=== PATIENT | male | born 1950 | race African-American/Black ===

== ENCOUNTER 2018-06-25 10:21 | Inpatient (IN) | payer OTHER ==
--- NOTE | 2018-06-25 09:27 | PN ---
Progress Note (short form) - Note Progress Note: 67M s/p LEFT total knee replacement POD #0. -Pain control. -DVT PPx: -Chemical: Lovenox, Warfarin: bridge to therapeutic INR (2-3). -Mechanical: BARB's, SCD's. -Incentive spirometry q15 min. -PT/OT/Rehab, OOB. -WBAT RLE. -Post-op Ancef x 3 doses. -f/u post-op TOV: 8 hours max. -f/u AM labs. -f/u drain output. -Diet as tolerated. -Care per medical hospitalist team. -Discharge planning: f/u [facility] [place] [facility] 07/03/2018; call for appointment . -Will follow. Jonathan Langston MD (Orthopaedic Surgery).
[2018-06-25 11:19] LABS: INR 1.18 (0.82-1.09); PROTHROMBIN TIME (PATIENT) 13.2 SEC (10.2-13.0)
[2018-06-25] MEDS ORDERED: TRANEXAMIC ACID 1000 MG/10 ML VIAL IVPUSH ONE (12:00)
[2018-06-25] MEDS ORDERED: CEFAZOLIN 2 GM in DEXTROSE 5%-WATER - 50 ML IVPB ONE (12:00)
[2018-06-25] MEDS ORDERED: VANCOMYCIN 1,750 MG in DEXTROSE 5%-WATER - 500 ML IVPB ONE (12:00)
[2018-06-25] MEDS ORDERED: MIDAZOLAM HCL 2 MG/2 ML SINGLE DOSE VIAL ONE ×2 (12:12→14:49)
[2018-06-25] MEDS ORDERED: BUPIVACAINE LIPOSOME/PF (EXPAREL) 266 MG/20 ML VIAL ONE (12:12)
[2018-06-25] MEDS ORDERED: SODIUM CHLORIDE 0.9% P/F 10 ML VIAL IJ ONE (12:13)
[2018-06-25] MEDS ORDERED: MAGNESIUM HYDROX 2400MG/30ML ORAL SUSPENSION 30 ML CUP PO PRN (14:49)
[2018-06-25] MEDS ORDERED: MAG HYDROX/AL HYDROX/SIMETH 30 ML UNIT-DOSE CUP PO PRN (14:49)
[2018-06-25] MEDS ORDERED: ONDANSETRON 4 MG/2 ML VIAL IVPUSH PRN ×2 (14:49→16:34)
--- NOTE | 2018-06-25 14:55 | OP ---
Operative Note - Note: Operative Date: 06/25/18 Pre-Operative Diagnosis: Tricompartment osteoarthritis left knee Operation: Left total knee replacement Implants: [employer]. Femur - 5. Tibia - 6, [id number] stem. Poly - 16mm , TS. Patella - 27mm, symmetric Surgeon: Jonathan Langston Compensation Adjuster: Hilario Langston Anesthesiologist/COACH OPERATOR: Pato Patrick Anesthesia: Spinal Specimens Removed: Bone, soft tissue Estimated Blood Loss (mls): 0 Drains & Tubes with Location: 1 x deep HemoVac Fluid Volume Replaced (mls): 1,800 (Crystalloid) Operative Report Dictated: Yes
[2018-06-25] MEDS ORDERED: LACTATED RINGERS SOLUTION 1,000 ML IV SCH (15:00)
[2018-06-25] MEDS ORDERED: WARFARIN NA 5 MG TABLET (UD) PO SCH ×2 (15:00→18:00)
[2018-06-25] MEDS ORDERED: PATIENT'S OWN MEDICATION (NON-FORMULARY) (Warfarin Sodium [Coumadin] 4 MG) PO SCH (15:00)
[2018-06-25] MEDS ORDERED: BENZOIN/ALOE VERA/STORAX/TOLU 58 ML BOTTLE ONE (15:19)
[2018-06-25] MEDS ORDERED: oxyCODONE HCL 5 MG TABLET PO PRN (16:34)
[2018-06-25] MEDS ORDERED: PROMETHAZINE HCL 25 MG/1 ML VIAL IVPUSH PRN (16:34)
[2018-06-25] MEDS: ACETAMINOPHEN 325 MG TABLET (FP) PO SCH ×2 (17:00→22:56)
--- NOTE | 2018-06-25 17:41 | CONSULT ---
Consultation: REQUESTING PROVIDER: Dr. Jonathan Langston CONSULT REQUEST: We have been asked to medically evaluate this patient post- operatively. 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 Jonathan Langston. REVIEW OF SYSTEMS: CONSTITUTIONAL: Absent: fever, chills, diaphoresis, generalized weakness, malaise, loss of appetite, weight change HEENT: Absent: rhinorrhea, nasal congestion, throat pain, throat swelling, difficulty swallowing, mouth swelling, ear pain, eye pain, visual changes CARDIOVASCULAR: Absent: chest pain, syncope, palpitations, irregular heart rate, lightheadedness , peripheral edema RESPIRATORY: Absent: cough, shortness of breath, dyspnea with exertion, orthopnea, wheezing, stridor, hemoptysis GASTROINTESTINAL: Absent: abdominal pain, abdominal distension, nausea, vomiting, diarrhea, constipation, melena, hematochezia GENITOURINARY: Absent: dysuria, frequency, urgency, hesitancy, hematuria, flank pain, genital pain MUSCULOSKELETAL: Absent: myalgia, arthralgia, joint swelling, back pain, neck pain SKIN: Absent: rash, itching, pallor HEMATOLOGIC/IMMUNOLOGIC: Absent: easy bleeding, easy bruising, lymphadenopathy, frequent infections ENDOCRINE: Absent: unexplained weight gain, unexplained weight loss, heat intolerance, cold intolerance NEUROLOGIC: Absent: headache, focal weakness or paresthesias, dizziness, unsteady gait, seizure, mental status changes, bladder or bowel incontinence PSYCHIATRIC: Absent: anxiety, depression, suicidal or homicidal ideation, hallucinations. PHYSICAL EXAMINATION Vital Signs - 24 hr 06/25/18 06/25/18 06/25/18 11:07 15:53 15:55 Temperature 98.5 F 97.6 F Pulse Rate 80 77 76 Respiratory 18 22 H 18 Rate Blood Pressure 152/86 152/90 156/90 O2 Sat by Pulse 97 99 Oximetry (%) 06/25/18 17:03 Temperature 97.6 F Pulse Rate 68 Respiratory 14 Rate Blood Pressure 148/82 O2 Sat by Pulse Oximetry (%) GENERAL: Awake, alert, and fully oriented. Anxious. HEAD: Normal with no signs of trauma. EYES: Pupils equal, round and reactive to light, extraocular movements intact, sclera anicteric, conjunctiva clear. No lid lag. EARS, NOSE, THROAT: Ears normal, nares patent, oropharynx clear without exudates. Moist mucous membranes. NECK: Normal range of motion, supple without lymphadenopathy, JVD, or masses. LUNGS: Breath sounds equal, clear to auscultation bilaterally. No wheezes, and no crackles. No accessory muscle use. HEART: Regular rate and rhythm, normal S1 and S2 without murmur, rub or gallop. ABDOMEN: Soft, nontender, not distended, normoactive bowel sounds, no guarding, no rebound, no masses. No hepatomegaly or splenomegaly. MUSCULOSKELETAL: Normal range of motion at all joints. No bony deformities or tenderness. No CVA tenderness. UPPER EXTREMITIES: 2+ pulses, warm, well-perfused. No cyanosis. No clubbing. Cap refill <2 seconds. No peripheral edema. LOWER EXTREMITIES: 2+ pulses, warm, well-perfused. LLE: blood soaked through surgical dressings, unwrapped, taken down to surgicel which had strikethrough; hemovac draining sanguinous fluid NEUROLOGICAL: Cranial nerves II-XII intact. Normal speech. Laboratory Results - last 24 hr 06/25/18 10:54 PT with INR 13.2 H INR 1.18 Active Medications Generic Name Dose Route Start Last Admin Trade Name Freq PRN Reason Stop Dose Admin Acetaminophen 650 mg 06/25/18 17:00 06/25/18 17:00 Tylenol - PO 06/28/18 16:59 650 mg Q6H FERNANDA Administration Al Hydroxide/Mg Hydroxide 30 ml 06/25/18 14:49 Mylanta Oral Suspension - PO Q4H PRN DYSPEPSIA Amlodipine Besylate 10 mg 06/26/18 10:00 Norvasc - PO DAILY FERNANDA Aspirin 81 mg 06/26/18 10:00 Ecotrin - PO BID FERNANDA Enoxaparin Sodium 60 mg 06/26/18 10:00 Lovenox - SQ BID FERNANDA Fentanyl 50 mcg 06/25/18 16:34 Sublimaze Injection - IVPUSH 06/26/18 03:00 Q5M PRN PAIN-PACU ORDER X 4 DOSES ONLY Finasteride 5 mg 06/25/18 22:00 Proscar - PO HS FERNANDA Cefazolin Sodium 1 gm in 50 mls @ 100 mls/hr 06/25/18 21:00 Ancef 1 Gm Premixed Ivpb - IVPB 06/26/18 13:29 Q8H [facility] Lactated Ringer's 1,000 mls @ 125 mls/hr 06/25/18 15:00 Lactated Ringers Solution IV 06/26/18 06:00 ASDIR [facility] Lisinopril 40 mg 06/26/18 10:00 Prinivil PO DAILY [facility] Magnesium Hydroxide 30 ml 06/25/18 14:49 Milk Of Magnesia - PO PRN PRN CONSTIPATION Metoprolol Succinate 50 mg 06/26/18 10:00 Toprol Xl - PO DAILY [facility] Multivitamins/Minerals/Vitamin C 1 tab 06/26/18 10:00 Tab-A-Vit - PO DAILY [facility] Ondansetron HCl 4 mg 06/25/18 16:34 Zofran Injection IVPUSH Q6H PRN NAUSEA AND/OR VOMITING Oxycodone HCl 5 mg 06/25/18 16:34 Roxicodone - PO Q3H PRN PAIN LEVEL 1-5 Oxycodone HCl 10 mg 06/25/18 16:34 Roxicodone - PO Q3H PRN PAIN LEVEL 6-10 Oxycodone HCl 10 mg 06/25/18 22:00 Oxycontin - PO 06/28/18 16:35 BID [facility] Pantoprazole Sodium 40 mg 06/26/18 10:00 Protonix - PO DAILY [facility] Phenytoin Sodium 500 mg 06/25/18 22:00 Dilantin - PO HS [facility] Promethazine HCl 12.5 mg 06/25/18 16:34 Phenergan Injection - IVPUSH Q6H PRN NAUSEA-FOR RESCUE AFTER 15 MIN Senna/Docusate Sodium 1 tablet 06/25/18 22:00 Pericolace - PO BID [facility] Tamsulosin HCl 0.4 mg 06/25/18 22:00 Flomax - PO HS [facility] Warfarin Sodium 5 mg 06/25/18 18:00 Coumadin - PO Q48H [facility] Warfarin Sodium 10 mg 06/26/18 18:00 Coumadin - PO Q48H [facility] ASSESSMENT/PLAN: 67 year-old male with a PMH significant for HTN, HLD, 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 Jonathan Langston. Surgical dressing with significant strikethrough Hemovac drain - need measurement has been getting subtherapeutic lovenox pre-op as ordered by PCP, 60 BID instead of 120BID INR subtherapeutic 1.18 on coumadin Start heparin drip type and screen stat cbc 2 U on standby stop ASA --POD #0 --perioperative antibiotics per surgery --pain management per surgery --ASA 81mg BID --protonix --bowel regimen --incentive spirometry --Hemovac drain, monitor output FEN Fluids: PO intake adequate Electrolytes: replete as indicated Nutrition: regular diet DVT prophylaxis: OOB, ambulation, SCDs, TEDs, heparin drip PTT goal 60-80 Physical therapy Dispo: We will continue to follow the patient. Thank you for this consultative opportunity. Visit type - Emergency Visit Emergency Visit: No - New Patient This patient is new to me today: Yes Date on this admission: 06/26/18 - Critical Care Critical Care patient: No
[2018-06-25] MEDS ORDERED: HEPARIN NA (PORCINE) 5,000 UNITS/ML 1ML VIAL IVPUSH PRN ×2 (20:58)
[2018-06-25] MEDS ORDERED: HEPARIN SOD,PORK IN 0.45% NACL 25,000 UNITS/500 ML INFUS.BAG IVPB SCH ×2 (21:00→21:56)
[2018-06-25] MEDS: CEFAZOLIN 1 GM/D5W 1 GM/50 ML BAG IVPB SCH (21:14)
[2018-06-25] MEDS: TAMSULOSIN HCL 0.4 MG CAP PO SCH (21:14)
[2018-06-25] MEDS: SENNOSIDES/DOCUSATE COMBO (SENNA PLUS) TABLET (UD) PO SCH (21:14)
[2018-06-25] MEDS: FINASTERIDE 5 MG TABLET (FP) PO SCH (21:14)
[2018-06-25] MEDS: PHENYTOIN NA EXTENDED 100 MG CAPSULE (FP) PO SCH (21:15)
[2018-06-25] MEDS: oxyCODONE HCL 10 MG SUSTAINED ACTING TABLET PO SCH (21:15)
[2018-06-25] MEDS ORDERED: HEPARIN NA (PORCINE) 5,000 UNITS/ML 1ML VIAL IVPUSH ONE (21:55)
[2018-06-25] MEDS ORDERED: ENOXAPARIN NA (PORCINE) 60 MG/0.6 ML DISP.SYRIN SQ SCH (22:00)
[2018-06-25 22:17] LABS: EOS % 0.2 % (0-4.5); HEMATOCRIT 39.2 % (35.4-49); MCH 30.3 pg (25.7-33.7); MCHC 33.1 g/dl (32.0-35.9); MEAN CELL VOLUME 91.8 fl (80-96); MEAN PLT VOLUME 8.9 fl (7.5-11.1); MONO % 9.4 % (3.8-10.2); NEUT % 84.4 % (42.8-82.8); PLATELET COUNT 150 K/MM3 (134-434); RBC 4.27 M/mm3 (4.00-5.60); RDW 14.5 % (11.9-15.9); WHITE BLOOD COUNT 9.6 K/mm3 (4.0-10.8)
[2018-06-25 22:24] LABS: ANION GAP 7 MMOL/L (8-16); BLOOD UREA NITROGEN 15 mg/dl (7-18); CALCIUM 8.4 mg/dl (8.5-10); CHLORIDE 104 mmol/L (98-107); CO2 23 mmol/L (21-32); CREATININE 0.9 mg/dl (0.55-1.3); GLUCOSE,RANDOM 198 mg/dl (74-106); MAGNESIUM 1.7 mg/dL (1.8-2.4); POTASSIUM 3.4 mmol/L (3.5-5.1); SODIUM 134 mmol/L (136-145)
[2018-06-25] MEDS ORDERED: MAGNESIUM OXIDE 400 MG TABLET (FP) PO ONE (22:40)
[2018-06-25] MEDS ORDERED: POTASSIUM CHLORIDE TABS 20 MEQ TABLET.ER (FP) PO ONE (22:50)
[2018-06-25] MEDS: HEPARIN INFUSION - 25,000 UNITS/500 ML INFUS.BAG IVPB SCH (22:57)
[2018-06-26] MEDS ORDERED: ENOXAPARIN NA (PORCINE) 60 MG/0.6 ML DISP.SYRIN SQ SCH ×2 (00:30→10:00)
--- NOTE | 2018-06-26 01:37 | OP ---
DATE OF OPERATION: 06/25/2018 SURGEON: Jonathan Langstno MD INSPECTOR OF WEIGHTS AND MEASURES: Hilario Langston MD; JIGNESH Choi PREOPERATIVE DIAGNOSIS: Tricompartment osteoarthritis left knee (fixed varus, fixed flexed). POSTOPERATIVE DIAGNOSIS: Tricompartment osteoarthritis left knee (fixed varus, fixed flexed). OPERATION PERFORMED: Posterior stabilized total knee arthroplasty ([place]). ANESTHESIA: Spinal with conscious sedation and peripheral nerve block. ANTIBIOTICS GIVEN: Kefzol 3 g, 1 g Kefzol given at the end of the procedure at the time of release of the tourniquet. OPERATION DETAILS: Patient was correctly identified and brought to the operating room. The left lower extremity was prepped and draped in the routine manner with betadine scrub solution, wiped off with alcohol, and DuraPrep applied. Midline incision was utilized. Timeout was called. In a bloodless field, the incision was taken through the skin and subcutaneous tissue to the quadriceps tendon. The quadriceps tendon was dissected appropriately. The quadriceps tendon was split longitudinally and curved around the medial aspect of the patella to the medial aspect of the tibial tubercle, thus creating a classic approach for a total knee arthroplasty. The patella, femur, and tibia were evident of severe destructive arthropathy. Massive osteophyte formation and severely diseased synovium was extensively noted. The synovium, to start, required complete synovectomy. This was hemosiderin-stained synovium, diffuse throughout. Dissection was taken right down to the fascial layer and the entire synovium peeled off without any difficulty. Once this had been performed, the patella was capsized laterally. The patellar cut was made from patellar ligament to quadriceps tendon and the lag holes and jig were for a size 27-mm patellar button. The patella was seated proximally and then distally and not directly in the center of the patella. The knee was flexed. The appropriate soft tissues were dissected off of the tibia with sharp dissection. The cruciate ligaments were transected and the blunt Ernst was replaced behind the tibial plateau, leaving the tibia forward and extending rotation of the tibia and brought about easy access to the tibia itself. Once this has been performed, the appropriate extramedullary jig of Malcom was seated and the tibial cut was made to be ended neutral alignment to the actual tibial shaft. The amount of bone resected was extensive because of the severe deformity of the franny on the medial tibial plateau surface. Once this had been performed, the tibia was measured as a size 6. The femur was then prepared in the appropriate manner with the initial starting hole just anterior to the insertion of the posterior cruciate ligament. The appropriate distal jigs were set for a 10 mm resection of the femur and 4 degrees of varus seated. It must be noted that the correction of the extension gap had been achieved already with the release of the soft tissue off of the medial aspect of the tibia. The femoral cuts were then performed using a size 5 jig. A 5 femoral component seated, which seated well. The appropriate box for the peg of the posterior stabilized component was appropriately resected. A cancellous plug was made and plugged the hole of the tibia. Once the trialing of the components, which was a size 5 femur, size 6 tibia, and a size 27-mm patellar button, the best opted size was a size 16-mm polyethylene with an appropriate TS, that is a fixed condylar-type component inserted. The tissues were thoroughly lavaged throughout. The bone bed as thoroughly lavaged with normal saline set at appropriate pulse lavage settings and appropriate drainage. Cementing was in 1 stage; tibia followed by femur followed by patella. All extraneous cement was removed. Cement cured. The size 16 polyethylene liner was inserted with a TS restrained-type post inserted. No complications throughout. What was concerning was the attenuation of the lateral collateral ligament that was because of his chronic varus deformity. Once the TS component was inserted and a 50 mL addendum stem was placed on the actual tibial component, the knee was reduced and range of movement was 0 to 120 degrees. The ligaments were in the correct anatomic site and were completely normal. The wound was thoroughly lavaged. Closure: Quadriceps tendon and fascia with 1 Vicryl, subcutaneous tissue 1 and 2-0 Vicryl, and skin with 2-0 Monocryl with Steri-Strips. Drainage: One-eighth inch Hemovac x1. OVERALL COMMENT: Operation went extremely well with no complications. MD HOLLY Rousseau/[id number]
[2018-06-26] MEDS: ACETAMINOPHEN 325 MG TABLET (FP) PO SCH ×3 (04:21→18:00)
[2018-06-26] MEDS: CEFAZOLIN 1 GM/D5W 1 GM/50 ML BAG IVPB SCH ×2 (04:22→13:40)
[2018-06-26] MEDS: oxyCODONE HCL 5 MG TABLET PO PRN ×2 (06:25→09:59)
[2018-06-26 08:10] LABS: HEMATOCRIT 36.6 % (35.4-49); HEMOGLOBIN 12.1 GM/dl (11.7-16.9); MCH 30.6 pg (25.7-33.7); MCHC 33.2 g/dl (32.0-35.9); MEAN CELL VOLUME 92.3 fl (80-96); MEAN PLT VOLUME 9.1 fl (7.5-11.1); PLATELET COUNT 146 K/MM3 (134-434); RBC 3.96 M/mm3 (4.00-5.60); RDW 13.8 % (11.9-15.9); WHITE BLOOD COUNT 9.6 K/mm3 (4.0-10.8)
[2018-06-26 08:15] LABS: ANION GAP 10 MMOL/L (8-16); BLOOD UREA NITROGEN 12 mg/dl (7-18); CALCIUM 8.1 mg/dl (8.5-10); CHLORIDE 102 mmol/L (98-107); CO2 23 mmol/L (21-32); CREATININE 0.9 mg/dl (0.55-1.3); GLUCOSE,RANDOM 189 mg/dl (74-106); POTASSIUM 3.6 mmol/L (3.5-5.1); SODIUM 135 mmol/L (136-145)
--- NOTE | 2018-06-26 09:10 | PN ---
Progress Note (short form) - Note Progress Note: 67M POD1 s/p left TKR under spinal anesthetic with peripheral nerve blocks doing well. Pt states that pain is well controlled and reports no anesthetic complications. AVSS. Motor and sensory exam intact in bilateral lower extremities.
[2018-06-26] MEDS: MULTIVITAMINS (DAILY MVI) TABLET (FP) PO SCH (10:00)
[2018-06-26] MEDS: oxyCODONE HCL 10 MG SUSTAINED ACTING TABLET PO SCH (10:00)
[2018-06-26] MEDS: LISINOPRIL 20 MG TABLET (FP) PO SCH (10:00)
[2018-06-26] MEDS: PANTOPRAZOLE 40 MG TABLET (FP) PO SCH (10:00)
[2018-06-26] MEDS: amLODIPine BESYLATE 10 MG TABLET (FP) PO SCH (10:00)
[2018-06-26] MEDS ORDERED: ASPIRIN COATED 81 MG TABLET.EC PO SCH (10:00)
[2018-06-26] MEDS: SENNOSIDES/DOCUSATE COMBO (SENNA PLUS) TABLET (UD) PO SCH ×2 (10:00→21:05)
--- NOTE | 2018-06-26 11:23 | PN ---
Physical Exam: SUBJECTIVE: Patient seen and examined in PT room. Pain is improved. OBJECTIVE: Vital Signs Period Temp Pulse Resp BP Sys/Gee Pulse Ox Last 24 Hr 97.6 F-99.0 F 63-120 14-22 140-170/72-101 97-100 GENERAL: The patient is awake, alert, and fully oriented, in no acute distress. LUNGS: CTA; mildly dyspneic with speaking HEART: Rapid, regular rate and rhythm, S1, S2 ABDOMEN: Soft, nontender, nondistended LLE: susrgical dressing c/d/i; hemovac draining sanguinous fluid NEUROLOGICAL: Cranial nerves II through XII grossly intact. Normal speech, gait not observed. Laboratory Results - last 24 hr 06/25/18 06/25/18 06/25/18 10:54 22:00 22:00 WBC RBC Hgb Hct MCV MCH MCHC RDW Plt Count MPV Absolute Neuts (auto) Neutrophils % Lymphocytes % Monocytes % Eosinophils % Basophils % PT with INR 13.2 H INR 1.18 PTT (Actin FS) Sodium 134 L Potassium 3.4 L Chloride 104 Carbon Dioxide 23 Anion Gap 7 L BUN 15 Creatinine 0.9 Creat Clearance w eGFR 83.67 Random Glucose 198 H Calcium 8.4 L Magnesium 1.7 L Blood Type A POSITIVE Antibody Screen Negative Crossmatch See Detail 06/25/18 06/25/18 06/26/18 22:00 22:00 00:00 WBC 9.6 RBC 4.27 Hgb 13.0 Hct 39.2 MCV 91.8 MCH 30.3 MCHC 33.1 RDW 14.5 Plt Count 150 MPV 8.9 Absolute Neuts (auto) 8.1 Neutrophils % 84.4 H Lymphocytes % 6.0 L Monocytes % 9.4 Eosinophils % 0.2 Basophils % 0.0 PT with INR INR PTT (Actin FS) 22.3 L Sodium Potassium Chloride Carbon Dioxide Anion Gap BUN Creatinine Creat Clearance w eGFR Random Glucose Calcium Magnesium Blood Type A POSITIVE Antibody Screen Crossmatch 06/26/18 06/26/18 06/26/18 06:00 06:00 06:30 WBC 9.6 RBC 3.96 L Hgb 12.1 Hct 36.6 MCV 92.3 MCH 30.6 MCHC 33.2 RDW 13.8 Plt Count 146 MPV 9.1 Absolute Neuts (auto) Neutrophils % Lymphocytes % Monocytes % Eosinophils % Basophils % PT with INR INR PTT (Actin FS) 77.1 H D Sodium 135 L Potassium 3.6 Chloride 102 Carbon Dioxide 23 Anion Gap 10 BUN 12 Creatinine 0.9 Creat Clearance w eGFR 83.67 Random Glucose 189 H Calcium 8.1 L Magnesium Blood Type Antibody Screen Crossmatch Active Medications Generic Name Dose Route Start Last Admin Trade Name Freq PRN Reason Stop Dose Admin Acetaminophen 650 mg 06/25/18 17:00 06/26/18 04:21 Tylenol - PO 06/28/18 16:59 650 mg Q6H FERNANDA Administration Al Hydroxide/Mg Hydroxide 30 ml 06/25/18 14:49 Mylanta Oral Suspension - PO Q4H PRN DYSPEPSIA Amlodipine Besylate 10 mg 06/26/18 10:00 06/26/18 10:00 Norvasc - PO 10 mg DAILY FERNANDA Administration Finasteride 5 mg 06/25/18 22:00 06/25/18 21:14 Proscar - PO 5 mg HS FERNANDA Administration Heparin Sodium (Porcine) 1,000 unit 06/25/18 20:58 Heparin - IVPUSH PRN PRN Heparin Heparin Sodium (Porcine) 5,000 unit 06/25/18 20:58 Heparin - IVPUSH PRN PRN Heparin Cefazolin Sodium 1 gm in 50 mls @ 100 mls/hr 06/25/18 21:00 06/26/18 04:22 Ancef 1 Gm Premixed Ivpb - IVPB 06/26/18 13:29 100 mls/hr Q8H FERNNADA Administration Heparin Sodium/Dextrose 25,000 units in 500 mls @ 30 mls/hr 06/25/18 23:00 22:57 Heparin Infusion - IVPB 1,500 units/hr TITR FERNANDA 30 mls/hr Administration Protocol 1,500 UNITS/HR Lisinopril 40 mg 06/26/18 10:00 06/26/18 10:00 Prinivil PO 40 mg DAILY FERNANDA Administration Magnesium Hydroxide 30 ml 06/25/18 14:49 Milk Of Magnesia - PO PRN PRN CONSTIPATION Metoprolol Succinate 50 mg 06/26/18 10:00 06/26/18 10:00 Toprol Xl - PO 50 mg DAILY FERNANDA Administration Multivitamins/Minerals/Vitamin C 1 tab 06/26/18 10:00 06/26/18 10:00 Tab-A-Vit - PO 1 tab DAILY FERNANDA Administration Ondansetron HCl 4 mg 06/25/18 16:34 Zofran Injection IVPUSH Q6H PRN NAUSEA AND/OR VOMITING Oxycodone HCl 5 mg 06/25/18 16:34 06/25/18 18:23 Roxicodone - PO 5 mg Q3H PRN Administration PAIN LEVEL 1-5 Oxycodone HCl 10 mg 06/25/18 16:34 06/26/18 09:59 Roxicodone - PO 10 mg Q3H PRN Administration PAIN LEVEL 6-10 Oxycodone HCl 10 mg 06/25/18 22:00 06/26/18 10:00 Oxycontin - PO 06/28/18 16:35 10 mg BID FERNANDA Administration Pantoprazole Sodium 40 mg 06/26/18 10:00 06/26/18 10:00 Protonix - PO 40 mg DAILY FERNANDA Administration Phenytoin Sodium 500 mg 06/25/18 22:00 06/25/18 21:15 Dilantin - PO 500 mg HS FERNANDA Administration Senna/Docusate Sodium 1 tablet 06/25/18 22:00 06/26/18 10:00 Pericolace - PO 1 tablet BID FERNANDA Administration Tamsulosin HCl 0.4 mg 06/25/18 22:00 06/25/18 21:14 Flomax - PO 0.4 mg HS FERNANDA Administration Warfarin Sodium 7.5 mg 06/26/18 18:00 Coumadin - PO DAILY@1800 [facility] ASSESSMENT/PLAN: 67 year-old male with a PMH significant for HTN, HLD, 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 Jonathan Langston. s/p left total knee relacement --POD #1 --perioperative antibiotics complete --pain management per surgery --on heparin drip; stopped ASA --protonix --bowel regimen --incentive spirometry --Hemovac drain, monitor output Hypertension Tachycardia h/o DVT --prior to surgery patient was taking subtherapeutic dose of lovenox and coumadin was on hold --heparin drip started last night, PTT goal 60-80 --BP elevated overnight, ECG sinus tach @ 124bpm, mildly dyspneic with speaking --concern for DVT, moderate Wells risk; d-dimer stat; CTA --echo --telemetry monitoring --increase Toprol XL to 50mg BID for HTN; continue lisinopril, amlodipine FEN Fluids: PO intake adequate Electrolytes: replete as indicated Nutrition: regular diet DVT prophylaxis: OOB, ambulation, SCDs, TEDs, heparin drip; dose coumadin tonight Physical therapy Dispo: We will continue to follow the patient. Thank you for this consultative opportunity. Visit type - Emergency Visit Emergency Visit: Yes ED Registration Date: 06/25/18 Care time: The patient presented to the Emergency Department on the above date and was hospitalized for further evaluation of their emergent condition. - New Patient This patient is new to me today: No - Critical Care Critical Care patient: No
[2018-06-26] MEDS: HEPARIN INFUSION - 25,000 UNITS/500 ML INFUS.BAG IVPB SCH ×2 (11:38→12:42)
[2018-06-26] MEDS ORDERED: metoPROLOL SUCCINATE 25 MG TAB.SR.24H (FP) PO ONE ×2 (13:15→22:00)
--- NOTE | 2018-06-26 14:42 | CON.CARD ---
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 POD1 from surgery, tachycardia noted. Prior to surgery he stopped warfarin for 5 days and was on lovenox, however dose was 60 mg BID ( weight 120 kg). INR subtherapeutic on coumadin, concern for PE so heparin gtt. No chest pain, dyspnea. has had knee pain, improving. - Alcohol/Substance Use Hx Alcohol Use: No - Smoking History Smoking history: Never smoked Have you smoked in the past 12 months: No Home Medications - Allergies Allergies/Adverse Reactions: Allergies Allergy/AdvReac Type Severity Reaction Status Date / Time No Known Allergies Allergy Verified 06/12/18 10:41 - Home Medications Home Medications: Ambulatory Orders Amlodipine Besylate/Benazepril [Lotrel ] 1 each PO DAILY 06/12/18 Finasteride [Proscar -] 5 mg PO HS 06/12/18 Metoprolol Succinate [Toprol Xl] 50 mg PO DAILY 06/12/18 Phenytoin Sodium Extended 500 mg PO HS 06/12/18 Tamsulosin HCl [Flomax] 0.4 mg PO HS 06/12/18 Warfarin Sodium [Coumadin] 4 mg PO Q48H 06/12/18 Warfarin Sodium [Coumadin] 5 mg PO Q48H 06/12/18 Enoxaparin [Lovenox -] 60 mg SQ BID 06/25/18 Family Disease History - Family Disease History Family History: Unremarkable Review of Systems - Review of Systems Constitutional: reports: No Symptoms Eyes: reports: No Symptoms HENT: reports: No Symptoms Neck: reports: No Symptoms Cardiovascular: reports: No Symptoms Respiratory: reports: No Symptoms Gastrointestinal: reports: No Symptoms Genitourinary: reports: No Symptoms Musculoskeletal: reports: No Symptoms Integumentary: reports: No Symptoms Neurological: reports: No Symptoms Endocrine: reports: No Symptoms Hematology/Lymphatic: reports: No Symptoms Psychiatric: reports: No Symptoms Vital Signs: Vital Signs Temperature 99.4 F 06/26/18 14:15 Pulse Rate 121 H 06/26/18 14:15 Respiratory Rate 06/26/18 14:15 Blood Pressure 136/84 06/26/18 14:15 O2 Sat by Pulse Oximetry (%) 96 06/26/18 14:15 Constitutional: Yes: No Distress, Calm Eyes: Yes: Conjunctiva Clear, EOM Intact HENT: Yes: Atraumatic, Normocephalic Neck: Yes: Supple, Trachea Midline Respiratory: Yes: Regular, CTA Bilaterally Gastrointestinal: Yes: Normal Bowel Sounds, Soft Cardiovascular: Yes: Regular Rate and Rhythm, Tachycardia JVD: No Carotid Bruit: No PMI: Non-Displaced Heart Sounds: Yes: S1, S2 Murmur: No: Systolic Murmur Musculoskeletal: No: Back Pain Extremities: No: Cold Edema: No Peripheral Pulses WNL: Yes Peripheral Pulses: 2+ Left Doralis Pedis, 2+ Right Dorsalis Pedis Integumentary: No: Jaundice Neurological: Yes: Alert, Oriented Psychiatric: No: Agitated - Other Data Labs, Other Data: CBC, BMP 06/26/18 06:00 06/26/18 06:00 INR, PTT INR 1.18 (0.82-1.09) 06/25/18 10:54 Assessment/Plan EKG: sinus tachycardia, delayed R wave progression, no ischemic changes tele: sinus tachycardia 120s-130s 67M h/o HTN, HLD, h/o DVT p/w tachycardia after total knee replacement tachycardia, hx dvt - hx dvt with subtherapeutic lovenox dosing and subtherapeutic INR - concern for PE, CTA chest pending - on heparin gtt, warfarin started - pain control - replete lytes for K>4.0, Mg 2.0 - echo pending HTN - on toprol, lisinopril, amlodipine - BP improving, continue current meds s/p L TKR - manage per ortho
--- NOTE | 2018-06-26 15:41 | PN ---
Progress Note (short form) - Note Progress Note: POD#1 Pt without any CP, SOB. OOB this am to a chair. Tolerating a diet and voiding without difficulty. Vital Signs Period Temp Pulse Resp BP Sys/Gee Pulse Ox Last 24 Hr 97.6 F-99.4 F 63-131 14-22 131-170/72-101 96-100 . ERIN: 260ml since the OR(bloody) GEN: Appears comfortable CV: RR, tachycardic Lungs: CTA b/l anteriorly Left knee: dressing c/d/i(outer dressing changed last pm because it was bloody) . 07/20 dorsi/platnar fleixon b/l with +2 dp b/l. BARB/scds in place no LE edema or swelling noted. CT scan of the chest: limited study, no good opacification of peripheral arteries. NO cettrall PE visualized. CBC, BMP /02/03 06:00 06/26/18 06:00 Laboratory Tests 06/25/18 22:00 WBC 9.6 Hgb 13.0 Hct 39.2 Plt Count 150 Laboratory Tests 06/26/18/02/03 06:30 09:00 PTT (Actin FS) 77.1 H D D-Dimer 00798 H A/P: 67 yo male s/p L TKR, POD#1 with tachycardia and HTN PT seen by cardiology and recommend to continue htn meds, BP improving CT of chest Negative for central/large PE Pt being treated with IV heparin, if H&H stable in the am recommend to transition to lovenox/coumadin(coumadin 7.5 mg to be given tonight) diet as toelrated CBC in the am D/w. Dr. Wang
--- NOTE | 2018-06-26 16:15 | FALL ---
Fall Exam - Event Witnessed fall: No Location of Fall: Patient Room Fall from: Stood up from chair to walk to bathroom - Pre-Fall Mental Status: Alert, Oriented Current Medications: Current Medications Generic Name Dose Route Start Last Admin Trade Name Freq PRN Reason Stop Dose Admin Acetaminophen 650 mg 06/25/18 17:00 06/26/18 11:48 Tylenol - PO 06/28/18 16:59 650 mg Q6H FERNANDA Administration Al Hydroxide/Mg Hydroxide 30 ml 06/25/18 14:49 Mylanta Oral Suspension - PO Q4H PRN DYSPEPSIA Amlodipine Besylate 10 mg 06/26/18 10:00 06/26/18 10:00 Norvasc - PO 10 mg DAILY FERNANDA Administration Finasteride 5 mg 06/25/18 22:00 06/25/18 21:14 Proscar - PO 5 mg HS FERNANDA Administration Heparin Sodium (Porcine) 1,000 unit 06/25/18 20:58 Heparin - IVPUSH PRN PRN Heparin Heparin Sodium (Porcine) 5,000 unit 06/25/18 20:58 Heparin - IVPUSH PRN PRN Heparin Heparin Sodium/Dextrose 25,000 units in 500 mls @ 30 mls/hr 06/25/18 23:00 12:42 Heparin Infusion - IVPB 1,500 units/hr TITR FERNANDA 30 mls/hr Administration Protocol 1,500 UNITS/HR Lisinopril 40 mg 06/26/18 10:00 06/26/18 10:00 Prinivil PO 40 mg DAILY FERNANDA Administration Magnesium Hydroxide 30 ml 06/25/18 14:49 Milk Of Magnesia - PO PRN PRN CONSTIPATION Metoprolol Succinate 50 mg 06/27/18 10:00 Toprol Xl - PO BID FERNANDA Metoprolol Succinate 25 mg 06/26/18 22:00 Toprol Xl - PO 06/26/18 22:01 ONCE ONE Multivitamins/Minerals/Vitamin C 1 tab 06/26/18 10:00 06/26/18 10:00 Tab-A-Vit - PO 1 tab DAILY FERNANDA Administration Ondansetron HCl 4 mg 06/25/18 16:34 Zofran Injection IVPUSH Q6H PRN NAUSEA AND/OR VOMITING Oxycodone HCl 5 mg 06/25/18 16:34 06/25/18 18:23 Roxicodone - PO 5 mg Q3H PRN Administration PAIN LEVEL 1-5 Oxycodone HCl 10 mg 06/25/18 16:34 06/26/18 09:59 Roxicodone - PO 10 mg Q3H PRN Administration PAIN LEVEL 6-10 Oxycodone HCl 10 mg 06/25/18 22:00 06/26/18 10:00 Oxycontin - PO 06/28/18 16:35 10 mg BID FERNANDA Administration Pantoprazole Sodium 40 mg 06/26/18 10:00 06/26/18 10:00 Protonix - PO 40 mg DAILY FERNANDA Administration Phenytoin Sodium 500 mg 06/25/18 22:00 06/25/18 21:15 Dilantin - PO 500 mg HS FERNANDA Administration Senna/Docusate Sodium 1 tablet 06/25/18 22:00 06/26/18 10:00 Pericolace - PO 1 tablet BID FERNANDA Administration Tamsulosin HCl 0.4 mg 06/25/18 22:00 06/25/18 21:14 Flomax - PO 0.4 mg HS FERNADNA Administration Warfarin Sodium 7.5 mg 06/26/18 18:00 Coumadin - PO DAILY@1800 FERNANDA - Post-Fall Patient Outcome: No Injury Exam Findings: Patient was found by physical therapist who was walking past room on the floor, lying on his left hip with the IV pole toppled over. Patient stated he wanted to walk to the bathroom. He denied hitting his head, denied LOC. Physical exam A&Ox3. No focal physical findings. Patient denies pain.Because patient is on heparin drip we will obtain head CT, left hip xray and left knee xray. Vital Signs: Vital Signs Temperature 99.4 F 06/26/18 14:15 Pulse Rate 121 H 06/26/18 14:15 Respiratory Rate 06/26/18 14:15 Blood Pressure 136/84 06/26/18 14:15 O2 Sat by Pulse Oximetry (%) 96 06/26/18 14:15 Identify factors for HIGH RISK for Head Injury: Pt on anticoagulant (Protocol 1 ordered)
--- NOTE | 2018-06-26 16:38 | EKG ---
Test Reason : Blood Pressure : / mmHG Vent. Rate : 124 BPM Atrial Rate : 124 BPM P-R Int : 144 ms QRS Dur : 096 ms QT Int : 360 ms P-R-T Axes : 000 -23 042 degrees QTc Int : 517 ms SINUS TACHYCARDIA ANTERIOR INFARCT , AGE UNDETERMINED ABNORMAL ECG NO PREVIOUS ECGS AVAILABLE Confirmed by JESUSITA GLOVER, MEHDI ([id number]) on 06/26/2018 4:38:20 PM Referred By: Jonathan Langston Confirmed By:MEHDI MC MD
[2018-06-26] MEDS ORDERED: WARFARIN NA 7.5 MG TABLET (FP) PO SCH (18:00)
[2018-06-26] MEDS ORDERED: WARFARIN NA 10 MG TABLET (FP) PO SCH (18:00)
[2018-06-26] MEDS ORDERED: MAGNESIUM SULF 50% (8.12 MEQ/2 ML-1 GM VIAL) IVPB ONE (20:27)
[2018-06-26] MEDS: TAMSULOSIN HCL 0.4 MG CAP PO SCH (21:04)
[2018-06-26] MEDS: PHENYTOIN NA EXTENDED 100 MG CAPSULE (FP) PO SCH (21:05)
[2018-06-26] MEDS: FINASTERIDE 5 MG TABLET (FP) PO SCH (21:05)
[2018-06-27] MEDS: ACETAMINOPHEN 325 MG TABLET (FP) PO SCH ×4 (00:02→18:30)
[2018-06-27] MEDS: HEPARIN INFUSION - 25,000 UNITS/500 ML INFUS.BAG IVPB SCH (00:04)
[2018-06-27 07:27] LABS: BASO % 0.3 % (0-2.0); EOS % 0.2 % (0-4.5); HEMATOCRIT 28.3 % (35.4-49); HEMOGLOBIN 9.5 GM/dl (11.7-16.9); MCHC 33.4 g/dl (32.0-35.9); MEAN CELL VOLUME 92.8 fl (80-96); MEAN PLT VOLUME 8.6 fl (7.5-11.1); MONO % 13.1 % (3.8-10.2); NEUT % 77.4 % (42.8-82.8); PLATELET COUNT 123 K/MM3 (134-434); RBC 3.05 M/mm3 (4.00-5.60); RDW 14.1 % (11.9-15.9); WHITE BLOOD COUNT 10.5 K/mm3 (4.0-10.8)
[2018-06-27 07:36] LABS: INR 1.41 (0.82-1.09); PROTHROMBIN TIME (PATIENT) 15.7 SEC (10.2-13.0)
[2018-06-27 07:39] LABS: ALBUMIN 2.8 g/dl (3.4-5.0); ALK PHOS 74 U/L (45-117); ANION GAP 4 MMOL/L (8-16); BILIRUBIN,TOTAL 0.8 mg/dl (0.2-1); BLOOD UREA NITROGEN 20 mg/dl (7-18); CALCIUM 7.9 mg/dl (8.5-10); CHLORIDE 102 mmol/L (98-107); CO2 26 mmol/L (21-32); CREATININE 1.1 mg/dl (0.55-1.3); GLUCOSE,RANDOM 151 mg/dl (74-106); MAGNESIUM 2.4 mg/dL (1.8-2.4); SGOT/AST 31 U/L (15-37); SGPT/ALT 26 U/L (13-61); SODIUM 132 mmol/L (136-145); TOT PROT 5.6 g/dl (6.4-8.2)
--- NOTE | 2018-06-27 07:45 | PN ---
Progress Note (short form) - Note Progress Note: POD #2 Alert. Sitting in chair at bedside (helped there with assistance as he's a FALL RISK). Apparently, fell yesterday while attempting to ambulate on his own to the bathroom. CT head/neck, Hip and knee xray were done s/p fall --> all results negative. C/o incisional tenderness however pain is controlled well with medications ordered. Denies n/v/f/c, CP, palpitations, SOB or PERKINS. Last Vital Signs Temp Pulse Resp BP Pulse Ox 99.9 F H 105 H 20 128/71 95 06/27/18 06:00 06/27/18 06:00 06/27/18 06:00 06/27/18 06:00 06/27/18 06:00 CBC, BMP 06/27/18 07:10 06/27/18 07:10 DRAIN OUPUT 06/26/18 06/26/18 06/26/18 06/26/18 06/27/18 02:00 06:50 14:00 22:09 06:00 Hemovac 20 80 60 20 5 PE GEN: Appears comfortable CV: RRR Lungs: CTA bilat LLE: dressing c/d/i. 5/5 dorsi/platnar fleixon b/l with +2 dp b/l. BARB/scds in place no LE edema or swelling noted. Problem List - Problems (1) Osteoarthritis of left knee Assessment/Plan: POD #2 S/P L TKA - Pain control. -DVT PPx: -Chemical: ASA 81 mg po BID x 6 weeks -Mechanical: BARB's, SCD's -Incentive Spirometry. -PT/OT/Rehab, OOB. -WBAT LLE -f/u drain output -Care per medical hospitalist team. -Discharge planning: f/u [facility] [place] office contact center team lead for appointment: Above plan discussed with Dr. Hilario Langston and agrees Code(s): M17.12 - UNILATERAL PRIMARY OSTEOARTHRITIS, LEFT KNEE
[2018-06-27] MEDS: MULTIVITAMINS (DAILY MVI) TABLET (FP) PO SCH (10:25)
[2018-06-27] MEDS: amLODIPine BESYLATE 10 MG TABLET (FP) PO SCH (10:25)
[2018-06-27] MEDS: LISINOPRIL 20 MG TABLET (FP) PO SCH (10:25)
[2018-06-27] MEDS: SENNOSIDES/DOCUSATE COMBO (SENNA PLUS) TABLET (UD) PO SCH ×2 (10:25→21:34)
[2018-06-27] MEDS: PANTOPRAZOLE 40 MG TABLET (FP) PO SCH (10:25)
--- NOTE | 2018-06-27 10:46 | ECHO ---
Name: ARIAN OCAMPO Exam:Adult Echocardiogram Study Date: 06/27/2018 09:07 AM Age: 67 yrs Reason For Study: SOB Height: 69 in Weight: 265 lb BSA: 2.3 m2 MMode/2D Measurements & Calculations IVSd: 1.3 cm Ao root diam: 3.4 cm LVIDd: 4.5 cm LA dimension: 3.2 cm LVIDs: 2.7 cm LVPWd: 1.2 cm EDV(Teich): 90.2 ml LVOT diam: 2.2 cm ESV(Teich): 28.0 ml Doppler Measurements & Calculations MV E max andi: 45.6 cm/sec Ao V2 max: 132.0 cm/sec MV A max andi: 72.6 cm/sec Ao max P.0 mmHg MV E/A: 0.63 Ao V2 mean: 109.7 cm/sec Ao mean P.1 mmHg Ao V2 VTI: 23.7 cm ALICIA(I,D): 2.9 cm2 ALICIA(V,D): 2.9 cm2 LV V1 max P.0 mmHg SV(LVOT): 68.3 ml LV V1 mean P.3 mmHg LV V1 max: 100.0 cm/sec LV V1 mean: 69.4 cm/sec LV V1 VTI: 17.8 cm Procedure A two-dimensional transthoracic echocardiogram with color flow and Doppler was performed. The study w as technically difficult with many images being suboptimal in quality. Left Ventricle The left ventricular size, thickness and function are normal. The left ventricular ejection fraction is normal. Regional wall motion abnormalities cannot be excluded due to limited visualization. Right Ventricle The right ventricle is not well visualized. Atria Normal left and right atrial size and function. Mitral Valve There is mild mitral valve thickening. The mitral valve is not well visualized. There is no mitral va lve stenosis. There is mild mitral regurgitation. Tricuspid Valve The tricuspid valve is not well visualized. There is no tricuspid stenosis. There was insufficient TR detected to calculate RV systolic pressure. Aortic Valve The aortic valve is not well visualized. No hemodynamically significant valvular aortic stenosis. No aortic regurgitation is present. Pulmonic Valve The pulmonic valve is not well visualized. Great Vessels The aortic root is normal size. Pericardium/Pleura There is no pericardial effusion. Interpretation Summary The left ventricular size, thickness and function are normal The left ventricular ejection fraction is normal. The study was technically difficult with many images being suboptimal in quality. There is mild mitral regurgitation. The right ventricle is not well visualized. Regional wall motion abnormalities cannot be excluded due to limited visualization. The mitral valve is not well visualized. The tricuspid valve is not well visualized. There was insufficient TR detected to calculate RV systolic pressure. MD Eugenio Jimenez 06/27/2018 10:46 AM
--- NOTE | 2018-06-27 14:11 | PN ---
Physical Exam: SUBJECTIVE: Patient seen and examined. Feels tired, did not sleep well last night. OBJECTIVE: Vital Signs Period Temp Pulse Resp BP Sys/Gee Pulse Ox Last 24 Hr 98.3 F-100.0 F 76-121 14-20 99-147/57-84 95-98 GENERAL: The patient is awake, alert, and fully oriented, in no acute distress. LUNGS: CTA HEART: Rapid, regular rate and rhythm, S1, S2 ABDOMEN: Soft, nontender, nondistended LLE: susrgical dressing c/d/i; hemovac draining sanguinous fluid NEUROLOGICAL: Cranial nerves II through XII grossly intact. Normal speech, gait not observed. Laboratory Results - last 24 hr 06/25/18 06/26/18 06/26/18 22:00 09:00 13:50 WBC RBC Hgb Hct MCV MCH MCHC RDW Plt Count MPV Absolute Neuts (auto) Neutrophils % Lymphocytes % Monocytes % Eosinophils % Basophils % PT with INR INR PTT (Actin FS) D-Dimer 26218 H Sodium Potassium Chloride Carbon Dioxide Anion Gap BUN Creatinine Creat Clearance w eGFR POC Glucometer Random Glucose Calcium Magnesium 1.7 L Total Bilirubin AST ALT Alkaline Phosphatase Total Protein Albumin Blood Type A POSITIVE Antibody Screen Negative Crossmatch See Detail 06/26/18 06/27/18 06/27/18 17:00 07:10 07:10 WBC 10.5 RBC 3.05 L Hgb 9.5 L Hct 28.3 L D MCV 92.8 MCH 31.0 MCHC 33.4 RDW 14.1 Plt Count 123 L MPV 8.6 Absolute Neuts (auto) 8.2 Neutrophils % 77.4 Lymphocytes % 9.0 D Monocytes % 13.1 H Eosinophils % 0.2 Basophils % 0.3 D PT with INR 15.7 H INR 1.41 H PTT (Actin FS) D-Dimer Sodium Potassium Chloride Carbon Dioxide Anion Gap BUN Creatinine Creat Clearance w eGFR POC Glucometer 166 Random Glucose Calcium Magnesium Total Bilirubin AST ALT Alkaline Phosphatase Total Protein Albumin Blood Type Antibody Screen Crossmatch 06/27/18 06/27/18 07:10 07:14 WBC RBC Hgb Hct MCV MCH MCHC RDW Plt Count MPV Absolute Neuts (auto) Neutrophils % Lymphocytes % Monocytes % Eosinophils % Basophils % PT with INR INR PTT (Actin FS) 43.4 H D D-Dimer Sodium 132 L Potassium 4.0 Chloride 102 Carbon Dioxide 26 Anion Gap 4 L BUN 20 H Creatinine 1.1 Creat Clearance w eGFR 66.37 POC Glucometer Random Glucose 151 H Calcium 7.9 L Magnesium 2.4 Total Bilirubin 0.8 AST 31 ALT 26 Alkaline Phosphatase 74 Total Protein 5.6 L Albumin 2.8 L Blood Type Antibody Screen Crossmatch Active Medications Generic Name Dose Route Start Last Admin Trade Name Freq PRN Reason Stop Dose Admin Acetaminophen 650 mg 06/25/18 17:00 06/27/18 10:23 Tylenol - PO 06/28/18 16:59 650 mg Q6H FERNANDA Administration Al Hydroxide/Mg Hydroxide 30 ml 06/25/18 14:49 Mylanta Oral Suspension - PO Q4H PRN DYSPEPSIA Amlodipine Besylate 10 mg 06/26/18 10:00 06/27/18 10:25 Norvasc - PO 10 mg DAILY FERNANDA Administration Finasteride 5 mg 06/25/18 22:00 06/26/18 21:05 Proscar - PO 5 mg HS FERNANDA Administration Heparin Sodium (Porcine) 1,000 unit 06/25/18 20:58 Heparin - IVPUSH PRN PRN Heparin Heparin Sodium (Porcine) 5,000 unit 06/25/18 20:58 Heparin - IVPUSH PRN PRN Heparin Heparin Sodium/Dextrose 25,000 units in 500 mls @ 30 mls/hr 06/25/18 23:00 00:04 Heparin Infusion - IVPB 1,500 units/hr TITR FERNANDA 30 mls/hr Administration Protocol 1,500 UNITS/HR Lisinopril 40 mg 06/26/18 10:00 06/27/18 10:25 Prinivil PO 40 mg DAILY FERNANDA Administration Magnesium Hydroxide 30 ml 06/25/18 14:49 Milk Of Magnesia - PO PRN PRN CONSTIPATION Metoprolol Succinate 50 mg 06/27/18 10:00 06/27/18 10:25 Toprol Xl - PO 50 mg BID FERNANDA Administration Multivitamins/Minerals/Vitamin C 1 tab 06/26/18 10:00 06/27/18 10:25 Tab-A-Vit - PO 1 tab DAILY FERNANDA Administration Ondansetron HCl 4 mg 06/25/18 16:34 Zofran Injection IVPUSH Q6H PRN NAUSEA AND/OR VOMITING Pantoprazole Sodium 40 mg 06/26/18 10:00 06/27/18 10:25 Protonix - PO 40 mg DAILY FERNANDA Administration Phenytoin Sodium 500 mg 06/25/18 22:00 06/26/18 21:05 Dilantin - PO 500 mg HS FERNANDA Administration Senna/Docusate Sodium 1 tablet 06/25/18 22:00 06/27/18 10:25 Pericolace - PO 1 tablet BID FERNANDA Administration Tamsulosin HCl 0.4 mg 06/25/18 22:00 06/26/18 21:04 Flomax - PO 0.4 mg HS FERNANDA Administration Warfarin Sodium 7.5 mg 06/26/18 18:00 06/26/18 20:03 Coumadin - PO 7.5 mg DAILY@1800 FERNANDA Administration ASSESSMENT/PLAN: 67 year-old male with a PMH significant for HTN, HLD, 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 Jonathan Langston. s/p left total knee relacement --POD #1 --perioperative antibiotics per surgery --pain management per surgery --on heparin drip; stopped ASA --protonix --bowel regimen --incentive spirometry --Hemovac drain monitor; yesterday 180cc's out, since midnight 10cc's Hypertension --continue lisinopril, Toprol XL daily, amlodipine Tachycardia Acute blood loss anemia --pre op Hgb 14.4, today 9.5; tachycardia persists; complaining of fatigue --06/26 Echo: LV normal; RV not well seen; mild MR --transfuse 1U PRBC h/o DVT --continue heparin drip until post-op bleeding has resolved --PTT goal 60-80 --transitioning to coumadin INR 1.41 today FEN Fluids: PO intake adequate Electrolytes: replete as indicated Nutrition: regular diet DVT prophylaxis: OOB, ambulation, SCDs, TEDs, heparin drip; dose coumadin tonight Physical therapy Dispo: We will continue to follow the patient. Thank you for this consultative opportunity. Visit type - Emergency Visit Emergency Visit: Yes ED Registration Date: 06/25/18 Care time: The patient presented to the Emergency Department on the above date and was hospitalized for further evaluation of their emergent condition. - New Patient This patient is new to me today: No - Critical Care Critical Care patient: No
--- NOTE | 2018-06-27 16:30 | HOSP ---
Subjective - Review of Symptoms Events since last encounter: Vital Signs Temperature 98.3 F 06/27/18 16:38 Pulse Rate 100 H 06/27/18 16:38 Respiratory Rate 16 06/27/18 16:38 Blood Pressure 114/52 L 06/27/18 16:38 O2 Sat by Pulse Oximetry (%) 95 06/27/18 06:00 Summoned to evaluate patient again by RN. PRBC being transfused. Left knee is tensely swollen and more painful; tenderness over calf Discussed with Dr. Hilario Langston. Ordered US bedside. Advised orally shows DVT. Stat transfer to ICU. Heparin drip was on hold while waiting for results of ultrasound. When it showed DVT, asked staff to restart heparin drip but medication had been removed from room and could no longer be used. EMT was standing by waiting to transport. Patient was given lovenox 120mg subq x 1 dose. Sign out given to Dr. Pringle. Physical Examination Vital Signs: Vital Signs Temperature 98.7 F 06/27/18 13:55 Pulse Rate 97 H 06/27/18 16:04 Respiratory Rate 16 06/27/18 16:04 Blood Pressure 123/57 L 06/27/18 16:04 O2 Sat by Pulse Oximetry (%) 95 06/27/18 06:00 Labs: CBC, BMP 06/27/18 07:10 06/27/18 07:10 Critical Care Total Critical Care Time (in minutes): 40 Critical Care Statement: The care of this patient involved high complexity decision making to prevent further life threatening deterioration of the patient 's condition and/or to evaluate & treat vital organ system(s) failure or risk of failure.
[2018-06-27 16:47] LABS: HEMATOCRIT 29.6 % (35.4-49); MCHC 33.7 g/dl (32.0-35.9); MEAN PLT VOLUME 9.3 fl (7.5-11.1); PLATELET COUNT 111 K/MM3 (134-434); RBC 3.22 M/mm3 (4.00-5.60); RDW 14.1 % (11.9-15.9); WHITE BLOOD COUNT 11.3 K/mm3 (4.0-10.8)
[2018-06-27] MEDS ORDERED: ENOXAPARIN NA (PORCINE) 120 MG/0.8 ML DISP.SYRIN SQ ONE (17:00)
[2018-06-27 17:23] LABS: INR 1.45 (0.82-1.09); PROTHROMBIN TIME (PATIENT) 16.1 SEC (10.2-13.0)
[2018-06-27 17:44] LABS: ALK PHOS 74 U/L (45-117); BILIRUBIN,TOTAL 1.1 mg/dl (0.2-1); CHLORIDE 102 mmol/L (98-107); CO2 22 mmol/L (21-32); POTASSIUM 4.2 mmol/L (3.5-5.1); SGOT/AST 39 U/L (15-37); SGPT/ALT 28 U/L (13-61)
[2018-06-27 17:59] LABS: ALBUMIN 2.9 g/dl (3.4-5.0); ANION GAP 9 MMOL/L (8-16); BLOOD UREA NITROGEN 26 mg/dl (7-18); CREATININE 1.5 mg/dl (0.55-1.3); GLUCOSE,RANDOM 128 mg/dl (74-106); MAGNESIUM 2.6 mg/dL (1.8-2.4); SODIUM 133 mmol/L (136-145)
--- NOTE | 2018-06-27 18:11 | PATH ---
Surgical Pathology Report Patient Name: ARIAN OCAMPO [facility]. Rec. #: [id number] /Age/Gender: 1950 (Age: 67) / M Account: [id number] [facility] Taken: 06/25/2018 Received: 06/25/2018 Reported: 06/27/2018 Physicians: Jonathan Langston M.D. Specimen(s) Received LEFT KNEE BONES Clinical History Osteoarthritis left knee Final Diagnosis LEFT KNEE BONES, RESECTION: DEGENERATIVE JOINT DISEASE, LEFT KNEE. Electronically Signed Gilberto Kelly M.D. Gross Description Received in formalin labeled "left knee bones," is a 17.0 x 11.0 x 2.5 cm aggregate of multiple portions of bone and soft tissue. The tibial plateau measures 9.2 x 7.0 x 2.7 cm. There are multiple areas of eburnation present, measuring up to 4.1 cm in greatest dimension. The remaining articular surfaces are stephens-yellow and diffusely granular. The underlying trabecular bone is yellow and hard. Freight Broker Agent sections are submitted in one cassette, following decalcification. /06/26/2018 [facility]06/26/2018
--- NOTE | 2018-06-27 18:27 | CONSULT ---
Consult Consult Specialty:: Pulm and Critical Care - History of Present Illness History of Present Illness: 67 yo AA M h/o HTN, HLD, LLE DVT on coumadin, seizure disorder, b/l knee replacement (L knee replacement on 06/25) transferred from [facility] for acute intra- articular hemorrhage. Prior to L knee replacement, patient's coumadin was stopped and bridged to lovenox pre-operatively. The lovenox was started on 06/22 and coumadin was stopped at the same time. However, lovenox dose was subtherapeutic at 60mg BID. After the surgery on 06/25, patient sustained a mechanical fall to his L side. He attribute the intra-articular bleeding to the fall. He received a coumadin dose of 7.5mg on 06/26. His HGB dropped from 12.1 on 06/26 to 9.5 on 06/27 and his knee wound vac is draining blood. At [facility] before transferring to [facility] ICU, he was put on heparin drip on morning, received lovenox 120mg BID at 5pm. - History Source History Provided By: Patient, Family Member Limitations to Obtaining History: No Limitations - Alcohol/Substance Use Hx Alcohol Use: No - Smoking History Smoking history: Never smoked Have you smoked in the past 12 months: No Home Medications - Allergies Allergies/Adverse Reactions: Allergies Allergy/AdvReac Type Severity Reaction Status Date / Time No Known Allergies Allergy Verified 06/12/18 10:41 - Home Medications Home Medications: Ambulatory Orders Amlodipine Besylate/Benazepril [Lotrel ] 1 each PO DAILY 06/12/18 Finasteride [Proscar -] 5 mg PO HS 06/12/18 Metoprolol Succinate [Toprol Xl] 50 mg PO DAILY 06/12/18 Phenytoin Sodium Extended 500 mg PO HS 06/12/18 Tamsulosin HCl [Flomax] 0.4 mg PO HS 06/12/18 Warfarin Sodium [Coumadin] 4 mg PO Q48H 06/12/18 Warfarin Sodium [Coumadin] 5 mg PO Q48H 06/12/18 Enoxaparin [Lovenox -] 60 mg SQ BID 06/25/18 Review of Systems - Review of Systems Constitutional: denies: Chills, Fever Cardiovascular: denies: Chest Pain, Palpitations, Shortness of Breath Genitourinary: denies: Burning, Discharge, Dysuria Musculoskeletal: reports: Extremity Pain, Joint Pain, Joint Swelling Integumentary: reports: Wound Neurological: denies: Change in Speech, Confusion Physical Exam Vital Signs: Vital Signs Temperature 98.3 F 06/27/18 16:38 Pulse Rate 100 H 06/27/18 16:38 Respiratory Rate 16 06/27/18 16:38 Blood Pressure 114/52 L 06/27/18 16:38 O2 Sat by Pulse Oximetry (%) 95 06/27/18 06:00 Constitutional: Yes: No Distress, Calm HENT: Yes: Atraumatic, Normocephalic Cardiovascular: Yes: Tachycardia, S1, S2. No: Pulse Irregular Respiratory: Yes: Regular, CTA Bilaterally Gastrointestinal: Yes: Normal Bowel Sounds, Abdomen, Obese. No: Tenderness Extremities: Yes: Calf Tenderness, Other (b/l knee replacement, R knee surgical scar, L knee dressing on, b/l LE swelling) Edema: Yes Edema: LLE: 1+, RLE: 1+ Wound/Incision: Yes: Clean/Dry, Draining (hemovac), Bleeding Neurological: Yes: Alert, Oriented Labs: CBC, BMP 06/27/18 16:30 06/27/18 16:43 Assessment/Plan 67 yo AA M h/o HTN, HLD, LLE DVT on coumadin, seizure disorder, b/l knee replacement (R knee replacement on 06/25) transferred from [facility] for acute intra- articular hemorrhage. Vascular: h/o DVT, intra-articular hemorrhage - Maintain hemovac, monitor output - s/p 1 PRBC Repeat CBC at 9pm tonight - Will restart heparin gtt tomorrow AM at 5am (12 h after last dose of lovenox) - Vascular consult MSK: s/p L knee replacement POD #2 - Pain control - Cont. bowel regimen - Incentive spirometry CV: HTN, HLD - cont. lisinopril, metoprolol and lotrel - Cardiology on broad Neuro: seizure disorder - Cont. dilantin : ?BPH - Cont. finasteride and flomax Dispo: Cont. to monitor the pt in ICU Guzman Trevino PGY3 Visit type - Emergency Visit Emergency Visit: No - New Patient This patient is new to me today: Yes Date on this admission: 06/29/18 - Critical Care Critical Care patient: Yes Total Critical Care Time (in minutes): 35 Critical Care Statement: The care of this patient involved high complexity decision making to prevent further life threatening deterioration of the patient 's condition and/or to evaluate & treat vital organ system(s) failure or risk of failure.
[2018-06-27] MEDS ORDERED: MORPHINE SULFATE 2 MG/ML VIAL IVPUSH PRN (19:07)
[2018-06-27] MEDS ORDERED: HEPARIN NA (PORCINE) 5,000 UNITS/ML 1ML VIAL IVPUSH PRN (19:17)
[2018-06-27] MEDS ORDERED: HEPARIN INFUSION - 25,000 UNITS/500 ML INFUS.BAG IVPB SCH (19:30)
[2018-06-27] MEDS: FINASTERIDE 5 MG TABLET (FP) PO SCH (21:34)
[2018-06-27] MEDS: TAMSULOSIN HCL 0.4 MG CAP PO SCH (21:34)
[2018-06-27] MEDS: PHENYTOIN NA EXTENDED 100 MG CAPSULE (FP) PO SCH (21:34)
[2018-06-27 21:58] LABS: HEMATOCRIT 27.6 % (35.4-49); HEMOGLOBIN 9.1 GM/dL (11.7-16.9); MCH 30.1 pg (25.7-33.7); MCHC 33.1 g/dl (32.0-35.9); MEAN CELL VOLUME 91.1 fl (80-96); MEAN PLT VOLUME 9.1 fl (7.5-11.1); PLATELET COUNT 107 K/MM3 (134-434); RBC 3.03 M/mm3 (4.00-5.60); RDW 15.3 % (11.9-15.9); WHITE BLOOD COUNT 11.3 K/mm3 (4.0-10.0)
--- NOTE | 2018-06-27 21:59 | HOSP ---
Subjective - Review of Symptoms Events since last encounter: Hospitalist Encounter Patient was transferred to ICU from [place] for Acute DVT LLE. s/p L- TKR POD #2 Subjective: Arrived to bedside, patient is awake, alert and oriented. Patient reports pain and increased swelling to left knee and left calf. Patient reports being constipated x3 days. 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 Jonathan Langston. POD #2 LLE Duplex- +DVT left popliteal vein CTA- neg PE Patient received Lovenox 120mg SQ, this evening, was on Heparin Drip earlier today. Plan: 1. DVT Continue ICU LLE Duplex: +DVT left popliteal vein Wells Score 4 Given Lovenox 120mg SQ this evening Resume Heparin Drip 5am tomorrow PTT series CBC series Vascular consulted and aware per ICU resident, possible Thrombectomy Neurovascular checks NPO after midnight 2. s/p L- TKR Continue Ortho regimen Incentive Spirometer Monitor wound vac Monitor CBC, BMP Monitor vitals Continue fall precautions 3. Hypertension stable Monitor BP Continue home meds Monitor renal function 4. Hyperlipidemia stable no current med 5. Seizure Disorder Continue home meds Monitor Dilantin Level Seizure Precautions FEN Replete lytes prn NPO after midnight DVT ppx OOB BARB to RLE Continue Heparin Drip 06/28 Code Status: Full Code Dispo: Requires Inpatient Care Physical Examination Vital Signs: Vital Signs Temperature 99.4 F 06/27/18 17:45 Pulse Rate 105 H 06/27/18 17:45 Respiratory Rate 18 06/27/18 17:45 Blood Pressure 113/65 06/27/18 17:45 O2 Sat by Pulse Oximetry (%) 95 06/27/18 06:00 Constitutional: Yes: Well Nourished, No Distress, Calm Eyes: Yes: WNL, Conjunctiva Clear, EOM Intact, PERRL HENT: Yes: WNL, Atraumatic, Normocephalic Neck: Yes: WNL, Supple, Trachea Midline Cardiovascular: Yes: Tachycardia, S1, S2 Respiratory: Yes: WNL, Regular, CTA Bilaterally, On Nasal O2 Gastrointestinal: Yes: Normal Bowel Sounds, Soft, Abdomen, Obese ...Rectal Exam: Yes: Deferred Breast(s): Yes: WNL Musculoskeletal: Yes: Joint Swelling Extremities: Yes: Calf Tenderness, Erythema, Other (ecchymotic bruising to LLE) Edema: Yes Edema: LLE: 2+, RLE: 1+ Peripheral Pulses WNL: Yes Peripheral Pulses: Left Doralis Pedis: 2+, Right Dorsalis Pedis: 2+ Integumentary: Yes: Bruising (LLE), Erythema (LLE) Wound/Incision: Yes: Dressing Dry and Intact, Draining (Hemovac) Neurological: Yes: WNL, Alert, Oriented Psychiatric: Yes: WNL, Alert, Oriented Labs: CBC, BMP 06/27/18 16:30 06/27/18 16:43 Critical Care Total Critical Care Time (in minutes): 35 Critical Care Statement: The care of this patient involved high complexity decision making to prevent further life threatening deterioration of the patient 's condition and/or to evaluate & treat vital organ system(s) failure or risk of failure.
[2018-06-28] MEDS: ACETAMINOPHEN 325 MG TABLET (FP) PO SCH ×2 (05:36→13:00)
[2018-06-28] MEDS: HEPARIN INFUSION - 25,000 UNITS/500 ML INFUS.BAG IVPB SCH (05:37)
[2018-06-28 06:57] LABS: BASO % 0.3 % (0-2.0); EOS % 0.4 % (0-4.5); HEMATOCRIT 26.5 % (35.4-49); HEMOGLOBIN 9.1 GM/dL (11.7-16.9); MCH 30.7 pg (25.7-33.7); MCHC 34.3 g/dl (32.0-35.9); MEAN CELL VOLUME 89.4 fl (80-96); MEAN PLT VOLUME 8.9 fl (7.5-11.1); NEUT % 78.3 % (42.8-82.8); PLATELET COUNT 107 K/MM3 (134-434); RBC 2.97 M/mm3 (4.00-5.60); RDW 15.2 % (11.9-15.9); WHITE BLOOD COUNT 9.9 K/mm3 (4.0-10.0)
[2018-06-28 08:05] LABS: INR 1.27 (0.83-1.09)
[2018-06-28 08:51] LABS: ALBUMIN 2.4 g/dl (3.4-5.0); ALK PHOS 79 U/L (45-117); ANION GAP 7 MMOL/L (8-16); BILIRUBIN,TOTAL 0.6 mg/dL (0.2-1); BLOOD UREA NITROGEN 30 mg/dL (7-18); CALCIUM 7.6 mg/dL (8.5-10.1); CHLORIDE 102 mmol/L (98-107); CO2 26 mmol/L (21-32); CREATININE 1.2 mg/dL (0.55-1.3); GLUCOSE,RANDOM 123 mg/dL (74-106); MAGNESIUM 2.9 mg/dL (1.8-2.4); POTASSIUM 3.6 mmol/L (3.5-5.1); SGOT/AST 42 U/L (15-37); SGPT/ALT 28 U/L (13-61); SODIUM 135 mmol/L (136-145); TOT PROT 5.6 g/dl (6.4-8.2)
--- NOTE | 2018-06-28 08:56 | PN ---
Physical Exam: SUBJECTIVE: Patient seen this morning an reports he is doing okay. Patient is currently on the heparin drip. OBJECTIVE: Vital Signs Temperature 99.0 F 06/28/18 06:00 Pulse Rate 88 06/28/18 08:00 Respiratory Rate 23 H 06/28/18 08:00 Blood Pressure 112/92 06/28/18 08:00 O2 Sat by Pulse Oximetry (%) 98 06/27/18 21:00 GENERAL: The patient is awake, alert, and fully oriented, in no acute distress. HEAD: Normal with no signs of trauma. EYES: PERRL, extraocular movements intact, LUNGS: Breath sounds equal, clear to auscultation bilaterally, no wheezes, no crackles, no accessory muscle use. HEART: Regular rate and rhythm, S1, S2 without murmur, rub or gallop. ABDOMEN: Soft, nontender, nondistended, normoactive bowel sounds, no guarding EXTREMITIES: 2+ pulses, warm R knee swollen, tender, and warmer then left knee PSYCH: Normal mood, normal affect. SKIN: Warm, dry, normal turgor, no rashes or lesions noted CBCD WBC 9.9 K/mm3 (4.0-10.0) 06/28/18 05:30 RBC 2.97 M/mm3 (4.00-5.60) L 06/28/18 05:30 Hgb 9.1 GM/dL (11.7-16.9) L 06/28/18 05:30 Hct 26.5 % (35.4-49) L 06/28/18 05:30 MCV 89.4 fl (80-96) 06/28/18 05:30 MCHC 34.3 g/dl (32.0-35.9) 06/28/18 05:30 RDW 15.2 % (11.9-15.9) 06/28/18 05:30 Plt Count 107 K/MM3 (134-434) L 06/28/18 05:30 MPV 8.9 fl (7.5-11.1) 06/28/18 05:30 CMP Sodium 133 mmol/L (136-145) L 06/27/18 16:43 Potassium 4.2 mmol/L (3.5-5.1) 06/27/18 16:43 Chloride 102 mmol/L (98-107) 06/27/18 16:43 Carbon Dioxide 22 mmol/L (21-32) 06/27/18 16:43 Anion Gap 9 MMOL/L (8-16) 06/27/18 16:43 BUN 26 mg/dl (7-18) H 06/27/18 16:43 Creatinine 1.5 mg/dl (0.55-1.3) H 06/27/18 16:43 Creat Clearance w eGFR 46.40 (>60) 06/27/18 16:43 Calcium 8.0 mg/dl (8.5-10) L 06/27/18 16:43 Total Bilirubin 1.1 mg/dl (0.2-1) H 06/27/18 16:43 AST 39 U/L (15-37) H 06/27/18 16:43 ALT 28 U/L (13-61) 06/27/18 16:43 Alkaline Phosphatase 74 U/L (45-117) 06/27/18 16:43 Total Protein 6.0 g/dl (6.4-8.2) L 06/27/18 16:43 Albumin 2.9 g/dl (3.4-5.0) L 06/27/18 16:43 Active Medications Acetaminophen (Tylenol -) 650 mg PO Q6H [facility] Stop: 06/28/18 16:59 Last Admin: 06/28/18 05:36 Dose: 650 mg Al Hydroxide/Mg Hydroxide (Mylanta Oral Suspension -) 30 ml PO Q4H PRN PRN Reason: DYSPEPSIA Amlodipine Besylate (Norvasc -) 10 mg PO DAILY [facility] Last Admin: 06/27/18 10:25 Dose: 10 mg Chlorhexidine Gluconate (Hibiclens For Decolonization -) 1 applic TP HS [facility] Finasteride (Proscar -) 5 mg PO HS [facility] Last Admin: 06/27/18 21:34 Dose: 5 mg Heparin Sodium (Porcine) (Heparin -) 1,000 unit IVPUSH PRN PRN PRN Reason: Heparin Heparin Sodium (Porcine) (Heparin -) 5,000 unit IVPUSH PRN PRN PRN Reason: Heparin Heparin Sodium/Dextrose (Heparin Infusion -) 25,000 units in 500 mls @ 20 mls/ hr IVPB TITR [facility]; Protocol Last Admin: 06/28/18 05:37 Dose: 1,000 units/hr, 20 mls/hr Lisinopril (Prinivil) 40 mg PO DAILY [facility] Last Admin: 06/27/18 10:25 Dose: 40 mg Magnesium Hydroxide (Milk Of Magnesia -) 30 ml PO PRN PRN PRN Reason: CONSTIPATION Metoprolol Succinate (Toprol Xl -) 50 mg PO DAILY [facility] Morphine Sulfate (Morphine Sulfate) 2 mg IVPUSH Q4H PRN PRN Reason: PAIN SCALE 7-10 Multivitamins/Minerals/Vitamin C (Tab-A-Vit -) 1 tab PO DAILY [facility] Last Admin: 06/27/18 10:25 Dose: 1 tab Mupirocin (Bactroban Ointment (For Decolonization) -) 1 applic NS BID [facility] Stop: 07/02/18 21:59 Ondansetron HCl (Zofran Injection) 4 mg IVPUSH Q6H PRN PRN Reason: NAUSEA AND/OR VOMITING Pantoprazole Sodium (Protonix -) 40 mg PO DAILY [facility] Last Admin: 06/27/18 10:25 Dose: 40 mg Phenytoin Sodium (Dilantin -) 500 mg PO HS [facility] Last Admin: 06/27/18 21:34 Dose: 500 mg Senna/Docusate Sodium (Pericolace -) 1 tablet PO BID [facility] Last Admin: 06/27/18 21:34 Dose: 1 tablet Tamsulosin HCl (Flomax -) 0.4 mg PO HS [facility] Last Admin: 06/27/18 21:34 Dose: 0.4 mg ASSESSMENT/PLAN: Patient is a 67 y/o male with a history of HTN, HLD, LLE DVT ( on coumadin), seizure disorder, and L knee replacement ( 06/25) who is here for acute intrarticular hemorrhage. Neuro - A& O x3 - continue pheyntoin 500 po hs for seizure hx - head CT: moderate volume loss and ventricular dilatation, b/l supratentorial periventricular calcified densities Cardio - continue metoprolol succinate 50 daily - amlodipine 10 mg - lisinopril 40 daily - Echo: LV normak, RV not well seen, mild MR Pulm - stable - Chest CTA: no PE found GI - pt constipated - continue milk of magnesia, docusate, miralax - Chest CTA: hypodenisities in liver, spleen, and pancreas, suggests US f/u Renal - stable Heme - intrarticular bleed in L knee - 1 unit PRBC given, - hgb 9.1, stable - continue heparin drip - once stable transition to coumadin - home dose coumadin 4mg and 5 mg every other day - morphine 2mg q4 hr prn pain - L knee replacement with Dr. Langston - f/u Dr. Evans for possible thrombectomy - continue finasteride 5 mg po hs - continue tamsulosin 0.4 mg hs FEN - regular diet - f/u with PT Dispo: f /u CBC @ 4, if normal can transfer to tele Visit type - Emergency Visit Emergency Visit: No - New Patient This patient is new to me today: No - Critical Care Critical Care patient: Yes Total Critical Care Time (in minutes): 35 Critical Care Statement: The care of this patient involved high complexity decision making to prevent further life threatening deterioration of the patient 's condition and/or to evaluate & treat vital organ system(s) failure or risk of failure.
[2018-06-28] MEDS ORDERED: PT OWN MED DRAWER 7, Y5N ONE (09:13)
[2018-06-28] MEDS: SENNOSIDES/DOCUSATE COMBO (SENNA PLUS) TABLET (UD) PO SCH (09:15)
[2018-06-28] MEDS: MULTIVITAMINS (DAILY MVI) TABLET (FP) PO SCH (09:16)
[2018-06-28] MEDS: LISINOPRIL 20 MG TABLET (FP) PO SCH (09:16)
[2018-06-28] MEDS: PANTOPRAZOLE 40 MG TABLET (FP) PO SCH (09:16)
[2018-06-28] MEDS: amLODIPine BESYLATE 10 MG TABLET (FP) PO SCH (09:16)
[2018-06-28] MEDS: MUPIROCIN 2% TOPICAL OINTMENT FOR DECOLONIZATION NS SCH (09:17)
[2018-06-28] MEDS: POLYETHYLENE GLYCOL 3350 119 GM BTL PO SCH (09:20)
[2018-06-28] MEDS: HEPARIN NA (PORCINE) 5,000 UNITS/ML 1ML VIAL IVPUSH PRN (10:07)
--- NOTE | 2018-06-28 10:58 | PN ---
Teaching Attending Note Name of Resident: Janet Chance ATTENDING PHYSICIAN STATEMENT I saw and evaluated the patient. I reviewed the resident's note and discussed the case with the resident. I agree with the resident's findings and plan as documented. SUBJECTIVE: Pt seen and examined in the ICU. Remains on heparin gtt, last H/H stable. Denies shortness of breath or chest pain. OBJECTIVE: Vital Signs Period Temp Pulse Resp BP Sys/Gee Pulse Ox Last 24 Hr 98.3 F-99.5 F 76-112 14-23 97-123/46-92 98-98 Intake & Output 06/25/18 06/26/18 06/27/18 06/28/18 23:59 23:59 23:59 23:59 Intake Total 2300 1355 490 Output Total 940 930 210 300 Balance 1360 425 280 -300 Weight 121.835 kg 124.5 kg 124.5 kg Gen: NAD at rest Heart: RRR Lung: decreased breath sounds at the bases Abd: soft, nontender Ext: LLE ecchymoses CBC, BMP 06/28/18 05:30 06/28/18 05:30 Active Medications Acetaminophen (Tylenol -) 650 mg PO Q6H [facility] Stop: 06/28/18 16:59 Last Admin: 06/28/18 05:36 Dose: 650 mg Al Hydroxide/Mg Hydroxide (Mylanta Oral Suspension -) 30 ml PO Q4H PRN PRN Reason: DYSPEPSIA Amlodipine Besylate (Norvasc -) 10 mg PO DAILY [facility] Last Admin: 06/28/18 09:16 Dose: 10 mg Chlorhexidine Gluconate (Hibiclens For Decolonization -) 1 applic TP HS [facility] Finasteride (Proscar -) 5 mg PO HS [facility] Last Admin: 06/27/18 21:34 Dose: 5 mg Heparin Sodium (Porcine) (Heparin -) 1,000 unit IVPUSH PRN PRN PRN Reason: Heparin Heparin Sodium (Porcine) (Heparin -) 5,000 unit IVPUSH PRN PRN PRN Reason: Heparin Last Admin: 06/28/18 10:07 Dose: 5,000 unit Heparin Sodium/Dextrose (Heparin Infusion -) 25,000 units in 500 mls @ 20 mls/ hr IVPB TITR [facility]; Protocol Last Titration: 06/28/18 10:03 Dose: 1,150 units/hr, 23 mls/hr Lisinopril (Prinivil) 40 mg PO DAILY [facility] Last Admin: 06/28/18 09:16 Dose: 40 mg Magnesium Hydroxide (Milk Of Magnesia -) 30 ml PO PRN PRN PRN Reason: CONSTIPATION Metoprolol Succinate (Toprol Xl -) 50 mg PO DAILY [facility] Last Admin: 06/28/18 10:08 Dose: 50 mg Morphine Sulfate (Morphine Sulfate) 2 mg IVPUSH Q4H PRN PRN Reason: PAIN SCALE 7-10 Multivitamins/Minerals/Vitamin C (Tab-A-Vit -) 1 tab PO DAILY [facility] Last Admin: 06/28/18 09:16 Dose: 1 tab Mupirocin (Bactroban Ointment (For Decolonization) -) 1 applic NS BID [facility] Stop: 07/02/18 21:59 Last Admin: 06/28/18 09:17 Dose: 1 applic Ondansetron HCl (Zofran Injection) 4 mg IVPUSH Q6H PRN PRN Reason: NAUSEA AND/OR VOMITING Pantoprazole Sodium (Protonix -) 40 mg PO DAILY [facility] Last Admin: 06/28/18 09:16 Dose: 40 mg Phenytoin Sodium (Dilantin -) 500 mg PO [facility] Last Admin: 06/27/18 21:34 Dose: 500 mg Polyethylene Glycol (Miralax (For Daily Use) -) 17 gm PO DAILY [facility] Last Admin: 06/28/18 09:20 Dose: 17 gm Senna/Docusate Sodium (Pericolace -) 1 tablet PO BID [facility] Last Admin: 06/28/18 09:15 Dose: 1 tablet Tamsulosin HCl (Flomax -) 0.4 mg PO HS [facility] Last Admin: 06/27/18 21:34 Dose: 0.4 mg ASSESSMENT AND PLAN: s/p L TKR Acute Blood Loss Anemia HTN Hyperlipidemia remote h/o R DVT - continue anticoagulation - monitor H/H - pain control - can monitor on telemetry if next H/H stable
[2018-06-28 11:25] LABS: HEMATOCRIT 25.6 % (35.4-49); HEMOGLOBIN 8.7 GM/dL (11.7-16.9); MCH 30.9 pg (25.7-33.7); MCHC 33.8 g/dl (32.0-35.9); MEAN CELL VOLUME 91.3 fl (80-96); MEAN PLT VOLUME 9.3 fl (7.5-11.1); PLATELET COUNT 101 K/MM3 (134-434); WHITE BLOOD COUNT 9.6 K/mm3 (4.0-10.0)
--- NOTE | 2018-06-28 11:28 | PN ---
Progress Note, Physician Chief Complaint: tachycardia History of Present Illness: denies palpit, cp, sob, syncope - Current Medication List Current Medications: Active Medications Acetaminophen (Tylenol -) 650 mg PO Q6H [facility] Stop: 06/28/18 16:59 Last Admin: 06/28/18 05:36 Dose: 650 mg Al Hydroxide/Mg Hydroxide (Mylanta Oral Suspension -) 30 ml PO Q4H PRN PRN Reason: DYSPEPSIA Amlodipine Besylate (Norvasc -) 10 mg PO DAILY [facility] Last Admin: 06/28/18 09:16 Dose: 10 mg Chlorhexidine Gluconate (Hibiclens For Decolonization -) 1 applic TP HS [facility] Finasteride (Proscar -) 5 mg PO HS [facility] Last Admin: 06/27/18 21:34 Dose: 5 mg Heparin Sodium (Porcine) (Heparin -) 1,000 unit IVPUSH PRN PRN PRN Reason: Heparin Heparin Sodium (Porcine) (Heparin -) 5,000 unit IVPUSH PRN PRN PRN Reason: Heparin Last Admin: 06/28/18 10:07 Dose: 5,000 unit Heparin Sodium/Dextrose (Heparin Infusion -) 25,000 units in 500 mls @ 20 mls/ hr IVPB TITR [facility]; Protocol Last Titration: 06/28/18 10:03 Dose: 1,150 units/hr, 23 mls/hr Lisinopril (Prinivil) 40 mg PO DAILY [facility] Last Admin: 06/28/18 09:16 Dose: 40 mg Magnesium Hydroxide (Milk Of Magnesia -) 30 ml PO PRN PRN PRN Reason: CONSTIPATION Metoprolol Succinate (Toprol Xl -) 50 mg PO DAILY [facility] Last Admin: 06/28/18 10:08 Dose: 50 mg Morphine Sulfate (Morphine Sulfate) 2 mg IVPUSH Q4H PRN PRN Reason: PAIN SCALE 7-10 Multivitamins/Minerals/Vitamin C (Tab-A-Vit -) 1 tab PO DAILY [facility] Last Admin: 06/28/18 09:16 Dose: 1 tab Mupirocin (Bactroban Ointment (For Decolonization) -) 1 applic NS BID [facility] Stop: 07/02/18 21:59 Last Admin: 06/28/18 09:17 Dose: 1 applic Ondansetron HCl (Zofran Injection) 4 mg IVPUSH Q6H PRN PRN Reason: NAUSEA AND/OR VOMITING Pantoprazole Sodium (Protonix -) 40 mg PO DAILY [facility] Last Admin: 06/28/18 09:16 Dose: 40 mg Phenytoin Sodium (Dilantin -) 500 mg PO [facility] Last Admin: 06/27/18 21:34 Dose: 500 mg Polyethylene Glycol (Miralax (For Daily Use) -) 17 gm PO DAILY [facility] Last Admin: 06/28/18 09:20 Dose: 17 gm Senna/Docusate Sodium (Pericolace -) 1 tablet PO BID [facility] Last Admin: 06/28/18 09:15 Dose: 1 tablet Tamsulosin HCl (Flomax -) 0.4 mg PO [facility] Last Admin: 06/27/18 21:34 Dose: 0.4 mg - Objective Vital Signs: Vital Signs Temperature 99.0 F 06/28/18 06:00 Pulse Rate 112 H 06/28/18 10:00 Respiratory Rate 22 H 06/28/18 10:00 Blood Pressure 97/58 L 06/28/18 10:00 O2 Sat by Pulse Oximetry (%) 98 06/28/18 08:41 Constitutional: Yes: Well Nourished, No Distress, Calm Cardiovascular: Yes: Regular Rate and Rhythm, S1, S2. No: Gallop, Murmur Respiratory: Yes: Regular, CTA Bilaterally. No: Accessory Muscle Use, Rales Extremities: No: Cold Edema: No Neurological: Yes: Alert, Oriented Psychiatric: No: Agitated Labs: CBC, BMP 06/28/18 05:30 INR, PTT INR 1.27 (0.83-1.09) H 06/28/18 05:30 Assessment/Plan Echo 07/04: nl LV/EF. RV tds. valves not well visualized, no signif pathology seen EKG: sinus tachycardia, delayed R wave progression, no ischemic changes tele: sinus tach 110s, NSVT x6b 67M h/o HTN, HLD, h/o DVT p/w tachycardia after total knee replacement tachycardia - no central PE on CTA - HRs likely sec to anemia--improved s/p PRBCs h/o VTEs, on group home warfarin: - subtherapeutic lovenox dose given preop as bridging - L pop vein DVT here on sonogram--per d/w [employer] [facility], she d/w'd ortho yest who rec 'd resume AC ([facility] ggt)--d/w'd ICU resident - H/H stable--cont monitoring VTach: - NSVT on tele - K ok--replete. Mag fine - EF normal. - cont tele HTN - on toprol, lisinopril, amlodipine - BPs soft--decr amlodipine to 5 s/p L TKR - manage per ortho
[2018-06-28] MEDS ORDERED: POTASSIUM CHLORIDE ORAL LIQUID 20 MEQ/15 ML PO ONE (12:00)
[2018-06-28 17:24] LABS: HEMATOCRIT 25.7 % (35.4-49); HEMOGLOBIN 8.7 GM/dL (11.7-16.9); MCH 30.6 pg (25.7-33.7); MCHC 33.8 g/dl (32.0-35.9); MEAN CELL VOLUME 90.5 fl (80-96); MEAN PLT VOLUME 9.2 fl (7.5-11.1); PLATELET COUNT 119 K/MM3 (134-434); RBC 2.84 M/mm3 (4.00-5.60); RDW 14.9 % (11.9-15.9); WHITE BLOOD COUNT 9.3 K/mm3 (4.0-10.0)
--- NOTE | 2018-06-28 21:43 | PN ---
Progress Note (short form) - Note Progress Note: POD#3 At [facility] for management of L LE DVT No respiratory abnormalities No hemoptysis HT and rest of vitals as per chart. LE C/O mild incisional pain Moderate swelling Not tense Pulse strongly palpable No signs of compartment syndrome Mild calf tenderness No subsartorian tenderness. Neuro Fully intact motor and sensory. PLAN Continue full anticoagulation PT to start Saturday once fully anticoagulated
[2018-06-29] MEDS: TAMSULOSIN HCL 0.4 MG CAP PO SCH ×2 (00:20→21:58)
[2018-06-29] MEDS: FINASTERIDE 5 MG TABLET (FP) PO SCH ×2 (00:20→21:59)
[2018-06-29] MEDS: SENNOSIDES/DOCUSATE COMBO (SENNA PLUS) TABLET (UD) PO SCH ×3 (00:21→21:59)
[2018-06-29] MEDS: PHENYTOIN NA EXTENDED 100 MG CAPSULE (FP) PO SCH (00:21)
[2018-06-29] MEDS: CHLORHEXIDINE GLUCONATE 4% CLEANSER FOR DECOLONIZATION TP SCH ×3 (00:22→21:58)
[2018-06-29] MEDS: MUPIROCIN 2% TOPICAL OINTMENT FOR DECOLONIZATION NS SCH ×4 (00:22→21:58)
[2018-06-29 05:39] LABS: HEMATOCRIT 23.1 % (35.4-49); MCH 31.1 pg (25.7-33.7); MCHC 34.6 g/dl (32.0-35.9); MEAN CELL VOLUME 89.7 fl (80-96); MEAN PLT VOLUME 9.1 fl (7.5-11.1); PLATELET COUNT 137 K/MM3 (134-434); RBC 2.58 M/mm3 (4.00-5.60); RDW 14.9 % (11.9-15.9); WHITE BLOOD COUNT 8.6 K/mm3 (4.0-10.0)
[2018-06-29] MEDS: HEPARIN INFUSION - 25,000 UNITS/500 ML INFUS.BAG IVPB SCH (05:56)
[2018-06-29 06:12] LABS: ALBUMIN 2.3 g/dl (3.4-5.0); ALK PHOS 87 U/L (45-117); ANION GAP 7 MMOL/L (8-16); BILIRUBIN,TOTAL 0.7 mg/dL (0.2-1); BLOOD UREA NITROGEN 37 mg/dL (7-18); CALCIUM 7.5 mg/dL (8.5-10.1); CHLORIDE 104 mmol/L (98-107); CO2 25 mmol/L (21-32); CREATININE 1.3 mg/dL (0.55-1.3); GLUCOSE,RANDOM 133 mg/dL (74-106); MAGNESIUM 2.9 mg/dL (1.8-2.4); PHOSPHOROUS 2.9 mg/dL (2.5-4.9); POTASSIUM 3.6 mmol/L (3.5-5.1); SGOT/AST 52 U/L (15-37); SGPT/ALT 29 U/L (13-61); SODIUM 136 mmol/L (136-145); TOT PROT 5.6 g/dl (6.4-8.2)
[2018-06-29] MEDS ORDERED: PT OWN MED DRAWER 7, Y5N ONE (09:17)
[2018-06-29] MEDS: HEPARIN NA (PORCINE) 5,000 UNITS/ML 1ML VIAL IVPUSH PRN (09:24)
[2018-06-29] MEDS: POLYETHYLENE GLYCOL 3350 119 GM BTL PO SCH (09:25)
[2018-06-29] MEDS: amLODIPine BESYLATE 5 MG TABLET (FP) PO SCH (09:26)
[2018-06-29] MEDS: MULTIVITAMINS (DAILY MVI) TABLET (FP) PO SCH (09:26)
[2018-06-29] MEDS: LISINOPRIL 20 MG TABLET (FP) PO SCH (09:26)
[2018-06-29] MEDS: PANTOPRAZOLE 40 MG TABLET (FP) PO SCH (09:26)
--- NOTE | 2018-06-29 09:36 | PN ---
Teaching Attending Note Name of Resident: Guzman Trevino ATTENDING PHYSICIAN STATEMENT I saw and evaluated the patient. I reviewed the resident's note and discussed the case with the resident. I agree with the resident's findings and plan as documented. SUBJECTIVE: Pt seen and examined in the ICU. Intermittently confused overnight. Denies shortness of breath or chest pain. Low grade fever this AM. OBJECTIVE: Vital Signs Period Temp Pulse Resp BP Sys/Gee Pulse Ox Last 24 Hr 99.2 F-100.6 F 62-114 16-26 97-144/52-78 97-98 Intake & Output 06/26/18 06/27/18 06/28/18 06/29/18 23:59 23:59 23:59 23:59 Intake Total 1355 490 242 Output Total 930 210 300 Balance 425 280 -300 242 Weight 124.5 kg 124.284 kg 125.5 kg Gen: NAD at rest Heart: tachycardic, regular Lung: decreased breath sounds at the bases Abd: soft, nontender Ext: LLE edema, dependent ecchymoses CBC, BMP 06/29/18 05:30 06/29/18 05:30 Active Medications Al Hydroxide/Mg Hydroxide (Mylanta Oral Suspension -) 30 ml PO Q4H PRN PRN Reason: DYSPEPSIA Amlodipine Besylate (Norvasc -) 5 mg PO DAILY [facility] Last Admin: 06/29/18 09:26 Dose: 5 mg Chlorhexidine Gluconate (Hibiclens For Decolonization -) 1 applic TP HS [facility] Last Admin: 06/29/18 00:23 Dose: 1 applic Finasteride (Proscar -) 5 mg PO HS [facility] Last Admin: 06/29/18 00:20 Dose: 5 mg Heparin Sodium (Porcine) (Heparin -) 1,000 unit IVPUSH PRN PRN PRN Reason: Heparin Last Admin: 06/28/18 18:05 Dose: 1,000 unit Heparin Sodium (Porcine) (Heparin -) 5,000 unit IVPUSH PRN PRN PRN Reason: Heparin Last Admin: 06/29/18 09:24 Dose: 5,000 unit Heparin Sodium/Dextrose (Heparin Infusion -) 25,000 units in 500 mls @ 20 mls/ hr IVPB TITR [facility]; Protocol Last Titration: 06/29/18 09:02 Dose: 1,550 units/hr, 31 mls/hr Lisinopril (Prinivil) 40 mg PO DAILY [facility] Last Admin: 06/29/18 09:26 Dose: 40 mg Magnesium Hydroxide (Milk Of Magnesia -) 30 ml PO PRN PRN PRN Reason: CONSTIPATION Metoprolol Succinate (Toprol Xl -) 50 mg PO DAILY [facility] Last Admin: 06/29/18 09:27 Dose: 50 mg Morphine Sulfate (Morphine Sulfate) 2 mg IVPUSH Q4H PRN PRN Reason: PAIN SCALE 7-10 Multivitamins/Minerals/Vitamin C (Tab-A-Vit -) 1 tab PO DAILY [facility] Last Admin: 06/29/18 09:26 Dose: 1 tab Mupirocin (Bactroban Ointment (For Decolonization) -) 1 applic NS BID [facility] Stop: 07/02/18 21:59 Last Admin: 06/29/18 09:28 Dose: 1 applic Ondansetron HCl (Zofran Injection) 4 mg IVPUSH Q6H PRN PRN Reason: NAUSEA AND/OR VOMITING Pantoprazole Sodium (Protonix -) 40 mg PO DAILY [facility] Last Admin: 06/29/18 09:26 Dose: 40 mg Phenytoin Sodium (Dilantin -) 500 mg PO [facility] Last Admin: 06/29/18 00:21 Dose: 500 mg Polyethylene Glycol (Miralax (For Daily Use) -) 17 gm PO DAILY [facility] Last Admin: 06/29/18 09:25 Dose: 17 gm Senna/Docusate Sodium (Pericolace -) 1 tablet PO BID [facility] Last Admin: 06/29/18 09:26 Dose: 1 tablet Tamsulosin HCl (Flomax -) 0.4 mg PO [facility] Last Admin: 06/29/18 00:20 Dose: 0.4 mg ASSESSMENT AND PLAN: s/p L TKR Acute LLE DVT Acute Blood Loss Anemia HTN Hyperlipidemia remote h/o R DVT - continue anticoagulation - monitor H/H - transfuse as needed - pain control - can monitor on telemetry
--- NOTE | 2018-06-29 11:10 | PN ---
Progress Note, Physician History of Present Illness: Seen and examined at bedside. No acute event overnight. Looks somewhat tired and lethargic. - Current Medication List Current Medications: Active Medications Al Hydroxide/Mg Hydroxide (Mylanta Oral Suspension -) 30 ml PO Q4H PRN PRN Reason: DYSPEPSIA Amlodipine Besylate (Norvasc -) 5 mg PO DAILY [facility] Last Admin: 06/29/18 09:26 Dose: 5 mg Chlorhexidine Gluconate (Hibiclens For Decolonization -) 1 applic TP HS [facility] Last Admin: 06/29/18 00:23 Dose: 1 applic Finasteride (Proscar -) 5 mg PO HS [facility] Last Admin: 06/29/18 00:20 Dose: 5 mg Heparin Sodium (Porcine) (Heparin -) 1,000 unit IVPUSH PRN PRN PRN Reason: Heparin Last Admin: 06/28/18 18:05 Dose: 1,000 unit Heparin Sodium (Porcine) (Heparin -) 5,000 unit IVPUSH PRN PRN PRN Reason: Heparin Last Admin: 06/29/18 09:24 Dose: 5,000 unit Heparin Sodium/Dextrose (Heparin Infusion -) 25,000 units in 500 mls @ 20 mls/ hr IVPB TITR [facility]; Protocol Last Titration: 06/29/18 09:02 Dose: 1,550 units/hr, 31 mls/hr Lisinopril (Prinivil) 40 mg PO DAILY [facility] Last Admin: 06/29/18 09:26 Dose: 40 mg Magnesium Hydroxide (Milk Of Magnesia -) 30 ml PO PRN PRN PRN Reason: CONSTIPATION Metoprolol Succinate (Toprol Xl -) 50 mg PO DAILY [facility] Last Admin: 06/29/18 09:27 Dose: 50 mg Morphine Sulfate (Morphine Sulfate) 2 mg IVPUSH Q4H PRN PRN Reason: PAIN SCALE 7-10 Multivitamins/Minerals/Vitamin C (Tab-A-Vit -) 1 tab PO DAILY [facility] Last Admin: 06/29/18 09:26 Dose: 1 tab Mupirocin (Bactroban Ointment (For Decolonization) -) 1 applic NS BID [facility] Stop: 07/02/18 21:59 Last Admin: 06/29/18 09:28 Dose: 1 applic Ondansetron HCl (Zofran Injection) 4 mg IVPUSH Q6H PRN PRN Reason: NAUSEA AND/OR VOMITING Pantoprazole Sodium (Protonix -) 40 mg PO DAILY [facility] Last Admin: 06/29/18 09:26 Dose: 40 mg Phenytoin Sodium (Dilantin -) 500 mg PO [facility] Last Admin: 06/29/18 00:21 Dose: 500 mg Polyethylene Glycol (Miralax (For Daily Use) -) 17 gm PO DAILY [facility] Last Admin: 06/29/18 09:25 Dose: 17 gm Senna/Docusate Sodium (Pericolace -) 1 tablet PO BID [facility] Last Admin: 06/29/18 09:26 Dose: 1 tablet Tamsulosin HCl (Flomax -) 0.4 mg PO [facility] Last Admin: 06/29/18 00:20 Dose: 0.4 mg - Objective Vital Signs: Vital Signs Temperature 100.6 F H 06/29/18 08:00 Pulse Rate 118 H 06/29/18 09:40 Respiratory Rate 27 H 06/29/18 09:40 Blood Pressure 113/64 06/29/18 09:40 O2 Sat by Pulse Oximetry (%) 98 06/29/18 08:00 Constitutional: Yes: No Distress, Obese Cardiovascular: Yes: Tachycardia, S1, S2. No: Murmur Respiratory: Yes: Other (decreased breath sounds b/l) Gastrointestinal: Yes: Normal Bowel Sounds, Soft, Abdomen, Obese Extremities: Yes: Deformity Edema: Yes Wound/Incision: Yes: Dressing Dry and Intact Neurological: Yes: Alert, Oriented Labs: CBC, BMP 06/29/18 05:30 06/29/18 05:30 INR, PTT INR 1.27 (0.83-1.09) H 06/28/18 05:30 Impression/Plan Impression/Plan: 67 yo AA M h/o HTN, HLD, LLE DVT on coumadin, seizure disorder, b/l knee replacement (R knee replacement on 06/25) transferred from [facility] for acute intra- articular hemorrhage. Vascular: h/o DVT, intra-articular hemorrhage - c/w heparin gtt to achieve therapeutic PTT - s/p 1 PRBC - cont. to monitor CBC MSK: s/p L knee replacement POD #4 - Pain control - Cont. bowel regimen - Incentive spirometry CV: HTN, HLD - cont. lisinopril, metoprolol and lotrel - Cardiology on broad Neuro: seizure disorder - Cont. dilantin : ?BPH - Cont. finasteride and flomax Dispo: tele transfer Guzman Trevino [id number] Visit type - Emergency Visit Emergency Visit: No - New Patient This patient is new to me today: No - Critical Care Critical Care patient: Yes Total Critical Care Time (in minutes): 35 Critical Care Statement: The care of this patient involved high complexity decision making to prevent further life threatening deterioration of the patient 's condition and/or to evaluate & treat vital organ system(s) failure or risk of failure.
--- NOTE | 2018-06-29 14:12 | PN ---
Progress Note, Physician History of Present Illness: No CV issues Tele: no NSVT - Current Medication List Current Medications: Active Medications Al Hydroxide/Mg Hydroxide (Mylanta Oral Suspension -) 30 ml PO Q4H PRN PRN Reason: DYSPEPSIA Amlodipine Besylate (Norvasc -) 5 mg PO DAILY [facility] Last Admin: 06/29/18 09:26 Dose: 5 mg Chlorhexidine Gluconate (Hibiclens For Decolonization -) 1 applic TP HS [facility] Last Admin: 06/29/18 00:23 Dose: 1 applic Enoxaparin Sodium (Lovenox -) 120 mg SQ BID [facility] Finasteride (Proscar -) 5 mg PO HS [facility] Last Admin: 06/29/18 00:20 Dose: 5 mg Lisinopril (Prinivil) 40 mg PO DAILY [facility] Last Admin: 06/29/18 09:26 Dose: 40 mg Magnesium Hydroxide (Milk Of Magnesia -) 30 ml PO PRN PRN PRN Reason: CONSTIPATION Metoprolol Succinate (Toprol Xl -) 50 mg PO DAILY [facility] Last Admin: 06/29/18 09:27 Dose: 50 mg Morphine Sulfate (Morphine Sulfate) 2 mg IVPUSH Q4H PRN PRN Reason: PAIN SCALE 7-10 Multivitamins/Minerals/Vitamin C (Tab-A-Vit -) 1 tab PO DAILY [facility] Last Admin: 06/29/18 09:26 Dose: 1 tab Mupirocin (Bactroban Ointment (For Decolonization) -) 1 applic NS BID [facility] Stop: 07/02/18 21:59 Last Admin: 06/29/18 09:28 Dose: 1 applic Ondansetron HCl (Zofran Injection) 4 mg IVPUSH Q6H PRN PRN Reason: NAUSEA AND/OR VOMITING Pantoprazole Sodium (Protonix -) 40 mg PO DAILY [facility] Last Admin: 06/29/18 09:26 Dose: 40 mg Phenytoin Sodium (Dilantin -) 500 mg PO HS [facility] Last Admin: 06/29/18 00:21 Dose: 500 mg Polyethylene Glycol (Miralax (For Daily Use) -) 17 gm PO DAILY [facility] Last Admin: 06/29/18 09:25 Dose: 17 gm Senna/Docusate Sodium (Pericolace -) 1 tablet PO BID [facility] Last Admin: 06/29/18 09:26 Dose: 1 tablet Tamsulosin HCl (Flomax -) 0.4 mg PO HS [facility] Last Admin: 06/29/18 00:20 Dose: 0.4 mg - Objective Vital Signs: Vital Signs Temperature 100.6 F H 06/29/18 08:00 Pulse Rate 110 H 06/29/18 12:00 Respiratory Rate 21 H 06/29/18 12:00 Blood Pressure 111/66 06/29/18 12:00 O2 Sat by Pulse Oximetry (%) 98 06/29/18 08:00 Constitutional: Yes: No Distress Eyes: Yes: WNL HENT: Yes: WNL Neck: Yes: WNL Cardiovascular: Yes: Regular Rate and Rhythm, Tachycardia Respiratory: Yes: CTA Bilaterally Gastrointestinal: Yes: Normal Bowel Sounds Musculoskeletal: Yes: Other (Left leg dressing intact) Edema: No Labs: CBC, BMP 06/29/18 05:30 06/29/18 05:30 INR, PTT INR 1.27 (0.83-1.09) H 06/28/18 05:30 Assessment/Plan 67M h/o HTN, HLD, h/o DVT p/w tachycardia after total knee replacement tachycardia - no central PE on CTA - HRs likely sec to anemia--improved s/p PRBCs h/o VTEs, on intermediate warfarin: - subtherapeutic lovenox dose given preop as bridging - L pop vein DVT here on sonogram- prior note by Dr. Avendano suggested UFH gtt, but this was d/cd and now on Enoxaparin 120mg Q12h. - H/H stable--cont monitoring VTach: - stable overnight - Keep K>4 and Mg >2 - EF normal. - cont tele HTN - on toprol, lisinopril, amlodipine - BPs soft--decr amlodipine to 5 s/p L TKR - manage per ortho
--- NOTE | 2018-06-29 14:43 | PN ---
Physical Exam: SUBJECTIVE: Patient seen and examined. He has no distress at this time. Per ICU team family has reported that he is a bit more lethargic OBJECTIVE: Vital Signs Period Temp Pulse Resp BP Sys/Gee Pulse Ox Last 24 Hr 99.2 F-100.6 F 62-118 16-27 107-144/57-78 97-98 he is awake , A&OX3, In no distress CVS:S1S2 CTAB L knee has dressing with the wound vac there. Laboratory Results - last 24 hr 06/25/18 06/28/18 06/28/18 22:00 16:55 16:55 WBC 9.3 RBC 2.84 L Hgb 8.7 L Hct 25.7 L MCV 90.5 MCH 30.6 MCHC 33.8 RDW 14.9 Plt Count 119 L MPV 9.2 PTT (Actin FS) 47.5 H Sodium Potassium Chloride Carbon Dioxide Anion Gap BUN Creatinine Creat Clearance w eGFR Random Glucose Calcium Phosphorus Magnesium Total Bilirubin AST ALT Alkaline Phosphatase Total Protein Albumin Crossmatch See Detail 06/29/18 06/29/18 06/29/18 00:45 05:30 05:30 WBC 8.6 RBC 2.58 L Hgb 8.0 L Hct 23.1 L MCV 89.7 MCH 31.1 MCHC 34.6 RDW 14.9 Plt Count 137 MPV 9.1 PTT (Actin FS) 35.5 25.6 Sodium Potassium Chloride Carbon Dioxide Anion Gap BUN Creatinine Creat Clearance w eGFR Random Glucose Calcium Phosphorus Magnesium Total Bilirubin AST ALT Alkaline Phosphatase Total Protein Albumin Crossmatch 06/29/18 05:30 WBC RBC Hgb Hct MCV MCH MCHC RDW Plt Count MPV PTT (Actin FS) Sodium 136 Potassium 3.6 Chloride 104 Carbon Dioxide 25 Anion Gap 7 L BUN 37 H Creatinine 1.3 Creat Clearance w eGFR 54.73 Random Glucose 133 H Calcium 7.5 L Phosphorus 2.9 Magnesium 2.9 H Total Bilirubin 0.7 AST 52 H ALT 29 Alkaline Phosphatase 87 Total Protein 5.6 L Albumin 2.3 L Crossmatch Active Medications Generic Name Dose Route Start Last Admin Trade Name Freq PRN Reason Stop Dose Admin Al Hydroxide/Mg Hydroxide 30 ml 06/25/18 14:49 Mylanta Oral Suspension - PO Q4H PRN DYSPEPSIA Amlodipine Besylate 5 mg 06/28/18 11:30 06/29/18 09:26 Norvasc - PO 5 mg DAILY [facility] Administration Chlorhexidine Gluconate 1 applic 06/27/18 22:00 06/29/18 00:23 Hibiclens For Decolonization - TP 1 applic HS [facility] Administration Enoxaparin Sodium 120 mg 06/29/18 13:00 Lovenox - SQ BID [facility] Finasteride 5 mg 06/25/18 22:00 06/29/18 00:20 Proscar - PO 5 mg HS [facility] Administration Lisinopril 40 mg 06/26/18 10:00 06/29/18 09:26 Prinivil PO 40 mg DAILY [facility] Administration Magnesium Hydroxide 30 ml 06/25/18 14:49 Milk Of Magnesia - PO PRN PRN CONSTIPATION Metoprolol Succinate 50 mg 06/28/18 10:00 06/29/18 09:27 Toprol Xl - PO 50 mg DAILY [facility] Administration Morphine Sulfate 2 mg 06/27/18 19:07 Morphine Sulfate IVPUSH Q4H PRN PAIN SCALE 7-10 Multivitamins/Minerals/Vitamin C 1 tab 06/26/18 10:00 06/29/18 09:26 Tab-A-Vit - PO 1 tab DAILY [facility] Administration Mupirocin 1 applic 06/27/18 22:00 06/29/18 09:28 Bactroban Ointment (For Decolonization) - NS 07/02/18 21:59 1 applic BID [facility] Administration Ondansetron HCl 4 mg 06/25/18 16:34 Zofran Injection IVPUSH Q6H PRN NAUSEA AND/OR VOMITING Pantoprazole Sodium 40 mg 06/26/18 10:00 06/29/18 09:26 Protonix - PO 40 mg DAILY [facility] Administration Phenytoin Sodium 500 mg 06/25/18 22:00 06/29/18 00:21 Dilantin - PO 500 mg HS [facility] Administration Polyethylene Glycol 17 gm 06/28/18 10:00 06/29/18 09:25 Miralax (For Daily Use) - PO 17 gm DAILY [facility] Administration Senna/Docusate Sodium 1 tablet 06/25/18 22:00 06/29/18 09:26 Pericolace - PO 1 tablet BID [facility] Administration Tamsulosin HCl 0.4 mg 06/25/18 22:00 06/29/18 00:20 Flomax - PO 0.4 mg HS [facility] Administration ASSESSMENT/PLAN: 67 yo AA M W HTN, HLD, LLE DVT on coumadin, seizure disorder, b/l knee replacement (R knee replacement on 06/25) transferred from [facility] for acute intra- articular hemorrhage after a mechanical fall. being more lethargic: he has not received any opioids, has fever with no leukocytosis which makes new infection less likely but still will huerta culture him the joint dose not look infected at this time. ABG was sent by the ICU team, pending results. Fevere: will panculture the patient. no need for initiation of antibiotics at this time. MSK: s/p L knee replacement - Pain control - Cont. bowel regimen - Incentive spirometry Vascular: h/o DVT, intra-articular hemorrhage - c/w heparin gtt to achieve therapeutic PTT - s/p 1 PRBC, cbc is stable at this time HTN, HLD:C/W lisinopril, metoprolol and lotrel, Cardiology on broad seizure disorder : CW/dilantin : ?BPH - Cont. finasteride and flomax Dispo: most likely can be transferred to regular medicine floor Visit type - Emergency Visit Emergency Visit: Yes ED Registration Date: 06/25/18 Care time: The patient presented to the Emergency Department on the above date and was hospitalized for further evaluation of their emergent condition. - New Patient This patient is new to me today: No - Critical Care Critical Care patient: No - Discharge Referral Referred to [facility] Med P.C.: No
[2018-06-29] MEDS: ENOXAPARIN NA (PORCINE) 120 MG/0.8 ML DISP.SYRIN SQ SCH ×2 (14:54→21:58)
--- NOTE | 2018-06-29 15:01 | PN ---
Physical Exam: SUBJECTIVE: Patient seen and examined OBJECTIVE: Vital Signs Period Temp Pulse Resp BP Sys/Gee Pulse Ox Last 24 Hr 99.2 F-100.6 F 62-118 16-27 107-144/57-78 97-98 She is in no distress at this time. CVS:S1S2 CTAB Abd:bs+ ntnd EXT: has dressing and wound vac on the R knee Labs: reviewed Active Medications Generic Name Dose Route Start Last Admin Trade Name Freq PRN Reason Stop Dose Admin Al Hydroxide/Mg Hydroxide 30 ml 06/25/18 14:49 Mylanta Oral Suspension - PO Q4H PRN DYSPEPSIA Amlodipine Besylate 5 mg 06/28/18 11:30 06/29/18 09:26 Norvasc - PO 5 mg DAILY [facility] Administration Chlorhexidine Gluconate 1 applic 06/27/18 22:00 06/29/18 00:23 Hibiclens For Decolonization - TP 1 applic HS [facility] Administration Enoxaparin Sodium 120 mg 06/29/18 13:00 06/29/18 14:54 Lovenox - SQ 120 mg BID [facility] Administration Finasteride 5 mg 06/25/18 22:00 06/29/18 00:20 Proscar - PO 5 mg HS [facility] Administration Lisinopril 40 mg 06/26/18 10:00 06/29/18 09:26 Prinivil PO 40 mg DAILY [facility] Administration Magnesium Hydroxide 30 ml 06/25/18 14:49 Milk Of Magnesia - PO PRN PRN CONSTIPATION Metoprolol Succinate 50 mg 06/28/18 10:00 06/29/18 09:27 Toprol Xl - PO 50 mg DAILY [facility] Administration Morphine Sulfate 2 mg 06/27/18 19:07 Morphine Sulfate IVPUSH Q4H PRN PAIN SCALE 7-10 Multivitamins/Minerals/Vitamin C 1 tab 06/26/18 10:00 06/29/18 09:26 Tab-A-Vit - PO 1 tab DAILY [facility] Administration Mupirocin 1 applic 06/27/18 22:00 06/29/18 09:28 Bactroban Ointment (For Decolonization) - NS 07/02/18 21:59 1 applic BID [facility] Administration Ondansetron HCl 4 mg 06/25/18 16:34 Zofran Injection IVPUSH Q6H PRN NAUSEA AND/OR VOMITING Pantoprazole Sodium 40 mg 06/26/18 10:00 06/29/18 09:26 Protonix - PO 40 mg DAILY [facility] Administration Phenytoin Sodium 500 mg 06/25/18 22:00 06/29/18 00:21 Dilantin - PO 500 mg HS [facility] Administration Polyethylene Glycol 17 gm 06/28/18 10:00 06/29/18 09:25 Miralax (For Daily Use) - PO 17 gm DAILY [facility] Administration Senna/Docusate Sodium 1 tablet 06/25/18 22:00 06/29/18 09:26 Pericolace - PO 1 tablet BID [facility] Administration Tamsulosin HCl 0.4 mg 06/25/18 22:00 06/29/18 00:20 Flomax - PO 0.4 mg HS [facility] Administration ASSESSMENT/PLAN: 67 yo AA M W HTN, HLD, LLE DVT on coumadin, seizure disorder, b/l knee replacement (R knee replacement on 06/25) transferred from [facility] for acute intra- articular hemorrhage after a mechanical fall. L knee replacement, complicated with bleeding, not stopped - Pain control - Cont. bowel regimen - Incentive spirometry Vascular: h/o DVT, intra-articular hemorrhage - c/w heparin gtt to achieve therapeutic PTT - s/p 1 PRBC, cbc is stable at this time HTN, HLD:C/W lisinopril, metoprolol and lotrel, Cardiology on broad seizure disorder : CW/dilantin : ?BPH - Cont. finasteride and flomax Dispo: most likely can be transferred to regular medicine floor Visit type - Emergency Visit Emergency Visit: Yes ED Registration Date: 06/25/18 Care time: The patient presented to the Emergency Department on the above date and was hospitalized for further evaluation of their emergent condition. - New Patient This patient is new to me today: Yes Date on this admission: 06/29/18 - Critical Care Critical Care patient: No - Discharge Referral Referred to [facility] Med P.C.: No
[2018-06-29 15:21] LABS: ARTERIAL BLD GAS O2 SATURATION 96.1 % (95-98); ARTERIAL BLOOD GAS BASE EXCESS 0.5 meq/l (-2-2); ARTERIAL BLOOD GAS PCO2 35.2 mmHg (35-45); ARTERIAL BLOOD GAS PO2 75.8 mmHg (80-105); ARTERIAL BLOOD GAS pH 7.45 (7.35-7.45)
[2018-06-29 15:23] LABS: ALLENS TEST POSITIVE
[2018-06-29] MEDS ORDERED: VANCOMYCIN HCL 1,500 MG in DEXTROSE 5%-WATER - 500 ML IVPB ONE (17:32)
[2018-06-29] MEDS ORDERED: SODIUM CHLORIDE 1,000 ML IV STA (17:32)
[2018-06-29] MEDS ORDERED: PIPERACILLIN/TAZOB 3.375 GM 3.375 GM in DEXTROSE 5%-WATER - 50 ML IVPB ONE (17:33)
[2018-06-29 17:37] LABS: BASO % 0.8 % (0-2.0); EOS % 0.9 % (0-4.5); HEMATOCRIT 25.2 % (35.4-49); HEMOGLOBIN 8.5 GM/dL (11.7-16.9); LYMPH % 12.1 % (8-40); MCH 30.8 pg (25.7-33.7); MCHC 33.6 g/dl (32.0-35.9); MEAN CELL VOLUME 91.8 fl (80-96); MEAN PLT VOLUME 9.5 fl (7.5-11.1); NEUT % 71.2 % (42.8-82.8); PLATELET COUNT 200 K/MM3 (134-434); RBC 2.75 M/mm3 (4.00-5.60); WHITE BLOOD COUNT 9.1 K/mm3 (4.0-10.0)
--- NOTE | 2018-06-29 17:38 | HOSP ---
Subjective - Review of Symptoms Events since last encounter: Noted by nurse practitioner physicians assistant resident and RNs that patient is becoming increasingly lethargic and sleepy. Patient also had fevers. Will send blood cultures, UC/UX, CBC, BMP, Mg. stat CT head Blood gas shows hypoxemia, will put patient on NC 2L Stat dose of vanco + zosyn and ID consult Physical Examination Vital Signs: Vital Signs Temperature 100.9 F H 06/29/18 16:00 Pulse Rate 104 H 06/29/18 16:00 Respiratory Rate 24 H 06/29/18 16:00 Blood Pressure 98/61 06/29/18 16:00 O2 Sat by Pulse Oximetry (%) 98 06/29/18 08:00 Visit type - Emergency Visit Emergency Visit: No - New Patient This patient is new to me today: No - Critical Care Critical Care patient: Yes Total Critical Care Time (in minutes): 35 Critical Care Statement: The care of this patient involved high complexity decision making to prevent further life threatening deterioration of the patient 's condition and/or to evaluate & treat vital organ system(s) failure or risk of failure.
[2018-06-29 17:49] LABS: INR 1.08 (0.83-1.09); PROTHROMBIN TIME (PATIENT) 12.7 SEC (9.7-13.0)
[2018-06-29 17:51] LABS: ACTIVATED PTT 19.8 SECONDS (25.2-36.5)
[2018-06-29 18:01] LABS: ANION GAP 8 MMOL/L (8-16); BLOOD UREA NITROGEN 46 mg/dL (7-18); CALCIUM 8.1 mg/dL (8.5-10.1); CHLORIDE 101 mmol/L (98-107); CO2 26 mmol/L (21-32); CREATININE 1.8 mg/dL (0.55-1.3); GLUCOSE,RANDOM 116 mg/dL (74-106); MAGNESIUM 3.2 mg/dL (1.8-2.4); POTASSIUM 4.3 mmol/L (3.5-5.1); SODIUM 136 mmol/L (136-145)
[2018-06-29] MEDS ORDERED: DEXTROSE 5%-WATER - 50 ML IVPB ONE (18:35)
[2018-06-29] MEDS ORDERED: PIPERACILLIN/TAZOBACTAM 3.375 GM VIAL IVPB ONE (18:35)
[2018-06-29] MEDS ORDERED: ACETAMINOPHEN 1000 MG/100 ML VIAL (NON FORMULARY) IVPB ONE (21:04)
[2018-06-29] MEDS: PHENYTOIN SODIUM 100 MG/2 ML VIAL IVPB SCH (23:00)
[2018-06-30] MEDS ORDERED: PIPERACILLIN/TAZOBACTAM 3.375 GM VIAL IVPB ONE (03:36)
[2018-06-30] MEDS ORDERED: DEXTROSE 5%-WATER - 50 ML IVPB ONE ×2 (03:37→15:26)
[2018-06-30] MEDS ORDERED: PIPERACILLIN/TAZOB 3.375 GM 3.375 GM in DEXTROSE 5%-WATER - 50 ML IVPB ONE (04:00)
[2018-06-30 05:52] LABS: BASO % 0.5 % (0-2.0); EOS % 2.6 % (0-4.5); HEMATOCRIT 21.9 % (35.4-49); HEMOGLOBIN 7.5 GM/dL (11.7-16.9); LYMPH % 17.3 % (8-40); MCH 30.8 pg (25.7-33.7); MCHC 34.1 g/dl (32.0-35.9); MEAN CELL VOLUME 90.4 fl (80-96); MEAN PLT VOLUME 8.3 fl (7.5-11.1); NEUT % 65.6 % (42.8-82.8); PLATELET COUNT 175 K/MM3 (134-434); RBC 2.42 M/mm3 (4.00-5.60); RDW 14.7 % (11.9-15.9); WHITE BLOOD COUNT 8.1 K/mm3 (4.0-10.0)
[2018-06-30 05:58] LABS: INR 1.15 (0.83-1.09); PROTHROMBIN TIME (PATIENT) 13.6 SEC (9.7-13.0)
[2018-06-30 06:29] LABS: ALBUMIN 2.2 g/dl (3.4-5.0); ALK PHOS 94 U/L (45-117); ANION GAP 7 MMOL/L (8-16); BILIRUBIN,TOTAL 0.7 mg/dL (0.2-1); BLOOD UREA NITROGEN 46 mg/dL (7-18); CHLORIDE 105 mmol/L (98-107); CO2 27 mmol/L (21-32); CREATININE 1.6 mg/dL (0.55-1.3); GLUCOSE,RANDOM 118 mg/dL (74-106); POTASSIUM 3.3 mmol/L (3.5-5.1); SGOT/AST 60 U/L (15-37); SGPT/ALT 35 U/L (13-61); SODIUM 139 mmol/L (136-145); TOT PROT 5.4 g/dl (6.4-8.2)
[2018-06-30 06:31] LABS: CALCIUM 6.8 mg/dL (8.5-10.1)
[2018-06-30] MEDS ORDERED: VANCOMYCIN HCL 1,500 MG in DEXTROSE 5%-WATER - 500 ML IVPB ONE ×2 (07:00→10:00)
[2018-06-30] MEDS ORDERED: CALCIUM (OYSTER SHELL) 500 MG TABLET (FP) PO ONE ×2 (07:36→08:45)
[2018-06-30 07:57] LABS: MAGNESIUM 3.1 mg/dL (1.8-2.4); PHOSPHOROUS 3.8 mg/dL (2.5-4.9)
--- NOTE | 2018-06-30 08:03 | CONSULT ---
- Consultation REQUESTING PROVIDER: Jonathan Langston CONSULT REQUEST: We have been asked to surgically evaluate this patient for Acute DVT of Left LE. PCP:Jonathan Langston HISTORY OF PRESENT ILLNESS: POD #2 Left TKA, after fall and subsequent large hemarthrosis in left knee patient found to have DVT in Left LE and was transferred to ICU from [place] for Acute DVT LLE. 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 Jonathan Langston. POD #2. Patient seen and examined at bedside resting comfortably but rousable. Patient denies any CO, SOB, N/V, fever or chills. PMHx: HTN HLD DVT on coumadin x 15 yrs seizure disorder PSHx: s/p L TKA right TKA Home Medications Medication Instructions Recorded Amlodipine Besylate/Benazepril 1 each PO DAILY 06/12/18 [Lotrel ] Finasteride [Proscar -] 5 mg PO HS 06/12/18 Metoprolol Succinate [Toprol Xl] 50 mg PO DAILY 06/12/18 Phenytoin Sodium Extended 500 mg PO HS 06/12/18 Tamsulosin HCl [Flomax] 0.4 mg PO HS 06/12/18 Warfarin Sodium [Coumadin] 4 mg PO Q48H 06/12/18 Warfarin Sodium [Coumadin] 5 mg PO Q48H 06/12/18 Enoxaparin [Lovenox -] 60 mg SQ BID 06/25/18 Allergies Allergy/AdvReac Type Severity Reaction Status Date / Time No Known Allergies Allergy Verified 06/12/18 10:41 REVIEW OF SYSTEMS: Unable to obtain as patient sleepy and mildly confused. PHYSICAL EXAM: GENERAL: sleeping but rousable, A&Ox2, NAD HEAD: Normal with no signs of trauma. LUNGS: No auditory wheezes, No accessory muscle use on 2L NC UPPER EXTREMITIES: warm, well-perfused. No cyanosis. LOWER EXTREMITIES: Left LE. Diffuse edema throughout the entire LE. compartments soft, and diffusely tender to palpation. dressing dry and intact with some dry blood but no evidence of active bleeding. Patient can move toes on command and lightly dorsi/plantar flex limited 2/2 pain. No evidence of compartment syndrome, no lesion or rashes seen throughout. ROM not tested. Foot and Leg +1 pulses, warm, well-perfused. Right LE with no significant edema or erythema, no lesions or rashes, well healed scar noted over knee. compartments soft, supple and non-tender with +2 DP pulses. NEUROLOGICAL: gait not observed. PSYCH: Cooperative. flat affect, patient appeared somnolent. SKIN: Warm, dry, normal turgor, no rashes or lesions noted. Vital Signs Temperature 99.8 F H 06/30/18 06:00 Pulse Rate 96 H 06/30/18 06:00 Respiratory Rate 23 H 06/30/18 06:00 Blood Pressure 121/71 06/30/18 06:00 O2 Sat by Pulse Oximetry (%) 99 06/29/18 21:00 Lab Results WBC 8.1 K/mm3 (4.0-10.0) 06/30/18 05:30 RBC 2.42 M/mm3 (4.00-5.60) L 06/30/18 05:30 Hgb 7.5 GM/dL (11.7-16.9) L 06/30/18 05:30 Hct 21.9 % (35.4-49) L 06/30/18 05:30 MCV 90.4 fl (80-96) 06/30/18 05:30 MCHC 34.1 g/dl (32.0-35.9) 06/30/18 05:30 RDW 14.7 % (11.9-15.9) 06/30/18 05:30 Plt Count 175 K/MM3 (134-434) 06/30/18 05:30 Sodium 139 mmol/L (136-145) 06/30/18 05:30 Potassium 3.3 mmol/L (3.5-5.1) L 06/30/18 05:30 Chloride 105 mmol/L (98-107) 06/30/18 05:30 Carbon Dioxide 27 mmol/L (21-32) 06/30/18 05:30 Anion Gap 7 MMOL/L (8-16) L 06/30/18 05:30 BUN 46 mg/dL (7-18) H 06/30/18 05:30 Creatinine 1.6 mg/dL (0.55-1.3) H 06/30/18 05:30 Random Glucose 118 mg/dL (74-106) H 06/30/18 05:30 Calcium 6.8 mg/dL (8.5-10.1) L* 06/30/18 05:30 Blood Type A POSITIVE 06/26/18 00:00 Antibody Screen Negative 06/25/18 22:00 INR 1.15 (0.83-1.09) H 06/30/18 05:30 soft tissue ultrasound 06/27: non-compression of Left popliteal vein consistent with DVT CTA 06/26- neg PE Problem List - Problems (1) DVT (deep venous thrombosis) Assessment/Plan: POD # 5 Left TKA with acute DVT of the left popliteal vein and no indication for surgical intervention. 1) continue AC per medicine/cardiology 2) Elevate left LE above level of heart 3) transfuse PRN 4) trend H&H 5) OOB with PT as tolerated when stable 6) Re-consult vascular PRN evaluation and plan discussed with Dr Evans. Code(s): I82.409 - ACUTE EMBOLISM AND THOMBOS UNSP DEEP VN UNSP LOWER EXTREMITY
[2018-06-30] MEDS ORDERED: PT OWN MED DRAWER 7, Y5N ONE ×2 (08:41→08:56)
[2018-06-30] MEDS: SODIUM CHLORIDE 1,000 ML IV SCH (08:58)
[2018-06-30] MEDS: KCL 10 MEQ IVPB 10 MEQ/100 ML INFUS.BAG IVPB SCH ×3 (08:59→15:53)
--- NOTE | 2018-06-30 09:08 | PN ---
Physical Exam: SUBJECTIVE: Patient seen this morning and confused. Spoke with Evans and he will go for IVC filter today. To receive one unit today. Patient does not sleep overnight. OBJECTIVE: Vital Signs Temperature 99.4 F 06/30/18 08:00 Pulse Rate 96 H 06/30/18 08:00 Respiratory Rate 22 H 06/30/18 08:00 Blood Pressure 109/69 06/30/18 08:00 O2 Sat by Pulse Oximetry (%) 99 06/29/18 21:00 GENERAL: The patient is awake, alert, and fully oriented, in no acute distress. HEAD: Normal with no signs of trauma. EYES: PERRL, extraocular movements intact, LUNGS: Breath sounds equal, clear to auscultation bilaterally, no wheezes, no crackles, no accessory muscle use. HEART: Regular rate and rhythm, S1, S2 without murmur, rub or gallop. ABDOMEN: Soft, nontender, nondistended, normoactive bowel sounds, no guarding EXTREMITIES: 2+ pulses, warm R knee swollen, tender, and warmer then left knee PSYCH: Normal mood, normal affect. SKIN: Warm, dry, normal turgor, no rashes or lesions noted CBCD WBC 8.1 K/mm3 (4.0-10.0) 06/30/18 05:30 RBC 2.42 M/mm3 (4.00-5.60) L 06/30/18 05:30 Hgb 7.5 GM/dL (11.7-16.9) L 06/30/18 05:30 Hct 21.9 % (35.4-49) L 06/30/18 05:30 MCV 90.4 fl (80-96) 06/30/18 05:30 MCHC 34.1 g/dl (32.0-35.9) 06/30/18 05:30 RDW 14.7 % (11.9-15.9) 06/30/18 05:30 Plt Count 175 K/MM3 (134-434) 06/30/18 05:30 MPV 8.3 fl (7.5-11.1) D 06/30/18 05:30 CMP Sodium 139 mmol/L (136-145) 06/30/18 05:30 Potassium 3.3 mmol/L (3.5-5.1) L 06/30/18 05:30 Chloride 105 mmol/L (98-107) 06/30/18 05:30 Carbon Dioxide 27 mmol/L (21-32) 06/30/18 05:30 Anion Gap 7 MMOL/L (8-16) L 06/30/18 05:30 BUN 46 mg/dL (7-18) H 06/30/18 05:30 Creatinine 1.6 mg/dL (0.55-1.3) H 06/30/18 05:30 Creat Clearance w eGFR 43.07 (>60) 06/30/18 05:30 Calcium 6.8 mg/dL (8.5-10.1) L* 06/30/18 05:30 Total Bilirubin 0.7 mg/dL (0.2-1) 06/30/18 05:30 AST 60 U/L (15-37) H 06/30/18 05:30 ALT 35 U/L (13-61) 06/30/18 05:30 Alkaline Phosphatase 94 U/L (45-117) 06/30/18 05:30 Total Protein 5.4 g/dl (6.4-8.2) L 06/30/18 05:30 Albumin 2.2 g/dl (3.4-5.0) L 06/30/18 05:30 Active Medications Al Hydroxide/Mg Hydroxide (Mylanta Oral Suspension -) 30 ml PO Q4H PRN PRN Reason: DYSPEPSIA Amlodipine Besylate (Norvasc -) 5 mg PO DAILY [facility] Last Admin: 06/29/18 09:26 Dose: 5 mg Chlorhexidine Gluconate (Hibiclens For Decolonization -) 1 applic TP HS [facility] Last Admin: 06/29/18 21:58 Dose: 1 applic Enoxaparin Sodium (Lovenox -) 120 mg SQ BID [facility] Last Admin: 06/29/18 21:58 Dose: 120 mg Finasteride (Proscar -) 5 mg PO HS [facility] Last Admin: 06/29/18 21:59 Dose: Not Given Potassium Chloride (Potassium Chloride 10 Meq Premix Ivpb -) 10 meq in 100 mls @ 100 mls/hr IVPB Q60M [facility] Stop: 06/30/18 10:44 Last Admin: 06/30/18 08:59 Dose: 100 mls/hr Sodium Chloride (Normal Saline -) 1,000 mls @ 75 mls/hr IV ASDIR [facility] Last Admin: 06/30/18 08:58 Dose: 75 mls/hr Lisinopril (Prinivil) 40 mg PO DAILY [facility] Last Admin: 06/29/18 09:26 Dose: 40 mg Magnesium Hydroxide (Milk Of Magnesia -) 30 ml PO PRN PRN PRN Reason: CONSTIPATION Metoprolol Succinate (Toprol Xl -) 50 mg PO DAILY [facility] Last Admin: 06/29/18 09:27 Dose: 50 mg Multivitamins/Minerals/Vitamin C (Tab-A-Vit -) 1 tab PO DAILY [facility] Last Admin: 06/29/18 09:26 Dose: 1 tab Mupirocin (Bactroban Ointment (For Decolonization) -) 1 applic NS BID [facility] Stop: 07/02/18 21:59 Last Admin: 06/29/18 21:58 Dose: 1 applic Ondansetron HCl (Zofran Injection) 4 mg IVPUSH Q6H PRN PRN Reason: NAUSEA AND/OR VOMITING Pantoprazole Sodium (Protonix -) 40 mg PO DAILY [facility] Last Admin: 06/29/18 09:26 Dose: 40 mg Phenytoin Sodium (Dilantin Injection -) 500 mg IVPB ONCE [facility] Last Admin: 06/29/18 23:00 Dose: 500 mg Polyethylene Glycol (Miralax (For Daily Use) -) 17 gm PO DAILY [facility] Last Admin: 06/29/18 09:25 Dose: 17 gm Senna/Docusate Sodium (Pericolace -) 1 tablet PO BID [facility] Last Admin: 06/29/18 21:59 Dose: Not Given Tamsulosin HCl (Flomax -) 0.4 mg PO HS [facility] Last Admin: 06/29/18 21:58 Dose: Not Given ASSESSMENT/PLAN: Patient is a 67 y/o male with a history of HTN, HLD, LLE DVT ( on coumadin), seizure disorder, and L knee replacement ( 06/25) who is here for acute intrarticular hemorrhage. Neuro - confused, lethargic - continue pheyntoin 500 po hs for seizure hx - head CT: moderate volume loss and ventricular dilatation, b/l supratentorial periventricular calcified densities Cardio - continue metoprolol succinate 50 daily - amlodipine 10 mg - lisinopril 40 daily ( hold for CHAD) - Echo: LV normal, RV not well seen, mild MR Pulm - stable - Chest CTA: no PE found GI - pt constipated - continue docusate and miralax - Chest CTA: hypodenisities in liver, spleen, and pancreas, suggests US f/u Renal - Cr down to 1.6 - hold nephro toxic agents - continue fluids for management ID - fevers over the weekend - blood cx and urine cx sent - Vanc, Ceftriaxone day 1 Heme - intrarticular bleed in L knee, knee replacement with Dr. Langston - 1 unit PRBC given, 2nd unit ordered, f/u CBC @ 330 - hgb 7.5, decreased from yesterday, also received a bolus - hold lovenox for preop, 120 sq BID - home dose coumadin 4mg and 5 mg every other day - IVC filter insertion today - continue finasteride 5 mg po hs - continue tamsulosin 0.4 mg hs - [place] for incontinence FEN - NPO Dispo: IVC filter to be placed today Visit type - Emergency Visit Emergency Visit: No - New Patient This patient is new to me today: No - Critical Care Critical Care patient: Yes Total Critical Care Time (in minutes): 40 Critical Care Statement: The care of this patient involved high complexity decision making to prevent further life threatening deterioration of the patient 's condition and/or to evaluate & treat vital organ system(s) failure or risk of failure.
[2018-06-30] MEDS: amLODIPine BESYLATE 5 MG TABLET (FP) PO SCH (09:40)
[2018-06-30] MEDS: MULTIVITAMINS (DAILY MVI) TABLET (FP) PO SCH (09:41)
[2018-06-30] MEDS: MUPIROCIN 2% TOPICAL OINTMENT FOR DECOLONIZATION NS SCH ×2 (09:43→23:35)
[2018-06-30] MEDS: ENOXAPARIN NA (PORCINE) 120 MG/0.8 ML DISP.SYRIN SQ SCH (09:43)
[2018-06-30] MEDS: PANTOPRAZOLE 40 MG TABLET (FP) PO SCH (09:43)
[2018-06-30] MEDS: POLYETHYLENE GLYCOL 3350 119 GM BTL PO SCH (09:45)
[2018-06-30] MEDS: SENNOSIDES/DOCUSATE COMBO (SENNA PLUS) TABLET (UD) PO SCH ×2 (09:46→21:18)
--- NOTE | 2018-06-30 10:00 | PN ---
Progress Note, Physician Chief Complaint: knee pain History of Present Illness: denies cp, sob, palpit, presyncope - Current Medication List Current Medications: Active Medications Al Hydroxide/Mg Hydroxide (Mylanta Oral Suspension -) 30 ml PO Q4H PRN PRN Reason: DYSPEPSIA Amlodipine Besylate (Norvasc -) 5 mg PO DAILY [facility] Last Admin: 06/30/18 09:40 Dose: 5 mg Chlorhexidine Gluconate (Hibiclens For Decolonization -) 1 applic TP [facility] Last Admin: 06/29/18 21:58 Dose: 1 applic Enoxaparin Sodium (Lovenox -) 120 mg SQ BID [facility] Last Admin: 06/30/18 09:43 Dose: 120 mg Finasteride (Proscar -) 5 mg PO [facility] Last Admin: 06/29/18 21:59 Dose: Not Given Potassium Chloride (Potassium Chloride 10 Meq Premix Ivpb -) 10 meq in 100 mls @ 100 mls/hr IVPB Q60M [facility] Stop: 06/30/18 10:44 Last Admin: 06/30/18 08:59 Dose: 100 mls/hr Sodium Chloride (Normal Saline -) 1,000 mls @ 75 mls/hr IV ASDIR [facility] Last Admin: 06/30/18 08:58 Dose: 75 mls/hr Vancomycin HCl 1,500 mg/ (Dextrose) 500 mls @ 250 mls/hr IVPB ONCE ONE; Protocol Stop: 06/30/18 11:59 Lisinopril (Prinivil) 40 mg PO DAILY [facility] Last Admin: 06/29/18 09:26 Dose: 40 mg Magnesium Hydroxide (Milk Of Magnesia -) 30 ml PO PRN PRN PRN Reason: CONSTIPATION Metoprolol Succinate (Toprol Xl -) 50 mg PO DAILY [facility] Last Admin: 06/30/18 09:42 Dose: 50 mg Multivitamins/Minerals/Vitamin C (Tab-A-Vit -) 1 tab PO DAILY [facility] Last Admin: 06/30/18 09:41 Dose: 1 tab Mupirocin (Bactroban Ointment (For Decolonization) -) 1 applic NS BID [facility] Stop: 07/02/18 21:59 Last Admin: 06/30/18 09:43 Dose: 1 applic Ondansetron HCl (Zofran Injection) 4 mg IVPUSH Q6H PRN PRN Reason: NAUSEA AND/OR VOMITING Pantoprazole Sodium (Protonix -) 40 mg PO DAILY [facility] Last Admin: 06/30/18 09:43 Dose: 40 mg Phenytoin Sodium (Dilantin Injection -) 500 mg IVPB ONCE [facility] Last Admin: 06/29/18 23:00 Dose: 500 mg Polyethylene Glycol (Miralax (For Daily Use) -) 17 gm PO DAILY [facility] Last Admin: 06/30/18 09:45 Dose: Not Given Senna/Docusate Sodium (Pericolace -) 1 tablet PO BID [facility] Last Admin: 06/30/18 09:46 Dose: Not Given Tamsulosin HCl (Flomax -) 0.4 mg PO HS [facility] Last Admin: 06/29/18 21:58 Dose: Not Given - Objective Vital Signs: Vital Signs Temperature 99.4 F 06/30/18 08:00 Pulse Rate 102 H 06/30/18 09:35 Respiratory Rate 26 H 06/30/18 09:35 Blood Pressure 126/64 06/30/18 09:35 O2 Sat by Pulse Oximetry (%) 99 06/29/18 21:00 Constitutional: Yes: Well Nourished, No Distress, Calm Cardiovascular: Yes: Regular Rate and Rhythm, S1, S2. No: Gallop, Murmur Respiratory: Yes: Regular, CTA Bilaterally. No: Accessory Muscle Use, Rales Extremities: No: Cold Edema: No Neurological: Yes: Alert, Oriented Psychiatric: No: Agitated Labs: CBC, BMP 06/30/18 05:30 06/30/18 05:30 INR, PTT INR 1.15 (0.83-1.09) H 06/30/18 05:30 Assessment/Plan 67M h/o HTN, HLD, h/o DVT p/w tachycardia after total knee replacement tachycardia - no central PE on CTA - HRs likely sec to anemia--improved s/p PRBCs hypotension, CHAD: -06/30: hypotensive early this morning, hgb down 1g today to 7.5--improved with IVF -cont fluids -blood transfusion support -bleeding w/u per ortho -BP support (expect he will stabilize with fluids and cessation of amlodipine/ KELSEA--defer pressors for now) -renal fxn w/u per crit care -cont metoprolol as bp allows h/o VTEs, on half-way warfarin: - subtherapeutic lovenox dose given preop as bridging - L pop vein DVT here on sonogram-AC per crit care in d/w orthopedic surgery - H/H stable--cont monitoring - w/u for bleeding per ortho/critical care if needed (as above) VTach: - stable overnight - Keep K>4 and Mg >2 - EF normal. - cont tele HTN - on toprol, lisinopril, amlodipine - holding home meds due to hypotension at times s/p L TKR - manage per ortho
[2018-06-30] MEDS ORDERED: ACETAMINOPHEN 325 MG TABLET (FP) PO ONE (10:32)
--- NOTE | 2018-06-30 10:33 | EKG ---
Test Reason : Blood Pressure : / mmHG Vent. Rate : 105 BPM Atrial Rate : 105 BPM P-R Int : 208 ms QRS Dur : 100 ms QT Int : 338 ms P-R-T Axes : 030 -25 055 degrees QTc Int : 446 ms SINUS TACHYCARDIA MINIMAL VOLTAGE CRITERIA FOR LVH, MAY BE NORMAL VARIANT NONSPECIFIC ST AND T WAVE ABNORMALITY ABNORMAL ECG WHEN COMPARED WITH ECG OF 26-JUN-2018 12:32, CRITERIA FOR ANTERIOR INFARCT ARE NO LONGER PRESENT Confirmed by JESUSITA GLOVER, MEHDI ([id number]) on 06/30/2018 10:33:38 AM Referred By: Jonathan Langston Confirmed By:MEHDI MC MD
--- NOTE | 2018-06-30 11:40 | PN ---
Teaching Attending Note Name of Resident: Janet Chance ATTENDING PHYSICIAN STATEMENT I saw and evaluated the patient. I reviewed the resident's note and discussed the case with the resident. I agree with the resident's findings and plan as documented. SUBJECTIVE: Pt seen and examined in the ICU. Waxing/waning mental status. Low grade fevers. H/H lower on full dose anticoagulation. OBJECTIVE: Vital Signs Period Temp Pulse Resp BP Sys/Gee Pulse Ox Last 24 Hr 99.4 F-100.9 F 95-110 19-26 82-140/41-75 99 Intake & Output 06/27/18 06/28/18 06/29/18 06/30/18 23:59 23:59 23:59 23:59 Intake Total 490 1742 800 Output Total 210 300 Balance 280 -300 1742 800 Weight 124.5 kg 124.284 kg 125.5 kg 126.008 kg Gen: arousable Heart: RRR Lung: scattered basilar rales Abd: soft, nontender Ext: LLE edema, ecchymoses CBC, BMP 06/30/18 05:30 06/30/18 05:30 Active Medications Al Hydroxide/Mg Hydroxide (Mylanta Oral Suspension -) 30 ml PO Q4H PRN PRN Reason: DYSPEPSIA Chlorhexidine Gluconate (Hibiclens For Decolonization -) 1 applic TP HS [facility] Last Admin: 06/29/18 21:58 Dose: 1 applic Finasteride (Proscar -) 5 mg PO HS [facility] Last Admin: 06/29/18 21:59 Dose: Not Given Sodium Chloride (Normal Saline -) 1,000 mls @ 75 mls/hr IV ASDIR [facility] Last Admin: 06/30/18 08:58 Dose: 75 mls/hr Vancomycin HCl 1,500 mg/ (Dextrose) 500 mls @ 250 mls/hr IVPB ONCE ONE; Protocol Stop: 06/30/18 11:59 Ceftriaxone Sodium 1 gm/ (Dextrose) 50 mls @ 100 mls/hr IVPB DAILY [facility] Magnesium Hydroxide (Milk Of Magnesia -) 30 ml PO PRN PRN PRN Reason: CONSTIPATION Metoprolol Succinate (Toprol Xl -) 50 mg PO DAILY [facility] Last Admin: 06/30/18 09:42 Dose: 50 mg Multivitamins/Minerals/Vitamin C (Tab-A-Vit -) 1 tab PO DAILY [facility] Last Admin: 06/30/18 09:41 Dose: 1 tab Mupirocin (Bactroban Ointment (For Decolonization) -) 1 applic NS BID [facility] Stop: 07/02/18 21:59 Last Admin: 06/30/18 09:43 Dose: 1 applic Ondansetron HCl (Zofran Injection) 4 mg IVPUSH Q6H PRN PRN Reason: NAUSEA AND/OR VOMITING Pantoprazole Sodium (Protonix -) 40 mg PO DAILY [facility] Last Admin: 06/30/18 09:43 Dose: 40 mg Phenytoin Sodium (Dilantin Injection -) 500 mg IVPB ONCE [facility] Last Admin: 06/29/18 23:00 Dose: 500 mg Polyethylene Glycol (Miralax (For Daily Use) -) 17 gm PO DAILY [facility] Last Admin: 06/30/18 09:45 Dose: Not Given Senna/Docusate Sodium (Pericolace -) 1 tablet PO BID [facility] Last Admin: 06/30/18 09:46 Dose: Not Given Tamsulosin HCl (Flomax -) 0.4 mg PO HS [facility] Last Admin: 06/29/18 21:58 Dose: Not Given ASSESSMENT AND PLAN: s/p L TKR Acute LLE DVT Acute Blood Loss Anemia r/o Pneumonia Sepsis Acute Kidney Injury HTN Hyperlipidemia remote h/o R DVT - started on antibiotics - f/u cultures - hold anticoagulation - monitor H/H - transfuse as needed - vascular consult for IVC filter - pain control - aspiration precautions - continue ICU monitoring
[2018-06-30 12:03] LABS: EPI CELLS 2.4 /HPF (0-5/HPF); URINE APPEARANCE CLOUDY; URINE BILIRUBIN NEGATIVE (NEGATIVE); URINE CASTS 17 /lpf (0-8); URINE COLOR YELLOW; URINE GLUCOSE (UA) NEGATIVE (NEGATIVE); URINE KETONE NEGATIVE (NEGATIVE); URINE LEUK ESTERASE NEGATIVE (NEGATIVE); URINE NITRITE NEGATIVE (NEGATIVE); URINE PROTEIN 1+ (NEGATIVE); URINE UROBILINOGEN 0.2 mg/dL (0.2-1.0); URINE WBC 7 /hpf (0-5)
[2018-06-30 12:26] LABS: URINE BACTERIA 0.5 /hpf (NEGATIVE); URINE RBC 7.7 /hpf (0-4)
--- NOTE | 2018-06-30 12:26 | PN ---
Progress Note, Physician Chief Complaint: Not in acute distress History of Present Illness: 67 yo AA M W HTN, HLD, LLE DVT on coumadin, seizure disorder, b/l knee replacement (R knee replacement on 06/25) transferred from [facility] for acute intra- articular hemorrhage after a mechanical fall. - Current Medication List Current Medications: Active Medications Al Hydroxide/Mg Hydroxide (Mylanta Oral Suspension -) 30 ml PO Q4H PRN PRN Reason: DYSPEPSIA Chlorhexidine Gluconate (Hibiclens For Decolonization -) 1 applic TP HS [facility] Last Admin: 06/29/18 21:58 Dose: 1 applic Finasteride (Proscar -) 5 mg PO HS [facility] Last Admin: 06/29/18 21:59 Dose: Not Given Sodium Chloride (Normal Saline -) 1,000 mls @ 75 mls/hr IV ASDIR [facility] Last Admin: 06/30/18 08:58 Dose: 75 mls/hr Ceftriaxone Sodium 1 gm/ (Dextrose) 50 mls @ 100 mls/hr IVPB DAILY [facility] Magnesium Hydroxide (Milk Of Magnesia -) 30 ml PO PRN PRN PRN Reason: CONSTIPATION Metoprolol Succinate (Toprol Xl -) 50 mg PO DAILY [facility] Last Admin: 06/30/18 09:42 Dose: 50 mg Multivitamins/Minerals/Vitamin C (Tab-A-Vit -) 1 tab PO DAILY [facility] Last Admin: 06/30/18 09:41 Dose: 1 tab Mupirocin (Bactroban Ointment (For Decolonization) -) 1 applic NS BID [facility] Stop: 07/02/18 21:59 Last Admin: 06/30/18 09:43 Dose: 1 applic Ondansetron HCl (Zofran Injection) 4 mg IVPUSH Q6H PRN PRN Reason: NAUSEA AND/OR VOMITING Pantoprazole Sodium (Protonix -) 40 mg PO DAILY [facility] Last Admin: 06/30/18 09:43 Dose: 40 mg Phenytoin Sodium (Dilantin Injection -) 500 mg IVPB ONCE [facility] Last Admin: 06/29/18 23:00 Dose: 500 mg Polyethylene Glycol (Miralax (For Daily Use) -) 17 gm PO DAILY [facility] Last Admin: 06/30/18 09:45 Dose: Not Given Senna/Docusate Sodium (Pericolace -) 1 tablet PO BID [facility] Last Admin: 06/30/18 09:46 Dose: Not Given Tamsulosin HCl (Flomax -) 0.4 mg PO HS [facility] Last Admin: 06/29/18 21:58 Dose: Not Given - Objective Vital Signs: Vital Signs Temperature 100.4 F H 06/30/18 10:30 Pulse Rate 101 H 06/30/18 10:30 Respiratory Rate 23 H 06/30/18 10:30 Blood Pressure 119/58 L 06/30/18 10:30 O2 Sat by Pulse Oximetry (%) 100 06/30/18 09:00 Elderly man looks confused HEENT: Mm moist anemia NECK: No JVd No Bruit CHEST: Basal creots CVS: S1S2 r ABD: Obese, non tender EXT: B/L extensive swelling Left > RT MINING CAPTAIN: AOX# non focal Labs: CBC, BMP 06/30/18 05:30 06/30/18 05:30 INR, PTT INR 1.15 (0.83-1.09) H 06/30/18 05:30 Problem List - Problems (1) DVT (deep venous thrombosis) Assessment/Plan: on Heparin GTT worsening anemia, Evaluted by Vascular plan IVC filter will F/U vascular recommendations. Code(s): I82.409 - ACUTE EMBOLISM AND THOMBOS UNSP DEEP VN UNSP LOWER EXTREMITY (2) Osteoarthritis of left knee Assessment/Plan: S/p TKR cont pain meds Code(s): M17.12 - UNILATERAL PRIMARY OSTEOARTHRITIS, LEFT KNEE (3) Seizures Assessment/Plan: Cont Keepra Code(s): R56.9 - UNSPECIFIED CONVULSIONS (4) HTN (hypertension) Assessment/Plan: Well controlled cont all home meds. Code(s): I10 - ESSENTIAL (PRIMARY) HYPERTENSION (5) Hypercholesteremia Assessment/Plan: Cont Statin Code(s): E78.00 - PURE HYPERCHOLESTEROLEMIA, UNSPECIFIED (6) Morbid obesity with BMI of 40.0-44.9, adult Assessment/Plan: Nutrional consult as out patient Code(s): E66.01 - MORBID (SEVERE) OBESITY DUE TO EXCESS CALORIES; Z68.41 - BODY MASS INDEX (BMI) 40.0-44.9, ADULT (7) Anemia Assessment/Plan: Patient has anemia on AC H/h stable now no other sourse Code(s): D64.9 - ANEMIA, UNSPECIFIED
--- NOTE | 2018-06-30 15:11 | SPA.PREOP ---
- PRE-OP NOTE Dx: Left LE popliteal vein DVT in patient with H&H trending down on Heparin Planned Procedure: IVC filter placement Surgeon: Nathan Last Vital Signs Temp Pulse Resp BP Pulse Ox 98.9 F 91 H 17 137/73 100 06/30/18 14:50 06/30/18 14:50 06/30/18 14:50 06/30/18 14:50 06/30/18 09:00 Lab Results WBC 8.1 K/mm3 (4.0-10.0) 06/30/18 05:30 RBC 2.42 M/mm3 (4.00-5.60) L 06/30/18 05:30 Hgb 7.5 GM/dL (11.7-16.9) L 06/30/18 05:30 Hct 21.9 % (35.4-49) L 06/30/18 05:30 MCV 90.4 fl (80-96) 06/30/18 05:30 MCHC 34.1 g/dl (32.0-35.9) 06/30/18 05:30 RDW 14.7 % (11.9-15.9) 06/30/18 05:30 Plt Count 175 K/MM3 (134-434) 06/30/18 05:30 Sodium 139 mmol/L (136-145) 06/30/18 05:30 Potassium 3.3 mmol/L (3.5-5.1) L 06/30/18 05:30 Chloride 105 mmol/L (98-107) 06/30/18 05:30 Carbon Dioxide 27 mmol/L (21-32) 06/30/18 05:30 Anion Gap 7 MMOL/L (8-16) L 06/30/18 05:30 BUN 46 mg/dL (7-18) H 06/30/18 05:30 Creatinine 1.6 mg/dL (0.55-1.3) H 06/30/18 05:30 Random Glucose 118 mg/dL (74-106) H 06/30/18 05:30 Calcium 6.8 mg/dL (8.5-10.1) L* 06/30/18 05:30 Blood Type A POSITIVE 06/30/18 08:57 Antibody Screen Negative 06/30/18 08:57 INR 1.15 (0.83-1.09) H 06/30/18 05:30 - IMAGING Other: Report Reviewed Problem List - Problems (1) DVT (deep venous thrombosis) Assessment/Plan: 1. Make NPO except po meds 2. GI/DVT PPX 3. Medical optimization / clearance 4. Consent to be obtained by surgeon after risks, benefits and alternatives discussed with patient and or Health Care Proxy. Code(s): I82.409 - ACUTE EMBOLISM AND THOMBOS UNSP DEEP VN UNSP LOWER EXTREMITY
[2018-06-30] MEDS ORDERED: cefTRIAXone SODIUM 1 GM VIAL ONE (15:25)
[2018-06-30] MEDS: CEFTRIAXONE 1 GM in DEXTROSE 5%-WATER - 50 ML IVPB SCH (15:28)
[2018-06-30] MEDS ORDERED: KCL 10 MEQ IVPB 10 MEQ/100 ML INFUS.BAG IVPB SCH (15:30)
[2018-06-30] MEDS ORDERED: LIDOCAINE HCL 1%, 10 MG/ML (20ML VIAL) ONE (16:15)
[2018-06-30] MEDS ORDERED: HEPARIN NA (PORCINE) 5,000 UNITS/ML 1ML VIAL ONE (16:15)
[2018-06-30 16:40] LABS: HEMATOCRIT 24.8 % (35.4-49); HEMOGLOBIN 8.4 GM/dL (11.7-16.9); MCH 30.8 pg (25.7-33.7); MCHC 33.9 g/dl (32.0-35.9); MEAN CELL VOLUME 91.1 fl (80-96); MEAN PLT VOLUME 8.4 fl (7.5-11.1); PLATELET COUNT 195 K/MM3 (134-434); RBC 2.73 M/mm3 (4.00-5.60); RDW 14.4 % (11.9-15.9); WHITE BLOOD COUNT 7.5 K/mm3 (4.0-10.0)
[2018-06-30] MEDS ORDERED: ONDANSETRON 4 MG/2 ML VIAL IVPUSH PRN (17:51)
[2018-06-30] MEDS ORDERED: PROMETHAZINE HCL 25 MG/1 ML VIAL IVPUSH PRN (17:51)
[2018-06-30] MEDS ORDERED: LACTATED RINGERS SOLUTION 1,000 ML IV SCH (18:00)
[2018-06-30 18:32] LABS: PLATELET ESTIMATE ADEQUATE
[2018-06-30] MEDS ORDERED: MIDAZOLAM HCL 2 MG/2 ML SINGLE DOSE VIAL ONE (19:22)
[2018-06-30] MEDS ORDERED: LIDOCAINE HCL 1%, 10 MG/ML (20ML VIAL) ID ONE (19:29)
[2018-06-30] MEDS ORDERED: PROPOFOL 20 ML ONE (19:29)
--- NOTE | 2018-06-30 20:04 | OP ---
Operative Note - Note: Operative Date: 06/30/18 Pre-Operative Diagnosis: DVT left leg Operation: Insertion of IVC filter with venogram Post-Operative Diagnosis: Same as Pre-op Surgeon: Segundo Evans Anesthesia: Fractional Estimated Blood Loss (mls): 10 Operative Report Dictated: Yes
[2018-06-30] MEDS ORDERED: ACETAMINOPHEN 1000 MG/100 ML VIAL (NON FORMULARY) IVPB PRN (21:24)
[2018-06-30] MEDS ORDERED: PHENYTOIN SODIUM 100 MG/2 ML VIAL IVPB SCH (23:30)
[2018-06-30] MEDS: FINASTERIDE 5 MG TABLET (FP) PO SCH (23:34)
[2018-06-30] MEDS: TAMSULOSIN HCL 0.4 MG CAP PO SCH (23:35)
[2018-06-30] MEDS: CHLORHEXIDINE GLUCONATE 4% CLEANSER FOR DECOLONIZATION TP SCH (23:35)
[2018-07-01 06:42] LABS: HEMATOCRIT 24.6 % (35.4-49); HEMOGLOBIN 8.7 GM/dL (11.7-16.9); MCH 31.4 pg (25.7-33.7); MCHC 35.2 g/dl (32.0-35.9); MEAN CELL VOLUME 89.2 fl (80-96); PLATELET COUNT 214 K/MM3 (134-434); RBC 2.75 M/mm3 (4.00-5.60); RDW 14.4 % (11.9-15.9); WHITE BLOOD COUNT 7.8 K/mm3 (4.0-10.0)
[2018-07-01 07:14] LABS: ALBUMIN 2.3 g/dl (3.4-5.0); ALK PHOS 117 U/L (45-117); ANION GAP 6 MMOL/L (8-16); BILIRUBIN,TOTAL 1.1 mg/dL (0.2-1); BLOOD UREA NITROGEN 27 mg/dL (7-18); CHLORIDE 106 mmol/L (98-107); CO2 28 mmol/L (21-32); CREATININE 1.1 mg/dL (0.55-1.3); GLUCOSE,RANDOM 114 mg/dL (74-106); MAGNESIUM 2.9 mg/dL (1.8-2.4); POTASSIUM 3.6 mmol/L (3.5-5.1); SGOT/AST 59 U/L (15-37); SGPT/ALT 43 U/L (13-61); SODIUM 140 mmol/L (136-145); TOT PROT 5.9 g/dl (6.4-8.2)
--- NOTE | 2018-07-01 07:27 | OP ---
DATE OF OPERATION: 06/30/2018 PREOPERATIVE DIAGNOSIS: Left lower extremity deep venous thrombosis. POSTOPERATIVE DIAGNOSIS: Left lower extremity deep venous thrombosis. PROCEDURE: Insertion of inferior vena cava filter with venogram. SURGEON: Segundo Cerrato MD ANESTHESIA: Fractional. BLOOD LOSS: 5 mL. INDICATIONS: The patient is a 67-year-old male who has a left lower extremity DVT. He was being anticoagulated, but now, his hematocrits have been trending down and falling, and the patient can no longer be anticoagulated. It was decided that he would need an IVC filter. Patient was consented for the procedure understanding all risks, benefits, and alternatives, and his signed the consent form understanding all alternatives. PROCEDURE IN DETAIL: Patient was then taken to the operating room, laid on the operating table in the supine manner. The area of the right and left groins was prepped and draped in the sterile surgical manner. We then injected 10 mL of lidocaine 1% over the right common femoral vein. We then used our micropuncture needle and punctured the right common femoral vein. A micropuncture wire was inserted. Micropuncture sheath was inserted. We then placed a 0.035 floppy guidewire up into the inferior vena cava under fluoroscopy. We then placed our IVC filter sheath up to L3. We then shot our Vena Cavagram showing that the IVC was patent and bilateral renal veins come off at L1. At this point, we went ahead and loaded the filter with the sheath, and the filter was deployed between L2 and L3. Completion Vena Cavagram by hand injection showed that the filter was in place, there was no migration of filter, there was no extravasation of contrast, and bilateral renal veins were patent. At this point, we took out our sheath. Pressure was held in the right groin for 5 minutes. After there was no bleeding, the area was wet and dried, and Dermabond was placed. The patient tolerated the procedure with no complications. Patient transferred to PACU in stable condition. Total blood loss 5 mL. SEGUNDO CERRATO DO [id number]
--- NOTE | 2018-07-01 08:40 | PN ---
Physical Exam: SUBJECTIVE: Patient seen this morning and more alert. He had an IVC filter placed yesterday. Spoke with surgery PA who would like his leg to remain elevated. OBJECTIVE: Vital Signs Temperature 99.4 F 07/01/18 08:00 Pulse Rate 92 H 07/01/18 08:00 Respiratory Rate 21 H 07/01/18 08:00 Blood Pressure 128/78 07/01/18 08:00 O2 Sat by Pulse Oximetry (%) 100 06/30/18 22:45 GENERAL: The patient is awake, alert, and fully oriented, in no acute distress. HEAD: Normal with no signs of trauma. EYES: PERRL, extraocular movements intact, LUNGS: Breath sounds equal, clear to auscultation bilaterally, no wheezes, no crackles, no accessory muscle use. HEART: Regular rate and rhythm, S1, S2 without murmur, rub or gallop. ABDOMEN: Soft, nontender, nondistended, normoactive bowel sounds, no guarding EXTREMITIES: 2+ pulses, warm R knee swollen, tender, and warmer then left knee PSYCH: Normal mood, normal affect. SKIN: Warm, dry, normal turgor, no rashes or lesions noted CBCD WBC 7.8 K/mm3 (4.0-10.0) 07/01/18 05:30 RBC 2.75 M/mm3 (4.00-5.60) L 07/01/18 05:30 Hgb 8.7 GM/dL (11.7-16.9) L 07/01/18 05:30 Hct 24.6 % (35.4-49) L 07/01/18 05:30 MCV 89.2 fl (80-96) 07/01/18 05:30 MCHC 35.2 g/dl (32.0-35.9) 07/01/18 05:30 RDW 14.4 % (11.9-15.9) 07/01/18 05:30 Plt Count 214 K/MM3 (134-434) 07/01/18 05:30 MPV 8.0 fl (7.5-11.1) 07/01/18 05:30 CMP Sodium 140 mmol/L (136-145) 07/01/18 05:30 Potassium 3.6 mmol/L (3.5-5.1) 07/01/18 05:30 Chloride 106 mmol/L (98-107) 07/01/18 05:30 Carbon Dioxide 28 mmol/L (21-32) 07/01/18 05:30 Anion Gap 6 MMOL/L (8-16) L 07/01/18 05:30 BUN 27 mg/dL (7-18) H 07/01/18 05:30 Creatinine 1.1 mg/dL (0.55-1.3) 07/01/18 05:30 Creat Clearance w eGFR 66.37 (>60) 07/01/18 05:30 Calcium 8.0 mg/dL (8.5-10.1) L 07/01/18 05:30 Total Bilirubin 1.1 mg/dL (0.2-1) H 07/01/18 05:30 AST 59 U/L (15-37) H 07/01/18 05:30 ALT 43 U/L (13-61) 07/01/18 05:30 Alkaline Phosphatase 117 U/L (45-117) 07/01/18 05:30 Total Protein 5.9 g/dl (6.4-8.2) L 07/01/18 05:30 Albumin 2.3 g/dl (3.4-5.0) L 07/01/18 05:30 Active Medications Acetaminophen (Ofirmev Injection -) 1,000 mg IVPB Q6H PRN PRN Reason: FEVER Last Admin: 06/30/18 23:34 Dose: 1,000 mg Al Hydroxide/Mg Hydroxide (Mylanta Oral Suspension -) 30 ml PO Q4H PRN PRN Reason: DYSPEPSIA Chlorhexidine Gluconate (Hibiclens For Decolonization -) 1 applic TP HS [facility] Last Admin: 06/30/18 23:35 Dose: 1 applic Finasteride (Proscar -) 5 mg PO HS [facility] Last Admin: 06/30/18 23:34 Dose: Not Given Sodium Chloride (Normal Saline -) 1,000 mls @ 75 mls/hr IV ASDIR [facility] Last Admin: 06/30/18 08:58 Dose: 75 mls/hr Ceftriaxone Sodium 1 gm/ (Dextrose) 50 mls @ 100 mls/hr IVPB DAILY [facility] Last Admin: 06/30/18 15:28 Dose: 100 mls/hr Magnesium Hydroxide (Milk Of Magnesia -) 30 ml PO PRN PRN PRN Reason: CONSTIPATION Metoprolol Succinate (Toprol Xl -) 50 mg PO DAILY [facility] Last Admin: 06/30/18 09:42 Dose: 50 mg Multivitamins/Minerals/Vitamin C (Tab-A-Vit -) 1 tab PO DAILY [facility] Last Admin: 06/30/18 09:41 Dose: 1 tab Mupirocin (Bactroban Ointment (For Decolonization) -) 1 applic NS BID [facility] Stop: 07/02/18 21:59 Last Admin: 06/30/18 23:35 Dose: 1 applic Ondansetron HCl (Zofran Injection) 4 mg IVPUSH Q6H PRN PRN Reason: NAUSEA AND/OR VOMITING Pantoprazole Sodium (Protonix -) 40 mg PO DAILY [facility] Last Admin: 06/30/18 09:43 Dose: 40 mg Phenytoin Sodium (Dilantin Injection -) 500 mg IVPB HS [facility] Last Admin: 07/01/18 00:00 Dose: 500 mg Polyethylene Glycol (Miralax (For Daily Use) -) 17 gm PO DAILY [facility] Last Admin: 06/30/18 09:45 Dose: Not Given Promethazine HCl (Phenergan Injection -) 12.5 mg IVPUSH Q6H PRN PRN Reason: NAUSEA-FOR RESCUE AFTER 15 MIN Senna/Docusate Sodium (Pericolace -) 1 tablet PO BID [facility] Last Admin: 06/30/18 21:18 Dose: Not Given Tamsulosin HCl (Flomax -) 0.4 mg PO HS [facility] Last Admin: 06/30/18 23:35 Dose: Not Given ASSESSMENT/PLAN: Patient is a 67 y/o male with a history of HTN, HLD, LLE DVT ( on coumadin), seizure disorder, and L knee replacement ( 06/25) who is here for acute intrarticular hemorrhage. Neuro - confused, lethargic - continue pheyntoin 500 po hs for seizure hx - head CT: moderate volume loss and ventricular dilatation, b/l supratentorial periventricular calcified densities Cardio - continue metoprolol succinate 50 daily ( hold if HR < 60) - amlodipine 10 mg - lisinopril 40 daily - Echo: LV normal, RV not well seen, mild MR Pulm - stable - Chest CTA: no PE found GI - continue docusate and miralax - Chest CTA: hypodenisities in liver, spleen, and pancreas, suggests US f/u as an outpatient Renal - Cr down to 1.0 - continue lasix, can hold if cr bumps up - continue fluids for management ID - fevers over the weekend, tylenol as needed - blood cx and urine cx no growth thus far - Ceftriaxone day 2 - CXR: large pleural effusion, no pneumothorax Heme - intrarticular bleed in L knee, knee replacement with Dr. Langston - received 2 units PRBC - hgb 8.7, stable - IVC filter insertion 06/30 - continue finasteride 5 mg po hs - continue tamsulosin 0.4 mg hs - dunham for incontinence FEN - regular diet - f/u PT, dunham can be DC if patient can walk with PT Dispo: patient safe to be monitored on med surg Visit type - Emergency Visit Emergency Visit: No - New Patient This patient is new to me today: No - Critical Care Critical Care patient: Yes Total Critical Care Time (in minutes): 35 Critical Care Statement: The care of this patient involved high complexity decision making to prevent further life threatening deterioration of the patient 's condition and/or to evaluate & treat vital organ system(s) failure or risk of failure.
--- NOTE | 2018-07-01 09:11 | PN ---
Physical Exam: SUBJECTIVE: Patient seen and examined at the bedside. denies pain or discomfort. OBJECTIVE: Vital Signs Period Temp Pulse Resp BP Sys/Gee Pulse Ox Last 24 Hr 98.9 F-100.4 F 91-105 17-96 119-178/58-111 96-100 GENERAL: The patient is awake, alert, and fully oriented, in no acute distress. HEAD: Normal with no signs of trauma. EYES: PERRL, extraocular movements intact, LUNGS: Breath sounds equal, clear to auscultation bilaterally, no wheezes, no crackles, no accessory muscle use. HEART: Regular rate and rhythm, S1, S2 without murmur, rub or gallop. ABDOMEN: Soft, nontender, nondistended, normoactive bowel sounds, no guarding EXTREMITIES: 2+ pulses, warm R knee swollen and tender PSYCH: Normal mood, normal affect. SKIN: Warm, dry, normal turgor, no rashes or lesions noted Laboratory Results - last 24 hr 06/25/18 06/27/18 06/30/18 22:00 16:30 08:57 WBC RBC Hgb Hct MCV MCH MCHC RDW Plt Count MPV Neutrophils % (Manual) 79.0 Lymphocytes % (Manual) 7.0 L Monocytes % (Manual) 11 H Myelocytes % (Man) 1 Platelet Estimate Adequate Sodium Potassium Chloride Carbon Dioxide Anion Gap BUN Creatinine Creat Clearance w eGFR Random Glucose Calcium Phosphorus Magnesium Total Bilirubin AST ALT Alkaline Phosphatase Total Protein Albumin Urine Color Urine Appearance Urine pH Ur Specific [place] Urine Protein Urine Glucose (UA) Urine Ketones Urine Blood Urine Nitrite Urine Bilirubin Urine Urobilinogen Ur Leukocyte Esterase Urine WBC (Auto) Urine RBC (Auto) Urine Casts (Auto) U Pathogenic Cast Auto U Epithel Cells (Auto) Urine Bacteria (Auto) Blood Type A POSITIVE A POSITIVE Antibody Screen Negative Negative Crossmatch See Detail See Detail 06/30/18 06/30/18 07/01/18 11:10 15:45 05:30 WBC 7.5 7.8 RBC 2.73 L 2.75 L Hgb 8.4 L 8.7 L Hct 24.8 L 24.6 L MCV 91.1 89.2 MCH 30.8 31.4 MCHC 33.9 35.2 RDW 14.4 14.4 Plt Count 195 214 MPV 8.4 8.0 Neutrophils % (Manual) Lymphocytes % (Manual) Monocytes % (Manual) Myelocytes % (Man) Platelet Estimate Sodium Potassium Chloride Carbon Dioxide Anion Gap BUN Creatinine Creat Clearance w eGFR Random Glucose Calcium Phosphorus Magnesium Total Bilirubin AST ALT Alkaline Phosphatase Total Protein Albumin Urine Color Yellow Urine Appearance Cloudy Urine pH 5.0 Ur Specific [place] 1.021 Urine Protein 1+ H Urine Glucose (UA) Negative Urine Ketones Negative Urine Blood Negative Urine Nitrite Negative Urine Bilirubin Negative Urine Urobilinogen 0.2 Ur Leukocyte Esterase Negative Urine WBC (Auto) 7 Urine RBC (Auto) 7.7 Urine Casts (Auto) 17 U Pathogenic Cast Auto None seen U Epithel Cells (Auto) 2.4 Urine Bacteria (Auto) 0.5 Blood Type Antibody Screen Crossmatch 07/01/18 05:30 WBC RBC Hgb Hct MCV MCH MCHC RDW Plt Count MPV Neutrophils % (Manual) Lymphocytes % (Manual) Monocytes % (Manual) Myelocytes % (Man) Platelet Estimate Sodium 140 Potassium 3.6 Chloride 106 Carbon Dioxide 28 Anion Gap 6 L BUN 27 H Creatinine 1.1 Creat Clearance w eGFR 66.37 Random Glucose 114 H Calcium 8.0 L Phosphorus 3.0 Magnesium 2.9 H Total Bilirubin 1.1 H AST 59 H ALT 43 Alkaline Phosphatase 117 Total Protein 5.9 L Albumin 2.3 L Urine Color Urine Appearance Urine pH Ur Specific [place] Urine Protein Urine Glucose (UA) Urine Ketones Urine Blood Urine Nitrite Urine Bilirubin Urine Urobilinogen Ur Leukocyte Esterase Urine WBC (Auto) Urine RBC (Auto) Urine Casts (Auto) U Pathogenic Cast Auto U Epithel Cells (Auto) Urine Bacteria (Auto) Blood Type Antibody Screen Crossmatch Active Medications Generic Name Dose Route Start Last Admin Trade Name Latrellq PRN Reason Stop Dose Admin Acetaminophen 1,000 mg 06/30/18 21:24 06/30/18 23:34 Ofirmev Injection - IVPB 1,000 mg Q6H PRN Administration FEVER Al Hydroxide/Mg Hydroxide 30 ml 06/25/18 14:49 Mylanta Oral Suspension - PO Q4H PRN DYSPEPSIA Chlorhexidine Gluconate 1 applic 06/27/18 22:00 06/30/18 23:35 Hibiclens For Decolonization - TP 1 applic HS [facility] Administration Finasteride 5 mg 06/25/18 22:00 06/30/18 23:34 Proscar - PO Not Given HS [facility] Sodium Chloride 1,000 mls @ 75 mls/hr 06/30/18 07:45 06/30/18 08:58 Normal Saline - IV 75 mls/hr ASDIR [facility] Administration Ceftriaxone Sodium 1 gm/ 50 mls @ 100 mls/hr 06/30/18 11:15 06/30/18 15:28 Dextrose IVPB 100 mls/hr DAILY [facility] Administration Magnesium Hydroxide 30 ml 06/25/18 14:49 Milk Of Magnesia - PO PRN PRN CONSTIPATION Metoprolol Succinate 50 mg 06/28/18 10:00 06/30/18 09:42 Toprol Xl - PO 50 mg DAILY [facility] Administration Multivitamins/Minerals/Vitamin C 1 tab 06/26/18 10:00 06/30/18 09:41 Tab-A-Vit - PO 1 tab DAILY [facility] Administration Mupirocin 1 applic 06/27/18 22:00 06/30/18 23:35 Bactroban Ointment (For Decolonization) - NS 07/02/18 21:59 1 applic BID [facility] Administration Ondansetron HCl 4 mg 06/30/18 17:51 Zofran Injection IVPUSH Q6H PRN NAUSEA AND/OR VOMITING Pantoprazole Sodium 40 mg 06/26/18 10:00 06/30/18 09:43 Protonix - PO 40 mg DAILY [facility] Administration Phenytoin Sodium 500 mg 06/30/18 23:45 07/01/18 00:00 Dilantin Injection - IVPB 500 mg HS [facility] Administration Polyethylene Glycol 17 gm 06/28/18 10:00 06/30/18 09:45 Miralax (For Daily Use) - PO Not Given DAILY [facility] Promethazine HCl 12.5 mg 06/30/18 17:51 Phenergan Injection - IVPUSH Q6H PRN NAUSEA-FOR RESCUE AFTER 15 MIN Senna/Docusate Sodium 1 tablet 06/25/18 22:00 06/30/18 21:18 Pericolace - PO Not Given BID [facility] Tamsulosin HCl 0.4 mg 06/25/18 22:00 06/30/18 23:35 Flomax - PO Not Given HS [facility] ASSESSMENT/PLAN: Patient is a 67 year-old male with a past medical history of hypertension, HLD, history of lower extremity on warfarin, seizure disorder, and osteoarthritis of the left knee. s/p b/l knee replacement (L knee replacement on 06/25) transferred from [facility] for acute intra-articular hemorrhage after a mechanical fall. Surgery s/p left total knee replacement. -continue pain medication -bowel regimen -PT when cleared by surgery -bowel regimen -surgery following Hematology Intra-articular hemorrhage of left knee s/p knee replacement with Dr. Langston s/p 2 units of prbc hmg/hct low stable ivc filter placed 06/30/18. on heparn tid for prophylaxis left pop vein DVT on sonogram, anticoagulation per orthopedic surgery hmg/hct stable. Neuro: Seizure history On Dilantin for history of seizures Card: Hypertension. controlled continue metoprolol 50mg daily, amlodopine 10mg daily, lisinopril 40mg daily, Echo LV normal, mild MR HLD. on statin Pulm Large left pleural effusion R/o Pneumonia on ceftriaxone pulmonary following General Morbid obesity Nutritional consult as an outpatient ID intermittent fevers, negative blood culture on emperic ceftriaxone chest xray shows large pleural effusion fen tolerating po monitor electrolytes prophy heparin tid Visit type - Emergency Visit Emergency Visit: Yes ED Registration Date: 06/25/18 Care time: The patient presented to the Emergency Department on the above date and was hospitalized for further evaluation of their emergent condition. - New Patient This patient is new to me today: Yes Date on this admission: 07/01/18 - Critical Care Critical Care patient: No - Discharge Referral Referred to [facility] Med P.C.: No
--- NOTE | 2018-07-01 09:26 | PN ---
Progress Note (short form) - Note Progress Note: POD#6 s/p IVC filter yesterday. 1 unit PRBCs given yesterday. Vital Signs Period Temp Pulse Resp BP Sys/Gee Pulse Ox Last 24 Hr 98.9 F-100.4 F 91-105 17-96 119-178/58-111 96-100 GEN: A&O x2 ABD: soft, non-distended LLE: foot warm, active ROM limited on the left. Ecchymosis to the posterior knee extending to the thigh. Dressing intact. Leg swollen. RLE: foot warm, right groin dry, no ecchymosis CBC, BMP /16/ 05:30 04/16/19 05:30 A/p: 67 yo male s/p Left knee TRK, POD# and POD#1 from IVC filter Pt was transfused 1 units of PRBC and H&H stable, continue to trend H&H daily Diet as tolerated, resumed regular diet Elevated LLE on pillow at all times D/w Dr. Evans
--- NOTE | 2018-07-01 09:40 | PN ---
Progress Note (short form) - Note Progress Note: s: confused. falling asleep during history. Current Medications Acetaminophen (Ofirmev Injection -) 1,000 mg IVPB Q6H PRN PRN Reason: FEVER Last Admin: 06/30/18 23:34 Dose: 1,000 mg Al Hydroxide/Mg Hydroxide (Mylanta Oral Suspension -) 30 ml PO Q4H PRN PRN Reason: DYSPEPSIA Chlorhexidine Gluconate (Hibiclens For Decolonization -) 1 applic TP HS [facility] Last Admin: 06/30/18 23:35 Dose: 1 applic Finasteride (Proscar -) 5 mg PO HS [facility] Last Admin: 06/30/18 23:34 Dose: Not Given Sodium Chloride (Normal Saline -) 1,000 mls @ 75 mls/hr IV ASDIR [facility] Last Admin: 06/30/18 08:58 Dose: 75 mls/hr Ceftriaxone Sodium 1 gm/ (Dextrose) 50 mls @ 100 mls/hr IVPB DAILY [facility] Last Admin: 06/30/18 15:28 Dose: 100 mls/hr Magnesium Hydroxide (Milk Of Magnesia -) 30 ml PO PRN PRN PRN Reason: CONSTIPATION Metoprolol Succinate (Toprol Xl -) 50 mg PO DAILY [facility] Last Admin: 06/30/18 09:42 Dose: 50 mg Multivitamins/Minerals/Vitamin C (Tab-A-Vit -) 1 tab PO DAILY [facility] Last Admin: 06/30/18 09:41 Dose: 1 tab Mupirocin (Bactroban Ointment (For Decolonization) -) 1 applic NS BID [facility] Stop: 07/02/18 21:59 Last Admin: 06/30/18 23:35 Dose: 1 applic Ondansetron HCl (Zofran Injection) 4 mg IVPUSH Q6H PRN PRN Reason: NAUSEA AND/OR VOMITING Pantoprazole Sodium (Protonix -) 40 mg PO DAILY [facility] Last Admin: 06/30/18 09:43 Dose: 40 mg Phenytoin Sodium (Dilantin Injection -) 500 mg IVPB HS [facility] Last Admin: 07/01/18 00:00 Dose: 500 mg Polyethylene Glycol (Miralax (For Daily Use) -) 17 gm PO DAILY [facility] Last Admin: 06/30/18 09:45 Dose: Not Given Promethazine HCl (Phenergan Injection -) 12.5 mg IVPUSH Q6H PRN PRN Reason: NAUSEA-FOR RESCUE AFTER 15 MIN Senna/Docusate Sodium (Pericolace -) 1 tablet PO BID [facility] Last Admin: 06/30/18 21:18 Dose: Not Given Tamsulosin HCl (Flomax -) 0.4 mg PO HS [facility] Last Admin: 06/30/18 23:35 Dose: Not Given Vital Signs Period Temp Pulse Resp BP Sys/Gee Pulse Ox Last 24 Hr 98.9 F-100.4 F 91-105 17-96 119-178/58-111 96-100 Constitutional: Yes: Well Nourished, No Distress, Calm Cardiovascular: Yes: Regular Rate and Rhythm, S1, S2. No: Gallop, Murmur Respiratory: Yes: Regular, CTA Bilaterally. No: Accessory Muscle Use, Rales Extremities: No: Cold Edema: No Neurological: Yes: Alert Psychiatric: No: Agitated tele: sinus tachycardia Assessment/Plan 67M h/o HTN, HLD, h/o DVT p/w tachycardia after total knee replacement tachycardia - no central PE on CTA - HRs likely sec to anemia--improved s/p PRBCs hypotension, CHAD: -cont fluids -blood transfusion support -bleeding w/u per ortho -BP improved s/p transfusion PRBC and holding amlodipine/KELSEA -renal fxn w/u per crit care -cont metoprolol as bp allows h/o VTEs, on residential warfarin: - subtherapeutic lovenox dose given preop as bridging - L pop vein DVT here on sonogram-AC per crit care in d/w orthopedic surgery - H/H stable--cont monitoring - w/u for bleeding per ortho/critical care if needed (as above) - s/p IVC filter 06/30 VTach: - stable overnight - Keep K>4 and Mg >2 - EF normal. - cont tele HTN - on toprol, lisinopril, amlodipine - holding home meds due to hypotension at times s/p L TKR - manage per ortho
[2018-07-01] MEDS: CEFTRIAXONE 1 GM in DEXTROSE 5%-WATER - 50 ML IVPB SCH (10:00)
[2018-07-01] MEDS ORDERED: PT OWN MED DRAWER 7, Y5N ONE (10:32)
[2018-07-01] MEDS: PANTOPRAZOLE 40 MG TABLET (FP) PO SCH (10:34)
[2018-07-01] MEDS: MULTIVITAMINS (DAILY MVI) TABLET (FP) PO SCH (10:34)
[2018-07-01] MEDS: SENNOSIDES/DOCUSATE COMBO (SENNA PLUS) TABLET (UD) PO SCH ×2 (10:35→21:44)
[2018-07-01] MEDS: POLYETHYLENE GLYCOL 3350 119 GM BTL PO SCH (10:35)
[2018-07-01] MEDS: MUPIROCIN 2% TOPICAL OINTMENT FOR DECOLONIZATION NS SCH ×2 (10:35→21:36)
[2018-07-01] MEDS ORDERED: DEXTROSE 5%-WATER - 50 ML IVPB ONE (10:45)
[2018-07-01] MEDS ORDERED: cefTRIAXone SODIUM 1 GM VIAL ONE (10:45)
--- NOTE | 2018-07-01 12:13 | PN ---
Teaching Attending Note Name of Resident: Janet Chance ATTENDING PHYSICIAN STATEMENT I saw and evaluated the patient. I reviewed the resident's note and discussed the case with the resident. I agree with the resident's findings and plan as documented. SUBJECTIVE: Pt seen and examined in the ICU. More alert, awake today. s/p IVC filter placement. Denies shortness of breath or chest pain. OBJECTIVE: Vital Signs Period Temp Pulse Resp BP Sys/Gee Pulse Ox Last 24 Hr 98.9 F-100.2 F 91-105 17-96 121-178/73-111 96-100 Intake & Output 06/28/18 06/29/18 06/30/18 07/01/18 23:59 23:59 23:59 23:59 Intake Total 1742 2620 Output Total 300 210 Balance -300 1742 2410 Weight 124.284 kg 125.5 kg 126.008 kg 123.559 kg Gen: more alert, awake Heart: RRR Lung: decreased breath sounds at the bases Abd: soft, nontender Ext: LLE edema, ecchymoses CBC, BMP 07/01/18 05:30 07/01/18 05:30 Active Medications Acetaminophen (Ofirmev Injection -) 1,000 mg IVPB Q6H PRN PRN Reason: FEVER Last Admin: 06/30/18 23:34 Dose: 1,000 mg Al Hydroxide/Mg Hydroxide (Mylanta Oral Suspension -) 30 ml PO Q4H PRN PRN Reason: DYSPEPSIA Chlorhexidine Gluconate (Hibiclens For Decolonization -) 1 applic TP HS [facility] Last Admin: 06/30/18 23:35 Dose: 1 applic Finasteride (Proscar -) 5 mg PO HS [facility] Last Admin: 06/30/18 23:34 Dose: Not Given Heparin Sodium (Porcine) (Heparin -) 5,000 unit SQ TID [facility] Sodium Chloride (Normal Saline -) 1,000 mls @ 75 mls/hr IV ASDIR [facility] Last Admin: 06/30/18 08:58 Dose: 75 mls/hr Ceftriaxone Sodium 1 gm/ (Dextrose) 50 mls @ 100 mls/hr IVPB DAILY [facility] Last Admin: 06/30/18 15:28 Dose: 100 mls/hr Magnesium Hydroxide (Milk Of Magnesia -) 30 ml PO PRN PRN PRN Reason: CONSTIPATION Metoprolol Succinate (Toprol Xl -) 50 mg PO DAILY [facility] Last Admin: 07/01/18 10:35 Dose: 50 mg Multivitamins/Minerals/Vitamin C (Tab-A-Vit -) 1 tab PO DAILY [facility] Last Admin: 07/01/18 10:34 Dose: 1 tab Mupirocin (Bactroban Ointment (For Decolonization) -) 1 applic NS BID [facility] Stop: 07/02/18 21:59 Last Admin: 07/01/18 10:35 Dose: 1 applic Ondansetron HCl (Zofran Injection) 4 mg IVPUSH Q6H PRN PRN Reason: NAUSEA AND/OR VOMITING Pantoprazole Sodium (Protonix -) 40 mg PO DAILY [facility] Last Admin: 07/01/18 10:34 Dose: 40 mg Phenytoin Sodium (Dilantin Injection -) 500 mg IVPB HS [facility] Last Admin: 07/01/18 00:00 Dose: 500 mg Polyethylene Glycol (Miralax (For Daily Use) -) 17 gm PO DAILY [facility] Last Admin: 07/01/18 10:35 Dose: Not Given Promethazine HCl (Phenergan Injection -) 12.5 mg IVPUSH Q6H PRN PRN Reason: NAUSEA-FOR RESCUE AFTER 15 MIN Senna/Docusate Sodium (Pericolace -) 1 tablet PO BID [facility] Last Admin: 07/01/18 10:35 Dose: 1 tablet Tamsulosin HCl (Flomax -) 0.4 mg PO HS [facility] Last Admin: 06/30/18 23:35 Dose: Not Given ASSESSMENT AND PLAN: s/p L TKR Acute LLE DVT s/p IVC filter Acute Blood Loss Anemia r/o Pneumonia Sepsis Acute Kidney Injury HTN Hyperlipidemia remote h/o R DVT - continue empiric antibiotics - f/u cultures - repeat CXR - hold anticoagulation - monitor H/H - transfuse as needed - pain control - aspiration precautions - can monitor on floor
[2018-07-01] MEDS: FUROSEMIDE 40 MG/4 ML INJECTABLE VIAL IVPUSH SCH (13:00)
[2018-07-01] MEDS: PHENYTOIN SODIUM 100 MG/2 ML VIAL IVPB SCH ×2 (13:29)
[2018-07-01] MEDS ORDERED: MAGNESIUM HYDROX 2400MG/30ML ORAL SUSPENSION 30 ML CUP PO PRN ×2 (13:58→14:08)
[2018-07-01] MEDS: HEPARIN NA (PORCINE) 5,000 UNITS/ML 1ML VIAL SQ SCH ×2 (14:00→21:42)
--- NOTE | 2018-07-01 15:05 | PN ---
Progress Note (short form) - Note Progress Note: Anesthesia POD#1 S/P IVC Filter Placement under MAC Still in the ICU,tachycardic,stable otherwise No complication to anesthesia seen Mandi Hayes MD.
--- NOTE | 2018-07-01 17:00 | PN ---
Progress Note (short form) - Note Progress Note: 67M s/p LEFT total knee replacement POD #6. Pt. s/p placement IVC filter last night d/t occlusive left femoral vein DVT. Pain well controlled. No acute events overnight. Pt. denies overnight history of headaches, chest pain, shortness of breath, nausea, vomiting, chills, & sweats. (+) [place]; (+) Flatus; (-) BM. In ICU bed. All labs and vitals reviewed. PE: AAO x 3, NAD. L-Knee: Dressing C/D/I. Leg diffusely swollen, but improving. Unable to bend knee due to left knee pain. NVI distally. A/P: 66F s/p LEFT total knee replacement POD #6. -Pain control. -DVT PPx: -Chemical: per ICU & medical hospitalist teams. -Mechanical: BARB's. -Incentive spirometry q15 min. -PT/OT/Rehab, OOB. -WBAT LLE. -Diet as tolerated. -Care per medical hospitalist team. -f/u [facility] [place] office within 7-10 days of hospital discharge; call for appointment; . -Discharge planning. -Will follow. Hilario Langston MD (Orthopaedic Surgery).
[2018-07-01] MEDS: SODIUM CHLORIDE 1,000 ML IV SCH (18:16)
[2018-07-01] MEDS: CHLORHEXIDINE GLUCONATE 4% CLEANSER FOR DECOLONIZATION TP SCH (21:36)
[2018-07-01] MEDS: FINASTERIDE 5 MG TABLET (FP) PO SCH (21:43)
[2018-07-01] MEDS: TAMSULOSIN HCL 0.4 MG CAP PO SCH (21:44)
[2018-07-01] MEDS ORDERED: MAG HYDROX/AL HYDROX/SIMETH 30 ML UNIT-DOSE CUP PO PRN (22:25)
[2018-07-01] MEDS ORDERED: TRANEXAMIC ACID 1000 MG/10 ML VIAL IVPUSH ONE (22:25)
[2018-07-01] MEDS ORDERED: ACETAMINOPHEN 1000 MG/100 ML VIAL (NON FORMULARY) IVPB PRN (22:25)
[2018-07-01] MEDS ORDERED: PROMETHAZINE HCL 25 MG/1 ML VIAL IVPUSH PRN (22:25)
[2018-07-01] MEDS ORDERED: CEFAZOLIN 2 GM in DEXTROSE 5%-WATER - 50 ML IVPB ONE (22:25)
[2018-07-01] MEDS ORDERED: ONDANSETRON 4 MG/2 ML VIAL IVPUSH PRN (22:25)
[2018-07-01] MEDS ORDERED: VANCOMYCIN 1,750 MG in DEXTROSE 5%-WATER - 500 ML IVPB ONE (22:25)
[2018-07-01] MEDS: PHENYTOIN SODIUM 250 MG/5 ML VIAL IVPB SCH (22:34)
[2018-07-02] MEDS: PHENYTOIN SODIUM 100 MG/2 ML VIAL IVPB SCH (01:43)
[2018-07-02] MEDS: HEPARIN NA (PORCINE) 5,000 UNITS/ML 1ML VIAL SQ SCH ×3 (05:35→22:30)
[2018-07-02 06:38] LABS: HEMATOCRIT 24.4 % (35.4-49); HEMOGLOBIN 8.3 GM/dL (11.7-16.9); MCH 30.8 pg (25.7-33.7); MEAN CELL VOLUME 90.6 fl (80-96); MEAN PLT VOLUME 8.1 fl (7.5-11.1); PLATELET COUNT 266 K/MM3 (134-434); RDW 14.6 % (11.9-15.9); WHITE BLOOD COUNT 8.7 K/mm3 (4.0-10.0)
[2018-07-02 06:45] LABS: INR 1.16 (0.83-1.09); PROTHROMBIN TIME (PATIENT) 13.7 SEC (9.7-13.0)
[2018-07-02 07:05] LABS: ALBUMIN 2.2 g/dl (3.4-5.0); ALK PHOS 136 U/L (45-117); ANION GAP 7 MMOL/L (8-16); BILIRUBIN,TOTAL 0.8 mg/dL (0.2-1); BLOOD UREA NITROGEN 23 mg/dL (7-18); CALCIUM 7.9 mg/dL (8.5-10.1); CHLORIDE 107 mmol/L (98-107); CO2 29 mmol/L (21-32); GLUCOSE,RANDOM 118 mg/dL (74-106); MAGNESIUM 2.5 mg/dL (1.8-2.4); PHOSPHOROUS 2.6 mg/dL (2.5-4.9); POTASSIUM 3.7 mmol/L (3.5-5.1); SGOT/AST 72 U/L (15-37); SGPT/ALT 63 U/L (13-61); SODIUM 142 mmol/L (136-145); TOT PROT 5.8 g/dl (6.4-8.2)
[2018-07-02] MEDS ORDERED: cefTRIAXone SODIUM 1 GM VIAL ONE (09:59)
[2018-07-02] MEDS ORDERED: DEXTROSE 5%-WATER - 50 ML IVPB ONE (09:59)
[2018-07-02] MEDS ORDERED: MUPIROCIN 2% TOPICAL OINTMENT FOR DECOLONIZATION NS SCH (10:00)
[2018-07-02] MEDS: CEFTRIAXONE 1 GM in DEXTROSE 5%-WATER - 50 ML IVPB SCH (10:03)
--- NOTE | 2018-07-02 12:06 | PN ---
Progress Note (short form) - Note Progress Note: PULMONARY Denies shortness of breath or chest pain. States LLE swelling slightly improved. Vital Signs Period Temp Pulse Resp BP Sys/Gee Pulse Ox Last 24 Hr 99 F-100.9 F 105-113 20-22 106-141/74-85 100 Gen: NAD at rest Heart: RRR Lung: decreased breath sounds at the bases Abd: soft, nontender Ext: LLE edema, ecchymoses CBC, BMP 07/02/18 05:30 07/02/18 05:30 Active Medications Acetaminophen (Ofirmev Injection -) 1,000 mg IVPB Q6H PRN PRN Reason: FEVER Al Hydroxide/Mg Hydroxide (Mylanta Oral Suspension -) 30 ml PO Q4H PRN PRN Reason: DYSPEPSIA Finasteride (Proscar -) 5 mg PO HS [facility] Furosemide (Lasix Injection -) 40 mg IVPUSH DAILY [facility] Last Admin: 07/01/18 13:00 Dose: 40 mg Heparin Sodium (Porcine) (Heparin -) 5,000 unit SQ TID [facility] Last Admin: 07/02/18 05:35 Dose: 5,000 unit Ceftriaxone Sodium 1 gm/ (Dextrose) 50 mls @ 100 mls/hr IVPB DAILY [facility] Last Admin: 07/02/18 10:03 Dose: 100 mls/hr Magnesium Hydroxide (Milk Of Magnesia -) 30 ml PO Q8H PRN PRN Reason: CONSTIPATION Metoprolol Succinate (Toprol Xl -) 50 mg PO DAILY [facility] Multivitamins/Minerals/Vitamin C (Tab-A-Vit -) 1 tab PO DAILY [facility] Ondansetron HCl (Zofran Injection) 4 mg IVPUSH Q6H PRN PRN Reason: NAUSEA AND/OR VOMITING Pantoprazole Sodium (Protonix -) 40 mg PO DAILY [facility] Phenytoin Sodium (Phenytoin Sodium) 500 mg IVPB HS [facility] Last Admin: 07/01/18 22:34 Dose: 500 mg Senna/Docusate Sodium (Pericolace -) 1 tablet PO BID [facility] Tamsulosin HCl (Flomax -) 0.4 mg PO HS [facility] A/P s/p L TKR Acute LLE DVT s/p IVC filter Acute Blood Loss Anemia r/o Pneumonia Sepsis Acute Kidney Injury HTN Hyperlipidemia remote h/o R DVT - complete empiric antibiotics - d/c anticoagulation - monitor H/H - transfuse as needed - pain control - aspiration precautions
[2018-07-02] MEDS: SENNOSIDES/DOCUSATE COMBO (SENNA PLUS) TABLET (UD) PO SCH ×2 (12:53→21:28)
[2018-07-02] MEDS: PANTOPRAZOLE 40 MG TABLET (FP) PO SCH (12:54)
[2018-07-02] MEDS: MULTIVITAMINS (DAILY MVI) TABLET (FP) PO SCH (12:54)
[2018-07-02] MEDS: FUROSEMIDE 40 MG/4 ML INJECTABLE VIAL IVPUSH SCH (12:54)
--- NOTE | 2018-07-02 15:20 | PN ---
Physical Exam: SUBJECTIVE: Patient seen and examined at the bedside. OBJECTIVE: Vital Signs Period Temp Pulse Resp BP Sys/Gee Pulse Ox Last 24 Hr 99.3 F-100.9 F 105-112 20-21 106-161/74-97 100 GENERAL: The patient is awake, alert, and fully oriented, in no acute distress. HEAD: Normal with no signs of trauma. EYES: PERRL, extraocular movements intact, LUNGS: Breath sounds equal, clear to auscultation bilaterally, no wheezes, no crackles, no accessory muscle use. HEART: Regular rate and rhythm, S1, S2 without murmur, rub or gallop. ABDOMEN: Soft, nontender, nondistended, normoactive bowel sounds, no guarding EXTREMITIES: 2+ pulses, warm R knee swollen and tender PSYCH: Normal mood, normal affect. SKIN: Warm, dry, normal turgor, no rashes or lesions noted Laboratory Results - last 24 hr 07/02/18 07/02/18 07/02/18 05:30 05:30 05:30 WBC 8.7 RBC 2.70 L Hgb 8.3 L Hct 24.4 L MCV 90.6 MCH 30.8 MCHC 34.0 RDW 14.6 Plt Count 266 D MPV 8.1 PT with INR 13.70 H INR 1.16 H Sodium 142 Potassium 3.7 Chloride 107 Carbon Dioxide 29 Anion Gap 7 L BUN 23 H Creatinine 1.0 Creat Clearance w eGFR 74.09 Random Glucose 118 H Calcium 7.9 L Phosphorus 2.6 Magnesium 2.5 H Total Bilirubin 0.8 AST 72 H ALT 63 H Alkaline Phosphatase 136 H Total Protein 5.8 L Albumin 2.2 L Active Medications Generic Name Dose Route Start Last Admin Trade Name Freq PRN Reason Stop Dose Admin Acetaminophen 1,000 mg 07/01/18 22:25 Ofirmev Injection - IVPB Q6H PRN FEVER Al Hydroxide/Mg Hydroxide 30 ml 07/01/18 22:25 Mylanta Oral Suspension - PO Q4H PRN DYSPEPSIA Finasteride 5 mg 07/02/18 22:00 Proscar - PO HS [facility] Furosemide 40 mg 07/01/18 12:45 07/02/18 12:54 Lasix Injection - IVPUSH 40 mg DAILY [facility] Administration Heparin Sodium (Porcine) 5,000 unit 07/01/18 14:00 07/02/18 13:36 Heparin - SQ 5,000 unit TID [facility] Administration Ceftriaxone Sodium 1 gm/ 50 mls @ 100 mls/hr 07/02/18 10:00 07/02/18 10:03 Dextrose IVPB 100 mls/hr DAILY [facility] Administration Magnesium Hydroxide 30 ml 07/01/18 14:08 Milk Of Magnesia - PO Q8H PRN CONSTIPATION Metoprolol Succinate 50 mg 07/02/18 10:00 07/02/18 12:54 Toprol Xl - PO 50 mg DAILY [facility] Administration Multivitamins/Minerals/Vitamin C 1 tab 07/02/18 10:00 07/02/18 12:54 Tab-A-Vit - PO 1 tab DAILY [facility] Administration Ondansetron HCl 4 mg 07/01/18 22:25 Zofran Injection IVPUSH Q6H PRN NAUSEA AND/OR VOMITING Pantoprazole Sodium 40 mg 07/02/18 10:00 07/02/18 12:54 Protonix - PO 40 mg DAILY [facility] Administration Phenytoin Sodium 500 mg 07/01/18 22:15 07/01/18 22:34 Phenytoin Sodium IVPB 500 mg HS [facility] Administration Senna/Docusate Sodium 1 tablet 07/02/18 10:00 07/02/18 12:53 Pericolace - PO 1 tablet BID [facility] Administration Tamsulosin HCl 0.4 mg 07/02/18 22:00 Flomax - PO HS [facility] ASSESSMENT/PLAN: Patient is a 67 year-old male with a past medical history of hypertension, HLD, 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 s/p b/l knee replacement (L knee replacement on 06/25) transferred from [facility] for acute intra-articular hemorrhage after a mechanical fall one day after surgery. Surgery s/p left total knee replacement. -continue pain medication -bowel regimen -PT as tolerated -bowel regimen Hematology Intra-articular hemorrhage of left knee s/p mechanical fall 1 day post op s/p knee replacement with Dr. Langston left pop vein DVT on sonogram s/p 2 units of prbc hmg/hct low stable ivc filter placed 06/30/18. on heparn tid for prophylaxis. hmg/hct stable. hematology consulted Neuro: Seizure history On Dilantin for history of seizures Card: Hypertension. controlled continue metoprolol 50mg daily, amlodopine 10mg daily, lisinopril 40mg daily, Echo LV normal, mild MR HLD. on statin Pulm Large left pleural effusion R/o Pneumonia on ceftriaxone pulmonary following General Morbid obesity Nutritional consult as an outpatient ID intermittent fevers, negative blood culture on emperic ceftriaxone chest xray shows large pleural effusion fen tolerating po monitor electrolytes prophy heparin tid Visit type - Emergency Visit Emergency Visit: Yes ED Registration Date: 06/25/18 Care time: The patient presented to the Emergency Department on the above date and was hospitalized for further evaluation of their emergent condition. - New Patient This patient is new to me today: No - Critical Care Critical Care patient: No - Discharge Referral Referred to [facility] Med P.C.: No
[2018-07-02] MEDS ORDERED: oxyCODONE HCL 5 MG TABLET PO PRN (16:30)
--- NOTE | 2018-07-02 17:03 | CONSULT ---
Consultation: REQUESTING PROVIDER: CONSULT REQUEST: We have been asked to medically evaluate this patient for ( specify). HISTORY OF PRESENT ILLNESS: 67 y/o M with PMH of HTN, HLD, RLE DVT (on coumadin), seizure d/o, OA of L knee (s/p knee replacement on 06/25/18), BPH currently hospitalized after his L knee replacement due to bleeding into his knee s/p fall and acute LLE DVT. Pt was on [facility] coumadin (10+ years) for RLE DVT but is unsure why he is on [facility] AC. He had L knee replacement 06/25/18 and was changed from his coumadin to lovenox 60mg BID (subtherapeutic dose) before surgery as per previous notes by his PCP Dr. Montgomery. He fell 06/26/18 and developed bleed into L knee. He was placed back on AC and had a drop in his Hgb and eventually IVC filter was placed on 06/30. He was found to have a LLE popliteal DVT on 06/27 by ultrasound. He currently is on heparin 5000 units sq tid and he states he feels fine currently. Denies any CP, SOB, LUU, LE pain, n/v/f/c. He does report constipation x2 days. Last colonoscopy was 3 years ago and was negative. Required 2 PRBCs during this admission so far. PMH: HTN, HLD, RLE DVT (on coumadin), seizure d/o, OA of L knee (s/p knee replacement on 06/25/18), BPH PSHx: R knee replacement 3 years ago. L knee replacement 06/25/18 SH: Denies smoking, drinking, drug use. 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 FH: Denies any cancer or bleeding/clotting disorders in his family. Allergies: NKDA REVIEW OF SYSTEMS: CONSTITUTIONAL: Absent: fever, chills HEENT: Absent: visual changes CARDIOVASCULAR: Absent: chest pain RESPIRATORY: Absent: cough, shortness of breath GASTROINTESTINAL: +constipation Absent: abdominal pain, nausea, vomiting GENITOURINARY: Absent: dysuria ENDOCRINE: Absent: unexplained weight loss NEUROLOGIC: Absent: headache PHYSICAL EXAMINATION Vital Signs - 24 hr 07/01/18 07/01/18 07/01/18 18:00 21:51 21:53 Temperature 100.9 F H Pulse Rate 111 H Respiratory 20 Rate Blood Pressure 130/84 130/75 O2 Sat by Pulse 100 Oximetry (%) 07/02/18 07/02/18 07/02/18 01:49 05:00 08:10 Temperature 99.4 F 99.9 F H 99.9 F H Pulse Rate 109 H 107 H 105 H Respiratory 20 20 20 Rate Blood Pressure 141/74 106/84 134/85 O2 Sat by Pulse Oximetry (%) 07/02/18 07/02/18 12:45 14:50 Temperature 99.3 F Pulse Rate 110 H 112 H Respiratory 20 Rate Blood Pressure 144/97 161/88 O2 Sat by Pulse Oximetry (%) GENERAL: Awake, alert, and fully oriented, in no acute distress. Slow to speak. EYES: Pupils equal, round and reactive to light,sclera anicteric, conjunctiva clear. EARS, NOSE, THROAT: Ears normal, nares patent NECK: Normal range of motion LUNGS: Breath sounds equal, clear to auscultation bilaterally. HEART: Tachycardic, normal S1 and S2 ABDOMEN: Soft, nontender, normoactive bowel sounds. LOWER EXTREMITIESwarm, well-perfused. No calf tenderness. L leg over knee and thigh with more fluid causing skin tightening compared to R. NEUROLOGICAL: Slow to speak. PSYCHIATRIC: Cooperative. Good eye contact. Appropriate mood and affect. SKIN: Warm, dry Laboratory Results - last 24 hr 07/02/18 07/02/18 07/02/18 05:30 05:30 05:30 WBC 8.7 RBC 2.70 L Hgb 8.3 L Hct 24.4 L MCV 90.6 MCH 30.8 MCHC 34.0 RDW 14.6 Plt Count 266 D MPV 8.1 PT with INR 13.70 H INR 1.16 H Sodium 142 Potassium 3.7 Chloride 107 Carbon Dioxide 29 Anion Gap 7 L BUN 23 H Creatinine 1.0 Creat Clearance w eGFR 74.09 Random Glucose 118 H Calcium 7.9 L Phosphorus 2.6 Magnesium 2.5 H Total Bilirubin 0.8 AST 72 H ALT 63 H Alkaline Phosphatase 136 H Total Protein 5.8 L Albumin 2.2 L Active Medications Generic Name Dose Route Start Last Admin Trade Name Freq PRN Reason Stop Dose Admin Acetaminophen 1,000 mg 07/01/18 22:25 Ofirmev Injection - IVPB Q6H PRN FEVER Al Hydroxide/Mg Hydroxide 30 ml 07/01/18 22:25 Mylanta Oral Suspension - PO Q4H PRN DYSPEPSIA Finasteride 5 mg 07/02/18 22:00 Proscar - PO HS [facility] Furosemide 40 mg 07/01/18 12:45 07/02/18 12:54 Lasix Injection - IVPUSH 40 mg DAILY [facility] Administration Heparin Sodium (Porcine) 5,000 unit 07/01/18 14:00 07/02/18 13:36 Heparin - SQ 5,000 unit TID [facility] Administration Ceftriaxone Sodium 1 gm/ 50 mls @ 100 mls/hr 07/02/18 10:00 07/02/18 10:03 Dextrose IVPB 100 mls/hr DAILY [facility] Administration Magnesium Hydroxide 30 ml 07/01/18 14:08 Milk Of Magnesia - PO Q8H PRN CONSTIPATION Metoprolol Succinate 50 mg 07/02/18 10:00 07/02/18 12:54 Toprol Xl - PO 50 mg DAILY [facility] Administration Multivitamins/Minerals/Vitamin C 1 tab 07/02/18 10:00 07/02/18 12:54 Tab-A-Vit - PO 1 tab DAILY [facility] Administration Ondansetron HCl 4 mg 07/01/18 22:25 Zofran Injection IVPUSH Q6H PRN NAUSEA AND/OR VOMITING Oxycodone HCl 5 mg 07/02/18 16:30 Roxicodone - PO Q6H PRN PAIN LEVEL 7 - 10 Pantoprazole Sodium 40 mg 07/02/18 10:00 07/02/18 12:54 Protonix - PO 40 mg DAILY [facility] Administration Phenytoin Sodium 500 mg 07/01/18 22:15 07/01/18 22:34 Phenytoin Sodium IVPB 500 mg HS [facility] Administration Senna/Docusate Sodium 1 tablet 07/02/18 10:00 07/02/18 12:53 Pericolace - PO 1 tablet BID [facility] Administration Tamsulosin HCl 0.4 mg 07/02/18 22:00 Flomax - PO HS [facility] ASSESSMENT/PLAN: 67 y/o M with PMH of HTN, HLD, RLE DVT (on coumadin), seizure d/o, OA of L knee (s/p knee replacement on 06/25/18), BPH currently hospitalized after his L knee replacement due to bleeding into his knee s/p fall and acute LLE DVT. -LLE Acute DVT -Hx of RLE DVT -s/p L knee replacement -s/p fall -Anemia -Will check Factor 5 leiden, prothrombin gene, lupus anticoag, beta2 glycoprotein, anticardiolipin, homocystine, MTHFR for thrombophilia work up. -Will need to contact Dr. James Montgomery for further information on why he is on [facility] AC and for further assessment on requiring AC for 3-[address] Montgomery: [phone] -If no contraindications from ortho perspective would recommend starting patient on full dose anticoagulation for acute LLE DVT. NoAC not recommended due to weight. -Monitor CBC/ H/H Dispo: We will continue to follow the patient. Thank you for this consultative opportunity. Visit type - Emergency Visit Emergency Visit: Yes ED Registration Date: 06/25/18 Care time: The patient presented to the Emergency Department on the above date and was hospitalized for further evaluation of their emergent condition. - New Patient This patient is new to me today: Yes Date on this admission: 07/02/18 - Critical Care Critical Care patient: No
--- NOTE | 2018-07-02 17:06 | PN ---
Teaching Attending Note Name of Resident: Bert Evans ATTENDING PHYSICIAN STATEMENT I saw and evaluated the patient. I reviewed the resident's note and discussed the case with the resident. I agree with the resident's findings and plan as documented. SUBJECTIVE: Patient seen and examined Patient with history of a/c with coumadin dating back years. Patient states he had a DVT at that time. He does not recall the details . Patient was taken off coumadin and placed on lovenox at a dose of 60 mg BID( subtherapeutic for patients weight) Surgery -06/25 , Popliteal DVT on 06/27. on 06/30 IVC filter. In interim had fallen on 06/26 with trauma to left knee with hemarthrosis. Has received 2 units of packed cells to date ( 06/27 and 06/30) Last Vital Signs Temp Pulse Resp BP Pulse Ox 99.3 F 112 H 20 161/88 100 07/02/18 14:50 07/02/18 14:50 07/02/18 14:50 07/02/18 14:50 07/01/18 21:53 HEENT: MASSIEL, EOM Intact Oropharynx: No thrush, No mucositis Neck: Supple Nodes: Without adenopathy Cor: RSR, No murmurs, No gallops Lungs: diminished breath sounds Abd: Soft, Normal bowel sounds, No organomegaly Ext:swelling and tense medial left proximal thigh Skin: No rashes, Integument intact Hammond catheter CBC, BMP 07/02/18 05:30 07/02/18 05:30 Current Medications Generic Name Dose Route Start Last Admin Trade Name Freq PRN Reason Stop Dose Admin Acetaminophen 1,000 mg 07/01/18 22:25 Ofirmev Injection - IVPB Q6H PRN FEVER Al Hydroxide/Mg Hydroxide 30 ml 07/01/18 22:25 Mylanta Oral Suspension - PO Q4H PRN DYSPEPSIA Finasteride 5 mg 07/02/18 22:00 Proscar - PO HS [facility] Furosemide 40 mg 07/01/18 12:45 07/02/18 12:54 Lasix Injection - IVPUSH 40 mg DAILY [facility] Administration Heparin Sodium (Porcine) 5,000 unit 07/01/18 14:00 07/02/18 13:36 Heparin - SQ 5,000 unit TID [facility] Administration Ceftriaxone Sodium 1 gm/ 50 mls @ 100 mls/hr 07/02/18 10:00 07/02/18 10:03 Dextrose IVPB 100 mls/hr DAILY [facility] Administration Magnesium Hydroxide 30 ml 07/01/18 14:08 Milk Of Magnesia - PO Q8H PRN CONSTIPATION Metoprolol Succinate 50 mg 07/02/18 10:00 07/02/18 12:54 Toprol Xl - PO 50 mg DAILY [facility] Administration Multivitamins/Minerals/Vitamin C 1 tab 07/02/18 10:00 07/02/18 12:54 Tab-A-Vit - PO 1 tab DAILY [facility] Administration Ondansetron HCl 4 mg 07/01/18 22:25 Zofran Injection IVPUSH Q6H PRN NAUSEA AND/OR VOMITING Oxycodone HCl 5 mg 07/02/18 16:30 Roxicodone - PO Q6H PRN PAIN LEVEL 7 - 10 Pantoprazole Sodium 40 mg 07/02/18 10:00 07/02/18 12:54 Protonix - PO 40 mg DAILY [facility] Administration Phenytoin Sodium 500 mg 07/01/18 22:15 07/01/18 22:34 Phenytoin Sodium IVPB 500 mg HS [facility] Administration Senna/Docusate Sodium 1 tablet 07/02/18 10:00 07/02/18 12:53 Pericolace - PO 1 tablet BID [facility] Administration Tamsulosin HCl 0.4 mg 07/02/18 22:00 Flomax - PO HS [facility] Impression: DVT post op while previously on subtherapeutic lovenox therapy. Prior history of custodial a/c on coumadin. s/p IVC filter patient will require minimum of 3-6 months of full dose a/c . In view of weight , DOAC would not be recommended. Duration of therapy will depend upon details of prior necessity for coumadin..May in fact need indefinite a/c. Will need to get clearance from ortho when to institute full dose a/c. Will need to get details from PCP of prior DVT and necessity of oysterman a/c. Will do screening thrombophilia work up , although Protein C,S, and ATIII levels will be deferred as they can be affected by current anticoagulation. OBJECTIVE: ASSESSMENT AND PLAN:
[2018-07-02] MEDS ORDERED: PT OWN MED DRAWER 7, Y5N ONE (21:12)
[2018-07-02] MEDS: TAMSULOSIN HCL 0.4 MG CAP PO SCH (21:27)
[2018-07-02] MEDS: FINASTERIDE 5 MG TABLET (FP) PO SCH (21:27)
[2018-07-02] MEDS: PHENYTOIN SODIUM 250 MG/5 ML VIAL IVPB SCH (21:28)
[2018-07-02] MEDS ORDERED: CHLORHEXIDINE GLUCONATE 4% CLEANSER FOR DECOLONIZATION TP SCH (22:00)
[2018-07-03] MEDS: HEPARIN NA (PORCINE) 5,000 UNITS/ML 1ML VIAL SQ SCH ×3 (05:46→22:07)
[2018-07-03 06:55] LABS: BASO % 0.9 % (0-2.0); EOS % 2.2 % (0-4.5); HEMATOCRIT 22.2 % (35.4-49); HEMOGLOBIN 7.7 GM/dL (11.7-16.9); LYMPH % 17.3 % (8-40); MCHC 34.7 g/dl (32.0-35.9); MEAN CELL VOLUME 89.4 fl (80-96); MEAN PLT VOLUME 7.6 fl (7.5-11.1); MONO % 13.4 % (3.8-10.2); NEUT % 66.2 % (42.8-82.8); PLATELET COUNT 284 K/MM3 (134-434); RBC 2.48 M/mm3 (4.00-5.60); RDW 14.4 % (11.9-15.9); WHITE BLOOD COUNT 8.9 K/mm3 (4.0-10.0)
[2018-07-03 07:19] LABS: ALBUMIN 2.1 g/dl (3.4-5.0); ALK PHOS 130 U/L (45-117); ANION GAP 6 MMOL/L (8-16); BILIRUBIN,TOTAL 0.7 mg/dL (0.2-1); BLOOD UREA NITROGEN 22 mg/dL (7-18); CALCIUM 7.5 mg/dL (8.5-10.1); CHLORIDE 106 mmol/L (98-107); CO2 29 mmol/L (21-32); GLUCOSE,RANDOM 117 mg/dL (74-106); POTASSIUM 3.5 mmol/L (3.5-5.1); SGOT/AST 96 U/L (15-37); SGPT/ALT 90 U/L (13-61); SODIUM 141 mmol/L (136-145); TOT PROT 5.5 g/dl (6.4-8.2)
[2018-07-03] MEDS: LISINOPRIL 20 MG TABLET (FP) PO SCH (07:20)
[2018-07-03] MEDS ORDERED: cefTRIAXone SODIUM 1 GM VIAL ONE (09:15)
[2018-07-03] MEDS ORDERED: DEXTROSE 5%-WATER - 50 ML IVPB ONE (09:15)
[2018-07-03] MEDS: MULTIVITAMINS (DAILY MVI) TABLET (FP) PO SCH (09:18)
[2018-07-03] MEDS: SENNOSIDES/DOCUSATE COMBO (SENNA PLUS) TABLET (UD) PO SCH ×2 (09:18→22:07)
[2018-07-03] MEDS: PANTOPRAZOLE 40 MG TABLET (FP) PO SCH (09:18)
[2018-07-03] MEDS: FUROSEMIDE 40 MG/4 ML INJECTABLE VIAL IVPUSH SCH (09:18)
[2018-07-03] MEDS: CEFTRIAXONE 1 GM in DEXTROSE 5%-WATER - 50 ML IVPB SCH (09:19)
--- NOTE | 2018-07-03 09:55 | PN ---
Progress Note (short form) - Note Progress Note: Denies shortness of breath or chest pain. Improving LLE swelling. Intake & Output 06/30/18 07/01/18 07/02/18 07/03/18 23:59 23:59 23:59 23:59 Intake Total 2620 350 Output Total 210 2200 300 Balance 2410 -1850 -300 Weight 277 lb 12.8 oz 272 lb 6.4 oz 272 lb 1 oz 267 lb 6.4 oz Last Vital Signs Temp Pulse Resp BP Pulse Ox 99.0 F 109 H 20 143/83 100 07/03/18 06:00 07/03/18 06:00 07/03/18 06:00 07/03/18 06:00 07/02/18 21:00 Active Medications Acetaminophen (Ofirmev Injection -) 1,000 mg IVPB Q6H PRN PRN Reason: FEVER Al Hydroxide/Mg Hydroxide (Mylanta Oral Suspension -) 30 ml PO Q4H PRN PRN Reason: DYSPEPSIA Finasteride (Proscar -) [address] [facility] Last Admin: 07/02/18 21:27 Dose: 5 mg Furosemide (Lasix Injection -) 40 mg IVPUSH DAILY [facility] Last Admin: 07/03/18 09:18 Dose: 40 mg Heparin Sodium (Porcine) (Heparin -) 5,000 unit SQ TID [facility] Last Admin: 07/03/18 05:46 Dose: 5,000 unit Ceftriaxone Sodium 1 gm/ (Dextrose) 50 mls @ 100 mls/hr IVPB DAILY [facility] Last Admin: 07/03/18 09:19 Dose: 100 mls/hr Magnesium Hydroxide (Milk Of Magnesia -) 30 ml PO Q8H PRN PRN Reason: CONSTIPATION Metoprolol Succinate (Toprol Xl -) 50 mg PO DAILY [facility] Last Admin: 07/03/18 09:18 Dose: 50 mg Multivitamins/Minerals/Vitamin C (Tab-A-Vit -) 1 tab PO DAILY [facility] Last Admin: 07/03/18 09:18 Dose: 1 tab Ondansetron HCl (Zofran Injection) 4 mg IVPUSH Q6H PRN PRN Reason: NAUSEA AND/OR VOMITING Oxycodone HCl (Roxicodone -) 5 mg PO Q6H PRN PRN Reason: PAIN LEVEL 7 - 10 Pantoprazole Sodium (Protonix -) 40 mg PO DAILY [facility] Last Admin: 07/03/18 09:18 Dose: 40 mg Phenytoin Sodium (Phenytoin Sodium) [address] [facility] Last Admin: 07/02/18 21:28 Dose: 500 mg Senna/Docusate Sodium (Pericolace -) 1 tablet PO BID [facility] Last Admin: 07/03/18 09:18 Dose: 1 tablet Tamsulosin HCl (Flomax -) 0.[address] [facility] Last Admin: 07/02/18 21:27 Dose: 0.4 mg Gen: NAD at rest Heart: RRR Lung: decreased breath sounds at the bases Abd: soft, nontender Ext: LLE edema, ecchymoses Laboratory Results - last 24 hr 07/03/18 07/03/18 05:30 05:30 WBC 8.9 RBC 2.48 L Hgb 7.7 L Hct 22.2 L MCV 89.4 MCH 31.0 MCHC 34.7 RDW 14.4 Plt Count 284 MPV 7.6 Absolute Neuts (auto) 5.9 Neutrophils % 66.2 Lymphocytes % 17.3 Monocytes % 13.4 H Eosinophils % 2.2 Basophils % 0.9 Nucleated RBC % 1 H Sodium 141 Potassium 3.5 Chloride 106 Carbon Dioxide 29 Anion Gap 6 L BUN 22 H Creatinine 1.0 Creat Clearance w eGFR 74.09 Random Glucose 117 H Calcium 7.5 L Total Bilirubin 0.7 AST 96 H ALT 90 H Alkaline Phosphatase 130 H Total Protein 5.5 L Albumin 2.1 L IMP: s/p L TKR Acute LLE DVT s/p IVC filter Acute Blood Loss Anemia r/o Pneumonia Sepsis Acute Kidney Injury HTN Hyperlipidemia remote h/o R DVT - complete empiric antibiotics - AC per Heme/Onc - Normal transfusion thresholds - pain control - aspiration precautions Dr Bergman
--- NOTE | 2018-07-03 10:47 | PN ---
Progress Note (short form) - Note Progress Note: POD 8, s/p L TKR, POD 3, s/p IVC filter placement Pt seen and examined. States he is doing "okay". Pain is controlled with current regimen. Was oob with PT yesterday, ambulated 6 feet. Tolerating PO, voidign without issue. Denies cp/sob, n/v/d. Vital Signs Temp 98.5 F 07/03/18 09:00 Pulse 109 H 07/03/18 10:42 Resp 18 07/03/18 09:00 BP 126/79 07/03/18 10:42 Pulse Ox 100 07/02/18 21:00 Intake & Output 07/02/18 07/02/18 07/03/18 11:59 23:59 11:59 Intake Total 350 Output Total 300 1900 300 Balance -300 -1550 -300 Weight 272 lb 1 oz 267 lb 6.4 oz Intake: IVPB 50 Oral 300 Output: Urine 300 1900 300 Hammond 300 1900 300 Other: Voiding Method Indwelling Catheter Bowel Movement Yes No Yes: loose # Bowel Movements 1 2 Weight Measurement Method [facility], BMP 07/03/18 05:30 07/03/18 05:30 GEN: A&O x2 ABD: soft, non-distended LLE: LLE with dressing intact, minimal dried bleeding noted. Calf and thigh full but soft and compressible. +TTP at areas of ecchymosis (L inner distal thigh). 4+/5 dorsi/plantar flexion b/l les. SILT b/l. RLE: foot warm, no ecchymosis Vasc: Palpable dp b/l A/p: 67 yo male w/ PMHx HTN, HLD, h/o DVT lower extremity on warfarin x 15 years , seizure disorder, and osteoarthritis, now POD 8, s/p L TKR, c/b intra- articular bleed/L pop DVT now POD 3, s/p IVC filter placement Last transfusion 06/30 (1 unit pRBCs), h/h drifting down, 7.7/22.2 today from 8.3 /24.4 prior Hematology on board -Trend h/h, transfuse prn -OOb with PT -Elevate lle on pillow at all times while pt in bed (at the level of the heart) d/w attending Dr Langston
--- NOTE | 2018-07-03 11:07 | PN ---
Physical Exam: SUBJECTIVE: Patient seen and examined at bedside. No new complaints. OBJECTIVE: Vital Signs Period Temp Pulse Resp BP Sys/Gee Pulse Ox Last 24 Hr 98.1 F-99.3 F 109-112 18-20 114-161/74-97 100 GENERAL: Awake, alert, and fully oriented, in no acute distress. Slow to speak. EYES: Pupils equal, round and reactive to light,sclera anicteric, conjunctiva clear. EARS, NOSE, THROAT: Ears normal, nares patent NECK: Normal range of motion LUNGS: Breath sounds equal, clear to auscultation bilaterally. HEART: Tachycardic, normal S1 and S2 ABDOMEN: Soft, nontender, normoactive bowel sounds. LOWER EXTREMITIES: L tibial region with redness and warmth. Nontender. NEUROLOGICAL: Slow to speak. PSYCHIATRIC: Cooperative. Good eye contact. Appropriate mood and affect. SKIN: Warm, dry Laboratory Results - last 24 hr 07/03/18 07/03/18 05:30 05:30 WBC 8.9 RBC 2.48 L Hgb 7.7 L Hct 22.2 L MCV 89.4 MCH 31.0 MCHC 34.7 RDW 14.4 Plt Count 284 MPV 7.6 Absolute Neuts (auto) 5.9 Neutrophils % 66.2 Lymphocytes % 17.3 Monocytes % 13.4 H Eosinophils % 2.2 Basophils % 0.9 Nucleated RBC % 1 H Sodium 141 Potassium 3.5 Chloride 106 Carbon Dioxide 29 Anion Gap 6 L BUN 22 H Creatinine 1.0 Creat Clearance w eGFR 74.09 Random Glucose 117 H Calcium 7.5 L Total Bilirubin 0.7 AST 96 H ALT 90 H Alkaline Phosphatase 130 H Total Protein 5.5 L Albumin 2.1 L Active Medications Generic Name Dose Route Start Last Admin Trade Name Freq PRN Reason Stop Dose Admin Acetaminophen 1,000 mg 07/01/18 22:25 Ofirmev Injection - IVPB Q6H PRN FEVER Al Hydroxide/Mg Hydroxide 30 ml 07/01/18 22:25 Mylanta Oral Suspension - PO Q4H PRN DYSPEPSIA Finasteride 5 mg 07/02/18 22:00 07/02/18 21:27 Proscar - PO 5 mg HS [facility] Administration Furosemide 40 mg 07/01/18 12:45 07/03/18 09:18 Lasix Injection - IVPUSH 40 mg DAILY [facility] Administration Heparin Sodium (Porcine) 5,000 unit 07/01/18 14:00 07/03/18 05:46 Heparin - SQ 5,000 unit TID [facility] Administration Ceftriaxone Sodium 1 gm/ 50 mls @ 100 mls/hr 07/02/18 10:00 07/03/18 09:19 Dextrose IVPB 100 mls/hr DAILY [facility] Administration Magnesium Hydroxide 30 ml 07/01/18 14:08 Milk Of Magnesia - PO Q8H PRN CONSTIPATION Metoprolol Succinate 50 mg 07/02/18 10:00 07/03/18 09:18 Toprol Xl - PO 50 mg DAILY [facility] Administration Multivitamins/Minerals/Vitamin C 1 tab 07/02/18 10:00 07/03/18 09:18 Tab-A-Vit - PO 1 tab DAILY [facility] Administration Ondansetron HCl 4 mg 07/01/18 22:25 Zofran Injection IVPUSH Q6H PRN NAUSEA AND/OR VOMITING Oxycodone HCl 5 mg 07/02/18 16:30 Roxicodone - PO Q6H PRN PAIN LEVEL 7 - 10 Pantoprazole Sodium 40 mg 07/02/18 10:00 07/03/18 09:18 Protonix - PO 40 mg DAILY [facility] Administration Phenytoin Sodium 500 mg 07/01/18 22:15 07/02/18 21:28 Phenytoin Sodium IVPB 500 mg HS [facility] Administration Senna/Docusate Sodium 1 tablet 07/02/18 10:00 07/03/18 09:18 Pericolace - PO 1 tablet BID [facility] Administration Tamsulosin HCl 0.4 mg 07/02/18 22:00 07/02/18 21:27 Flomax - PO 0.4 mg HS [facility] Administration ASSESSMENT/PLAN: 67 y/o M with PMH of HTN, HLD, RLE DVT (on coumadin), seizure d/o, OA of L knee (s/p knee replacement on 06/25/18), BPH currently hospitalized after his L knee replacement due to bleeding into his knee s/p fall and acute LLE DVT. -LLE Acute DVT -Hx of RLE DVT -s/p L knee replacement -s/p fall -Anemia Plan -Will check Factor 5 leiden, prothrombin gene, lupus anticoag, beta2 glycoprotein, anticardiolipin, homocystine, MTHFR for thrombophilia work up. -Lab work still pending -Repeat U/S of LE with warmth and erythema of LLE -Will need to contact Dr. James Montgomery for further information on why he is on long-term AC and for further assessment on requiring AC for 3-[address] months [address] Montgomery: [phone] -Called Dr. Montgomery's office today but no answer on line. -If no contraindications from ortho perspective would recommend starting patient on full dose anticoagulation for acute LLE DVT. NoAC not recommended due to weight. -Hgb downtrending (7.7 today), continue to follow. No obvious signs of bleed currently. Transfuse if Hgb <7. -Repeat CBC in afternoon Visit type - Emergency Visit Emergency Visit: Yes ED Registration Date: 06/25/18 Care time: The patient presented to the Emergency Department on the above date and was hospitalized for further evaluation of their emergent condition. - New Patient This patient is new to me today: No - Critical Care Critical Care patient: No
--- NOTE | 2018-07-03 15:47 | PN ---
Progress Note (short form) - Note Progress Note: s: no chest pain, palps, dizziness, lightheadedness Current Medications Acetaminophen (Ofirmev Injection -) 1,000 mg IVPB Q6H PRN PRN Reason: FEVER Al Hydroxide/Mg Hydroxide (Mylanta Oral Suspension -) 30 ml PO Q4H PRN PRN Reason: DYSPEPSIA Finasteride (Proscar -) 5 mg PO HS [facility] Last Admin: 07/02/18 21:27 Dose: 5 mg Furosemide (Lasix Injection -) 40 mg IVPUSH DAILY [facility] Last Admin: 07/03/18 09:18 Dose: 40 mg Heparin Sodium (Porcine) (Heparin -) 5,000 unit SQ TID [facility] Last Admin: 07/03/18 15:08 Dose: 5,000 unit Ceftriaxone Sodium 1 gm/ (Dextrose) 50 mls @ 100 mls/hr IVPB DAILY [facility] Last Admin: 07/03/18 09:19 Dose: 100 mls/hr Magnesium Hydroxide (Milk Of Magnesia -) 30 ml PO Q8H PRN PRN Reason: CONSTIPATION Metoprolol Succinate (Toprol Xl -) 50 mg PO DAILY [facility] Last Admin: 07/03/18 09:18 Dose: 50 mg Multivitamins/Minerals/Vitamin C (Tab-A-Vit -) 1 tab PO DAILY [facility] Last Admin: 07/03/18 09:18 Dose: 1 tab Ondansetron HCl (Zofran Injection) 4 mg IVPUSH Q6H PRN PRN Reason: NAUSEA AND/OR VOMITING Oxycodone HCl (Roxicodone -) 5 mg PO Q6H PRN PRN Reason: PAIN LEVEL 7 - 10 Pantoprazole Sodium (Protonix -) 40 mg PO DAILY [facility] Last Admin: 07/03/18 09:18 Dose: 40 mg Phenytoin Sodium (Phenytoin Sodium) 500 mg IVPB HS [facility] Last Admin: 07/02/18 21:28 Dose: 500 mg Senna/Docusate Sodium (Pericolace -) 1 tablet PO BID [facility] Last Admin: 07/03/18 09:18 Dose: 1 tablet Tamsulosin HCl (Flomax -) 0.4 mg PO HS [facility] Last Admin: 07/02/18 21:27 Dose: 0.4 mg Vital Signs Period Temp Pulse Resp BP Sys/Gee Pulse Ox Last 24 Hr 98.1 F-99.0 F 109-111 18-20 110-145/58-91 100-100 Constitutional: Yes: Well Nourished, No Distress, Calm Cardiovascular: Yes: Regular Rate and Rhythm, S1, S2. No: Gallop, Murmur Respiratory: Yes: Regular, CTA Bilaterally. No: Accessory Muscle Use, Rales Extremities: No: Cold Edema: No Neurological: Yes: Alert Psychiatric: No: Agitated tele: sinus tachycardia Assessment/Plan 67M h/o HTN, HLD, h/o DVT p/w tachycardia after total knee replacement tachycardia - no central PE on CTA - HRs likely sec to anemia- stable now after PRBC hypotension, CHAD: -improved after IVF, PRBC -holding amlodipine/KELSEA -cont metoprolol as bp allows h/o VTEs, on nursing home warfarin: - subtherapeutic lovenox dose given preop as bridging - L pop vein DVT here on sonogram - H/H stable--cont monitoring - s/p IVC filter 06/30 - AC management per heme pleural effusion - on IV lasix, continue - Cr stable, weight down, resp status stable on room air VTach: - Keep K>4 and Mg >2 - EF normal HTN - on toprol, lisinopril, amlodipine - holding home lisinopril and amlodipine due to hypotension at times, stable with metoprolol s/p L TKR - manage per ortho
--- NOTE | 2018-07-03 16:30 | PN ---
Physical Exam: SUBJECTIVE: Patient seen and examined at the bedside. OBJECTIVE: noted to have some erythema on left leg below the surgical site, warm to touch no fevers, no wbc. vascular doppler shows left popliteal dvt heme consulted for possible restart a/c, Lovenox bridge to coumadin ivc filter on 06/30/18 placed Vital Signs Period Temp Pulse Resp BP Sys/Gee Pulse Ox Last 24 Hr 98.1 F-99.0 F 109-111 18-20 110-145/58-91 100-100 GENERAL: The patient is awake, alert, and fully oriented, in no acute distress. HEAD: Normal with no signs of trauma. EYES: PERRL, extraocular movements intact, LUNGS: Breath sounds equal, clear to auscultation bilaterally, no wheezes, no crackles, no accessory muscle use. HEART: Regular rate and rhythm, S1, S2 without murmur, rub or gallop. ABDOMEN: Soft, nontender, nondistended, normoactive bowel sounds, no guarding EXTREMITIES: 2+ pulses, warm left knee swollen and tender, mild erythema below left knee below surgical site. warm to touch. PSYCH: Normal mood, normal affect. SKIN: mild erythema below left knee below surgical site. warm to touch. Laboratory Results - last 24 hr 06/30/18 07/03/18 07/03/18 08:57 05:30 05:30 WBC 8.9 RBC 2.48 L Hgb 7.7 L Hct 22.2 L MCV 89.4 MCH 31.0 MCHC 34.7 RDW 14.4 Plt Count 284 MPV 7.6 Absolute Neuts (auto) 5.9 Neutrophils % 66.2 Lymphocytes % 17.3 Monocytes % 13.4 H Eosinophils % 2.2 Basophils % 0.9 Nucleated RBC % 1 H Sodium 141 Potassium 3.5 Chloride 106 Carbon Dioxide 29 Anion Gap 6 L BUN 22 H Creatinine 1.0 Creat Clearance w eGFR 74.09 Random Glucose 117 H Calcium 7.5 L Total Bilirubin 0.7 AST 96 H ALT 90 H Alkaline Phosphatase 130 H Total Protein 5.5 L Albumin 2.1 L Blood Type A POSITIVE Antibody Screen Negative Crossmatch See Detail Active Medications Generic Name Dose Route Start Last Admin Trade Name Freq PRN Reason Stop Dose Admin Acetaminophen 1,000 mg 07/01/18 22:25 Ofirmev Injection - IVPB Q6H PRN FEVER Al Hydroxide/Mg Hydroxide 30 ml 07/01/18 22:25 Mylanta Oral Suspension - PO Q4H PRN DYSPEPSIA Finasteride 5 mg 07/02/18 22:00 07/02/18 21:27 Proscar - PO 5 mg HS FERNANDA Administration Furosemide 40 mg 07/01/18 12:45 07/03/18 09:18 Lasix Injection - IVPUSH 40 mg DAILY FERNANDA Administration Heparin Sodium (Porcine) 5,000 unit 07/01/18 14:00 07/03/18 15:08 Heparin - SQ 5,000 unit TID FERNANDA Administration Ceftriaxone Sodium 1 gm/ 50 mls @ 100 mls/hr 07/02/18 10:00 07/03/18 09:19 Dextrose IVPB 100 mls/hr DAILY FERNANDA Administration Magnesium Hydroxide 30 ml 07/01/18 14:08 Milk Of Magnesia - PO Q8H PRN CONSTIPATION Metoprolol Succinate 50 mg 07/02/18 10:00 07/03/18 09:18 Toprol Xl - PO 50 mg DAILY FERNANDA Administration Multivitamins/Minerals/Vitamin C 1 tab 07/02/18 10:00 07/03/18 09:18 Tab-A-Vit - PO 1 tab DAILY FERNANDA Administration Ondansetron HCl 4 mg 07/01/18 22:25 Zofran Injection IVPUSH Q6H PRN NAUSEA AND/OR VOMITING Oxycodone HCl 5 mg 07/02/18 16:30 Roxicodone - PO Q6H PRN PAIN LEVEL 7 - 10 Pantoprazole Sodium 40 mg 07/02/18 10:00 07/03/18 09:18 Protonix - PO 40 mg DAILY FERNANDA Administration Phenytoin Sodium 500 mg 07/01/18 22:15 07/02/18 21:28 Phenytoin Sodium IVPB 500 mg HS FERNANDA Administration Senna/Docusate Sodium 1 tablet 07/02/18 10:00 07/03/18 09:18 Pericolace - PO 1 tablet BID FERNANDA Administration Tamsulosin HCl 0.4 mg 07/02/18 22:00 07/02/18 21:27 Flomax - PO 0.4 mg HS FERNANDA Administration ASSESSMENT/PLAN: Patient is a 67 year-old male with a past medical history of hypertension, HLD, 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 s/p b/l knee replacement (L knee replacement on 06/25) transferred from [facility] for acute intra-articular hemorrhage after a mechanical fall one day after surgery. Surgery s/p left total knee replacement. continue pain medications (on oxycodone). continue bowel regimen. Participating in PT but limited d/t pain. surgery follow up. Hematology Intra-articular hemorrhage of left knee s/p mechanical fall 1 day post op s/p knee replacement with Dr. Langston. Left popliteal vein confirmed with vascular doppler today. s/p 2 units of prbc. hmg/hct low stable. repeating today. if hmg falls below 7, will transfuse 1 unit of prbc. IVF filter placed on 06/30. On heparin tid for prophylaxis. Hematology consulted for restart of a/c. Neuro: Seizure history. On Dilantin for history of seizures Card: Hypertension. controlled. continue metoprolol 50mg daily, amlodopine 10mg daily, lisinopril 40mg daily, Echo LV normal, mild MR HLD. on statin Pulm Large left pleural effusion seen on imaging. On ceftriaxone prophylaxis. Pulmonary following. notes reviewed. General Morbid obesity Nutritional consult as an outpatient ID intermittent fevers, negative blood culture on emperic ceftriaxone chest xray shows large pleural effusion fen tolerating po monitor electrolytes prophy heparin tid Visit type - Emergency Visit Emergency Visit: Yes ED Registration Date: 06/25/18 Care time: The patient presented to the Emergency Department on the above date and was hospitalized for further evaluation of their emergent condition. - New Patient This patient is new to me today: No - Critical Care Critical Care patient: No - Discharge Referral Referred to [facility] Med P.C.: No
[2018-07-03 17:58] LABS: BASO % 0.5 % (0-2.0); EOS % 2.4 % (0-4.5); HEMATOCRIT 24.7 % (35.4-49); HEMOGLOBIN 8.3 GM/dL (11.7-16.9); LYMPH % 15.2 % (8-40); MCH 30.8 pg (25.7-33.7); MCHC 33.6 g/dl (32.0-35.9); MEAN CELL VOLUME 91.6 fl (80-96); MEAN PLT VOLUME 7.6 fl (7.5-11.1); MONO % 14.1 % (3.8-10.2); NEUT % 67.8 % (42.8-82.8); PLATELET COUNT 313 K/MM3 (134-434); RBC 2.69 M/mm3 (4.00-5.60); RDW 14.6 % (11.9-15.9); WHITE BLOOD COUNT 8.7 K/mm3 (4.0-10.0)
[2018-07-03] MEDS ORDERED: PT OWN MED DRAWER 7, Y5N ONE (20:30)
--- NOTE | 2018-07-03 21:26 | PN ---
Progress Note (short form) - Note Progress Note: 67M s/p LEFT total knee replacement POD #8. Pain well controlled. No acute events overnight. Pt. denies overnight history of headaches, chest pain, shortness of breath, nausea, vomiting, chills, & sweats. (+) [place]; (+) Flatus; (+) BM. (+) Walked in room today. Tolerating diet. All labs and vitals reviewed. PE: AAO x 3, NAD. L-Knee: Dressing C/D/I. Leg diffusely swollen, but continues to improve. Pt. reluctant to actively flex knee. NVI distally. A/P: 66F s/p LEFT total knee replacement POD #8. -Pain control. -DVT PPx: -Chemical: therapeutic anticoagulation per ICU & medical hospitalist teams. -Mechanical: BARB's. -Incentive spirometry q15 min. -PT/OT/Rehab, OOB. -WBAT LLE. -Diet as tolerated. -Care per medical hospitalist team. -f/u [facility] [place] office within 7-10 days of hospital discharge; call for appointment; . -Discharge planning. -Will follow. Hilario Langston MD (Orthopaedic Surgery).
[2018-07-03] MEDS: FINASTERIDE 5 MG TABLET (FP) PO SCH (22:06)
[2018-07-03] MEDS: TAMSULOSIN HCL 0.4 MG CAP PO SCH (22:07)
[2018-07-03] MEDS: PHENYTOIN SODIUM 250 MG/5 ML VIAL IVPB SCH (22:07)
--- NOTE | 2018-07-03 22:16 | PN ---
Progress Note (short form) - Note Progress Note: Patient seen and examined c/o LLE pain AFVSS Cor: RSR, No murmurs, No gallops Lungs: Clear to P&A Abd: Soft, Normal bowel sounds, No organomegaly Ext:LLE swelling Labs/Meds reviewed A/P Left popliteal DVT post op while on subtherapeutic lovenox therapy. Prior history of prison a/c on coumadin. s/p IVC filter Left knee hemarthrosis Currently on heparin 5000 u sc bid Awaiting orthopaedic clearence prior to full dose a/c thrombophilia w/u pending Hypodensities in pancreas with dilated ducts---needs f/u and further w/u /gi consult once stabilized
[2018-07-04] MEDS: HEPARIN NA (PORCINE) 5,000 UNITS/ML 1ML VIAL SQ SCH (05:33)
[2018-07-04 08:24] LABS: ALBUMIN 2.2 g/dl (3.4-5.0); ALK PHOS 127 U/L (45-117); ANION GAP 7 MMOL/L (8-16); BILIRUBIN,TOTAL 0.7 mg/dL (0.2-1); BLOOD UREA NITROGEN 22 mg/dL (7-18); CALCIUM 7.8 mg/dL (8.5-10.1); CHLORIDE 103 mmol/L (98-107); CO2 30 mmol/L (21-32); CREATININE 0.9 mg/dL (0.55-1.3); GLUCOSE,RANDOM 107 mg/dL (74-106); POTASSIUM 3.5 mmol/L (3.5-5.1); SGOT/AST 87 U/L (15-37); SGPT/ALT 106 U/L (13-61); SODIUM 140 mmol/L (136-145); TOT PROT 5.6 g/dl (6.4-8.2)
[2018-07-04 08:25] LABS: BASO % 1.1 % (0-2.0); EOS % 2.6 % (0-4.5); HEMOGLOBIN 8.2 GM/dL (11.7-16.9); LYMPH % 16.8 % (8-40); MCH 30.7 pg (25.7-33.7); MCHC 34.1 g/dl (32.0-35.9); MEAN CELL VOLUME 90.2 fl (80-96); MEAN PLT VOLUME 7.9 fl (7.5-11.1); MONO % 11.8 % (3.8-10.2); NEUT % 67.7 % (42.8-82.8); PLATELET COUNT 308 K/MM3 (134-434); RBC 2.66 M/mm3 (4.00-5.60); RDW 14.5 % (11.9-15.9); WHITE BLOOD COUNT 8.4 K/mm3 (4.0-10.0)
--- NOTE | 2018-07-04 08:42 | PN ---
Physical Exam: SUBJECTIVE: Patient seen and examined at the bedside. denies any pain or malaise. OBJECTIVE: 67 year old male with a past medical history of dvt on coumadin x 10 years, developed DVT post op s/p left knee repair while previously on subtherpeutic lovenox dosing. He is s/p fall 1 day after surgery. He had an IVC filter placed on 06/30/18. Will start on Lovenox 120mg BID (weight dose) with a bridge to Coumadin 5mg. heme following and length of anticoagulation to be determined. Vital Signs Period Temp Pulse Resp BP Sys/Gee Pulse Ox Last 24 Hr 98.5 F-99.1 F 104-111 18-20 110-145/58-91 100 GENERAL: The patient is awake, alert, and fully oriented, in no acute distress. HEAD: Normal with no signs of trauma. EYES: PERRL, extraocular movements intact, LUNGS: Breath sounds equal, clear to auscultation bilaterally, no wheezes, no crackles, no accessory muscle use. HEART: Regular rate and rhythm, S1, S2 without murmur, rub or gallop. ABDOMEN: Soft, nontender, nondistended, normoactive bowel sounds, no guarding EXTREMITIES: 2+ pulses, warm left knee swollen and tender, mild erythema below left knee below surgical site. warm to touch. PSYCH: Normal mood, normal affect. SKIN: mild erythema below left knee below surgical site. warm to touch, improving. Laboratory Results - last 24 hr 06/30/18 07/03/18 07/04/18 08:57 17:35 07:00 WBC 8.7 8.4 RBC 2.69 L 2.66 L Hgb 8.3 L 8.2 L Hct 24.7 L 24.0 L MCV 91.6 90.2 MCH 30.8 30.7 MCHC 33.6 34.1 RDW 14.6 14.5 Plt Count 313 308 MPV 7.6 7.9 Absolute Neuts (auto) 5.9 5.7 Neutrophils % 67.8 67.7 Lymphocytes % 15.2 16.8 Monocytes % 14.1 H 11.8 H Eosinophils % 2.4 2.6 Basophils % 0.5 1.1 Nucleated RBC % 1 H 2 H Sodium Potassium Chloride Carbon Dioxide Anion Gap BUN Creatinine Creat Clearance w eGFR Random Glucose Calcium Total Bilirubin AST ALT Alkaline Phosphatase Total Protein Albumin Blood Type A POSITIVE Antibody Screen Negative Crossmatch See Detail 07/04/18 07:00 WBC RBC Hgb Hct MCV MCH MCHC RDW Plt Count MPV Absolute Neuts (auto) Neutrophils % Lymphocytes % Monocytes % Eosinophils % Basophils % Nucleated RBC % Sodium 140 Potassium 3.5 Chloride 103 Carbon Dioxide 30 Anion Gap 7 L BUN 22 H Creatinine 0.9 Creat Clearance w eGFR 83.67 Random Glucose 107 H Calcium 7.8 L Total Bilirubin 0.7 AST 87 H ALT 106 H Alkaline Phosphatase 127 H Total Protein 5.6 L Albumin 2.2 L Blood Type Antibody Screen Crossmatch Active Medications Generic Name Dose Route Start Last Admin Trade Name Freq PRN Reason Stop Dose Admin Acetaminophen 1,000 mg 07/01/18 22:25 Ofirmev Injection - IVPB Q6H PRN FEVER Al Hydroxide/Mg Hydroxide 30 ml 07/01/18 22:25 Mylanta Oral Suspension - PO Q4H PRN DYSPEPSIA Finasteride 5 mg 07/02/18 22:00 07/03/18 22:06 Proscar - PO 5 mg HS FERNANDA Administration Furosemide 40 mg 07/01/18 12:45 07/03/18 09:18 Lasix Injection - IVPUSH 40 mg DAILY FERNANDA Administration Heparin Sodium (Porcine) 5,000 unit 07/01/18 14:00 07/04/18 05:33 Heparin - SQ 5,000 unit TID FERNANDA Administration Ceftriaxone Sodium 1 gm/ 50 mls @ 100 mls/hr 07/02/18 10:00 07/03/18 09:19 Dextrose IVPB 100 mls/hr DAILY FERNANDA Administration Magnesium Hydroxide 30 ml 07/01/18 14:08 Milk Of Magnesia - PO Q8H PRN CONSTIPATION Metoprolol Succinate 50 mg 07/02/18 10:00 07/03/18 09:18 Toprol Xl - PO 50 mg DAILY FERNANDA Administration Multivitamins/Minerals/Vitamin C 1 tab 07/02/18 10:00 07/03/18 09:18 Tab-A-Vit - PO 1 tab DAILY FERNANDA Administration Ondansetron HCl 4 mg 07/01/18 22:25 Zofran Injection IVPUSH Q6H PRN NAUSEA AND/OR VOMITING Oxycodone HCl 5 mg 07/02/18 16:30 Roxicodone - PO Q6H PRN PAIN LEVEL 7 - 10 Pantoprazole Sodium 40 mg 07/02/18 10:00 07/03/18 09:18 Protonix - PO 40 mg DAILY FERNANDA Administration Phenytoin Sodium 500 mg 07/01/18 22:15 07/03/18 22:07 Phenytoin Sodium IVPB 500 mg HS FERNANDA Administration Senna/Docusate Sodium 1 tablet 07/02/18 10:00 07/03/18 22:07 Pericolace - PO 1 tablet BID FERNANDA Administration Tamsulosin HCl 0.4 mg 07/02/18 22:00 07/03/18 22:07 Flomax - PO 0.4 mg HS FERNANDA Administration ASSESSMENT/PLAN: Patient is a 67 year-old male with a past medical history of hypertension, HLD, 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 s/p b/l knee replacement (L knee replacement on 06/25) transferred from [facility] for acute intra-articular hemorrhage after a mechanical fall one day after surgery. Surgery s/p left total knee replacement. continue pain medications (on oxycodone). continue bowel regimen. Participating in PT but limited d/t pain. surgery follow up. Hematology Intra-articular hemorrhage of left knee s/p mechanical fall 1 day post op s/p knee replacement with Dr. Langston. Left popliteal vein confirmed with vascular doppler. s/p 2 units of prbc. hmg/hct low but stable. if hmg falls below 7, will transfuse 1 unit of prbc. IVF filter placed on 06/30. discussed with hematology, will start on lovenox 120mg bid dosing with a bridge to coumadin with close monitoring of hmg/hct. will get coumadin 5mg tonight. repeat inr in a.m. with goal inr between 2-3. Neuro: Seizure history. On Dilantin for history of seizures Card: Hypertension. controlled. continue metoprolol 50mg daily, amlodopine 10mg daily, lisinopril 40mg daily, HLD. on statin Pulm Large left pleural effusion seen on imaging. On ceftriaxone prophylaxis. Pulmonary following. notes reviewed. General Morbid obesity Nutritional consult as an outpatient ID intermittent fevers, negative blood culture on emperic ceftriaxone chest xray shows large pleural effusion fen tolerating po monitor electrolytes prophy Lovenox bid to coumadin bridge. Visit type - Emergency Visit Emergency Visit: Yes ED Registration Date: 06/25/18 Care time: The patient presented to the Emergency Department on the above date and was hospitalized for further evaluation of their emergent condition. - New Patient This patient is new to me today: No - Critical Care Critical Care patient: No - Discharge Referral Referred to [facility] Med P.C.: No
--- NOTE | 2018-07-04 10:17 | PN ---
Progress Note (short form) - Note Progress Note: Patient seen and examined Patient continues to be unable to provide adequate history on prior DVT and assisted anticoagulation Last Vital Signs Temp Pulse Resp BP Pulse Ox 98.7 F 105 H 20 140/72 100 07/04/18 06:00 07/04/18 06:00 07/04/18 06:00 07/04/18 06:00 07/03/18 09:00 HEENT: MASSIEL, EOM Intact Oropharynx: No thrush, No mucositis Cor: RSR, No murmurs, No gallops Lungs: Clear to P&A Abd: Soft, Normal bowel sounds, No organomegaly Ext:-LLE -swollen , somewhat tense medially; Knee swollen with dressing Skin: No rashes, Integument intact CBC, BMP 07/04/18 07:00 07/04/18 07:00 Current Medications Generic Name Dose Route Start Last Admin Trade Name Freq PRN Reason Stop Dose Admin Acetaminophen 1,000 mg 07/01/18 22:25 Ofirmev Injection - IVPB Q6H PRN FEVER Al Hydroxide/Mg Hydroxide 30 ml 07/01/18 22:25 Mylanta Oral Suspension - PO Q4H PRN DYSPEPSIA Finasteride 5 mg 07/02/18 22:00 07/03/18 22:06 Proscar - PO 5 mg HS FERNANDA Administration Furosemide 40 mg 07/01/18 12:45 07/03/18 09:18 Lasix Injection - IVPUSH 40 mg DAILY FERNANDA Administration Heparin Sodium (Porcine) 5,000 unit 07/01/18 14:00 07/04/18 05:33 Heparin - SQ 5,000 unit TID FERNANDA Administration Ceftriaxone Sodium 1 gm/ 50 mls @ 100 mls/hr 07/02/18 10:00 07/03/18 09:19 Dextrose IVPB 100 mls/hr DAILY FERNANDA Administration Magnesium Hydroxide 30 ml 07/01/18 14:08 Milk Of Magnesia - PO Q8H PRN CONSTIPATION Metoprolol Succinate 50 mg 07/02/18 10:00 07/03/18 09:18 Toprol Xl - PO 50 mg DAILY FERNANDA Administration Multivitamins/Minerals/Vitamin C 1 tab 07/02/18 10:00 07/03/18 09:18 Tab-A-Vit - PO 1 tab DAILY FERNANDA Administration Ondansetron HCl 4 mg 07/01/18 22:25 Zofran Injection IVPUSH Q6H PRN NAUSEA AND/OR VOMITING Oxycodone HCl 5 mg 07/02/18 16:30 Roxicodone - PO Q6H PRN PAIN LEVEL 7 - 10 Pantoprazole Sodium 40 mg 07/02/18 10:00 07/03/18 09:18 Protonix - PO 40 mg DAILY FERNANDA Administration Phenytoin Sodium 500 mg 07/01/18 22:15 07/03/18 22:07 Phenytoin Sodium IVPB 500 mg HS FERNANDA Administration Senna/Docusate Sodium 1 tablet 07/02/18 10:00 07/03/18 22:07 Pericolace - PO 1 tablet BID FERNANDA Administration Tamsulosin HCl 0.4 mg 07/02/18 22:00 07/03/18 22:07 Flomax - PO 0.4 mg HS FERNANDA Administration Impression: DVT post op while previously on subtherapeutic lovenox therapy. Prior history of assisted a/c on coumadin. s/p IVC filter patient will require minimum of 3-6 months of full dose a/c . In view of weight , DOAC would not be recommended. Can bridge full dose lovenox to coumadin Duration of therapy post 3 months for current DVT will depend upon details of prior necessity for coumadin..May in fact need indefinite a/c. Will need to get clearance from ortho when to institute full dose a/c. Will need to get details from PCP of prior DVT and necessity of medical terminologist a/c. Initial screening thrombophilia work up pending
[2018-07-04 11:54] LABS: INR 1.16 (0.83-1.09); PROTHROMBIN TIME (PATIENT) 13.7 SEC (9.7-13.0)
[2018-07-04] MEDS ORDERED: cefTRIAXone SODIUM 1 GM VIAL ONE (12:05)
[2018-07-04] MEDS ORDERED: DEXTROSE 5%-WATER - 50 ML IVPB ONE (12:06)
[2018-07-04] MEDS: MULTIVITAMINS (DAILY MVI) TABLET (FP) PO SCH (12:18)
[2018-07-04] MEDS: SENNOSIDES/DOCUSATE COMBO (SENNA PLUS) TABLET (UD) PO SCH ×2 (12:18→22:30)
[2018-07-04] MEDS: PANTOPRAZOLE 40 MG TABLET (FP) PO SCH (12:18)
[2018-07-04] MEDS: ENOXAPARIN NA (PORCINE) 120 MG/0.8 ML DISP.SYRIN SQ SCH ×2 (12:19→23:49)
[2018-07-04] MEDS: CEFTRIAXONE 1 GM in DEXTROSE 5%-WATER - 50 ML IVPB SCH (12:20)
[2018-07-04] MEDS: FUROSEMIDE 40 MG/4 ML INJECTABLE VIAL IVPUSH SCH (12:21)
--- NOTE | 2018-07-04 14:12 | PN ---
Progress Note (short form) - Note Progress Note: s: no chest pain, palps, dizziness, lightheadedness sob Current Medications Generic Name Dose Route Start Last Admin Trade Name Freq PRN Reason Stop Dose Admin Acetaminophen 1,000 mg 07/01/18 22:25 Ofirmev Injection - IVPB Q6H PRN FEVER Al Hydroxide/Mg Hydroxide 30 ml 07/01/18 22:25 Mylanta Oral Suspension - PO Q4H PRN DYSPEPSIA Enoxaparin Sodium 120 mg 07/04/18 10:45 07/04/18 12:19 Lovenox - SQ 120 mg Q12H FERNANDA Administration Finasteride 5 mg 07/02/18 22:00 07/03/18 22:06 Proscar - PO 5 mg HS FERNANDA Administration Furosemide 40 mg 07/01/18 12:45 07/04/18 12:21 Lasix Injection - IVPUSH 40 mg DAILY FERNANDA Administration Ceftriaxone Sodium 1 gm/ 50 mls @ 100 mls/hr 07/02/18 10:00 07/04/18 12:20 Dextrose IVPB 100 mls/hr DAILY FERNANDA Administration Magnesium Hydroxide 30 ml 07/01/18 14:08 Milk Of Magnesia - PO Q8H PRN CONSTIPATION Metoprolol Succinate 50 mg 07/02/18 10:00 07/04/18 12:19 Toprol Xl - PO 50 mg DAILY FERNANDA Administration Multivitamins/Minerals/Vitamin C 1 tab 07/02/18 10:00 07/04/18 12:18 Tab-A-Vit - PO 1 tab DAILY FERNANDA Administration Ondansetron HCl 4 mg 07/01/18 22:25 Zofran Injection IVPUSH Q6H PRN NAUSEA AND/OR VOMITING Oxycodone HCl 5 mg 07/02/18 16:30 Roxicodone - PO Q6H PRN PAIN LEVEL 7 - 10 Pantoprazole Sodium 40 mg 07/02/18 10:00 07/04/18 12:18 Protonix - PO 40 mg DAILY FERNANDA Administration Phenytoin Sodium 500 mg 07/01/18 22:15 07/03/18 22:07 Phenytoin Sodium IVPB 500 mg HS FERNANDA Administration Senna/Docusate Sodium 1 tablet 07/02/18 10:00 07/04/18 12:18 Pericolace - PO 1 tablet BID FERNANDA Administration Tamsulosin HCl 0.4 mg 07/02/18 22:00 04/18/19 22:07 Flomax - PO 0.4 mg HS FERNANDA Administration Warfarin Sodium 5 mg 07/04/18 18:00 Coumadin - PO DAILY@1800 [facility] Vital Signs Period Temp Pulse Resp BP Sys/Gee Pulse Ox Last 24 Hr 98.6 F-99.1 F 104-113 18-20 110-145/58-84 Constitutional: Yes: Well Nourished, No Distress, Calm Cardiovascular: Yes: Regular Rate and Rhythm, S1, S2. No: Gallop, Murmur Respiratory: Yes: Regular, CTA Bilaterally. No: Accessory Muscle Use, Rales Extremities: No: Cold Edema: No Neurological: Yes: Alert Psychiatric: No: Agitated no jaundice diaphoresis CBC, BMP 07/04/18 07:00 07/04/18 07:00 tele: sinus tachycardia Assessment/Plan 67M h/o HTN, HLD, h/o DVT p/w tachycardia after total knee replacement tachycardia - no central PE on CTA - HRs likely sec to anemia- stable now after PRBC hypotension, CHAD: -improved after IVF, PRBC -holding amlodipine/KELSEA -cont metoprolol as bp allows h/o VTEs, on correction warfarin: - subtherapeutic lovenox dose given preop as bridging - L pop vein DVT here on sonogram - H/H stable--cont monitoring - s/p IVC filter 06/30 - AC management per heme pleural effusion - on IV lasix, continue - Cr stable, weight down, resp status stable on room air VTach: - Keep K>4 and Mg >2 - EF normal HTN - on toprol, lisinopril, amlodipine - holding home lisinopril and amlodipine due to hypotension at times, stable with metoprolol s/p L TKR - manage per ortho
[2018-07-04 18:13] LABS: HOMOCYSTINE-PLASMA OR SERUM 11.8 umol/L (0.0-15.0)
[2018-07-04] MEDS: WARFARIN NA 5 MG TABLET (UD) PO SCH (18:25)
[2018-07-04] MEDS ORDERED: PT OWN MED DRAWER 7, Y5N ONE (22:08)
[2018-07-04] MEDS: PHENYTOIN SODIUM 250 MG/5 ML VIAL IVPB SCH (22:30)
[2018-07-04] MEDS: TAMSULOSIN HCL 0.4 MG CAP PO SCH (22:30)
[2018-07-04] MEDS: FINASTERIDE 5 MG TABLET (FP) PO SCH (22:30)
[2018-07-05] MEDS ORDERED: cefTRIAXone SODIUM 1 GM VIAL ONE (09:42)
[2018-07-05] MEDS ORDERED: DEXTROSE 5%-WATER - 50 ML IVPB ONE (09:42)
[2018-07-05] MEDS: CEFTRIAXONE 1 GM in DEXTROSE 5%-WATER - 50 ML IVPB SCH (10:03)
[2018-07-05] MEDS: FUROSEMIDE 40 MG/4 ML INJECTABLE VIAL IVPUSH SCH (10:04)
[2018-07-05] MEDS: SENNOSIDES/DOCUSATE COMBO (SENNA PLUS) TABLET (UD) PO SCH ×2 (10:15→22:39)
[2018-07-05] MEDS: MULTIVITAMINS (DAILY MVI) TABLET (FP) PO SCH (10:15)
[2018-07-05] MEDS: PANTOPRAZOLE 40 MG TABLET (FP) PO SCH (10:15)
[2018-07-05] MEDS: ENOXAPARIN NA (PORCINE) 120 MG/0.8 ML DISP.SYRIN SQ SCH ×2 (10:19→22:58)
[2018-07-05 10:43] LABS: BASO % 0.8 % (0-2.0); HEMATOCRIT 25.9 % (35.4-49); HEMOGLOBIN 8.7 GM/dL (11.7-16.9); LYMPH % 12.6 % (8-40); MCH 30.7 pg (25.7-33.7); MCHC 33.7 g/dl (32.0-35.9); MEAN CELL VOLUME 91.1 fl (80-96); MEAN PLT VOLUME 7.8 fl (7.5-11.1); NEUT % 75.6 % (42.8-82.8); PLATELET COUNT 352 K/MM3 (134-434); RBC 2.84 M/mm3 (4.00-5.60); RDW 14.6 % (11.9-15.9); WHITE BLOOD COUNT 8.2 K/mm3 (4.0-10.0)
[2018-07-05 10:58] LABS: INR 1.15 (0.83-1.09); PROTHROMBIN TIME (PATIENT) 13.6 SEC (9.7-13.0)
[2018-07-05 11:40] LABS: ALBUMIN 2.3 g/dl (3.4-5.0); ALK PHOS 129 U/L (45-117); ANION GAP 7 MMOL/L (8-16); BILIRUBIN,TOTAL 0.8 mg/dL (0.2-1); BLOOD UREA NITROGEN 20 mg/dL (7-18); CALCIUM 8.2 mg/dL (8.5-10.1); CHLORIDE 100 mmol/L (98-107); CO2 30 mmol/L (21-32); GLUCOSE,RANDOM 145 mg/dL (74-106); MAGNESIUM 2.2 mg/dL (1.8-2.4); POTASSIUM 3.5 mmol/L (3.5-5.1); SGOT/AST 92 U/L (15-37); SGPT/ALT 124 U/L (13-61); SODIUM 137 mmol/L (136-145)
[2018-07-05 12:11] LABS: DRVVT - 25.2 sec (0.0-47.0)
[2018-07-05] MEDS: WARFARIN NA 5 MG TABLET (UD) PO SCH (17:43)
--- NOTE | 2018-07-05 20:41 | PN ---
Progress Note, Physician History of Present Illness: Pt seen & examined this morning appears well with reported tmax yest of 100.7F though pt denies any symptoms Input: 450cc's/ Output: 900cc's, net neg 450cc's on 07/04/18. REports eating well no N/V/D - Current Medication List Current Medications: Active Medications Acetaminophen (Ofirmev Injection -) 1,000 mg IVPB Q6H PRN PRN Reason: FEVER Al Hydroxide/Mg Hydroxide (Mylanta Oral Suspension -) 30 ml PO Q4H PRN PRN Reason: DYSPEPSIA Enoxaparin Sodium (Lovenox -) 120 mg SQ Q12H [facility] Last Admin: 07/05/18 10:19 Dose: 120 mg Finasteride (Proscar -) 5 mg PO HS [facility] Last Admin: 07/04/18 22:30 Dose: 5 mg Furosemide (Lasix Injection -) 40 mg IVPUSH DAILY [facility] Last Admin: 07/05/18 10:04 Dose: 40 mg Ceftriaxone Sodium 1 gm/ (Dextrose) 50 mls @ 100 mls/hr IVPB DAILY [facility] Last Admin: 07/05/18 10:03 Dose: 100 mls/hr Magnesium Hydroxide (Milk Of Magnesia -) 30 ml PO Q8H PRN PRN Reason: CONSTIPATION Metoprolol Succinate (Toprol Xl -) 50 mg PO DAILY [facility] Last Admin: 07/05/18 10:16 Dose: 50 mg Multivitamins/Minerals/Vitamin C (Tab-A-Vit -) 1 tab PO DAILY [facility] Last Admin: 07/05/18 10:15 Dose: 1 tab Ondansetron HCl (Zofran Injection) 4 mg IVPUSH Q6H PRN PRN Reason: NAUSEA AND/OR VOMITING Oxycodone HCl (Roxicodone -) 5 mg PO Q6H PRN PRN Reason: PAIN LEVEL 7 - 10 Pantoprazole Sodium (Protonix -) 40 mg PO DAILY [facility] Last Admin: 07/05/18 10:15 Dose: 40 mg Phenytoin Sodium (Phenytoin Sodium) 500 mg IVPB HS [facility] Last Admin: 07/04/18 22:30 Dose: 500 mg Senna/Docusate Sodium (Pericolace -) 1 tablet PO BID [facility] Last Admin: 07/05/18 10:15 Dose: 1 tablet Tamsulosin HCl (Flomax -) 0.4 mg PO HS [facility] Last Admin: 07/04/18 22:30 Dose: 0.4 mg Warfarin Sodium (Coumadin -) 5 mg PO DAILY@1800 [facility] Last Admin: 07/05/18 17:43 Dose: 5 mg - Objective Vital Signs: Vital Signs Temperature 98.4 F 07/05/18 20:21 Pulse Rate 104 H 07/05/18 20:21 Respiratory Rate 20 07/05/18 20:21 Blood Pressure 125/80 07/05/18 20:21 O2 Sat by Pulse Oximetry (%) 100 07/05/18 09:00 Constitutional: Yes: Well Nourished, No Distress, Calm Eyes: Yes: Conjunctiva Clear, EOM Intact HENT: Yes: Atraumatic, Normocephalic Neck: Yes: Supple, Trachea Midline Cardiovascular: Yes: Regular Rate and Rhythm (nrml s1 & s2) Respiratory: Yes: Regular, CTA Bilaterally Gastrointestinal: Yes: Normal Bowel Sounds, Soft Extremities: Yes: Other (trace LE edema, warm well perfused b/l) Labs: CBC, BMP 07/05/18 10:00 07/05/18 10:00 INR, PTT INR 1.15 (0.83-1.09) H 07/05/18 10:00 Problem List - Problems (1) Anemia Assessment/Plan: Hgb stable at 8.7, no indication for transfusion continue to monitor Code(s): D64.9 - ANEMIA, UNSPECIFIED (2) DVT (deep venous thrombosis) Assessment/Plan: Pt on therapeutic lovenox while being bridged to coumadin, goal INR 2-3, remains subtherapuetic at 1.15 Code(s): I82.409 - ACUTE EMBOLISM AND THOMBOS UNSP DEEP VN UNSP LOWER EXTREMITY (3) HTN (hypertension) Assessment/Plan: c/w anti HTN for BP control, above ideal target c/w metprolol for now Code(s): I10 - ESSENTIAL (PRIMARY) HYPERTENSION (4) Morbid obesity with BMI of 40.0-44.9, adult Assessment/Plan: will benefit from outpt e learning developer referral upon discharge. Code(s): E66.01 - MORBID (SEVERE) OBESITY DUE TO EXCESS CALORIES; Z68.41 - BODY MASS INDEX (BMI) 40.0-44.9, ADULT (5) Osteoarthritis of left knee Assessment/Plan: prn oxycodone, ambulation as tolerated recommended Code(s): M17.12 - UNILATERAL PRIMARY OSTEOARTHRITIS, LEFT KNEE
[2018-07-05] MEDS: PHENYTOIN SODIUM 250 MG/5 ML VIAL IVPB SCH (22:37)
[2018-07-05] MEDS: FINASTERIDE 5 MG TABLET (FP) PO SCH ×2 (22:39→22:51)
[2018-07-05] MEDS: TAMSULOSIN HCL 0.4 MG CAP PO SCH ×2 (22:39→22:51)
--- NOTE | 2018-07-05 23:22 | PN ---
Progress Note (short form) - Note Progress Note: Patient seen and examined LLE pain improved Last Vital Signs Temp Pulse Resp BP Pulse Ox 98.4 F 104 H 20 125/80 100 07/05/18 20:21 07/05/18 20:21 07/05/18 20:21 07/05/18 20:21 07/05/18 09:00 Cor: RSR, No murmurs, No gallops Lungs: Clear to P&A Abd: Soft, Normal bowel sounds, No organomegaly Ext:LLE swelling Labs/Meds reviewed A/P Left popliteal DVT post op while on subtherapeutic lovenox therapy. 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 s/p IVC filter Left knee hemarthrosis thrombophilia w/u pending on lovenox bridging to coumadin will need 3months of a/c and reevaluation based on thrombophilia w/u , prior history etc. Hypodensities in pancreas with dilated ducts---needs f/u and further w/u /gi consult once stabilized
[2018-07-06 09:50] LABS: BASO % 0.7 % (0-2.0); EOS % 3.4 % (0-4.5); HEMATOCRIT 26.7 % (35.4-49); LYMPH % 12.6 % (8-40); MCHC 33.7 g/dl (32.0-35.9); MEAN CELL VOLUME 91.9 fl (80-96); MEAN PLT VOLUME 7.7 fl (7.5-11.1); MONO % 7.6 % (3.8-10.2); NEUT % 75.7 % (42.8-82.8); PLATELET COUNT 329 K/MM3 (134-434); RBC 2.91 M/mm3 (4.00-5.60); RDW 14.7 % (11.9-15.9); WHITE BLOOD COUNT 9.3 K/mm3 (4.0-10.0)
[2018-07-06 10:00] LABS: INR 1.18 (0.83-1.09)
[2018-07-06 10:12] LABS: ALBUMIN 2.3 g/dl (3.4-5.0); ALK PHOS 128 U/L (45-117); ANION GAP 6 MMOL/L (8-16); BILIRUBIN,TOTAL 0.8 mg/dL (0.2-1); BLOOD UREA NITROGEN 18 mg/dL (7-18); CALCIUM 8.2 mg/dL (8.5-10.1); CHLORIDE 101 mmol/L (98-107); CO2 30 mmol/L (21-32); CREATININE 0.9 mg/dL (0.55-1.3); GLUCOSE,RANDOM 134 mg/dL (74-106); MAGNESIUM 2.3 mg/dL (1.8-2.4); POTASSIUM 3.6 mmol/L (3.5-5.1); SGOT/AST 79 U/L (15-37); SGPT/ALT 124 U/L (13-61); SODIUM 137 mmol/L (136-145); TOT PROT 6.3 g/dl (6.4-8.2)
[2018-07-06] MEDS ORDERED: cefTRIAXone SODIUM 1 GM VIAL ONE (10:14)
[2018-07-06] MEDS ORDERED: DEXTROSE 5%-WATER - 50 ML IVPB ONE (10:14)
[2018-07-06] MEDS: CEFTRIAXONE 1 GM in DEXTROSE 5%-WATER - 50 ML IVPB SCH (10:24)
[2018-07-06] MEDS: PANTOPRAZOLE 40 MG TABLET (FP) PO SCH (10:24)
[2018-07-06] MEDS: FUROSEMIDE 40 MG/4 ML INJECTABLE VIAL IVPUSH SCH (10:24)
[2018-07-06] MEDS: MULTIVITAMINS (DAILY MVI) TABLET (FP) PO SCH (10:24)
[2018-07-06] MEDS: ENOXAPARIN NA (PORCINE) 120 MG/0.8 ML DISP.SYRIN SQ SCH ×2 (10:24→22:20)
--- NOTE | 2018-07-06 11:05 | PN ---
Progress Note, Physician History of Present Illness: Pt seen & examined this morning has been reporting several loose stools in past 24hrs but no abd pain, foul odor, fevers, chills, tolerating PO intake with no nausea, vomiting, breathing comfortably. Knee pain relatively well controlled. INR remains low at 1.18 this AM 24hr inputs: 800ml/ output: 1.2L, net neg 320ml/ today net + 50ml balance - Current Medication List Current Medications: Active Medications Acetaminophen (Ofirmev Injection -) 1,000 mg IVPB Q6H PRN PRN Reason: FEVER Enoxaparin Sodium (Lovenox -) 120 mg SQ Q12H [facility] Last Admin: 07/06/18 10:24 Dose: 120 mg Finasteride (Proscar -) 5 mg PO HS [facility] Last Admin: 07/05/18 22:51 Dose: 5 mg Furosemide (Lasix Injection -) 40 mg IVPUSH DAILY [facility] Last Admin: 07/06/18 10:24 Dose: 40 mg Ceftriaxone Sodium 1 gm/ (Dextrose) 50 mls @ 100 mls/hr IVPB DAILY [facility] Last Admin: 07/06/18 10:24 Dose: 100 mls/hr Metoprolol Succinate (Toprol Xl -) 50 mg PO DAILY [facility] Last Admin: 07/06/18 10:24 Dose: 50 mg Multivitamins/Minerals/Vitamin C (Tab-A-Vit -) 1 tab PO DAILY [facility] Last Admin: 07/06/18 10:24 Dose: 1 tab Ondansetron HCl (Zofran Injection) 4 mg IVPUSH Q6H PRN PRN Reason: NAUSEA AND/OR VOMITING Oxycodone HCl (Roxicodone -) 5 mg PO Q6H PRN PRN Reason: PAIN LEVEL 7 - 10 Pantoprazole Sodium (Protonix -) 40 mg PO DAILY [facility] Last Admin: 07/06/18 10:24 Dose: 40 mg Phenytoin Sodium (Phenytoin Sodium) 500 mg IVPB HS [facility] Last Admin: 07/05/18 22:37 Dose: 500 mg Tamsulosin HCl (Flomax -) 0.4 mg PO HS [facility] Last Admin: 07/05/18 22:51 Dose: 0.4 mg Warfarin Sodium 5 mg/ Warfarin (Sodium 2.5 mg) 7.5 mg PO DAILY@1800 [facility] - Objective Vital Signs: Vital Signs Temperature 98.9 F 07/06/18 05:59 Pulse Rate 100 H 07/06/18 05:59 Respiratory Rate 20 07/06/18 05:59 Blood Pressure 137/73 07/06/18 05:59 O2 Sat by Pulse Oximetry (%) 100 07/05/18 21:00 Constitutional: Yes: Well Nourished, No Distress (afebrile), Obese Eyes: Yes: Conjunctiva Clear, EOM Intact HENT: Yes: Atraumatic (moist mucous membranes), Normocephalic Neck: Yes: Supple, Trachea Midline Cardiovascular: Yes: Regular Rate and Rhythm (s1 &s2 nrml no rubs, gallops, murmurs) Respiratory: Yes: Regular, CTA Bilaterally Gastrointestinal: Yes: Normal Bowel Sounds, Soft, Abdomen, Obese (non tender, nondistended) Extremities: Yes: Other (L leg s/p surgery w/ wound dressing in place, edematous throughout, + posterior ertyhema, no warmth or visible discharge, 2+ radial & DP pulses b/l) Labs: CBC, BMP 07/06/18 08:50 07/06/18 08:50 INR, PTT INR 1.18 (0.83-1.09) H 07/06/18 08:50 Problem List - Problems (1) Anemia Assessment/Plan: Hgb stable now > 9, no indication for transfusion & continue to monitor Code(s): D64.9 - ANEMIA, UNSPECIFIED (2) DVT (deep venous thrombosis) Assessment/Plan: - heme evaluation ongoing pending results of studies & heme following - Pt remains on therapeutic lovenox while briding to Coumadin, increased dose yesterday to 7.5mg as INR remains below goal 2-3 continue to trend daily INR Code(s): I82.409 - ACUTE EMBOLISM AND THOMBOS UNSP DEEP VN UNSP LOWER EXTREMITY (3) HTN (hypertension) Assessment/Plan: - BP at goal presently - c/w metoprolol daily Code(s): I10 - ESSENTIAL (PRIMARY) HYPERTENSION (4) Morbid obesity with BMI of 40.0-44.9, adult Assessment/Plan: pt would benefit from outpt multi craft maintenance technician referral upon D/c + participation with PT to help gait stability & promote exercise activity Code(s): E66.01 - MORBID (SEVERE) OBESITY DUE TO EXCESS CALORIES; Z68.41 - BODY MASS INDEX (BMI) 40.0-44.9, ADULT (5) Osteoarthritis of left knee Assessment/Plan: Ambulation as tolerated w/ PRN oxycodone, Tylenol & topical ice PRN for pain relief Code(s): M17.12 - UNILATERAL PRIMARY OSTEOARTHRITIS, LEFT KNEE (6) Loose bowel movement Assessment/Plan: - hold all stool softeners & collect stool to check for C.diff, Stool wbc & Stool Cx, given extended hospital stay though has no systemic signs/symptoms to suggest clinical C.diff Code(s): R19.5 - OTHER FECAL ABNORMALITIES
[2018-07-06] MEDS ORDERED: PT OWN MED DRAWER 7, Y5N ONE ×2 (15:13→21:01)
[2018-07-06] MEDS ORDERED: WARFARIN NA 5 MG TABLET (UD) ONE (16:41)
[2018-07-06] MEDS ORDERED: WARFARIN NA 2.5 MG TABLET (FP) ONE (16:41)
[2018-07-06] MEDS ORDERED: WARFARIN NA 5 MG, WARFARIN NA 2.5 MG PO SCH (18:00)
[2018-07-06] MEDS ORDERED: WARFARIN NA 5 MG TABLET (UD) PO SCH (18:00)
[2018-07-06] MEDS: FINASTERIDE 5 MG TABLET (FP) PO SCH (21:16)
[2018-07-06] MEDS: TAMSULOSIN HCL 0.4 MG CAP PO SCH (21:16)
[2018-07-06] MEDS: PHENYTOIN SODIUM 250 MG/5 ML VIAL IVPB SCH (21:19)
[2018-07-07 10:01] LABS: BASO % 0.5 % (0-2.0); EOS % 2.9 % (0-4.5); HEMATOCRIT 26.2 % (35.4-49); HEMOGLOBIN 8.9 GM/dL (11.7-16.9); LYMPH % 12.5 % (8-40); MCH 31.1 pg (25.7-33.7); MCHC 33.9 g/dl (32.0-35.9); MEAN CELL VOLUME 91.7 fl (80-96); MEAN PLT VOLUME 7.8 fl (7.5-11.1); MONO % 6.7 % (3.8-10.2); NEUT % 77.4 % (42.8-82.8); PLATELET COUNT 325 K/MM3 (134-434); RBC 2.86 M/mm3 (4.00-5.60); RDW 14.6 % (11.9-15.9); WHITE BLOOD COUNT 10.2 K/mm3 (4.0-10.0)
[2018-07-07] MEDS ORDERED: cefTRIAXone SODIUM 1 GM VIAL ONE (10:16)
[2018-07-07] MEDS ORDERED: DEXTROSE 5%-WATER - 50 ML IVPB ONE (10:16)
[2018-07-07] MEDS: ENOXAPARIN NA (PORCINE) 120 MG/0.8 ML DISP.SYRIN SQ SCH ×2 (10:20→22:26)
[2018-07-07] MEDS: PANTOPRAZOLE 40 MG TABLET (FP) PO SCH (10:20)
[2018-07-07] MEDS: MULTIVITAMINS (DAILY MVI) TABLET (FP) PO SCH (10:20)
[2018-07-07] MEDS: FUROSEMIDE 40 MG/4 ML INJECTABLE VIAL IVPUSH SCH (10:20)
[2018-07-07 10:21] LABS: INR 1.17 (0.83-1.09); PROTHROMBIN TIME (PATIENT) 13.8 SEC (9.7-13.0)
[2018-07-07] MEDS: CEFTRIAXONE 1 GM in DEXTROSE 5%-WATER - 50 ML IVPB SCH (10:21)
[2018-07-07 10:27] LABS: ALBUMIN 2.3 g/dl (3.4-5.0); ALK PHOS 128 U/L (45-117); ANION GAP 7 MMOL/L (8-16); BILIRUBIN,TOTAL 0.7 mg/dL (0.2-1); BLOOD UREA NITROGEN 20 mg/dL (7-18); CALCIUM 8.1 mg/dL (8.5-10.1); CHLORIDE 101 mmol/L (98-107); CO2 28 mmol/L (21-32); CREATININE 0.8 mg/dL (0.55-1.3); GLUCOSE,RANDOM 129 mg/dL (74-106); POTASSIUM 3.6 mmol/L (3.5-5.1); SGOT/AST 74 U/L (15-37); SGPT/ALT 122 U/L (13-61); SODIUM 136 mmol/L (136-145); TOT PROT 6.4 g/dl (6.4-8.2)
[2018-07-07 11:39] LABS: MAGNESIUM 2.5 mg/dL (1.8-2.4)
--- NOTE | 2018-07-07 14:05 | PN ---
Progress Note (short form) - Note Progress Note: 67M s/p LEFT total knee replacement POD #12. Pain well controlled. No acute events overnight. Pt. denies overnight history of headaches, chest pain, shortness of breath, nausea, vomiting, chills, & sweats. (+) [place]; (+) [place]; (+) BM. (+) Walked with PT. Tolerating diet. All labs and vitals reviewed. PE: AAO x 3, NAD. L-Knee: Dressing C/D/I. No sub-sartorial tenderness to palpation. Leg swelling markedly improved. NVI distally. A/P: 66F s/p LEFT total knee replacement POD #12. -Pain control. -DVT PPx: -Chemical: therapeutic Lovenox while bridging to therapeutic INR (coumadin). -Mechanical: BARB's. -Incentive spirometry q15 min. -PT/OT/Rehab, OOB. -WBAT LLE. -Diet as tolerated. -Care per medical hospitalist team. -f/u [facility] [place] office within 7-10 days of hospital discharge; call for appointment; . -Discharge planning. -Will follow. Jonathan Langston MD (Orthopaedic Surgery).
--- NOTE | 2018-07-07 14:51 | PN ---
Physical Exam: SUBJECTIVE: Patient seen and examined at the bedside. in no acute distress. OBJECTIVE: 67 year old male with a past medical history of dvt on coumadin x 10 years, developed DVT post op s/p left knee repair while previously on subtherpeutic lovenox dosing. He is s/p fall 1 day after surgery. He had an IVC filter placed on 06/30/18. started on Lovenox 120mg BID (weight dose) with a bridge to Coumadin. heme following. awaiting authorization to rehab facility. Vital Signs Period Temp Pulse Resp BP Sys/Gee Pulse Ox Last 24 Hr 98 F-98.7 F 99-103 20-20 143-150/75-82 100 GENERAL: The patient is awake, alert, and fully oriented, in no acute distress. HEAD: Normal with no signs of trauma. EYES: PERRL, extraocular movements intact, LUNGS: Breath sounds equal, clear to auscultation bilaterally, no wheezes, no crackles, no accessory muscle use. HEART: Regular rate and rhythm, S1, S2 without murmur, rub or gallop. ABDOMEN: Soft, nontender, nondistended, normoactive bowel sounds, no guarding EXTREMITIES: 2+ pulses, warm left knee swollen and tender, previous seen mild erythema below left knee site has resolved. PSYCH: Normal mood, normal affect. Laboratory Results - last 24 hr 07/07/18 07/07/18 07/07/18 09:15 09:15 09:15 WBC 10.2 H RBC 2.86 L Hgb 8.9 L Hct 26.2 L MCV 91.7 MCH 31.1 MCHC 33.9 RDW 14.6 Plt Count 325 MPV 7.8 Absolute Neuts (auto) 7.9 Neutrophils % 77.4 Lymphocytes % 12.5 Monocytes % 6.7 Eosinophils % 2.9 Basophils % 0.5 Nucleated RBC % 1 H PT with INR 13.80 H INR 1.17 H Sodium 136 Potassium 3.6 Chloride 101 Carbon Dioxide 28 Anion Gap 7 L BUN 20 H Creatinine 0.8 Creat Clearance w eGFR 95.85 Random Glucose 129 H Calcium 8.1 L Magnesium 2.5 H Total Bilirubin 0.7 AST 74 H ALT 122 H Alkaline Phosphatase 128 H Total Protein 6.4 Albumin 2.3 L Active Medications Generic Name Dose Route Start Last Admin Trade Name Freq PRN Reason Stop Dose Admin Acetaminophen 1,000 mg 07/01/18 22:25 Ofirmev Injection - IVPB Q6H PRN FEVER Enoxaparin Sodium 120 mg 07/04/18 10:45 07/07/18 10:20 Lovenox - SQ 120 mg Q12H [facility] Administration Finasteride 5 mg 07/02/18 22:00 07/06/18 21:16 Proscar - PO 5 mg HS [facility] Administration Furosemide 40 mg 07/01/18 12:45 07/07/18 10:20 Lasix Injection - IVPUSH 40 mg DAILY [facility] Administration Ceftriaxone Sodium 1 gm/ 50 mls @ 100 mls/hr 07/02/18 10:00 07/07/18 10:21 Dextrose IVPB 100 mls/hr DAILY [facility] Administration Metoprolol Succinate 50 mg 07/02/18 10:00 07/07/18 10:20 Toprol Xl - PO 50 mg DAILY [facility] Administration Multivitamins/Minerals/Vitamin C 1 tab 07/02/18 10:00 07/07/18 10:20 Tab-A-Vit - PO 1 tab DAILY [facility] Administration Ondansetron HCl 4 mg 07/01/18 22:25 Zofran Injection IVPUSH Q6H PRN NAUSEA AND/OR VOMITING Pantoprazole Sodium 40 mg 07/02/18 10:00 07/07/18 10:20 Protonix - PO 40 mg DAILY [facility] Administration Phenytoin Sodium 500 mg 07/01/18 22:15 07/06/18 21:19 Phenytoin Sodium IVPB 500 mg HS [facility] Administration Tamsulosin HCl 0.4 mg 07/02/18 22:00 07/06/18 21:16 Flomax - PO 0.4 mg HS [facility] Administration Warfarin Sodium 10 mg 07/07/18 18:00 Coumadin - PO DAILY@1800 [facility] ASSESSMENT/PLAN: Patient is a 67 year-old male with a past medical history of hypertension, HLD, 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 s/p b/l knee replacement (L knee replacement on 06/25) transferred from [facility] for acute intra-articular hemorrhage after a mechanical fall one day after surgery. Surgery s/p left total knee replacement. continue pain medications (on oxycodone). continue bowel regimen. Participating in PT but limited d/t pain. surgery following.. Hematology Intra-articular hemorrhage of left knee s/p mechanical fall 1 day post op s/p knee replacement with Dr. Langston. Left popliteal vein confirmed with vascular doppler. s/p 2 units of prbc. hmg/hct low but stable. if hmg falls below 7, will transfuse 1 unit of prbc. IVF filter placed on 06/30. discussed with hematology, will start on lovenox 120mg bid dosing with a bridge to coumadin with close monitoring of hmg/hct. will get coumadin 10mg tonight as inr remains subtherapeutic. repeat inr in a.m. with goal inr between 2-3. Neuro: Seizure history. On Dilantin for history of seizures Card: Hypertension. controlled. continue metoprolol 50mg daily, amlodopine 10mg daily, lisinopril 40mg daily, HLD. on statin Pulm Large left pleural effusion seen on imaging. On ceftriaxone. Pulmonary following. notes reviewed. General Morbid obesity Nutritional consult as an outpatient ID intermittent fevers, negative blood culture on emperic ceftriaxone Diarrhea. negative for c diff. fen tolerating po monitor electrolytes prophy Lovenox bid to coumadin bridge. Visit type - Emergency Visit Emergency Visit: Yes ED Registration Date: 06/25/18 Care time: The patient presented to the Emergency Department on the above date and was hospitalized for further evaluation of their emergent condition. - New Patient This patient is new to me today: No - Critical Care Critical Care patient: No - Discharge Referral Referred to [facility] Med P.C.: No
--- NOTE | 2018-07-07 15:24 | PN ---
Progress Note (short form) - Note Progress Note: s: no chest pain, palps, dizziness, lightheadedness sob Current Medications Acetaminophen (Ofirmev Injection -) 1,000 mg IVPB Q6H PRN PRN Reason: FEVER Enoxaparin Sodium (Lovenox -) 120 mg SQ Q12H [facility] Last Admin: 07/07/18 10:20 Dose: 120 mg Finasteride (Proscar -) 5 mg PO HS [facility] Last Admin: 07/06/18 21:16 Dose: 5 mg Furosemide (Lasix Injection -) 40 mg IVPUSH DAILY [facility] Last Admin: 07/07/18 10:20 Dose: 40 mg Ceftriaxone Sodium 1 gm/ (Dextrose) 50 mls @ 100 mls/hr IVPB DAILY [facility] Last Admin: 07/07/18 10:21 Dose: 100 mls/hr Metoprolol Succinate (Toprol Xl -) 50 mg PO DAILY [facility] Last Admin: 07/07/18 10:20 Dose: 50 mg Multivitamins/Minerals/Vitamin C (Tab-A-Vit -) 1 tab PO DAILY [facility] Last Admin: 07/07/18 10:20 Dose: 1 tab Ondansetron HCl (Zofran Injection) 4 mg IVPUSH Q6H PRN PRN Reason: NAUSEA AND/OR VOMITING Pantoprazole Sodium (Protonix -) 40 mg PO DAILY [facility] Last Admin: 07/07/18 10:20 Dose: 40 mg Phenytoin Sodium (Phenytoin Sodium) 500 mg IVPB HS [facility] Last Admin: 07/06/18 21:19 Dose: 500 mg Tamsulosin HCl (Flomax -) 0.4 mg PO HS [facility] Last Admin: 07/06/18 21:16 Dose: 0.4 mg Warfarin Sodium (Coumadin -) 10 mg PO DAILY@1800 [facility] Vital Signs Period Temp Pulse Resp BP Sys/Gee Pulse Ox Last 24 Hr 98 F-98.7 F 99-103 20-20 143-150/75-82 100 Constitutional: Yes: Well Nourished, No Distress, Calm Cardiovascular: Yes: Regular Rate and Rhythm, S1, S2. No: Gallop, Murmur Respiratory: Yes: Regular, CTA Bilaterally. No: Accessory Muscle Use, Rales Extremities: No: Cold Edema: No Neurological: Yes: Alert Psychiatric: No: Agitated no jaundice diaphoresis CBC, BMP 07/04/18 07:00 04/19/19 07:00 tele: sinus tachycardia Assessment/Plan 67M h/o HTN, HLD, h/o DVT p/w tachycardia after total knee replacement tachycardia - no central PE on CTA - HRs likely sec to anemia- stable now after PRBC hypotension, CHAD: -improved after IVF, PRBC -holding amlodipine/KELSEA -cont metoprolol as bp allows h/o VTEs, on correction warfarin: - subtherapeutic lovenox dose given preop as bridging - L pop vein DVT here on sonogram - H/H stable--cont monitoring - s/p IVC filter 06/30 - AC management per heme pleural effusion - on IV lasix, continue - Cr stable, weight down, resp status stable on room air - repeat CXR ordered VTach: - Keep K>4 and Mg >2 - EF normal HTN - on toprol, lisinopril, amlodipine - holding home lisinopril and amlodipine due to hypotension at times, stable with metoprolol s/p L TKR - manage per ortho
[2018-07-07] MEDS: WARFARIN NA 5 MG TABLET (UD) PO SCH (19:00)
[2018-07-07] MEDS ORDERED: PT OWN MED DRAWER 7, Y5N ONE (20:59)
[2018-07-07] MEDS: PHENYTOIN SODIUM 250 MG/5 ML VIAL IVPB SCH (21:11)
[2018-07-07] MEDS: FINASTERIDE 5 MG TABLET (FP) PO SCH (21:12)
[2018-07-07] MEDS: TAMSULOSIN HCL 0.4 MG CAP PO SCH (21:12)
[2018-07-08] MEDS ORDERED: POTASSIUM CHLORIDE TABS 20 MEQ TABLET.ER (FP) PO ONE (07:57)
[2018-07-08 07:58] LABS: INR 1.29 (0.83-1.09); PROTHROMBIN TIME (PATIENT) 15.3 SEC (9.7-13.0)
[2018-07-08] MEDS ORDERED: DEXTROSE 5%-WATER - 50 ML IVPB ONE (09:20)
[2018-07-08] MEDS ORDERED: cefTRIAXone SODIUM 1 GM VIAL ONE (09:20)
[2018-07-08] MEDS: CEFTRIAXONE 1 GM in DEXTROSE 5%-WATER - 50 ML IVPB SCH (09:22)
[2018-07-08] MEDS: MULTIVITAMINS (DAILY MVI) TABLET (FP) PO SCH (09:22)
[2018-07-08] MEDS: FUROSEMIDE 40 MG/4 ML INJECTABLE VIAL IVPUSH SCH (09:22)
[2018-07-08] MEDS: PANTOPRAZOLE 40 MG TABLET (FP) PO SCH (09:22)
[2018-07-08 09:26] LABS: BASO % 0.5 % (0-2.0); EOS % 2.7 % (0-4.5); HEMATOCRIT 26.9 % (35.4-49); HEMOGLOBIN 9.1 GM/dL (11.7-16.9); LYMPH % 15.2 % (8-40); MCH 31.1 pg (25.7-33.7); MCHC 33.8 g/dl (32.0-35.9); MEAN CELL VOLUME 91.9 fl (80-96); MEAN PLT VOLUME 7.2 fl (7.5-11.1); MONO % 6.5 % (3.8-10.2); NEUT % 75.1 % (42.8-82.8); PLATELET COUNT 348 K/MM3 (134-434); RBC 2.92 M/mm3 (4.00-5.60); RDW 15.3 % (11.9-15.9); WHITE BLOOD COUNT 9.8 K/mm3 (4.0-10.0)
[2018-07-08] MEDS: ENOXAPARIN NA (PORCINE) 120 MG/0.8 ML DISP.SYRIN SQ SCH ×2 (09:49→21:57)
[2018-07-08 09:55] LABS: INR 1.27 (0.83-1.09)
[2018-07-08 09:57] LABS: ALBUMIN 2.3 g/dl (3.4-5.0); ALK PHOS 126 U/L (45-117); ANION GAP 6 MMOL/L (8-16); BILIRUBIN,TOTAL 0.6 mg/dL (0.2-1); BLOOD UREA NITROGEN 18 mg/dL (7-18); CALCIUM 8.3 mg/dL (8.5-10.1); CHLORIDE 102 mmol/L (98-107); CO2 29 mmol/L (21-32); CREATININE 0.9 mg/dL (0.55-1.3); GLUCOSE,RANDOM 129 mg/dL (74-106); POTASSIUM 3.6 mmol/L (3.5-5.1); SGOT/AST 63 U/L (15-37); SGPT/ALT 110 U/L (13-61); SODIUM 136 mmol/L (136-145); TOT PROT 6.4 g/dl (6.4-8.2)
--- NOTE | 2018-07-08 15:00 | PN ---
Progress Note (short form) - Note Progress Note: s: no chest pain, palps, dizziness, lightheadedness sob Current Medications Generic Name Dose Route Start Last Admin Trade Name Freq PRN Reason Stop Dose Admin Acetaminophen 1,000 mg 07/01/18 22:25 Ofirmev Injection - IVPB Q6H PRN FEVER Enoxaparin Sodium 120 mg 07/04/18 10:45 07/08/18 09:49 Lovenox - SQ 120 mg Q12H [facility] Administration Finasteride 5 mg 07/02/18 22:00 07/07/18 21:12 Proscar - PO 5 mg HS [facility] Administration Furosemide 40 mg 07/09/18 10:00 Lasix - PO DAILY [facility] Ceftriaxone Sodium 1 gm/ 50 mls @ 100 mls/hr 07/02/18 10:00 07/08/18 09:22 Dextrose IVPB 100 mls/hr DAILY [facility] Administration Metoprolol Succinate 50 mg 07/02/18 10:00 07/08/18 09:22 Toprol Xl - PO 50 mg DAILY [facility] Administration Multivitamins/Minerals/Vitamin C 1 tab 07/02/18 10:00 07/08/18 09:22 Tab-A-Vit - PO 1 tab DAILY [facility] Administration Ondansetron HCl 4 mg 07/01/18 22:25 Zofran Injection IVPUSH Q6H PRN NAUSEA AND/OR VOMITING Pantoprazole Sodium 40 mg 07/02/18 10:00 07/08/18 09:22 Protonix - PO 40 mg DAILY [facility] Administration Phenytoin Sodium 500 mg 07/01/18 22:15 07/07/18 21:11 Phenytoin Sodium IVPB 500 mg HS [facility] Administration Tamsulosin HCl 0.4 mg 07/02/18 22:00 07/07/18 21:12 Flomax - PO 0.4 mg HS [facility] Administration Warfarin Sodium 10 mg 07/07/18 18:00 07/07/18 19:00 Coumadin - PO 10 mg DAILY@1800 [facility] Administration Vital Signs Period Temp Pulse Resp BP Sys/Gee Pulse Ox Last 24 Hr 99 F-99.4 F 99-103 20-20 140-151/77-94 98-98 Constitutional: Yes: Well Nourished, No Distress, Calm Cardiovascular: Yes: Regular Rate and Rhythm, S1, S2. No: Gallop, Murmur Respiratory: Yes: Regular, CTA Bilaterally. No: Accessory Muscle Use, Rales Extremities: No: Cold Edema: No Neurological: Yes: Alert Psychiatric: No: Agitated no jaundice diaphoresis Laboratory Last Values WBC 9.8 K/mm3 (4.0-10.0) 07/08/18 09:23 Corrected WBC (auto) Cancelled 07/08/18 09:14 RBC 2.92 M/mm3 (4.00-5.60) L 07/08/18 09:23 Hgb 9.1 GM/dL (11.7-16.9) L 07/08/18 09:23 Hct 26.9 % (35.4-49) L 07/08/18 09:23 MCV 91.9 fl (80-96) 07/08/18 09:23 MCH 31.1 pg (25.7-33.7) 07/08/18 09:23 MCHC 33.8 g/dl (32.0-35.9) 07/08/18 09:23 RDW 15.3 % (11.9-15.9) 07/08/18 09:23 Plt Count 348 K/MM3 (134-434) 07/08/18 09:23 MPV 7.2 fl (7.5-11.1) L 07/08/18 09:23 Absolute Neuts (auto) 7.4 K/mm3 (1.5-8.0) 07/08/18 09:23 Neutrophils % 75.1 % (42.8-82.8) 07/08/18 09:23 Neutrophils % (Manual) 79.0 % (42.8-82.8) 06/27/18 16:30 Lymphocytes % 15.2 % (8-40) D 07/08/18 09:23 Lymphocytes % (Manual) 7.0 % (8-40) L 06/27/18 16:30 Monocytes % 6.5 % (3.8-10.2) 07/08/18 09:23 Monocytes % (Manual) 11 % (3.8-10.2) H 06/27/18 16:30 Eosinophils % 2.7 % (0-4.5) 07/08/18 09:23 Basophils % 0.5 % (0-2.0) 07/08/18 09:23 Myelocytes % (Man) 1 % (0-2) 06/27/18 16:30 Nucleated RBC % 0 % (0-0) 07/08/18 09:23 Manual Slide Review Cancelled 07/08/18 09:14 Platelet Estimate Adequate 06/27/18 16:30 Platelet Comment Cancelled 07/08/18 09:14 PT with INR 15.00 SEC (9.7-13.0) H 07/08/18 09:14 INR 1.27 (0.83-1.09) H 07/08/18 09:14 PTT (Actin FS) 32.0 SECONDS (25.2-36.5) 06/30/18 05:30 D-Dimer 04225 ng/ml (0-500) H 06/26/18 09:00 LA PTT Baseline 28.6 sec (0.0-51.9) 07/03/18 05:30 dRVVT Confirm Interp 25.2 sec (0.0-47.0) 07/03/18 05:30 Lupus Anticoag Comment Comment: (.) 07/03/18 05:30 Factor V Leiden (.) 07/03/18 05:30 Puncture Site Right radial 06/29/18 15:20 ABG pH 7.45 (7.35-7.45) 06/29/18 15:20 ABG pCO2 at Pt Temp 35.2 mmHg (35-45) 06/29/18 15:20 ABG pO2 at Pt Temp 75.8 mmHg (80-105) L 06/29/18 15:20 ABG HCO3 23.9 mmol/L (22-27) 06/29/18 15:20 ABG O2 Sat (Measured) 96.1 % (95-98) 06/29/18 15:20 ABG O2 Content 10.3 % vol (15-22) L 06/29/18 15:20 ABG Base Excess 0.5 meq/l (-2-2) 06/29/18 15:20 Rafael Test Positive 06/29/18 15:20 Oxygen Flow Rate No 06/29/18 15:20 Sodium 136 mmol/L (136-145) 07/08/18 09:00 Potassium 3.6 mmol/L (3.5-5.1) 07/08/18 09:00 Chloride 102 mmol/L (98-107) 07/08/18 09:00 Carbon Dioxide 29 mmol/L (21-32) 07/08/18 09:00 Anion Gap 6 MMOL/L (8-16) L 07/08/18 09:00 BUN 18 mg/dL (7-18) 07/08/18 09:00 Creatinine 0.9 mg/dL (0.55-1.3) 07/08/18 09:00 Creat Clearance w eGFR 83.67 (>60) 07/08/18 09:00 POC Glucometer 166 UNITS (80-120) 06/26/18 17:00 Random Glucose 129 mg/dL (74-106) H 07/08/18 09:00 Calcium 8.3 mg/dL (8.5-10.1) L 07/08/18 09:00 Phosphorus 2.6 mg/dL (2.5-4.9) 07/02/18 05:30 Magnesium 2.5 mg/dL (1.8-2.4) H 07/07/18 09:15 Total Bilirubin 0.6 mg/dL (0.2-1) 07/08/18 09:00 AST 63 U/L (15-37) H 07/08/18 09:00 ALT 110 U/L (13-61) H 07/08/18 09:00 Alkaline Phosphatase 126 U/L (45-117) H 07/08/18 09:00 Total Protein 6.4 g/dl (6.4-8.2) 07/08/18 09:00 Albumin 2.3 g/dl (3.4-5.0) L 07/08/18 09:00 Dvxb-9-[id number] <9 (0-20) 07/03/18 05:30 Homocysteine 11.8 umol/L (0.0-15.0) 07/03/18 05:30 Urine Color Yellow 06/30/18 11:10 Urine Appearance Cloudy 06/30/18 11:10 Urine pH 5.0 (5.0-8.0) 06/30/18 11:10 Ur Specific [place] 1.021 (1.010-1.035) 06/30/18 11:10 Urine Protein 1+ (NEGATIVE) H 06/30/18 11:10 Urine Glucose (UA) Negative (NEGATIVE) 06/30/18 11:10 Urine Ketones Negative (NEGATIVE) 06/30/18 11:10 Urine Blood Negative (NEGATIVE) 06/30/18 11:10 Urine Nitrite Negative (NEGATIVE) 06/30/18 11:10 Urine Bilirubin Negative (NEGATIVE) 06/30/18 11:10 Urine Urobilinogen 0.2 mg/dL (0.2-1.0) 06/30/18 11:10 Ur Leukocyte Esterase Negative (NEGATIVE) 06/30/18 11:10 Urine WBC (Auto) 7 /hpf (0-5) 06/30/18 11:10 Urine RBC (Auto) 7.7 /hpf (0-4) 06/30/18 11:10 Urine Casts (Auto) 17 /lpf (0-8) 06/30/18 11:10 U Pathogenic Cast Auto None seen /lpf (NEGATIVE) 06/30/18 11:10 U Epithel Cells (Auto) 2.4 /HPF (0-5/HPF) 06/30/18 11:10 Urine Bacteria (Auto) 0.5 /hpf (NEGATIVE) 06/30/18 11:10 Wmax-9-[id number] Ab <9 (0-25) 07/03/18 05:30 Beta-2-GPI IgM Ab <9 (0-32) 07/03/18 05:30 Anti-Cardiolipin IgG Ab <9 GPL U/mL (0-14) 07/03/18 05:30 Anti-Cardiolipin IgA Ab <9 APL U/mL (0-11) 07/03/18 05:30 Anti-Cardiolipin IgM Ab <9 MPL U/mL (0-12) 07/03/18 05:30 Blood Type A POSITIVE 06/30/18 08:57 Antibody Screen Negative 06/30/18 08:57 Crossmatch See Detail 06/30/18 08:57 Assessment/Plan 67M h/o HTN, HLD, h/o DVT p/w tachycardia after total knee replacement tachycardia - no central PE on CTA - HRs likely sec to anemia- stable now after PRBC hypotension, CHAD: -improved after IVF, PRBC -cont metoprolol, bp somewhat elevated so will add back home norvasc h/o VTEs, on nursing home warfarin: - subtherapeutic lovenox dose given preop as bridging - L pop vein DVT here on sonogram - H/H stable--cont monitoring - s/p IVC filter 06/30 - AC management per heme pleural effusion - has been on IV lasix. cxr improved, pt has no sob. will change to po lasix 40 qd. VTach: - Keep K>4 and Mg >2 - EF normal HTN - on toprol, lisinopril, amlodipine at home - holding home lisinopril and amlodipine due to hypotension at times but now bp elevated, will cont bb and add norvasc. s/p L TKR - manage per ortho
--- NOTE | 2018-07-08 15:57 | PN ---
Physical Exam: SUBJECTIVE: Patient seen and examined at bedside. Offers no new complaints. OBJECTIVE: Vital Signs Period Temp Pulse Resp BP Sys/Gee Pulse Ox Last 24 Hr 99 F-99.4 F 99-103 20-20 140-151/77-94 98-98 GENERAL: Awake, alert, and fully oriented, in no acute distress. EYES: sclera anicteric, conjunctiva clear. EARS, NOSE, THROAT: Ears normal, nares patent NECK: Normal range of motion LUNGS: Breath sounds equal, clear to auscultation bilaterally. HEART: RRR, normal S1 and S2 ABDOMEN: Soft, nontender, normoactive bowel sounds. LOWER EXTREMITIES: warm, well-perfused. No calf tenderness. Erythema on L knee improving. NEUROLOGICAL: Gait not observed. PSYCHIATRIC: Cooperative. Good eye contact. Appropriate mood and affect. SKIN: Warm, dry Laboratory Results - last 24 hr 07/03/18 07/08/18 07/08/18 05:30 06:40 09:00 WBC Corrected WBC (auto) RBC Hgb Hct MCV MCH MCHC RDW Plt Count MPV Absolute Neuts (auto) Neutrophils % Lymphocytes % Monocytes % Eosinophils % Basophils % Nucleated RBC % Manual Slide Review Platelet Comment PT with INR 15.30 H INR 1.29 H Factor V Leiden Sodium 136 Potassium 3.6 Chloride 102 Carbon Dioxide 29 Anion Gap 6 L BUN 18 Creatinine 0.9 Creat Clearance w eGFR 83.67 Random Glucose 129 H Calcium 8.3 L Total Bilirubin 0.6 AST 63 H ALT 110 H Alkaline Phosphatase 126 H Total Protein 6.4 Albumin 2.3 L Zbdu-8-Ugvkkwnbgpig <9 Hefu-6-Fvyqktihpjbt Ab <9 Beta-2-GPI IgM Ab <9 07/08/18 07/08/18 07/08/18 09:14 09:14 09:14 WBC Cancelled Corrected WBC (auto) Cancelled RBC Cancelled Hgb Cancelled Hct Cancelled MCV Cancelled MCH Cancelled MCHC Cancelled RDW Cancelled Plt Count Cancelled MPV Cancelled Absolute Neuts (auto) Neutrophils % Lymphocytes % Monocytes % Eosinophils % Basophils % Nucleated RBC % Manual Slide Review Cancelled Platelet Comment Cancelled PT with INR 15.00 H INR 1.27 H Factor V Leiden Sodium Cancelled Potassium Cancelled Chloride Cancelled Carbon Dioxide Cancelled Anion Gap Cancelled BUN Cancelled Creatinine Cancelled Creat Clearance w eGFR Cancelled Random Glucose Cancelled Calcium Cancelled Total Bilirubin AST ALT Alkaline Phosphatase Total Protein Albumin Gfnq-0-Pncodjcrjplr Stik-9-Jvoedgaunebv Ab Beta-2-GPI IgM Ab 07/08/18 09:23 WBC 9.8 Corrected WBC (auto) RBC 2.92 L Hgb 9.1 L Hct 26.9 L MCV 91.9 MCH 31.1 MCHC 33.8 RDW 15.3 Plt Count 348 MPV 7.2 L Absolute Neuts (auto) 7.4 Neutrophils % 75.1 Lymphocytes % 15.2 D Monocytes % 6.5 Eosinophils % 2.7 Basophils % 0.5 Nucleated RBC % 0 Manual Slide Review Platelet Comment PT with INR INR Factor V Leiden Sodium Potassium Chloride Carbon Dioxide Anion Gap BUN Creatinine Creat Clearance w eGFR Random Glucose Calcium Total Bilirubin AST ALT Alkaline Phosphatase Total Protein Albumin Hkol-8-Icjzrmydtvpo Gsjd-3-Ktjuehlwbskh Ab Beta-2-GPI IgM Ab Active Medications Generic Name Dose Route Start Last Admin Trade Name Freq PRN Reason Stop Dose Admin Acetaminophen 1,000 mg 07/01/18 22:25 Ofirmev Injection - IVPB Q6H PRN FEVER Amlodipine Besylate 5 mg 07/09/18 10:00 Norvasc - PO DAILY [facility]ERNA[facility]DA Enoxaparin Sodium 120 mg 07/04/18 10:45 07/08/18 09:49 Lovenox - SQ 120 mg Q12H [facility]ERNANDA Administration Finasteride 5 mg 07/02/18 22:00 07/07/18 21:12 Proscar - PO 5 mg HS [facility]ERNANDA Administration Furosemide 40 mg 07/09/18 10:00 Lasix - PO DAILY [facility]ERNANDA Ceftriaxone Sodium 1 gm/ 50 mls @ 100 mls/hr 07/02/18 10:00 07/08/18 09:22 Dextrose IVPB 100 mls/hr DAILY [facility]NDA Administration Metoprolol Succinate 50 mg 07/02/18 10:00 07/08/18 09:22 Toprol Xl - PO 50 mg DAILY [facility]ERNANDA Administration Multivitamins/Minerals/Vitamin C 1 tab 07/02/18 10:00 07/08/18 09:22 Tab-A-Vit - PO 1 tab DAILY [facility]DA Administration Ondansetron HCl 4 mg 07/01/18 22:25 Zofran Injection IVPUSH Q6H PRN NAUSEA AND/OR VOMITING Pantoprazole Sodium 40 mg 07/02/18 10:00 04/23/19 09:22 Protonix - PO 40 mg DAILY [facility] Administration Phenytoin Sodium 500 mg 07/01/18 22:15 07/07/18 21:11 Phenytoin Sodium IVPB 500 mg HS [facility]ERNANDA Administration Tamsulosin HCl 0.4 mg 07/02/18 22:00 07/07/18 21:12 Flomax - PO 0.4 mg HS [facility]DA Administration Warfarin Sodium 10 mg 07/07/18 18:00 07/07/18 19:00 Coumadin - PO 10 mg DAILY@1800 [facility] Administration ASSESSMENT/PLAN: 67 y/o M with PMH of HTN, HLD, RLE DVT (on coumadin), seizure d/o, OA of L knee (s/p knee replacement on 06/25/18), BPH currently hospitalized after his L knee replacement due to bleeding into his knee s/p fall and acute LLE DVT. LLE Acute DVT Hx of RLE DVT s/p L knee replacement s/p fall s/p IVC filter Anemia -Bridge from lovenox to coumadin. INR subtherapeutic. Monitor INR. -Prothrombin still pending. F/u. -Hgb stable, continue to monitor -c/w coumadin for 3months and will need furter re-evaluation for thrombophilia. -Dr. Ulises Irene [phone] is PCP who prescribed him his coumadin before ( dosed at 5mg and 4mg alternating). Unable to get a hold of him but may be helpful to find out why pt was on group home AC. Visit type - Emergency Visit Emergency Visit: Yes ED Registration Date: 06/25/18 Care time: The patient presented to the Emergency Department on the above date and was hospitalized for further evaluation of their emergent condition. - New Patient This patient is new to me today: No - Critical Care Critical Care patient: No
[2018-07-08] MEDS: WARFARIN NA 5 MG TABLET (UD) PO SCH (17:29)
--- NOTE | 2018-07-08 17:45 | PN ---
Physical Exam: SUBJECTIVE: Patient seen and examined 24HR events: -awaiting insurance authorization for rehab placement OBJECTIVE: Vital Signs Period Temp Pulse Resp BP Sys/Gee Pulse Ox Last 24 Hr 98.6 F-99.4 F 99-103 18-20 131-151/74-89 98-98 GENERAL: The patient is awake, alert, and fully oriented, in no acute distress.HEAD: Normal with no signs of trauma. EYES: PERRL, extraocular movements intact, sclera anicteric, conjunctiva clear. . ENT: nares patent, oropharynx clear without exudates, poor dentition, moist mucous membranes. NECK: Trachea midline, full range of motion, supple. LUNGS: Breath sounds equal, clear to auscultation bilaterally, no wheezes, no crackles, no accessory muscle use. HEART: Regular rate and rhythm, S1, S2 without murmur, rub or gallop. ABDOMEN: Soft, nontender, nondistended, normoactive bowel sounds, no guarding, no rebound EXTREMITIES: 2+ pulses, warm, well-perfused, no edema. Left knee with clean dry dressing NEUROLOGICAL: Normal speech, gait not observed. PSYCH: Normal mood, normal affect. SKIN: Warm, dry, normal turgor, no rashes or lesions noted Laboratory Results - last 24 hr 07/03/18 07/08/18 07/08/18 05:30 06:40 09:00 WBC Corrected WBC (auto) RBC Hgb Hct MCV MCH MCHC RDW Plt Count MPV Absolute Neuts (auto) Neutrophils % Lymphocytes % Monocytes % Eosinophils % Basophils % Nucleated RBC % Manual Slide Review Platelet Comment PT with INR 15.30 H INR 1.29 H Factor V Leiden Sodium 136 Potassium 3.6 Chloride 102 Carbon Dioxide 29 Anion Gap 6 L BUN 18 Creatinine 0.9 Creat Clearance w eGFR 83.67 Random Glucose 129 H Calcium 8.3 L Total Bilirubin 0.6 AST 63 H ALT 110 H Alkaline Phosphatase 126 H Total Protein 6.4 Albumin 2.3 L 07/08/18 07/08/18 07/08/18 09:14 09:14 09:14 WBC Cancelled Corrected WBC (auto) Cancelled RBC Cancelled Hgb Cancelled Hct Cancelled MCV Cancelled MCH Cancelled MCHC Cancelled RDW Cancelled Plt Count Cancelled MPV Cancelled Absolute Neuts (auto) Neutrophils % Lymphocytes % Monocytes % Eosinophils % Basophils % Nucleated RBC % Manual Slide Review Cancelled Platelet Comment Cancelled PT with INR 15.00 H INR 1.27 H Factor V Leiden Sodium Cancelled Potassium Cancelled Chloride Cancelled Carbon Dioxide Cancelled Anion Gap Cancelled BUN Cancelled Creatinine Cancelled Creat Clearance w eGFR Cancelled Random Glucose Cancelled Calcium Cancelled Total Bilirubin AST ALT Alkaline Phosphatase Total Protein Albumin 07/08/18 09:23 WBC 9.8 Corrected WBC (auto) RBC 2.92 L Hgb 9.1 L Hct 26.9 L MCV 91.9 MCH 31.1 MCHC 33.8 RDW 15.3 Plt Count 348 MPV 7.2 L Absolute Neuts (auto) 7.4 Neutrophils % 75.1 Lymphocytes % 15.2 D Monocytes % 6.5 Eosinophils % 2.7 Basophils % 0.5 Nucleated RBC % 0 Manual Slide Review Platelet Comment PT with INR INR Factor V Leiden Sodium Potassium Chloride Carbon Dioxide Anion Gap BUN Creatinine Creat Clearance w eGFR Random Glucose Calcium Total Bilirubin AST ALT Alkaline Phosphatase Total Protein Albumin Active Medications Generic Name Dose Route Start Last Admin Trade Name Freq PRN Reason Stop Dose Admin Acetaminophen 1,000 mg 07/01/18 22:25 Ofirmev Injection - IVPB Q6H PRN FEVER Amlodipine Besylate 5 mg 07/09/18 10:00 Norvasc - PO DAILY COUNTS INCLUDE 234 BEDS AT THE [facility] Enoxaparin Sodium 120 mg 07/04/18 10:45 07/08/18 09:49 Lovenox - SQ 120 mg Q12H [facility]ERNANDA Administration Finasteride 5 mg 07/02/18 22:00 07/07/18 21:12 Proscar - PO 5 mg HS FERNANDA Administration Furosemide 40 mg 07/09/18 10:00 Lasix - PO DAILY FERNANDA Ceftriaxone Sodium 1 gm/ 50 mls @ 100 mls/hr 07/02/18 10:00 07/08/18 09:22 Dextrose IVPB 100 mls/hr DAILY [facility]ERNANDA Administration Metoprolol Succinate 50 mg 07/02/18 10:00 07/08/18 09:22 Toprol Xl - PO 50 mg DAILY FERNANDA Administration Multivitamins/Minerals/Vitamin C 1 tab 07/02/18 10:00 07/08/18 09:22 Tab-A-Vit - PO 1 tab DAILY [facility]ERNANDA Administration Ondansetron HCl 4 mg 07/01/18 22:25 Zofran Injection IVPUSH Q6H PRN NAUSEA AND/OR VOMITING Pantoprazole Sodium 40 mg 07/02/18 10:00 07/08/18 09:22 Protonix - PO 40 mg DAILY [facility]NDA Administration Phenytoin Sodium 500 mg 07/01/18 22:15 07/07/18 21:11 Phenytoin Sodium IVPB 500 mg HS FERNANDA Administration Tamsulosin HCl 0.4 mg 07/02/18 22:00 07/07/18 21:12 Flomax - PO 0.4 mg HS [facility]ERNANDA Administration Warfarin Sodium 10 mg 07/07/18 18:00 07/08/18 17:29 Coumadin - PO 10 mg DAILY@1800 [facility]DA Administration ASSESSMENT/PLAN: 67 year-old male with a past medical history of hypertension, HLD, 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 s/p b/l knee replacement (L knee replacement on 06/25) transferred from [facility] for acute intra-articular hemorrhage after a mechanical fall post-op dy # 1. He is now s/p 2 units of prbc with stable H/H. Hospital course also c/b left popliteal DVT, he is s/p IVF filter on 06/30 and is now being transitioned from Lovenox to coumadin. MSK: s/p left total knee replacement. continue pain medications (on oxycodone). continue bowel regimen. PT daily. surgery following. Hematology: DVT recurrent coumadin 10mg daily. Daily CBC and INR (goal 2-3), will d/c lovenox once pt has therapeutic INR. bleeding precautions Neuro: Seizure disorder Continue Dilantin Card: Hypertension, HTN continue metoprolol 50mg daily, amlodopine 10mg daily, lisinopril 40mg daily, HLD: pt not taking statin - send AM fasting lipids Pulm: Large left pleural effusion. Cont ceftriaxone. Pulmonary following. recs appreciated. ID: [id number] with negative blood culture Empiric ceftriaxone 1gm daily : BPH -continue flomax adn proscar FEB tolerating po monitor electrolytes prophylaxis Lovenox bid to coumadin bridge. PPI daily MVI Code status: Full Dispo: d/c to rehab Problem List - Problems (1) BPH (benign prostatic hyperplasia) Code(s): N40.0 - BENIGN PROSTATIC HYPERPLASIA WITHOUT LOWER URINRY TRACT SYMP (2) Anemia Code(s): D64.9 - ANEMIA, UNSPECIFIED (3) DVT (deep venous thrombosis) Code(s): I82.409 - ACUTE EMBOLISM AND THOMBOS UNSP DEEP VN UNSP LOWER EXTREMITY (4) HTN (hypertension) Code(s): I10 - ESSENTIAL (PRIMARY) HYPERTENSION (5) Hypercholesteremia Code(s): E78.00 - PURE HYPERCHOLESTEROLEMIA, UNSPECIFIED (6) Morbid obesity with BMI of 40.0-44.9, adult Code(s): E66.01 - MORBID (SEVERE) OBESITY DUE TO EXCESS CALORIES; Z68.41 - BODY MASS INDEX (BMI) 40.0-44.9, ADULT (7) Osteoarthritis of left knee Code(s): M17.12 - UNILATERAL PRIMARY OSTEOARTHRITIS, LEFT KNEE (8) Seizures Code(s): R56.9 - UNSPECIFIED CONVULSIONS Visit type - Emergency Visit Emergency Visit: No - New Patient This patient is new to me today: Yes Date on this admission: 07/08/18 - Critical Care Critical Care patient: No - Discharge Referral Referred to [facility] Med P.C.: No
[2018-07-08] MEDS ORDERED: PT OWN MED DRAWER 7, Y5N ONE (20:41)
[2018-07-08] MEDS: FINASTERIDE 5 MG TABLET (FP) PO SCH (21:31)
[2018-07-08] MEDS: TAMSULOSIN HCL 0.4 MG CAP PO SCH (21:31)
[2018-07-08] MEDS: PHENYTOIN SODIUM 250 MG/5 ML VIAL IVPB SCH (21:31)
[2018-07-09 07:21] LABS: HEMATOCRIT 26.5 % (35.4-49); HEMOGLOBIN 8.9 GM/dL (11.7-16.9); MCH 31.2 pg (25.7-33.7); MCHC 33.7 g/dl (32.0-35.9); MEAN CELL VOLUME 92.6 fl (80-96); MEAN PLT VOLUME 7.6 fl (7.5-11.1); PLATELET COUNT 331 K/MM3 (134-434); RBC 2.87 M/mm3 (4.00-5.60); RDW 15.1 % (11.9-15.9); WHITE BLOOD COUNT 8.5 K/mm3 (4.0-10.0)
[2018-07-09 07:22] LABS: INR 1.38 (0.83-1.09); PROTHROMBIN TIME (PATIENT) 16.3 SEC (9.7-13.0)
[2018-07-09 07:25] LABS: ACTIVATED PTT 34.2 SECONDS (25.2-36.5)
[2018-07-09 07:42] LABS: ANION GAP 7 MMOL/L (8-16); BLOOD UREA NITROGEN 20 mg/dL (7-18); CALCIUM 8.1 mg/dL (8.5-10.1); CHLORIDE 103 mmol/L (98-107); CO2 29 mmol/L (21-32); CREATININE 0.9 mg/dL (0.55-1.3); GLUCOSE,RANDOM 92 mg/dL (74-106); MAGNESIUM 2.2 mg/dL (1.8-2.4); SODIUM 139 mmol/L (136-145)
[2018-07-09] MEDS ORDERED: DEXTROSE 5%-WATER - 50 ML IVPB ONE (09:27)
[2018-07-09] MEDS ORDERED: cefTRIAXone SODIUM 1 GM VIAL ONE (09:27)
[2018-07-09] MEDS: FUROSEMIDE 40 MG TABLET (FP) PO SCH (09:43)
[2018-07-09] MEDS: CEFTRIAXONE 1 GM in DEXTROSE 5%-WATER - 50 ML IVPB SCH (09:43)
[2018-07-09] MEDS: amLODIPine BESYLATE 5 MG TABLET (FP) PO SCH (09:43)
[2018-07-09] MEDS: MULTIVITAMINS (DAILY MVI) TABLET (FP) PO SCH (09:43)
[2018-07-09] MEDS: PANTOPRAZOLE 40 MG TABLET (FP) PO SCH (09:43)
[2018-07-09] MEDS: ENOXAPARIN NA (PORCINE) 120 MG/0.8 ML DISP.SYRIN SQ SCH ×2 (13:53→22:26)
--- NOTE | 2018-07-09 15:56 | PN ---
Progress Note, Physician Chief Complaint: seen and examined. Denies CP, SOB, palpitations. History of Present Illness: BP trend stable. - Current Medication List Current Medications: Active Medications Acetaminophen (Ofirmev Injection -) 1,000 mg IVPB Q6H PRN PRN Reason: FEVER Amlodipine Besylate (Norvasc -) 5 mg PO DAILY [facility] Last Admin: 07/09/18 09:43 Dose: 5 mg Enoxaparin Sodium (Lovenox -) 120 mg SQ Q12H [facility] Last Admin: 07/09/18 13:53 Dose: 120 mg Finasteride (Proscar -) 5 mg PO HS [facility] Last Admin: 07/08/18 21:31 Dose: 5 mg Furosemide (Lasix -) 40 mg PO DAILY [facility] Last Admin: 07/09/18 09:43 Dose: 40 mg Ceftriaxone Sodium 1 gm/ (Dextrose) 50 mls @ 100 mls/hr IVPB DAILY [facility] Last Admin: 07/09/18 09:43 Dose: 100 mls/hr Metoprolol Succinate (Toprol Xl -) 50 mg PO DAILY [facility] Last Admin: 07/09/18 09:43 Dose: 50 mg Multivitamins/Minerals/Vitamin C (Tab-A-Vit -) 1 tab PO DAILY [facility] Last Admin: 07/09/18 09:43 Dose: 1 tab Ondansetron HCl (Zofran Injection) 4 mg IVPUSH Q6H PRN PRN Reason: NAUSEA AND/OR VOMITING Pantoprazole Sodium (Protonix -) 40 mg PO DAILY [facility] Last Admin: 07/09/18 09:43 Dose: 40 mg Phenytoin Sodium (Phenytoin Sodium) 500 mg IVPB HS [facility] Last Admin: 07/08/18 21:31 Dose: 500 mg Tamsulosin HCl (Flomax -) 0.4 mg PO HS [facility] Last Admin: 07/08/18 21:31 Dose: 0.4 mg Warfarin Sodium (Coumadin -) 10 mg PO DAILY@1800 [facility] Last Admin: 07/08/18 17:29 Dose: 10 mg - Objective Vital Signs: Vital Signs Temperature 98.5 F 07/09/18 15:03 Pulse Rate 92 H 07/09/18 15:03 Respiratory Rate 20 07/09/18 15:03 Blood Pressure 129/81 07/09/18 15:03 O2 Sat by Pulse Oximetry (%) 98 07/09/18 09:00 Constitutional: Yes: No Distress, Calm Cardiovascular: Yes: Regular Rate and Rhythm Respiratory: Yes: CTA Bilaterally (no wheezing or rales.) Gastrointestinal: Yes: Soft (NT, no rebound.), Abdomen, Obese Edema: Yes Edema: LLE: 1+, RLE: Trace Peripheral Pulses WNL: Yes Neurological: Yes: Alert, Oriented ...Motor Strength: WNL Labs: CBC, BMP 07/09/18 06:20 07/09/18 06:20 INR, PTT INR 1.38 (0.83-1.09) H 07/09/18 06:20 Laboratory Tests 07/09/18 07/09/18 07/09/18 06:20 06:20 06:20 WBC 8.5 Hgb 8.9 L Hct 26.5 L Plt Count 331 INR 1.38 H Sodium 139 Potassium 4.0 BUN 20 H Creatinine 0.9 Magnesium 2.2 Assessment/Plan Assessment/Plan 67M h/o HTN, HLD, h/o DVT p/w tachycardia after total knee replacement 1. Tachycardia: - no central PE on CTA - HRs likely sec to anemia- stable now after PRBC 2. Hypotension, CHAD: resolved. -improved after IVF, PRBC 3. H/o VTEs, on chcf warfarin: - subtherapeutic lovenox dose given preop as bridging - L pop vein DVT here on sonogram - H/H stable--cont monitoring - s/p IVC filter 06/30 - AC management per heme: Lovenox to coumadin, check daily INR 4. Pleural effusion: - had been on IV lasix. CXR improved, asymptomatic. Continue PO Lasix 5. VTach: - Keep K>4 and Mg >2 - EF normal 6. HTN: -Stable on Amlodipine and Toprol. 7. S/p L TKR: - manage per ortho; on full AC as above.
--- NOTE | 2018-07-09 17:34 | PN ---
Physical Exam: SUBJECTIVE: Patient seen and examined at bedside. Offers no new complaints. Is ambulating. OBJECTIVE: Vital Signs Temperature 98.5 F 07/09/18 16:30 Pulse Rate 95 H 07/09/18 16:30 Respiratory Rate 18 07/09/18 16:30 Blood Pressure 141/77 07/09/18 16:30 O2 Sat by Pulse Oximetry (%) 98 07/09/18 09:00 GENERAL: Awake, alert, and fully oriented, in no acute distress. EYES: sclera anicteric, conjunctiva clear. EARS, NOSE, THROAT: Ears normal, nares patent NECK: Normal range of motion LUNGS: Breath sounds equal, clear to auscultation bilaterally. HEART: RRR, normal S1 and S2 ABDOMEN: Soft, nontender, normoactive bowel sounds. LOWER EXTREMITIES: warm, well-perfused. No calf tenderness. L leg over knee and thigh with more fluid causing skin tightening compared to R but improved since initial assessment. NEUROLOGICAL: Gait not observed. PSYCHIATRIC: Cooperative. Good eye contact. Appropriate mood and affect. SKIN: Warm, dry Laboratory Results - last 24 hr 07/03/18 07/09/18 07/09/18 05:30 06:20 06:20 WBC 8.5 RBC 2.87 L Hgb 8.9 L Hct 26.5 L MCV 92.6 MCH 31.2 MCHC 33.7 RDW 15.1 Plt Count 331 MPV 7.6 PT with INR 16.30 H INR 1.38 H PTT (Actin FS) 34.2 Sodium Potassium Chloride Carbon Dioxide Anion Gap BUN Creatinine Creat Clearance w eGFR Random Glucose Calcium Magnesium Prothrombin [id number] Mut 07/09/18 06:20 WBC RBC Hgb Hct MCV MCH MCHC RDW Plt Count MPV PT with INR INR PTT (Actin FS) Sodium 139 Potassium 4.0 Chloride 103 Carbon Dioxide 29 Anion Gap 7 L BUN 20 H Creatinine 0.9 Creat Clearance w eGFR 83.67 Random Glucose 92 Calcium 8.1 L Magnesium 2.2 Prothrombin [id number] Mut Active Medications Generic Name Dose Route Start Last Admin Trade Name Freq PRN Reason Stop Dose Admin Acetaminophen 1,000 mg 07/01/18 22:25 Ofirmev Injection - IVPB Q6H PRN FEVER Amlodipine Besylate 5 mg 07/09/18 10:00 07/09/18 09:43 Norvasc - PO 5 mg DAILY [facility] Administration Enoxaparin Sodium 120 mg 07/04/18 10:45 07/09/18 13:53 Lovenox - SQ 120 mg Q12H [facility]ERNANDA Administration Finasteride 5 mg 07/02/18 22:00 07/08/18 21:31 Proscar - PO 5 mg HS [facility]ERNANDA Administration Furosemide 40 mg 07/09/18 10:00 07/09/18 09:43 Lasix - PO 40 mg DAILY [facility]NANDA Administration Ceftriaxone Sodium 1 gm/ 50 mls @ 100 mls/hr 07/02/18 10:00 07/09/18 09:43 Dextrose IVPB 100 mls/hr DAILY [facility]ERNANDA Administration Metoprolol Succinate 50 mg 07/02/18 10:00 07/09/18 09:43 Toprol Xl - PO 50 mg DAILY [facility]ERNANDA Administration Multivitamins/Minerals/Vitamin C 1 tab 07/02/18 10:00 07/09/18 09:43 Tab-A-Vit - PO 1 tab DAILY [facility]ERNANDA Administration Ondansetron HCl 4 mg 07/01/18 22:25 Zofran Injection IVPUSH Q6H PRN NAUSEA AND/OR VOMITING Pantoprazole Sodium 40 mg 07/02/18 10:00 07/09/18 09:43 Protonix - PO 40 mg DAILY [facility]ERNANDA Administration Phenytoin Sodium 500 mg 07/01/18 22:15 07/08/18 21:31 Phenytoin Sodium IVPB 500 mg HS [facility]ERNANDA Administration Tamsulosin HCl 0.4 mg 07/02/18 22:00 07/08/18 21:31 Flomax - PO 0.4 mg HS FERNANDA Administration Warfarin Sodium 10 mg 07/07/18 18:00 07/08/18 17:29 Coumadin - PO 10 mg DAILY@1800 [facility]NANDA Administration ASSESSMENT/PLAN: 67 y/o M with PMH of HTN, HLD, RLE DVT (on coumadin), seizure d/o, OA of L knee (s/p knee replacement on 06/25/18), BPH currently hospitalized after his L knee replacement due to bleeding into his knee s/p fall and acute LLE DVT. LLE Acute DVT Hx of RLE DVT s/p L knee replacement s/p fall s/p IVC filter Anemia -Bridge from lovenox to coumadin. INR subtherapeutic. Monitor INR. c/w coumadin. Thrombophilia w/u done her so far negative. -Hgb stable, continue to monitor -c/w coumadin for 3 months and will need furter re-evaluation for thrombophilia. -Dr. Ulises Irene [phone] is PCP who prescribed him his coumadin before ( dosed at 5mg and 4mg alternating). Unable to get a hold of him but may be helpful to find out why pt was on senior living AC. Visit type - Emergency Visit Emergency Visit: Yes ED Registration Date: 06/25/18 Care time: The patient presented to the Emergency Department on the above date and was hospitalized for further evaluation of their emergent condition. - New Patient This patient is new to me today: No - Critical Care Critical Care patient: No
[2018-07-09] MEDS: WARFARIN NA 5 MG TABLET (UD) PO SCH (17:51)
--- NOTE | 2018-07-09 17:58 | PN ---
Teaching Attending Note Name of Resident: Bert Evans ATTENDING PHYSICIAN STATEMENT I saw and evaluated the patient. I reviewed the resident's note and discussed the case with the resident. I agree with the resident's findings and plan as documented. SUBJECTIVE: Patient seen and examined Clinically improved but still with some tenseness of medial aspect of left thigh Last Vital Signs Temp Pulse Resp BP Pulse Ox 98.5 F 95 H 18 141/77 98 07/09/18 16:30 07/09/18 16:30 07/09/18 16:30 07/09/18 16:30 07/09/18 09:00 Lungs - clear [id number] Abd- soft Ext- knee (left) dressing some swelling and tautness to medial aspect of left inner thigh CBC, BMP 07/09/18 06:20 07/09/18 06:20 Current Medications Generic Name Dose Route Start Last Admin Trade Name Freq PRN Reason Stop Dose Admin Acetaminophen 1,000 mg 07/01/18 22:25 Ofirmev Injection - IVPB Q6H PRN FEVER Amlodipine Besylate 5 mg 07/09/18 10:00 07/09/18 09:43 Norvasc - PO 5 mg DAILY [facility] Administration Enoxaparin Sodium 120 mg 07/04/18 10:45 07/09/18 13:53 Lovenox - SQ 120 mg Q12H [facility]ERNANDA Administration Finasteride 5 mg 07/02/18 22:00 07/08/18 21:31 Proscar - PO 5 mg HS [facility]ERNANDA Administration Furosemide 40 mg 07/09/18 10:00 07/09/18 09:43 Lasix - PO 40 mg DAILY [facility]NDA Administration Ceftriaxone Sodium 1 gm/ 50 mls @ 100 mls/hr 07/02/18 10:00 07/09/18 09:43 Dextrose IVPB 100 mls/hr DAILY [facility]NDA Administration Metoprolol Succinate 50 mg 07/02/18 10:00 07/09/18 09:43 Toprol Xl - PO 50 mg DAILY [facility]NDA Administration Multivitamins/Minerals/Vitamin C 1 tab 07/02/18 10:00 07/09/18 09:43 Tab-A-Vit - PO 1 tab DAILY [facility] Administration Ondansetron HCl 4 mg 07/01/18 22:25 Zofran Injection IVPUSH Q6H PRN NAUSEA AND/OR VOMITING Pantoprazole Sodium 40 mg 07/02/18 10:00 07/09/18 09:43 Protonix - PO 40 mg DAILY [facility] Administration Phenytoin Sodium 500 mg 07/01/18 22:15 07/08/18 21:31 Phenytoin Sodium IVPB 500 mg HS [facility]ERNANDA Administration Tamsulosin HCl 0.4 mg 07/02/18 22:00 07/08/18 21:31 Flomax - PO 0.4 mg HS [facility]ERNANDA Administration Warfarin Sodium 10 mg 07/07/18 18:00 07/09/18 17:51 Coumadin - PO 10 mg DAILY@1800 [facility] Administration OBJECTIVE: Impression: Left knee replacemnt DVT popliteal area Plan :bridging lovenox - coumadin. Thrombophilia- FVL, prothrombin gene2, ARMANDO, beta 2- glycoprotein. LAC- all negative. ASSESSMENT AND PLAN:
--- NOTE | 2018-07-09 18:49 | PN ---
Physical Exam: SUBJECTIVE: Patient seen and examined -pt steadily making progress with PT -awaiting [employer] auth for rehab OBJECTIVE: Vital Signs Period Temp Pulse Resp BP Sys/Gee Pulse Ox Last 24 Hr 98.5 F-99.8 F 92-99 18-20 129-149/72-90 98 GENERAL: The patient is awake, alert, and fully oriented, in no acute distress. HEAD: Normal with no signs of trauma. EYES: PERRL, sclera anicteric, conjunctiva clear. ENT: nares patent, oropharynx clear without exudates, poor dentition, moist mucous membranes. NECK: Trachea midline, full range of motion, supple. LUNGS: Breath sounds equal, clear to auscultation bilaterally, no wheezes, no crackles, no accessory muscle use. HEART: Regular rate and rhythm, S1, S2 without murmur, rub or gallop. ABDOMEN: obese abdomen, Soft, nontender,normoactive bowel sounds, no guarding, no rebound EXTREMITIES: 2+ pulses, warm, well-perfused, +2 edema RLE, +3 edema LLE. Left knee with clean dry dressing NEUROLOGICAL: Normal speech, slow steady gait with rollator PSYCH: Normal mood, normal affect. SKIN: Warm, dry, normal turgor Laboratory Results - last 24 hr 07/03/18 07/09/18 07/09/18 05:30 06:20 06:20 WBC 8.5 RBC 2.87 L Hgb 8.9 L Hct 26.5 L MCV 92.6 MCH 31.2 MCHC 33.7 RDW 15.1 Plt Count 331 MPV 7.6 PT with INR 16.30 H INR 1.38 H PTT (Actin FS) 34.2 Sodium Potassium Chloride Carbon Dioxide Anion Gap BUN Creatinine Creat Clearance w eGFR Random Glucose Calcium Magnesium Prothrombin [id number] Mut 07/09/18 06:20 WBC RBC Hgb Hct MCV MCH MCHC RDW Plt Count MPV PT with INR INR PTT (Actin FS) Sodium 139 Potassium 4.0 Chloride 103 Carbon Dioxide 29 Anion Gap 7 L BUN 20 H Creatinine 0.9 Creat Clearance w eGFR 83.67 Random Glucose 92 Calcium 8.1 L Magnesium 2.2 Prothrombin [id number] Mut Active Medications Generic Name Dose Route Start Last Admin Trade Name Freq PRN Reason Stop Dose Admin Acetaminophen 1,000 mg 07/01/18 22:25 Ofirmev Injection - IVPB Q6H PRN FEVER Amlodipine Besylate 5 mg 07/09/18 10:00 07/09/18 09:43 Norvasc - PO 5 mg DAILY FERNANDA Administration Enoxaparin Sodium 120 mg 07/04/18 10:45 07/09/18 13:53 Lovenox - SQ 120 mg Q12H FERNANDA Administration Finasteride 5 mg 07/02/18 22:00 07/08/18 21:31 Proscar - PO 5 mg HS FERNANDA Administration Furosemide 40 mg 07/09/18 10:00 07/09/18 09:43 Lasix - PO 40 mg DAILY FERNANDA Administration Ceftriaxone Sodium 1 gm/ 50 mls @ 100 mls/hr 07/02/18 10:00 07/09/18 09:43 Dextrose IVPB 100 mls/hr DAILY FERNANDA Administration Metoprolol Succinate 50 mg 07/02/18 10:00 07/09/18 09:43 Toprol Xl - PO 50 mg DAILY FERNANDA Administration Multivitamins/Minerals/Vitamin C 1 tab 07/02/18 10:00 07/09/18 09:43 Tab-A-Vit - PO 1 tab DAILY FERNANDA Administration Ondansetron HCl 4 mg 07/01/18 22:25 Zofran Injection IVPUSH Q6H PRN NAUSEA AND/OR VOMITING Pantoprazole Sodium 40 mg 07/02/18 10:00 07/09/18 09:43 Protonix - PO 40 mg DAILY [facility]ERNANDA Administration Phenytoin Sodium 500 mg 07/01/18 22:15 07/08/18 21:31 Phenytoin Sodium IVPB 500 mg HS FERNANDA Administration Tamsulosin HCl 0.4 mg 07/02/18 22:00 07/08/18 21:31 Flomax - PO 0.4 mg HS FERNANDA Administration Warfarin Sodium 10 mg 07/07/18 18:00 07/09/18 17:51 Coumadin - PO 10 mg DAILY@1800 FERNANDA Administration ASSESSMENT/PLAN:67 year-old male with a past medical history of hypertension, HLD, 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 s/p b/l knee replacement (L knee replacement on 06/25) transferred from [facility] for acute intra-articular hemorrhage after a mechanical fall post-op dy # 1. He is now s/p 2 units of prbc with stable H/H. Hospital course also c/b left popliteal DVT, he is s/p IVF filter on 06/30 and is now being transitioned from Lovenox to coumadin. MSK: s/p left total knee replacement. continue pain medications (on oxycodone). continue bowel regimen. PT daily. surgery following. Hematology: Left popliteal DVT, h/o prior DVT coumadin 10mg daily. Daily CBC and INR (goal 2-3), will d/c lovenox once pt has therapeutic INR. bleeding precautions Thrombophilia labs were negative: FVL, prothrombin gene2, ARMANDO, beta 2- glycoprotein. Neuro: Seizure disorder Continue Dilantin Card: Hypertension, HTN continue metoprolol 50mg daily, amlodopine 10mg daily, lisinopril 40mg daily, HLD: pt not taking statin - send AM fasting lipids Pulm: Large left pleural effusion. Cont ceftriaxone. Pulmonary following. recs appreciated. ID: [id number] with negative blood culture Empiric ceftriaxone 1gm daily x 9 days, will d/c today and observe off abx : BPH -continue flomax and proscar FEB tolerating po monitor electrolytes prophylaxis Lovenox bid to coumadin bridge. PPI daily MVI Code status: Full Dispo: d/c to rehab once insurance auth obtained Problem List - Problems (1) BPH (benign prostatic hyperplasia) Code(s): N40.0 - BENIGN PROSTATIC HYPERPLASIA WITHOUT LOWER URINRY TRACT SYMP (2) Anemia Code(s): D64.9 - ANEMIA, UNSPECIFIED (3) DVT (deep venous thrombosis) Code(s): I82.409 - ACUTE EMBOLISM AND THOMBOS UNSP DEEP VN UNSP LOWER EXTREMITY (4) HTN (hypertension) Code(s): I10 - ESSENTIAL (PRIMARY) HYPERTENSION (5) Hypercholesteremia Code(s): E78.00 - PURE HYPERCHOLESTEROLEMIA, UNSPECIFIED (6) Morbid obesity with BMI of 40.0-44.9, adult Code(s): E66.01 - MORBID (SEVERE) OBESITY DUE TO EXCESS CALORIES; Z68.41 - BODY MASS INDEX (BMI) 40.0-44.9, ADULT (7) Osteoarthritis of left knee Code(s): M17.12 - UNILATERAL PRIMARY OSTEOARTHRITIS, LEFT KNEE (8) Seizures Code(s): R56.9 - UNSPECIFIED CONVULSIONS Visit type - Emergency Visit Emergency Visit: No - New Patient This patient is new to me today: No - Critical Care Critical Care patient: No - Discharge Referral Referred to [facility] Med P.C.: No
[2018-07-09] MEDS: TAMSULOSIN HCL 0.4 MG CAP PO SCH (22:38)
[2018-07-09] MEDS: FINASTERIDE 5 MG TABLET (FP) PO SCH (22:38)
[2018-07-09] MEDS: PHENYTOIN SODIUM 250 MG/5 ML VIAL IVPB SCH (22:39)
[2018-07-10 06:06] LABS: HEMOGLOBIN 8.6 GM/dL (11.7-16.9); MCH 31.6 pg (25.7-33.7); MCHC 34.5 g/dl (32.0-35.9); MEAN CELL VOLUME 91.6 fl (80-96); MEAN PLT VOLUME 7.1 fl (7.5-11.1); PLATELET COUNT 315 K/MM3 (134-434); RBC 2.73 M/mm3 (4.00-5.60); RDW 15.6 % (11.9-15.9); WHITE BLOOD COUNT 6.9 K/mm3 (4.0-10.0)
[2018-07-10 06:19] LABS: INR 1.59 (0.83-1.09); PROTHROMBIN TIME (PATIENT) 18.9 SEC (9.7-13.0)
[2018-07-10 06:35] LABS: ALBUMIN 2.2 g/dl (3.4-5.0); ALK PHOS 122 U/L (45-117); ANION GAP 4 MMOL/L (8-16); BILIRUBIN,TOTAL 0.7 mg/dL (0.2-1); BLOOD UREA NITROGEN 20 mg/dL (7-18); CALCIUM 7.9 mg/dL (8.5-10.1); CHLORIDE 103 mmol/L (98-107); CO2 28 mmol/L (21-32); CREATININE 0.9 mg/dL (0.55-1.3); GLUCOSE,RANDOM 91 mg/dL (74-106); POTASSIUM 3.9 mmol/L (3.5-5.1); SGOT/AST 63 U/L (15-37); SGPT/ALT 101 U/L (13-61); SODIUM 135 mmol/L (136-145); TOT PROT 6.2 g/dl (6.4-8.2)
[2018-07-10] MEDS: ENOXAPARIN NA (PORCINE) 120 MG/0.8 ML DISP.SYRIN SQ SCH ×2 (10:56→22:28)
[2018-07-10] MEDS: PANTOPRAZOLE 40 MG TABLET (FP) PO SCH (10:57)
[2018-07-10] MEDS: amLODIPine BESYLATE 5 MG TABLET (FP) PO SCH (10:57)
[2018-07-10] MEDS: FUROSEMIDE 40 MG TABLET (FP) PO SCH (10:57)
[2018-07-10] MEDS: MULTIVITAMINS (DAILY MVI) TABLET (FP) PO SCH (10:57)
--- NOTE | 2018-07-10 16:10 | PN ---
Progress Note (short form) - Note Progress Note: s: no chest pain, palps, dizziness Current Medications Amlodipine Besylate (Norvasc -) 5 mg PO DAILY [facility] Last Admin: 07/10/18 10:57 Dose: 5 mg Enoxaparin Sodium (Lovenox -) 120 mg SQ Q12H [facility] Last Admin: 07/10/18 10:56 Dose: 120 mg Finasteride (Proscar -) 5 mg PO [facility] Last Admin: 07/09/18 22:38 Dose: 5 mg Furosemide (Lasix -) 40 mg PO DAILY [facility] Last Admin: 07/10/18 10:57 Dose: 40 mg Metoprolol Succinate (Toprol Xl -) 50 mg PO DAILY [facility] Last Admin: 07/10/18 10:57 Dose: 50 mg Multivitamins/Minerals/Vitamin C (Tab-A-Vit -) 1 tab PO DAILY [facility] Last Admin: 07/10/18 10:57 Dose: 1 tab Ondansetron HCl (Zofran Injection) 4 mg IVPUSH Q6H PRN PRN Reason: NAUSEA AND/OR VOMITING Pantoprazole Sodium (Protonix -) 40 mg PO DAILY [facility] Last Admin: 07/10/18 10:57 Dose: 40 mg Phenytoin Sodium (Phenytoin Sodium) 500 mg IVPB [facility] Last Admin: 07/09/18 22:39 Dose: 500 mg Tamsulosin HCl (Flomax -) 0.4 mg PO HS [facility] Last Admin: 07/09/18 22:38 Dose: 0.4 mg Warfarin Sodium (Coumadin -) 10 mg PO DAILY@1800 [facility] Last Admin: 07/09/18 17:51 Dose: 10 mg Vital Signs Period Temp Pulse Resp BP Sys/Gee Pulse Ox Last 24 Hr 98.5 F-99.5 F 90-97 18-18 119-142/69-87 Constitutional: Yes: No Distress, Calm Cardiovascular: Yes: Regular Rate and Rhythm Respiratory: Yes: CTA Bilaterally (no wheezing or rales.) Gastrointestinal: Yes: Soft (NT, no rebound.), Abdomen, Obese Edema: Yes Edema: LLE: 1+, RLE: Trace Peripheral Pulses WNL: Yes Neurological: Yes: Alert, Oriented ...Motor Strength: WNL Assessment/Plan 67M h/o HTN, HLD, h/o DVT p/w tachycardia after total knee replacement 1. Tachycardia: - no central PE on CTA - HRs likely sec to anemia- stable now after PRBC 2. Hypotension, CHAD: resolved. -improved after IVF, PRBC 3. H/o VTEs, on retirement warfarin: - subtherapeutic lovenox dose given preop as bridging - L pop vein DVT here on sonogram - H/H stable--cont monitoring - s/p IVC filter 06/30 - AC management per heme: Lovenox to coumadin, check daily INR 4. Pleural effusion: - had been on IV lasix. CXR improved, asymptomatic. Continue PO Lasix 5. VTach: - Keep K>4 and Mg >2 - EF normal 6. HTN: -Stable on Amlodipine and Toprol. 7. S/p L TKR: - manage per ortho; on full AC as above.
[2018-07-10] MEDS ORDERED: WARFARIN NA 5 MG TABLET (UD) PO SCH (17:05)
--- NOTE | 2018-07-10 17:09 | PN ---
Progress Note (short form) - Note Progress Note: asymptomatic. denies CP, SOB, fever, chills, N/V/C/D Current Medications Generic Name Dose Route Start Last Admin Trade Name Latrellq PRN Reason Stop Dose Admin Amlodipine Besylate 5 mg 07/09/18 10:00 07/10/18 10:57 Norvasc - PO 5 mg DAILY [facility]ER[facility]NDA Administration Enoxaparin Sodium 120 mg 07/04/18 10:45 07/10/18 10:56 Lovenox - SQ 120 mg Q12H [facility]ERNANDA Administration Finasteride 5 mg 07/02/18 22:00 07/09/18 22:38 Proscar - PO 5 mg HS [facility]ERNANDA Administration Furosemide 40 mg 07/09/18 10:00 07/10/18 10:57 Lasix - PO 40 mg DAILY [facility]ERNANDA Administration Metoprolol Succinate 50 mg 07/02/18 10:00 07/10/18 10:57 Toprol Xl - PO 50 mg DAILY FERNANDA Administration Multivitamins/Minerals/Vitamin C 1 tab 07/02/18 10:00 07/10/18 10:57 Tab-A-Vit - PO 1 tab DAILY [facility]ERNANDA Administration Ondansetron HCl 4 mg 07/01/18 22:25 Zofran Injection IVPUSH Q6H PRN NAUSEA AND/OR VOMITING Pantoprazole Sodium 40 mg 07/02/18 10:00 07/10/18 10:57 Protonix - PO 40 mg DAILY [facility]ERNANDA Administration Phenytoin Sodium 500 mg 07/01/18 22:15 07/09/18 22:39 Phenytoin Sodium IVPB 500 mg HS FERNANDA Administration Tamsulosin HCl 0.4 mg 07/02/18 22:00 07/09/18 22:38 Flomax - PO 0.4 mg HS [facility]ERNANDA Administration Warfarin Sodium 10 mg 07/07/18 18:00 07/09/18 17:51 Coumadin - PO 10 mg DAILY@1800 FERNANDA Administration Last Vital Signs Temp Pulse Resp BP Pulse Ox 98.5 F 90 18 131/76 98 07/10/18 14:32 07/10/18 14:32 07/10/18 14:32 07/10/18 14:32 07/09/18 09:00 General NAD CV S1 S2 RRR no murmur/rub/gallop Lungs CTA B/L no wheezing/rales/rhonchi Abdomen soft NT/ND Extremities trace pitting edema. no tenderness at the knee CBCD WBC 6.9 K/mm3 (4.0-10.0) 07/10/18 05:55 RBC 2.73 M/mm3 (4.00-5.60) L 07/10/18 05:55 Hgb 8.6 GM/dL (11.7-16.9) L 07/10/18 05:55 Hct 25.0 % (35.4-49) L 07/10/18 05:55 MCV 91.6 fl (80-96) 07/10/18 05:55 MCHC 34.5 g/dl (32.0-35.9) 07/10/18 05:55 RDW 15.6 % (11.9-15.9) 07/10/18 05:55 Plt Count 315 K/MM3 (134-434) 07/10/18 05:55 MPV 7.1 fl (7.5-11.1) L 07/10/18 05:55 CMP Sodium 135 mmol/L (136-145) L 07/10/18 05:55 Potassium 3.9 mmol/L (3.5-5.1) 07/10/18 05:55 Chloride 103 mmol/L (98-107) 07/10/18 05:55 Carbon Dioxide 28 mmol/L (21-32) 07/10/18 05:55 Anion Gap 4 MMOL/L (8-16) L 07/10/18 05:55 BUN 20 mg/dL (7-18) H 07/10/18 05:55 Creatinine 0.9 mg/dL (0.55-1.3) 07/10/18 05:55 Creat Clearance w eGFR 83.67 (>60) 07/10/18 05:55 Calcium 7.9 mg/dL (8.5-10.1) L 07/10/18 05:55 Total Bilirubin 0.7 mg/dL (0.2-1) 07/10/18 05:55 AST 63 U/L (15-37) H 07/10/18 05:55 ALT 101 U/L (13-61) H 07/10/18 05:55 Alkaline Phosphatase 122 U/L (45-117) H 07/10/18 05:55 Total Protein 6.2 g/dl (6.4-8.2) L 07/10/18 05:55 Albumin 2.2 g/dl (3.4-5.0) L 07/10/18 05:55 Assessment and PLan 67yo M wtih PMH DVT on coumadin s/p IVC filter, seiuzre and HTN came for TKR which was completed on 1. S/p TKR- will need ROBLES. pain control. ortho follow up as outpatient 2. Subtherapeutic INR- on lovenox bridge. states INR has been labile since IVC filter placed. INR remains low. will increase coumadin to 12mg. monitor INR daily 3. anemia- s/p 2units PRBC this hospital stay. no indication for transfusion at this time 4. FUO- was on ceftriaxone empirically. now off abx. afebrile and normal leukocytosios 5. HTN- controlled. cont home medications 6. diarrhea- resolved. neg for cdiff 7. seizure- cont home medicaitons 8. DVT ppx- coumadin-lovenox bridge 9. medically optimized for discharge, awaiting insurance auth for ROBLES Visit type - Emergency Visit Emergency Visit: Yes ED Registration Date: 06/25/18 Care time: The patient presented to the Emergency Department on the above date and was hospitalized for further evaluation of their emergent condition. - New Patient This patient is new to me today: Yes Date on this admission: 07/10/18 - Critical Care Critical Care patient: No - Discharge Referral Referred to [facility] Med P.C.: No
[2018-07-10] MEDS ORDERED: WARFARIN NA 2 MG TABLET (UD) ONE (17:20)
[2018-07-10] MEDS ORDERED: WARFARIN NA 10 MG TABLET (FP) ONE (17:20)
[2018-07-10] MEDS: WARFARIN NA 10 MG, WARFARIN NA 2 MG PO SCH (17:21)
[2018-07-10] MEDS ORDERED: PT OWN MED DRAWER 7, Y5N ONE ×2 (21:19→22:16)
[2018-07-10] MEDS: FINASTERIDE 5 MG TABLET (FP) PO SCH (21:34)
[2018-07-10] MEDS: TAMSULOSIN HCL 0.4 MG CAP PO SCH (21:34)
[2018-07-10] MEDS: PHENYTOIN SODIUM 250 MG/5 ML VIAL IVPB SCH (22:29)
[2018-07-11 08:21] LABS: HEMATOCRIT 27.1 % (35.4-49); MCH 31.1 pg (25.7-33.7); MCHC 33.3 g/dl (32.0-35.9); MEAN CELL VOLUME 93.2 fl (80-96); MEAN PLT VOLUME 7.6 fl (7.5-11.1); PLATELET COUNT 317 K/MM3 (134-434); RBC 2.91 M/mm3 (4.00-5.60); WHITE BLOOD COUNT 5.6 K/mm3 (4.0-10.0)
[2018-07-11 08:39] LABS: ALBUMIN 2.4 g/dl (3.4-5.0); ALK PHOS 126 U/L (45-117); ANION GAP 5 MMOL/L (8-16); BILIRUBIN,TOTAL 0.6 mg/dL (0.2-1); BLOOD UREA NITROGEN 18 mg/dL (7-18); CALCIUM 8.5 mg/dL (8.5-10.1); CHLORIDE 104 mmol/L (98-107); CO2 29 mmol/L (21-32); CREATININE 0.8 mg/dL (0.55-1.3); GLUCOSE,RANDOM 88 mg/dL (74-106); POTASSIUM 4.2 mmol/L (3.5-5.1); SGOT/AST 54 U/L (15-37); SGPT/ALT 92 U/L (13-61); SODIUM 138 mmol/L (136-145); TOT PROT 6.3 g/dl (6.4-8.2)
[2018-07-11 09:35] LABS: INR 1.79 (0.83-1.09); PROTHROMBIN TIME (PATIENT) 21.3 SEC (9.7-13.0)
[2018-07-11] MEDS: amLODIPine BESYLATE 5 MG TABLET (FP) PO SCH (10:51)
[2018-07-11] MEDS: PANTOPRAZOLE 40 MG TABLET (FP) PO SCH (10:51)
[2018-07-11] MEDS: MULTIVITAMINS (DAILY MVI) TABLET (FP) PO SCH (10:51)
[2018-07-11] MEDS: FUROSEMIDE 40 MG TABLET (FP) PO SCH (10:51)
[2018-07-11] MEDS: ENOXAPARIN NA (PORCINE) 120 MG/0.8 ML DISP.SYRIN SQ SCH ×2 (10:52→21:49)
--- NOTE | 2018-07-11 11:45 | PN ---
Progress Note (short form) - Note Progress Note: Patient seen and examined Improving with rehab LLE less discomfort Last Vital Signs Temp Pulse Resp BP Pulse Ox 99.2 F 92 H 20 147/86 99 07/11/18 06:00 07/11/18 06:00 07/11/18 06:00 07/11/18 06:00 07/10/18 21:00 HEENT: MASSIEL, EOM Intact Cor: RSR, No murmurs, No gallops Lungs: Clear to P&A Abd: Soft, Normal bowel sounds, No organomegaly Ext LLE edema Skin: No rashes, Integument intact CBC, BMP 07/11/18 07:25 07/11/18 07:25 Current Medications Generic Name Dose Route Start Last Admin Trade Name Freq PRN Reason Stop Dose Admin Amlodipine Besylate 5 mg 07/09/18 10:00 07/11/18 10:51 Norvasc - PO 5 mg DAILY [facility]ERNANDA Administration Enoxaparin Sodium 120 mg 07/04/18 10:45 07/11/18 10:52 Lovenox - SQ 120 mg Q12H FERNANDA Administration Finasteride 5 mg 07/02/18 22:00 07/10/18 21:34 Proscar - PO 5 mg HS FERNANDA Administration Furosemide 40 mg 07/09/18 10:00 07/11/18 10:51 Lasix - PO 40 mg DAILY FERNANDA Administration Metoprolol Succinate 50 mg 07/02/18 10:00 07/11/18 10:51 Toprol Xl - PO 50 mg DAILY FERNANDA Administration Multivitamins/Minerals/Vitamin C 1 tab 07/02/18 10:00 07/11/18 10:51 Tab-A-Vit - PO 1 tab DAILY [facility]ERNANDA Administration Ondansetron HCl 4 mg 07/01/18 22:25 Zofran Injection IVPUSH Q6H PRN NAUSEA AND/OR VOMITING Pantoprazole Sodium 40 mg 07/02/18 10:00 07/11/18 10:51 Protonix - PO 40 mg DAILY [facility]ERNANDA Administration Phenytoin Sodium 500 mg 07/01/18 22:15 07/10/18 22:29 Phenytoin Sodium IVPB 500 mg HS FERNANDA Administration Tamsulosin HCl 0.4 mg 07/02/18 22:00 07/10/18 21:34 Flomax - PO 0.4 mg HS FERNANDA Administration Warfarin Sodium 10 mg/ 12 mg 07/10/18 18:00 07/10/18 17:21 Warfarin Sodium 2 mg PO 12 mg DAILY@1800 FERNANDA Administration Impression TKR DVT IVC filter Bridge lovenox --coumadin -still subtherapeutic - with INR@ 1.79 Thrombophilia work up to date- normal Factor V leyden- negative Prothrombin Gene [id number] Homocysteine- normal Lupus anticoagulant - negative Anticardiolipin - negative MTHFR -pending Protein S,C, ATIII not done as they can artifactually be low on heparin or coumadin
[2018-07-11 13:29] VITALS: BMI 41.5
--- NOTE | 2018-07-11 16:21 | PN ---
Progress Note (short form) - Note Progress Note: s: no chest pain, palps, dizziness, lightheadedness sob Current Medications Generic Name Dose Route Start Last Admin Trade Name Freq PRN Reason Stop Dose Admin Amlodipine Besylate 5 mg 07/09/18 10:00 07/11/18 10:51 Norvasc - PO 5 mg DAILY FERNANDA Administration Enoxaparin Sodium 120 mg 07/04/18 10:45 07/11/18 10:52 Lovenox - SQ 120 mg Q12H FERNANDA Administration Finasteride 5 mg 07/02/18 22:00 07/10/18 21:34 Proscar - PO 5 mg HS FERNANDA Administration Furosemide 40 mg 07/09/18 10:00 07/11/18 10:51 Lasix - PO 40 mg DAILY FERNANDA Administration Metoprolol Succinate 50 mg 07/02/18 10:00 07/11/18 10:51 Toprol Xl - PO 50 mg DAILY FERNANDA Administration Multivitamins/Minerals/Vitamin C 1 tab 07/02/18 10:00 07/11/18 10:51 Tab-A-Vit - PO 1 tab DAILY [facility] Administration Ondansetron HCl 4 mg 07/01/18 22:25 Zofran Injection IVPUSH Q6H PRN NAUSEA AND/OR VOMITING Pantoprazole Sodium 40 mg 07/02/18 10:00 07/11/18 10:51 Protonix - PO 40 mg DAILY FERNANDA Administration Phenytoin Sodium 500 mg 07/01/18 22:15 07/10/18 22:29 Phenytoin Sodium IVPB 500 mg HS FERNANDA Administration Tamsulosin HCl 0.4 mg 07/02/18 22:00 07/10/18 21:34 Flomax - PO 0.4 mg HS FERNANDA Administration Warfarin Sodium 10 mg/ 12 mg 07/10/18 18:00 07/10/18 17:21 Warfarin Sodium 2 mg PO 12 mg DAILY@1800 FERNANDA Administration Vital Signs Period Temp Pulse Resp BP Sys/Gee Pulse Ox Last 24 Hr 98.0 F-99.2 F 92-102 18-20 129-147/72-86 99-100 Constitutional: Yes: Well Nourished, No Distress, Calm Cardiovascular: Yes: Regular Rate and Rhythm, S1, S2. No: Gallop, Murmur Respiratory: Yes: Regular, CTA Bilaterally. No: Accessory Muscle Use, Rales Extremities: No: Cold Edema: No Neurological: Yes: Alert Psychiatric: No: Agitated no jaundice diaphoresis CBC, BMP 07/11/18 07:25 07/11/18 07:25 Assessment/Plan 67M h/o HTN, HLD, h/o DVT p/w tachycardia after total knee replacement 1. Tachycardia: - no central PE on CTA - HRs likely sec to anemia- stable now after PRBC 2. Hypotension, CHAD: resolved. -improved after IVF, PRBC 3. H/o VTEs, on halfway warfarin: - subtherapeutic lovenox dose given preop as bridging - L pop vein DVT here on sonogram - H/H stable--cont monitoring - s/p IVC filter 06/30 - AC management per heme: Lovenox to coumadin, check daily INR 4. Pleural effusion: - had been on IV lasix. CXR improved, asymptomatic. Continue PO Lasix 5. VTach: - Keep K>4 and Mg >2 - EF normal 6. HTN: -Stable on Amlodipine and Toprol. 7. S/p L TKR: - manage per ortho; on full AC as above.
--- NOTE | 2018-07-11 17:25 | PN ---
Progress Note (short form) - Note Progress Note: asymptomatic. denies CP, SOB, fever, chills, N/V/C/D Current Medications Generic Name Dose Route Start Last Admin Trade Name Latrellq PRN Reason Stop Dose Admin Amlodipine Besylate 5 mg 07/09/18 10:00 07/11/18 10:51 Norvasc - PO 5 mg DAILY [facility] Administration Enoxaparin Sodium 120 mg 07/04/18 10:45 07/11/18 10:52 Lovenox - SQ 120 mg Q12H [facility]ERNANDA Administration Finasteride 5 mg 07/02/18 22:00 07/10/18 21:34 Proscar - PO 5 mg HS [facility]ERNANDA Administration Furosemide 40 mg 07/09/18 10:00 07/11/18 10:51 Lasix - PO 40 mg DAILY [facility]ERNANDA Administration Metoprolol Succinate 50 mg 07/02/18 10:00 07/11/18 10:51 Toprol Xl - PO 50 mg DAILY [facility]ERNANDA Administration Multivitamins/Minerals/Vitamin C 1 tab 07/02/18 10:00 07/11/18 10:51 Tab-A-Vit - PO 1 tab DAILY [facility] Administration Ondansetron HCl 4 mg 07/01/18 22:25 Zofran Injection IVPUSH Q6H PRN NAUSEA AND/OR VOMITING Pantoprazole Sodium 40 mg 07/02/18 10:00 07/11/18 10:51 Protonix - PO 40 mg DAILY [facility]ERNANDA Administration Phenytoin Sodium 500 mg 07/01/18 22:15 07/10/18 22:29 Phenytoin Sodium IVPB 500 mg HS [facility]ERNANDA Administration Tamsulosin HCl 0.4 mg 07/02/18 22:00 07/10/18 21:34 Flomax - PO 0.4 mg HS [facility]ERNANDA Administration Warfarin Sodium 10 mg/ 12 mg 07/10/18 18:00 07/10/18 17:21 Warfarin Sodium 2 mg PO 12 mg DAILY@1800 FERNANDA Administration Last Vital Signs Temp Pulse Resp BP Pulse Ox 98.4 F 102 H 20 130/82 100 07/11/18 14:39 07/11/18 14:39 07/11/18 14:39 07/11/18 14:39 07/11/18 09:00 General NAD CV S1 S2 RRR no murmur/rub/gallop Lungs CTA B/L no wheezing/rales/rhonchi Abdomen soft NT/ND Extremities trace pitting edema. no tenderness at the knee Abnormal Lab Results 07/11/18 07/11/18 07/11/18 07:25 07:25 07:25 RBC 2.91 L Hgb 9.0 L Hct 27.1 L RDW 16.0 H PT with INR 21.30 H INR 1.79 H Anion Gap 5 L AST 54 H ALT 92 H Alkaline Phosphatase 126 H Total Protein 6.3 L Albumin 2.4 L Assessment and PLan 67yo M wtih PMH DVT on coumadin s/p IVC filter, seiuzre and HTN came for TKR which was completed on 1. S/p TKR- will need ROBLES. pain control. ortho follow up as outpatient 2. Subtherapeutic INR- on lovenox bridge. states INR has been labile since IVC filter placed. INR remains low. coumadin increased to 12mg on 07/10. monitor INR daily 3. anemia- s/p 2units PRBC this hospital stay. no indication for transfusion at this time 4. FUO- was on ceftriaxone empirically. now off abx. afebrile and normal leukocytosios 5. HTN- controlled. cont home medications 6. diarrhea- resolved. neg for cdiff 7. seizure- cont home medicaitons 8. DVT ppx- coumadin-lovenox bridge 9. medically optimized for discharge, awaiting insurance auth for ROBLES Visit type - Emergency Visit Emergency Visit: Yes ED Registration Date: 06/25/18 Care time: The patient presented to the Emergency Department on the above date and was hospitalized for further evaluation of their emergent condition. - New Patient This patient is new to me today: No - Critical Care Critical Care patient: No - Discharge Referral Referred to [facility] Med P.C.: No
[2018-07-11] MEDS ORDERED: WARFARIN NA 10 MG TABLET (FP) ONE (18:19)
[2018-07-11] MEDS ORDERED: WARFARIN NA 2 MG TABLET (UD) ONE (18:19)
[2018-07-11] MEDS: WARFARIN NA 10 MG, WARFARIN NA 2 MG PO SCH (18:21)
[2018-07-11] MEDS: TAMSULOSIN HCL 0.4 MG CAP PO SCH (21:37)
[2018-07-11] MEDS: PHENYTOIN SODIUM 250 MG/5 ML VIAL IVPB SCH (21:38)
[2018-07-11] MEDS: FINASTERIDE 5 MG TABLET (FP) PO SCH (21:38)
[2018-07-12 08:31] LABS: INR 2.18 (0.83-1.09); PROTHROMBIN TIME (PATIENT) 25.9 SEC (9.7-13.0)
[2018-07-12] MEDS: FUROSEMIDE 40 MG TABLET (FP) PO SCH (10:14)
[2018-07-12] MEDS: amLODIPine BESYLATE 5 MG TABLET (FP) PO SCH (10:14)
[2018-07-12] MEDS: PANTOPRAZOLE 40 MG TABLET (FP) PO SCH (10:14)
[2018-07-12] MEDS: MULTIVITAMINS (DAILY MVI) TABLET (FP) PO SCH (10:14)
--- NOTE | 2018-07-12 10:41 | PN ---
Progress Note (short form) - Note Progress Note: OOB to chair. Comfortable on RA. Denies shortness of breath or chest pain. Intake & Output 07/09/18 07/10/18 07/11/18 07/12/18 23:59 23:59 23:59 23:59 Intake Total 400 400 700 Output Total 500 1200 Balance -100 400 -500 Weight 268 lb 12.8 oz 267 lb 8 oz 265 lb 264 lb 4 oz Last Vital Signs Temp Pulse Resp BP Pulse Ox 98.5 F 89 18 133/72 98 07/11/18 22:00 07/11/18 22:00 07/11/18 22:00 07/11/18 22:00 07/11/18 21:00 Active Medications Amlodipine Besylate (Norvasc -) 5 mg PO DAILY [facility] Last Admin: 07/12/18 10:14 Dose: 5 mg Finasteride (Proscar -) 5 mg PO [facility] Last Admin: 07/11/18 21:38 Dose: 5 mg Furosemide (Lasix -) 40 mg PO DAILY [facility] Last Admin: 07/12/18 10:14 Dose: 40 mg Metoprolol Succinate (Toprol Xl -) 50 mg PO DAILY [facility] Last Admin: 07/12/18 10:14 Dose: 50 mg Multivitamins/Minerals/Vitamin C (Tab-A-Vit -) 1 tab PO DAILY [facility] Last Admin: 07/12/18 10:14 Dose: 1 tab Pantoprazole Sodium (Protonix -) 40 mg PO DAILY [facility] Last Admin: 07/12/18 10:14 Dose: 40 mg Phenytoin Sodium (Phenytoin Sodium) 500 mg IVPB [facility] Last Admin: 07/11/18 21:38 Dose: 500 mg Tamsulosin HCl (Flomax -) 0.4 mg PO [facility] Last Admin: 07/11/18 21:37 Dose: 0.4 mg Warfarin Sodium 10 mg/ (Warfarin Sodium 2 mg) 12 mg PO DAILY@1800 [facility] Last Admin: 07/11/18 18:21 Dose: 12 mg Gen: NAD at rest Heart: RRR Lung: decreased breath sounds at the bases Abd: soft, nontender Ext: LLE edema, ecchymoses Laboratory Results - last 24 hr 07/03/18 07/12/18 05:30 07:00 PT with INR 25.90 H INR 2.18 H MTH Folate Reductase IMP: s/p L TKR Acute LLE DVT s/p IVC filter Acute Blood Loss Anemia Sepsis Acute Kidney Injury HTN Hyperlipidemia remote h/o R DVT - AC with coumadin with INR checks - Normal transfusion thresholds - pain control - PT - D/C planning in progress Dr Bergman
[2018-07-12] MEDS ORDERED: PHENYTOIN NA EXTENDED 100 MG CAPSULE (FP) PO ONE (10:50)
--- NOTE | 2018-07-12 10:50 | PN ---
Physical Exam: SUBJECTIVE: Patient seen and examined he is comfortable and has no symptoms ate well and has bm OBJECTIVE: Vital Signs Period Temp Pulse Resp BP Sys/Gee Pulse Ox Last 24 Hr 98.2 F-98.5 F 89-102 18-20 130-143/72-92 98 General NAD CV S1 S2 RRR no murmur/rub/gallop Lungs CTA B/L no wheezing/rales/rhonchi Abdomen soft NT/ND Extremities trace pitting edema on left leg . no tenderness at the knee Laboratory Results - last 24 hr 07/03/18 07/12/18 05:30 07:00 PT with INR 25.90 H INR 2.18 H MTH Folate Reductase Active Medications Generic Name Dose Route Start Last Admin Trade Name Freq PRN Reason Stop Dose Admin Amlodipine Besylate 5 mg 07/09/18 10:00 07/12/18 10:14 Norvasc - PO 5 mg DAILY FERNANDA Administration Finasteride 5 mg 07/02/18 22:00 07/11/18 21:38 Proscar - PO 5 mg HS FERANNDA Administration Furosemide 40 mg 07/09/18 10:00 07/12/18 10:14 Lasix - PO 40 mg DAILY FERNANDA Administration Metoprolol Succinate 50 mg 07/02/18 10:00 07/12/18 10:14 Toprol Xl - PO 50 mg DAILY FERNANDA Administration Multivitamins/Minerals/Vitamin C 1 tab 07/02/18 10:00 07/12/18 10:14 Tab-A-Vit - PO 1 tab DAILY FERNANDA Administration Pantoprazole Sodium 40 mg 07/02/18 10:00 07/12/18 10:14 Protonix - PO 40 mg DAILY FERNANDA Administration Phenytoin Sodium 500 mg 07/01/18 22:15 07/11/18 21:38 Phenytoin Sodium IVPB 500 mg HS FERNANDA Administration Tamsulosin HCl 0.4 mg 07/02/18 22:00 07/11/18 21:37 Flomax - PO 0.4 mg HS FERNANDA Administration Warfarin Sodium 10 mg/ 12 mg 07/10/18 18:00 07/11/18 18:21 Warfarin Sodium 2 mg PO 12 mg DAILY@1800 FERNANDA Administration ASSESSMENT/PLAN: 67yo M wtih PMH DVT on coumadin s/p IVC filter, seiuzre and HTN came for TKR which was completed on 4/10/9 1. S/p TKR- will need ROBLES. pain control. ortho follow up as outpatient 2.therapeutic INR today and will stop lovenox 3. anemia- s/p 2units PRBC this hospital stay. no indication for transfusion at this time 4. HTN- controlled. cont home medications 4. seizure- change dilantin to po 6. DVT ppx- coumadin-lovenox bridge 7. medically optimized for discharge, awaiting insurance auth for ROBLES Visit type - Emergency Visit Emergency Visit: Yes ED Registration Date: 06/25/18 Care time: The patient presented to the Emergency Department on the above date and was hospitalized for further evaluation of their emergent condition. - New Patient This patient is new to me today: Yes Date on this admission: 07/13/18 - Critical Care Critical Care patient: No - Discharge Referral Referred to [facility] Med P.C.: No
[2018-07-12] MEDS ORDERED: WARFARIN NA 10 MG TABLET (FP) ONE (18:27)
[2018-07-12] MEDS ORDERED: WARFARIN NA 2 MG TABLET (UD) ONE (18:27)
[2018-07-12] MEDS: WARFARIN NA 10 MG, WARFARIN NA 2 MG PO SCH (18:30)
[2018-07-12] MEDS: TAMSULOSIN HCL 0.4 MG CAP PO SCH (21:14)
[2018-07-12] MEDS: PHENYTOIN NA EXTENDED 100 MG CAPSULE (FP) PO SCH (21:15)
[2018-07-12] MEDS: FINASTERIDE 5 MG TABLET (FP) PO SCH (21:15)
--- NOTE | 2018-07-12 22:58 | PN ---
Progress Note (short form) - Note Progress Note: 67M s/p LEFT total knee replacement POD #17. Pain well controlled. No acute events overnight. Pt. denies overnight history of headaches, chest pain, shortness of breath, nausea, vomiting, chills, & sweats. (+) [place]; (+) Flatus; (+) BM. (+) Walked with physical therapy team. Tolerating diet. All labs and vitals reviewed. PE: AAO x 3, NAD. L-Knee: Dressing C/D/I. No sub-sartorial tenderness to palpation. NVI distally. A/P: 66F s/p LEFT total knee replacement POD #17. -Pain control. -DVT PPx: -Chemical: Coumadin w/goal INR 2-3. -Mechanical: BARB's. -Incentive spirometry q15 min. -PT/OT/Rehab, OOB. -WBAT LLE. -Diet as tolerated. -Care per medical hospitalist team. -f/u [facility] [place] office within 7-10 days of hospital discharge; call for appointment; . -Discharge planning. -Will follow. Jonathan Langston MD (Orthopaedic Surgery).
[2018-07-13] MEDS: FUROSEMIDE 40 MG TABLET (FP) PO SCH (10:28)
[2018-07-13] MEDS: PANTOPRAZOLE 40 MG TABLET (FP) PO SCH (10:28)
[2018-07-13] MEDS: MULTIVITAMINS (DAILY MVI) TABLET (FP) PO SCH (10:28)
[2018-07-13] MEDS: amLODIPine BESYLATE 5 MG TABLET (FP) PO SCH (10:28)
--- NOTE | 2018-07-13 10:37 | PN ---
Physical Exam: SUBJECTIVE: Patient seen and examined OBJECTIVE: Vital Signs Period Temp Pulse Resp BP Sys/Gee Pulse Ox Last 24 Hr 98.1 F-99.3 F 89-94 16-18 142-150/72-84 98 General NAD CV S1 S2 RRR no murmur/rub/gallop Lungs CTA B/L no wheezing/rales/rhonchi Abdomen soft NT/ND Extremities trace pitting edema on left leg . no tenderness at the knee Laboratory Results - last 24 hr CBC, BMP 07/11/18 07:25 07/11/18 07:25 Laboratory Results - last 24 hr 07/13/18 08:20 Phenytoin 7.4 L Active Medications Current Medications Amlodipine Besylate (Norvasc -) 5 mg PO DAILY [facility] Last Admin: 07/13/18 10:28 Dose: 5 mg Finasteride (Proscar -) 5 mg PO [facility] Last Admin: 07/12/18 21:15 Dose: 5 mg Furosemide (Lasix -) 40 mg PO DAILY [facility] Last Admin: 07/13/18 10:28 Dose: 40 mg Metoprolol Succinate (Toprol Xl -) 50 mg PO DAILY [facility] Last Admin: 07/13/18 10:29 Dose: 50 mg Multivitamins/Minerals/Vitamin C (Tab-A-Vit -) 1 tab PO DAILY [facility] Last Admin: 07/13/18 10:28 Dose: 1 tab Pantoprazole Sodium (Protonix -) 40 mg PO DAILY [facility] Last Admin: 07/13/18 10:28 Dose: 40 mg Phenytoin Sodium (Dilantin -) 500 mg PO [facility] Last Admin: 07/12/18 21:15 Dose: 500 mg Tamsulosin HCl (Flomax -) 0.4 mg PO [facility] Last Admin: 07/12/18 21:14 Dose: 0.4 mg Warfarin Sodium 10 mg/ (Warfarin Sodium 2 mg) 12 mg PO DAILY@1800 [facility] Last Admin: 07/12/18 18:30 Dose: 12 mg ASSESSMENT/PLAN: 67yo M wtih PMH DVT on coumadin s/p IVC filter, seiuzre and HTN came for TKR which was completed on 1. S/p TKR- will need ROBLES. pain control. ortho follow up as outpatient 2.therapeutic INR 3. anemia- s/p 2units PRBC this hospital stay. no indication for transfusion at this time 4. HTN- controlled. cont home medications 4. seizure- change dilantin to po , dilantin level is low but he is symptom free 6. DVT ppx- coumadin-lovenox bridge 7. medically optimized for discharge, awaiting insurance auth for ROBLES Active Medications ASSESSMENT/PLAN: Visit type - Emergency Visit Emergency Visit: Yes ED Registration Date: 06/25/18 Care time: The patient presented to the Emergency Department on the above date and was hospitalized for further evaluation of their emergent condition. - New Patient This patient is new to me today: No - Critical Care Critical Care patient: No - Discharge Referral Referred to [facility] Med P.C.: No
--- NOTE | 2018-07-13 10:48 | PN ---
Progress Note (short form) - Note Progress Note: OOB to chair. Comfortable on RA. Denies shortness of breath or chest pain. Intake & Output 07/10/18 07/11/18 07/12/18 07/13/18 23:59 23:59 23:59 23:59 Intake Total 470 536 3444 Output Total 1200 950 800 Balance 400 -500 190 -800 Weight 267 lb 8 oz 265 lb 264 lb 4 oz 268 lb 7 oz Last Vital Signs Temp Pulse Resp BP Pulse Ox 99.3 F 89 18 150/84 98 07/13/18 06:00 07/13/18 06:00 07/13/18 06:00 07/13/18 06:00 07/12/18 21:00 Active Medications Amlodipine Besylate (Norvasc -) 5 mg PO DAILY [facility] Last Admin: 07/13/18 10:28 Dose: 5 mg Finasteride (Proscar -) 5 mg PO [facility] Last Admin: 07/12/18 21:15 Dose: 5 mg Furosemide (Lasix -) 40 mg PO DAILY [facility] Last Admin: 07/13/18 10:28 Dose: 40 mg Metoprolol Succinate (Toprol Xl -) 50 mg PO DAILY [facility] Last Admin: 07/13/18 10:29 Dose: 50 mg Multivitamins/Minerals/Vitamin C (Tab-A-Vit -) 1 tab PO DAILY [facility] Last Admin: 07/13/18 10:28 Dose: 1 tab Pantoprazole Sodium (Protonix -) 40 mg PO DAILY [facility] Last Admin: 07/13/18 10:28 Dose: 40 mg Phenytoin Sodium (Dilantin -) 500 mg PO [facility] Last Admin: 07/12/18 21:15 Dose: 500 mg Tamsulosin HCl (Flomax -) 0.4 mg PO [facility] Last Admin: 07/12/18 21:14 Dose: 0.4 mg Warfarin Sodium 10 mg/ (Warfarin Sodium 2 mg) 12 mg PO DAILY@1800 [facility] Last Admin: 07/12/18 18:30 Dose: 12 mg Gen: NAD at rest Heart: RRR Lung: decreased breath sounds at the bases Abd: soft, nontender Ext: LLE edema, ecchymoses Laboratory Results - last 24 hr 07/13/18 08:20 Phenytoin 7.4 L IMP: s/p L TKR Acute LLE DVT s/p IVC filter Acute Blood Loss Anemia Sepsis Acute Kidney Injury HTN Hyperlipidemia remote h/o R DVT - AC with coumadin with INR checks - Normal transfusion thresholds - pain control - PT - D/C planning in progress Dr Bergman
[2018-07-13 11:57] LABS: INR 2.38 (0.83-1.09); PROTHROMBIN TIME (PATIENT) 28.3 SEC (9.7-13.0)
[2018-07-13] MEDS ORDERED: WARFARIN NA 10 MG TABLET (FP) ONE (17:20)
[2018-07-13] MEDS ORDERED: WARFARIN NA 2 MG TABLET (UD) ONE (17:20)
[2018-07-13] MEDS: WARFARIN NA 10 MG, WARFARIN NA 2 MG PO SCH (17:22)
[2018-07-13] MEDS: FINASTERIDE 5 MG TABLET (FP) PO SCH (21:43)
[2018-07-13] MEDS: TAMSULOSIN HCL 0.4 MG CAP PO SCH (21:43)
[2018-07-13] MEDS: PHENYTOIN NA EXTENDED 100 MG CAPSULE (FP) PO SCH (21:43)
[2018-07-14 07:38] LABS: INR 2.88 (0.83-1.09); PROTHROMBIN TIME (PATIENT) 34.3 SEC (9.7-13.0)
[2018-07-14] MEDS ORDERED: PT OWN MED DRAWER 7, Y5N ONE (09:46)
[2018-07-14] MEDS: MULTIVITAMINS (DAILY MVI) TABLET (FP) PO SCH (09:57)
[2018-07-14] MEDS: FUROSEMIDE 40 MG TABLET (FP) PO SCH (09:57)
[2018-07-14] MEDS: amLODIPine BESYLATE 5 MG TABLET (FP) PO SCH (09:58)
--- NOTE | 2018-07-14 10:02 | PN ---
Physical Exam: SUBJECTIVE: Patient seen and examined. He has no complaints. He says left knee pain is controlled. OBJECTIVE: Vital Signs Period Temp Pulse Resp BP Sys/Gee Pulse Ox Last 24 Hr 98 F-99.8 F 90-96 20-20 134-147/71-79 98 GENERAL: The patient is awake, alert, and fully oriented, in no acute distress. LUNGS: Breath sounds equal, clear to auscultation bilaterally, no wheezes, no crackles, no accessory muscle use. HEART: Regular rate and rhythm, S1, S2 without murmur, rub or gallop. ABDOMEN: Obese, soft, nontender, nondistended, normoactive bowel sounds, no guarding, no rebound, no hepatosplenomegaly, no masses. EXTREMITIES: 2+ pulses, warm, well-perfused, trace edema of left leg. Laboratory Results - last 24 hr 07/13/18 07/14/18 11:15 06:10 PT with INR 28.30 H 34.30 H INR 2.38 H 2.88 H Active Medications Generic Name Dose Route Start Last Admin Trade Name Latrellq PRN Reason Stop Dose Admin Amlodipine Besylate 5 mg 07/09/18 10:00 07/14/18 09:58 Norvasc - PO 5 mg DAILY FERNANDA Administration Finasteride 5 mg 07/02/18 22:00 07/13/18 21:43 Proscar - PO 5 mg HS FERNANDA Administration Furosemide 40 mg 07/09/18 10:00 07/14/18 09:57 Lasix - PO 40 mg DAILY FERNANDA Administration Metoprolol Succinate 50 mg 07/02/18 10:00 07/13/18 10:29 Toprol Xl - PO 50 mg DAILY FERNANDA Administration Multivitamins/Minerals/Vitamin C 1 tab 07/02/18 10:00 07/14/18 09:57 Tab-A-Vit - PO 1 tab DAILY FERNANDA Administration Pantoprazole Sodium 40 mg 07/02/18 10:00 07/13/18 10:28 Protonix - PO 40 mg DAILY FERNANDA Administration Phenytoin Sodium 500 mg 07/12/18 22:00 07/13/18 21:43 Dilantin - PO 500 mg HS FERNANDA Administration Tamsulosin HCl 0.4 mg 07/02/18 22:00 07/13/18 21:43 Flomax - PO 0.4 mg HS FERNANDA Administration Warfarin Sodium 10 mg/ 12 mg 07/10/18 18:00 07/13/18 17:22 Warfarin Sodium 2 mg PO 12 mg DAILY@1800 [facility] Administration ASSESSMENT/PLAN: This is a 67 year old man with a history of HTN, hyperlipidemia, DVT, seizure disorder, left knee OA who was admitted for left TKR. 1. Osteoarthritis of left knee - s/p left TKR - Continue PT - Awaiting authorization for short-term rehab 2. DVT of left popliteal vein - s/p IVC filter 06/30 - Continue Coumadin 3. Anemia secondary to post-operative blood loss - Transfused 2 units PRBCs this admission 4. Fever - Resolved 5. HTN - Continue Norvasc, Toprol XL, Lasix 6. Hyperlipidemia 7. Diarrhea - Resolved 8. Seizure disorder - Continue Dilantin Visit type - Emergency Visit Emergency Visit: No - New Patient This patient is new to me today: Yes Date on this admission: 07/14/18 - Critical Care Critical Care patient: No - Discharge Referral Referred to [facility] Med P.C.: No
[2018-07-14] MEDS: PANTOPRAZOLE 40 MG TABLET (FP) PO SCH (11:02)
--- NOTE | 2018-07-14 16:36 | PN ---
Progress Note (short form) - Note Progress Note: Progress Note: s: no chest pain, palps, dizziness, lightheadedness sob Current Medications Amlodipine Besylate (Norvasc -) 5 mg PO DAILY [facility] Last Admin: 07/14/18 09:58 Dose: 5 mg Finasteride (Proscar -) 5 mg PO [facility] Last Admin: 07/13/18 21:43 Dose: 5 mg Furosemide (Lasix -) 40 mg PO DAILY [facility] Last Admin: 07/14/18 09:57 Dose: 40 mg Metoprolol Succinate (Toprol Xl -) 50 mg PO DAILY [facility] Last Admin: 07/14/18 11:02 Dose: 50 mg Multivitamins/Minerals/Vitamin C (Tab-A-Vit -) 1 tab PO DAILY [facility] Last Admin: 07/14/18 09:57 Dose: 1 tab Pantoprazole Sodium (Protonix -) 40 mg PO DAILY [facility] Last Admin: 07/14/18 11:02 Dose: 40 mg Phenytoin Sodium (Dilantin -) 500 mg PO [facility] Last Admin: 07/13/18 21:43 Dose: 500 mg Tamsulosin HCl (Flomax -) 0.4 mg PO [facility] Last Admin: 07/13/18 21:43 Dose: 0.4 mg Warfarin Sodium (Coumadin -) 10 mg PO DAILY@1800 [facility] Vital Signs Period Temp Pulse Resp BP Sys/Gee Pulse Ox Last 24 Hr 97.5 F-99.8 F 90-97 18-20 114-147/68-82 97-98 Constitutional: Yes: Well Nourished, No Distress, Calm Cardiovascular: Yes: Regular Rate and Rhythm, S1, S2. No: Gallop, Murmur Respiratory: Yes: Regular, CTA Bilaterally. No: Accessory Muscle Use, Rales Extremities: No: Cold Edema: No Neurological: Yes: Alert Psychiatric: No: Agitated no jaundice diaphoresis Assessment/Plan 67M h/o HTN, HLD, h/o DVT p/w tachycardia after total knee replacement 1. Tachycardia: - no central PE on CTA - HRs likely sec to anemia, received PRBC - now resolved 2. Hypotension, CHAD: resolved. -improved after IVF, PRBC 3. H/o VTEs, on usp warfarin: - subtherapeutic lovenox dose given preop as bridging - L pop vein DVT here on sonogram - H/H stable--cont monitoring - s/p IVC filter 06/30 - AC management per heme: on coumadin, dosed per INR 4. Pleural effusion: - had been on IV lasix. CXR improved, asymptomatic - Continue PO Lasix 5. VTach: - Keep K>4 and Mg >2 - EF normal 6. HTN: -Stable on Amlodipine and Toprol. 7. S/p L TKR: - manage per ortho; on full AC as above.
[2018-07-14] MEDS ORDERED: WARFARIN NA 10 MG TABLET (FP) PO SCH (18:00)
[2018-07-14] MEDS: FINASTERIDE 5 MG TABLET (FP) PO SCH (21:56)
[2018-07-14] MEDS: TAMSULOSIN HCL 0.4 MG CAP PO SCH (22:00)
[2018-07-14] MEDS: PHENYTOIN NA EXTENDED 100 MG CAPSULE (FP) PO SCH (22:36)
[2018-07-15 08:16] LABS: HEMOGLOBIN 9.6 GM/dL (11.7-16.9); MCH 31.1 pg (25.7-33.7); MCHC 33.2 g/dl (32.0-35.9); MEAN CELL VOLUME 93.7 fl (80-96); MEAN PLT VOLUME 7.5 fl (7.5-11.1); PLATELET COUNT 353 K/MM3 (134-434); RBC 3.09 M/mm3 (4.00-5.60); RDW 17.5 % (11.9-15.9); WHITE BLOOD COUNT 5.3 K/mm3 (4.0-10.0)
[2018-07-15 08:22] LABS: INR 3.64 (0.83-1.09); PROTHROMBIN TIME (PATIENT) 43.5 SEC (9.7-13.0)
[2018-07-15 08:23] LABS: ANION GAP 5 MMOL/L (8-16); BLOOD UREA NITROGEN 18 mg/dL (7-18); CALCIUM 8.2 mg/dL (8.5-10.1); CHLORIDE 106 mmol/L (98-107); CO2 29 mmol/L (21-32); CREATININE 0.9 mg/dL (0.55-1.3); GLUCOSE,RANDOM 84 mg/dL (74-106); POTASSIUM 4.4 mmol/L (3.5-5.1); SODIUM 140 mmol/L (136-145)
[2018-07-15] MEDS: PANTOPRAZOLE 40 MG TABLET (FP) PO SCH (09:43)
[2018-07-15] MEDS: MULTIVITAMINS (DAILY MVI) TABLET (FP) PO SCH (09:43)
[2018-07-15] MEDS: FUROSEMIDE 40 MG TABLET (FP) PO SCH (09:43)
[2018-07-15] MEDS: amLODIPine BESYLATE 5 MG TABLET (FP) PO SCH (09:43)
--- NOTE | 2018-07-15 10:24 | PN ---
Physical Exam: SUBJECTIVE: Patient seen and examined at the bed side. sitting in chair, in no acute distress. waiting for rehab placement. OBJECTIVE: hold coumadin tonight for inr 3.6. ambulating with PT today and ambulated 110 feet. Vital Signs Period Temp Pulse Resp BP Sys/Gee Pulse Ox Last 24 Hr 97.5 F-98.9 F 85-97 19-20 114-140/68-80 97 GENERAL: The patient is awake, alert, and fully oriented, in no acute distress. HEAD: Normal with no signs of trauma. EYES: PERRL, extraocular movements intact, LUNGS: Breath sounds equal, clear to auscultation bilaterally, no wheezes, no crackles, no accessory muscle use. HEART: Regular rate and rhythm, S1, S2 without murmur, rub or gallop. ABDOMEN: Soft, nontender, nondistended, normoactive bowel sounds, no guarding EXTREMITIES: 2+ pulses, warm left knee swollen and tender, previous seen mild erythema below left knee site has resolved. PSYCH: Normal mood, normal affect. Laboratory Results - last 24 hr 07/15/18 07/15/18 07/15/18 06:30 06:30 06:30 WBC 5.3 RBC 3.09 L Hgb 9.6 L Hct 29.0 L MCV 93.7 MCH 31.1 MCHC 33.2 RDW 17.5 H Plt Count 353 MPV 7.5 PT with INR 43.50 H INR 3.64 H Sodium 140 Potassium 4.4 Chloride 106 Carbon Dioxide 29 Anion Gap 5 L BUN 18 Creatinine 0.9 Creat Clearance w eGFR 83.67 Random Glucose 84 Calcium 8.2 L Active Medications Generic Name Dose Route Start Last Admin Trade Name Freq PRN Reason Stop Dose Admin Amlodipine Besylate 5 mg 07/09/18 10:00 07/15/18 09:43 Norvasc - PO 5 mg DAILY FERNANDA Administration Finasteride 5 mg 07/02/18 22:00 07/14/18 21:56 Proscar - PO 5 mg HS FERNANDA Administration Furosemide 40 mg 07/09/18 10:00 07/15/18 09:43 Lasix - PO 40 mg DAILY FERNANDA Administration Metoprolol Succinate 50 mg 07/02/18 10:00 07/15/18 09:43 Toprol Xl - PO 50 mg DAILY FERNANDA Administration Multivitamins/Minerals/Vitamin C 1 tab 07/02/18 10:00 07/15/18 09:43 Tab-A-Vit - PO 1 tab DAILY FERNANDA Administration Pantoprazole Sodium 40 mg 07/02/18 10:00 07/15/18 09:43 Protonix - PO 40 mg DAILY FERNANDA Administration Phenytoin Sodium 500 mg 07/12/18 22:00 07/14/18 22:36 Dilantin - PO 500 mg HS FERNANDA Administration Tamsulosin HCl 0.4 mg 07/02/18 22:00 07/14/18 22:00 Flomax - PO 0.4 mg HS FERNANDA Administration Warfarin Sodium 10 mg 07/14/18 18:00 07/14/18 17:51 Coumadin - PO 10 mg DAILY@1800 FERNANDA Administration ASSESSMENT/PLAN: Patient is a 67 year-old male with a past medical history of hypertension, HLD, 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 s/p b/l knee replacement (L knee replacement on 06/25) transferred from [facility] for acute intra-articular hemorrhage after a mechanical fall one day after surgery. Surgery s/p left total knee replacement. continue pain medications (on oxycodone). continue bowel regimen. Participating in PT and ambulated 110 feet today. surgery following. Hematology Intra-articular hemorrhage of left knee s/p mechanical fall 1 day post op s/p knee replacement with Dr. Langston. Left popliteal vein confirmed with vascular doppler. s/p 2 units of prbc. hmg/hct low but stable. IVF filter placed on . s/p lovenox bridge to coumadin. now back on coumadin 10mg daily, hold today's dose of coumadin for inr 3.6. restart coumadin tomorrow. repeat inr in a.m. with goal inr between 2-3. Neuro: Seizure history. On Dilantin for history of seizures Card: Hypertension. controlled. continue metoprolol 50mg daily, amlodopine 10mg daily, lisinopril 40mg daily, HLD. on statin General Morbid obesity Nutritional consult as an outpatient ID intermittent fevers, resolved. completed antibiotics. Diarrhea. resolved. negative for c diff. fen tolerating po monitor electrolytes prophy coumadin 10mg daily. Visit type - Emergency Visit Emergency Visit: Yes ED Registration Date: 06/25/18 Care time: The patient presented to the Emergency Department on the above date and was hospitalized for further evaluation of their emergent condition. - New Patient This patient is new to me today: No - Critical Care Critical Care patient: No - Discharge Referral Referred to [facility] Med P.C.: No
--- NOTE | 2018-07-15 14:11 | PN ---
Progress Note (short form) - Note Progress Note: s: no chest pain, palps, dizziness, lightheadedness sob Current Medications Generic Name Dose Route Start Last Admin Trade Name Sabine PRN Reason Stop Dose Admin Amlodipine Besylate 5 mg 07/09/18 10:00 07/15/18 09:43 Norvasc - PO 5 mg DAILY FERNANDA Administration Finasteride 5 mg 07/02/18 22:00 07/14/18 21:56 Proscar - PO 5 mg HS FERNANDA Administration Furosemide 40 mg 07/09/18 10:00 07/15/18 09:43 Lasix - PO 40 mg DAILY FERNANDA Administration Metoprolol Succinate 50 mg 07/02/18 10:00 07/15/18 09:43 Toprol Xl - PO 50 mg DAILY FERNANDA Administration Multivitamins/Minerals/Vitamin C 1 tab 07/02/18 10:00 07/15/18 09:43 Tab-A-Vit - PO 1 tab DAILY FERNANDA Administration Pantoprazole Sodium 40 mg 07/02/18 10:00 07/15/18 09:43 Protonix - PO 40 mg DAILY FERNANDA Administration Phenytoin Sodium 500 mg 07/12/18 22:00 07/14/18 22:36 Dilantin - PO 500 mg HS FERNANDA Administration Tamsulosin HCl 0.4 mg 07/02/18 22:00 07/14/18 22:00 Flomax - PO 0.4 mg HS FERNANDA Administration Warfarin Sodium 10 mg 07/14/18 18:00 07/14/18 17:51 Coumadin - PO 10 mg DAILY@1800 FERNANDA Administration Vital Signs Period Temp Pulse Resp BP Sys/Gee Pulse Ox Last 24 Hr 97.5 F-98.9 F 85-97 19-20 114-140/68-80 97 Constitutional: Yes: Well Nourished, No Distress, Calm Cardiovascular: Yes: Regular Rate and Rhythm, S1, S2. No: Gallop, Murmur Respiratory: Yes: Regular, CTA Bilaterally. No: Accessory Muscle Use, Rales Extremities: No: Cold Edema: No Neurological: Yes: Alert Psychiatric: No: Agitated no jaundice diaphoresis CBC, BMP 07/15/18 06:30 07/15/18 06:30 Assessment/Plan 67M h/o HTN, HLD, h/o DVT p/w tachycardia after total knee replacement 1. Tachycardia: - no central PE on CTA - HRs likely sec to anemia- stable now after PRBC 2. Hypotension, CHAD: resolved. -improved after IVF, PRBC 3. H/o VTEs, on intermediate warfarin: - subtherapeutic lovenox dose given preop as bridging - L pop vein DVT here on sonogram - H/H stable--cont monitoring - s/p IVC filter 06/30 - on coumadin per inr 4. Pleural effusion: - had been on IV lasix. CXR improved, asymptomatic. Continue PO Lasix 5. VTach: - Keep K>4 and Mg >2 - EF normal 6. HTN: -Stable on Amlodipine and Toprol. 7. S/p L TKR: - manage per ortho; on full AC as above.
[2018-07-15] MEDS: FINASTERIDE 5 MG TABLET (FP) PO SCH (21:20)
[2018-07-15] MEDS: TAMSULOSIN HCL 0.4 MG CAP PO SCH (21:20)
[2018-07-15] MEDS: PHENYTOIN NA EXTENDED 100 MG CAPSULE (FP) PO SCH (21:20)
--- NOTE | 2018-07-15 22:29 | DS ---
Physical Exam: SUBJECTIVE: Patient seen and examined OBJECTIVE: DISCHARGE HOME ON 07/16/18, INR CHECK PRIOR TO D/C hold coumadin tonight for inr 3.6. ambulating with PT today and ambulated 110 feet. Vital Signs Period Temp Pulse Resp BP Sys/Gee Pulse Ox Last 24 Hr 98.3 F-98.9 F 85-91 20-20 139-140/80-80 97 PHYSICAL EXAM GENERAL: The patient is awake, alert, and fully oriented, in no acute distress. HEAD: Normal with no signs of trauma. EYES: PERRL, extraocular movements intact, LUNGS: Breath sounds equal, clear to auscultation bilaterally, no wheezes, no crackles, no accessory muscle use. HEART: Regular rate and rhythm, S1, S2 without murmur, rub or gallop. ABDOMEN: Soft, nontender, nondistended, normoactive bowel sounds, no guarding EXTREMITIES: 2+ pulses, warm left knee swollen and tender, previous seen mild erythema below left knee site has resolved. PSYCH: Normal mood, normal affect. LABS Laboratory Results - last 24 hr 07/15/18 07/15/18 07/15/18 06:30 06:30 06:30 WBC 5.3 RBC 3.09 L Hgb 9.6 L Hct 29.0 L MCV 93.7 MCH 31.1 MCHC 33.2 RDW 17.5 H Plt Count 353 MPV 7.5 PT with INR 43.50 H INR 3.64 H Sodium 140 Potassium 4.4 Chloride 106 Carbon Dioxide 29 Anion Gap 5 L BUN 18 Creatinine 0.9 Creat Clearance w eGFR 83.67 Random Glucose 84 Calcium 8.2 L HOSPITAL COURSE: Date of Admission:06/25/18 Date of Discharge: 07/16/18 ASSESSMENT/PLAN: Patient is a 67 year-old male with a past medical history of hypertension, HLD, 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 s/p b/l knee replacement (L knee replacement on 06/25) transferred from [facility] for acute intra-articular hemorrhage after a mechanical fall one day after surgery. HOSPITAL COURSE BY PROBLEM LIST Surgery s/p left total knee replacement. continue pain medications (on oxycodone). continue bowel regimen. Participating in PT and ambulated 110 feet today. surgery following. Hematology Intra-articular hemorrhage of left knee s/p mechanical fall 1 day post op s/p knee replacement with Dr. Langston. Left popliteal vein confirmed with vascular doppler. s/p 2 units of prbc. hmg/hct low but stable. IVF filter placed on . s/p lovenox bridge to coumadin. now back on coumadin 10mg daily, hold today's dose of coumadin for inr 3.6. restart coumadin tomorrow. repeat inr in a.m. with goal inr between 2-3. Neuro: Seizure history. On Dilantin for history of seizures Card: Hypertension. controlled. continue metoprolol 50mg daily, amlodopine 10mg daily, lisinopril 40mg daily, HLD. on statin General Morbid obesity Nutritional consult as an outpatient ID intermittent fevers, resolved. completed antibiotics. Diarrhea. resolved. negative for c diff. DISCHARGE HOME 07/16/18 Minutes to complete discharge: 60 Discharge Summary Reason For Visit: POST TRAUMATIC OSTEOARTHRITIS LEFT KNEE Current Active Problems Anemia (Acute) BPH (benign prostatic hyperplasia) (Acute) DVT (deep venous thrombosis) (Acute) HTN (hypertension) (Acute) Hypercholesteremia (Acute) Loose bowel movement (Acute) Morbid obesity with BMI of 40.0-44.9, adult (Acute) Osteoarthritis of left knee (Acute) Seizures (Acute) Condition: Improved - Instructions Diet, Activity, Other Instructions: Dr. Langston Discharge Instructions for Knee Replacement Post Operative Instructions Physical activity Physical Therapist will come to your home for the first 5 days. You will be set up with outpatient PT at your first post-operative visit. Use assistive devices for ambulation at all times. Weight bearing as tolerated on your surgical side. Do not put pillow under knee. May put pillow under heel. Wound care Leave your surgical dressing in place. Do not change the dressing until seen by your surgeon in the office. No baths or showers. Do not submerge your incision. Do not apply any ointments or lotions to your incision. Please call the office if your dressing is soiled/dirty or is falling off. Apply Graduated Compression Stockings (TEDS) to both lower extremities - remove daily for hygiene ONLY. Diet There are no dietary restrictions. Eat healthy, high-fiber foods. Drink 6 to 8 glasses of liquid each day. This will assist in keeping your bowels are regular. Pain management Any pain prescription medication ordered should be taken as prescribed for moderate to severe pain. Do not take additional Tylenol while taking Percocet. DVT PPX: lovenox with coumadin bridge ISTOP: Reference #: [id number] Call Dr. Langston for any of the following: Severe pain not relieved by medication Fever of 101 or higher Excessive bleeding or drainage on dressing Inability to urinate If you experience chest pain or shortness of breath, please seek emergency care immediately. Please call the office at to confirm your post-op appointment for the week following surgery. Disposition: HOME - Home Medications Comprehensive Discharge Medication List: Ambulatory Orders Finasteride [Proscar -] 5 mg PO HS 06/12/18 Metoprolol Succinate [Toprol Xl] 50 mg PO DAILY 06/12/18 Tamsulosin HCl [Flomax -] 0.4 mg PO HS 06/12/18 Amlodipine Besylate [Norvasc -] 5 mg PO DAILY #60 tablet 07/15/18 Furosemide [Lasix -] 40 mg PO DAILY #60 tablet 07/15/18 Multivitamins [Multivit ([facility] Formulary)] 1 tab PO DAILY tab 07/15/18 Phenytoin Na Extended [Dilantin -] 500 mg PO HS #0 capsule 07/15/18 Phenytoin Sodium Extended 500 mg PO HS #90 capsule 07/15/18 Warfarin Na [Coumadin -] 10 mg PO DAILY@1800 #30 tablet 07/15/18 This patient is new to me today: No Emergency Visit: Yes ED Registration Date: 06/25/18 Care time: The patient presented to the Emergency Department on the above date and was hospitalized for further evaluation of their emergent condition. Critical Care patient: No - Discharge Referral Referred to [facility] No
[2018-07-16 08:11] LABS: INR 3.63 (0.83-1.09); PROTHROMBIN TIME (PATIENT) 43.4 SEC (9.7-13.0)
[2018-07-16] MEDS: amLODIPine BESYLATE 5 MG TABLET (FP) PO SCH (10:32)
[2018-07-16] MEDS: FUROSEMIDE 40 MG TABLET (FP) PO SCH (10:32)
[2018-07-16] MEDS: MULTIVITAMINS (DAILY MVI) TABLET (FP) PO SCH (10:32)
[2018-07-16] MEDS: PANTOPRAZOLE 40 MG TABLET (FP) PO SCH (10:32)
[2018-07-16 11:26] VITALS: BP 141/87; PULSE 107; TEMP 98.6
== END 2018-07-16 11:28 | DRG 302 ==
LOC: FM/S 10:21 → EDSTATUS 12:00 → FM/S 17:14 → JICU 06-27 17:43 → J8W 07-01 21:22
PROVIDERS: ADMIT Orthopaedic Surgery Orthopaedic Surgery of the Spine; ATTEND Nurse Practitioner Family
PROC: 0SRD0J9 Replacement of Left Knee Joint with Synthetic Substitute, Cemented, Open Approach (ICD-10-PCS; principal; 2018-06-25 12:00)
PROC: 30233N1 Transfusion of Nonautologous Red Blood Cells into Peripheral Vein, Percutaneous Approach (ICD-10-PCS; 2018-06-27)
PROC: 06H033Z Insertion of Infusion Device into Inferior Vena Cava, Percutaneous Approach (ICD-10-PCS; 2018-06-30)
PROC: B519ZZA Fluoroscopy of Inferior Vena Cava, Guidance (ICD-10-PCS; 2018-06-30)
DX: M17.12 Unilateral primary osteoarthritis, left knee (principal); I47.2 Ventricular tachycardia; N17.9 Acute kidney failure, unspecified; J90 Pleural effusion, not elsewhere classified; I82.432 Acute embolism and thrombosis of left popliteal vein; I95.9 Hypotension, unspecified; D68.8 Other specified coagulation defects; E66.01 Morbid (severe) obesity due to excess calories; D62 Acute posthemorrhagic anemia; Z68.41 Body mass index [BMI] 40.0-44.9, adult; M96.830 Postprocedural hemorrhage of a musculoskeletal structure following a musculoskeletal system procedure; M25.061 Hemarthrosis, right knee; Y83.8 Other surgical procedures as the cause of abnormal reaction of the patient, or of later complication, without mention of misadventure at the time of the procedure; Y79.8 Miscellaneous orthopedic devices associated with adverse incidents, not elsewhere classified; I10 Essential (primary) hypertension; E78.5 Hyperlipidemia, unspecified; Z86.718 Personal history of other venous thrombosis and embolism; G40.909 Epilepsy, unspecified, not intractable, without status epilepticus; N40.0 Benign prostatic hyperplasia without lower urinary tract symptoms; K59.00 Constipation, unspecified; S70.12XA Contusion of left thigh, initial encounter; W01.0XXA Fall on same level from slipping, tripping and stumbling without subsequent striking against object, initial encounter; Y93.01 Activity, walking, marching and hiking; Y92.231 Patient bathroom in hospital as the place of occurrence of the external cause; Y99.8 Other external cause status; R19.5 Other fecal abnormalities
CPT/HCPCS: 36415; 36430; 36511; 36600; 70450-TC; 71045-TC-FY; 71275-TC; 73502-TC-LT-FY; 73560-TC-LT-FY; 73562-TC-LT-FY; 76000-TC-FY; 76700-TC; 76882-TC-RT-FY; 80048; 80053; 80185; 81003; 81240; 81241; 81291; 82803; 82962; 83090; 83735; 84100; 85025; 85027; 85379; 85610; 85613; 85730; 85732; 86146; 86850; 86900; 86901; 86922; 87040; 87045; 87046; 87086; 87205; 87324; 87449; 88304-TC; 88311-TC; 93005; 93010; 93306-TC; 93971-TC; 94760; 97116-GP; 97163-GP; J0131; J1644; J7030; P9038; P9058

== ENCOUNTER 2019-11-17 21:13 | Inpatient (IN) | payer OTHER ==
--- NOTE | 2019-11-17 21:22 | PDOC ---
Rapid Medical Evaluation Time Seen by Provider: 11/17/19 21:18 Medical Evaluation: Allergies Allergy/AdvReac Type Severity Reaction Status Date / Time No Known Allergies Allergy Verified 11/11/19 16:05 11/17/19 21:20 CC: worsening pain and swelling with drainage x weeks, pending revision of TKR tomorrow but may be cancelled due to insurance reasons, no fever, Exam: noted brown discharge from rt knee incision, extremity swollen Plan: xray, labs, u/s, iv Discharge Disposition - Diagnosis Post-operative complication - Referrals - Patient Instructions - Post Discharge Activity
[2019-11-17 22:04] LABS: BASO % 1.3 % (0-2.0); EOS % 2.7 % (0-4.5); HEMATOCRIT 33.6 % (35.4-49); HEMOGLOBIN 11.1 GM/dL (11.7-16.9); LYMPH % 39.9 % (8-40); MCH 29.9 pg (25.7-33.7); MEAN CELL VOLUME 90.6 fl (80-96); MEAN PLT VOLUME 7.6 fl (7.5-11.1); NEUT % 42.1 % (42.8-82.8); PLATELET COUNT 204 K/MM3 (134-434); RBC 3.71 M/mm3 (4.00-5.60); RDW 15.2 % (11.9-15.9); WHITE BLOOD COUNT 3.6 K/mm3 (4.0-10.0)
[2019-11-17 22:43] LABS: ALBUMIN 2.6 g/dl (3.4-5.0); BILIRUBIN,TOTAL 0.3 mg/dL (0.2-1); BLOOD UREA NITROGEN 19.2 mg/dL (7-18); CALCIUM 7.9 mg/dL (8.5-10.1); CREATININE 0.9 mg/dL (0.55-1.3); POTASSIUM 4.3 mmol/L (3.5-5.1); TOT PROT 7.4 g/dl (6.4-8.2)
--- NOTE | 2019-11-17 23:06 | PDOC ---
History of Present Illness - General Chief Complaint: Pain Stated Complaint: KNEE PAIN Time Seen by Provider: 11/17/19 21:18 History Source: Patient, Spouse ( at bedside) Exam Limitations: No Limitations - History of Present Illness Initial Comments: 68 y/o male presenting for worsening pain and drainage from left knee for the past several days. Pt is one year s/p TKR by Dr. Langston with chronic drainage from the area. Previously taking Coumadin but transitioned to Lovenox three or four days ago. Denies fevers, chills, chest pain, or SOB. Pt was previously scheduled for a revision of his TKR tomorrow. Past History - Medical History Allergies/Adverse Reactions: Allergies Allergy/AdvReac Type Severity Reaction Status Date / Time No Known Allergies Allergy Verified 11/11/19 16:05 Home Medications: Ambulatory Orders Multivitamins [Multivit ([facility] Formulary)] 1 tab PO DAILY tab 07/15/18 Phenytoin Sodium Extended 500 mg PO HS #90 capsule 07/15/18 Warfarin Na [Coumadin -] 3 mg PO HS 07/24/18 Pantoprazole Sodium [Protonix -] 40 mg PO DAILY tablet.ec 08/11/18 Amlodipine-Olmesartan 10-40 mg 1 tab PO DAILY 11/11/19 Enoxaparin [Lovenox -] 60 mg SQ Q12H 11/11/19 Finasteride [Proscar] 5 mg PO DAILY 11/11/19 Fluticasone/Vilanterol [Breo Ellipta 100-25 Mcg INH] 1 each IH DAILY 11/11/19 Hydrochlorothiazide [Hctz -] 12.5 mg PO DAILY 11/11/19 Metoprolol Succinate 50 mg PO DAILY 11/11/19 Tamsulosin HCl [Flomax] 0.4 mg PO DAILY 11/11/19 Anemia: No Asthma: No Cancer: No Cardiac Disorders: No CVA: No COPD: No CHF: No DVT: Yes Dementia: No Diabetes: No GI Disorders: Yes (GERD) Disorders: Yes (BPH) HTN: Yes Hypercholesterolemia: No Liver Disease: No Seizures: Yes (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 TENDON REPAIR RIGHT HAND MANY YEARS AGO) - Psycho-Social/Smoking History Smoking History: Never smoked Have you smoked in the past 12 months: No - Substance Abuse Hx (Audit-C & DAST Scrn) How often the patient has a drink containing alcohol: Never Score: In Men: 4 or > Positive; In Women: 3 or > Positive: 0 Screen Result (Pos requires Nsg. Audit-10AR): Negative Review of Systems - Review of Systems Able to Perform ROS?: Yes Comments:: 10 point review of systems completed. All systems negative except as noted above. *Physical Exam - Vital Signs Last Vital Signs Temp Pulse Resp BP Pulse Ox 97.9 F 91 H 20 141/76 96 11/17/19 21:18 11/17/19 21:18 11/17/19 21:18 11/17/19 21:18 11/17/19 21:18 - Physical Exam General Appearance: Yes: Appropriately Dressed. No: Apparent Distress HEENT: positive: Normal Voice Neck: positive: Trachea midline, Supple Respiratory/Chest: positive: Other (Speaking in multiword responses without pausing.). negative: Respiratory Distress Cardiovascular: positive: Regular Rate Extremity: positive: Erythema (Erythema, warmth, two areas of skin breakdown to anterior portion of knee with trace purulent drainage.) Integumentary: positive: Dry, Warm Neurologic: positive: Fully Oriented, Alert, Normal Mood/Affect ED Treatment Course - LABORATORY CBC & Chemistry Diagram: 11/17/19 21:50 11/17/19 21:50 - ADDITIONAL ORDERS Additional order review: Laboratory Results 11/17/19 11/17/19 21:50 21:50 Sodium 139 Potassium 4.3 Chloride 106 Carbon Dioxide 29 Anion Gap 4 L BUN 19.2 H Creatinine 0.9 Est GFR (CKD-EPI)AfAm 99.94 Est GFR (CKD-EPI)NonAf 86.23 Random Glucose 83 Lactic Acid 0.9 Calcium 7.9 L Total Bilirubin 0.3 AST 28 ALT 24 Alkaline Phosphatase 178 H Total Protein 7.4 Albumin 2.6 L 11/17/19 21:50 RBC 3.71 L MCV 90.6 MCHC 33.0 RDW 15.2 MPV 7.6 Neutrophils % 42.1 L D Lymphocytes % 39.9 D Monocytes % 14.0 H Eosinophils % 2.7 Basophils % 1.3 Medical Decision Making - Medical Decision Making 68 y/o male presenting with suspected intra-articular infection and overlying of R knee s/p TKR. Duplex U/S concerning for new DVT. ED Attending discussed the case with Dr. Langston. Requested pt be admitted to [facility]. Will perform operative management tomorrow. Requested no AC. 18 Nov 2019 00:18 AM Telephone discussion with SAMANTHA Orellana. Verbally appraised of the pts HPI, ED course, and current plan of management. Will admit pt to med/surg for attending Dr. Wills. Case discussed with ED Attending Dr. Reid. Naga Reilly M.D., PGY3 Emergency Medicine Residency Discharge - Discharge Information Problems reviewed: Yes Clinical Impression/Diagnosis: Post-operative complication, Left leg DVT Condition: Stable - Admission Yes - Follow up/Referral - Patient Discharge Instructions - Post Discharge Activity
--- NOTE | 2019-11-17 23:07 | PDOC ---
Documentation entered by Lili Barajas SCRIBE, acting as scribe for Julia Reid MD. Julia Reid MD: This documentation has been prepared by the Sugar roach Sydney, SCRIBE, under my direction and personally reviewed by me in its entirety. I confirm that the documentation accurately reflects all work, treatment, procedures, and medical decision making performed by me. Attending Attestation - Resident Resident Name: Naga Reilly - ED Attending Attestation I have performed the following: I have examined & evaluated the patient, The case was reviewed & discussed with the resident, I agree w/resident's findings & plan, Exceptions are as noted - HPI HPI: \11/17/19 22:59 Patient is a 68 year old male with a significant past medical history of L TKR (last year), IVC filter, BPH, DVT (on Coumadin), hypercholesterolemia, HTN, OA who presents to the ED with several weeks of progressively worsening left knee pain and swelling with drainage. As per patient, he is scheduled for total knee replacement revision by Dr. Langston tomorrow, but was advised by Dr. Langston to present to the ED secondary to his present symptoms. Denies fever, shills, chest pain, nausea, vomiting or diarrhea. Allergies: NKDA PCP: Dr. Quarles - Physicial Exam PE: 11/17/19 23:09 68 yo male presents for revision of left total knee replacement head ncat neck supple lungs no rales cvs [id number] abdomen nontender skin warm and dry extremities edematous left knee w purulence,warm to touch neuro axox3 - Medical Decision Making 11/17/19 23:03 I spoke with the pt's orthopedist, Dr Langston and informed him that the pt has a left popliteal DVT However this pt will be going to surgery in the morning and Dr Langston requested the hospitalist admit this pt and he will be the creative consultant 1) stop anticoagulation 2) NPO after midnight with IVF D5 1/2 NS @ 125 cc/hr 11/17/19 23:13 plan IV antibiotics,NPO,start IVF and med/surg admission Discharge - Discharge Information Problems reviewed: Yes Clinical Impression/Diagnosis: Post-operative complication, Left leg DVT Condition: Stable - Admission Yes - Follow up/Referral Referrals: Jonathan Langston MD [Primary Care Provider] - - Patient Discharge Instructions - Post Discharge Activity
[2019-11-17] MEDS ORDERED: VANCOMYCIN HCL 2,000 MG in DEXTROSE 5%-WATER - 500 ML IVPB ONE (23:12)
[2019-11-17] MEDS ORDERED: RIFAMPIN 300 MG CAPSULE PO ONE (23:14)
[2019-11-17] MEDS ORDERED: KETOROLAC TROMETHAMINE 15 MG/ML VIAL IVPUSH ONE (23:30)
[2019-11-17] MEDS: DEXTROSE 5%-0.45% SALINE 1,000 ML IV SCH (23:44)
[2019-11-18 00:25] LABS: INR 1.19 (0.83-1.09); PROTHROMBIN TIME (PATIENT) 14.1 SEC (9.7-13.0)
[2019-11-18 00:28] LABS: ACTIVATED PTT 29.5 SECONDS (25.2-36.5)
[2019-11-18] MEDS ORDERED: KETOROLAC TROMETHAMINE 15 MG/ML VIAL ONE (00:34)
--- NOTE | 2019-11-18 00:47 | HP ---
CHIEF COMPLAINT: Left Knee Infection, Left Knee Pain and Swelling PCP: Willam HISTORY OF PRESENT ILLNESS: This is a 68 y/o male with a significant past medical history of L -TKR (last year), DVT (on Coumadin), IVC Filter, HTN, Hypercholesterolemia, GERD, Seizure Disorder, BPH, OA. Who presents to the ED with several weeks of progressively worsening left knee pain and swelling with drainage. The patient reports that his left leg is now twice the size of his right leg. He reports that his Coumadin was stopped 5 days ago and his last injection of Lovenox was 11/16, for the scheduled surgery. Per the patient, he is scheduled for total knee replacement revision by Dr. Langston today, but was advised by Dr. Langston to present to the ED secondary to his present symptoms. Patient denies numbness, parasthesias. Patient denies fever, chills, cough, SOB, dizziness, LUU, CP, palpitations, AP, N/V/D, constipation, melena, hematochezia, hematuria, dysuria. Patient deniesn sick contacts or recent travel ER course was notable for: (1) Duplex of LE- Left popliteal vein thrombosis is noted, several nonspecific mildly enlarged left inguinal lymph nodes are seen (2) Left Knee Wound Culture sent to lab (3) Recent Travel: None PAST MEDICAL HISTORY: see HPI PAST SURGICAL HISTORY: L Knee Replacement (2019) R Knee Replacement R Tendon Repair IVC Filter Social History: Smoking: Denies Alcohol: Denies Drugs: Denies Lives with , retired- [employer] Allergies No Known Allergies Allergy (Verified 11/11/19 16:05) HOME MEDICATIONS: Home Medications Medication Instructions Recorded Multivitamins [Multivit ([facility] 1 tab PO DAILY tab 07/15/18 Formulary)] Phenytoin Sodium Extended 500 mg PO HS #90 capsule 07/15/18 Warfarin Na [Coumadin -] 3 mg PO HS 07/24/18 Pantoprazole Sodium [Protonix -] 40 mg PO DAILY tablet.ec 08/11/18 Amlodipine-Olmesartan 10-40 mg 1 tab PO DAILY 11/11/19 Enoxaparin [Lovenox -] 60 mg SQ Q12H 11/11/19 Finasteride [Proscar] 5 mg PO DAILY 11/11/19 Fluticasone/Vilanterol [Breo 1 each IH DAILY 11/11/19 Ellipta 100-25 Mcg INH] Hydrochlorothiazide [Hctz -] 12.5 mg PO DAILY 11/11/19 Metoprolol Succinate 50 mg PO DAILY 11/11/19 Tamsulosin HCl [Flomax] 0.4 mg PO DAILY 11/11/19 REVIEW OF SYSTEMS CONSTITUTIONAL: Absent: fever, chills, diaphoresis, generalized weakness, malaise, loss of appetite, weight change HEENT: Absent: rhinorrhea, nasal congestion, throat pain, throat swelling, difficulty swallowing, mouth swelling, ear pain, eye pain, visual changes CARDIOVASCULAR: peripheral edema Absent: chest pain, syncope, palpitations, irregular heart rate, lightheadedness RESPIRATORY: Absent: cough, shortness of breath, dyspnea with exertion, orthopnea, wheezing, stridor, hemoptysis GASTROINTESTINAL: Absent: abdominal pain, abdominal distension, nausea, vomiting, diarrhea, constipation, melena, hematochezia GENITOURINARY: Absent: dysuria, frequency, urgency, hesitancy, hematuria, flank pain, genital pain MUSCULOSKELETAL: arthralgia, joint swelling Absent: myalgia, back pain, neck pain SKIN: left knee wound with pus Absent: rash, itching, pallor HEMATOLOGIC/IMMUNOLOGIC: Absent: easy bleeding, easy bruising, lymphadenopathy, frequent infections ENDOCRINE: Absent: unexplained weight gain, unexplained weight loss, heat intolerance, cold intolerance NEUROLOGIC: Absent: headache, focal weakness or paresthesias, dizziness, unsteady gait, seizure, mental status changes, bladder or bowel incontinence PSYCHIATRIC: Absent: anxiety, depression, suicidal or homicidal ideation, hallucinations. PHYSICAL EXAMINATION Vital Signs - 24 hr 11/17/19 21:18 Temperature 97.9 F Pulse Rate 91 H Respiratory 20 Rate Blood Pressure 141/76 O2 Sat by Pulse 96 Oximetry (%) GENERAL: Awake, alert, and fully oriented, in mild distress. HEAD: Normal with no signs of trauma. EYES: Pupils equal, round and reactive to light, extraocular movements intact, sclera anicteric, conjunctiva clear. No lid lag. EARS, NOSE, THROAT: Ears normal, nares patent, oropharynx clear without exudates. Moist mucous membranes. NECK: Normal range of motion, supple without lymphadenopathy, JVD, or masses. LUNGS: Breath sounds equal, clear to auscultation bilaterally. No wheezes, and no crackles. No accessory muscle use. HEART: Regular rate and rhythm, normal S1 and S2 without murmur, rub or gallop. ABDOMEN: Obese, soft, nontender, not distended, normoactive bowel sounds, no guarding, no rebound, no masses. No hepatomegaly or splenomegaly. MUSCULOSKELETAL: LROM of LLE. Tenderness to left knee. Normal range of motion at RUE, RLE, LUE joints. No bony deformities. No CVA tenderness. UPPER EXTREMITIES: 2+ pulses, warm, well-perfused. No cyanosis. No clubbing. No peripheral edema. LOWER EXTREMITIES: +3 pitting to LLE, +1 to RLE peripheral edema. 2+ pulses, warm, well-perfused. No calf tenderness. NEUROLOGICAL: Cranial nerves II-XII intact. Normal speech. Gait not observed. PSYCHIATRIC: Cooperative. Good eye contact. Appropriate mood and affect. SKIN: +erythema, warm to left posterior/anteriolateral knee, +purulent drainage left knee. dry, normal turgor, no rashes noted, normal capillary refill. Laboratory Results - last 24 hr 11/17/19 11/17/19 11/17/19 21:50 21:50 21:50 WBC 3.6 L RBC 3.71 L Hgb 11.1 L Hct 33.6 L MCV 90.6 MCH 29.9 MCHC 33.0 RDW 15.2 Plt Count 204 D MPV 7.6 Absolute Neuts (auto) 1.5 Neutrophils % 42.1 L D Lymphocytes % 39.9 D Monocytes % 14.0 H Eosinophils % 2.7 Basophils % 1.3 Nucleated RBC % 0 PT with INR INR PTT (Actin FS) Sodium 139 Potassium 4.3 Chloride 106 Carbon Dioxide 29 Anion Gap 4 L BUN 19.2 H Creatinine 0.9 Est GFR (CKD-EPI)AfAm 99.94 Est GFR (CKD-EPI)NonAf 86.23 Random Glucose 83 Lactic Acid 0.9 Calcium 7.9 L Total Bilirubin 0.3 AST 28 ALT 24 Alkaline Phosphatase 178 H Total Protein 7.4 Albumin 2.6 L 11/17/19 23:20 WBC RBC Hgb Hct MCV MCH MCHC RDW Plt Count MPV Absolute Neuts (auto) Neutrophils % Lymphocytes % Monocytes % Eosinophils % Basophils % Nucleated RBC % PT with INR 14.10 H INR 1.19 H PTT (Actin FS) 29.5 Sodium Potassium Chloride Carbon Dioxide Anion Gap BUN Creatinine Est GFR (CKD-EPI)AfAm Est GFR (CKD-EPI)NonAf Random Glucose Lactic Acid Calcium Total Bilirubin AST ALT Alkaline Phosphatase Total Protein Albumin ASSESSMENT/PLAN: This is a 68 y/o male with significant PMHx of L- TKR (2019), DVT (on Coumadin), s/p IVC Filter, HTN, HLD, Seizure Disorder, GERD, BPH, OA. Admitted to M/S for Left Knee Post-Op Infection, Left Popliteal DVT for further evaluation of their emergent condition. Plan: See Problem List FEN D51/2NS@125ml/hr Replete lytes prn NPO DVT ppx OOB BARB- R- Leg Hold AC per Dr. Langston- OR today (per ED Resident- Dr vinh Reilly) Dispo: Requires Inpatient Care Family Medical History Family History: As Documented Family Hx Cancer: Mother (Unknown Type- age 60's) Other Family History: Father- MVA. Sister's- alive and healthy. Sons x3- alive and healthy Problem List - Problem (1) Left leg DVT Assessment/Plan: Wells Score 3 Hx DVT, stopped Coumadin 5 days ago for elective surgery bridged with Lovenox Duplex LE report- Left popliteal vein thrombosis is noted, several nonspecific mildly enlarged left inguinal lymph nodes are seen AC not restarted per Dr Langston- OR today Neurovascular checks Elevate Extremity Resume AC, per Ortho Monitor CBC Monitor vitals Pain Management- Ofirmev, Morphine Sulfate Code(s): I82.402 - ACUTE EMBOLISM AND THOMBOS UNSP DEEP VEINS OF L LOW EXTREM (2) Post-operative complication Assessment/Plan: Will treat for Prosthetic Joint Infection Left Knee Wound culture-pending Blood Cultures-pending No Leukocytosis, no neutrophilia Vancomycin, Rifampin given in ED Continue Vancomycin with Ceftriaxone for Staphylococcus coverage Monitor Vancomycin Trough Appreciate ID Consult Monitor CBC, CMP Monitor vitals Elevate extremity Wound Care Code(s): T81.9XXA - UNSPECIFIED COMPLICATION OF PROCEDURE, INITIAL ENCOUNTER (3) Anemia Assessment/Plan: stable Hgb 11.1, at baseline Will transfuse if Hgb < 7.0 Monitor CBC Code(s): D64.9 - ANEMIA, UNSPECIFIED (4) BPH (benign prostatic hyperplasia) Assessment/Plan: stable Will hold current med for now secondary to surgery tomorrow Resume Flomax post surgery Monitor renal function Code(s): N40.0 - BENIGN PROSTATIC HYPERPLASIA WITHOUT LOWER URINRY TRACT SYMP (5) HTN (hypertension) Assessment/Plan: stable Hold current meds secondary to OR today Resume current meds post surgery with parameters Monitor BP Monitor renal function Code(s): I10 - ESSENTIAL (PRIMARY) HYPERTENSION (6) Hypercholesteremia Assessment/Plan: stable Resume current med post surgery Monitor LFTs Code(s): E78.00 - PURE HYPERCHOLESTEROLEMIA, UNSPECIFIED (7) Obesity (BMI 30-39.9) Assessment/Plan: Counseled on weight reduction, lifestyle modifications Code(s): E66.9 - OBESITY, UNSPECIFIED (8) Osteoarthritis of left knee Assessment/Plan: s/p L- TKR Ambulates with walker Ofirmev prn Code(s): M17.12 - UNILATERAL PRIMARY OSTEOARTHRITIS, LEFT KNEE (9) Seizures Assessment/Plan: stable Continue Dilantin IV until PO resumed Dilantin level in am Seizure Precautions Monitor vitals Code(s): R56.9 - UNSPECIFIED CONVULSIONS (10) Encounter for screening laboratory testing for COVID-19 virus Assessment/Plan: Low Risk COVID PCR-pending Isolation Precautions Code(s): Z11.59 - ENCOUNTER FOR SCREENING FOR OTHER VIRAL DISEASES Visit type - Medication Review Med list reviewed for High Risk Meds patients 65 and older: No (patient unable to verify home meds- spouse will bring list today) - Emergency Visit Emergency Visit: Yes ED Registration Date: 11/17/19 Care time: The patient presented to the Emergency Department on the above date and was hospitalized for further evaluation of their emergent condition. - New Patient This patient is new to me today: Yes Date on this admission: 11/18/19 - Critical Care Critical Care patient: No
[2019-11-18] MEDS: DEXTROSE 5%-0.45% SALINE 1,000 ML IV SCH (02:46)
--- NOTE | 2019-11-18 06:28 | PN ---
Progress Note (short form) - Note Progress Note: 68M admitted with worsening pain and inability to ambulate due to periprosthetic left total knee replacement. -NPO, IVF. -Will put on add-on OR schedule at [facility] today. -Hold all antibiotics - specimens will be taken in the OR. -Care per medical team. Jonathan Langston MD (Orthopaedic Surgery).
[2019-11-18 08:54] LABS: BASO % 0.7 % (0-2.0); EOS % 2.3 % (0-4.5); HEMATOCRIT 31.6 % (35.4-49); HEMOGLOBIN 10.4 GM/dL (11.7-16.9); LYMPH % 19.3 % (8-40); MCH 29.6 pg (25.7-33.7); MCHC 32.8 g/dl (32.0-35.9); MEAN CELL VOLUME 90.1 fl (80-96); MEAN PLT VOLUME 7.9 fl (7.5-11.1); MONO % 14.7 % (3.8-10.2); PLATELET COUNT 186 K/MM3 (134-434); RDW 15.4 % (11.9-15.9); WHITE BLOOD COUNT 3.1 K/mm3 (4.0-10.0)
--- NOTE | 2019-11-18 09:13 | EKG ---
Test Reason : Blood Pressure : / mmHG Vent. Rate : 073 BPM Atrial Rate : 073 BPM P-R Int : 254 ms QRS Dur : 110 ms QT Int : 410 ms P-R-T Axes : 067 -37 019 degrees QTc Int : 451 ms SINUS RHYTHM WITH 1ST DEGREE A-V BLOCK LEFT AXIS DEVIATION LEFT VENTRICULAR HYPERTROPHY SEPTAL INFARCT (CITED ON OR BEFORE 26-JUN-2018) ABNORMAL ECG Confirmed by MD OTONIEL, MOSES ([id number]) on 11/18/2019 9:12:59 AM Referred By: Confirmed By:MOSES FREDERICK MD
[2019-11-18 09:20] LABS: ALBUMIN 2.4 g/dl (3.4-5.0); BILIRUBIN,TOTAL 0.6 mg/dL (0.2-1); BLOOD UREA NITROGEN 13.3 mg/dL (7-18); CALCIUM 7.8 mg/dL (8.5-10.1); CREATININE 0.8 mg/dL (0.55-1.3); POTASSIUM 4.1 mmol/L (3.5-5.1); TOT PROT 6.8 g/dl (6.4-8.2)
[2019-11-18] MEDS ORDERED: PHENYTOIN SODIUM 100 MG/2 ML VIAL IVPB SCH ×2 (10:00→22:00)
[2019-11-18] MEDS ORDERED: CEFTRIAXONE 2 GM in DEXTROSE 5%-WATER 100 ML IVPB SCH (10:00)
[2019-11-18] MEDS ORDERED: PT OWN MED DRAWER 7, Y5N ONE (11:05)
[2019-11-18] MEDS ORDERED: VANCOMYCIN HCL 1,500 MG/500 ML BAG IVPB ONE (12:00)
[2019-11-18] MEDS ORDERED: VANCOMYCIN HCL 1,500 MG in DEXTROSE 5%-WATER - 250 ML IVPB SCH (12:00)
--- NOTE | 2019-11-18 12:52 | CON.ID ---
Consult Consult Specialty:: infectious diseases Referred by:: swelling and redness of the left knee joint Reason for Consultation:: infected left knee joint - History of Present Illness Chief Complaint: pain and non healing and open wound of left knee infected History of Present Illness: 68 y/o male with a significant past medical history of L -TKR (last year), DVT (on Coumadin), IVC Filter, HTN, Hypercholesterolemia, GERD, Seizure Disorder, BPH, OA. Who presents to the ED with several weeks of progressively worsening left knee pain and swelling with drainage. The patient reports that his left leg is now twice the size of his right leg. He reports that his Coumadin was stopped 5 days ago and his last injection of Lovenox was 11/16, for the scheduled surgery. Per the patient, he is scheduled for total knee replacement revision by Dr. Langston today, but was advised by Dr. Langston to present to the ED secondary to his present symptoms. Patient denies numbness, parasthesias. Patient denies fever, chills, cough, SOB, dizziness, LUU, CP, palpitations, AP, N/V/D, constipation, melena, hematochezia, hematuria, dysuria. Patient denies sick contacts or recent travel plan for the patient is to take the patient to or and have knee replacement - History Source History Provided By: Patient Limitations to Obtaining History: No Limitations - Alcohol/Substance Use Hx Alcohol Use: No - Smoking History Smoking history: Never smoked Have you smoked in the past 12 months: No Home Medications - Allergies Allergies/Adverse Reactions: Allergies Allergy/AdvReac Type Severity Reaction Status Date / Time No Known Allergies Allergy Verified 11/11/19 16:05 - Home Medications Home Medications: Ambulatory Orders RX: Phenytoin Sodium Extended 500 mg PO HS #90 capsule 07/15/18 RX: Warfarin Na [Coumadin -] 3 mg PO HS 07/24/18 Amlodipine-Olmesartan 10-40 mg 1 tab PO DAILY 11/11/19 Finasteride [Proscar] 5 mg PO DAILY 11/11/19 Fluticasone/Vilanterol [Breo Ellipta 100-25 Mcg INH] 1 each IH HS 11/11/19 Hydrochlorothiazide [Hctz -] 12.5 mg PO DAILY 11/11/19 RX: Enoxaparin [Lovenox -] 60 mg SQ Q12H 11/11/19 RX: Metoprolol Succinate 50 mg PO DAILY 11/11/19 Tamsulosin HCl [Flomax] 0.4 mg PO DAILY 11/11/19 RX: Tramadol HCl 50 mg PO TID 11/18/19 Family Medical History Family Hx Cancer: Mother (Unknown Type- age 60's) Other Family History: Father- MVA. Sister's- alive and healthy. Sons x3- alive and healthy Review of Systems - Review of Systems Constitutional: reports: No Symptoms Eyes: reports: No Symptoms HENT: reports: No Symptoms Neck: reports: No Symptoms Cardiovascular: reports: No Symptoms Respiratory: reports: No Symptoms Gastrointestinal: reports: No Symptoms Genitourinary: reports: No Symptoms Musculoskeletal: reports: Joint Pain, Other Integumentary: reports: Wound (open on the knee joint) Neurological: reports: No Symptoms Endocrine: reports: No Symptoms Hematology/Lymphatic: reports: No Symptoms Psychiatric: reports: No Symptoms Physical Exam Vital Signs: Vital Signs Temperature 99.1 F 11/18/19 10:00 Pulse Rate 73 11/18/19 10:00 Respiratory Rate 18 11/18/19 10:00 Blood Pressure 126/69 11/18/19 10:00 O2 Sat by Pulse Oximetry (%) 98 11/18/19 10:00 Constitutional: Yes: Well Nourished, No Distress, Calm Eyes: Yes: Conjunctiva Clear HENT: Yes: Atraumatic, Normocephalic Neck: Yes: Supple, Trachea Midline Cardiovascular: Yes: Regular Rate and Rhythm Respiratory: Yes: Regular, CTA Bilaterally Gastrointestinal: Yes: Normal Bowel Sounds, Soft Musculoskeletal: Yes: Other (open wound going to the bone on left knee joint) Extremities: Yes: Other Wound/Incision: Yes: Dressing Removed, Draining, Other (infected open wound on the bone joint) Neurological: Yes: Alert, Oriented Psychiatric: Yes: Alert, Oriented Labs: CBC, BMP 11/18/19 07:48 11/18/19 07:48 Imaging - Results Chest X-ray: Report Reviewed, Image Reviewed X-ray: Report Reviewed, Image Reviewed Assessment/Plan Problem List - Problems (1) Infection of prosthetic left knee joint Code(s): T84.54XA - INFECT/INFLM REACTION DUE TO INTERNAL LEFT KNEE PROSTH, INIT (2) Left leg DVT Code(s): I82.402 - ACUTE EMBOLISM AND THOMBOS UNSP DEEP VEINS OF L LOW EXTREM (3) Post-operative complication Code(s): T81.9XXA - UNSPECIFIED COMPLICATION OF PROCEDURE, INITIAL ENCOUNTER (4) Anemia Code(s): D64.9 - ANEMIA, UNSPECIFIED (5) BPH (benign prostatic hyperplasia) Code(s): N40.0 - BENIGN PROSTATIC HYPERPLASIA WITHOUT LOWER URINRY TRACT SYMP (6) DVT (deep venous thrombosis) Code(s): I82.409 - ACUTE EMBOLISM AND THOMBOS UNSP DEEP VN UNSP LOWER EXTREMITY wound infection plan will start patient on abx will need surgery wound care 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
[2019-11-18] MEDS ORDERED: METHYLENE BLUE 50 MG/10 ML AMPUL ONE (14:40)
[2019-11-18] MEDS ORDERED: VANCOMYCIN 1,000 MG VIAL (RESTRICTED TO ID ONLY) ONE (14:40)
[2019-11-18] MEDS ORDERED: MIDAZOLAM HCL 2 MG/2 ML SINGLE DOSE VIAL ONE ×3 (14:44→19:40)
[2019-11-18] MEDS ORDERED: PROPOFOL 20 ML ONE ×7 (14:44→18:16)
--- NOTE | 2019-11-18 16:29 | PN ---
Physical Exam: SUBJECTIVE: Patient seen and examined. Upon my evaluation, pt continue to have pain and swelling of L leg. Pt stated he is unsure of when his L leg swelling began, but knew it was very gradual since his procedure of his L knee. Denied fevers, chills, shortness of breath, chest pain, nausea, vomiting, diarrhea, numbness or tingling. OBJECTIVE: Vital Signs Period Temp Pulse Resp BP Sys/Gee Pulse Ox Last 24 Hr 97.9 F-99.1 F 69-91 18-20 126-154/69-87 96-100 GENERAL: AAOx3, not in acute distress. HEENT: NCAT, EOMI, moist mucus membranes. RESPIRATORY: CTA b/l, no wheezes CARDIAC: Regular rate and rhythm, s1 and s2 present, no murmurs. ABDOMEN: Obese, soft, not tender to palpation, bowel sounds present. EXTREMITIES: L knee tender to palpation, 2 open lesions visualized. Expressed yellow purulent fluid with red streaks. 2+ pitting edema LLE. 1+ pitting edema RLE. SKIN: LLE warm to the touch. Laboratory Last Values WBC 3.1 K/mm3 (4.0-10.0) L 11/18/19 07:48 RBC 3.50 M/mm3 (4.00-5.60) L 11/18/19 07:48 Hgb 10.4 GM/dL (11.7-16.9) L 11/18/19 07:48 Hct 31.6 % (35.4-49) L 11/18/19 07:48 MCV 90.1 fl (80-96) 11/18/19 07:48 MCH 29.6 pg (25.7-33.7) 11/18/19 07:48 MCHC 32.8 g/dl (32.0-35.9) 11/18/19 07:48 RDW 15.4 % (11.9-15.9) 11/18/19 07:48 Plt Count 186 K/MM3 (134-434) 11/18/19 07:48 MPV 7.9 fl (7.5-11.1) 11/18/19 07:48 Absolute Neuts (auto) 1.9 K/mm3 (1.5-8.0) 11/18/19 07:48 Neutrophils % 63.0 % (42.8-82.8) D 11/18/19 07:48 Lymphocytes % 19.3 % (8-40) D 11/18/19 07:48 Monocytes % 14.7 % (3.8-10.2) H 11/18/19 07:48 Eosinophils % 2.3 % (0-4.5) 11/18/19 07:48 Basophils % 0.7 % (0-2.0) 11/18/19 07:48 Nucleated RBC % 0 % (0-0) 11/18/19 07:48 PT with INR 14.10 SEC (9.7-13.0) H 11/17/19 23:20 INR 1.19 (0.83-1.09) H 11/17/19 23:20 PTT (Actin FS) 29.5 SECONDS (25.2-36.5) 11/17/19 23:20 Sodium 140 mmol/L (136-145) 11/18/19 07:48 Potassium 4.1 mmol/L (3.5-5.1) 11/18/19 07:48 Chloride 106 mmol/L (98-107) 11/18/19 07:48 Carbon Dioxide 29 mmol/L (21-32) 11/18/19 07:48 Anion Gap 5 MMOL/L (8-16) L 11/18/19 07:48 BUN 13.3 mg/dL (7-18) 11/18/19 07:48 Creatinine 0.8 mg/dL (0.55-1.3) 11/18/19 07:48 Est GFR (CKD-EPI)AfAm 104.90 11/18/19 07:48 Est GFR (CKD-EPI)NonAf 90.51 11/18/19 07:48 Random Glucose 170 mg/dL (74-106) H 11/18/19 07:48 Lactic Acid 0.9 mmol/L (0.4-2.0) 11/17/19 21:50 Calcium 7.8 mg/dL (8.5-10.1) L 11/18/19 07:48 Total Bilirubin 0.6 mg/dL (0.2-1) 11/18/19 07:48 AST 25 U/L (15-37) 11/18/19 07:48 ALT 22 U/L (13-61) 11/18/19 07:48 Alkaline Phosphatase 160 U/L (45-117) H 11/18/19 07:48 Total Protein 6.8 g/dl (6.4-8.2) 11/18/19 07:48 Albumin 2.4 g/dl (3.4-5.0) L 11/18/19 07:48 Vancomycin Pre-Dose 11.5 ug/ml (5-10) H 11/18/19 12:30 Phenytoin 14.9 11/18/19 12:30 Blood Type A POSITIVE 11/17/19 23:20 Antibody Screen Negative 11/17/19 23:20 Crossmatch See Detail 11/17/19 23:20 Active Medications Dextrose/Sodium Chloride (D5-1/2ns -) 1,000 mls @ 100 mls/hr IV ASDIR [facility] Last Admin: 11/18/19 02:46 Dose: 100 mls/hr Documented by: Phenytoin Sodium (Dilantin Injection -) 250 mg IVPB BID [facility] Last Admin: 11/18/19 12:13 Dose: 250 mg Documented by: ASSESSMENT/PLAN: 68 year old M PMH L TKR 2018, DVT 2017 (on coumadin s/p IVC filter), HTN, hypercholesterolemia, GERD, seizure disorder, BPH, OA who presented with worsening L knee pain and swelling with drainage for several weeks. Pt admitted for infected L knee. L infected periprosthetic knee - Pt is for OR with Dr. Langston for I&D left knee, removal L TKA hardware, placement left knee antibiotic spacer, tibial tubercle osteotomy - Monitor drain output, I/O's - Pending blood culture and wound culture - Encourage incentive spirometry q15 min. -PT/OT/Rehab, OOB. Strict non-weight bearing - Ancef 2g IV intraoperatively - Pain control w/ CLOTH BIN PACKER - c/w bowel regimen Seizure disorder -c/w dilantin 250 BID H/o DVT - Duplex lower extremity shows L popliteal vein DVT that is old, but persistent - Consider heme/onc consult. HTN, Hypercholesterolemia - c/w home amlodipine-olmesartan 10-40mg qD, ASA 81, HCTZ 12.5 qD, metoprolol 50mg qD BPH -c/w home tamsulosin, finasteride FEN - D5- 1/2ns @ 100 -Monitor and replete electrolytes -Diet as tolerated Ppx - DVT: Lovenox - GI: PPI Dispo: monitor on med-surg Visit type - Emergency Visit Emergency Visit: Yes ED Registration Date: 11/17/19 Care time: The patient presented to the Emergency Department on the above date and was hospitalized for further evaluation of their emergent condition. - New Patient This patient is new to me today: No - Critical Care Critical Care patient: No - Medication Review Med list reviewed for High Risk Meds patients 65 and older: Yes ATTENDING PHYSICIAN STATEMENT I saw and evaluated the patient. I reviewed the resident's note and discussed the case with the resident. I agree with the resident's findings and plan as documented. SUBJECTIVE: OBJECTIVE: ASSESSMENT AND PLAN:
[2019-11-18] MEDS ORDERED: VANCOMYCIN 1,000 MG VIAL (RESTRICTED TO ID ONLY) IVPB ONE (18:39)
[2019-11-18] MEDS ORDERED: ceFAZolin SODIUM 1 GM VIAL ONE (18:58)
[2019-11-18] MEDS ORDERED: MAG HYDROX/AL HYDROX/SIMETH 30 ML UNIT-DOSE CUP PO PRN ×2 (19:44→21:46)
[2019-11-18] MEDS ORDERED: MAGNESIUM HYDROX 2400MG/30ML ORAL SUSPENSION 30 ML CUP PO PRN ×2 (19:44→21:46)
[2019-11-18] MEDS ORDERED: ONDANSETRON 4 MG/2 ML VIAL IVPUSH PRN ×2 (19:44→21:46)
[2019-11-18] MEDS ORDERED: LACTATED RINGERS SOLUTION 1,000 ML IV SCH ×4 (19:45→21:46)
[2019-11-18] MEDS ORDERED: HYDROmorphone *PCA* 10MG/50ML DISP.SYRIN PCA SCH ×2 (20:00→21:46)
--- NOTE | 2019-11-18 20:03 | PN ---
Progress Note (short form) - Note Progress Note: 68M s/p I&D left knee, removal of infected left knee hardware, and placement of antibiotic spacer POD #0. -Pain control: as per anesthesia team; recommend DIRECTOR SEARCH. -DVT PPx: -Please obtain hematology consultation d/t L popliteal vein DVT (old, but persistent). -Chemical: Lovenox, Warfarin: bridge to therapeutic INR (2-3). -Mechanical: BARB's, SCD's. -Incentive spirometry q15 min. -PT/OT/Rehab, OOB. -Strict NWB RLE. -Post-op antibiotics: Ancef 2g IV until intra-op specimen speciation is completed and antibiotic sensitivities have resulted. -Maintain dunham catheter 24-48 hours post-op to ensure I's & O's are balanced. -f/u AM labs. -f/u drain output. -Diet as tolerated. -Care per medical hospitalist, hematology, & ICU teams. -Will follow. Jonathan Langston MD (Orthopaedic Surgery).
--- NOTE | 2019-11-18 20:08 | OP ---
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 I&D left knee. 2. Removal L TKA hardware. 3. Placement left knee antibiotic spacer. 4. Tibial tubercle osteotomy Findings: See dictation Tourniquet Pressure: 400mmHg Tourniquet Time: 175 minutes Post-Operative Diagnosis: Same as Pre-op Surgeon: Jonathan Langston Sample Color Maker: Hilario Langston Anesthesiologist/ATTORNEY AT [employer]: Christine Melissa Anesthesia: Spinal Specimens Removed: Left knee hardware. Left knee deep tissue, phlegmon Estimated Blood Loss (mls): 50 Drains & Tubes with Location: 1 x deep HemoVac Fluid Volume Replaced (mls): 1,900 (Crystalloid) Operative Report Dictated: Yes
[2019-11-18] MEDS ORDERED: DEXTROSE 5%-0.45% SALINE 1,000 ML IV SCH (21:46)
[2019-11-18] MEDS ORDERED: WARFARIN NA 10 MG TABLET PO SCH (22:00)
[2019-11-18] MEDS ORDERED: CHLORHEXIDINE GLUCONATE 4% CLEANSER FOR DECOLONIZATION TP SCH (22:00)
[2019-11-18] MEDS ORDERED: ASPIRIN 81 MG CHEWABLE TABLETS PO SCH (22:00)
[2019-11-18] MEDS ORDERED: SENNOSIDES/DOCUSATE COMBO (SENNA PLUS) TABLET (UD) PO SCH (22:00)
[2019-11-18] MEDS ORDERED: PHENYTOIN NA EXTENDED 100 MG CAPSULE (FP) PO SCH ×2 (22:00)
[2019-11-18] MEDS: MUPIROCIN 2% TOPICAL OINTMENT FOR DECOLONIZATION NS SCH (23:19)
[2019-11-18] MEDS: ASPIRIN COATED 81 MG TABLET.EC PO SCH (23:20)
[2019-11-18] MEDS: SENNOSIDES/DOCUSATE COMBO (SENNA PLUS) TABLET (UD) PO SCH (23:20)
--- NOTE | 2019-11-18 23:55 | CONSULT ---
Consultation: REQUESTING PROVIDER: Dr. Langston CONSULT REQUEST: We have been asked to medically evaluate this patient for ICU admission HISTORY OF PRESENT ILLNESS: This is a 68 year old male with PMH of L TKR (2019), DVT (on Warfarin, IVC filter), HTN, Seizures, and BPH. Pt was initially scheduled for L total knee replacement on 11/16, but was referred to the ER by Dr. Langston after he was foudn to have worsening L knee pain and discharge for the past few days. In anticipation for surgery, Warfarin was stopped 5 days ago, last injection of Lovenox was 11/16. He underwent I&D L knee, removal of infected left knee hardware, and placement of antibiotic spacer today and is being transferred to the ICU for monitoring. Pt's LLE dressing was soaked in blood. Dressing was removed and pt was found to be actively bleeding. Dr. Langston was contacted, who took him in to the OR overnight. ER course was notable for: (1) LLE Duplex: L popliteal vein thrombosis, several nonspecific mildly enlarged left inguinal lymph nodes are seen REVIEW OF SYSTEMS: CONSTITUTIONAL: Absent: fever, chills, diaphoresis, generalized weakness, malaise, loss of appetite, weight change HEENT: Absent: rhinorrhea, nasal congestion, throat pain, throat swelling, difficulty swallowing, mouth swelling, ear pain, eye pain, visual changes CARDIOVASCULAR: Absent: chest pain, syncope, palpitations, irregular heart rate, lightheadedness, peripheral edema RESPIRATORY: Absent: cough, shortness of breath, dyspnea with exertion, orthopnea, wheezing, stridor, hemoptysis GASTROINTESTINAL: Absent: abdominal pain, abdominal distension, nausea, vomiting, diarrhea, constipation, melena, hematochezia GENITOURINARY: Absent: dysuria, frequency, urgency, hesitancy, hematuria, flank pain, genital pain MUSCULOSKELETAL: Absent: myalgia, arthralgia, joint swelling, back pain, neck pain SKIN: Absent: rash, itching, pallor HEMATOLOGIC/IMMUNOLOGIC: Absent: easy bleeding, easy bruising, lymphadenopathy, frequent infections ENDOCRINE: Absent: unexplained weight gain, unexplained weight loss, heat intolerance, cold intolerance NEUROLOGIC: Absent: headache, focal weakness or paresthesias, dizziness, unsteady gait, seizure, mental status changes, bladder or bowel incontinence PSYCHIATRIC: Absent: anxiety, depression, suicidal or homicidal ideation, hallucinations. PHYSICAL EXAMINATION Vital Signs - 24 hr 11/18/19 11/18/19 11/18/19 01:30 03:07 03:23 Temperature 98.7 F Pulse Rate 70 Pulse Rate [ 69 Apical] Respiratory 20 20 20 Rate Blood Pressure 143/73 Blood Pressure 146/87 [Right Arm] O2 Sat by Pulse 100 98 98 Oximetry (%) 11/18/19 11/18/19 11/18/19 06:00 10:00 19:50 Temperature 98.7 F 99.1 F 97.5 F L Pulse Rate 72 73 57 L Pulse Rate [ Apical] Respiratory 20 18 13 Rate Blood Pressure 154/78 126/69 139/96 Blood Pressure [Right Arm] O2 Sat by Pulse 97 98 99 Oximetry (%) 11/18/19 11/18/19 11/18/19 20:00 21:45 22:16 Temperature 98.3 F Pulse Rate 55 L 33 L Pulse Rate [ Apical] Respiratory 15 13 Rate Blood Pressure 142/97 141/88 Blood Pressure [Right Arm] O2 Sat by Pulse 100 100 100 Oximetry (%) 11/18/19 23:00 Temperature 98.0 F Pulse Rate 89 Pulse Rate [ Apical] Respiratory 17 Rate Blood Pressure 153/86 Blood Pressure [Right Arm] O2 Sat by Pulse 94 L Oximetry (%) GENERAL: Awake, alert, complaining of pain in L leg LUNGS: Breath sounds equal, clear to auscultation bilaterally. No wheezes, and no crackles. No accessory muscle use. HEART: Regular rate and rhythm, normal S1 and S2 without murmur, rub or gallop. ABDOMEN: Soft, nontender, not distended, normoactive bowel sounds, no guarding, no rebound, no masses. No hepatomegaly or splenomegaly. LOWER EXTREMITIES: L leg bandaged, dressing soaked in blood, on removal pt actively bleeding from surgical incision site, drain empty NEUROLOGICAL: Cranial nerves II-XII intact. Normal speech. Normal gait. Laboratory Results - last 24 hr 11/17/19 11/17/19 11/18/19 23:20 23:20 07:48 WBC 3.1 L RBC 3.50 L Hgb 10.4 L Hct 31.6 L MCV 90.1 MCH 29.6 MCHC 32.8 RDW 15.4 Plt Count 186 MPV 7.9 Absolute Neuts (auto) 1.9 Neutrophils % 63.0 D Lymphocytes % 19.3 D Monocytes % 14.7 H Eosinophils % 2.3 Basophils % 0.7 Nucleated RBC % 0 PT with INR 14.10 H INR 1.19 H PTT (Actin FS) 29.5 Sodium Potassium Chloride Carbon Dioxide Anion Gap BUN Creatinine Est GFR (CKD-EPI)AfAm Est GFR (CKD-EPI)NonAf Random Glucose Calcium Total Bilirubin AST ALT Alkaline Phosphatase Total Protein Albumin Vancomycin Pre-Dose Phenytoin Blood Type A POSITIVE Antibody Screen Negative Crossmatch See Detail 11/18/19 11/18/19 11/18/19 07:48 12:30 12:30 WBC RBC Hgb Hct MCV MCH MCHC RDW Plt Count MPV Absolute Neuts (auto) Neutrophils % Lymphocytes % Monocytes % Eosinophils % Basophils % Nucleated RBC % PT with INR INR PTT (Actin FS) Sodium 140 Potassium 4.1 Chloride 106 Carbon Dioxide 29 Anion Gap 5 L BUN 13.3 Creatinine 0.8 Est GFR (CKD-EPI)AfAm 104.90 Est GFR (CKD-EPI)NonAf 90.51 Random Glucose 170 H Calcium 7.8 L Total Bilirubin 0.6 AST 25 ALT 22 Alkaline Phosphatase 160 H Total Protein 6.8 Albumin 2.4 L Vancomycin Pre-Dose 11.5 H Phenytoin 14.9 Blood Type Antibody Screen Crossmatch Active Medications Generic Name Dose Route Start Last Admin Trade Name Freq PRN Reason Stop Dose Admin Al Hydroxide/Mg Hydroxide 30 ml 11/18/19 21:46 Mylanta Oral Suspension - PO Q4H PRN DYSPEPSIA Amlodipine Besylate 10 mg 11/19/19 10:00 Norvasc - PO DAILY [facility] Aspirin 81 mg 11/18/19 22:00 11/18/19 23:20 Ecotrin - PO 81 mg BID [facility] Administration Budesonide/Formoterol Fumarate 2 puff 11/19/19 10:00 Symbicort 80/4.5mcg - IH BID [facility] Chlorhexidine Gluconate 1 applic 11/18/19 22:00 11/18/19 23:20 Hibiclens For Decolonization - TP 1 applic HS [facility] Administration Enoxaparin Sodium 60 mg 11/19/19 10:00 Lovenox - SQ Q12H FERNANDA Finasteride 5 mg 11/19/19 10:00 Proscar - PO DAILY [facility] Hydrochlorothiazide 12.5 mg 11/19/19 10:00 Hctz - PO DAILY [facility] Hydromorphone HCl 10 mg 11/18/19 21:46 11/18/19 20:40 Hydromorphone 10 Mg/50 Ml-Ns COAT MAKER 11/25/19 19:54 10 mg COAT MAKER FERNANDA Administration Protocol Cefazolin Sodium/Dextrose 2 gm in 50 mls @ 100 mls/hr 11/19/19 01:00 Ancef 2 Gm Premixed Ivpb - IVPB 11/20/19 00:59 Q6H [facility] Lactated Ringer's 1,000 mls @ 125 mls/hr 11/18/19 21:46 11/18/19 23:24 Lactated Ringers Solution IV 11/19/19 06:00 125 mls/hr ASDIR FER[facility]DA Administration Losartan Potassium 100 mg 11/19/19 10:00 Losartan Potassium PO DAILY [facility] Magnesium Hydroxide 30 ml 11/18/19 21:46 Milk Of Magnesia - PO PRN PRN CONSTIPATION Metoprolol Succinate 50 mg 11/19/19 10:00 Toprol Xl - PO DAILY [facility] Mupirocin 1 applic 11/18/19 22:00 11/18/19 23:19 Bactroban Ointment (For Decolonization) - NS 11/23/19 21:59 1 applic BID [facility] Administration Ondansetron HCl 4 mg 11/18/19 21:46 Zofran Injection IVPUSH Q6H PRN NAUSEA Pantoprazole Sodium 40 mg 11/19/19 10:00 Protonix - PO DAILY [facility] Phenytoin Sodium 500 mg 11/18/19 22:00 Dilantin - PO HS [facility] Senna/Docusate Sodium 2 tablet 11/18/19 22:00 11/18/19 23:20 Pericolace - PO 2 tablet BID [facility] Administration Tamsulosin HCl 0.4 mg 11/19/19 08:30 Flomax - PO DAILY@0830 [facility] ASSESSMENT/PLAN: 68M with PMH of L TKR (2018), DVT (on Warfarin, IVC filter), HTN, Seizures, and BPH. Pt was initially scheduled for L total knee replacement on 11/16, but was referred to the ER by Dr. Langston after he was found to have worsening L knee pain and discharge for the past few days. In anticipation for surgery, Warfarin was stopped 5 days ago, last injection of Lovenox was 11/16. He underwent I&D L knee, removal of infected left knee hardware, and placement of antibiotic spacer today and is being transferred to the ICU for monitoring. #STAFF EDUCATOR - Phenytoin 500mg HS PO for seizures resumed - COAT MAKER for pain #CVS - Resume home BP meds: HCTZ, Losartan, Norvasc, Metoprolol Succinate #Respiratory -Incentive spirometry q15 min. -PT/OT/Rehab, OOB. #GI - Protonix 40mg PO daily - On Miralax, Colace, Mylanta #Renal - Maintain dunham catheter 24-48 hours post-op to ensure I's & O's are balanced. - Resume home Flomax, Proscar for BPH #Heme - On Lovenox 60mg Q12H - Heme consult for old but persistent DVT - Pt actively bleeding from surgical site, CBC ordered Hg was 11.6 #ID - Ancef 2g IV until intra-op specimen speciation is completed and antibiotic sensitivities have resulted. - Blood, urine, wound cx ordered - ID on board #FEN - LR@125 #Prophylaxis - Holding Lovenox 60mg Q12, Warfarin: bridge to therapeutic INR (2-3) #Dispo - Will continue to monitor in ICU ATTENDING PHYSICIAN STATEMENT I saw and evaluated the patient. I reviewed the resident's note and discussed the case with the resident. I agree with the resident's findings and plan as documented. SUBJECTIVE: OBJECTIVE: ASSESSMENT AND PLAN:
[2019-11-19] MEDS ORDERED: CEFAZOLIN 2 GM/D5W 2 GM/50 ML ML IVPB SCH ×3 (01:00→12:00)
[2019-11-19 01:56] LABS: BASO % 0.6 % (0-2.0); EOS % 0.9 % (0-4.5); HEMATOCRIT 36.2 % (35.4-49); HEMOGLOBIN 11.6 GM/dL (11.7-16.9); LYMPH % 5.4 % (8-40); MCH 29.4 pg (25.7-33.7); MEAN CELL VOLUME 91.9 fl (80-96); MEAN PLT VOLUME 7.8 fl (7.5-11.1); MONO % 9.2 % (3.8-10.2); NEUT % 83.9 % (42.8-82.8); PLATELET COUNT 189 K/MM3 (134-434); RBC 3.94 M/mm3 (4.00-5.60); RDW 15.7 % (11.9-15.9); WHITE BLOOD COUNT 8.3 K/mm3 (4.0-10.0)
[2019-11-19] MEDS ORDERED: RAPID SEQUENCE INTUBATION KIT NR ONE (02:14)
[2019-11-19] MEDS ORDERED: PROPOFOL 20 ML ONE (03:23)
[2019-11-19] MEDS ORDERED: SUCCINYLCHOLINE CHLORIDE 200 MG/10 ML SYRINGE ONE (03:23)
[2019-11-19] MEDS ORDERED: ETOMIDATE 20 MG/10 ML AMPUL IVPUSH ONE (03:36)
[2019-11-19] MEDS ORDERED: ROCURONIUM BROMIDE 100 MG/10 ML VIAL ONE (03:41)
[2019-11-19] MEDS ORDERED: THROMBIN (BOVINE) 5,000 UNIT VIAL TP ONE ×2 (04:08→04:49)
[2019-11-19] MEDS ORDERED: ceFAZolin SODIUM 1 GM VIAL ONE (05:05)
[2019-11-19] MEDS ORDERED: ceFAZolin SODIUM 1 GM VIAL IVPB ONE (05:05)
[2019-11-19] MEDS ORDERED: NEOSTIGMINE METHYLSULFATE 0.5 MG/ML - 10 ML MDV ONE (05:11)
[2019-11-19] MEDS ORDERED: GLYCOPYRROLATE 0.2 MG/1 ML VIAL ONE (05:12)
[2019-11-19] MEDS ORDERED: MIDAZOLAM HCL 2 MG/2 ML SINGLE DOSE VIAL ONE (05:35)
[2019-11-19] MEDS ORDERED: ONDANSETRON 4 MG/2 ML VIAL IVPUSH PRN ×2 (06:05→13:49)
[2019-11-19] MEDS ORDERED: LACTATED RINGERS SOLUTION 1,000 ML IV SCH (06:15)
--- NOTE | 2019-11-19 07:03 | OP ---
DATE OF OPERATION: DATE OF DICTATION: 11/18/2019 SURGEON: Jonathan Langston MD CUSTOMER ACCOUNT ADMINISTRATOR: Hilario Langston MD PREOPERATIVE DIAGNOSIS: Septic left total knee arthroplasty in a morbidly obese man with previous anticoagulation history. POSTOPERATIVE DIAGNOSIS: Septic left total knee arthroplasty in a morbidly obese man with previous anticoagulation history. OPERATION PERFORMED: 1. Explant of the entire left knee, that is femur, tibia, and patella. (86170) 2. Debridement, reaming, irrigation, femur, tibia. 3. Extensive debridement of soft tissue in the knee and proximal tibia and femoral region. 4. Tibial tubercle osteotomy. (57328) 5. Insertion of polymethylmethacrylate spacers including polymethylmethacrylate tubes proximal and distal in the femur. 6. Complex wound closure, 40 cm. ANESTHESIA: General anesthesia with spinal. ANTIBIOTIC GIVEN: Ancef 2 g given at the time of release of the tourniquet. PREOPERATIVE INDICATIONS: Patient was subjected to bilateral knee replacement surgery almost 18 months ago. The left lower extremity developed a deep vein thrombosis which was confined to the popliteal vein. Full anticoagulation performed at that time resulted in a hemarthrosis in the left knee. Due to the inability to attend to the hemarthrosis in terms of incision and drainage due to excessively elevated INR readings, the surgery was delayed for up to 14 days. Unfortunately, the hematoma converted to a purulent mass. This was dealt with initially with an incision and drainage, polyethylene exchange. A full debridement performed at that time. The wound was washed out thoroughly, placed in a knee immobilizer, but unfortunately, with the progression of time, this infection persisted, and due to his morbid obesity and secondary to the COVID infection and delay of being able to attend to this problem, the surgery was delayed until now. Patient was on anticoagulation. This was stopped 10 days ago. Bridging heparin was given, that in the form of Lovenox. OPERATION DETAILS: In the supine position, a tourniquet was applied. The left lower extremity was prepped and draped in the routine manner with Betadine scrub solution, wiped off with alcohol, and DuraPrep applied. It must be noted this was an extremely heavy limb with 1 large draining sinus in the mid-anterior section of the knee encountered. This also was an unusual sinus in that alongside this appeared to be a classical pyogenic granuloma which caused significant concern in terms of incision. The old wound was opened. Purulence was encountered once the knee joint was exposed. Hypertrophic soft tissue, fibrotic tissue formation had occurred in the interim, from the time of the last surgery until now. This included heterotopic ossification within the confines of the bone, both medially and laterally in the area of the distal femur. A tibial tubercle osteotomy was performed in order to gain exposure. At this point, I highlighted the fact that the entire dissection was extraordinarily difficult because of the thickness of the tissues, the difficulty of exposure, and the heterotopic ossification in the bone, bringing about difficulty for excising this material. An extensive amount of tissue was excised and sent to the lab for culture, sensitivity, as well as histopathology. In order to gain access to the knee, a tibial tubercle osteotomy was necessary. This measured approximately 11 cm from the top of the tibial tubercle to the shaft of the tibia. This was a coronal-based tibial tubercle osteotomy transection anteriorly of the distal end of the osteotomy, facilitated the osteotomy to be broken open, keeping the muscle attached laterally, and even with this, exposure of the knee was difficult. The femoral component was solidly seated. We utilized a Gigli saw to cut the bone between cement and metal, and then, osteotomes were utilized, that combined with small oscillating saws enabled us to eventually extricate the femoral component with minimal bone loss. Whatever osteolysis occurred was as a result of infection as a thick layer of membrane and fibrous material was in the interspace between the implant and the bone bed. This clearly appeared to be infected. It had that appearance of infected granulation tissue. The tibial component also was seated solidly and not loose. A microsagittal saw was utilized to break the tam between the undersurface of the tibial plateau circumferentially right around. The value of the tibial tubercle osteotomy facilitated breaking the bonds between the cement mantle and the stem of the implant, and the implant was removed and all cement removed as well. Reaming of the tibia was to size 13, and reaming of the femoral component was to size 14. Using reverse hooks, both bony canals were freed of all soft tissue. Purulent material was noted in both the tibia and the femoral intramedullary canals. The reaming was to remove the endosteal surface which clearly was infected. Thorough lavage and sealing of the canals were performed intraoperatively, sealing with sponges to disallow any material from the knee component of the debridement to fall into the already-cleaned tubes of bone as outlined above. Extensive debridement of the distal femur. There was significant bone loss in the distal femur, but enough at this present stage to warehouse receiver that I would be able to re-implant a revision knee arthroplasty with a stem prosthesis and appropriate distal femoral buildups. The tibial component: A minimal bone loss was encountered. The bone beds were thoroughly cleansed with the use of curets, osteotomes, and even feathering the bone with an oscillating saw to remove all superficial and surface layer of bone which presumably is infected. All of this was removed appropriately and lavaged appropriately. A complete synovectomy of the entire knee was then performed, excising all the infected tissue. At that point, 2 tubes of cement were manufactured in the operating room. We used tobramycin instilled polymethylmethacrylate and added 1 g of vancomycin into each one. The cement was then pumped into a 32-Hebrew chest tube. The tubes became solid and the plastic around the tube resected. The appropriate stems of cement also encased a FiberWire for extrication of the cement at a later date. A separately mixed cement with tobramycin and vancomycin was made into a biscuit and packed into the space between the bone ends as well as the remaining medullary component of the proximal tibia to fill the space, thus obliterating space and also providing an antibiotic elution into the tissues. The patella interestingly had migrated itself through osteolysis through the actual anterior cortex as once we had removed the patella, there was a hole in the anterior aspect of the patella. The wounds were thoroughly lavaged. Prior to the insertion of the cement, a 3-minute Betadine 50% soak, that is the entire wound was filled with Betadine solution and left for 3 minutes. This was then sucked out and the entire bone and soft tissues thoroughly lavaged with at least another 7-10 L of saline. CLOSURE: The tibial tubercle was repositioned with finger/digital pressure. Lautenbach sutures were utilized to hold the tibial tubercle back in position. The Lautenbach sutures continued proximally right up to the quadriceps, closing the skin, subcutaneous tissue, and muscle and bone all with 1 suture which will all ultimately be removed in 3 weeks, thus removing all foreign material. The only foreign material that will be left behind will be the cement which has been inserted. Between the Lautenbach sutures, danny were utilized to close the skin. A large Hemovac drain was inserted, brought out laterally. The wounds were dressed with routine dressings including a thick, bulky Sandoval-Arizmendi type dressing, and this was then overlaid with a knee immobilizer. At the end of release of the tourniquet, 1 minute prior to the release of the tourniquet, 2 g of Ancef were given. The toes appeared pink postoperatively. Extensive bleeding was noted postoperatively. After manual pressure by myself and my colleague/educational/development assistant, this eventually stopped. This appeared to be superficial skin bleeders which were not surprising as in opening the skin initially the entire subcutaneous tissue was hyperemic due to abnormal vascular supply. Postoperative x-rays revealed excellent seating of the rods going up and down the femur. OVERALL COMMENT: Patient did well and will be nursed in the ICU, and the plan is to go ahead with the original arthroplasty in anything from 8-12 weeks once the epithelium is completely sealed and clean. MD HOLLY Rousseau/[id number] MTDD
--- NOTE | 2019-11-19 08:22 | OP ---
DATE OF OPERATION: DATE OF DICTATION: 11/19/2019 SURGEON: Jonathan Langston MD PREOPERATIVE DIAGNOSIS: Postoperative hematoma and hemorrhage, left knee. POSTOPERATIVE DIAGNOSIS: Postoperative hematoma and hemorrhage, left knee. OPERATION PERFORMED: Arthrotomy left knee with incision, drainage, washout. ( [id number]) HEMOSTASIS: Achieved at primary closure (complex wound closure). ANESTHESIA: General. ANTIBIOTICS GIVEN: Two g Ancef given at the end of the procedure. At time of the operation approximately 3 a.m. last antibiotics were given at 1 a.m. We gave this next dose of antibiotics at 5 a.m. OPERATION DETAILS: Patient was correctly identified, brought to operating room. Left lower extremity the entire bandaging was taken down. Hemorrhage was copious through the wound. No suction in the drain noted. Extensive bleeding through the actual suture line. The sutures and danny were removed. The entire wound was opened up completely. Large hematoma which was coagulated well was washed out. Multiple arterial bleeders were noted, diffuse bleeding throughout all the soft tissues. Tourniquet was applied, but not inflated. After thorough lavage and just simply taking time to diathermize as many of the bleeders as possible without causing any significant necrosis of soft tissue, this is what was performed. The tissues were bathed in thrombin as well and control of the hemorrhage was gratifyingly achieved approximately after spending about an hour and a half of doing this. The wounds were thoroughly lavaged again. The wounds were virtually dry, bone dry by the time we started closing the tissues. Closure was as follows: This was a complex wound closure with the tibial tubercle incorporated in the suture line of Lautenbach sutures with No. 1 PDS, fascia approximated with No. 1 Vicryl. The remaining deep and superficial tissues were closed with Lautenbach No. 1 PDS sutures throughout. Danny were utilized to close the tissues between. This closed the wound completely. Two large Hemovac spaces where 19-Frisian drains were inserted, one medial, one lateral, brought out distally. The dressing applied was a bulky dressing with a knee immobilizer. Patient tolerated the procedure well. One pint of blood was started in the operating room. His starting hemoglobin by the time we entered the room was approximately 10. However, we lost about 1 L of blood and elected to go ahead and provide him with appropriate transfusion. Patient will be nursed in the ICU. No other complications. MD HOLLY Rousseau/[id number] MTDD
[2019-11-19] MEDS ORDERED: TAMSULOSIN HCL 0.4 MG CAP PO SCH ×2 (08:30)
[2019-11-19 08:39] LABS: HEMATOCRIT 31.5 % (35.4-49); HEMOGLOBIN 10.2 GM/dL (11.7-16.9); MCH 29.2 pg (25.7-33.7); MCHC 32.4 g/dl (32.0-35.9); MEAN CELL VOLUME 90.1 fl (80-96); MEAN PLT VOLUME 7.8 fl (7.5-11.1); PLATELET COUNT 155 K/MM3 (134-434); RDW 15.5 % (11.9-15.9); WHITE BLOOD COUNT 8.8 K/mm3 (4.0-10.0)
[2019-11-19 09:10] LABS: BLOOD UREA NITROGEN 9.6 mg/dL (7-18); CALCIUM 7.9 mg/dL (8.5-10.1); CREATININE 0.8 mg/dL (0.55-1.3); POTASSIUM 4.2 mmol/L (3.5-5.1)
[2019-11-19] MEDS ORDERED: FINASTERIDE 5 MG TABLET (FP) PO SCH ×2 (10:00)
[2019-11-19] MEDS ORDERED: LOSARTAN POTASSIUM 100 MG TABLET PO SCH (10:00)
[2019-11-19] MEDS ORDERED: AMLODIPINE OLMESARTAN PO SCH (10:00)
[2019-11-19] MEDS ORDERED: PANTOPRAZOLE 40 MG TABLET PO SCH ×2 (10:00)
[2019-11-19] MEDS ORDERED: LOSARTAN POTASSIUM 50 MG TABLET PO SCH (10:00)
[2019-11-19] MEDS ORDERED: HYDROCHLOROTHIAZIDE 12.5 MG CAPSULE (FP) PO SCH ×2 (10:00)
[2019-11-19] MEDS ORDERED: ENOXAPARIN NA (PORCINE) 60 MG/0.6 ML DISP.SYRIN SQ SCH ×2 (10:00)
[2019-11-19] MEDS ORDERED: amLODIPine BESYLATE 10 MG TABLET (FP) PO SCH (10:00)
[2019-11-19] MEDS ORDERED: BUDESONIDE/FORMETEROL FUMARATE 80/4.5 mcg INHALER IH SCH (10:00)
--- NOTE | 2019-11-19 10:55 | PN ---
Progress Note (short form) - Note Progress Note: ORTHOPAEDIC SURGERY POD #1 Doing well. C/o incisional tenderness. Pain controlled well with medications ordered. Denies n/v/f/c, CP, palpitations, SOB or PERKINS. Last Vital Signs Temp Pulse Resp BP Pulse Ox 99.3 F 107 H 11 131/73 100 11/19/19 09:15 11/19/19 10:30 11/19/19 10:30 11/19/19 10:30 11/19/19 10:30 CBC, BMP 11/19/19 08:05 11/19/19 08:25 Serology Test 11/17/19 23:50 COVID-19 (CRYSTAL) Not detected Drain Output since surgery 11/18/19 11/18/19 11/19/19 11/19/19 11/19/19 20:00 21:35 08:10 09:23 09:23 Hemovac 120 100 25 40 25 Microbiology 11/17/19 23:20 Knee - Left Wound Culture - Final Non Lactose Fermenting Gnb Group D Strep Or Entero Coccus Proteus Species 11/18/19 16:37 Knee - Left LIDIA Preparation - Preliminary 11/18/19 16:37 Knee - Left Fungal Culture - Preliminary 11/18/19 16:37 Knee - Left AFB Smear Concentration - Preliminary 11/18/19 16:37 Knee - Left Mycobacterial Culture - Preliminary A/P: 68 yo male POD #1 s/p I&D left knee. Removal L TKA hardware. Placement left knee antibiotic spacer. Tibial tubercle osteotomy. Prosthetic joint infection. Admitted to ICU for continued monitoring. -Pain control -DVT PPx: -ASA 81 mg PO BID x6 weeks -TEDs & SCDs -Incentive spiromter -Monitor/record drain ouput q shift -f/u CBC, BMP in AM -Cont care per ICU -ID following -Cont IV ABX -Weight bearing RLE. Non-weight bearing on LLE. Above plan discussed with Drs. Langston and kevyn. Problem List - Problems (1) Infection of prosthetic left knee joint Code(s): T84.54XA - INFECT/INFLM REACTION DUE TO INTERNAL LEFT KNEE PROSTH, INIT (2) HTN (hypertension) Code(s): I10 - ESSENTIAL (PRIMARY) HYPERTENSION (3) Obesity (BMI 30-39.9) Code(s): E66.9 - OBESITY, UNSPECIFIED (4) Left leg DVT Code(s): I82.402 - ACUTE EMBOLISM AND THOMBOS UNSP DEEP VEINS OF L LOW EXTREM (5) DVT (deep venous thrombosis) Code(s): I82.409 - ACUTE EMBOLISM AND THOMBOS UNSP DEEP VN UNSP LOWER EXTREMITY
[2019-11-19] MEDS: MUPIROCIN 2% TOPICAL OINTMENT FOR DECOLONIZATION NS SCH (11:31)
[2019-11-19] MEDS: ASPIRIN COATED 81 MG TABLET.EC PO SCH ×2 (12:09→21:51)
--- NOTE | 2019-11-19 13:04 | CON.HO ---
Consult Consult Specialty:: Hematology Reason for Consultation:: Chronic DVT - History of Present Illness Chief Complaint: Left Knee Pain and Edema History of Present Illness: 68M with L TKR 2019, L LE DVT on comadin(sine 2016), IVC filter, HTN, HLD, seizure dz who presented with worsening L knee pain. Patient was planned for total knee revision and had coumadin stopped 5 days prior to surgery with lovenox bridge but presented to ER for persistent pain and drainage. In ER he was found to have a L popliteal vein DVT and non specific mildy enlarged L inguinal LNs. Started on vanc/ceftriaxone and admitted for further management of prosthetic joint infection with removal on 11/18. Heme consulted for persistent L popliteal DVT. As per patient he was dx with a LE DVT in 2016 and has been on coumadin since. US from 2019 confirming Left popliteal DVT. He's never seen a vascular surgeon but denies any calf pain or tenderness, redness or swelling. 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 Cardio/Vascular: Yes: HTN, Hyperlipdemia - Alcohol/Substance Use Hx Alcohol Use: No - Smoking History Smoking history: Never smoked Have you smoked in the past 12 months: No - Social History Usual Living Arrangement: With Spouse Occupation: [employer] Home Medications - Allergies Allergies/Adverse Reactions: Allergies Allergy/AdvReac Type Severity Reaction Status Date / Time No Known Allergies Allergy Verified 11/11/19 16:05 - Home Medications Home Medications: Ambulatory Orders Phenytoin Sodium Extended 500 mg PO HS #90 capsule 07/15/18 Warfarin Na [Coumadin -] 3 mg PO HS 07/24/18 Amlodipine-Olmesartan 10-40 mg 1 tab PO DAILY 11/11/19 Enoxaparin [Lovenox -] 60 mg SQ Q12H 11/11/19 Finasteride [Proscar] 5 mg PO DAILY 11/11/19 Fluticasone/Vilanterol [Breo Ellipta 100-25 Mcg INH] 1 each IH HS 11/11/19 Hydrochlorothiazide [Hctz -] 12.5 mg PO DAILY 11/11/19 Metoprolol Succinate 50 mg PO DAILY 11/11/19 Tamsulosin HCl [Flomax] 0.4 mg PO DAILY 11/11/19 Tramadol HCl 50 mg PO TID 11/18/19 Family Medical History Family Hx Cancer: Mother (Unknown Type- age 60's) Other Family History: Father- MVA. Sister's- alive and healthy. Sons x3- alive and healthy Physical Exam Vital Signs: Vital Signs Temperature 97.8 F 11/19/19 11:18 Pulse Rate 116 H 11/19/19 11:18 Respiratory Rate 20 11/19/19 11:18 Blood Pressure 116/76 11/19/19 11:18 O2 Sat by Pulse Oximetry (%) 96 11/19/19 11:18 Constitutional: Yes: Well Nourished, Calm Eyes: Yes: Conjunctiva Clear, EOM Intact HENT: Yes: Atraumatic, Normocephalic Neck: Yes: Supple Cardiovascular: Yes: Regular Rate and Rhythm Respiratory: Yes: CTA Bilaterally Gastrointestinal: Yes: Normal Bowel Sounds Musculoskeletal: Yes: Joint Swelling, Other (left knee with brace in place, drains in place with serosanguinous drainage) Psychiatric: Yes: WNL, Alert Labs: CBC, BMP 11/19/19 08:05 11/19/19 08:25 Assessment/Plan 68y M with HTN, HLD, seizure disorder, LLE DVT since 2016 on coumadin presents for infected hardware in Left knee, found to have persistent LLE DVT (dx in 2016, last US 2018) Chronic DVT: no acute intervention needed at this time -would continue with anticoagulation and eventual bridge to warfarin as per Or tho surg -patient would benefit from outpatient vascular surgery for possible re- canalization of clot once infection has subsided
--- NOTE | 2019-11-19 13:14 | PN ---
Progress Note (short form) - Note Progress Note: This is a 68 year old male with PMH of L TKR (2019), DVT (on Warfarin, IVC filter), HTN, Seizures, and BPH. Pt was initially scheduled for L total knee replacement on 11/16, but was referred to the ER by Dr. Langston after he was foudn to have worsening L knee pain and discharge for the past few days. In anticipation for surgery, Warfarin was stopped 5 days ago, last injection of Lovenox was 11/16. He underwent I&D L knee, removal of infected left knee hardware, and placement of antibiotic spacer today and is being transferred to the ICU for monitoring. Pt's LLE dressing was soaked in blood. Dressing was removed and pt was found to be actively bleeding. Dr. Langston was contacted, who took him in to the OR overnight. Pt overnight hemoglobin stable, dec output from drain, and hemodynamically stable. Pt able to be transferred to [facility] [place]. PE: - General: AAOx3. No acute distress - Cardiac: No m/r/g Resp: CTA bilaterally Ext: Pt has left knee immobilizer and right leg has 2+ pulses. NO blood coming from drain Abd: nontender to palpation
[2019-11-19] MEDS: SENNOSIDES/DOCUSATE COMBO (SENNA PLUS) TABLET (UD) PO SCH ×2 (13:18→21:52)
[2019-11-19] MEDS ORDERED: MAG HYDROX/AL HYDROX/SIMETH 30 ML UNIT-DOSE CUP PO PRN (13:49)
[2019-11-19] MEDS ORDERED: MAGNESIUM HYDROX 2400MG/30ML ORAL SUSPENSION 30 ML CUP PO PRN (13:49)
--- NOTE | 2019-11-19 14:28 | PN ---
Progress Note (short form) - Note Progress Note: This is a 68 year old male with PMH of L TKR (2019), DVT (on Warfarin, IVC filter), HTN, Seizures, and BPH. Pt was initially scheduled for L total knee replacement on 11/16, but was referred to the ER by Dr. Langston after he was foudn to have worsening L knee pain and discharge for the past few days patient was also foud to have L popliteal vein DVT on US (chronic) Patient is now POD #1s/p I&D left knee, removal of infected left knee hardware, and placement of antibiotic spacer; no complaints as per patient he states his pain is well controlled with dilaudid SPINE SPECIALIST pump; he has not passed gas or had a BM yet; he denies any CP/SOB/N/V vitals:patient mildly tachycardic; normotensive gen: NAD; Aox3 CV: RRR s1 s2 no mrg Lungs: CTA B.l no rales, rhonchi or wheezing abd; soft; nt nd +BS extremities; L knee immobilizer in place; RLE warm; well-perfused no clubbing/cyaosis or edema patients Hgb was 10.5 this AM (dropped from 11.2 yesterday) will repeat CBC later this afternoon as patients dressing had been bleeding a lot overnight otherwise patient is stable for transfer to telemetry HTN c/w metoprolol/ HCTZ Seziures c/w dilantin Chronic DVT currently on ASA 81 BID; will get surg input as to when to resume couamdin heme-onc on board ID patient is on ancef f/u OR cultures ID on board BPH c/w flomax/finasteride Problem List - Problems (1) Infection of prosthetic left knee joint Code(s): T84.54XA - INFECT/INFLM REACTION DUE TO INTERNAL LEFT KNEE PROSTH, INIT (2) Left leg DVT Code(s): I82.402 - ACUTE EMBOLISM AND THOMBOS UNSP DEEP VEINS OF L LOW EXTREM (3) Post-operative complication Code(s): T81.9XXA - UNSPECIFIED COMPLICATION OF PROCEDURE, INITIAL ENCOUNTER (4) Anemia Code(s): D64.9 - ANEMIA, UNSPECIFIED (5) BPH (benign prostatic hyperplasia) Code(s): N40.0 - BENIGN PROSTATIC HYPERPLASIA WITHOUT LOWER URINRY TRACT SYMP (6) DVT (deep venous thrombosis) Code(s): I82.409 - ACUTE EMBOLISM AND THOMBOS UNSP DEEP VN UNSP LOWER EXTREMITY
--- NOTE | 2019-11-19 15:49 | PN ---
Progress Note (short form) - Note Progress Note: 68M POD1 s/p exploration L TKR under spinal and dilaudid IV DIETETIC INTERN. Pt states that pain is moderately well controlled at this time and is requesting to continue the DIETETIC INTERN. Will follow.
--- NOTE | 2019-11-19 15:57 | PN ---
Teaching Attending Note Name of Resident: Manny Mcgraw ATTENDING PHYSICIAN STATEMENT I saw and evaluated the patient. I reviewed the resident's note and discussed the case with the resident. I agree with the resident's findings and plan as documented. SUBJECTIVE: Pt seen and examined in the PACU. Drain output decreasing. H/H has been stable. Denies shortness of breath or chest pain. OBJECTIVE: Vital Signs Period Temp Pulse Resp BP Sys/Gee Pulse Ox Last 24 Hr 97.4 F-99.6 F 33-121 10-26 98-165/53-99 94-100 Intake & Output 11/16/19 11/17/19 11/18/19 11/19/19 23:59 23:59 23:59 23:59 Intake Total 3520 850 Output Total 3470 340 Balance 50 510 Weight 106.594 kg 107.139 kg Gen: NAD at rest Heart: RRR Lung: decreased breath sounds at the bases Abd: soft, nontender Ext: no edema CBC, BMP 11/19/19 08:05 11/19/19 08:25 Active Medications Al Hydroxide/Mg Hydroxide (Mylanta Oral Suspension -) 30 ml PO Q4H PRN PRN Reason: DYSPEPSIA Aspirin (Ecotrin -) 81 mg PO BID FERNANDA Budesonide/Formoterol Fumarate (Symbicort 80/4.5mcg -) 2 puff IH BID FERNANDA Finasteride (Proscar -) 5 mg PO DAILY FERNANDA Hydrochlorothiazide (Hctz -) 12.5 mg PO DAILY FERNANDA Hydromorphone HCl (Hydromorphone 10 Mg/50 Ml-Ns) 10 mg DISPLAY DIRECTOR DISPLAY DIRECTOR FERNANDA; Protocol Stop: 11/25/19 19:54 Cefazolin Sodium/Dextrose (Ancef 2 Gm Premixed Ivpb -) 2 gm in 50 mls @ 100 mls/hr IVPB Q6H FERNANDA Magnesium Hydroxide (Milk Of Magnesia -) 30 ml PO PRN PRN PRN Reason: CONSTIPATION Ondansetron HCl (Zofran Injection) 4 mg IVPUSH Q6H PRN PRN Reason: NAUSEA Pantoprazole Sodium (Protonix -) 40 mg PO DAILY FERNANDA Phenytoin Sodium (Dilantin -) 500 mg PO HS FERNANDA Senna/Docusate Sodium (Pericolace -) 2 tablet PO BID FERNANDA Tamsulosin HCl (Flomax -) 0.4 mg PO DAILY@0830 FERNANDA ASSESSMENT AND PLAN: Infected L Periprosthetic Knee Replacement s/p I&D Left Knee/Removal of Hardware/Placement of Antibiotic Spacer/Tibial Tubercle Osteotomy Acute Blood Loss Anemia h/o DVT Seizure Disorder HTN BPH - monitor H/H - transfuse as needed - monitor drain output - continue antibiotics - pain control - incentive spirometry - DVT prophylaxis - H/H stable, drain output decreased, pt hemodynamically stable, can monitor on floor
[2019-11-19] MEDS: HYDROmorphone *PCA* 10MG/50ML DISP.SYRIN PCA SCH ×2 (16:11→16:49)
[2019-11-19] MEDS: CEFAZOLIN 2 GM/D5W 2 GM/50 ML ML IVPB SCH (18:35)
[2019-11-19] MEDS: PHENYTOIN NA EXTENDED 100 MG CAPSULE (FP) PO SCH (21:51)
[2019-11-19] MEDS ORDERED: PHENYTOIN NA EXTENDED 100 MG CAPSULE (FP) PO SCH (22:00)
[2019-11-19] MEDS: BUDESONIDE/FORMETEROL FUMARATE 80/4.5 mcg INHALER IH SCH (23:12)
[2019-11-20] MEDS: CEFAZOLIN 2 GM/D5W 2 GM/50 ML ML IVPB SCH ×3 (01:00→11:18)
[2019-11-20 07:37] LABS: BASO % 0.3 % (0-2.0); EOS % 2.9 % (0-4.5); HEMATOCRIT 25.7 % (35.4-49); HEMOGLOBIN 8.5 GM/dL (11.7-16.9); LYMPH % 16.6 % (8-40); MCH 29.5 pg (25.7-33.7); MEAN CELL VOLUME 89.3 fl (80-96); MONO % 13.8 % (3.8-10.2); NEUT % 66.4 % (42.8-82.8); PLATELET COUNT 137 K/MM3 (134-434); RBC 2.88 M/mm3 (4.00-5.60); WHITE BLOOD COUNT 7.7 K/mm3 (4.0-10.0)
[2019-11-20 07:53] LABS: ALBUMIN 1.8 g/dl (3.4-5.0); BILIRUBIN,TOTAL 0.7 mg/dL (0.2-1); CALCIUM 7.4 mg/dL (8.5-10.1); CREATININE 1.1 mg/dL (0.55-1.3); MAGNESIUM 2.1 mg/dL (1.8-2.4); PHOSPHOROUS 2.6 mg/dL (2.5-4.9); POTASSIUM 3.9 mmol/L (3.5-5.1); TOT PROT 5.2 g/dl (6.4-8.2)
--- NOTE | 2019-11-20 08:18 | PN ---
Progress Note (short form) - Note Progress Note: Patient is a 68 y.o. M PMH of L TKR (2019), DVT (on Warfarin, IVC filter), HTN, Seizures, chronic left popliteal vein DVT and BPH. Prior to admission pt was scheduled for L TKR on 11/16 but was sent in earlier due to increasing L knee pain and drainage from L knee. Today patient is POD #2 s/p I&D left knee, removal L TKA hardware, placement left knee antibiotic spacer & tibial tubercle osteotomy by Dr. Jonathan Langston. Surgery was uncomplicated, EBL 50cc, ~2L crystalloids replaced. Patient's pain is well controlled with Dilaudid STOCK DRIER TENDER pump. L knee immobilizer is in place. Last Vital Signs Temp Pulse Resp BP Pulse Ox 98.6 F 113 H 20 143/78 96 11/20/19 10:00 11/20/19 14:53 11/20/19 14:53 11/20/19 14:53 11/20/19 14:53 Phys exam: Gen: AAOx3 in NAD Pulm: CTABL no w/r/r CV: S1S2 WNL, no m/r/g Abd: Soft NTND. +BS. Extr: L knee immoblizer in place, 2x drains draining serosanguinous fluid Neuro: Full sensation throughout. L knee immobilized but able to wiggle toes b/l LE. Motor strength 5/5 RLE, RUE & LUE. Plan: #L TKR -Cont ortho recs -pain control prn -Monitor drains x 2 outputs Pt has not had BM, not passing flatus. Denies abd pain/ nausea/ vomiting; will incr bowel regimen This patient is accepted for downgrade from ICU to med surg. He is hemodynamically stable.
[2019-11-20] MEDS: HYDROCHLOROTHIAZIDE 12.5 MG CAPSULE (FP) PO SCH (09:49)
[2019-11-20] MEDS: ASPIRIN COATED 81 MG TABLET.EC PO SCH ×2 (09:49→22:07)
[2019-11-20] MEDS: FINASTERIDE 5 MG TABLET (FP) PO SCH (09:49)
[2019-11-20] MEDS: BUDESONIDE/FORMETEROL FUMARATE 80/4.5 mcg INHALER IH SCH ×2 (09:50→22:09)
[2019-11-20] MEDS: SENNOSIDES/DOCUSATE COMBO (SENNA PLUS) TABLET (UD) PO SCH ×2 (09:50→22:08)
[2019-11-20] MEDS: PANTOPRAZOLE 40 MG TABLET PO SCH (09:50)
[2019-11-20] MEDS: TAMSULOSIN HCL 0.4 MG CAP PO SCH (09:50)
--- NOTE | 2019-11-20 11:10 | PN ---
Progress Note (short form) - Note Progress Note: Post op day#2.Patient stable and c/o pain score of 6-7/10 on movement.So will continue EP SPECIALIST today and will f/u tomorrow.
--- NOTE | 2019-11-20 12:30 | PN ---
Teaching Attending Note Name of Resident: Scarlett Burnette ATTENDING PHYSICIAN STATEMENT I saw and evaluated the patient. I reviewed the resident's note and discussed the case with the resident. I agree with the resident's findings and plan as documented. SUBJECTIVE: patient states he feels well, would like to keep dunham in place one more day OBJECTIVE: Vital Signs Period Temp Pulse Resp BP Sys/Gee Pulse Ox Last 24 Hr 97.4 F-99.7 F 98-121 20-20 111-126/61-71 93-98 GENERAL: Awake, alert, in no acute distress. HEAD: Normal with no signs of trauma. EYES: Pupils equal, round and reactive to light, extraocular movements intact, sclera anicteric, conjunctiva clear. EARS, NOSE, THROAT: Ears normal, nares patent, Moist mucous membranes. NECK: Normal range of motion, No JVD, LUNGS: Breath sounds equal, clear to auscultation bilaterally. No wheezes, and no crackles. No accessory muscle use. HEART: Regular rate and rhythm, normal S1 and S2 without murmur, rub or gallop. ABDOMEN: Soft, nontender, not distended, normoactive bowel sounds, no guarding, no rebound, +dunham MUSCULOSKELETAL: LLE Compression dressing noted with 2 drains EXTREMITIES: 2+ pulses, warm, well-perfused. No calf tenderness. No peripheral edema. NEUROLOGICAL: Cranial nerves II-XII intact. Normal speech. PSYCHIATRIC: Cooperative. Good eye contact. Appropriate mood and affect. SKIN: Warm, dry, normal turgor, no rashes or lesions noted. ASSESSMENT AND PLAN: 68 y/o male with a significant past medical history of L -TKR (last year), DVT (on Coumadin), IVC Filter, HTN, Hypercholesterolemia, GERD, Seizure Disorder, BPH, OA who presents with L Knee abscess with drainage. L Knee Abscess in setting of TKR s/p Explant of previous prosthetic, Abx spacer placed Appreciate Ortho Recs Ortho ordered 2 units PRBC for anemia given drainage wound drains noted Continue IV Abx at this time, Blood Cx did not show any growth at this time, can consider deescalating at this time Hx of DVT on Coumadin US with DVT noted on this admission Unclear if patient has IVC filter as patient states he does not ever recall having an IVC filter Check Abd XR at this time Would prefer to restart AC when patient is cleared by Ortho to restart AC Concern for SBO: _patient reports not passing stool or gas sicne the procedure Able to tolerate PO intake Patient also noted to be on opiate pain medication will initiate bowel regimen, continue to monitor for signs of SBO Hx of Seizure disroder Continue Dilantin
--- NOTE | 2019-11-20 13:25 | PN ---
Progress Note, Physician History of Present Illness: stable post op no new issues - Current Medication List Current Medications: Active Medications Al Hydroxide/Mg Hydroxide (Mylanta Oral Suspension -) 30 ml PO Q4H PRN PRN Reason: DYSPEPSIA Aspirin (Ecotrin -) 81 mg PO BID [facility] Last Admin: 11/20/19 09:49 Dose: 81 mg Documented by: Budesonide/Formoterol Fumarate (Symbicort 80/4.5mcg -) 2 puff IH BID [facility] Last Admin: 11/20/19 09:50 Dose: 2 puff Documented by: Finasteride (Proscar -) 5 mg PO DAILY [facility] Last Admin: 11/20/19 09:49 Dose: 5 mg Documented by: Hydrochlorothiazide (Hctz -) 12.5 mg PO DAILY [facility] Last Admin: 11/20/19 09:49 Dose: 12.5 mg Documented by: Hydromorphone HCl (Hydromorphone 10 Mg/50 Ml-Ns) 10 mg SERVICE GREETER SERVICE GREETER [facility]; Protocol Stop: 11/25/19 19:54 Last Admin: 11/19/19 16:49 Dose: 10 mg Documented by: Cefazolin Sodium/Dextrose (Ancef 2 Gm Premixed Ivpb -) 2 gm in 50 mls @ 100 mls/hr IVPB Q6H [facility] Last Admin: 11/20/19 11:18 Dose: 100 mls/hr Documented by: Magnesium Hydroxide (Milk Of Magnesia -) 30 ml PO PRN PRN PRN Reason: CONSTIPATION Ondansetron HCl (Zofran Injection) 4 mg IVPUSH Q6H PRN PRN Reason: NAUSEA Pantoprazole Sodium (Protonix -) 40 mg PO DAILY [facility] Last Admin: 11/20/19 09:50 Dose: 40 mg Documented by: Phenytoin Sodium (Dilantin -) 500 mg PO HS [facility] Last Admin: 11/19/19 21:51 Dose: 500 mg Documented by: Senna/Docusate Sodium (Pericolace -) 2 tablet PO BID [facility] Last Admin: 11/20/19 09:50 Dose: 2 tablet Documented by: Tamsulosin HCl (Flomax -) 0.4 mg PO DAILY@0830 [facility] Last Admin: 11/20/19 09:50 Dose: 0.4 mg Documented by: - Objective Vital Signs: Vital Signs Temperature 98.6 F 11/20/19 10:00 Pulse Rate 98 H 11/20/19 12:49 Respiratory Rate 20 11/20/19 12:49 Blood Pressure 113/64 11/20/19 12:49 O2 Sat by Pulse Oximetry (%) 94 L 11/20/19 12:49 Constitutional: Yes: Calm, Mild Distress, Obese Cardiovascular: Yes: S1, S2 Respiratory: Yes: Regular, CTA Bilaterally Gastrointestinal: Yes: Normal Bowel Sounds, Soft Musculoskeletal: Yes: WNL Extremities: Yes: Other Wound/Incision: Yes: Dressing Dry and Intact, Other (nhi drains i place) Neurological: Yes: Alert, Oriented Labs: CBC, BMP 11/20/19 07:01 11/20/19 07:01 INR, PTT INR 1.19 (0.83-1.09) H 11/17/19 23:20 Assessment/Plan Problem List - Problems (1) Infection of prosthetic left knee joint Code(s): T84.54XA - INFECT/INFLM REACTION DUE TO INTERNAL LEFT KNEE PROSTH, INIT (2) Left leg DVT Code(s): I82.402 - ACUTE EMBOLISM AND THOMBOS UNSP DEEP VEINS OF L LOW EXTREM (3) Post-operative complication Code(s): T81.9XXA - UNSPECIFIED COMPLICATION OF PROCEDURE, INITIAL ENCOUNTER (4) Anemia Code(s): D64.9 - ANEMIA, UNSPECIFIED (5) BPH (benign prostatic hyperplasia) Code(s): N40.0 - BENIGN PROSTATIC HYPERPLASIA WITHOUT LOWER URINRY TRACT SYMP (6) DVT (deep venous thrombosis) Code(s): I82.409 - ACUTE EMBOLISM AND THOMBOS UNSP DEEP VN UNSP LOWER EXTREMITY wound infection plan continue abx stable monitor drainage rest as per surgery
--- NOTE | 2019-11-20 13:28 | PN ---
Progress Note, Physician History of Present Illness: stable no new issues - Current Medication List Current Medications: Active Medications Al Hydroxide/Mg Hydroxide (Mylanta Oral Suspension -) 30 ml PO Q4H PRN PRN Reason: DYSPEPSIA Aspirin (Ecotrin -) 81 mg PO BID [facility] Last Admin: 11/20/19 09:49 Dose: 81 mg Documented by: Budesonide/Formoterol Fumarate (Symbicort 80/4.5mcg -) 2 puff IH BID [facility] Last Admin: 11/20/19 09:50 Dose: 2 puff Documented by: Finasteride (Proscar -) 5 mg PO DAILY [facility] Last Admin: 11/20/19 09:49 Dose: 5 mg Documented by: Hydrochlorothiazide (Hctz -) 12.5 mg PO DAILY [facility] Last Admin: 11/20/19 09:49 Dose: 12.5 mg Documented by: Hydromorphone HCl (Hydromorphone 10 Mg/50 Ml-Ns) 10 mg [facility]; Protocol Stop: 11/25/19 19:54 Last Admin: 11/19/19 16:49 Dose: 10 mg Documented by: Cefazolin Sodium/Dextrose (Ancef 2 Gm Premixed Ivpb -) 2 gm in 50 mls @ 100 mls/hr IVPB Q6H [facility] Last Admin: 11/20/19 11:18 Dose: 100 mls/hr Documented by: Magnesium Hydroxide (Milk Of Magnesia -) 30 ml PO PRN PRN PRN Reason: CONSTIPATION Ondansetron HCl (Zofran Injection) 4 mg IVPUSH Q6H PRN PRN Reason: NAUSEA Pantoprazole Sodium (Protonix -) 40 mg PO DAILY [facility] Last Admin: 11/20/19 09:50 Dose: 40 mg Documented by: Phenytoin Sodium (Dilantin -) 500 mg PO HS [facility] Last Admin: 11/19/19 21:51 Dose: 500 mg Documented by: Senna/Docusate Sodium (Pericolace -) 2 tablet PO BID [facility] Last Admin: 11/20/19 09:50 Dose: 2 tablet Documented by: Tamsulosin HCl (Flomax -) 0.4 mg PO DAILY@0830 [facility] Last Admin: 11/20/19 09:50 Dose: 0.4 mg Documented by: - Objective Vital Signs: Vital Signs Temperature 98.6 F 11/20/19 10:00 Pulse Rate 98 H 11/20/19 12:49 Respiratory Rate 20 11/20/19 12:49 Blood Pressure 113/64 11/20/19 12:49 O2 Sat by Pulse Oximetry (%) 94 L 11/20/19 12:49 Constitutional: Yes: Calm, Mild Distress Cardiovascular: Yes: S1, S2 Respiratory: Yes: Regular, CTA Bilaterally Gastrointestinal: Yes: Normal Bowel Sounds, Soft Musculoskeletal: Yes: WNL Extremities: Yes: Other Wound/Incision: Yes: Dressing Dry and Intact Neurological: Yes: Alert, Oriented Psychiatric: Yes: Alert, Oriented Labs: CBC, BMP 11/20/19 07:01 11/20/19 07:01 INR, PTT INR 1.19 (0.83-1.09) H 11/17/19 23:20 Assessment/Plan Problem List - Problems (1) Infection of prosthetic left knee joint Code(s): T84.54XA - INFECT/INFLM REACTION DUE TO INTERNAL LEFT KNEE PROSTH, INIT (2) Left leg DVT Code(s): I82.402 - ACUTE EMBOLISM AND THOMBOS UNSP DEEP VEINS OF L LOW EXTREM (3) Post-operative complication Code(s): T81.9XXA - UNSPECIFIED COMPLICATION OF PROCEDURE, INITIAL ENCOUNTER (4) Anemia Code(s): D64.9 - ANEMIA, UNSPECIFIED (5) BPH (benign prostatic hyperplasia) Code(s): N40.0 - BENIGN PROSTATIC HYPERPLASIA WITHOUT LOWER URINRY TRACT SYMP (6) DVT (deep venous thrombosis) Code(s): I82.409 - ACUTE EMBOLISM AND THOMBOS UNSP DEEP VN UNSP LOWER EXTREMITY wound infection plan continue abx will change abx to zosyn
--- NOTE | 2019-11-20 13:39 | PATH ---
Surgical Pathology Report Patient Name: ARIAN OCAMPO Med. Rec. #: [id number] /Age/Gender: 1950 (Age: 68) / M Account: [id number] Location: 4 W TELEMETRY U Taken: 11/18/2019 Received: 11/19/2019 Reported: 11/20/2019 Physicians: Hilario Langston M.D. Specimen(s) Received A: EXPLANTS HARDWARE LEFT KNEE B: DEBRIDED TISSUE LEFT KNEE ABSCESS MARGIN Clinical History Infected left knee Final Diagnosis A. EXPLANTS HARDWARE, KNEE, LEFT, REMOVAL: SURGICAL HARDWARE. MACROSCOPIC DIAGNOSIS. B. KNEE ABSCESS, MARGIN, LEFT, DEBRIDEMENT: FIBROSYNOVIAL TISSUE AND BONE WITH MARKED ACUTE AND CHRONIC INFLAMMATION, INCLUDING RARE GIANT CELL REACTION, HEMOSIDERIN DEPOSITION, OLD AND NEW HEMORRHAGE, AND REACTIVE CHANGES. Electronically Signed Janet Gross M.D. Gross Description A. Received fresh labeled "explant left knee," are 6 [place] metallic and white plastic foreign bodies ranging from 1.5-8.0 cm in greatest dimension, consistent with knee explants. No soft tissue is present. No sections are submitted, gross only. B. Received in formalin labeled "left knee abscess," is a 9.5 x 9.0 x 2.5 cm aggregate of step[place]cor[place] soft tissue fragments. [place] Operator sections are submitted in 2 cassettes. DL/11/19/2019 saudi/11/19/2019
[2019-11-20] MEDS ORDERED: DEXTROSE 5%-WATER - 50 ML IVPB ONE ×2 (14:38→17:16)
[2019-11-20] MEDS ORDERED: PIPERACILLIN/TAZOBACTAM 3.375 GM VIAL IVPB ONE ×2 (14:38→17:16)
[2019-11-20] MEDS: PIPERACILLIN/TAZOB 3.375 GM 3.375 GM in DEXTROSE 5%-WATER - 50 ML IVPB SCH ×2 (14:49→17:40)
[2019-11-20] MEDS: HYDROmorphone *PCA* 10MG/50ML DISP.SYRIN PCA SCH (14:53)
--- NOTE | 2019-11-20 14:54 | PN ---
Progress Note (short form) - Note Progress Note: Surgery POD #2 1. I&D left knee. 2. Removal L TKA hardware. 3. Placement left knee antibiotic spacer. 4. Tibial tubercle osteotomy Patient seen and examined on AM rounds c/o pain controlled by TURNING SANDER TENDER. His dunham is still in place, and he is tolerating his diet. He denies any CP, SOB, N/V, fever or chills. Vital Signs Temp 98.6 F 11/20/19 10:00 Pulse 113 H 11/20/19 14:53 Resp 20 11/20/19 14:53 BP 143/78 11/20/19 14:53 Pulse Ox 96 11/20/19 14:53 Intake & Output 11/19/19 11/20/19 11/20/19 23:59 11:59 23:59 Intake Total 100 Output Total 670 310 Balance -670 -210 Intake: IVPB 100 Output: Drainage 170 60 Left Knee 150 60 lt #2 20 Urine 500 250 Void 500 250 Other: Voiding Method Indwelling Catheter Indwelling Catheter Bowel Movement No No CBC, BMP 11/20/19 07:01 Abnormal Lab Results 11/17/19 11/20/19 11/20/19 23:20 07:01 07:01 RBC 2.88 L Hgb 8.5 L Hct 25.7 L D Monocytes % 13.8 H Anion Gap 5 L BUN 21.0 H Random Glucose 111 H Calcium 7.4 L AST 58 H Alkaline Phosphatase 127 H Total Protein 5.2 L Albumin 1.8 L Crossmatch See Detail Microbiology 11/17/19 23:20 Knee - Left Gram Stain - Final 11/17/19 23:20 Knee - Left Wound Culture - Final Serratia Marcescens Enterococcus Faecalis Proteus Mirabilis 11/18/19 18:31 Tissue-Other AFB Smear Concentration - Preliminary 11/18/19 18:31 Tissue-Other Mycobacterial Culture - Preliminary 11/18/19 16:37 Knee - Left Gram Stain - Final 11/18/19 16:37 Knee - Left Wound Culture - Preliminary Proteus Species Non Lactose Fermenting Gnb 11/18/19 18:31 Tissue-Other Gram Stain - Final 11/18/19 18:31 Tissue-Other Tissue Culture - Preliminary Non Lactose Fermenting Gnb 11/18/19 19:51 Urine - Urine - Catheterized Urine Culture - Final NO GROWTH OBTAINED 11/17/19 23:20 Blood - Peripheral Venous Blood Culture - Preliminary NO GROWTH OBTAINED AFTER 48 HOURS, INCUBATION TO CONTINUE FOR 3 DAYS. 11/17/19 23:20 Blood - Peripheral Venous Blood Culture - Preliminary NO GROWTH OBTAINED AFTER 48 HOURS, INCUBATION TO CONTINUE FOR 3 DAYS. 11/18/19 18:31 Tissue-Other LIDIA Preparation - Preliminary 11/18/19 18:31 Tissue-Other Fungal Culture - Preliminary 11/18/19 16:37 Knee - Left LIDIA Preparation - Preliminary 11/18/19 16:37 Knee - Left Fungal Culture - Preliminary 11/18/19 16:37 Knee - Left AFB Smear Concentration - Preliminary 11/18/19 16:37 Knee - Left Mycobacterial Culture - Preliminary PE: A&Ox3, NAD Unlabored resp on RA Left LE immobilizer opened-compressive wrap in place with clean dry dressing, no evidence of active bleeding or d/c. Diffuse edema throughout with soft thigh and tender calf as expected. Foot and toes warm and well perfused with +2 dp pulse. + dorsi/plantar flexion. Drains x2 secure and draining well. Problem List - Problems (1) Infection of prosthetic left knee joint Assessment/Plan: A/P: 68 yo male POD #2 s/p I&D left knee. Removal L TKA hardware. Placement left knee antibiotic spacer. Tibial tubercle osteotomy. Prosthetic joint infection with acute blood loss anemia, asymptomatic. -Transfuse PRBC 2 units ordered. - Trend daily labs -Elevate Left LE while in bed - Maintain compression dressing -Pain control: as per anesthesia team still on TURNING SANDER TENDER. -DVT PPx: -hematology reviewed and appreciated- chronic L popliteal vein DVT with no acute intervention-follow up with vascular as outpatient. -Chemical: Lovenox, Warfarin: bridge to therapeutic INR (2-3)-discussed with Medicine -Mechanical: BARB's, SCD's. -Incentive spirometry q15 min. -PT/OT/Rehab, OOB. -Strict NWB RLE. -Post-op antibiotics: Ancef 2g IV until intra-op specimen speciation is completed and antibiotic sensitivities have resulted. -Maintain dunham catheter 24-48 hours post-op to ensure I's & O's are balance (transfusion) -f/u drains output. -Diet as tolerated. -Care per medical hospitalist, hematology Evaluation and plan discussed with Dr Hilario Langston Code(s): T84.54XA - INFECT/INFLM REACTION DUE TO INTERNAL LEFT KNEE PROSTH, INIT (2) Left leg DVT Code(s): I82.402 - ACUTE EMBOLISM AND THOMBOS UNSP DEEP VEINS OF L LOW EXTREM (3) Wound dehiscence Code(s): T81.30XA - DISRUPTION OF WOUND, UNSPECIFIED, INITIAL ENCOUNTER
[2019-11-20 15:16] LABS: ALBUMIN 1.8 g/dl (3.4-5.0); BILIRUBIN,TOTAL 0.8 mg/dL (0.2-1); BLOOD UREA NITROGEN 19.4 mg/dL (7-18); CALCIUM 7.4 mg/dL (8.5-10.1); POTASSIUM 3.9 mmol/L (3.5-5.1); TOT PROT 5.5 g/dl (6.4-8.2)
--- NOTE | 2019-11-20 15:26 | PN ---
Physical Exam: SUBJECTIVE: Patient seen and examined. Pt is POD #2 of I&D left knee, removal L TKA hardware, placement left knee antibiotic spacer, tibial tubercle osteotomy. Upon my evaluation, pt stated pain was 6/10, improved from previously. Pt denied fevers, chills ,shortness of breath, abdominal pain, numbness or tingling. Pt denied having passed flatus or having bowel movement since the procedure, however, endorsed to good appetite. OBJECTIVE: Vital Signs Period Temp Pulse Resp BP Sys/Gee Pulse Ox Last 24 Hr 97.8 F-99.7 F 98-121 20-20 111-143/61-78 93-98 GENERAL: AAOx3, not in acute distress HEENT: NCAT, EOMI, moist mucus membranes. CARDIAC: regular rate and rhythm. S1, S2 present. No murmurs. RESPIRATORY: CTA b/l, no wheezes. ABDOMEN: Obese, non-distended, non-tender to palpation. EXTREMITIES: LLE bandaged and immobilized. 2 drains visible next to leg. Draining serosanguinous fluid. SKIN: Warm, dry. NEUROLOGICAL: Sensation and movement intact. Moves toes spontaneously. Laboratory Last Values WBC 7.7 K/mm3 (4.0-10.0) 11/20/19 07:01 RBC 2.88 M/mm3 (4.00-5.60) L 11/20/19 07:01 Hgb 8.5 GM/dL (11.7-16.9) L 11/20/19 07:01 Hct 25.7 % (35.4-49) L D 11/20/19 07:01 MCV 89.3 fl (80-96) 11/20/19 07:01 MCH 29.5 pg (25.7-33.7) 11/20/19 07:01 MCHC 33.0 g/dl (32.0-35.9) 11/20/19 07:01 RDW 15.0 % (11.9-15.9) 11/20/19 07:01 Plt Count 137 K/MM3 (134-434) 11/20/19 07:01 MPV 8.0 fl (7.5-11.1) 11/20/19 07:01 Absolute Neuts (auto) 5.1 K/mm3 (1.5-8.0) 11/20/19 07:01 Neutrophils % 66.4 % (42.8-82.8) D 11/20/19 07:01 Lymphocytes % 16.6 % (8-40) D 11/20/19 07:01 Monocytes % 13.8 % (3.8-10.2) H 11/20/19 07:01 Eosinophils % 2.9 % (0-4.5) D 11/20/19 07:01 Basophils % 0.3 % (0-2.0) 11/20/19 07:01 Nucleated RBC % 0 % (0-0) 11/20/19 07:01 PT with INR 14.10 SEC (9.7-13.0) H 11/17/19 23:20 INR 1.19 (0.83-1.09) H 11/17/19 23:20 PTT (Actin FS) 27.0 SECONDS (25.2-36.5) 11/19/19 05:30 Sodium 139 mmol/L (136-145) 11/20/19 13:50 Potassium 3.9 mmol/L (3.5-5.1) 11/20/19 13:50 Chloride 103 mmol/L (98-107) 11/20/19 13:50 Carbon Dioxide 31 mmol/L (21-32) 11/20/19 13:50 Anion Gap 5 MMOL/L (8-16) L 11/20/19 13:50 BUN 19.4 mg/dL (7-18) H 11/20/19 13:50 Creatinine 1.0 mg/dL (0.55-1.3) 11/20/19 13:50 Est GFR (CKD-EPI)AfAm 87.99 11/20/19 13:50 Est GFR (CKD-EPI)NonAf 75.92 11/20/19 13:50 POC Glucometer 212 UNITS (80-120) 11/19/19 17:17 Random Glucose 150 mg/dL (74-106) H 11/20/19 13:50 Lactic Acid 0.9 mmol/L (0.4-2.0) 11/17/19 21:50 Calcium 7.4 mg/dL (8.5-10.1) L 11/20/19 13:50 Phosphorus 2.6 mg/dL (2.5-4.9) 11/20/19 07:01 Magnesium 2.1 mg/dL (1.8-2.4) 11/20/19 07:01 Total Bilirubin 0.8 mg/dL (0.2-1) 11/20/19 13:50 AST 64 U/L (15-37) H 11/20/19 13:50 ALT 25 U/L (13-61) 11/20/19 13:50 Alkaline Phosphatase 132 U/L (45-117) H 11/20/19 13:50 Total Protein 5.5 g/dl (6.4-8.2) L 11/20/19 13:50 Albumin 1.8 g/dl (3.4-5.0) L 11/20/19 13:50 Vancomycin Pre-Dose 11.5 ug/ml (5-10) H 11/18/19 12:30 Phenytoin 14.9 11/18/19 12:30 COVID-19 ([facility]YSTAL) Not detected (Not Detected) 11/17/19 23:50 Blood Type A POSITIVE 11/17/19 23:20 Antibody Screen Negative 11/17/19 23:20 Crossmatch See Detail 11/17/19 23:20 Active Medications Acetaminophen (Tylenol -) 650 mg PO Q6H PRN PRN Reason: Fever Or Pain Last Admin: 11/20/19 20:16 Dose: 650 mg Documented by: Al Hydroxide/Mg Hydroxide (Mylanta Oral Suspension -) 30 ml PO Q4H PRN PRN Reason: DYSPEPSIA Aspirin (Ecotrin -) 81 mg PO BID [facility] Last Admin: 11/20/19 09:49 Dose: 81 mg Documented by: Budesonide/Formoterol Fumarate (Symbicort 80/4.5mcg -) 2 puff IH BID [facility] Last Admin: 11/20/19 09:50 Dose: 2 puff Documented by: Enoxaparin Sodium (Lovenox -) 100 mg SQ BID [facility] Finasteride (Proscar -) 5 mg PO DAILY [facility] Last Admin: 11/20/19 09:49 Dose: 5 mg Documented by: Hydrochlorothiazide (Hctz -) 12.5 mg PO DAILY [facility] Last Admin: 11/20/19 09:49 Dose: 12.5 mg Documented by: Hydromorphone HCl (Hydromorphone 10 Mg/50 Ml-Ns) 10 mg CYLINDER CHECKER CYLINDER CHECKER [facility]; Protocol Stop: 11/25/19 19:54 Last Admin: 11/20/19 14:53 Dose: 10 mg Documented by: Piperacillin Sod/Tazobactam (Sod 3.375 gm/ Dextrose) 50 mls @ 100 mls/hr IVPB Q8H-IV [facility]; Protocol Last Admin: 11/20/19 17:40 Dose: 100 mls/hr Documented by: Magnesium Hydroxide (Milk Of Magnesia -) 30 ml PO PRN PRN PRN Reason: CONSTIPATION Ondansetron HCl (Zofran Injection) 4 mg IVPUSH Q6H PRN PRN Reason: NAUSEA Pantoprazole Sodium (Protonix -) 40 mg PO DAILY [facility] Last Admin: 11/20/19 09:50 Dose: 40 mg Documented by: Phenytoin Sodium (Dilantin -) 500 mg PO HS [facility] Last Admin: 11/19/19 21:51 Dose: 500 mg Documented by: Senna/Docusate Sodium (Pericolace -) 2 tablet PO BID [facility] Last Admin: 11/20/19 09:50 Dose: 2 tablet Documented by: Tamsulosin HCl (Flomax -) 0.4 mg PO DAILY@0830 [facility] Last Admin: 11/20/19 09:50 Dose: 0.4 mg Documented by: Warfarin Sodium (Coumadin -) 5 mg PO DAILY@1800 [facility] Stop: 11/22/19 23:59 Last Admin: 11/20/19 17:39 Dose: 5 mg Documented by: Warfarin Sodium (Coumadin -) 2.5 mg PO DAILY@1800 [facility] ASSESSMENT/PLAN: 68 year old M PMH L TKR 2019, DVT 2017 (on coumadin s/p IVC filter), HTN, hypercholesterolemia, GERD, seizure disorder, BPH, OA who presented with worsening L knee pain and swelling with drainage for several weeks. Pt admitted for infected L knee. L infected periprosthetic knee - Pt is for OR with Dr. Langston for I&D left knee, removal L TKA hardware, placement left knee antibiotic spacer, tibial tubercle osteotomy - Monitor drain output, I/O's - Pending blood culture and wound culture - Encourage incentive spirometry q15 min. -PT/OT/Rehab, OOB. Strict non-weight bearing - Ancef 2g IV intraoperatively - Pain control w/ CYLINDER CHECKER - c/w bowel regimen Seizure disorder -c/w dilantin 250 BID H/o DVT - Duplex lower extremity shows L popliteal vein DVT that is old, but persistent - Consider heme/onc consult. HTN, Hypercholesterolemia - c/w home amlodipine-olmesartan 10-40mg qD, ASA 81, HCTZ 12.5 qD, metoprolol 50mg qD BPH -c/w home tamsulosin, finasteride FEN - D5- 1/2ns @ 100 -Monitor and replete electrolytes -Diet as tolerated Ppx - DVT: Lovenox - GI: PPI Dispo: monitor on med-surg Visit type - Emergency Visit Emergency Visit: Yes ED Registration Date: 11/17/19 Care time: The patient presented to the Emergency Department on the above date and was hospitalized for further evaluation of their emergent condition. - New Patient This patient is new to me today: No - Critical Care Critical Care patient: No - Medication Review Med list reviewed for High Risk Meds patients 65 and older: Yes ATTENDING PHYSICIAN STATEMENT I saw and evaluated the patient. I reviewed the resident's note and discussed the case with the resident. I agree with the resident's findings and plan as documented. SUBJECTIVE: OBJECTIVE: ASSESSMENT AND PLAN:
[2019-11-20] MEDS: WARFARIN NA 5 MG TABLET PO SCH (17:39)
--- NOTE | 2019-11-20 19:06 | PN ---
Progress Note (short form) - Note Progress Note: POD#2 Explant TKR Debridement PMMA antibiotic impregnated cement in between the bony ends Rods of cement in femur and tibia. General medical status as per chart. Looks well. Feels better. Apyrexial Minimal discomfor Splint in situ No NVD Drains in situ PLAN for pic line next week Continue current antibiotic Pain MX Consult Dr Bangura ID
[2019-11-20] MEDS: ACETAMINOPHEN 325 MG TABLET (FP) PO PRN (20:16)
[2019-11-20] MEDS: ENOXAPARIN NA (PORCINE) 100 MG/1 ML DISP.SYRIN SQ SCH (22:08)
[2019-11-20] MEDS: PHENYTOIN NA EXTENDED 100 MG CAPSULE (FP) PO SCH (22:08)
[2019-11-21] MEDS ORDERED: PIPERACILLIN/TAZOBACTAM 3.375 GM VIAL IVPB ONE ×3 (01:12→16:39)
[2019-11-21] MEDS ORDERED: DEXTROSE 5%-WATER - 50 ML IVPB ONE ×3 (01:13→16:39)
[2019-11-21] MEDS: PIPERACILLIN/TAZOB 3.375 GM 3.375 GM in DEXTROSE 5%-WATER - 50 ML IVPB SCH ×3 (02:11→17:10)
--- NOTE | 2019-11-21 06:10 | PN.HO ---
Progress Note (short form) - Note Progress Note: PAtient seen and examined Feels OK Last Vital Signs Temp Pulse Resp BP Pulse Ox 98 F 96 H 20 132/73 98 11/21/19 14:00 11/21/19 14:00 11/21/19 14:00 11/21/19 14:00 11/21/19 12:14 Cor: RSR, No murmurs, No gallops Lungs: Clear to P&A Abd: Soft, Normal bowel sounds, No organomegaly Musculoskeletal: Yes: Joint Swelling, Other (left knee with brace in place, drains in place with serosanguinous drainage) Labs/Meds reviewed A/P 68y M with HTN, HLD, seizure disorder, LLE DVT since 2016 on coumadin presents for infected hardware in Left knee, found to have persistent LLE DVT (dx in 2016, last US 2019) Chronic DVT: -would continue with anticoagulation and eventual bridge to warfarin as per Ortho surg
[2019-11-21 07:57] LABS: BASO % 0.4 % (0-2.0); EOS % 1.9 % (0-4.5); HEMATOCRIT 22.5 % (35.4-49); HEMOGLOBIN 7.6 GM/dL (11.7-16.9); LYMPH % 11.8 % (8-40); MCH 30.5 pg (25.7-33.7); MCHC 33.7 g/dl (32.0-35.9); MEAN CELL VOLUME 90.5 fl (80-96); MEAN PLT VOLUME 8.6 fl (7.5-11.1); MONO % 10.1 % (3.8-10.2); NEUT % 75.8 % (42.8-82.8); PLATELET COUNT 114 K/MM3 (134-434); RBC 2.49 M/mm3 (4.00-5.60); RDW 14.6 % (11.9-15.9); WHITE BLOOD COUNT 7.6 K/mm3 (4.0-10.0)
[2019-11-21 08:00] LABS: BLOOD UREA NITROGEN 15.5 mg/dL (7-18); CALCIUM 7.5 mg/dL (8.5-10.1); CREATININE 0.8 mg/dL (0.55-1.3); POTASSIUM 3.8 mmol/L (3.5-5.1)
[2019-11-21 08:18] LABS: PH,URINE 5.5 (5.0-8.0); URINE APPEARANCE CLEAR; URINE BILIRUBIN NEGATIVE (NEGATIVE); URINE COLOR YELLOW; URINE GLUCOSE (UA) NEGATIVE (NEGATIVE); URINE KETONE NEGATIVE (NEGATIVE); URINE LEUK ESTERASE NEGATIVE (NEGATIVE); URINE NITRITE NEGATIVE (NEGATIVE); URINE PROTEIN NEGATIVE (NEGATIVE)
[2019-11-21] MEDS: TAMSULOSIN HCL 0.4 MG CAP PO SCH (09:15)
[2019-11-21] MEDS: HYDROCHLOROTHIAZIDE 12.5 MG CAPSULE (FP) PO SCH (09:15)
[2019-11-21] MEDS: PANTOPRAZOLE 40 MG TABLET PO SCH (09:15)
[2019-11-21] MEDS: FINASTERIDE 5 MG TABLET (FP) PO SCH (09:15)
[2019-11-21] MEDS: SENNOSIDES/DOCUSATE COMBO (SENNA PLUS) TABLET (UD) PO SCH (09:15)
[2019-11-21] MEDS: BUDESONIDE/FORMETEROL FUMARATE 80/4.5 mcg INHALER IH SCH ×2 (09:16→22:00)
[2019-11-21] MEDS ORDERED: PT OWN MED DRAWER 7, Y5N ONE (11:03)
[2019-11-21] MEDS: ASPIRIN COATED 81 MG TABLET.EC PO SCH ×2 (11:08→21:47)
[2019-11-21] MEDS: ENOXAPARIN NA (PORCINE) 100 MG/1 ML DISP.SYRIN SQ SCH ×2 (11:09→21:46)
--- NOTE | 2019-11-21 12:19 | PN ---
Progress Note, Physician History of Present Illness: stable no new issues drop in h and h receiving 2 units of blood - Current Medication List Current Medications: Active Medications Acetaminophen (Tylenol -) 650 mg PO Q6H PRN PRN Reason: Fever Or Pain Last Admin: 11/20/19 20:16 Dose: 650 mg Documented by: Al Hydroxide/Mg Hydroxide (Mylanta Oral Suspension -) 30 ml PO Q4H PRN PRN Reason: DYSPEPSIA Aspirin (Ecotrin -) 81 mg PO BID [facility] Last Admin: 11/21/19 11:08 Dose: Not Given Documented by: Budesonide/Formoterol Fumarate (Symbicort 80/4.5mcg -) 2 puff IH BID [facility] Last Admin: 11/21/19 09:16 Dose: 2 puff Documented by: Enoxaparin Sodium (Lovenox -) 100 mg SQ BID [facility] Last Admin: 11/21/19 11:09 Dose: 100 mg Documented by: Finasteride (Proscar -) 5 mg PO DAILY [facility] Last Admin: 11/21/19 09:15 Dose: 5 mg Documented by: Hydrochlorothiazide (Hctz -) 12.5 mg PO DAILY [facility] Last Admin: 11/21/19 09:15 Dose: 12.5 mg Documented by: Hydromorphone HCl (Hydromorphone 10 Mg/50 Ml-Ns) 10 mg IT INFRASTRUCTURE SPECIALIST IT INFRASTRUCTURE SPECIALIST [facility]; Protocol Stop: 11/25/19 19:54 Last Admin: 11/20/19 14:53 Dose: 10 mg Documented by: Piperacillin Sod/Tazobactam (Sod 3.375 gm/ Dextrose) 50 mls @ 100 mls/hr IVPB Q8H-IV [facility]; Protocol Last Admin: 11/21/19 09:16 Dose: 100 mls/hr Documented by: Magnesium Hydroxide (Milk Of Magnesia -) 30 ml PO PRN PRN PRN Reason: CONSTIPATION Ondansetron HCl (Zofran Injection) 4 mg IVPUSH Q6H PRN PRN Reason: NAUSEA Pantoprazole Sodium (Protonix -) 40 mg PO DAILY [facility] Last Admin: 11/21/19 09:15 Dose: 40 mg Documented by: Phenytoin Sodium (Dilantin -) 500 mg PO HS [facility] Last Admin: 11/20/19 22:08 Dose: 500 mg Documented by: Senna/Docusate Sodium (Pericolace -) 2 tablet PO BID [facility] Last Admin: 11/21/19 09:15 Dose: Not Given Documented by: Tamsulosin HCl (Flomax -) 0.4 mg PO DAILY@0830 [facility] Last Admin: 11/21/19 09:15 Dose: 0.4 mg Documented by: Warfarin Sodium (Coumadin -) 5 mg PO DAILY@1800 [facility] Stop: 11/22/19 23:59 Last Admin: 11/20/19 17:39 Dose: 5 mg Documented by: Warfarin Sodium (Coumadin -) 2.5 mg PO DAILY@1800 [facility] - Objective Vital Signs: Vital Signs Temperature 98.7 F 11/21/19 12:14 Pulse Rate 98 H 11/21/19 12:14 Respiratory Rate 20 11/21/19 12:14 Blood Pressure 135/74 11/21/19 12:14 O2 Sat by Pulse Oximetry (%) 98 11/21/19 12:14 Constitutional: Yes: No Distress, Calm Cardiovascular: Yes: S1, S2 Respiratory: Yes: Regular, CTA Bilaterally Gastrointestinal: Yes: Normal Bowel Sounds, Soft Musculoskeletal: Yes: WNL Extremities: Yes: Other (drains in place) Neurological: Yes: Alert, Oriented Psychiatric: Yes: Alert, Oriented Labs: CBC, BMP 11/21/19 06:45 11/21/19 06:45 INR, PTT INR 1.19 (0.83-1.09) H 11/17/19 23:20 Assessment/Plan Problem List - Problems (1) Infection of prosthetic left knee joint Code(s): T84.54XA - INFECT/INFLM REACTION DUE TO INTERNAL LEFT KNEE PROSTH, INIT (2) Left leg DVT Code(s): I82.402 - ACUTE EMBOLISM AND THOMBOS UNSP DEEP VEINS OF L LOW EXTREM (3) Post-operative complication Code(s): T81.9XXA - UNSPECIFIED COMPLICATION OF PROCEDURE, INITIAL ENCOUNTER (4) Anemia Code(s): D64.9 - ANEMIA, UNSPECIFIED (5) BPH (benign prostatic hyperplasia) Code(s): N40.0 - BENIGN PROSTATIC HYPERPLASIA WITHOUT LOWER URINRY TRACT SYMP (6) DVT (deep venous thrombosis) Code(s): I82.409 - ACUTE EMBOLISM AND THOMBOS UNSP DEEP VN UNSP LOWER EXTREMITY wound infection plan continue abx wound care monitor h and h 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
--- NOTE | 2019-11-21 15:04 | PN ---
Teaching Attending Note Name of Resident: Scarlett Burnette ATTENDING PHYSICIAN STATEMENT I saw and evaluated the patient. I reviewed the resident's note and discussed the case with the resident. I agree with the resident's findings and plan as documented. SUBJECTIVE: Still have pain in his left knee and swelling OBJECTIVE: Vital Signs Period Temp Pulse Resp BP Sys/Gee Pulse Ox Last 24 Hr 98 F-101.7 F 96-122 20-20 101-150/47-78 93-98 GENERAL: Awake, alert, in no acute distress. HEAD: Normal with no signs of trauma. EYES: Pupils equal, round and reactive to light, extraocular movements intact, sclera anicteric, conjunctiva clear. EARS, NOSE, THROAT: Ears normal, nares patent, Moist mucous membranes. NECK: Normal range of motion, No JVD, LUNGS: Breath sounds equal, clear to auscultation bilaterally. No wheezes, and no crackles. No accessory muscle use. HEART: Regular rate and rhythm, normal S1 and S2 without murmur, rub or gallop. ABDOMEN: Soft, nontender, not distended, normoactive bowel sounds, no guarding, no rebound, +dunham MUSCULOSKELETAL: LLE Compression dressing noted with 2 drains EXTREMITIES: 2+ pulses, warm, well-perfused. No calf tenderness. No peripheral edema. NEUROLOGICAL: Cranial nerves II-XII intact. Normal speech. PSYCHIATRIC: Cooperative. Good eye contact. Appropriate mood and affect. SKIN: Warm, dry, normal turgor, no rashes or lesions noted. CBC, BMP 11/21/19 06:45 11/21/19 06:45 ASSESSMENT AND PLAN: 68 y/o male with a significant past medical history of L -TKR (last year), DVT (on Coumadin), IVC Filter, HTN, Hypercholesterolemia, GERD, Seizure Disorder, BPH, OA who presents with L Knee abscess with drainage. L Knee Abscess in setting of TKR s/p Explant of previous prosthetic, Abx spacer placed Appreciate Ortho Recs 2 units PRBC for anemia given drainage wound drains noted Continue IV Abx at this time, Blood Cx did not show any growth at this time, can consider deescalating at this time Hx of DVT on Coumadin US with DVT noted on this admission Unclear if patient has IVC filter as patient states he does not ever recall having an IVC filter Check Abd XR at this time Would prefer to restart AC when patient is cleared by Ortho to restart AC Concern for SBO: _patient reports not passing stool or gas sicne the procedure Able to tolerate PO intake Patient also noted to be on opiate pain medication will initiate bowel regimen, continue to monitor for signs of SBO Hx of Seizure disroder Continue Dilantin
[2019-11-21] MEDS: WARFARIN NA 5 MG TABLET PO SCH (17:37)
--- NOTE | 2019-11-21 18:48 | PN ---
Physical Exam: SUBJECTIVE: Patient seen and examined. NO acute overnight events. Passed 1 regular BM. Passing flatus. OBJECTIVE: Vital Signs Period Temp Pulse Resp BP Sys/Gee Pulse Ox Last 24 Hr 98 F-101.4 F 90-122 20-20 101-150/47-76 93-98 GENERAL: AAOx3, in NAD CV: regular rate and rhythm. S1, S2 present. No murmurs. RESPIRATORY: CTABL, no wrr ABDOMEN: Obese, NTND. +BS EXTREMITIES: LLE in immobilizer. [address] draining serosanguinous fluid. SKIN: Warm, dry. NEUROLOGICAL: Sensation intact throughout. LLE immobilized but able to move toes LLE. Laboratory Results - last 24 hr 11/17/19 11/20/19 11/21/19 23:20 19:50 06:00 WBC RBC Hgb Hct MCV MCH MCHC RDW Plt Count MPV Absolute Neuts (auto) Neutrophils % Lymphocytes % Monocytes % Eosinophils % Basophils % Nucleated RBC % Sodium Potassium Chloride Carbon Dioxide Anion Gap BUN Creatinine Est GFR (CKD-EPI)AfAm Est GFR (CKD-EPI)NonAf Random Glucose Lactic Acid 1.2 Calcium Urine Color Yellow Urine Appearance Clear Urine pH 5.5 Ur Specific [place] 1.015 Urine Protein Negative Urine Glucose (UA) Negative Urine Ketones Negative Urine Blood Negative Urine Nitrite Negative Urine Bilirubin Negative Urine Urobilinogen 1.0 Ur Leukocyte Esterase Negative Blood Type A POSITIVE Antibody Screen Negative Crossmatch See Detail 11/21/19 11/21/19 06:45 06:45 WBC 7.6 RBC 2.49 L Hgb 7.6 L Hct 22.5 L MCV 90.5 MCH 30.5 MCHC 33.7 RDW 14.6 Plt Count 114 L MPV 8.6 Absolute Neuts (auto) 5.8 Neutrophils % 75.8 Lymphocytes % 11.8 D Monocytes % 10.1 Eosinophils % 1.9 Basophils % 0.4 Nucleated RBC % 0 Sodium 137 Potassium 3.8 Chloride 104 Carbon Dioxide 28 Anion Gap 6 L BUN 15.5 Creatinine 0.8 Est GFR (CKD-EPI)AfAm 104.90 Est GFR (CKD-EPI)NonAf 90.51 Random Glucose 111 H Lactic Acid Calcium 7.5 L Urine Color Urine Appearance Urine pH Ur Specific [place] Urine Protein Urine Glucose (UA) Urine Ketones Urine Blood Urine Nitrite Urine Bilirubin Urine Urobilinogen Ur Leukocyte Esterase Blood Type Antibody Screen Crossmatch Active Medications Generic Name Dose Route Start Last Admin Trade Name Freq PRN Reason Stop Dose Admin Acetaminophen 650 mg 11/20/19 17:24 11/20/19 20:16 Tylenol - PO 650 mg Q6H PRN Administration Fever Or Pain Al Hydroxide/Mg Hydroxide 30 ml 11/19/19 13:49 Mylanta Oral Suspension - PO Q4H PRN DYSPEPSIA Aspirin 81 mg 11/19/19 22:00 11/21/19 11:08 Ecotrin - PO Not Given BID [facility] Budesonide/Formoterol Fumarate 2 puff 11/19/19 22:00 11/21/19 09:16 Symbicort 80/4.5mcg - IH 2 puff BID [facility] Administration Enoxaparin Sodium 100 mg 11/20/19 22:00 11/21/19 11:09 Lovenox - SQ 100 mg BID [facility] Administration Finasteride 5 mg 11/20/19 10:00 11/21/19 09:15 Proscar - PO 5 mg DAILY [facility] Administration Hydrochlorothiazide 12.5 mg 11/20/19 10:00 11/21/19 09:15 Hctz - PO 12.5 mg DAILY [facility] Administration Hydromorphone HCl 10 mg 11/19/19 13:49 11/20/19 14:53 Hydromorphone 10 Mg/50 Ml-Ns PACKAGING MATERIALS INSPECTOR 11/25/19 19:54 10 mg PACKAGING MATERIALS INSPECTOR [facility] Administration Protocol Piperacillin Sod/Tazobactam 50 mls @ 100 mls/hr 11/20/19 13:30 11/21/19 17:10 Sod 3.375 gm/ Dextrose IVPB 100 mls/hr Q8H-IV [facility] Administration Protocol Magnesium Hydroxide 30 ml 11/19/19 13:49 Milk Of Magnesia - PO PRN PRN CONSTIPATION Ondansetron HCl 4 mg 11/19/19 13:49 Zofran Injection IVPUSH Q6H PRN NAUSEA Pantoprazole Sodium 40 mg 11/20/19 10:00 11/21/19 09:15 Protonix - PO 40 mg DAILY [facility] Administration Phenytoin Sodium 500 mg 11/19/19 22:00 11/20/19 22:08 Dilantin - PO 500 mg HS [facility] Administration Senna/Docusate Sodium 2 tablet 11/19/19 22:00 11/21/19 09:15 Pericolace - PO Not Given BID [facility] Tamsulosin HCl 0.4 mg 11/20/19 08:30 11/21/19 09:15 Flomax - PO 0.4 mg DAILY@0830 [facility] Administration Warfarin Sodium 5 mg 11/20/19 18:00 11/21/19 17:37 Coumadin - PO 11/22/19 23:59 5 mg DAILY@1800 [facility] Administration Warfarin Sodium 2.5 mg 11/23/19 18:00 Coumadin - PO DAILY@1800 [facility] ASSESSMENT/PLAN: 68 year old M PMH L TKR 2019, DVT 2017 (on coumadin s/p IVC filter), HTN, hypercholesterolemia, GERD, seizure disorder, BPH, OA who presented with worsening L knee pain and swelling with drainage for several weeks. Pt admitted for infected L knee. #L knee abscess, s/p left TKR on 11/18 -S/p I&D left knee, removal L TKA hardware, placement left knee antibiotic spacer, tibial tubercle osteotomy -Dr. Langston following -c.w abx: Zosyn day #2 -Monitor drain output, I/O's -cx reports appreciated; proteus spp. , serratia, e. faecalis -PT/OT/Rehab, OOB. Strict non-weight bearing -Pain control prn w/ PACKAGING MATERIALS INSPECTOR c/w bowel regimen #Seizure disorder -c/w dilantin 250 BID #H/o DVT -Duplex lower extremity shows L popliteal vein DVT that is old, but persistent -IVC filter not seen on abd XR however cannot detect all ivc filters -coumadin has been resumed -heme consulted, recs appreciated #HTN, HLD - c/w home amlodipine-olmesartan 10-40mg qD, ASA 81, HCTZ 12.5 qD, metoprolol 50mg qD #BPH -c/w home tamsulosin, finasteride #FEN -no standing fluids -Monitor and replete electrolytes -Diet as tolerated #PPX -DVT: coumadin -GI: PPI Dispo: monitor on tele Visit type - Emergency Visit Emergency Visit: No - New Patient This patient is new to me today: No - Critical Care Critical Care patient: No - Medication Review Med list reviewed for High Risk Meds patients 65 and older: Yes ATTENDING PHYSICIAN STATEMENT I saw and evaluated the patient. I reviewed the resident's note and discussed the case with the resident. I agree with the resident's findings and plan as documented. SUBJECTIVE: OBJECTIVE: ASSESSMENT AND PLAN:
--- NOTE | 2019-11-21 19:06 | PN ---
Progress Note (short form) - Note Progress Note: 68M PMH L TKR (last year), DVT (on Coumadin), IVC Filter, HTN, Hyperch olesterolemia, GERD, Seizure Disorder, BPH, OA s/p Explant of previous prosthetic, Abx spacer POD#3. Received 2U PRBC. On PO diet, NRS pain 6/10 on ROLLER CHECKER. Vital Signs Temp 99.0 F 11/21/19 18:00 Pulse 90 11/21/19 18:00 Resp 20 11/21/19 18:00 BP 120/64 11/21/19 18:00 Pulse Ox 98 11/21/19 12:14 Intake & Output 11/20/19 11/21/19 11/21/19 23:59 11:59 23:59 Intake Total 1300 300 750 Output Total 410 1140 560 Balance 890 -840 190 Intake: IVPB 150 50 Oral 1100 150 Oral Supplement 200 Packed Cells 700 Output: Drainage 110 140 60 Left Knee 110 70 20 lt #2 70 40 Urine 300 1000 500 Void 300 1000 500 Other: Voiding Method Urinal Urinal Urinal # Unmeasured Voids [place] 800 Bowel Movement No Yes # Bowel Movements 1 CBC, BMP 11/21/19 06:45 11/21/19 06:45 - Continue ROLLER CHECKER. - Will evaluate in AM for transition to PO analgesic regimen
[2019-11-21] MEDS: ACETAMINOPHEN 325 MG TABLET (FP) PO PRN (21:46)
[2019-11-21 21:52] LABS: HEMATOCRIT 26.6 % (35.4-49); MCH 30.5 pg (25.7-33.7); MCHC 33.8 g/dl (32.0-35.9); MEAN CELL VOLUME 90.4 fl (80-96); MEAN PLT VOLUME 8.4 fl (7.5-11.1); PLATELET COUNT 127 K/MM3 (134-434); RBC 2.94 M/mm3 (4.00-5.60); RDW 15.3 % (11.9-15.9); WHITE BLOOD COUNT 6.4 K/mm3 (4.0-10.0)
[2019-11-21] MEDS: PHENYTOIN NA EXTENDED 100 MG CAPSULE (FP) PO SCH (22:59)
[2019-11-22] MEDS: SENNOSIDES/DOCUSATE COMBO (SENNA PLUS) TABLET (UD) PO SCH ×3 (00:08→22:13)
[2019-11-22] MEDS ORDERED: DEXTROSE 5%-WATER - 50 ML IVPB ONE ×3 (03:53→16:20)
[2019-11-22] MEDS ORDERED: PIPERACILLIN/TAZOBACTAM 3.375 GM VIAL IVPB ONE ×3 (03:53→16:20)
[2019-11-22] MEDS: PIPERACILLIN/TAZOB 3.375 GM 3.375 GM in DEXTROSE 5%-WATER - 50 ML IVPB SCH ×3 (04:01→17:13)
[2019-11-22 06:48] LABS: BASO % 0.5 % (0-2.0); EOS % 2.6 % (0-4.5); HEMATOCRIT 25.5 % (35.4-49); HEMOGLOBIN 8.7 GM/dL (11.7-16.9); LYMPH % 16.2 % (8-40); MCH 30.4 pg (25.7-33.7); MCHC 33.9 g/dl (32.0-35.9); MEAN CELL VOLUME 89.8 fl (80-96); MONO % 10.7 % (3.8-10.2); PLATELET COUNT 142 K/MM3 (134-434); RBC 2.84 M/mm3 (4.00-5.60); RDW 14.7 % (11.9-15.9); WHITE BLOOD COUNT 6.7 K/mm3 (4.0-10.0)
[2019-11-22 06:52] LABS: INR 1.24 (0.83-1.09); PROTHROMBIN TIME (PATIENT) 14.7 SEC (9.7-13.0)
[2019-11-22 07:19] LABS: ALBUMIN 1.7 g/dl (3.4-5.0); BLOOD UREA NITROGEN 11.5 mg/dL (7-18); CALCIUM 7.5 mg/dL (8.5-10.1); CREATININE 0.8 mg/dL (0.55-1.3); POTASSIUM 3.8 mmol/L (3.5-5.1)
[2019-11-22 07:21] LABS: BILIRUBIN,TOTAL 0.7 mg/dL (0.2-1); TOT PROT 5.6 g/dl (6.4-8.2)
--- NOTE | 2019-11-22 09:06 | PN ---
Progress Note (short form) - Note Progress Note: Anesthesia Post op/Pain Pt seen and examined by Juma Gloria CRNA S:Alert and awake. break through pain controlled by FRYER LINE HELPER O: Vital Signs Temperature 98.8 F 11/22/19 02:00 Pulse Rate 100 H 11/22/19 06:00 Respiratory Rate 18 11/22/19 06:00 Blood Pressure 139/82 11/22/19 06:00 O2 Sat by Pulse Oximetry (%) 98 11/21/19 12:14 CBC, BMP 11/22/19 06:11 11/22/19 06:11 A/P; Current Active Problems Encounter for screening laboratory testing for COVID-19 virus (Acute) Infection of prosthetic left knee joint (Acute) Left leg DVT (Acute) Post-operative complication (Acute) s/p total knee replacement left Doing well post op Continue FRYER LINE HELPER current care Chris Mitchell MD with [facility]
[2019-11-22] MEDS: TAMSULOSIN HCL 0.4 MG CAP PO SCH (09:26)
[2019-11-22] MEDS: FINASTERIDE 5 MG TABLET (FP) PO SCH (09:26)
[2019-11-22] MEDS: PANTOPRAZOLE 40 MG TABLET PO SCH (09:26)
[2019-11-22] MEDS: ASPIRIN COATED 81 MG TABLET.EC PO SCH ×2 (09:26→22:13)
[2019-11-22] MEDS: HYDROCHLOROTHIAZIDE 12.5 MG CAPSULE (FP) PO SCH (09:26)
[2019-11-22] MEDS: ENOXAPARIN NA (PORCINE) 100 MG/1 ML DISP.SYRIN SQ SCH ×2 (09:26→22:13)
[2019-11-22] MEDS: BUDESONIDE/FORMETEROL FUMARATE 80/4.5 mcg INHALER IH SCH ×2 (09:27→22:13)
--- NOTE | 2019-11-22 13:14 | PN ---
Physical Exam: SUBJECTIVE: Patient seen and examined No new change still having knee pain 5 x 10 on pain medication. Seen by orthopedics today. OBJECTIVE: Vital Signs Period Temp Pulse Resp BP Sys/Gee Pulse Ox Last 24 Hr 98 F-99.0 F 90-101 18-20 120-153/64-88 98-98 GENERAL: Awake, alert, in no acute distress. HEAD: Normal with no signs of trauma. EYES: Pupils equal, round and reactive to light, extraocular movements intact, sclera anicteric, conjunctiva clear. EARS, NOSE, THROAT: Ears normal, nares patent, Moist mucous membranes. NECK: Normal range of motion, No JVD, LUNGS: Breath sounds equal, clear to auscultation bilaterally. No wheezes, and no crackles. No accessory muscle use. HEART: Regular rate and rhythm, normal S1 and S2 without murmur, rub or gallop. ABDOMEN: Soft, nontender, not distended, normoactive bowel sounds, no guarding, no rebound, +dunham MUSCULOSKELETAL: LLE Compression dressing noted with 2 drains EXTREMITIES: 2+ pulses, warm, well-perfused. No calf tenderness. No peripheral edema. Laboratory Results - last 24 hr 11/17/19 11/21/19 11/22/19 23:20 21:25 06:11 WBC 6.4 6.7 RBC 2.94 L 2.84 L Hgb 9.0 L 8.7 L Hct 26.6 L D 25.5 L MCV 90.4 89.8 MCH 30.5 30.4 MCHC 33.8 33.9 RDW 15.3 14.7 Plt Count 127 L 142 MPV 8.4 8.0 Absolute Neuts (auto) 4.7 Neutrophils % 70.0 Lymphocytes % 16.2 D Monocytes % 10.7 H Eosinophils % 2.6 Basophils % 0.5 Nucleated RBC % 0 PT with INR INR Sodium Potassium Chloride Carbon Dioxide Anion Gap BUN Creatinine Est GFR (CKD-EPI)AfAm Est GFR (CKD-EPI)NonAf Random Glucose Calcium Phosphorus Magnesium Total Bilirubin AST ALT Alkaline Phosphatase Total Protein Albumin Blood Type A POSITIVE Antibody Screen Negative Crossmatch See Detail 11/22/19 11/22/19 06:11 06:11 WBC RBC Hgb Hct MCV MCH MCHC RDW Plt Count MPV Absolute Neuts (auto) Neutrophils % Lymphocytes % Monocytes % Eosinophils % Basophils % Nucleated RBC % PT with INR 14.70 H INR 1.24 H Sodium 136 Potassium 3.8 Chloride 101 Carbon Dioxide 29 Anion Gap 6 L BUN 11.5 Creatinine 0.8 Est GFR (CKD-EPI)AfAm 104.90 Est GFR (CKD-EPI)NonAf 90.51 Random Glucose 113 H Calcium 7.5 L Phosphorus 2.0 L Magnesium 2.0 Total Bilirubin 0.7 AST 53 H ALT 24 Alkaline Phosphatase 158 H Total Protein 5.6 L Albumin 1.7 L Blood Type Antibody Screen Crossmatch Active Medications Generic Name Dose Route Start Last Admin Trade Name Freq PRN Reason Stop Dose Admin Acetaminophen 650 mg 11/20/19 17:24 11/21/19 21:46 Tylenol - PO 650 mg Q6H PRN Administration Fever Or Pain Al Hydroxide/Mg Hydroxide 30 ml 11/19/19 13:49 Mylanta Oral Suspension - PO Q4H PRN DYSPEPSIA Aspirin 81 mg 11/19/19 22:00 11/22/19 09:26 Ecotrin - PO 81 mg BID [facility] Administration Budesonide/Formoterol Fumarate 2 puff 11/19/19 22:00 11/22/19 09:27 Symbicort 80/4.5mcg - IH 2 puff BID [facility] Administration Enoxaparin Sodium 100 mg 11/20/19 22:00 11/22/19 09:26 Lovenox - SQ 100 mg BID [facility] Administration Finasteride 5 mg 11/20/19 10:00 11/22/19 09:26 Proscar - PO 5 mg DAILY [facility] Administration Hydrochlorothiazide 12.5 mg 11/20/19 10:00 11/22/19 09:26 Hctz - PO 12.5 mg DAILY [facility] Administration Hydromorphone HCl 10 mg 11/19/19 13:49 11/20/19 14:53 Hydromorphone 10 Mg/50 Ml-Ns TITLE CLOSER 11/25/19 19:54 10 mg TITLE CLOSER [facility] Administration Protocol Piperacillin Sod/Tazobactam 50 mls @ 100 mls/hr 11/20/19 13:30 11/22/19 09:27 Sod 3.375 gm/ Dextrose IVPB 100 mls/hr Q8H-IV [facility] Administration Protocol Magnesium Hydroxide 30 ml 11/19/19 13:49 Milk Of Magnesia - PO PRN PRN CONSTIPATION Ondansetron HCl 4 mg 11/19/19 13:49 Zofran Injection IVPUSH Q6H PRN NAUSEA Pantoprazole Sodium 40 mg 11/20/19 10:00 11/22/19 09:26 Protonix - PO 40 mg DAILY [facility] Administration Phenytoin Sodium 500 mg 11/19/19 22:00 11/21/19 22:59 Dilantin - PO 500 mg HS [facility] Administration Senna/Docusate Sodium 2 tablet 11/19/19 22:00 11/22/19 09:26 Pericolace - PO Not Given BID [facility] Tamsulosin HCl 0.4 mg 11/20/19 08:30 11/22/19 09:26 Flomax - PO 0.4 mg DAILY@0830 [facility] Administration Warfarin Sodium 5 mg 11/20/19 18:00 11/21/19 17:37 Coumadin - PO 11/22/19 23:59 5 mg DAILY@1800 [facility] Administration Warfarin Sodium 2.5 mg 11/23/19 18:00 Coumadin - PO DAILY@1800 [facility] ASSESSMENT/PLAN: 68 y/o male with a significant past medical history of L -TKR (last year), DVT (on Coumadin), IVC Filter, HTN, Hypercholesterolemia, GERD, Seizure Disorder, BPH, OA who presents with L Knee abscess with drainage. L Knee Abscess in setting of TKR s/p Explant of previous prosthetic, Abx spacer placed Appreciate Ortho Recs 2 units PRBC for anemia given drainage wound drains noted Continue IV Abx at this time, Blood Cx did not show any growth at this time, Hx of DVT on Coumadin US with DVT noted on this admission Unclear if patient has IVC filter as patient states he does not ever recall having an IVC filter Check Abd XR at this time On warfarin waiting for INR to become therapeutic before stopping heparin Concern for SBO: _patient reports not passing stool or gas sicne the procedure Able to tolerate PO intake Patient also noted to be on opiate pain medication will initiate bowel regimen, continue to monitor for signs of SBO Hx of Seizure disroder Continue Dilantin Visit type - Emergency Visit Emergency Visit: Yes ED Registration Date: 11/17/19 Care time: The patient presented to the Emergency Department on the above date and was hospitalized for further evaluation of their emergent condition. - New Patient This patient is new to me today: No - Critical Care Critical Care patient: No - Discharge Referral Referred to [facility] Med P.C.: No - Medication Review Med list reviewed for High Risk Meds patients 65 and older: Yes
[2019-11-22] MEDS: HYDROmorphone *PCA* 10MG/50ML DISP.SYRIN PCA SCH (17:13)
[2019-11-22] MEDS: WARFARIN NA 5 MG TABLET PO SCH (17:14)
[2019-11-22] MEDS: ACETAMINOPHEN 325 MG TABLET (FP) PO PRN (22:13)
[2019-11-22] MEDS: PHENYTOIN NA EXTENDED 100 MG CAPSULE (FP) PO SCH (22:13)
[2019-11-23] MEDS ORDERED: PIPERACILLIN/TAZOBACTAM 3.375 GM VIAL IVPB ONE ×3 (02:57→17:08)
[2019-11-23] MEDS ORDERED: DEXTROSE 5%-WATER - 50 ML IVPB ONE ×3 (02:58→17:08)
[2019-11-23] MEDS: PIPERACILLIN/TAZOB 3.375 GM 3.375 GM in DEXTROSE 5%-WATER - 50 ML IVPB SCH ×3 (03:06→17:11)
[2019-11-23] MEDS: HYDROmorphone *PCA* 10MG/50ML DISP.SYRIN PCA SCH ×2 (06:27→14:36)
[2019-11-23] MEDS: ENOXAPARIN NA (PORCINE) 100 MG/1 ML DISP.SYRIN SQ SCH ×2 (10:14→21:34)
[2019-11-23] MEDS: ASPIRIN COATED 81 MG TABLET.EC PO SCH ×2 (10:14→21:34)
[2019-11-23] MEDS: TAMSULOSIN HCL 0.4 MG CAP PO SCH (10:14)
[2019-11-23] MEDS: SENNOSIDES/DOCUSATE COMBO (SENNA PLUS) TABLET (UD) PO SCH ×4 (10:14→21:43)
[2019-11-23] MEDS: BUDESONIDE/FORMETEROL FUMARATE 80/4.5 mcg INHALER IH SCH ×2 (10:15→21:35)
[2019-11-23] MEDS: HYDROCHLOROTHIAZIDE 12.5 MG CAPSULE (FP) PO SCH (10:15)
[2019-11-23] MEDS: PANTOPRAZOLE 40 MG TABLET PO SCH (10:15)
[2019-11-23] MEDS: FINASTERIDE 5 MG TABLET (FP) PO SCH (10:15)
--- NOTE | 2019-11-23 10:24 | PN ---
Physical Exam: SUBJECTIVE: Patient seen and examined. No acute events overnight. No concerning events noted in telemetry. Upon my evaluation, pt stated pain is 6/10 with use of CARPENTER SUPERVISOR. Denies fevers, chills, shortness of breath, chest pain, nausea, vomiting diarrhea. Endorses to passing gas and having BM. OBJECTIVE: Vital Signs Period Temp Pulse Resp BP Sys/Gee Pulse Ox Last 24 Hr 98.1 F-99.8 F 78-111 18-18 132-145/52-84 98-99 GENERAL: AAOx3, not in acute distress HEENT: NCAT, EOMI, moist mucus membranes. CARDIAC: regular rate and rhythm. S1, S2 present. No murmurs. RESPIRATORY: CTA b/l, no wheezes. ABDOMEN: Obese, non-distended, non-tender to palpation. Normoactive bowel sounds. EXTREMITIES: LLE bandaged and immobilized. 2 drains visible next to leg. Draining serosanguinous fluid. SKIN: Warm, dry. NEUROLOGICAL: Sensation and movement intact. Moves toes spontaneously. CBC, BMP 11/22/19 06:11 11/22/19 06:11 Active Medications Acetaminophen (Tylenol -) 650 mg PO Q6H PRN PRN Reason: Fever Or Pain Last Admin: 11/22/19 22:13 Dose: 650 mg Documented by: Al Hydroxide/Mg Hydroxide (Mylanta Oral Suspension -) 30 ml PO Q4H PRN PRN Reason: DYSPEPSIA Aspirin (Ecotrin -) 81 mg PO BID [facility] Last Admin: 11/23/19 10:14 Dose: 81 mg Documented by: Budesonide/Formoterol Fumarate (Symbicort 80/4.5mcg -) 2 puff IH BID [facility] Last Admin: 11/23/19 10:15 Dose: 2 puff Documented by: Enoxaparin Sodium (Lovenox -) 100 mg SQ BID [facility] Last Admin: 11/23/19 10:14 Dose: 100 mg Documented by: Finasteride (Proscar -) 5 mg PO DAILY [facility] Last Admin: 11/23/19 10:15 Dose: 5 mg Documented by: Guaifenesin (Robitussin -) 10 ml PO Q4H PRN PRN Reason: COUGH Last Admin: 11/23/19 15:00 Dose: 10 ml Documented by: Hydrochlorothiazide (Hctz -) 12.5 mg PO DAILY [facility] Last Admin: 11/23/19 10:15 Dose: 12.5 mg Documented by: Hydromorphone HCl (Hydromorphone 10 Mg/50 Ml-Ns) 10 mg CARPENTER SUPERVISOR CARPENTER SUPERVISOR [facility]; Protocol Stop: 11/25/19 19:54 Last Admin: 11/23/19 14:36 Dose: Not Given Documented by: Piperacillin Sod/Tazobactam (Sod 3.375 gm/ Dextrose) 50 mls @ 100 mls/hr IVPB Q8H-IV [facility]; Protocol Last Admin: 11/23/19 10:15 Dose: 100 mls/hr Documented by: Magnesium Hydroxide (Milk Of Magnesia -) 30 ml PO PRN PRN PRN Reason: CONSTIPATION Ondansetron HCl (Zofran Injection) 4 mg IVPUSH Q6H PRN PRN Reason: NAUSEA Pantoprazole Sodium (Protonix -) 40 mg PO DAILY [facility] Last Admin: 11/23/19 10:15 Dose: 40 mg Documented by: Phenytoin Sodium (Dilantin -) 500 mg PO HS [facility] Last Admin: 11/22/19 22:13 Dose: 500 mg Documented by: Senna/Docusate Sodium (Pericolace -) 2 tablet PO BID [facility] Last Admin: 11/23/19 10:28 Dose: Not Given Documented by: Tamsulosin HCl (Flomax -) 0.4 mg PO DAILY@0830 [facility] Last Admin: 11/23/19 10:14 Dose: 0.4 mg Documented by: Warfarin Sodium (Coumadin -) 2.5 mg PO DAILY@1800 [facility] ASSESSMENT/PLAN: 68 year old M PMH L TKR 2019, DVT 2017 (on coumadin s/p IVC filter), HTN, hypercholesterolemia, GERD, seizure disorder, BPH, OA who presented with worsening L knee pain and swelling with drainage for several weeks. Pt admitted for infected L knee. He is s/p I&D of L knee, L TKA hardware removal, tibial tubercle osteotomy, and placement of L knee abx spacer on 11/19/2019. L infected periprosthetic knee - Pt POD #4 for I&D left knee, removal L TKA hardware, placement left knee antibiotic spacer, tibial tubercle osteotomy - Monitor drain output, I/O's - Tissue cx growing proteus, prevotella disiens, serratia, enterococcus faecalis. Ucx negative. Bcx negative thus far. - c/w Zosyn, started 11/20/2019. Today is day 4. - Ortho following. Recommended OOBTC, evaluation for drain removal, and PICC line tomorrow. - ID consulted. Recommended c/w abx and wound care. - Anesthesia following. Pain control w/ CARPENTER SUPERVISOR. Evaluation tomorrow to switch to PO. - c/w bowel regimen - bridging lovenox to warfarin, INR 1.24. 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 f/u INR. C/w ASA 81mg - abdominal Xray did not detect IVC filter, however, not all can be detected wit h Xray - Heme/onc consulted. Pending recommendations. HTN, Hypercholesterolemia - c/w ASA 81, HCTZ 12.5 qD - resume home dose antihypertensives when possible BPH -c/w home tamsulosin, finasteride FEN - No standing fluids -Monitor and replete electrolytes -Regular diet Ppx - DVT: Lovenox - GI: PPI Dispo: monitor in telemetry. Visit type - Emergency Visit Emergency Visit: Yes ED Registration Date: 11/17/19 Care time: The patient presented to the Emergency Department on the above date and was hospitalized for further evaluation of their emergent condition. - New Patient This patient is new to me today: No - Critical Care Critical Care patient: No - Medication Review Med list reviewed for High Risk Meds patients 65 and older: Yes ATTENDING PHYSICIAN STATEMENT I saw and evaluated the patient. I reviewed the resident's note and discussed the case with the resident. I agree with the resident's findings and plan as documented. SUBJECTIVE: OBJECTIVE: ASSESSMENT AND PLAN:
--- NOTE | 2019-11-23 10:55 | PN ---
Progress Note, Physician History of Present Illness: stable no new issues - Current Medication List Current Medications: Active Medications Acetaminophen (Tylenol -) 650 mg PO Q6H PRN PRN Reason: Fever Or Pain Last Admin: 11/22/19 22:13 Dose: 650 mg Documented by: Al Hydroxide/Mg Hydroxide (Mylanta Oral Suspension -) 30 ml PO Q4H PRN PRN Reason: DYSPEPSIA Aspirin (Ecotrin -) 81 mg PO BID [facility] Last Admin: 11/23/19 10:14 Dose: 81 mg Documented by: Budesonide/Formoterol Fumarate (Symbicort 80/4.5mcg -) 2 puff IH BID [facility] Last Admin: 11/23/19 10:15 Dose: 2 puff Documented by: Enoxaparin Sodium (Lovenox -) 100 mg SQ BID [facility] Last Admin: 11/23/19 10:14 Dose: 100 mg Documented by: Finasteride (Proscar -) 5 mg PO DAILY [facility] Last Admin: 11/23/19 10:15 Dose: 5 mg Documented by: Hydrochlorothiazide (Hctz -) 12.5 mg PO DAILY [facility] Last Admin: 11/23/19 10:15 Dose: 12.5 mg Documented by: Hydromorphone HCl (Hydromorphone 10 Mg/50 Ml-Ns) 10 mg FARMWORKER GRAIN FARMWORKER GRAIN [facility]; Protocol Stop: 11/25/19 19:54 Last Admin: 11/23/19 06:27 Dose: 10 mg Documented by: Piperacillin Sod/Tazobactam (Sod 3.375 gm/ Dextrose) 50 mls @ 100 mls/hr IVPB Q8H-IV [facility]; Protocol Last Admin: 11/23/19 10:15 Dose: 100 mls/hr Documented by: Magnesium Hydroxide (Milk Of Magnesia -) 30 ml PO PRN PRN PRN Reason: CONSTIPATION Ondansetron HCl (Zofran Injection) 4 mg IVPUSH Q6H PRN PRN Reason: NAUSEA Pantoprazole Sodium (Protonix -) 40 mg PO DAILY [facility] Last Admin: 11/23/19 10:15 Dose: 40 mg Documented by: Phenytoin Sodium (Dilantin -) 500 mg PO HS [facility] Last Admin: 11/22/19 22:13 Dose: 500 mg Documented by: Senna/Docusate Sodium (Pericolace -) 2 tablet PO BID [facility] Last Admin: 11/23/19 10:28 Dose: Not Given Documented by: Tamsulosin HCl (Flomax -) 0.4 mg PO DAILY@0830 [facility] Last Admin: 11/23/19 10:14 Dose: 0.4 mg Documented by: Warfarin Sodium (Coumadin -) 2.5 mg PO DAILY@1800 [facility] - Objective Vital Signs: Vital Signs Temperature 98.9 F 11/23/19 10:00 Pulse Rate 110 H 11/23/19 10:00 Respiratory Rate 20 11/23/19 10:00 Blood Pressure 147/83 11/23/19 10:00 O2 Sat by Pulse Oximetry (%) 99 11/23/19 08:43 Constitutional: Yes: No Distress, Calm Cardiovascular: Yes: S1, S2 Respiratory: Yes: Regular, CTA Bilaterally Gastrointestinal: Yes: Normal Bowel Sounds, Soft Musculoskeletal: Yes: WNL Extremities: Yes: Other Wound/Incision: Yes: Dressing Dry and Intact Neurological: Yes: Alert, Oriented Psychiatric: Yes: Alert, Oriented Labs: CBC, BMP 11/22/19 06:11 11/22/19 06:11 INR, PTT INR 1.24 (0.83-1.09) H 11/22/19 06:11 Assessment/Plan Problem List - Problems (1) Infection of prosthetic left knee joint Code(s): T84.54XA - INFECT/INFLM REACTION DUE TO INTERNAL LEFT KNEE PROSTH, INIT (2) Left leg DVT Code(s): I82.402 - ACUTE EMBOLISM AND THOMBOS UNSP DEEP VEINS OF L LOW EXTREM (3) Post-operative complication Code(s): T81.9XXA - UNSPECIFIED COMPLICATION OF PROCEDURE, INITIAL ENCOUNTER (4) Anemia Code(s): D64.9 - ANEMIA, UNSPECIFIED (5) BPH (benign prostatic hyperplasia) Code(s): N40.0 - BENIGN PROSTATIC HYPERPLASIA WITHOUT LOWER URINRY TRACT SYMP (6) DVT (deep venous thrombosis) Code(s): I82.409 - ACUTE EMBOLISM AND THOMBOS UNSP DEEP VN UNSP LOWER EXTREMITY wound infection plan continue abx wound care monitor h and h 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
--- NOTE | 2019-11-23 11:59 | PN ---
Teaching Attending Note Name of Resident: Barbie Rocha ATTENDING PHYSICIAN STATEMENT I saw and evaluated the patient. I reviewed the resident's note and discussed the case with the resident. I agree with the resident's findings and plan as documented. SUBJECTIVE: OBJECTIVE: ASSESSMENT AND PLAN: 68 y/o male with a significant past medical history of Left -TKR (last year), DVT (on Coumadin), IVC Filter, HTN, Hypercholesterolemia, GERD, Seizure Disorder, BPH, OA who presents with Left Knee abscess with drainage. 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
--- NOTE | 2019-11-23 12:20 | PN ---
Progress Note (short form) - Note Progress Note: POD #5 Apyrexial Orientated TPP L LE in splint and dry bandaging noted Drains in situ Not thus still draining see chart. PLAN PT OOBTC tomorrow Review for drain removal tomorrow PICC line tomorrow to discuss with ID
--- NOTE | 2019-11-23 14:11 | PN ---
Progress Note (short form) - Note Progress Note: 68M PMH L TKR (last year), DVT (on Coumadin), IVC Filter, HTN, Hyperch olesterolemia, GERD, Seizure Disorder, BPH, OA s/p Explant of previous prosthetic, Abx spacer POD#5. Pain managed with EMPLOYMENT INTERVIEWER. Vital Signs Temp 98.9 F 11/23/19 10:00 Pulse 110 H 11/23/19 10:00 Resp 20 11/23/19 10:00 BP 147/83 11/23/19 10:00 Pulse Ox 99 11/23/19 08:43 Intake & Output 11/22/19 11/23/19 11/23/19 23:59 11:59 23:59 Intake Total 100 100 Output Total 300 930 Balance -200 -830 Intake: IVPB 100 Oral 100 Output: Drainage 30 left knee #1 30 Urine 300 900 Void 300 900 Other: Voiding Method Urinal Urinal CBC, BMP 11/22/19 06:11 11/22/19 06:11 - Continue EMPLOYMENT INTERVIEWER - Reevaluate in AM for transition to PO analgesic regimen
[2019-11-23] MEDS: guaiFENesin 200 MG/10 ML 10 ML UNIT-DOSE CUPS PO PRN (15:00)
[2019-11-23] MEDS: WARFARIN NA 2.5 MG TABLET PO SCH (17:11)
[2019-11-23] MEDS: PHENYTOIN NA EXTENDED 100 MG CAPSULE (FP) PO SCH (21:34)
[2019-11-24] MEDS ORDERED: PIPERACILLIN/TAZOBACTAM 3.375 GM VIAL IVPB ONE ×3 (00:56→17:33)
[2019-11-24] MEDS ORDERED: DEXTROSE 5%-WATER - 50 ML IVPB ONE ×3 (00:57→17:34)
[2019-11-24] MEDS: PIPERACILLIN/TAZOB 3.375 GM 3.375 GM in DEXTROSE 5%-WATER - 50 ML IVPB SCH ×3 (02:00→17:36)
[2019-11-24 08:20] LABS: HEMATOCRIT 22.3 % (35.4-49); HEMOGLOBIN 7.5 GM/dL (11.7-16.9); MCH 30.9 pg (25.7-33.7); MCHC 33.5 g/dl (32.0-35.9); MEAN CELL VOLUME 92.4 fl (80-96); MEAN PLT VOLUME 7.7 fl (7.5-11.1); PLATELET COUNT 210 K/MM3 (134-434); RBC 2.41 M/mm3 (4.00-5.60); RDW 14.9 % (11.9-15.9); WHITE BLOOD COUNT 8.4 K/mm3 (4.0-10.0)
[2019-11-24] MEDS: TAMSULOSIN HCL 0.4 MG CAP PO SCH (08:28)
[2019-11-24 08:40] LABS: INR 1.34 (0.83-1.09); PROTHROMBIN TIME (PATIENT) 15.9 SEC (9.7-13.0)
[2019-11-24 09:10] LABS: ALBUMIN 1.7 g/dl (3.4-5.0); BILIRUBIN,TOTAL 0.6 mg/dL (0.2-1); BLOOD UREA NITROGEN 17.2 mg/dL (7-18); CALCIUM 7.8 mg/dL (8.5-10.1); CREATININE 0.8 mg/dL (0.55-1.3); POTASSIUM 4.1 mmol/L (3.5-5.1); TOT PROT 5.8 g/dl (6.4-8.2)
[2019-11-24] MEDS: HYDROCHLOROTHIAZIDE 12.5 MG CAPSULE (FP) PO SCH (10:06)
[2019-11-24] MEDS: PANTOPRAZOLE 40 MG TABLET PO SCH (10:06)
[2019-11-24] MEDS: ENOXAPARIN NA (PORCINE) 100 MG/1 ML DISP.SYRIN SQ SCH ×2 (10:06→22:52)
[2019-11-24] MEDS: FINASTERIDE 5 MG TABLET (FP) PO SCH (10:06)
[2019-11-24] MEDS: BUDESONIDE/FORMETEROL FUMARATE 80/4.5 mcg INHALER IH SCH ×2 (10:07→22:53)
[2019-11-24] MEDS: ASPIRIN COATED 81 MG TABLET.EC PO SCH ×2 (10:07→22:51)
[2019-11-24] MEDS: SENNOSIDES/DOCUSATE COMBO (SENNA PLUS) TABLET (UD) PO SCH ×2 (10:07→22:52)
[2019-11-24] MEDS: HYDROmorphone *PCA* 10MG/50ML DISP.SYRIN PCA SCH ×2 (10:36→13:00)
--- NOTE | 2019-11-24 11:08 | PN ---
Progress Note (short form) - Note Progress Note: POD #6, s/p I&D left knee, Removal L TKA hardware, Placement left knee antibiotic spacer, Tibial tubercle osteotomy Patient seen and examined on AM rounds. Reports pain has been controlled by CHURCH HISTORY TEACHER. No issues over the weekend. Has not been oob, tolerating po, voiding and having bms without an issue. Denies any CP, SOB, N/V, fever or chills. Vital Signs Temp 99.7 F H 11/24/19 06:00 Pulse 102 H 11/24/19 06:00 Resp 18 11/24/19 06:00 BP 118/58 L 11/24/19 06:00 Pulse Ox 96 11/24/19 06:00 Intake & Output 11/23/19 11/23/19 11/24/19 11:59 23:59 11:59 Intake Total 795 305 5146 Output Total 930 700 955 Balance -830 -250 195 Intake: IV 1000 saline lock 1000 IVPB 100 100 50 Oral 350 100 Output: Drainage 30 55 left knee #1 30 30 left knee #2 25 Urine 900 700 900 Void 900 700 900 Other: Voiding Method Urinal Urinal Urinal Bowel Movement Yes No CBC, BMP 11/24/19 07:15 11/24/19 07:15 Microbiology 11/17/19 23:20 Knee - Left Gram Stain - Final 11/17/19 23:20 Knee - Left Wound Culture - Final Serratia Marcescens Enterococcus Faecalis Proteus Mirabilis 11/18/19 18:31 Tissue-Other AFB Smear Concentration - Preliminary 11/18/19 18:31 Tissue-Other Mycobacterial Culture - Preliminary 11/18/19 16:37 Knee - Left Gram Stain - Final 11/18/19 16:37 Knee - Left Wound Culture - Preliminary Proteus Species Non Lactose Fermenting Gnb 11/18/19 18:31 Tissue-Other Gram Stain - Final 11/18/19 18:31 Tissue-Other Tissue Culture - Preliminary Non Lactose Fermenting Gnb 11/18/19 19:51 Urine - Urine - Catheterized Urine Culture - Final NO GROWTH OBTAINED 11/17/19 23:20 Blood - Peripheral Venous Blood Culture - Preliminary NO GROWTH OBTAINED AFTER 48 HOURS, INCUBATION TO CONTINUE FOR 3 DAYS. 11/17/19 23:20 Blood - Peripheral Venous Blood Culture - Preliminary NO GROWTH OBTAINED AFTER 48 HOURS, INCUBATION TO CONTINUE FOR 3 DAYS. 11/18/19 18:31 Tissue-Other LIDIA Preparation - Preliminary 11/18/19 18:31 Tissue-Other Fungal Culture - Preliminary 11/18/19 16:37 Knee - Left LIDIA Preparation - Preliminary 11/18/19 16:37 Knee - Left Fungal Culture - Preliminary 11/18/19 16:37 Knee - Left AFB Smear Concentration - Preliminary 11/18/19 16:37 Knee - Left Mycobacterial Culture - Preliminary PE: A&Ox3, NAD Unlabored resp on RA Left LE immobilizer opened-compressive wrap in place with moderated drainage on posterior aspect. Diffuse edema throughout with soft thig/calf, +ttp in thigh/calf as expected. Foot and toes warm and well perfused with +2 dp pulse. + dorsi/plantar flexion. Drains x2 secure and draining well. A/P: 68 y/o M w/ PMHx L TKR (last year), DVT (on Coumadin), IVC Filter, HTN, Hypercholesterolemia, GERD, Seizure Disorder, BPH, OA now a/w joint infection, n ow POD #6, s/p I&D left knee, Removal L TKA hardware, Placement left knee antibiotic spacer, Tibial tubercle osteotomy -Plan for dressing change later today -Elevate Left LE while in bed -Maintain compression dressing -Pain control: as per anesthesia team still on CHURCH HISTORY TEACHER. -DVT PPx: -hematology reviewed and appreciated- chronic L popliteal vein DVT with no acute intervention-follow up with vascular as outpatient. -Chemical: Lovenox, Warfarin: bridge to therapeutic INR (2-3) -Mechanical: BARB's, SCD's. -Incentive spirometry q15 min. -PT/OT/Rehab, OOB. -Strict NWB RLE. -Post-op antibiotics: per ID -keep drains in place and record output. -Diet as tolerated. -Care per medical hospitalist, hematology Evaluation and plan discussed with Dr Hilario Langston
--- NOTE | 2019-11-24 12:53 | PN ---
Progress Note, Physician History of Present Illness: stable no new issues - Current Medication List Current Medications: Active Medications Acetaminophen (Tylenol -) 650 mg PO Q6H PRN PRN Reason: Fever Or Pain Last Admin: 11/22/19 22:13 Dose: 650 mg Documented by: Al Hydroxide/Mg Hydroxide (Mylanta Oral Suspension -) 30 ml PO Q4H PRN PRN Reason: DYSPEPSIA Aspirin (Ecotrin -) 81 mg PO BID [facility] Last Admin: 11/24/19 10:07 Dose: 81 mg Documented by: Budesonide/Formoterol Fumarate (Symbicort 80/4.5mcg -) 2 puff IH BID [facility] Last Admin: 11/24/19 10:07 Dose: 2 puff Documented by: Enoxaparin Sodium (Lovenox -) 100 mg SQ BID [facility] Last Admin: 11/24/19 10:06 Dose: 100 mg Documented by: Finasteride (Proscar -) 5 mg PO DAILY [facility] Last Admin: 11/24/19 10:06 Dose: 5 mg Documented by: Guaifenesin (Robitussin -) 10 ml PO Q4H PRN PRN Reason: COUGH Last Admin: 11/23/19 15:00 Dose: 10 ml Documented by: Hydrochlorothiazide (Hctz -) 12.5 mg PO DAILY [facility] Last Admin: 11/24/19 10:06 Dose: 12.5 mg Documented by: Hydromorphone HCl (Hydromorphone 10 Mg/50 Ml-Ns) 10 mg RIVET SORTER RIVET SORTER [facility]; Protocol Stop: 11/25/19 19:54 Last Admin: 11/24/19 10:36 Dose: 10 mg Documented by: Piperacillin Sod/Tazobactam (Sod 3.375 gm/ Dextrose) 50 mls @ 100 mls/hr IVPB Q8H-IV [facility]; Protocol Last Admin: 11/24/19 10:06 Dose: 100 mls/hr Documented by: Magnesium Hydroxide (Milk Of Magnesia -) 30 ml PO PRN PRN PRN Reason: CONSTIPATION Ondansetron HCl (Zofran Injection) 4 mg IVPUSH Q6H PRN PRN Reason: NAUSEA Pantoprazole Sodium (Protonix -) 40 mg PO DAILY [facility] Last Admin: 11/24/19 10:06 Dose: 40 mg Documented by: Phenytoin Sodium (Dilantin -) 500 mg PO [facility] Last Admin: 11/23/19 21:34 Dose: 500 mg Documented by: Senna/Docusate Sodium (Pericolace -) 2 tablet PO BID [facility] Last Admin: 11/24/19 10:07 Dose: Not Given Documented by: Tamsulosin HCl (Flomax -) 0.4 mg PO DAILY@0830 [facility] Last Admin: 11/24/19 08:28 Dose: 0.4 mg Documented by: Warfarin Sodium (Coumadin -) 2.5 mg PO DAILY@1800 [facility] Last Admin: 11/23/19 17:11 Dose: 2.5 mg Documented by: - Objective Vital Signs: Vital Signs Temperature 98.0 F 11/24/19 10:00 Pulse Rate 105 H 11/24/19 10:00 Respiratory Rate 20 11/24/19 10:00 Blood Pressure 116/70 11/24/19 10:00 O2 Sat by Pulse Oximetry (%) 97 11/24/19 10:00 Constitutional: Yes: No Distress, Calm Cardiovascular: Yes: S1, S2 Respiratory: Yes: Regular, CTA Bilaterally Gastrointestinal: Yes: Normal Bowel Sounds, Soft Musculoskeletal: Yes: WNL Extremities: Yes: Other Wound/Incision: Yes: Dressing Dry and Intact, Other (hemovac in place) Neurological: Yes: Alert, Oriented Labs: CBC, BMP 11/24/19 07:15 11/24/19 07:15 INR, PTT INR 1.34 (0.83-1.09) H 11/24/19 07:15 Assessment/Plan Problem List - Problems (1) Infection of prosthetic left knee joint Code(s): T84.54XA - INFECT/INFLM REACTION DUE TO INTERNAL LEFT KNEE PROSTH, INIT (2) Left leg DVT Code(s): I82.402 - ACUTE EMBOLISM AND THOMBOS UNSP DEEP VEINS OF L LOW EXTREM (3) Post-operative complication Code(s): T81.9XXA - UNSPECIFIED COMPLICATION OF PROCEDURE, INITIAL ENCOUNTER (4) Anemia Code(s): D64.9 - ANEMIA, UNSPECIFIED (5) BPH (benign prostatic hyperplasia) Code(s): N40.0 - BENIGN PROSTATIC HYPERPLASIA WITHOUT LOWER URINRY TRACT SYMP (6) DVT (deep venous thrombosis) Code(s): I82.409 - ACUTE EMBOLISM AND THOMBOS UNSP DEEP VN UNSP LOWER EXTREMITY wound infection plan continue abx 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
--- NOTE | 2019-11-24 15:05 | PN ---
Physical Exam: SUBJECTIVE: Patient seen and examined. No acute events overnight. Pt stated that his leg pain is 0/10 without movement. Leg pain is induced with movement and can go to 6/10. Pt denied fevers, chills, SOB, c/p, n/v/d. OBJECTIVE: Vital Signs Period Temp Pulse Resp BP Sys/Gee Pulse Ox Last 24 Hr 98.0 F-99.7 F 102-117 18-20 116-129/58-84 95-97 GENERAL: AAOx3, not in acute distress HEENT: NCAT, EOMI, moist mucus membranes. CARDIAC: regular rate and rhythm. S1, S2 present. No murmurs. RESPIRATORY: CTA b/l, no wheezes. ABDOMEN: Obese, non-distended, non-tender to palpation. Normoactive bowel sounds. EXTREMITIES: LLE bandaged and immobilized. 2 drains visible next to leg. Draining sanguineous fluid. SKIN: Warm, dry. NEUROLOGICAL: Sensation and movement intact. Moves toes spontaneously. Laboratory Last Values WBC 8.4 K/mm3 (4.0-10.0) 11/24/19 07:15 RBC 2.41 M/mm3 (4.00-5.60) L 11/24/19 07:15 Hgb 7.5 GM/dL (11.7-16.9) L 11/24/19 07:15 Hct 22.3 % (35.4-49) L 11/24/19 07:15 MCV 92.4 fl (80-96) 11/24/19 07:15 MCH 30.9 pg (25.7-33.7) 11/24/19 07:15 MCHC 33.5 g/dl (32.0-35.9) 11/24/19 07:15 RDW 14.9 % (11.9-15.9) 11/24/19 07:15 Plt Count 210 K/MM3 (134-434) D 11/24/19 07:15 MPV 7.7 fl (7.5-11.1) 11/24/19 07:15 Absolute Neuts (auto) 4.7 K/mm3 (1.5-8.0) 11/22/19 06:11 Neutrophils % 70.0 % (42.8-82.8) 11/22/19 06:11 Lymphocytes % 16.2 % (8-40) D 11/22/19 06:11 Monocytes % 10.7 % (3.8-10.2) H 11/22/19 06:11 Eosinophils % 2.6 % (0-4.5) 11/22/19 06:11 Basophils % 0.5 % (0-2.0) 11/22/19 06:11 Nucleated RBC % 0 % (0-0) 11/22/19 06:11 PT with INR 15.90 SEC (9.7-13.0) H 11/24/19 07:15 INR 1.34 (0.83-1.09) H 11/24/19 07:15 PTT (Actin FS) 27.0 SECONDS (25.2-36.5) 11/19/19 05:30 Sodium 136 mmol/L (136-145) 11/24/19 07:15 Potassium 4.1 mmol/L (3.5-5.1) 11/24/19 07:15 Chloride 100 mmol/L (98-107) 11/24/19 07:15 Carbon Dioxide 30 mmol/L (21-32) 11/24/19 07:15 Anion Gap 6 MMOL/L (8-16) L 11/24/19 07:15 BUN 17.2 mg/dL (7-18) 11/24/19 07:15 Creatinine 0.8 mg/dL (0.55-1.3) 11/24/19 07:15 Est GFR (CKD-EPI)AfAm 104.90 11/24/19 07:15 Est GFR (CKD-EPI)NonAf 90.51 11/24/19 07:15 POC Glucometer 142 UNITS (80-120) 11/22/19 18:29 Random Glucose 111 mg/dL (74-106) H 11/24/19 07:15 Lactic Acid 1.2 mmol/L (0.4-2.0) 11/20/19 19:50 Calcium 7.8 mg/dL (8.5-10.1) L 11/24/19 07:15 Phosphorus 2.0 mg/dL (2.5-4.9) L 11/22/19 06:11 Magnesium 2.0 mg/dL (1.8-2.4) 11/22/19 06:11 Total Bilirubin 0.6 mg/dL (0.2-1) 11/24/19 07:15 AST 52 U/L (15-37) H 11/24/19 07:15 ALT 39 U/L (13-61) 11/24/19 07:15 Alkaline Phosphatase 194 U/L (45-117) H 11/24/19 07:15 Total Protein 5.8 g/dl (6.4-8.2) L 11/24/19 07:15 Albumin 1.7 g/dl (3.4-5.0) L 11/24/19 07:15 Urine Color Yellow 11/21/19 06:00 Urine Appearance Clear 11/21/19 06:00 Urine pH 5.5 (5.0-8.0) 11/21/19 06:00 Ur Specific [place] 1.015 (1.010-1.035) 11/21/19 06:00 Urine Protein Negative (NEGATIVE) 11/21/19 06:00 Urine Glucose (UA) Negative (NEGATIVE) 11/21/19 06:00 Urine Ketones Negative (NEGATIVE) 11/21/19 06:00 Urine Blood Negative (NEGATIVE) 11/21/19 06:00 Urine Nitrite Negative (NEGATIVE) 11/21/19 06:00 Urine Bilirubin Negative (NEGATIVE) 11/21/19 06:00 Urine Urobilinogen 1.0 mg/dL (0.2-1.0) 11/21/19 06:00 Ur Leukocyte Esterase Negative (NEGATIVE) 11/21/19 06:00 Vancomycin Pre-Dose 11.5 ug/ml (5-10) H 11/18/19 12:30 Phenytoin 14.9 11/18/19 12:30 COVID-19 (CRYSTAL) Not detected (Not Detected) 11/17/19 23:50 Blood Type A POSITIVE 11/24/19 12:00 Antibody Screen Negative 11/24/19 12:00 Crossmatch See Detail 11/24/19 12:00 Active Medications Acetaminophen (Tylenol -) 650 mg PO Q6H PRN PRN Reason: Fever Or Pain Last Admin: 11/22/19 22:13 Dose: 650 mg Documented by: Al Hydroxide/Mg Hydroxide (Mylanta Oral Suspension -) 30 ml PO Q4H PRN PRN Reason: DYSPEPSIA Aspirin (Ecotrin -) 81 mg PO BID [facility] Last Admin: 11/24/19 10:07 Dose: 81 mg Documented by: Budesonide/Formoterol Fumarate (Symbicort 80/4.5mcg -) 2 puff IH BID [facility] Last Admin: 11/24/19 10:07 Dose: 2 puff Documented by: Enoxaparin Sodium (Lovenox -) 100 mg SQ BID [facility] Last Admin: 11/24/19 10:06 Dose: 100 mg Documented by: Finasteride (Proscar -) 5 mg PO DAILY [facility] Last Admin: 11/24/19 10:06 Dose: 5 mg Documented by: Guaifenesin (Robitussin -) 10 ml PO Q4H PRN PRN Reason: COUGH Last Admin: 11/23/19 15:00 Dose: 10 ml Documented by: Hydrochlorothiazide (Hctz -) 12.5 mg PO DAILY [facility] Last Admin: 11/24/19 10:06 Dose: 12.5 mg Documented by: Hydromorphone HCl (Hydromorphone 10 Mg/50 Ml-Ns) 10 mg PRODUCTION SUPPORT DEVELOPER PRODUCTION SUPPORT DEVELOPER [facility]; Protocol Stop: 11/25/19 19:54 Last Admin: 11/24/19 13:00 Dose: Not Given Documented by: Piperacillin Sod/Tazobactam (Sod 3.375 gm/ Dextrose) 50 mls @ 100 mls/hr IVPB Q8H-IV [facility]; Protocol Last Admin: 11/24/19 10:06 Dose: 100 mls/hr Documented by: Magnesium Hydroxide (Milk Of Magnesia -) 30 ml PO PRN PRN PRN Reason: CONSTIPATION Ondansetron HCl (Zofran Injection) 4 mg IVPUSH Q6H PRN PRN Reason: NAUSEA Pantoprazole Sodium (Protonix -) 40 mg PO DAILY [facility] Last Admin: 11/24/19 10:06 Dose: 40 mg Documented by: Phenytoin Sodium (Dilantin -) 500 mg PO HS [facility] Last Admin: 11/23/19 21:34 Dose: 500 mg Documented by: Senna/Docusate Sodium (Pericolace -) 2 tablet PO BID [facility] Last Admin: 11/24/19 10:07 Dose: Not Given Documented by: Tamsulosin HCl (Flomax -) 0.4 mg PO DAILY@0830 [facility] Last Admin: 11/24/19 08:28 Dose: 0.4 mg Documented by: Warfarin Sodium (Coumadin -) 2.5 mg PO DAILY@1800 [facility] Last Admin: 11/23/19 17:11 Dose: 2.5 mg Documented by: ASSESSMENT/PLAN: 68 year old M PMH L TKR 2019, DVT 2017 (on coumadin s/p IVC filter), HTN, hypercholesterolemia, GERD, seizure disorder, BPH, OA who presented with worsening L knee pain and swelling with drainage for several weeks. Pt admitted for infected L knee. He is s/p I&D of L knee, L TKA hardware removal, tibial tubercle osteotomy, and placement of L knee abx spacer on 11/19/2019. L infected periprosthetic knee - Pt POD #5 for I&D left knee, removal L TKA hardware, placement left knee antibiotic spacer, tibial tubercle osteotomy - Monitor drain output, I/O's - Tissue cx growing proteus, prevotella disiens, serratia, enterococcus faecalis. Ucx negative. Bcx negative thus far. - c/w Zosyn, started 11/20/2019. Today is day 4. - Ortho following. Recommended OOBTC, evaluation for drain removal, and PICC line at some point. Strict NWB RLE. Plans for dressing change. C/w incentive spirometry. - ID consulted. Recommended c/w abx and wound care. - Anesthesia following. Pain control w/ PRODUCTION SUPPORT DEVELOPER. Evaluation to switch to PO. - c/w bowel regimen - bridging lovenox to warfarin, INR 1.34. 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 f/u INR. C/w ASA 81mg - abdominal Xray did not detect IVC filter, however, not all can be detected with Xray - Heme/onc consulted. Recommended c/w AC and eventual bridge to warfarin. - F/u vascular as outpatient HTN, Hypercholesterolemia - c/w ASA 81, HCTZ 12.5 qD - resume home dose antihypertensives when possible BPH -c/w home tamsulosin, finasteride FEN - No standing fluids -Monitor and replete electrolytes -Regular diet Ppx - DVT: Lovenox - GI: PPI Dispo: monitor in telemetry. Visit type - Emergency Visit Emergency Visit: Yes ED Registration Date: 11/17/19 Care time: The patient presented to the Emergency Department on the above date and was hospitalized for further evaluation of their emergent condition. - New Patient This patient is new to me today: No - Critical Care Critical Care patient: No - Medication Review Med list reviewed for High Risk Meds patients 65 and older: Yes ATTENDING PHYSICIAN STATEMENT I saw and evaluated the patient. I reviewed the resident's note and discussed the case with the resident. I agree with the resident's findings and plan as documented. SUBJECTIVE: OBJECTIVE: ASSESSMENT AND PLAN:
[2019-11-24] MEDS ORDERED: PCA PUMP NR ONE (16:09)
--- NOTE | 2019-11-24 17:21 | PN ---
Teaching Attending Note Name of Resident: Dilcia Gonzalez ATTENDING PHYSICIAN STATEMENT I saw and evaluated the patient. I reviewed the resident's note and discussed the case with the resident. I agree with the resident's findings and plan as documented. This patient is new to me on 11/24/2019, surgeon who operated on his left knee Dr Langston SUBJECTIVE: Patient is lying in bed with NAD OBJECTIVE: Vital Signs Temperature 98.6 F 11/24/19 14:00 Pulse Rate 110 H 11/24/19 14:00 Respiratory Rate 20 11/24/19 14:00 Blood Pressure 133/63 11/24/19 14:00 O2 Sat by Pulse Oximetry (%) 97 11/24/19 10:00 PE: PER resident's note CBCD WBC 8.4 K/mm3 (4.0-10.0) 11/24/19 07:15 RBC 2.41 M/mm3 (4.00-5.60) L 11/24/19 07:15 Hgb 7.5 GM/dL (11.7-16.9) L 11/24/19 07:15 Hct 22.3 % (35.4-49) L 11/24/19 07:15 MCV 92.4 fl (80-96) 11/24/19 07:15 MCHC 33.5 g/dl (32.0-35.9) 11/24/19 07:15 RDW 14.9 % (11.9-15.9) 11/24/19 07:15 Plt Count 210 K/MM3 (134-434) D 11/24/19 07:15 MPV 7.7 fl (7.5-11.1) 11/24/19 07:15 CMP Sodium 136 mmol/L (136-145) 11/24/19 07:15 Potassium 4.1 mmol/L (3.5-5.1) 11/24/19 07:15 Chloride 100 mmol/L (98-107) 11/24/19 07:15 Carbon Dioxide 30 mmol/L (21-32) 11/24/19 07:15 Anion Gap 6 MMOL/L (8-16) L 11/24/19 07:15 BUN 17.2 mg/dL (7-18) 11/24/19 07:15 Creatinine 0.8 mg/dL (0.55-1.3) 11/24/19 07:15 Random Glucose 111 mg/dL (74-106) H 11/24/19 07:15 Calcium 7.8 mg/dL (8.5-10.1) L 11/24/19 07:15 Total Bilirubin 0.6 mg/dL (0.2-1) 11/24/19 07:15 AST 52 U/L (15-37) H 11/24/19 07:15 ALT 39 U/L (13-61) 11/24/19 07:15 Alkaline Phosphatase 194 U/L (45-117) H 11/24/19 07:15 Total Protein 5.8 g/dl (6.4-8.2) L 11/24/19 07:15 Albumin 1.7 g/dl (3.4-5.0) L 11/24/19 07:15 Current Medications Generic Name Dose Route Start Last Admin Trade Name Freq PRN Reason Stop Dose Admin Acetaminophen 650 mg 11/20/19 17:24 11/22/19 22:13 Tylenol - PO 650 mg Q6H PRN Administration Fever Or Pain Al Hydroxide/Mg Hydroxide 30 ml 11/19/19 13:49 Mylanta Oral Suspension - PO Q4H PRN DYSPEPSIA Aspirin 81 mg 11/19/19 22:00 11/24/19 10:07 Ecotrin - PO 81 mg BID [facility]NA[facility] Administration Budesonide/Formoterol Fumarate 2 puff 11/19/19 22:00 11/24/19 10:07 Symbicort 80/4.5mcg - IH 2 puff BID [facility]ERNAN[facility] Administration Enoxaparin Sodium 100 mg 11/20/19 22:00 11/24/19 10:06 Lovenox - SQ 100 mg BID [facility] Administration Finasteride 5 mg 11/20/19 10:00 11/24/19 10:06 Proscar - PO 5 mg DAILY [facility] Administration Guaifenesin 10 ml 11/23/19 14:38 11/23/19 15:00 Robitussin - PO 10 ml Q4H PRN Administration COUGH Hydrochlorothiazide 12.5 mg 11/20/19 10:00 11/24/19 10:06 Hctz - PO 12.5 mg DAILY [facility] Administration Piperacillin Sod/Tazobactam 50 mls @ 100 mls/hr 11/20/19 13:30 11/24/19 10:06 Sod 3.375 gm/ Dextrose IVPB 100 mls/hr Q8H-IV [facility] Administration Protocol Magnesium Hydroxide 30 ml 11/19/19 13:49 Milk Of Magnesia - PO PRN PRN CONSTIPATION Ondansetron HCl 4 mg 11/19/19 13:49 Zofran Injection IVPUSH Q6H PRN NAUSEA Oxycodone HCl 5 mg 11/24/19 15:48 Roxicodone - PO Q4H PRN PAIN LEVEL 6-10 Pantoprazole Sodium 40 mg 11/20/19 10:00 11/24/19 10:06 Protonix - PO 40 mg DAILY [facility] Administration Phenytoin Sodium 500 mg 11/19/19 22:00 11/23/19 21:34 Dilantin - PO 500 mg HS [facility] Administration Senna/Docusate Sodium 2 tablet 11/19/19 22:00 11/24/19 10:07 Pericolace - PO Not Given BID [facility] Tamsulosin HCl 0.4 mg 11/20/19 08:30 11/24/19 08:28 Flomax - PO 0.4 mg DAILY@0830 [facility] Administration Warfarin Sodium 2.5 mg 11/23/19 18:00 11/23/19 17:11 Coumadin - PO 2.5 mg DAILY@1800 [facility] Administration Home Medications Medication Instructions Recorded Phenytoin Sodium Extended 500 mg PO HS #90 capsule 07/15/18 Warfarin Na [Coumadin -] 3 mg PO HS 07/24/18 Amlodipine-Olmesartan 10-40 mg 1 tab PO DAILY 11/11/19 Enoxaparin [Lovenox -] 60 mg SQ Q12H 11/11/19 Finasteride [Proscar] 5 mg PO DAILY 11/11/19 Fluticasone/Vilanterol [Breo 1 each IH HS 11/11/19 Ellipta 100-25 Mcg INH] Hydrochlorothiazide [Hctz -] 12.5 mg PO DAILY 11/11/19 Metoprolol Succinate 50 mg PO DAILY 11/11/19 Tamsulosin HCl [Flomax] 0.4 mg PO DAILY 11/11/19 Tramadol HCl 50 mg PO TID 11/18/19 Microbiology 11/18/19 18:31 Tissue-Other Gram Stain - Final 11/18/19 18:31 Tissue-Other Tissue Culture - Final Proteus Mirabilis 11/18/19 18:31 Tissue-Other Anaerobic Culture - Final Prevotella Disiens 11/20/19 19:35 Blood - Peripheral Venous Blood Culture - Preliminary NO GROWTH OBTAINED AFTER 72 HOURS, INCUBATION TO CONTINUE FOR 2 DAYS. 11/20/19 19:50 Blood - Peripheral Venous Blood Culture - Preliminary NO GROWTH OBTAINED AFTER 72 HOURS, INCUBATION TO CONTINUE FOR 2 DAYS. 11/18/19 18:31 Tissue-Other LIDIA Preparation - Preliminary 11/18/19 18:31 Tissue-Other Fungal Culture - Preliminary 11/18/19 18:31 Tissue-Other AFB Smear Concentration - Preliminary 11/18/19 18:31 Tissue-Other Mycobacterial Culture - Preliminary 11/17/19 23:20 Blood - Peripheral Venous Blood Culture - Final NO GROWTH AFTER 5 DAYS INCUBATION 11/17/19 23:20 Blood - Peripheral Venous Blood Culture - Final NO GROWTH AFTER 5 DAYS INCUBATION 11/18/19 16:37 Knee - Left AFB Smear Concentration - Final 11/18/19 16:37 Knee - Left Mycobacterial Culture - Preliminary 11/21/19 06:00 Urine - Urine Clean Catch Urine Culture - Final NO GROWTH OBTAINED 11/18/19 16:37 Knee - Left Gram Stain - Final 11/18/19 16:37 Knee - Left Wound Culture - Final Proteus Mirabilis 11/17/19 23:20 Knee - Left Gram Stain - Final 11/17/19 23:20 Knee - Left Wound Culture - Final Serratia Marcescens Enterococcus Faecalis Proteus Mirabilis 11/18/19 19:51 Urine - Urine - Catheterized Urine Culture - Final NO GROWTH OBTAINED 11/18/19 16:37 Knee - Left LIDIA Preparation - Preliminary 11/18/19 16:37 Knee - Left Fungal Culture - Preliminary ASSESSMENT AND PLAN: This patient is a 68yom with PMHx of Left TKR 2019, DVT 2017 (on coumadin s/p IVC filter), HTN, HLD, GERD, seizure disorder, BPH, OA who presented with worsening L knee pain and swelling with drainage for several weeks. Pt is admitted for infected L knee. He is s/p I&D of L knee, L TKA hardware removal, tibial tubercle osteotomy, and placement of L knee abx spacer on 11/19/2019. # POD#5 s/p I&D with removal of hardware of left knee due to having L infected periprosthetic knee s/p placement left knee antibiotic spacer on IV zosyn , ID on the case # Seizure disorder continue dilantin # H/o DVT ; Duplex lower extremity shows L popliteal vein DVT that is old, but persistent, c/w bridging lovenox to warfarin until therapeutic. f/u INR. C/w ASA 81mg #Hx of HTN, HLD, continue home meds # Hx of BPH continue home tamsulosin, finasteride DVT Px: Lovenox GI Px: PPI
[2019-11-24] MEDS: WARFARIN NA 2.5 MG TABLET PO SCH (17:31)
[2019-11-24] MEDS: oxyCODONE HCL 5 MG TABLET PO PRN (20:55)
[2019-11-24] MEDS: ACETAMINOPHEN 325 MG TABLET (FP) PO PRN (20:55)
[2019-11-24] MEDS: PHENYTOIN NA EXTENDED 100 MG CAPSULE (FP) PO SCH (22:52)
[2019-11-25] MEDS ORDERED: DEXTROSE 5%-WATER - 50 ML IVPB ONE ×3 (02:17→18:20)
[2019-11-25] MEDS ORDERED: PIPERACILLIN/TAZOBACTAM 3.375 GM VIAL IVPB ONE ×3 (02:17→18:20)
[2019-11-25] MEDS: PIPERACILLIN/TAZOB 3.375 GM 3.375 GM in DEXTROSE 5%-WATER - 50 ML IVPB SCH ×3 (02:29→18:22)
[2019-11-25] MEDS: oxyCODONE HCL 5 MG TABLET PO PRN ×3 (06:19→21:50)
[2019-11-25] MEDS: ACETAMINOPHEN 325 MG TABLET (FP) PO PRN ×2 (06:22→21:50)
[2019-11-25 07:31] LABS: HEMATOCRIT 23.4 % (35.4-49); HEMOGLOBIN 7.8 GM/dL (11.7-16.9); MCH 30.3 pg (25.7-33.7); MCHC 33.3 g/dl (32.0-35.9); MEAN CELL VOLUME 90.8 fl (80-96); MEAN PLT VOLUME 7.8 fl (7.5-11.1); PLATELET COUNT 233 K/MM3 (134-434); RBC 2.58 M/mm3 (4.00-5.60); RDW 14.9 % (11.9-15.9); WHITE BLOOD COUNT 9.5 K/mm3 (4.0-10.0)
[2019-11-25 07:37] LABS: ALBUMIN 1.6 g/dl (3.4-5.0); BILIRUBIN,TOTAL 0.6 mg/dL (0.2-1); BLOOD UREA NITROGEN 15.2 mg/dL (7-18); CALCIUM 7.9 mg/dL (8.5-10.1); CREATININE 0.8 mg/dL (0.55-1.3); POTASSIUM 3.7 mmol/L (3.5-5.1); TOT PROT 5.8 g/dl (6.4-8.2)
[2019-11-25] MEDS ORDERED: oxyCODONE HCL 5 MG TABLET PO PRN (08:01)
[2019-11-25] MEDS: HYDROCHLOROTHIAZIDE 12.5 MG CAPSULE (FP) PO SCH (09:32)
[2019-11-25] MEDS: ENOXAPARIN NA (PORCINE) 100 MG/1 ML DISP.SYRIN SQ SCH ×2 (09:32→21:51)
[2019-11-25] MEDS: TAMSULOSIN HCL 0.4 MG CAP PO SCH (09:32)
[2019-11-25] MEDS: ASPIRIN COATED 81 MG TABLET.EC PO SCH ×2 (09:32→21:50)
[2019-11-25] MEDS: SENNOSIDES/DOCUSATE COMBO (SENNA PLUS) TABLET (UD) PO SCH ×3 (09:33→21:51)
[2019-11-25] MEDS: FINASTERIDE 5 MG TABLET (FP) PO SCH (09:35)
[2019-11-25] MEDS: PANTOPRAZOLE 40 MG TABLET PO SCH (09:35)
[2019-11-25] MEDS: BUDESONIDE/FORMETEROL FUMARATE 80/4.5 mcg INHALER IH SCH ×2 (09:44→21:51)
--- NOTE | 2019-11-25 10:58 | PN ---
Progress Note (short form) - Note Progress Note: Surgery POD #7 1. I&D left knee. 2. Removal L TKA hardware. 3. Placement left knee antibiotic spacer. 4. Tibial tubercle osteotomy Patient seen and examined on AM rounds. He received 1 unit PRBC yesterday. His DISASTER OR DAMAGE CONTROL SPECIALIST has been stopped and his pain is now being managed with PO medication. He is tolerating his diet and voiding without limitation. He has only been OOB once. He denies any dizziness, blurred vision, CP, SOB, N/V, fever or chills. Vital Signs Temp 98.5 F 11/25/19 10:00 Pulse 102 H 11/25/19 10:00 Resp 20 11/25/19 10:00 BP 144/84 11/25/19 10:00 Pulse Ox 98 11/25/19 10:00 Intake & Output 11/24/19 11/24/19 11/25/19 11:59 23:59 11:59 Intake Total 1150 450 350 Output Total 955 415 7 Balance 195 35 343 Intake: IV 1000 saline lock #2 1000 IVPB 50 100 Oral 100 350 Packed Cells 350 Output: Drainage 55 15 7 left knee #1 30 10 5 left knee #2 25 5 2 Urine 900 400 Void 900 400 Other: Voiding Method Urinal Urinal Urinal # Unmeasured Voids Void 2 Bowel Movement No No CBC, BMP 11/25/19 06:33 11/25/19 06:33 Microbiology 11/20/19 19:35 Blood - Peripheral Venous Blood Culture - Preliminary NO GROWTH OBTAINED AFTER 96 HOURS, INCUBATION TO CONTINUE FOR 1 DAYS. 11/20/19 19:50 Blood - Peripheral Venous Blood Culture - Preliminary NO GROWTH OBTAINED AFTER 96 HOURS, INCUBATION TO CONTINUE FOR 1 DAYS. 11/18/19 18:31 Tissue-Other Gram Stain - Final 11/18/19 18:31 Tissue-Other Tissue Culture - Final Proteus Mirabilis 11/18/19 18:31 Tissue-Other Anaerobic Culture - Final Prevotella Disiens 11/18/19 18:31 Tissue-Other LIDIA Preparation - Preliminary 11/18/19 18:31 Tissue-Other Fungal Culture - Preliminary 11/18/19 18:31 Tissue-Other AFB Smear Concentration - Preliminary 11/18/19 18:31 Tissue-Other Mycobacterial Culture - Preliminary 11/17/19 23:20 Blood - Peripheral Venous Blood Culture - Final NO GROWTH AFTER 5 DAYS INCUBATION 11/17/19 23:20 Blood - Peripheral Venous Blood Culture - Final NO GROWTH AFTER 5 DAYS INCUBATION 11/18/19 16:37 Knee - Left AFB Smear Concentration - Final 11/18/19 16:37 Knee - Left Mycobacterial Culture - Preliminary 11/21/19 06:00 Urine - Urine Clean Catch Urine Culture - Final NO GROWTH OBTAINED 11/18/19 16:37 Knee - Left Gram Stain - Final 11/18/19 16:37 Knee - Left Wound Culture - Final Proteus Mirabilis 11/17/19 23:20 Knee - Left Gram Stain - Final 11/17/19 23:20 Knee - Left Wound Culture - Final Serratia Marcescens Enterococcus Faecalis Proteus Mirabilis 11/18/19 19:51 Urine - Urine - Catheterized Urine Culture - Final NO GROWTH OBTAINED 11/18/19 16:37 Knee - Left LIDIA Preparation - Preliminary 11/18/19 16:37 Knee - Left Fungal Culture - Preliminary PE: A&Ox3, NAD Unlabored resp on RA Left LE: incision c/d/i with danny and suture in situ, Diffuse edema with +joint effusion, surrounding tissue intact with no tracking erythema, no obvious collection or active d/c. Drains x2 in good position with minimal output each <15cc in 24hrs. Soft thigh, LE compartments soft, supple with minimal tenderness to palpation. Foot and toes warm and well perfused with +2 dp pulse. + dorsi/plantar flexion. Right LE compartments soft, supple and non-tender with +2 DP pulses Problem List - Problems (1) Infection of prosthetic left knee joint Assessment/Plan: A/P: 68 yo male POD #7 s/p I&D left knee. Removal L TKA hardware. Placement left knee antibiotic spacer. Tibial tubercle osteotomy. Prosthetic joint infection with acute blood loss anemia, asymptomatic. -s/p trasfusion with H&H stable - Trend daily labs -Elevate Left LE while in bed -Pain control PO meds adjusted this morning -DVT PPx: -hematology reviewed and appreciated- chronic L popliteal vein DVT with no acute intervention-follow up with vascular as outpatient. -Chemical: Lovenox, Warfarin: bridge to therapeutic INR (2-3) -Mechanical: BARB's, SCD's. -Incentive spirometry q15 min. -Pack knee with Ice- keep dressings dry -PT/OT/Rehab, OOB. and OOB to chair for meals -Strict NWB RLE. -IV Abx per ID -Tissue cx growing proteus, prevotella disiens, serratia, enterococcus faecalis. Ucx negative. Bcx negative - Patient will need PICC line upon d/c -f/u drains output. -Diet as tolerated. -Care per medical hospitalist Evaluation and plan discussed with Dr Hilario Langston Code(s): T84.54XA - INFECT/INFLM REACTION DUE TO INTERNAL LEFT KNEE PROSTH, INIT (2) Left leg DVT Code(s): I82.402 - ACUTE EMBOLISM AND THOMBOS UNSP DEEP VEINS OF L LOW EXTREM (3) Wound dehiscence Code(s): T81.30XA - DISRUPTION OF WOUND, UNSPECIFIED, INITIAL ENCOUNTER
--- NOTE | 2019-11-25 13:10 | PN ---
Progress Note, Physician History of Present Illness: stable no new issues drain still draining - Current Medication List Current Medications: Active Medications Acetaminophen (Tylenol -) 650 mg PO Q6H PRN PRN Reason: Fever Or Pain Last Admin: 11/25/19 06:22 Dose: 650 mg Documented by: Al Hydroxide/Mg Hydroxide (Mylanta Oral Suspension -) 30 ml PO Q4H PRN PRN Reason: DYSPEPSIA Aspirin (Ecotrin -) 81 mg PO BID [facility] Last Admin: 11/25/19 09:32 Dose: 81 mg Documented by: Budesonide/Formoterol Fumarate (Symbicort 80/4.5mcg -) 2 puff IH BID [facility] Last Admin: 11/25/19 09:44 Dose: 2 puff Documented by: Enoxaparin Sodium (Lovenox -) 100 mg SQ BID [facility] Last Admin: 11/25/19 09:32 Dose: 100 mg Documented by: Finasteride (Proscar -) 5 mg PO DAILY [facility] Last Admin: 11/25/19 09:35 Dose: 5 mg Documented by: Guaifenesin (Robitussin -) 10 ml PO Q4H PRN PRN Reason: COUGH Last Admin: 11/23/19 15:00 Dose: 10 ml Documented by: Hydrochlorothiazide (Hctz -) 12.5 mg PO DAILY [facility] Last Admin: 11/25/19 09:32 Dose: 12.5 mg Documented by: Hydromorphone HCl (Dilaudid Vial -) 2 mg IVPUSH Q6H PRN PRN Reason: PAIN LEVEL 7 - 10 Piperacillin Sod/Tazobactam (Sod 3.375 gm/ Dextrose) 50 mls @ 100 mls/hr IVPB Q8H-IV [facility]; Protocol Last Admin: 11/25/19 09:30 Dose: 100 mls/hr Documented by: Magnesium Hydroxide (Milk Of Magnesia -) 30 ml PO PRN PRN PRN Reason: CONSTIPATION Metoprolol Succinate (Toprol Xl -) 50 mg PO DAILY [facility] Last Admin: 11/25/19 09:33 Dose: 50 mg Documented by: Ondansetron HCl (Zofran Injection) 4 mg IVPUSH Q6H PRN PRN Reason: NAUSEA Oxycodone HCl (Roxicodone -) 10 mg PO Q4H PRN PRN Reason: PAIN LEVEL 6-10 Last Admin: 11/25/19 11:06 Dose: 10 mg Documented by: Oxycodone HCl (Roxicodone -) 5 mg PO Q4H PRN PRN Reason: PAIN LEVEL 1-5 Pantoprazole Sodium (Protonix -) 40 mg PO DAILY [facility] Last Admin: 11/25/19 09:35 Dose: 40 mg Documented by: Phenytoin Sodium (Dilantin -) 500 mg PO HS [facility] Last Admin: 11/24/19 22:52 Dose: 500 mg Documented by: Senna/Docusate Sodium (Pericolace -) 2 tablet PO BID [facility] Last Admin: 11/25/19 09:33 Dose: 2 tablet Documented by: Tamsulosin HCl (Flomax -) 0.4 mg PO DAILY@0830 [facility] Last Admin: 11/25/19 09:32 Dose: 0.4 mg Documented by: Warfarin Sodium (Coumadin -) 2.5 mg PO DAILY@1800 [facility] Last Admin: 11/24/19 17:31 Dose: 2.5 mg Documented by: - Objective Vital Signs: Vital Signs Temperature 98.5 F 11/25/19 10:00 Pulse Rate 102 H 11/25/19 10:00 Respiratory Rate 20 11/25/19 10:00 Blood Pressure 144/84 11/25/19 10:00 O2 Sat by Pulse Oximetry (%) 98 11/25/19 10:00 Constitutional: Yes: No Distress, Calm Cardiovascular: Yes: S1, S2 Respiratory: Yes: Regular, CTA Bilaterally Gastrointestinal: Yes: Normal Bowel Sounds, Soft Musculoskeletal: Yes: WNL Extremities: Yes: Other Wound/Incision: Yes: Dressing Dry and Intact, Other (hemovac in place) Neurological: Yes: Alert, Oriented Psychiatric: Yes: Alert, Oriented Labs: CBC, BMP 11/25/19 06:33 11/25/19 06:33 INR, PTT INR 1.34 (0.83-1.09) H 11/24/19 07:15 Assessment/Plan Problem List - Problems (1) Infection of prosthetic left knee joint Code(s): T84.54XA - INFECT/INFLM REACTION DUE TO INTERNAL LEFT KNEE PROSTH, INIT (2) Left leg DVT Code(s): I82.402 - ACUTE EMBOLISM AND THOMBOS UNSP DEEP VEINS OF L LOW EXTREM (3) Post-operative complication Code(s): T81.9XXA - UNSPECIFIED COMPLICATION OF PROCEDURE, INITIAL ENCOUNTER (4) Anemia Code(s): D64.9 - ANEMIA, UNSPECIFIED (5) BPH (benign prostatic hyperplasia) Code(s): N40.0 - BENIGN PROSTATIC HYPERPLASIA WITHOUT LOWER URINRY TRACT SYMP (6) DVT (deep venous thrombosis) Code(s): I82.409 - ACUTE EMBOLISM AND THOMBOS UNSP DEEP VN UNSP LOWER EXTREMITY wound infection plan continue abx plan is for 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
--- NOTE | 2019-11-25 16:53 | PN ---
Teaching Attending Note Name of Resident: Dilcia Gonzalez ATTENDING PHYSICIAN STATEMENT I saw and evaluated the patient. I reviewed the resident's note and discussed the case with the resident. I agree with the resident's findings and plan as documented. SUBJECTIVE: Patient is comfortable with NAd , no fever or chill, no shortness of breath OBJECTIVE: Vital Signs Temperature 98.8 F 11/25/19 14:05 Pulse Rate 99 H 11/25/19 14:05 Respiratory Rate 18 11/25/19 14:05 Blood Pressure 130/65 11/25/19 14:05 O2 Sat by Pulse Oximetry (%) 98 11/25/19 10:00 PE; per resident's note CBCD WBC 9.5 K/mm3 (4.0-10.0) 11/25/19 06:33 RBC 2.58 M/mm3 (4.00-5.60) L 11/25/19 06:33 Hgb 7.8 GM/dL (11.7-16.9) L 11/25/19 06:33 Hct 23.4 % (35.4-49) L 11/25/19 06:33 MCV 90.8 fl (80-96) 11/25/19 06:33 MCHC 33.3 g/dl (32.0-35.9) 11/25/19 06:33 RDW 14.9 % (11.9-15.9) 11/25/19 06:33 Plt Count 233 K/MM3 (134-434) 11/25/19 06:33 MPV 7.8 fl (7.5-11.1) 11/25/19 06:33 CMP Sodium 137 mmol/L (136-145) 11/25/19 06:33 Potassium 3.7 mmol/L (3.5-5.1) 11/25/19 06:33 Chloride 102 mmol/L (98-107) 11/25/19 06:33 Carbon Dioxide 30 mmol/L (21-32) 11/25/19 06:33 Anion Gap 4 MMOL/L (8-16) L 11/25/19 06:33 BUN 15.2 mg/dL (7-18) 11/25/19 06:33 Creatinine 0.8 mg/dL (0.55-1.3) 11/25/19 06:33 Random Glucose 127 mg/dL (74-106) H 11/25/19 06:33 Calcium 7.9 mg/dL (8.5-10.1) L 11/25/19 06:33 Total Bilirubin 0.6 mg/dL (0.2-1) 11/25/19 06:33 AST 49 U/L (15-37) H 11/25/19 06:33 ALT 41 U/L (13-61) 11/25/19 06:33 Alkaline Phosphatase 196 U/L (45-117) H 11/25/19 06:33 Total Protein 5.8 g/dl (6.4-8.2) L 11/25/19 06:33 Albumin 1.6 g/dl (3.4-5.0) L 11/25/19 06:33 Current Medications Generic Name Dose Route Start Last Admin Trade Name Freq PRN Reason Stop Dose Admin Acetaminophen 650 mg 11/20/19 17:24 11/25/19 06:22 Tylenol - PO 650 mg Q6H PRN Administration Fever Or Pain Al Hydroxide/Mg Hydroxide 30 ml 11/19/19 13:49 Mylanta Oral Suspension - PO Q4H PRN DYSPEPSIA Aspirin 81 mg 11/19/19 22:00 11/25/19 09:32 Ecotrin - PO 81 mg BID [facility]ERNA[facility]DA Administration Budesonide/Formoterol Fumarate 2 puff 11/19/19 22:00 11/25/19 09:44 Symbicort 80/4.5mcg - IH 2 puff BID [facility]ERNA[facility] Administration Enoxaparin Sodium 100 mg 11/20/19 22:00 11/25/19 09:32 Lovenox - SQ 100 mg BID [facility] Administration Finasteride 5 mg 11/20/19 10:00 11/25/19 09:35 Proscar - PO 5 mg DAILY [facility] Administration Guaifenesin 10 ml 11/23/19 14:38 11/23/19 15:00 Robitussin - PO 10 ml Q4H PRN Administration COUGH Hydrochlorothiazide 12.5 mg 11/20/19 10:00 11/25/19 09:32 Hctz - PO 12.5 mg DAILY FERNA[facility]DA Administration Hydromorphone HCl 2 mg 11/25/19 08:00 Dilaudid Vial - IVPUSH Q6H PRN PAIN LEVEL 7 - 10 Piperacillin Sod/Tazobactam 50 mls @ 100 mls/hr 11/20/19 13:30 11/25/19 09:30 Sod 3.375 gm/ Dextrose IVPB 100 mls/hr Q8H-IV [facility]ERNAN[facility] Administration Protocol Magnesium Hydroxide 30 ml 11/19/19 13:49 Milk Of Magnesia - PO PRN PRN CONSTIPATION Metoprolol Succinate 50 mg 11/25/19 10:00 11/25/19 09:33 Toprol Xl - PO 50 mg DAILY [facility]NA[facility] Administration Ondansetron HCl 4 mg 11/19/19 13:49 Zofran Injection IVPUSH Q6H PRN NAUSEA Oxycodone HCl 10 mg 11/25/19 08:01 11/25/19 11:06 Roxicodone - PO 10 mg Q4H PRN Administration PAIN LEVEL 6-10 Oxycodone HCl 5 mg 11/25/19 08:01 Roxicodone - PO Q4H PRN PAIN LEVEL 1-5 Pantoprazole Sodium 40 mg 11/20/19 10:00 11/25/19 09:35 Protonix - PO 40 mg DAILY [facility] Administration Phenytoin Sodium 500 mg 11/19/19 22:00 11/24/19 22:52 Dilantin - PO 500 mg HS [facility] Administration Senna/Docusate Sodium 2 tablet 11/19/19 22:00 11/25/19 09:33 Pericolace - PO 2 tablet BID [facility] Administration Tamsulosin HCl 0.4 mg 11/20/19 08:30 11/25/19 09:32 Flomax - PO 0.4 mg DAILY@0830 [facility] Administration Warfarin Sodium 2.5 mg 11/23/19 18:00 11/24/19 17:31 Coumadin - PO 2.5 mg DAILY@1800 [facility] Administration Home Medications Medication Instructions Recorded Phenytoin Sodium Extended 500 mg PO HS #90 capsule 07/15/18 Warfarin Na [Coumadin -] 3 mg PO HS 07/24/18 Amlodipine-Olmesartan 10-40 mg 1 tab PO DAILY 11/11/19 Enoxaparin [Lovenox -] 60 mg SQ Q12H 11/11/19 Finasteride [Proscar] 5 mg PO DAILY 11/11/19 Fluticasone/Vilanterol [Breo 1 each IH HS 11/11/19 Ellipta 100-25 Mcg INH] Hydrochlorothiazide [Hctz -] 12.5 mg PO DAILY 11/11/19 Metoprolol Succinate 50 mg PO DAILY 11/11/19 Tamsulosin HCl [Flomax] 0.4 mg PO DAILY 11/11/19 Tramadol HCl 50 mg PO TID 11/18/19 Microbiology 11/20/19 19:35 Blood - Peripheral Venous Blood Culture - Preliminary NO GROWTH OBTAINED AFTER 96 HOURS, INCUBATION TO CONTINUE FOR 1 DAYS. 11/20/19 19:50 Blood - Peripheral Venous Blood Culture - Preliminary NO GROWTH OBTAINED AFTER 96 HOURS, INCUBATION TO CONTINUE FOR 1 DAYS. 11/18/19 18:31 Tissue-Other Gram Stain - Final 11/18/19 18:31 Tissue-Other Tissue Culture - Final Proteus Mirabilis 11/18/19 18:31 Tissue-Other Anaerobic Culture - Final Prevotella Disiens 11/18/19 18:31 Tissue-Other LIDIA Preparation - Preliminary 11/18/19 18:31 Tissue-Other Fungal Culture - Preliminary 11/18/19 18:31 Tissue-Other AFB Smear Concentration - Preliminary 11/18/19 18:31 Tissue-Other Mycobacterial Culture - Preliminary 11/17/19 23:20 Blood - Peripheral Venous Blood Culture - Final NO GROWTH AFTER 5 DAYS INCUBATION 11/17/19 23:20 Blood - Peripheral Venous Blood Culture - Final NO GROWTH AFTER 5 DAYS INCUBATION 11/18/19 16:37 Knee - Left AFB Smear Concentration - Final 11/18/19 16:37 Knee - Left Mycobacterial Culture - Preliminary 11/21/19 06:00 Urine - Urine Clean Catch Urine Culture - Final NO GROWTH OBTAINED 11/18/19 16:37 Knee - Left Gram Stain - Final 11/18/19 16:37 Knee - Left Wound Culture - Final Proteus Mirabilis 11/17/19 23:20 Knee - Left Gram Stain - Final 11/17/19 23:20 Knee - Left Wound Culture - Final Serratia Marcescens Enterococcus Faecalis Proteus Mirabilis 11/18/19 19:51 Urine - Urine - Catheterized Urine Culture - Final NO GROWTH OBTAINED 11/18/19 16:37 Knee - Left LIDIA Preparation - Preliminary 11/18/19 16:37 Knee - Left Fungal Culture - Preliminary ASSESSMENT AND PLAN: This patient is a 68yom with PMHx of Left TKR 2019, DVT 2017 (on coumadin s/p IVC filter), HTN, HLD, GERD, seizure disorder, BPH, OA who presented with worsening L knee pain and swelling with drainage for several weeks. Pt is admitted for infected L knee. He is s/p I&D of L knee, L TKA hardware removal, tibial tubercle osteotomy, and placement of L knee abx spacer on 11/19/2019. 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 INR is 1.34, will give coumadin 5mg tonight , continue ASA 81mg #Hx of HTN, HLD, continue home meds # Hx of BPH continue home tamsulosin, finasteride DVT Px: Lovenox 100mg bid bridgeing with warfarin GI Px: PPI
--- NOTE | 2019-11-25 17:09 | PN ---
Physical Exam: SUBJECTIVE: Patient seen and examined. No acute events overnight. Pt reports pain being controlled with medications. Denies fevers, chills, SOB, C/P, nausea, vomiting, diarrhea, numbness or tingling. OBJECTIVE: Vital Signs Period Temp Pulse Resp BP Sys/Gee Pulse Ox Last 24 Hr 98.2 F-99.9 F 99-120 18-20 130-169/33-100 96-98 GENERAL: AAOx3, not in acute distress HEENT: NCAT, EOMI, moist mucus membranes. CARDIAC: regular rate and rhythm. S1, S2 present. No murmurs. RESPIRATORY: CTA b/l, no wheezes. ABDOMEN: Obese, non-distended, non-tender to palpation. Normoactive bowel sounds. EXTREMITIES: LLE bandaged and immobilized. 2 drains visible next to leg. Draining sanguineous fluid. SKIN: Warm, dry. NEUROLOGICAL: Sensation and movement intact. Moves toes spontaneously. CBC, BMP 11/25/19 06:33 11/25/19 06:33 Active Medications Acetaminophen (Tylenol -) 650 mg PO Q6H PRN PRN Reason: Fever Or Pain Last Admin: 11/25/19 06:22 Dose: 650 mg Documented by: Al Hydroxide/Mg Hydroxide (Mylanta Oral Suspension -) 30 ml PO Q4H PRN PRN Reason: DYSPEPSIA Aspirin (Ecotrin -) 81 mg PO BID [facility] Last Admin: 11/25/19 09:32 Dose: 81 mg Documented by: Budesonide/Formoterol Fumarate (Symbicort 80/4.5mcg -) 2 puff IH BID [facility] Last Admin: 11/25/19 09:44 Dose: 2 puff Documented by: Enoxaparin Sodium (Lovenox -) 100 mg SQ BID [facility] Last Admin: 11/25/19 09:32 Dose: 100 mg Documented by: Finasteride (Proscar -) 5 mg PO DAILY [facility] Last Admin: 11/25/19 09:35 Dose: 5 mg Documented by: Guaifenesin (Robitussin -) 10 ml PO Q4H PRN PRN Reason: COUGH Last Admin: 11/23/19 15:00 Dose: 10 ml Documented by: Hydrochlorothiazide (Hctz -) 12.5 mg PO DAILY [facility] Last Admin: 09/09/20 09:32 Dose: 12.5 mg Documented by: Hydromorphone HCl (Dilaudid Vial -) 2 mg IVPUSH Q6H PRN PRN Reason: PAIN LEVEL 7 - 10 Piperacillin Sod/Tazobactam (Sod 3.375 gm/ Dextrose) 50 mls @ 100 mls/hr IVPB Q8H-IV [facility]; Protocol Last Admin: 11/25/19 09:30 Dose: 100 mls/hr Documented by: Magnesium Hydroxide (Milk Of Magnesia -) 30 ml PO PRN PRN PRN Reason: CONSTIPATION Metoprolol Succinate (Toprol Xl -) 50 mg PO DAILY [facility] Last Admin: 11/25/19 09:33 Dose: 50 mg Documented by: Ondansetron HCl (Zofran Injection) 4 mg IVPUSH Q6H PRN PRN Reason: NAUSEA Oxycodone HCl (Roxicodone -) 10 mg PO Q4H PRN PRN Reason: PAIN LEVEL 6-10 Last Admin: 11/25/19 11:06 Dose: 10 mg Documented by: Oxycodone HCl (Roxicodone -) 5 mg PO Q4H PRN PRN Reason: PAIN LEVEL 1-5 Pantoprazole Sodium (Protonix -) 40 mg PO DAILY [facility] Last Admin: 11/25/19 09:35 Dose: 40 mg Documented by: Phenytoin Sodium (Dilantin -) 500 mg PO HS [facility] Last Admin: 11/24/19 22:52 Dose: 500 mg Documented by: Senna/Docusate Sodium (Pericolace -) 2 tablet PO BID [facility] Last Admin: 11/25/19 09:33 Dose: 2 tablet Documented by: Tamsulosin HCl (Flomax -) 0.4 mg PO DAILY@0830 [facility] Last Admin: 11/25/19 09:32 Dose: 0.4 mg Documented by: Warfarin Sodium (Coumadin -) 2.5 mg PO DAILY@1800 [facility] Last Admin: 11/24/19 17:31 Dose: 2.5 mg Documented by: ASSESSMENT/PLAN: 68 year old M PMH L TKR 2019, DVT 2017 (on coumadin s/p IVC filter), HTN, hypercholesterolemia, GERD, seizure disorder, BPH, OA who presented with worsening L knee pain and swelling with drainage for several weeks. Pt admitted for infected L knee. He is s/p I&D of L knee, L TKA hardware removal, tibial tubercle osteotomy, and placement of L knee abx spacer on 11/19/2019. L infected periprosthetic knee - Pt POD #6 for I&D left knee, removal L TKA hardware, placement left knee antibiotic spacer, tibial tubercle osteotomy - Monitor drain output, I/O's - Tissue cx growing proteus, prevotella disiens, serratia, enterococcus faecalis. Ucx negative. Bcx negative thus far. - c/w Zosyn, started 11/20/2019. Today is day 6. - Ortho following. Recommended OOBTC, evaluation for drain removal, and PICC li ne at some point. Strict NWB RLE. Plans for dressing change. C/w incentive spirometry. - ID consulted. Recommended c/w abx and wound care. - c/w oxycodone PRN, hydromorphone PRN - c/w bowel regimen - bridging lovenox to warfarin, INR 1.34. - c/w zofran - c/w symbicort, guaifenesin Anemia -Transfused 1 U pRBC yesterday. Hb 7.5-->7.8. Due to inappropriate response, transfuse 1 U pRBC today. 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 f/u INR. C/w ASA 81mg - abdominal Xray did not detect IVC filter, however, not all can be detected with Xray - Heme/onc consulted. Recommended c/w AC and eventual bridge to warfarin. - F/u vascular as outpatient HTN, Hypercholesterolemia - c/w ASA 81, HCTZ 12.5 qD - resume home dose antihypertensives when possible BPH -c/w home tamsulosin, finasteride FEN - No standing fluids -Monitor and replete electrolytes -Regular diet Ppx - DVT: Lovenox - GI: PPI Dispo: monitor in telemetry. Visit type - Emergency Visit Emergency Visit: Yes ED Registration Date: 11/17/19 Care time: The patient presented to the Emergency Department on the above date and was hospitalized for further evaluation of their emergent condition. - New Patient This patient is new to me today: No - Critical Care Critical Care patient: No - Medication Review Med list reviewed for High Risk Meds patients 65 and older: Yes ATTENDING PHYSICIAN STATEMENT I saw and evaluated the patient. I reviewed the resident's note and discussed the case with the resident. I agree with the resident's findings and plan as documented. SUBJECTIVE: OBJECTIVE: ASSESSMENT AND PLAN:
[2019-11-25] MEDS: WARFARIN NA 2.5 MG TABLET PO SCH (18:23)
[2019-11-25] MEDS ORDERED: WARFARIN NA 2.5 MG TABLET PO ONE (19:09)
[2019-11-25] MEDS ORDERED: WARFARIN NA 5 MG TABLET PO SCH (19:09)
[2019-11-25] MEDS: PHENYTOIN NA EXTENDED 100 MG CAPSULE (FP) PO SCH (21:50)
[2019-11-25 23:44] LABS: HEMATOCRIT 24.4 % (35.4-49); HEMOGLOBIN 8.1 GM/dL (11.7-16.9); MCH 30.3 pg (25.7-33.7); MCHC 33.1 g/dl (32.0-35.9); MEAN CELL VOLUME 91.5 fl (80-96); MEAN PLT VOLUME 7.6 fl (7.5-11.1); PLATELET COUNT 247 K/MM3 (134-434); RBC 2.67 M/mm3 (4.00-5.60); RDW 15.6 % (11.9-15.9)
[2019-11-26] MEDS ORDERED: DEXTROSE 5%-WATER - 50 ML IVPB ONE ×3 (01:37→16:43)
[2019-11-26] MEDS ORDERED: PIPERACILLIN/TAZOBACTAM 3.375 GM VIAL IVPB ONE ×3 (01:37→16:43)
[2019-11-26] MEDS: PIPERACILLIN/TAZOB 3.375 GM 3.375 GM in DEXTROSE 5%-WATER - 50 ML IVPB SCH ×3 (01:44→17:00)
[2019-11-26] MEDS: oxyCODONE HCL 5 MG TABLET PO PRN ×4 (06:11→21:05)
[2019-11-26 07:31] LABS: HEMATOCRIT 25.4 % (35.4-49); HEMOGLOBIN 8.4 GM/dL (11.7-16.9); MCH 30.1 pg (25.7-33.7); MEAN CELL VOLUME 91.1 fl (80-96); MEAN PLT VOLUME 7.2 fl (7.5-11.1); PLATELET COUNT 270 K/MM3 (134-434); RBC 2.78 M/mm3 (4.00-5.60); RDW 16.1 % (11.9-15.9)
[2019-11-26 07:50] LABS: BLOOD UREA NITROGEN 13.3 mg/dL (7-18); CREATININE 0.8 mg/dL (0.55-1.3); POTASSIUM 3.8 mmol/L (3.5-5.1)
[2019-11-26 08:18] LABS: INR 1.33 (0.83-1.09); PROTHROMBIN TIME (PATIENT) 15.7 SEC (9.7-13.0)
[2019-11-26] MEDS: BUDESONIDE/FORMETEROL FUMARATE 80/4.5 mcg INHALER IH SCH ×2 (09:35→21:05)
[2019-11-26] MEDS: TAMSULOSIN HCL 0.4 MG CAP PO SCH (09:35)
[2019-11-26] MEDS: PANTOPRAZOLE 40 MG TABLET PO SCH (09:35)
[2019-11-26] MEDS: ASPIRIN COATED 81 MG TABLET.EC PO SCH (09:35)
[2019-11-26] MEDS: HYDROCHLOROTHIAZIDE 12.5 MG CAPSULE (FP) PO SCH (09:35)
[2019-11-26] MEDS: ENOXAPARIN NA (PORCINE) 100 MG/1 ML DISP.SYRIN SQ SCH ×2 (09:36→21:05)
[2019-11-26] MEDS: SENNOSIDES/DOCUSATE COMBO (SENNA PLUS) TABLET (UD) PO SCH ×2 (09:36→21:05)
[2019-11-26] MEDS: FINASTERIDE 5 MG TABLET (FP) PO SCH (09:36)
--- NOTE | 2019-11-26 09:40 | PN ---
Progress Note, Physician History of Present Illness: post op doing well no issues pain - Current Medication List Current Medications: Active Medications Acetaminophen (Tylenol -) 650 mg PO Q6H PRN PRN Reason: Fever Or Pain Last Admin: 11/25/19 21:50 Dose: 650 mg Documented by: Al Hydroxide/Mg Hydroxide (Mylanta Oral Suspension -) 30 ml PO Q4H PRN PRN Reason: DYSPEPSIA Aspirin (Ecotrin -) 81 mg PO BID [facility] Last Admin: 11/26/19 09:35 Dose: 81 mg Documented by: Budesonide/Formoterol Fumarate (Symbicort 80/4.5mcg -) 2 puff IH BID [facility] Last Admin: 11/26/19 09:35 Dose: 2 puff Documented by: Enoxaparin Sodium (Lovenox -) 100 mg SQ BID [facility] Last Admin: 11/26/19 09:36 Dose: 100 mg Documented by: Finasteride (Proscar -) 5 mg PO DAILY [facility] Last Admin: 11/26/19 09:36 Dose: 5 mg Documented by: Guaifenesin (Robitussin -) 10 ml PO Q4H PRN PRN Reason: COUGH Last Admin: 11/23/19 15:00 Dose: 10 ml Documented by: Hydrochlorothiazide (Hctz -) 12.5 mg PO DAILY [facility] Last Admin: 11/26/19 09:35 Dose: 12.5 mg Documented by: Hydromorphone HCl (Dilaudid Vial -) 2 mg IVPUSH Q6H PRN PRN Reason: PAIN LEVEL 7 - 10 Piperacillin Sod/Tazobactam (Sod 3.375 gm/ Dextrose) 50 mls @ 100 mls/hr IVPB Q8H-IV [facility]; Protocol Last Admin: 11/26/19 09:36 Dose: 100 mls/hr Documented by: Magnesium Hydroxide (Milk Of Magnesia -) 30 ml PO PRN PRN PRN Reason: CONSTIPATION Metoprolol Succinate (Toprol Xl -) 50 mg PO DAILY [facility] Last Admin: 11/26/19 09:35 Dose: 50 mg Documented by: Ondansetron HCl (Zofran Injection) 4 mg IVPUSH Q6H PRN PRN Reason: NAUSEA Oxycodone HCl (Roxicodone -) 10 mg PO Q4H PRN PRN Reason: PAIN LEVEL 6-10 Last Admin: 11/26/19 06:11 Dose: 10 mg Documented by: Oxycodone HCl (Roxicodone -) 5 mg PO Q4H PRN PRN Reason: PAIN LEVEL 1-5 Pantoprazole Sodium (Protonix -) 40 mg PO DAILY [facility] Last Admin: 11/26/19 09:35 Dose: 40 mg Documented by: Phenytoin Sodium (Dilantin -) 500 mg PO HS [facility] Last Admin: 11/25/19 21:50 Dose: 500 mg Documented by: Senna/Docusate Sodium (Pericolace -) 2 tablet PO BID [facility] Last Admin: 11/26/19 09:36 Dose: Not Given Documented by: Tamsulosin HCl (Flomax -) 0.4 mg PO DAILY@0830 [facility] Last Admin: 11/26/19 09:35 Dose: 0.4 mg Documented by: Warfarin Sodium (Coumadin -) 5 mg PO DAILY@1800 [facility] - Objective Vital Signs: Vital Signs Temperature 99.7 F H 11/26/19 09:33 Pulse Rate 107 H 11/26/19 09:33 Respiratory Rate 11/26/19 09:33 Blood Pressure 139/90 11/26/19 09:33 O2 Sat by Pulse Oximetry (%) 97 11/26/19 09:33 Constitutional: Yes: No Distress, Calm Cardiovascular: Yes: S1, S2 Respiratory: Yes: Regular, CTA Bilaterally Gastrointestinal: Yes: Normal Bowel Sounds, Soft Musculoskeletal: Yes: WNL Extremities: Yes: Other Wound/Incision: Yes: Dressing Dry and Intact, Other (drain in place) Neurological: Yes: Alert, Oriented Psychiatric: Yes: Alert, Oriented Labs: CBC, BMP 11/26/19 06:48 11/26/19 06:00 INR, PTT INR 1.33 (0.83-1.09) H 11/26/19 06:48 Assessment/Plan Problem List - Problems (1) Infection of prosthetic left knee joint Code(s): T84.54XA - INFECT/INFLM REACTION DUE TO INTERNAL LEFT KNEE PROSTH, INIT (2) Left leg DVT Code(s): I82.402 - ACUTE EMBOLISM AND THOMBOS UNSP DEEP VEINS OF L LOW EXTREM (3) Post-operative complication Code(s): T81.9XXA - UNSPECIFIED COMPLICATION OF PROCEDURE, INITIAL ENCOUNTER (4) Anemia Code(s): D64.9 - ANEMIA, UNSPECIFIED (5) BPH (benign prostatic hyperplasia) Code(s): N40.0 - BENIGN PROSTATIC HYPERPLASIA WITHOUT LOWER URINRY TRACT SYMP (6) DVT (deep venous thrombosis) Code(s): I82.409 - ACUTE EMBOLISM AND THOMBOS UNSP DEEP VN UNSP LOWER EXTREMITY wound infection plan continue abx wound care monitor drainage 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
[2019-11-26] MEDS: ACETAMINOPHEN 325 MG TABLET (FP) PO PRN ×2 (11:48→17:01)
--- NOTE | 2019-11-26 12:26 | PN ---
Progress Note (short form) - Note Progress Note: ORTHOPAEDIC SURGERY Per Dr. Hilario Langston, waiting on ID recommendations regarding superintendent terminal IV ABX. Once we have that, a PICC line can then per placed per IR/Ronald Problem List - Problems (1) Infection of prosthetic left knee joint Code(s): T84.54XA - INFECT/INFLM REACTION DUE TO INTERNAL LEFT KNEE PROSTH, INIT (2) HTN (hypertension) Code(s): I10 - ESSENTIAL (PRIMARY) HYPERTENSION (3) Obesity (BMI 30-39.9) Code(s): E66.9 - OBESITY, UNSPECIFIED (4) Left leg DVT Code(s): I82.402 - ACUTE EMBOLISM AND THOMBOS UNSP DEEP VEINS OF L LOW EXTREM (5) DVT (deep venous thrombosis) Code(s): I82.409 - ACUTE EMBOLISM AND THOMBOS UNSP DEEP VN UNSP LOWER EXTREMITY
[2019-11-26] MEDS: LACTOBACILLUS ACIDOPHILUS 1 TABLET PO SCH (14:22)
--- NOTE | 2019-11-26 15:50 | PN ---
Teaching Attending Note Name of Resident: Dilcia Gonzalez ATTENDING PHYSICIAN STATEMENT I saw and evaluated the patient. I reviewed the resident's note and discussed the case with the resident. I agree with the resident's findings and plan as documented. SUBJECTIVE: Patient has NAD OBJECTIVE: Vital Signs Temperature 99.7 F H 11/26/19 14:00 Pulse Rate 102 H 11/26/19 14:00 Respiratory Rate 20 11/26/19 14:00 Blood Pressure 149/83 11/26/19 14:00 O2 Sat by Pulse Oximetry (%) 97 11/26/19 09:33 pe; PER RESIDENT'S NOTE, LEFT LEG DOUBLE THE SIZE OF THE RIGHT LEG CBCD WBC 10.0 K/mm3 (4.0-10.0) 11/26/19 06:48 RBC 2.78 M/mm3 (4.00-5.60) L 11/26/19 06:48 Hgb 8.4 GM/dL (11.7-16.9) L 11/26/19 06:48 Hct 25.4 % (35.4-49) L 11/26/19 06:48 MCV 91.1 fl (80-96) 11/26/19 06:48 MCHC 33.0 g/dl (32.0-35.9) 11/26/19 06:48 RDW 16.1 % (11.9-15.9) H 11/26/19 06:48 Plt Count 270 K/MM3 (134-434) 11/26/19 06:48 MPV 7.2 fl (7.5-11.1) L 11/26/19 06:48 CMP Sodium 135 mmol/L (136-145) L 11/26/19 06:00 Potassium 3.8 mmol/L (3.5-5.1) 11/26/19 06:00 Chloride 99 mmol/L (98-107) 11/26/19 06:00 Carbon Dioxide 31 mmol/L (21-32) 11/26/19 06:00 Anion Gap 5 MMOL/L (8-16) L 11/26/19 06:00 BUN 13.3 mg/dL (7-18) 11/26/19 06:00 Creatinine 0.8 mg/dL (0.55-1.3) 11/26/19 06:00 Random Glucose 108 mg/dL (74-106) H 11/26/19 06:00 Calcium 8.0 mg/dL (8.5-10.1) L 11/26/19 06:00 Total Bilirubin 0.6 mg/dL (0.2-1) 11/25/19 06:33 AST 49 U/L (15-37) H 11/25/19 06:33 ALT 41 U/L (13-61) 11/25/19 06:33 Alkaline Phosphatase 196 U/L (45-117) H 11/25/19 06:33 Total Protein 5.8 g/dl (6.4-8.2) L 11/25/19 06:33 Albumin 1.6 g/dl (3.4-5.0) L 11/25/19 06:33 Microbiology 11/20/19 19:35 Blood - Peripheral Venous Blood Culture - Final NO GROWTH AFTER 5 DAYS INCUBATION 11/20/19 19:50 Blood - Peripheral Venous Blood Culture - Final NO GROWTH AFTER 5 DAYS INCUBATION 11/18/19 18:31 Tissue-Other Gram Stain - Final 11/18/19 18:31 Tissue-Other Tissue Culture - Final Proteus Mirabilis 11/18/19 18:31 Tissue-Other Anaerobic Culture - Final Prevotella Disiens 11/18/19 18:31 Tissue-Other LIDIA Preparation - Preliminary 11/18/19 18:31 Tissue-Other Fungal Culture - Preliminary 11/18/19 18:31 Tissue-Other AFB Smear Concentration - Preliminary 11/18/19 18:31 Tissue-Other Mycobacterial Culture - Preliminary 11/17/19 23:20 Blood - Peripheral Venous Blood Culture - Final NO GROWTH AFTER 5 DAYS INCUBATION 11/17/19 23:20 Blood - Peripheral Venous Blood Culture - Final NO GROWTH AFTER 5 DAYS INCUBATION 11/18/19 16:37 Knee - Left AFB Smear Concentration - Final 11/18/19 16:37 Knee - Left Mycobacterial Culture - Preliminary 11/21/19 06:00 Urine - Urine Clean Catch Urine Culture - Final NO GROWTH OBTAINED 11/18/19 16:37 Knee - Left Gram Stain - Final 11/18/19 16:37 Knee - Left Wound Culture - Final Proteus Mirabilis 11/17/19 23:20 Knee - Left Gram Stain - Final 11/17/19 23:20 Knee - Left Wound Culture - Final Serratia Marcescens Enterococcus Faecalis Proteus Mirabilis 11/18/19 19:51 Urine - Urine - Catheterized Urine Culture - Final NO GROWTH OBTAINED 11/18/19 16:37 Knee - Left LIDIA Preparation - Preliminary 11/18/19 16:37 Knee - Left Fungal Culture - Preliminary ASSESSMENT AND PLAN: This patient is a 68yom with PMHx of Left TKR 2019, DVT 2017 (on coumadin s/p IVC filter), HTN, HLD, GERD, seizure disorder, BPH, OA who presented with worsening L knee pain and swelling with drainage for several weeks. Pt is admitted for infected L knee. He is s/p I&D of L knee, L TKA hardware removal, tibial tubercle osteotomy, and placement of L knee abx spacer on 11/19/2019. # POD#7 s/p I&D with removal of hardware of left knee due to having L infected periprosthetic knee s/p placement left knee antibiotic spacer on IV zosyn , ID on the case # Seizure disorder continue dilantin , dilantin level 7.9 # H/o DVT: Duplex lower extremity shows L popliteal vein DVT that is old, but persistent, c/w bridging lovenox to warfarin until therapeutic. will follow daily INR , will give coumadin 5mg tonight ,on Lovenox 100mg sq bid, aspirin is dc'd by surgical team. #Hx of HTN, HLD, continue home meds # Hx of BPH continue home tamsulosin, finasteride DVT Px: Lovenox 100mg bid bridgeing with warfarin , daily INR GI Px: PPI
--- NOTE | 2019-11-26 16:08 | PN.HO ---
Progress Note (short form) - Note Progress Note: Called by primary team regarding anticoagulation. Patient continues to bleed from surgical site with downtrend in hemoglobin. Patient has had a chronic left lower extremity DVT for 4 years and on anticoagulation with warfarin. Although patient is most likely not high risk from his chronic DVT, his current clinical scenario (post orthopedic surgery) makes him high risk for acute DVT. If there is concern that therapeutic anticoagulation is causing significant bleeding, it can be stopped however I would suggest continuing some kind of prophylactic chemical anticoagulation as patient is high risk from surgery. Would also recommend vascular surgery input as patient may need IVC filter in the future if he cannot be anticoagulated therapeutically (pt does report hx of IVC filter although recent abd imaging from Nov 19 does not reveal one)
[2019-11-26 16:31] VITALS: BMI 34.8
--- NOTE | 2019-11-26 17:16 | PN ---
Physical Exam: SUBJECTIVE: Patient seen and examined. Stated he was in pain. Rated 7/10 upon my evaluation. Informed patient that he may ask for oral pain medication as needed. OBJECTIVE: Vital Signs Period Temp Pulse Resp BP Sys/Gee Pulse Ox Last 24 Hr 98.5 F-99.9 F 102-108 20-20 120-156/78-90 95-98 ENERAL: AAOx3, not in acute distress HEENT: NCAT, EOMI, moist mucus membranes. CARDIAC: regular rate and rhythm. S1, S2 present. No murmurs. RESPIRATORY: CTA b/l, no wheezes. ABDOMEN: Obese, non-distended, non-tender to palpation. Normoactive bowel sounds. EXTREMITIES: LLE bandaged and immobilized. 2 drains visible next to leg. Draining sanguineous fluid. SKIN: Warm, dry. NEUROLOGICAL: Sensation and movement intact. Moves toes spontaneously. CBC, BMP 11/26/19 06:48 11/26/19 06:00 Active Medications Acetaminophen (Tylenol -) 650 mg PO Q6H PRN PRN Reason: Fever Or Pain Last Admin: 11/26/19 17:01 Dose: 650 mg Documented by: Al Hydroxide/Mg Hydroxide (Mylanta Oral Suspension -) 30 ml PO Q4H PRN PRN Reason: DYSPEPSIA Last Admin: 11/26/19 11:47 Dose: 30 ml Documented by: Budesonide/Formoterol Fumarate (Symbicort 80/4.5mcg -) 2 puff IH BID [facility] Last Admin: 11/26/19 09:35 Dose: 2 puff Documented by: Enoxaparin Sodium (Lovenox -) 100 mg SQ BID [facility] Last Admin: 11/26/19 09:36 Dose: 100 mg Documented by: Finasteride (Proscar -) 5 mg PO DAILY [facility] Last Admin: 11/26/19 09:36 Dose: 5 mg Documented by: Guaifenesin (Robitussin -) 10 ml PO Q4H PRN PRN Reason: COUGH Last Admin: 11/23/19 15:00 Dose: 10 ml Documented by: Hydrochlorothiazide (Hctz -) 12.5 mg PO DAILY [facility] Last Admin: 11/26/19 09:35 Dose: 12.5 mg Documented by: Hydromorphone HCl (Dilaudid Vial -) 2 mg IVPUSH Q6H PRN PRN Reason: PAIN LEVEL 7 - 10 Piperacillin Sod/Tazobactam (Sod 3.375 gm/ Dextrose) 50 mls @ 100 mls/hr IVPB Q8H-IV [facility]; Protocol Last Admin: 11/26/19 17:00 Dose: 100 mls/hr Documented by: Lactobacillus Acidophilus (Bacid -) 1 tab PO DAILY [facility] Last Admin: 11/26/19 14:22 Dose: 1 tab Documented by: Magnesium Hydroxide (Milk Of Magnesia -) 30 ml PO PRN PRN PRN Reason: CONSTIPATION Metoprolol Succinate (Toprol Xl -) 50 mg PO DAILY [facility] Last Admin: 11/26/19 09:35 Dose: 50 mg Documented by: Ondansetron HCl (Zofran Injection) 4 mg IVPUSH Q6H PRN PRN Reason: NAUSEA Oxycodone HCl (Roxicodone -) 10 mg PO Q4H PRN PRN Reason: PAIN LEVEL 6-10 Last Admin: 11/26/19 17:01 Dose: 10 mg Documented by: Oxycodone HCl (Roxicodone -) 5 mg PO Q4H PRN PRN Reason: PAIN LEVEL 1-5 Pantoprazole Sodium (Protonix -) 40 mg PO DAILY [facility] Last Admin: 11/26/19 09:35 Dose: 40 mg Documented by: Phenytoin Sodium (Dilantin -) 500 mg PO HS [facility] Last Admin: 11/25/19 21:50 Dose: 500 mg Documented by: Senna/Docusate Sodium (Pericolace -) 2 tablet PO BID [facility] Last Admin: 11/26/19 09:36 Dose: Not Given Documented by: Tamsulosin HCl (Flomax -) 0.4 mg PO DAILY@0830 [facility] Last Admin: 11/26/19 09:35 Dose: 0.4 mg Documented by: Warfarin Sodium (Coumadin -) 5 mg PO DAILY@1800 [facility] Last Admin: 11/26/19 17:00 Dose: 5 mg Documented by: ASSESSMENT/PLAN: 68 year old M PMH L TKR 2019, DVT 2017 (on coumadin s/p IVC filter), HTN, hypercholesterolemia, GERD, seizure disorder, BPH, OA who presented with worsening L knee pain and swelling with drainage for several weeks. Pt admitted for infected L knee. He is s/p I&D of L knee, L TKA hardware removal, tibial tubercle osteotomy, and placement of L knee abx spacer on 11/19/2019. L infected periprosthetic knee - Pt POD #7 for I&D left knee, removal L TKA hardware, placement left knee antibiotic spacer, tibial tubercle osteotomy - Monitor drain output, I/O's - Tissue cx growing proteus, prevotella disiens, serratia, enterococcus faecalis. Ucx negative. Bcx negative thus far. - c/w Zosyn, started 11/20/2019. Today is day 7. - Ortho following. Currently awaiting on ID recommendations regarding fiscal specialist IV ABX. PICC line can then can be placed per IR/[place]. -Upon dressing change, positive hemostasis. Pressure dressing applied. - ID consulted. Recommended c/w abx and wound care. - c/w oxycodone PRN, hydromorphone PRN - c/w bowel regimen - bridging lovenox to warfarin, INR 1.33. - c/w zofran - c/w symbicort, guaifenesin Anemia -Transfused 1 pRBC overnight. Hb 8.4. Continue to monitor. - f/u CBC - Heme consulted. Recommended due to post-op, pt at high risk for acute DVT. If concern that therapeutic anticoagulation is causing significant bleeding, it can be stopped. However, recommended prophylactic chemical anticoagulation b/c pt high risk. Would also recommend vascular surgery input as patient may need IVC filter in the future. (KUB 11/19 did not show IVC). Seizure disorder -c/w dilantin 500 qHS H/o DVT - Duplex lower extremity shows L popliteal vein DVT that is old, but persistent - c/w bridging lovenox to warfarin until therapeutic. f/u INR. C/w ASA 81mg - abdominal Xray did not detect IVC filter, however, not all can be detected with Xray - F/u vascular as outpatient HTN, Hypercholesterolemia - c/w ASA 81, HCTZ 12.5 qD - resume home dose antihypertensives when possible BPH -c/w home tamsulosin, finasteride FEN - No standing fluids -Monitor and replete electrolytes - NPO, per surgery Ppx - DVT: Lovenox - GI: PPI Dispo: monitor in telemetry. Visit type - Emergency Visit Emergency Visit: Yes ED Registration Date: 11/17/19 Care time: The patient presented to the Emergency Department on the above date and was hospitalized for further evaluation of their emergent condition. - New Patient This patient is new to me today: No - Critical Care Critical Care patient: No - Medication Review Med list reviewed for High Risk Meds patients 65 and older: Yes ATTENDING PHYSICIAN STATEMENT I saw and evaluated the patient. I reviewed the resident's note and discussed the case with the resident. I agree with the resident's findings and plan as documented. SUBJECTIVE: OBJECTIVE: ASSESSMENT AND PLAN:
[2019-11-26 18:09] LABS: BASO % 0.3 % (0-2.0); EOS % 0.8 % (0-4.5); HEMATOCRIT 22.5 % (35.4-49); HEMOGLOBIN 7.5 GM/dL (11.7-16.9); LYMPH % 11.1 % (8-40); MCH 30.5 pg (25.7-33.7); MCHC 33.4 g/dl (32.0-35.9); MEAN CELL VOLUME 91.4 fl (80-96); MEAN PLT VOLUME 7.7 fl (7.5-11.1); MONO % 12.9 % (3.8-10.2); NEUT % 74.9 % (42.8-82.8); PLATELET COUNT 272 K/MM3 (134-434); RBC 2.46 M/mm3 (4.00-5.60); RDW 15.9 % (11.9-15.9); WHITE BLOOD COUNT 10.7 K/mm3 (4.0-10.0)
[2019-11-26] MEDS: PHENYTOIN NA EXTENDED 100 MG CAPSULE (FP) PO SCH (21:05)
[2019-11-27] MEDS ORDERED: PIPERACILLIN/TAZOBACTAM 3.375 GM VIAL IVPB ONE ×3 (00:24→15:51)
[2019-11-27] MEDS ORDERED: DEXTROSE 5%-WATER - 50 ML IVPB ONE ×3 (00:24→15:52)
[2019-11-27] MEDS: PIPERACILLIN/TAZOB 3.375 GM 3.375 GM in DEXTROSE 5%-WATER - 50 ML IVPB SCH ×2 (01:55→09:40)
[2019-11-27 06:39] LABS: INR 1.72 (0.83-1.09); PROTHROMBIN TIME (PATIENT) 20.4 SEC (9.7-13.0)
[2019-11-27 06:50] LABS: ALBUMIN 1.7 g/dl (3.4-5.0); BILIRUBIN,TOTAL 1.1 mg/dL (0.2-1); BLOOD UREA NITROGEN 17.6 mg/dL (7-18); CALCIUM 7.7 mg/dL (8.5-10.1); CREATININE 0.9 mg/dL (0.55-1.3); POTASSIUM 3.6 mmol/L (3.5-5.1)
[2019-11-27 08:52] LABS: BASO % 0.9 % (0-2.0); EOS % 0.7 % (0-4.5); HEMATOCRIT 19.6 % (35.4-49); LYMPH % 14.2 % (8-40); MCH 30.4 pg (25.7-33.7); MCHC 32.9 g/dl (32.0-35.9); MEAN CELL VOLUME 92.5 fl (80-96); MONO % 12.4 % (3.8-10.2); NEUT % 71.8 % (42.8-82.8); PLATELET COUNT 290 K/MM3 (134-434); RBC 2.12 M/mm3 (4.00-5.60); RDW 15.8 % (11.9-15.9); WHITE BLOOD COUNT 11.4 K/mm3 (4.0-10.0)
[2019-11-27] MEDS: HYDROCHLOROTHIAZIDE 12.5 MG CAPSULE (FP) PO SCH (09:04)
[2019-11-27] MEDS: PANTOPRAZOLE 40 MG TABLET PO SCH (09:04)
[2019-11-27] MEDS: FINASTERIDE 5 MG TABLET (FP) PO SCH (09:04)
[2019-11-27] MEDS: ACETAMINOPHEN 325 MG TABLET (FP) PO PRN (09:04)
[2019-11-27] MEDS: TAMSULOSIN HCL 0.4 MG CAP PO SCH (09:04)
[2019-11-27] MEDS: LACTOBACILLUS ACIDOPHILUS 1 TABLET PO SCH (09:04)
[2019-11-27] MEDS: HYDROmorphone HCl 2 MG/ML VIAL IVPUSH PRN ×2 (09:05→15:54)
[2019-11-27 09:08] LABS: HEMOGLOBIN 6.4 GM/dL (11.7-16.9)
[2019-11-27] MEDS: guaiFENesin 200 MG/10 ML 10 ML UNIT-DOSE CUPS PO PRN (09:40)
[2019-11-27] MEDS: ENOXAPARIN NA (PORCINE) 100 MG/1 ML DISP.SYRIN SQ SCH (09:40)
[2019-11-27] MEDS: BUDESONIDE/FORMETEROL FUMARATE 80/4.5 mcg INHALER IH SCH ×2 (11:33→22:31)
[2019-11-27] MEDS: SENNOSIDES/DOCUSATE COMBO (SENNA PLUS) TABLET (UD) PO SCH ×2 (11:33→22:31)
--- NOTE | 2019-11-27 13:30 | PN ---
Progress Note, Physician History of Present Illness: stable pain - Current Medication List Current Medications: Active Medications Acetaminophen (Tylenol -) 650 mg PO Q6H PRN PRN Reason: Fever Or Pain Last Admin: 11/27/19 09:04 Dose: 650 mg Documented by: Al Hydroxide/Mg Hydroxide (Mylanta Oral Suspension -) 30 ml PO Q4H PRN PRN Reason: DYSPEPSIA Last Admin: 11/26/19 11:47 Dose: 30 ml Documented by: Budesonide/Formoterol Fumarate (Symbicort 80/4.5mcg -) 2 puff IH BID [facility] Last Admin: 11/27/19 11:33 Dose: 2 puff Documented by: Enoxaparin Sodium (Lovenox -) 100 mg SQ BID [facility] Last Admin: 11/27/19 09:40 Dose: 100 mg Documented by: Finasteride (Proscar -) 5 mg PO DAILY [facility] Last Admin: 11/27/19 09:04 Dose: 5 mg Documented by: Hydromorphone HCl (Dilaudid Vial -) 2 mg IVPUSH Q6H PRN PRN Reason: PAIN LEVEL 7 - 10 Last Admin: 11/27/19 09:05 Dose: 2 mg Documented by: Piperacillin Sod/Tazobactam (Sod 3.375 gm/ Dextrose) 50 mls @ 100 mls/hr IVPB Q8H-IV [facility]; Protocol Last Admin: 11/27/19 09:40 Dose: 100 mls/hr Documented by: Lactobacillus Acidophilus (Bacid -) 1 tab PO DAILY [facility] Last Admin: 11/27/19 09:04 Dose: 1 tab Documented by: Magnesium Hydroxide (Milk Of Magnesia -) 30 ml PO PRN PRN PRN Reason: CONSTIPATION Metoprolol Succinate (Toprol Xl -) 50 mg PO DAILY [facility] Last Admin: 11/27/19 09:04 Dose: 50 mg Documented by: Oxycodone HCl (Roxicodone -) 10 mg PO Q4H PRN PRN Reason: PAIN LEVEL 6-10 Last Admin: 11/26/19 21:05 Dose: 10 mg Documented by: Oxycodone HCl (Roxicodone -) 5 mg PO Q4H PRN PRN Reason: PAIN LEVEL 1-5 Pantoprazole Sodium (Protonix -) 40 mg PO DAILY [facility] Last Admin: 11/27/19 09:04 Dose: 40 mg Documented by: Phenytoin Sodium (Dilantin -) 500 mg PO HS [facility] Last Admin: 11/26/19 21:05 Dose: 500 mg Documented by: Senna/Docusate Sodium (Pericolace -) 2 tablet PO BID [facility] Last Admin: 11/27/19 11:33 Dose: Not Given Documented by: Tamsulosin HCl (Flomax -) 0.4 mg PO DAILY@0830 [facility] Last Admin: 11/27/19 09:04 Dose: 0.4 mg Documented by: - Objective Vital Signs: Vital Signs Temperature 99.5 F 11/27/19 09:00 Pulse Rate 98 H 11/27/19 09:00 Respiratory Rate 20 11/27/19 09:00 Blood Pressure 140/80 11/27/19 09:00 O2 Sat by Pulse Oximetry (%) 97 11/27/19 09:00 Constitutional: Yes: No Distress, Calm Cardiovascular: Yes: S1, S2 Respiratory: Yes: Regular, CTA Bilaterally Gastrointestinal: Yes: Normal Bowel Sounds, Soft Musculoskeletal: Yes: WNL Extremities: Yes: WNL Neurological: Yes: Alert Psychiatric: Yes: Alert Labs: CBC, BMP 11/27/19 06:03 11/27/19 06:03 INR, PTT INR 1.72 (0.83-1.09) H 11/27/19 06:03 Assessment/Plan Problem List - Problems (1) Infection of prosthetic left knee joint Code(s): T84.54XA - INFECT/INFLM REACTION DUE TO INTERNAL LEFT KNEE PROSTH, INIT (2) Left leg DVT Code(s): I82.402 - ACUTE EMBOLISM AND THOMBOS UNSP DEEP VEINS OF L LOW EXTREM (3) Post-operative complication Code(s): T81.9XXA - UNSPECIFIED COMPLICATION OF PROCEDURE, INITIAL ENCOUNTER (4) Anemia Code(s): D64.9 - ANEMIA, UNSPECIFIED (5) BPH (benign prostatic hyperplasia) Code(s): N40.0 - BENIGN PROSTATIC HYPERPLASIA WITHOUT LOWER URINRY TRACT SYMP (6) DVT (deep venous thrombosis) Code(s): I82.409 - ACUTE EMBOLISM AND THOMBOS UNSP DEEP VN UNSP LOWER EXTREMITY wound infection plan continue abx plan is for vermin exterminator wound care 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
--- NOTE | 2019-11-27 14:19 | PN ---
Progress Note (short form) - Note Progress Note: Surgery POD #9 1. I&D left knee. 2. Removal L TKA hardware. 3. Placement left knee antibiotic spacer. 4. Tibial tubercle osteotomy Patient seen and examined on AM rounds. He continues to drop his H&H but claims to be asymptomatic. He is still having significant pain with any movement and he has not been OOB with the exception of one time. He is tolerating his diet and voiding without limitation. He denies any dizziness, blurred vision, CP, SOB, N/V, fever or chills. Vital Signs Temp 99.5 F 11/27/19 09:00 Pulse 98 H 11/27/19 09:00 Resp 20 11/27/19 09:00 BP 140/80 11/27/19 09:00 Pulse Ox 97 11/27/19 09:00 Intake & Output 11/26/19 11/27/19 11/27/19 23:59 11:59 23:59 Intake Total 870 300 Output Total 600 303 Balance 270 -3 Weight 236 lb Intake: IV 20 10 saline lock #2 20 10 IVPB 50 50 Oral 800 240 Output: Drainage 3 left knee #1 3 Urine 600 300 Void 600 300 Other: Voiding Method Urinal Urinal # Unmeasured Voids Void 1 Bowel Movement No Yes: small Height 5 ft 9 in Body Mass Index (BMI) 34.8 CBC, BMP 11/27/19 06:03 11/27/19 06:03 PE: A&Ox3, NAD Unlabored resp on RA Left LE: incision c/d/i with danny and suture in situ, Diffuse edema with significant joint effusion, surrounding tissue intact with no tracking erythema, no obvious collection or active d/c. Right Drain sites with pressure dressing and no evidence of active bleeding, left drain still in good position with minimal output and no evidence of active d/c around drain ostomy. Soft with edema but thigh, LE compartment tense but compressible with diffuse tenderness to palpation throughout. Foot and toes warm and well perfused with +2 dp pulse and PT pulses. + dorsi/plantar flexion limited 2/2 pain. Right LE compartments soft, supple and non-tender with +2 DP pulses Problem List - Problems (1) Infection of prosthetic left knee joint Assessment/Plan: A/P: 68 yo male POD #9 s/p I&D left knee. Removal L TKA hardware. Placement left knee antibiotic spacer. Tibial tubercle osteotomy. Prosthetic joint infection with acute blood loss anemia, s/p transfusions. -Transfuse 2 units PRBC NOW -hold coumadin now, continue lovenox -NPO after midnight for possible return to OR tomorrow 11/27 - Trend daily labs, include coags -Elevate Left LE while in bed -Pain control PO meds adjusted this morning -DVT PPx: -hematology reviewed and appreciated- chronic L popliteal vein DVT with no acute intervention-follow up with vascular as outpatient. -Chemical: Lovenox, -Mechanical: BARB's, SCD's. -Incentive spirometry q15 min. -Pack knee with Ice- keep dressings dry -PT/OT/Rehab, OOB. and OOB to chair for meals -Strict NWB LLE. -IV Abx per ID -recs appreciated for IVC filter placement in this setting. Tissue cx growing proteus, prevotella disiens, serratia, enterococcus faecalis. Ucx negative. Bcx negative - Patient will need PICC line upon d/c -f/u drain output. -Care per medical hospitalist Evaluation and plan discussed with Dr. Hilario Langston, Dr. Jonathan Langston, and medical team. Code(s): T84.54XA - INFECT/INFLM REACTION DUE TO INTERNAL LEFT KNEE PROSTH, INIT (2) Left leg DVT Code(s): I82.402 - ACUTE EMBOLISM AND THOMBOS UNSP DEEP VEINS OF L LOW EXTREM (3) Wound dehiscence Code(s): T81.30XA - DISRUPTION OF WOUND, UNSPECIFIED, INITIAL ENCOUNTER
--- NOTE | 2019-11-27 14:34 | PN ---
Physical Exam: SUBJECTIVE: Patient seen and examined. Pain was rated 6/10. Informed pt he can ask for pain medication every 4 hours. Pt verbalized understanding. OBJECTIVE: Vital Signs Period Temp Pulse Resp BP Sys/Gee Pulse Ox Last 24 Hr 98.4 F-99.5 F 98-119 20-20 97-145/65-82 96-98 GENERAL: AAOx3, in mild acute distress HEENT: NCAT, EOMI, moist mucus membranes. CARDIAC: regular rate and rhythm. S1, S2 present. No murmurs. RESPIRATORY: CTA b/l, no wheezes. ABDOMEN: Obese, non-distended, non-tender to palpation. Normoactive bowel sounds. EXTREMITIES: LLE bandaged and immobilized. 2 drains visible next to leg. Draining sanguineous fluid. SKIN: Warm, dry. NEUROLOGICAL: Sensation and movement intact. Moves toes spontaneously. CBC, BMP 11/27/19 06:03 11/27/19 06:03 Active Medications Acetaminophen (Tylenol -) 650 mg PO Q6H PRN PRN Reason: Fever Or Pain Last Admin: 11/27/19 09:04 Dose: 650 mg Documented by: Al Hydroxide/Mg Hydroxide (Mylanta Oral Suspension -) 30 ml PO Q4H PRN PRN Reason: DYSPEPSIA Last Admin: 11/26/19 11:47 Dose: 30 ml Documented by: Budesonide/Formoterol Fumarate (Symbicort 80/4.5mcg -) 2 puff IH BID [facility] Last Admin: 11/27/19 11:33 Dose: 2 puff Documented by: Enoxaparin Sodium (Lovenox -) 100 mg SQ BID [facility] Last Admin: 11/27/19 09:40 Dose: 100 mg Documented by: Finasteride (Proscar -) 5 mg PO DAILY [facility] Last Admin: 11/27/19 09:04 Dose: 5 mg Documented by: Hydromorphone HCl (Dilaudid Vial -) 2 mg IVPUSH Q6H PRN PRN Reason: PAIN LEVEL 7 - 10 Last Admin: 11/27/19 09:05 Dose: 2 mg Documented by: Piperacillin Sod/Tazobactam (Sod 3.375 gm/ Dextrose) 50 mls @ 100 mls/hr IVPB Q8H-IV [facility]; Protocol Last Admin: 11/27/19 09:40 Dose: 100 mls/hr Documented by: Lactobacillus Acidophilus (Bacid -) 1 tab PO DAILY [facility] Last Admin: 11/27/19 09:04 Dose: 1 tab Documented by: Magnesium Hydroxide (Milk Of Magnesia -) 30 ml PO PRN PRN PRN Reason: CONSTIPATION Metoprolol Succinate (Toprol Xl -) 50 mg PO DAILY [facility] Last Admin: 11/27/19 09:04 Dose: 50 mg Documented by: Oxycodone HCl (Roxicodone -) 10 mg PO Q4H PRN PRN Reason: PAIN LEVEL 6-10 Last Admin: 11/26/19 21:05 Dose: 10 mg Documented by: Oxycodone HCl (Roxicodone -) 5 mg PO Q4H PRN PRN Reason: PAIN LEVEL 1-5 Pantoprazole Sodium (Protonix -) 40 mg PO DAILY [facility] Last Admin: 11/27/19 09:04 Dose: 40 mg Documented by: Phenytoin Sodium (Dilantin -) 500 mg PO HS [facility] Last Admin: 11/26/19 21:05 Dose: 500 mg Documented by: Senna/Docusate Sodium (Pericolace -) 2 tablet PO BID [facility] Last Admin: 11/27/19 11:33 Dose: Not Given Documented by: Tamsulosin HCl (Flomax -) 0.4 mg PO DAILY@0830 [facility] Last Admin: 11/27/19 09:04 Dose: 0.4 mg Documented by: ASSESSMENT/PLAN: 68 year old M PMH L TKR 2019, DVT 2017 (on coumadin s/p IVC filter), HTN, hypercholesterolemia, GERD, seizure disorder, BPH, OA who presented with worsening L knee pain and swelling with drainage for several weeks. Pt admitted for infected L knee. He is s/p I&D of L knee, L TKA hardware removal, tibial tubercle osteotomy, and placement of L knee abx spacer on 11/18/2019. L infected periprosthetic knee - Pt POD #9 for I&D left knee, removal L TKA hardware, placement left knee antibiotic spacer, tibial tubercle osteotomy - Monitor drain output, I/O's - Tissue cx growing proteus, prevotella disiens, serratia, enterococcus faecalis. Ucx negative. Bcx negative thus far. - c/w Zosyn, started 11/20/2019. Today is day 8. - Ortho following. Possible return to OR on 11/27. NPO after midnight. -Currently awaiting on ID recommendations regarding extermination supervisor IV ABX. PICC line can then can be placed per IR/Pier[place]. -Upon dressing change, torrent fluid flowed ~200cc, non-pulsatile. Pressure dressing applied. - ID consulted. Recommended c/w abx and wound care. Plans for usp abx. - c/w oxycodone PRN, hydromorphone PRN for pain - c/w acetaminophen 650 q6h PRN for pain/fever - c/w bowel regimen - c/w zofran - c/w symbicort, guaifenesin - c/w probiotics Anemia - Hb 6.4, transfuse 2U pRBC, 1U FFP - f/u CBC - Heme consulted. Recommended due to post-op, pt at high risk for acute DVT. If concern that therapeutic anticoagulation is causing significant bleeding, it can be stopped. However, recommended prophylactic chemical anticoagulation b/c pt high risk. Would also recommend vascular surgery input as patient may need IVC filter in the future. (KUB 11/19 did not show IVC). -hold warfarin, hold lovenox for now. Seizure disorder -c/w dilantin 500 qHS H/o DVT - Duplex lower extremity shows L popliteal vein DVT that is old, but persistent - c/w bridging lovenox to warfarin until therapeutic. f/u INR. C/w ASA 81mg - abdominal Xray did not detect IVC filter, however, not all can be detected with Xray - F/u vascular as outpatient HTN, Hypercholesterolemia - c/w ASA 81, metoprolol succinate 50 qD - resume home dose antihypertensives when possible BPH -c/w home tamsulosin, finasteride FEN - No standing fluids - Monitor and replete electrolytes - NPO after midnight for possible return to OR 11/27. Ppx - DVT: Hold lovenox due to bleeding; SCDs - GI: PPI Dispo: monitor in telemetry. Visit type - Emergency Visit Emergency Visit: Yes ED Registration Date: 11/17/19 Care time: The patient presented to the Emergency Department on the above date and was hospitalized for further evaluation of their emergent condition. - New Patient This patient is new to me today: No - Critical Care Critical Care patient: No - Medication Review Med list reviewed for High Risk Meds patients 65 and older: Yes ATTENDING PHYSICIAN STATEMENT I saw and evaluated the patient. I reviewed the resident's note and discussed the case with the resident. I agree with the resident's findings and plan as documented. SUBJECTIVE: OBJECTIVE: ASSESSMENT AND PLAN:
[2019-11-27] MEDS ORDERED: FUROSEMIDE 40 MG/4 ML INJECTABLE VIAL IVPUSH PRN (15:42)
--- NOTE | 2019-11-27 15:57 | PN ---
Progress Note (short form) - Note Progress Note: Recurrent bleeding L knee For Iand And replacement of antibiotic spacer L femur knee tibia Booked for 8 am tomorrow Ht dropped to 6 receiving 3 units blood and 2 units FFP with 20 mg Lasix for each unit blood 2 units to be available tomorrow Will washout and replace new antibiotic spacers Patient stable with good urine output Apyrexial Swelling of knee has increased INR 1.7 but this needs to be lower in his case hypersensitive to heparin Keep NPO from midnight Hold all Lovenox Case discussed with OR staff for 8 am tomorrow
--- NOTE | 2019-11-27 16:37 | PN ---
Teaching Attending Note Name of Resident: Dilcia Gonzalez ATTENDING PHYSICIAN STATEMENT I saw and evaluated the patient. I reviewed the resident's note and discussed the case with the resident. I agree with the resident's findings and plan as documented. SUBJECTIVE: Patient is feeling ok OBJECTIVE: Vital Signs Temperature 98.2 F 11/27/19 14:00 Pulse Rate 108 H 11/27/19 14:00 Respiratory Rate 20 11/27/19 09:00 Blood Pressure 135/77 11/27/19 14:00 O2 Sat by Pulse Oximetry (%) 97 11/27/19 09:00 PE: per resident's note left knee + drainage bloody CBCD WBC 11.4 K/mm3 (4.0-10.0) H 11/27/19 06:03 RBC 2.12 M/mm3 (4.00-5.60) L 11/27/19 06:03 Hgb 6.4 GM/dL (11.7-16.9) L* 11/27/19 06:03 Hct 19.6 % (35.4-49) L 11/27/19 06:03 MCV 92.5 fl (80-96) 11/27/19 06:03 MCHC 32.9 g/dl (32.0-35.9) 11/27/19 06:03 RDW 15.8 % (11.9-15.9) 11/27/19 06:03 Plt Count 290 K/MM3 (134-434) 11/27/19 06:03 MPV 8.0 fl (7.5-11.1) 11/27/19 06:03 CMP Sodium 135 mmol/L (136-145) L 11/27/19 06:03 Potassium 3.6 mmol/L (3.5-5.1) 11/27/19 06:03 Chloride 98 mmol/L (98-107) 11/27/19 06:03 Carbon Dioxide 28 mmol/L (21-32) 11/27/19 06:03 Anion Gap 8 MMOL/L (8-16) 11/27/19 06:03 BUN 17.6 mg/dL (7-18) 11/27/19 06:03 Creatinine 0.9 mg/dL (0.55-1.3) 11/27/19 06:03 Random Glucose 127 mg/dL (74-106) H 11/27/19 06:03 Calcium 7.7 mg/dL (8.5-10.1) L 11/27/19 06:03 Total Bilirubin 1.1 mg/dL (0.2-1) H 11/27/19 06:03 AST 46 U/L (15-37) H 11/27/19 06:03 ALT 44 U/L (13-61) 11/27/19 06:03 Alkaline Phosphatase 203 U/L (45-117) H 11/27/19 06:03 Total Protein 6.0 g/dl (6.4-8.2) L 11/27/19 06:03 Albumin 1.7 g/dl (3.4-5.0) L 11/27/19 06:03 Current Medications Generic Name Dose Route Start Last Admin Trade Name Freq PRN Reason Stop Dose Admin Acetaminophen 650 mg 11/20/19 17:24 11/27/19 09:04 Tylenol - PO 650 mg Q6H PRN Administration Fever Or Pain Al Hydroxide/Mg Hydroxide 30 ml 11/19/19 13:49 11/26/19 11:47 Mylanta Oral Suspension - PO 30 ml Q4H PRN Administration DYSPEPSIA Budesonide/Formoterol Fumarate 2 puff 11/19/19 22:00 11/27/19 11:33 Symbicort 80/4.5mcg - IH 2 puff BID [facility] Administration Enoxaparin Sodium 100 mg 11/20/19 22:00 11/27/19 09:40 Lovenox - SQ 100 mg BID [facility] Administration Finasteride 5 mg 11/20/19 10:00 11/27/19 09:04 Proscar - PO 5 mg DAILY [facility] Administration Furosemide 20 mg 11/27/19 15:42 11/27/19 15:53 Lasix Injection - IVPUSH 20 mg BID@0600,1400 PRN Administration GIVE AFTER EACH UNIT OF PRBC Hydromorphone HCl 2 mg 11/25/19 08:00 11/27/19 15:54 Dilaudid Vial - IVPUSH 2 mg Q6H PRN Administration PAIN LEVEL 7 - 10 Piperacillin Sod/Tazobactam 50 mls @ 100 mls/hr 11/20/19 13:30 11/27/19 09:40 Sod 3.375 gm/ Dextrose IVPB 100 mls/hr Q8H-IV [facility] Administration Protocol Lactobacillus Acidophilus 1 tab 11/26/19 13:30 11/27/19 09:04 Bacid - PO 1 tab DAILY [facility] Administration Magnesium Hydroxide 30 ml 11/19/19 13:49 Milk Of Magnesia - PO PRN PRN CONSTIPATION Metoprolol Succinate 50 mg 11/25/19 10:00 11/27/19 09:04 Toprol Xl - PO 50 mg DAILY [facility] Administration Oxycodone HCl 10 mg 11/25/19 08:01 11/26/19 21:05 Roxicodone - PO 10 mg Q4H PRN Administration PAIN LEVEL 6-10 Oxycodone HCl 5 mg 11/25/19 08:01 Roxicodone - PO Q4H PRN PAIN LEVEL 1-5 Pantoprazole Sodium 40 mg 11/20/19 10:00 11/27/19 09:04 Protonix - PO 40 mg DAILY [facility] Administration Phenytoin Sodium 500 mg 11/19/19 22:00 11/26/19 21:05 Dilantin - PO [address] [facility] Administration Senna/Docusate Sodium 2 tablet 11/19/19 22:00 11/27/19 11:33 Pericolace - PO Not Given BID [facility] Tamsulosin HCl 0.4 mg 11/20/19 08:30 11/27/19 09:04 Flomax - PO 0.4 mg DAILY@0830 [facility] Administration Home Medications Medication Instructions Recorded Phenytoin Sodium Extended 500 mg PO HS #90 capsule 07/15/18 Warfarin Na [Coumadin -] 3 mg PO HS 07/24/18 Amlodipine-Olmesartan 10-40 mg 1 tab PO DAILY 11/11/19 Enoxaparin [Lovenox -] 60 mg SQ Q12H 11/11/19 Finasteride [Proscar] 5 mg PO DAILY 11/11/19 Fluticasone/Vilanterol [Breo 1 each IH HS 11/11/19 Ellipta 100-25 Mcg INH] Hydrochlorothiazide [Hctz -] 12.5 mg PO DAILY 11/11/19 Metoprolol Succinate 50 mg PO DAILY 11/11/19 Tamsulosin HCl [Flomax] 0.4 mg PO DAILY 11/11/19 Tramadol HCl 50 mg PO TID 11/18/19 Microbiology 11/18/19 18:31 Tissue-Other AFB Smear Concentration - Final 11/18/19 18:31 Tissue-Other Mycobacterial Culture - Preliminary 11/20/19 19:35 Blood - Peripheral Venous Blood Culture - Final NO GROWTH AFTER 5 DAYS INCUBATION 11/20/19 19:50 Blood - Peripheral Venous Blood Culture - Final NO GROWTH AFTER 5 DAYS INCUBATION 11/18/19 18:31 Tissue-Other Gram Stain - Final 11/18/19 18:31 Tissue-Other Tissue Culture - Final Proteus Mirabilis 11/18/19 18:31 Tissue-Other Anaerobic Culture - Final Prevotella Disiens 11/18/19 18:31 Tissue-Other LIDIA Preparation - Preliminary 11/18/19 18:31 Tissue-Other Fungal Culture - Preliminary 11/17/19 23:20 Blood - Peripheral Venous Blood Culture - Final NO GROWTH AFTER 5 DAYS INCUBATION 11/17/19 23:20 Blood - Peripheral Venous Blood Culture - Final NO GROWTH AFTER 5 DAYS INCUBATION 11/18/19 16:37 Knee - Left AFB Smear Concentration - Final 11/18/19 16:37 Knee - Left Mycobacterial Culture - Preliminary 11/21/19 06:00 Urine - Urine Clean Catch Urine Culture - Final NO GROWTH OBTAINED 11/18/19 16:37 Knee - Left Gram Stain - Final 11/18/19 16:37 Knee - Left Wound Culture - Final Proteus Mirabilis 11/17/19 23:20 Knee - Left Gram Stain - Final 11/17/19 23:20 Knee - Left Wound Culture - Final Serratia Marcescens Enterococcus Faecalis Proteus Mirabilis 11/18/19 19:51 Urine - Urine - Catheterized Urine Culture - Final NO GROWTH OBTAINED 11/18/19 16:37 Knee - Left LIDIA Preparation - Preliminary 11/18/19 16:37 Knee - Left Fungal Culture - Preliminary ASSESSMENT AND PLAN: This patient is a 68yom with PMHx of Left TKR 2019, DVT 2017 (on coumadin s/p IVC filter), HTN, HLD, GERD, seizure disorder, BPH, OA who presented with worsening L knee pain and swelling with drainage for several weeks. Pt is admitted for infected L knee. He is s/p I&D of L knee, L TKA hardware removal, tibial tubercle osteotomy, and placement of L knee abx spacer on 11/19/2019. # POD#8 s/p I&D with removal of hardware of left knee due to having L infected periprosthetic knee s/p placement left knee antibiotic spacer on IV zosyn , ID on the case #Acute blood loss: type and screen for 2 units , repeat level q12h, transfuse below 8.0, hold warfarin and Lovenox, IVC filter evaluation by vascular, one unit of FFP, lasix in bt transfusion. as per ortho patient will go back for re- washing the knee. 3 more units as per ortho and lasix in bt # Seizure disorder continue dilantin , dilantin level 7.9 # H/o DVT: Duplex lower extremity shows L popliteal vein DVT that is old, but persistent, hold coumadin and Lovenox ,aspirin is dc'd by surgical team. follow PT/INR in am #Hx of HTN, HLD, continue home meds # Hx of BPH continue home tamsulosin, finasteride DVT Px: no ac since patient is bleeding in his left knee GI Px: PPI INR cbc in am, transfuse if hemoglobin below 8 Dr Langston will take the patient back to OR in AM
[2019-11-27 20:17] LABS: BASO % 0.6 % (0-2.0); HEMATOCRIT 22.5 % (35.4-49); HEMOGLOBIN 7.6 GM/dL (11.7-16.9); LYMPH % 16.2 % (8-40); MCH 30.8 pg (25.7-33.7); MCHC 33.7 g/dl (32.0-35.9); MEAN CELL VOLUME 91.4 fl (80-96); MEAN PLT VOLUME 7.4 fl (7.5-11.1); MONO % 12.5 % (3.8-10.2); NEUT % 68.7 % (42.8-82.8); PLATELET COUNT 290 K/MM3 (134-434); RBC 2.46 M/mm3 (4.00-5.60); RDW 15.5 % (11.9-15.9); WHITE BLOOD COUNT 10.5 K/mm3 (4.0-10.0)
[2019-11-27] MEDS: PHENYTOIN NA EXTENDED 100 MG CAPSULE (FP) PO SCH (22:30)
[2019-11-28] MEDS: PIPERACILLIN/TAZOB 3.375 GM 3.375 GM in DEXTROSE 5%-WATER - 50 ML IVPB SCH ×3 (01:45→18:14)
[2019-11-28] MEDS ORDERED: DEXTROSE 5%-WATER - 50 ML IVPB ONE ×2 (02:00→09:58)
[2019-11-28] MEDS ORDERED: PIPERACILLIN/TAZOBACTAM 3.375 GM VIAL IVPB ONE ×2 (02:00→09:58)
[2019-11-28] MEDS: HYDROmorphone HCl 2 MG/ML VIAL IVPUSH PRN (05:16)
[2019-11-28 08:16] LABS: INR 1.54 (0.83-1.09); PROTHROMBIN TIME (PATIENT) 18.3 SEC (9.7-13.0)
[2019-11-28 08:21] LABS: BASO % 0.4 % (0-2.0); EOS % 2.4 % (0-4.5); HEMATOCRIT 23.7 % (35.4-49); LYMPH % 11.6 % (8-40); MCH 30.5 pg (25.7-33.7); MCHC 33.8 g/dl (32.0-35.9); MEAN CELL VOLUME 90.4 fl (80-96); MEAN PLT VOLUME 7.4 fl (7.5-11.1); MONO % 11.8 % (3.8-10.2); NEUT % 73.8 % (42.8-82.8); PLATELET COUNT 298 K/MM3 (134-434); RBC 2.62 M/mm3 (4.00-5.60); RDW 15.8 % (11.9-15.9); WHITE BLOOD COUNT 12.2 K/mm3 (4.0-10.0)
--- NOTE | 2019-11-28 08:27 | PN ---
Progress Note, Physician Chief Complaint: Remained afebrile History of Present Illness: 68yom with PMHx of Left TKR 2019, DVT 2017 (on coumadin s/p IVC filter), HTN, HLD, GERD, seizure disorder, BPH, OA who presented with worsening L knee pain and swelling with drainage for several weeks. Pt is admitted for infected L knee. He is s/p I&D of L knee, L TKA hardware removal, tibial tubercle osteotomy, and placement of L knee abx spacer on 11/19/2019. Postoperative day 9, today underwent left knee hematoma evacuation - Current Medication List Current Medications: Active Medications Acetaminophen (Tylenol -) 650 mg PO Q6H PRN PRN Reason: Fever Or Pain Last Admin: 11/27/19 09:04 Dose: 650 mg Documented by: Al Hydroxide/Mg Hydroxide (Mylanta Oral Suspension -) 30 ml PO Q4H PRN PRN Reason: DYSPEPSIA Last Admin: 11/26/19 11:47 Dose: 30 ml Documented by: Budesonide/Formoterol Fumarate (Symbicort 80/4.5mcg -) 2 puff IH BID [facility] Last Admin: 11/27/19 22:31 Dose: 2 puff Documented by: Enoxaparin Sodium (Lovenox -) 100 mg SQ BID [facility] Last Admin: 11/27/19 09:40 Dose: 100 mg Documented by: Finasteride (Proscar -) 5 mg PO DAILY [facility] Last Admin: 11/27/19 09:04 Dose: 5 mg Documented by: Furosemide (Lasix Injection -) 20 mg IVPUSH BID@0600,1400 PRN PRN Reason: GIVE AFTER EACH UNIT OF PRBC Last Admin: 11/27/19 15:53 Dose: 20 mg Documented by: Hydromorphone HCl (Dilaudid Vial -) 2 mg IVPUSH Q6H PRN PRN Reason: PAIN LEVEL 7 - 10 Last Admin: 11/28/19 05:16 Dose: 2 mg Documented by: Piperacillin Sod/Tazobactam (Sod 3.375 gm/ Dextrose) 50 mls @ 100 mls/hr IVPB Q8H-IV [facility]; Protocol Last Admin: 11/28/19 01:45 Dose: 100 mls/hr Documented by: Lactobacillus Acidophilus (Bacid -) 1 tab PO DAILY [facility] Last Admin: 11/27/19 09:04 Dose: 1 tab Documented by: Magnesium Hydroxide (Milk Of Magnesia -) 30 ml PO PRN PRN PRN Reason: CONSTIPATION Metoprolol Succinate (Toprol Xl -) 50 mg PO DAILY [facility] Last Admin: 11/27/19 09:04 Dose: 50 mg Documented by: Pantoprazole Sodium (Protonix -) 40 mg PO DAILY [facility] Last Admin: 11/27/19 09:04 Dose: 40 mg Documented by: Phenytoin Sodium (Dilantin -) 500 mg PO HS [facility] Last Admin: 11/27/19 22:30 Dose: 500 mg Documented by: Senna/Docusate Sodium (Pericolace -) 2 tablet PO BID [facility] Last Admin: 11/27/19 22:31 Dose: 2 tablet Documented by: Tamsulosin HCl (Flomax -) 0.4 mg PO DAILY@0830 [facility] Last Admin: 11/27/19 09:04 Dose: 0.4 mg Documented by: - Objective Vital Signs: Vital Signs Temperature 98.5 F 11/28/19 06:00 Pulse Rate 101 H 11/28/19 06:00 Respiratory Rate 17 11/28/19 06:00 Blood Pressure 121/78 11/28/19 06:00 O2 Sat by Pulse Oximetry (%) 100 11/28/19 06:00 General: Elderly man, comfortable, not in distress HEENT mucous membranes moist, no anemia, no jaundice, PERRLA, no nystagmus Neck: No JVD, supple, no bruit, thyroid palpably normal, normal carotid pulsations. Chest: Nontender, clear to auscultation bilaterally CVS: S1-S2 regular no murmur/gallop/rub Abdomen: Nondistended, soft, bowel sounds present. Extremities: Left knee status post surgery wound care as per his sister, no edema., No Calf tenderness, pulses present BARK PEELER: AO X3 , no gross motor sensory deficit Labs: INR, PTT INR 1.54 (0.83-1.09) H 11/28/19 07:27 Problem List - Problems (1) Infection of prosthetic left knee joint Assessment/Plan: Postoperative day 9 s/p I&D with removal of hardware of left knee due to having L infected periprosthetic knee s/p placement left knee antibiotic spacer on IV zosyn , ID on the case Problems reviewed: Yes Code(s): T84.54XA - INFECT/INFLM REACTION DUE TO INTERNAL LEFT KNEE PROSTH, INIT (2) Acute blood loss anemia Assessment/Plan: Received 2 unit blood transfusion hold anticoagulation by vascular ulcer secondary FFP follow-up H&H serially r Problems reviewed: Yes Code(s): D62 - ACUTE POSTHEMORRHAGIC ANEMIA (3) Left leg DVT Assessment/Plan: H/o DVT: Duplex lower extremity shows L popliteal vein DVT that is old, but persistent, hold coumadin and Lovenox ,aspirin is dc'd by surgical team. follow PT/INR in am Problems reviewed: Yes Code(s): I82.402 - ACUTE EMBOLISM AND THOMBOS UNSP DEEP VEINS OF L LOW EXTREM (4) Seizure disorder Assessment/Plan: Remained seizure-free continue Keppra Problems reviewed: Yes Code(s): G40.909 - EPILEPSY, UNSP, NOT INTRACTABLE, WITHOUT STATUS EPILEPTICUS (5) HTN (hypertension) Assessment/Plan: Well-controlled on current medication Problems reviewed: Yes Code(s): I10 - ESSENTIAL (PRIMARY) HYPERTENSION (6) BPH (benign prostatic hyperplasia) Assessment/Plan: Continue Flomax Problems reviewed: Yes Code(s): N40.0 - BENIGN PROSTATIC HYPERPLASIA WITHOUT LOWER URINRY TRACT SYMP
[2019-11-28] MEDS ORDERED: fentaNYL CITRATE 250 MCG/5 ML VIAL ONE (08:37)
[2019-11-28] MEDS ORDERED: LIDOCAINE HCL/PF 2% SDV 5ML VIAL ONE (08:37)
[2019-11-28] MEDS ORDERED: ONDANSETRON 4 MG/2 ML VIAL ONE (08:37)
[2019-11-28] MEDS ORDERED: DEXAMETHASONE SOD PHOSPHATE 4 MG/1 ML VIAL ONE (08:37)
[2019-11-28 08:38] LABS: BLOOD UREA NITROGEN 20.6 mg/dL (7-18); CALCIUM 7.8 mg/dL (8.5-10.1); CREATININE 0.9 mg/dL (0.55-1.3); POTASSIUM 3.6 mmol/L (3.5-5.1)
[2019-11-28] MEDS ORDERED: ROCURONIUM BROMIDE 50 MG/5 ML SYRINGE ONE (08:38)
[2019-11-28] MEDS ORDERED: PROPOFOL 20 ML ONE (08:38)
[2019-11-28] MEDS ORDERED: MIDAZOLAM HCL 2 MG/2 ML SINGLE DOSE VIAL ONE (08:38)
[2019-11-28] MEDS ORDERED: EPHEDRINE SULFATE/0.9% NACL/PF 50 MG/10 ML SYRINGE NR ONE (09:01)
[2019-11-28] MEDS ORDERED: THROMBIN (BOVINE) 5,000 UNIT VIAL TP ONE (09:18)
[2019-11-28] MEDS ORDERED: HYDROmorphone HCl 2 MG/ML VIAL ONE (09:22)
[2019-11-28] MEDS ORDERED: METOPROLOL TARTRATE 5 MG/5 ML VIAL ONE (09:54)
[2019-11-28] MEDS ORDERED: VANCOMYCIN 1,000 MG VIAL (RESTRICTED TO ID ONLY) ONE ×4 (10:03→10:24)
[2019-11-28] MEDS ORDERED: CALCIUM CHLORIDE 1 GM/10 ML *DISP.SYRIN ONE (10:24)
[2019-11-28] MEDS: TAMSULOSIN HCL 0.4 MG CAP PO SCH ×2 (10:29→15:00)
[2019-11-28] MEDS ORDERED: FUROSEMIDE 40 MG/4 ML INJECTABLE VIAL ONE (10:30)
[2019-11-28] MEDS: BUDESONIDE/FORMETEROL FUMARATE 80/4.5 mcg INHALER IH SCH ×3 (10:30→22:37)
[2019-11-28] MEDS: LACTOBACILLUS ACIDOPHILUS 1 TABLET PO SCH ×2 (10:30→15:00)
[2019-11-28] MEDS: SENNOSIDES/DOCUSATE COMBO (SENNA PLUS) TABLET (UD) PO SCH ×3 (10:30→22:38)
[2019-11-28] MEDS: PANTOPRAZOLE 40 MG TABLET PO SCH ×2 (10:30→15:00)
[2019-11-28] MEDS: FINASTERIDE 5 MG TABLET (FP) PO SCH ×2 (10:30→15:00)
[2019-11-28] MEDS ORDERED: VANCOMYCIN 1,000 MG VIAL (RESTRICTED TO ID ONLY) IVPB ONE (10:39)
[2019-11-28] MEDS ORDERED: NEOSTIGMINE METHYLSULFATE 0.5 MG/1 ML - 10 ML MDV ONE (11:03)
[2019-11-28] MEDS ORDERED: GLYCOPYRROLATE 0.2 MG/1 ML VIAL ONE (11:04)
[2019-11-28] MEDS ORDERED: ONDANSETRON 4 MG/2 ML VIAL IVPUSH PRN ×3 (11:35→13:25)
[2019-11-28] MEDS ORDERED: DEXAMETHASONE SOD PHOSPHATE 4 MG/1 ML VIAL IVPUSH PRN (11:36)
[2019-11-28] MEDS ORDERED: HYDROmorphone *PCA* 10MG/50ML DISP.SYRIN ONE (11:43)
[2019-11-28] MEDS ORDERED: LACTATED RINGERS SOLUTION 1,000 ML IV SCH (11:45)
[2019-11-28] MEDS ORDERED: HYDROmorphone *PCA* 10MG/50ML DISP.SYRIN PCA SCH (11:45)
--- NOTE | 2019-11-28 12:11 | OP ---
Operative Note - Note: Operative Date: 11/28/19 Pre-Operative Diagnosis: Hematoma L Knee Operation: Iand D Washout with revision of antibiotic spacer Findings: 1.5 liters blood in knee Post-Operative Diagnosis: Same as Pre-op Surgeon: Jonathan Langston Anesthesiologist/CHART CALCULATOR: Juma Lindsey Anesthesia: General Specimens Removed: Blood clot Drains & Tubes with Location: 3
[2019-11-28] MEDS: HYDROmorphone *PCA* 10MG/50ML DISP.SYRIN PCA SCH (12:55)
[2019-11-28] MEDS: LACTATED RINGERS SOLUTION 1,000 ML IV SCH (12:55)
[2019-11-28] MEDS ORDERED: MAG HYDROX/AL HYDROX/SIMETH 30 ML UNIT-DOSE CUP PO PRN (13:25)
[2019-11-28] MEDS ORDERED: MAGNESIUM HYDROX 2400MG/30ML ORAL SUSPENSION 30 ML CUP PO PRN (13:25)
[2019-11-28] MEDS ORDERED: ACETAMINOPHEN 325 MG TABLET (FP) PO PRN (13:25)
--- NOTE | 2019-11-28 13:56 | PN ---
Progress Note, Physician History of Present Illness: Pt is s/p washout/spacer, LT knee today. Alert, without distress. Pain controlled. - Current Medication List Current Medications: Active Medications Acetaminophen (Tylenol -) 650 mg PO Q6H PRN PRN Reason: Fever Al Hydroxide/Mg Hydroxide (Mylanta Oral Suspension -) 30 ml PO Q4H PRN PRN Reason: DYSPEPSIA Budesonide/Formoterol Fumarate (Symbicort 80/4.5mcg -) 2 puff IH BID [facility] Finasteride (Proscar -) 5 mg PO DAILY [facility] Hydromorphone HCl (Hydromorphone 10 Mg/50 Ml-Ns) 10 mg FRUIT INSPECTOR FRUIT INSPECTOR [facility]; Protocol Stop: 12/05/19 11:36 Lactated Ringer's (Lactated Ringers Solution) 1,000 mls @ 125 mls/hr IV ASDIR [facility] Piperacillin Sod/Tazobactam (Sod 3.375 gm/ Dextrose) 50 mls @ 100 mls/hr IVPB Q8H-IV [facility]; Protocol Lactobacillus Acidophilus (Bacid -) 1 tab PO DAILY [facility] Magnesium Hydroxide (Milk Of Magnesia -) 30 ml PO PRN PRN PRN Reason: CONSTIPATION Metoprolol Succinate (Toprol Xl -) 50 mg PO DAILY [facility] Ondansetron HCl (Zofran Injection) 4 mg IVPUSH Q4H PRN PRN Reason: NAUSEA AND/OR VOMITING Stop: 11/29/19 11:35 Pantoprazole Sodium (Protonix -) 40 mg PO DAILY [facility] Phenytoin Sodium (Dilantin -) 500 mg PO HS [facility] Senna/Docusate Sodium (Pericolace -) 2 tablet PO BID [facility] Tamsulosin HCl (Flomax -) 0.4 mg PO DAILY@0830 [facility] - Objective Vital Signs: Vital Signs Temperature 98.9 F 11/28/19 09:00 Pulse Rate 104 H 11/28/19 09:00 Respiratory Rate 17 11/28/19 09:00 Blood Pressure 134/77 11/28/19 09:00 O2 Sat by Pulse Oximetry (%) 100 11/28/19 09:00 Constitutional: Yes: No Distress, Calm Cardiovascular: Yes: Regular Rate and Rhythm Respiratory: Yes: Regular Gastrointestinal: Yes: Normal Bowel Sounds, Soft Genitourinary: Yes: WNL Wound/Incision: Yes: Other (Lt knee dressings intact, +drains x 3 sanguinous fluid) Neurological: Yes: Alert Labs: CBC, BMP 11/28/19 07:27 11/28/19 07:27 INR, PTT INR 1.54 (0.83-1.09) H 11/28/19 07:27 Microbiology 11/18/19 18:31 Tissue-Other AFB Smear Concentration - Final 11/18/19 18:31 Tissue-Other Mycobacterial Culture - Preliminary 11/20/19 19:35 Blood - Peripheral Venous Blood Culture - Final NO GROWTH AFTER 5 DAYS INCUBATION 11/20/19 19:50 Blood - Peripheral Venous Blood Culture - Final NO GROWTH AFTER 5 DAYS INCUBATION 11/18/19 18:31 Tissue-Other Gram Stain - Final 11/18/19 18:31 Tissue-Other Tissue Culture - Final Proteus Mirabilis 11/18/19 18:31 Tissue-Other Anaerobic Culture - Final Prevotella Disiens 11/18/19 18:31 Tissue-Other LIDIA Preparation - Preliminary 11/18/19 18:31 Tissue-Other Fungal Culture - Preliminary 11/17/19 23:20 Blood - Peripheral Venous Blood Culture - Final NO GROWTH AFTER 5 DAYS INCUBATION 11/17/19 23:20 Blood - Peripheral Venous Blood Culture - Final NO GROWTH AFTER 5 DAYS INCUBATION 11/18/19 16:37 Knee - Left AFB Smear Concentration - Final 11/18/19 16:37 Knee - Left Mycobacterial Culture - Preliminary 11/21/19 06:00 Urine - Urine Clean Catch Urine Culture - Final NO GROWTH OBTAINED 11/18/19 16:37 Knee - Left Gram Stain - Final 11/18/19 16:37 Knee - Left Wound Culture - Final Proteus Mirabilis 11/17/19 23:20 Knee - Left Gram Stain - Final 11/17/19 23:20 Knee - Left Wound Culture - Final Serratia Marcescens Enterococcus Faecalis Proteus Mirabilis 11/18/19 19:51 Urine - Urine - Catheterized Urine Culture - Final NO GROWTH OBTAINED 11/18/19 16:37 Knee - Left LIDIA Preparation - Preliminary 11/18/19 16:37 Knee - Left Fungal Culture - Preliminary Problem List - Problems (1) Acute blood loss anemia Code(s): D62 - ACUTE POSTHEMORRHAGIC ANEMIA (2) Infection of prosthetic left knee joint Code(s): T84.54XA - INFECT/INFLM REACTION DUE TO INTERNAL LEFT KNEE PROSTH, INIT (3) Left leg DVT Code(s): I82.402 - ACUTE EMBOLISM AND THOMBOS UNSP DEEP VEINS OF L LOW EXTREM (4) Seizure disorder Code(s): G40.909 - EPILEPSY, UNSP, NOT INTRACTABLE, WITHOUT STATUS EPILEPTICUS (5) Anemia Code(s): D64.9 - ANEMIA, UNSPECIFIED (6) BPH (benign prostatic hyperplasia) Code(s): N40.0 - BENIGN PROSTATIC HYPERPLASIA WITHOUT LOWER URINRY TRACT SYMP (7) Hypercholesteremia Code(s): E78.00 - PURE HYPERCHOLESTEROLEMIA, UNSPECIFIED (8) Osteoarthritis of left knee Code(s): M17.12 - UNILATERAL PRIMARY OSTEOARTHRITIS, LEFT KNEE Assessment/Plan Lt knee prosthesis infection s/p washout/spacer POD #0 -- continue Zosyn -- monitor vitals -- Orthopedics following
[2019-11-28] MEDS: PHENYTOIN NA EXTENDED 100 MG CAPSULE (FP) PO SCH (22:37)
[2019-11-29] MEDS ORDERED: DEXTROSE 5%-WATER - 50 ML IVPB ONE ×3 (01:39→13:43)
[2019-11-29] MEDS ORDERED: PIPERACILLIN/TAZOBACTAM 3.375 GM VIAL IVPB ONE ×3 (01:39→13:43)
[2019-11-29] MEDS: PIPERACILLIN/TAZOB 3.375 GM 3.375 GM in DEXTROSE 5%-WATER - 50 ML IVPB SCH ×3 (01:47→17:38)
--- NOTE | 2019-11-29 08:16 | PN ---
Teaching Attending Note Name of Resident: Scarlett Burnette ATTENDING PHYSICIAN STATEMENT I saw and evaluated the patient. I reviewed the resident's note and discussed the case with the resident. I agree with the resident's findings and plan as documented. SUBJECTIVE: Patient complains on left knee pain OBJECTIVE: Vital Signs Temperature 99.7 F H 11/29/19 06:00 Pulse Rate 102 H 11/29/19 06:00 Respiratory Rate 18 11/29/19 06:00 Blood Pressure 122/70 11/29/19 06:00 O2 Sat by Pulse Oximetry (%) 99 11/29/19 06:00 General: Elderly man, comfortable, not in distress HEENT mucous membranes moist, no anemia, no jaundice, PERRLA, no nystagmus Neck: No JVD, supple, no bruit, thyroid palpably normal, normal carotid pulsations. Chest: Nontender, clear to auscultation bilaterally CVS: S1-S2 regular no murmur/gallop/rub Abdomen: Nondistended, soft, bowel sounds present. Extremities: Left knee status post surgery wound care as per his sister, no edema., No Calf tenderness, pulses present PRACTICE SUPPORT SPECIALIST: AO X3 , no gross motor sensory deficit CBC, BMP 11/29/19 07:20 11/29/19 07:20 Left knee aspirate grew Proteus mirabilis: Active Medications Acetaminophen (Tylenol -) 650 mg PO Q6H PRN PRN Reason: Fever Or Pain Last Admin: 11/27/19 09:04 Dose: 650 mg Documented by: Al Hydroxide/Mg Hydroxide (Mylanta Oral Suspension -) 30 ml PO Q4H PRN PRN Reason: DYSPEPSIA Last Admin: 11/26/19 11:47 Dose: 30 ml Documented by: Budesonide/Formoterol Fumarate (Symbicort 80/4.5mcg -) 2 puff IH BID [facility] Last Admin: 11/27/19 22:31 Dose: 2 puff Documented by: Enoxaparin Sodium (Lovenox -) 100 mg SQ BID [facility] Last Admin: 11/27/19 09:40 Dose: 100 mg Documented by: Finasteride (Proscar -) 5 mg PO DAILY [facility] Last Admin: 11/27/19 09:04 Dose: 5 mg Documented by: Furosemide (Lasix Injection -) 20 mg IVPUSH BID@0600,1400 PRN PRN Reason: GIVE AFTER EACH UNIT OF PRBC Last Admin: 11/27/19 15:53 Dose: 20 mg Documented by: Hydromorphone HCl (Dilaudid Vial -) 2 mg IVPUSH Q6H PRN PRN Reason: PAIN LEVEL 7 - 10 Last Admin: 11/28/19 05:16 Dose: 2 mg Documented by: Piperacillin Sod/Tazobactam (Sod 3.375 gm/ Dextrose) 50 mls @ 100 mls/hr IVPB Q8H-IV [facility]; Protocol Last Admin: 11/28/19 01:45 Dose: 100 mls/hr Documented by: Lactobacillus Acidophilus (Bacid -) 1 tab PO DAILY [facility] Last Admin: 11/27/19 09:04 Dose: 1 tab Documented by: Magnesium Hydroxide (Milk Of Magnesia -) 30 ml PO PRN PRN PRN Reason: CONSTIPATION Metoprolol Succinate (Toprol Xl -) 50 mg PO DAILY [facility] Last Admin: 11/27/19 09:04 Dose: 50 mg Documented by: Pantoprazole Sodium (Protonix -) 40 mg PO DAILY [facility] Last Admin: 11/27/19 09:04 Dose: 40 mg Documented by: Phenytoin Sodium (Dilantin -) 500 mg PO HS [facility] Last Admin: 11/27/19 22:30 Dose: 500 mg Documented by: Senna/Docusate Sodium (Pericolace -) 2 tablet PO BID [facility] Last Admin: 11/27/19 22:31 Dose: 2 tablet Documented by: Tamsulosin HCl (Flomax -) 0.4 mg PO DAILY@0830 [facility] Last Admin: 11/27/19 09:04 Dose: 0.4 mg Documented by: ASSESSMENT AND PLAN:68yom with PMHx of Left TKR 2019, DVT 2017 (on coumadin s/p IVC filter), HTN, HLD, GERD, seizure disorder, BPH, OA who presented with worsening L knee pain and swelling with drainage for several weeks. Pt is admitted for infected L knee. He is s/p I&D of L knee, L TKA hardware removal, tibial tubercle osteotomy, and placement of L knee abx spacer on 11/19/2019. Postoperative day 9, today underwent left knee hematoma evacuation Plan of care: 1.Patient remained hemodynamically stable and afebrile yesterday H&H was stable, underwent left knee hematoma evacuation by orthopedics, last knee aspirate culture on November 18, 2019 grew Proteus mirabilis pansensitive on IV antibiotic will continue current antibiotic follow-up repeat culture. 2.Follow-up H&H if remains a stable will need to discuss with orthopedics to resume anticoagulation. Problem List - Problems (1) Infection of prosthetic left knee joint Assessment/Plan: Postoperative day 9 s/p I&D with removal of hardware of left knee due to having L infected periprosthetic knee s/p placement left knee wash, last culture on November 17 grew Proteus Mirabella's on IV Zosyn Code(s): T84.54XA - INFECT/INFLM REACTION DUE TO INTERNAL LEFT KNEE PROSTH, INIT (2) Acute blood loss anemia Assessment/Plan: R patient developed postoperative anemia received blood transfusion now H&H are stable Code(s): D62 - ACUTE POSTHEMORRHAGIC ANEMIA (3) Left leg DVT Assessment/Plan: Patient had left both DVT operative 2019 after left knee TKR underwent filter placement by Dr. Evans on 06/26/2018, during this hospitalization due to skin necrosis old left (DVT, but x-ray KUB abdomen does not show IVC filter, consider lower extremity Doppler, H&H are stable will discuss with orthopedics to resume anticoagulation if dorsal Doppler shows DVT.. Code(s): I82.402 - ACUTE EMBOLISM AND THOMBOS UNSP DEEP VEINS OF L LOW EXTREM (4) Seizure disorder Assessment/Plan: Remained seizure-free continue Keppra Code(s): G40.909 - EPILEPSY, UNSP, NOT INTRACTABLE, WITHOUT STATUS EPILEPTICUS (5) HTN (hypertension) Assessment/Plan: Well-controlled on current medication Code(s): I10 - ESSENTIAL (PRIMARY) HYPERTENSION (6) BPH (benign prostatic hyperplasia) Assessment/Plan: Continue Flomax Code(s): N40.0 - BENIGN PROSTATIC HYPERPLASIA WITHOUT LOWER URINRY TRACT SYMP
[2019-11-29 08:18] LABS: INR 1.58 (0.83-1.09); PROTHROMBIN TIME (PATIENT) 18.7 SEC (9.7-13.0)
[2019-11-29 08:26] LABS: BASO % 0.4 % (0-2.0); EOS % 1.6 % (0-4.5); HEMATOCRIT 27.2 % (35.4-49); HEMOGLOBIN 9.2 GM/dL (11.7-16.9); LYMPH % 7.2 % (8-40); MCHC 33.9 g/dl (32.0-35.9); MEAN CELL VOLUME 91.4 fl (80-96); MEAN PLT VOLUME 7.1 fl (7.5-11.1); MONO % 9.4 % (3.8-10.2); NEUT % 81.4 % (42.8-82.8); PLATELET COUNT 292 K/MM3 (134-434); RBC 2.97 M/mm3 (4.00-5.60); RDW 15.8 % (11.9-15.9); WHITE BLOOD COUNT 10.9 K/mm3 (4.0-10.0)
--- NOTE | 2019-11-29 08:26 | PN ---
Progress Note (short form) - Note Progress Note: POD#1 post repeat I and D with Antibiotic spacer exchange Comfortable Apyrexial CVS Pulse 104 Perfusing well RESP OK AE equal bilaterally ABD Sofrt MSleletal [id number] since last night Bandage dry Drains have Neuro fully intact to touch and moving toes vigorously Knee immobilizer fitting well Skin No breakdown on buttocks. Mental status No affective change mild reactive depression. ASSESS Difficult problem Recurrent wound hemorrhage Heme oncology evaluating coagulation profile At present no bleeding concern Infection managed with antibiotic spacer and IV antibiotics ID managing this New cultures were taken yesterday PLAN Depending on Hb for more blood D/C [place] Maintain nutrition regular and enhanced protein calorie intake Coagulation profile reassessment discussed with Dr Gonzalez Nursing Avoid skin breakdown Suggest early PICC line For IVC filter Hold all anticoagulation for another 24 hrs. Any problems call me [phone]
[2019-11-29 08:39] LABS: BLOOD UREA NITROGEN 23.6 mg/dL (7-18); POTASSIUM 3.7 mmol/L (3.5-5.1)
--- NOTE | 2019-11-29 09:32 | OP ---
DATE OF OPERATION: DATE OF DICTATION: 11/28/2019 SURGEON: Jonathan Langston MD LINEN WORKER: No legal administrative assistant. PREOPERATIVE DIAGNOSIS: Massive hematoma left knee post 1st stage revision knee arthroplasty for infection. POSTOPERATIVE DIAGNOSIS: Massive hematoma left knee post 1st stage revision knee arthroplasty for infection. OPERATION: 1. Incision, drainage, wash-out of hematoma. (72907) 2. Exchange of antibiotic cement spacer. (60462) ANESTHESIA: General. ANTIBIOTICS GIVEN: Nil. Antibiotics given prior to him coming from the floor and dosed according to the appropriate regimen. DETAILS: Patient correctly identified, brought in the operating room. Left lower extremity was prepped and draped in the routine manner with Betadine scrub solution, wiped with alcohol, DuraPrep applied. The knee was unduly swollen. The danny and sutures were removed. Massive hematoma measuring approximately 1.5 L removed from this knee. This took a long time to remove all the hematoma from various areas in the tissue planes. In addition to this, a sterile lavage with 10 L saline was utilized. Culture sticks were inserted to send for culture and sensitivity. The antibiotic spacer was removed including the rods in the femur and tibia. New spacers were manufactured with tobramycin and vancomycin mixed into the cement. Two new rods were manufactured utilizing No. 32 intercostal drain tubes and then a biscuit spacer inserted. Vancomycin was sprinkled into the tissues as well. By the time we were about to close the wound all bleeding had stopped. The wounds were dry. Tissues looked healthy. The tissues were closed in layers, the quadriceps mechanism with No. 1 Vicryl, the tibial tubercle with No. 0 Prolene Lautenbach sutures. The subcutaneous tissues were closed in 2 layers with Vicryl and additional Prolene caught into Lautenbach sutures and then the skin was closed with Prolene and danny. Drains: Two large 19-Ethiopian drains were inserted and 1 small drain in the subcutaneous plane. The drains were working well. A wooly bandage applied to the limb with a knee immobilizer. Patient tolerated the procedure well, was given 2 units of blood intraoperatively. Will be returned to a monitored setting another 2 pints of blood to be given tomorrow. The case will be reviewed again and wound inspections done on Saturday, that is 48 hours. MD HOLLY Rousseau/[id number] MTDBrendan
[2019-11-29] MEDS: BUDESONIDE/FORMETEROL FUMARATE 80/4.5 mcg INHALER IH SCH ×2 (11:06→22:45)
[2019-11-29] MEDS: LACTOBACILLUS ACIDOPHILUS 1 TABLET PO SCH (11:07)
[2019-11-29] MEDS: FINASTERIDE 5 MG TABLET (FP) PO SCH (11:07)
[2019-11-29] MEDS: TAMSULOSIN HCL 0.4 MG CAP PO SCH (11:07)
[2019-11-29] MEDS: SENNOSIDES/DOCUSATE COMBO (SENNA PLUS) TABLET (UD) PO SCH ×2 (11:07→21:29)
[2019-11-29] MEDS: PANTOPRAZOLE 40 MG TABLET PO SCH (11:07)
--- NOTE | 2019-11-29 14:14 | PN ---
Progress Note, Physician History of Present Illness: Pt states he feels well. Afebrile, pain controlled. - Current Medication List Current Medications: Active Medications Acetaminophen (Tylenol -) 650 mg PO Q6H PRN PRN Reason: Fever Al Hydroxide/Mg Hydroxide (Mylanta Oral Suspension -) 30 ml PO Q4H PRN PRN Reason: DYSPEPSIA Budesonide/Formoterol Fumarate (Symbicort 80/4.5mcg -) 2 puff IH BID [facility] Last Admin: 11/29/19 11:06 Dose: 2 inh Documented by: Finasteride (Proscar -) 5 mg PO DAILY [facility] Last Admin: 11/29/19 11:07 Dose: 5 mg Documented by: Hydromorphone HCl (Hydromorphone 10 Mg/50 Ml-Ns) 10 mg CAMERA ASSEMBLER CAMERA ASSEMBLER [facility]; Protocol Stop: 12/05/19 11:36 Last Admin: 11/28/19 12:55 Dose: 10 mg Documented by: Lactated Ringer's (Lactated Ringers Solution) 1,000 mls @ 125 mls/hr IV ASDIR [facility] Last Admin: 11/28/19 12:55 Dose: 250 mls Documented by: Piperacillin Sod/Tazobactam (Sod 3.375 gm/ Dextrose) 50 mls @ 100 mls/hr IVPB Q8H-IV [facility]; Protocol Last Admin: 11/29/19 11:06 Dose: 100 mls/hr Documented by: Lactobacillus Acidophilus (Bacid -) 1 tab PO DAILY [facility] Last Admin: 11/29/19 11:07 Dose: 1 tab Documented by: Magnesium Hydroxide (Milk Of Magnesia -) 30 ml PO PRN PRN PRN Reason: CONSTIPATION Metoprolol Succinate (Toprol Xl -) 50 mg PO DAILY [facility] Last Admin: 11/29/19 11:07 Dose: 50 mg Documented by: Pantoprazole Sodium (Protonix -) 40 mg PO DAILY [facility] Last Admin: 11/29/19 11:07 Dose: 40 mg Documented by: Phenytoin Sodium (Dilantin -) 500 mg PO [facility] Last Admin: 11/28/19 22:37 Dose: 500 mg Documented by: Senna/Docusate Sodium (Pericolace -) 2 tablet PO BID [facility] Last Admin: 11/29/19 11:07 Dose: 2 tablet Documented by: Tamsulosin HCl (Flomax -) 0.4 mg PO DAILY@0830 [facility] Last Admin: 11/29/19 11:07 Dose: 0.4 mg Documented by: - Objective Vital Signs: Vital Signs Temperature 99.7 F H 11/29/19 06:00 Pulse Rate 102 H 11/29/19 06:00 Respiratory Rate 18 11/29/19 06:00 Blood Pressure 122/70 11/29/19 06:00 O2 Sat by Pulse Oximetry (%) 99 11/29/19 06:00 Constitutional: Yes: No Distress, Calm Cardiovascular: Yes: Regular Rate and Rhythm Respiratory: Yes: Regular Gastrointestinal: Yes: Normal Bowel Sounds, Soft, Abdomen, Obese Genitourinary: Yes: WNL Integumentary: Yes: WNL Wound/Incision: Yes: Other (LLE dressing intact, drains in place) Neurological: Yes: Alert, Oriented Labs: CBC, BMP 11/29/19 07:20 11/29/19 07:20 INR, PTT INR 1.58 (0.83-1.09) H 11/29/19 07:20 Microbiology 11/28/19 11:13 Knee - Left Gram Stain - Final 11/28/19 11:13 Knee - Left Wound Culture - Preliminary NO GROWTH OBTAINED AFTER 24 HOURS INCUBATION, REINCUBATED. 11/18/19 18:31 Tissue-Other AFB Smear Concentration - Final 11/18/19 18:31 Tissue-Other Mycobacterial Culture - Preliminary 11/20/19 19:35 Blood - Peripheral Venous Blood Culture - Final NO GROWTH AFTER 5 DAYS INCUBATION 11/20/19 19:50 Blood - Peripheral Venous Blood Culture - Final NO GROWTH AFTER 5 DAYS INCUBATION 11/18/19 18:31 Tissue-Other Gram Stain - Final 11/18/19 18:31 Tissue-Other Tissue Culture - Final Proteus Mirabilis 11/18/19 18:31 Tissue-Other Anaerobic Culture - Final Prevotella Disiens 11/18/19 18:31 Tissue-Other LIDIA Preparation - Preliminary 11/18/19 18:31 Tissue-Other Fungal Culture - Preliminary 11/17/19 23:20 Blood - Peripheral Venous Blood Culture - Final NO GROWTH AFTER 5 DAYS INCUBATION 11/17/19 23:20 Blood - Peripheral Venous Blood Culture - Final NO GROWTH AFTER 5 DAYS INCUBATION 11/18/19 16:37 Knee - Left AFB Smear Concentration - Final 11/18/19 16:37 Knee - Left Mycobacterial Culture - Preliminary 11/21/19 06:00 Urine - Urine Clean Catch Urine Culture - Final NO GROWTH OBTAINED 11/18/19 16:37 Knee - Left Gram Stain - Final 11/18/19 16:37 Knee - Left Wound Culture - Final Proteus Mirabilis 11/17/19 23:20 Knee - Left Gram Stain - Final 11/17/19 23:20 Knee - Left Wound Culture - Final Serratia Marcescens Enterococcus Faecalis Proteus Mirabilis 11/18/19 19:51 Urine - Urine - Catheterized Urine Culture - Final NO GROWTH OBTAINED 11/18/19 16:37 Knee - Left LIDIA Preparation - Preliminary 11/18/19 16:37 Knee - Left Fungal Culture - Preliminary Problem List - Problems (1) Acute blood loss anemia Code(s): D62 - ACUTE POSTHEMORRHAGIC ANEMIA (2) Infection of prosthetic left knee joint Code(s): T84.54XA - INFECT/INFLM REACTION DUE TO INTERNAL LEFT KNEE PROSTH, INIT (3) Left leg DVT Code(s): I82.402 - ACUTE EMBOLISM AND THOMBOS UNSP DEEP VEINS OF L LOW EXTREM (4) Seizure disorder Code(s): G40.909 - EPILEPSY, UNSP, NOT INTRACTABLE, WITHOUT STATUS EPILEPTICUS (5) Anemia Code(s): D64.9 - ANEMIA, UNSPECIFIED (6) BPH (benign prostatic hyperplasia) Code(s): N40.0 - BENIGN PROSTATIC HYPERPLASIA WITHOUT LOWER URINRY TRACT SYMP (7) Hypercholesteremia Code(s): E78.00 - PURE HYPERCHOLESTEROLEMIA, UNSPECIFIED (8) Osteoarthritis of left knee Code(s): M17.12 - UNILATERAL PRIMARY OSTEOARTHRITIS, LEFT KNEE Assessment/Plan Lt knee prosthesis infection s/p hardware removal s/p washout/I+D/spacer POD #1 LLE DVT -- continue Zosyn -- latest wound cultures neg 24h, continue to follow -- monitor vitals -- Orthopedics following
[2019-11-29] MEDS: LACTATED RINGERS SOLUTION 1,000 ML IV SCH (15:38)
--- NOTE | 2019-11-29 16:43 | PN ---
Physical Exam: SUBJECTIVE: Patient seen and examined. POD 1 for I&D washout w/ revision of abx spacer. 1.5L blood found in knee. Received 2U pRBC in OR. Pt stated pain is controlled w/ medication. OBJECTIVE: Vital Signs Period Temp Pulse Resp BP Sys/Gee Pulse Ox Last 24 Hr 98.2 F-99.7 F 98-111 18-20 105-129/62-74 92-99 GENERAL: AAOx3, not in acute distress. HEENT: NCAT, EOMI, moist mucus membranes. CARDIAC: regular rate and rhythm. S1, S2 present. No murmurs. RESPIRATORY: CTA b/l, no wheezes. ABDOMEN: Obese, non-distended, non-tender to palpation. Normoactive bowel sounds. EXTREMITIES: LLE bandaged and immobilized. 3 drains visible next to leg. Draining sanguineous fluid. SKIN: Warm, dry. NEUROLOGICAL: Sensation and movement intact. Moves toes spontaneously. CBC, BMP 11/29/19 07:20 11/29/19 07:20 Active Medications Acetaminophen (Tylenol -) 650 mg PO Q6H PRN PRN Reason: Fever Al Hydroxide/Mg Hydroxide (Mylanta Oral Suspension -) 30 ml PO Q4H PRN PRN Reason: DYSPEPSIA Budesonide/Formoterol Fumarate (Symbicort 80/4.5mcg -) 2 puff IH BID [facility] Last Admin: 11/29/19 11:06 Dose: 2 inh Documented by: Finasteride (Proscar -) 5 mg PO DAILY [facility] Last Admin: 11/29/19 11:07 Dose: 5 mg Documented by: Hydromorphone HCl (Hydromorphone 10 Mg/50 Ml-Ns) 10 mg DIGITAL CONTENT PRODUCER DIGITAL CONTENT PRODUCER [facility]; Protocol Stop: 12/05/19 11:36 Last Admin: 11/28/19 12:55 Dose: 10 mg Documented by: Lactated Ringer's (Lactated Ringers Solution) 1,000 mls @ 125 mls/hr IV ASDIR [facility] Last Admin: 11/28/19 12:55 Dose: 250 mls Documented by: Piperacillin Sod/Tazobactam (Sod 3.375 gm/ Dextrose) 50 mls @ 100 mls/hr IVPB Q8H-IV [facility]; Protocol Last Admin: 11/29/19 11:06 Dose: 100 mls/hr Documented by: Lactobacillus Acidophilus (Bacid -) 1 tab PO DAILY [facility] Last Admin: 11/29/19 11:07 Dose: 1 tab Documented by: Magnesium Hydroxide (Milk Of Magnesia -) 30 ml PO PRN PRN PRN Reason: CONSTIPATION Metoprolol Succinate (Toprol Xl -) 50 mg PO DAILY [facility] Last Admin: 11/29/19 11:07 Dose: 50 mg Documented by: Pantoprazole Sodium (Protonix -) 40 mg PO DAILY [facility] Last Admin: 11/29/19 11:07 Dose: 40 mg Documented by: Phenytoin Sodium (Dilantin -) 500 mg PO HS [facility] Last Admin: 11/28/19 22:37 Dose: 500 mg Documented by: Senna/Docusate Sodium (Pericolace -) 2 tablet PO BID [facility] Last Admin: 11/29/19 11:07 Dose: 2 tablet Documented by: Tamsulosin HCl (Flomax -) 0.4 mg PO DAILY@0830 [facility] Last Admin: 11/29/19 11:07 Dose: 0.4 mg Documented by: ASSESSMENT/PLAN: 68 year old M PMH L TKR 2019, DVT 2017 (on coumadin s/p IVC filter), HTN, hypercholesterolemia, GERD, seizure disorder, BPH, OA who presented with worsening L knee pain and swelling with drainage for several weeks. Pt admitted for infected L knee. He is s/p I&D of L knee, L TKA hardware removal, tibial tubercle osteotomy, and placement of L knee abx spacer on 11/18/2019. S/p I&D and exchange of abx spacer on 11/27. L infected periprosthetic knee - Pt s/p I&D left knee, removal L TKA hardware, placement left knee antibiotic spacer, tibial tubercle osteotomy on 11/17 - Monitor drain output, I/O's - Cultures: Ucx negative. Bcx negative thus far. -11/27 L knee wound negative-preliminary. -11/17 Tissue cx growing proteus, prevotella disiens, -11/16 L knee wound grew serratia, enterococcus faecalis, proteus. Bcx negative. Ucx negative. - c/w Zosyn, started 11/20/2019. Today is day 10. - Ortho following. Discussed case. - POD #1 for I&D and abx spacer exchange. 2U pRBC given in OR. Hold AC for now. Resume lovenox tomorrow. - Heme/Onc consulted. Pending recommendations. - Pain control w/ DIGITAL CONTENT PRODUCER - c/w bowel regimen - ID consulted. Recommended c/w abx and wound care. Plans for retirement abx. - c/w symbicort - c/w probiotics Anemia, improved - Hb 9.2 - f/u CBC - Heme consulted. Recommended due to post-op, pt at high risk for acute DVT. If concern that therapeutic anticoagulation is causing significant bleeding, it can be stopped. However, recommended prophylactic chemical anticoagulation b/c pt high risk. Would also recommend vascular surgery input as patient may need IVC filter in the future. (KUB 11/19 did not show IVC). -hold AC for now as per ortho. Seizure disorder -c/w dilantin 500 qHS H/o DVT - Duplex lower extremity shows L popliteal vein DVT that is old, but persistent - abdominal Xray did not detect IVC filter, however, not all can be detected with Xray - f/u repeat duplex Lower extremities, US abd to assess for IVC filter - records show h/o IVC placed here in 06/30/[address] Evans HTN, Hypercholesterolemia - c/w metoprolol succinate 50 qD - resume home dose antihypertensives when possible BPH -c/w home tamsulosin, finasteride FEN - LR @ 125 - Monitor and replete electrolytes - Regular diet Ppx - DVT: Hold AC, as per ortho. SCDs - GI: Protonix Dispo: monitor in telemetry. Visit type - Emergency Visit Emergency Visit: Yes ED Registration Date: 11/17/19 Care time: The patient presented to the Emergency Department on the above date and was hospitalized for further evaluation of their emergent condition. - New Patient This patient is new to me today: No - Critical Care Critical Care patient: No - Medication Review Med list reviewed for High Risk Meds patients 65 and older: Yes ATTENDING PHYSICIAN STATEMENT I saw and evaluated the patient. I reviewed the resident's note and discussed the case with the resident. I agree with the resident's findings and plan as documented. SUBJECTIVE: OBJECTIVE: ASSESSMENT AND PLAN:
--- NOTE | 2019-11-29 20:22 | PN ---
Progress Note (short form) - Note Progress Note: 68N s/p Left knee washout under GA. No anesthesia related complications. continue current management per primary team
[2019-11-29] MEDS: PHENYTOIN NA EXTENDED 100 MG CAPSULE (FP) PO SCH (21:28)
[2019-11-30] MEDS: LACTATED RINGERS SOLUTION 1,000 ML IV SCH ×3 (00:06→22:34)
[2019-11-30] MEDS ORDERED: PIPERACILLIN/TAZOBACTAM 3.375 GM VIAL IVPB ONE ×3 (01:13→18:02)
[2019-11-30] MEDS ORDERED: DEXTROSE 5%-WATER - 50 ML IVPB ONE ×3 (01:13→18:02)
[2019-11-30] MEDS: PIPERACILLIN/TAZOB 3.375 GM 3.375 GM in DEXTROSE 5%-WATER - 50 ML IVPB SCH ×3 (01:20→18:06)
[2019-11-30 07:26] LABS: BASO % 0.7 % (0-2.0); EOS % 2.9 % (0-4.5); HEMATOCRIT 24.1 % (35.4-49); LYMPH % 12.9 % (8-40); MCHC 33.3 g/dl (32.0-35.9); MEAN CELL VOLUME 93.3 fl (80-96); MEAN PLT VOLUME 7.3 fl (7.5-11.1); NEUT % 74.5 % (42.8-82.8); PLATELET COUNT 246 K/MM3 (134-434); RBC 2.58 M/mm3 (4.00-5.60); RDW 16.1 % (11.9-15.9); WHITE BLOOD COUNT 7.2 K/mm3 (4.0-10.0)
[2019-11-30 07:44] LABS: INR 1.28 (0.83-1.09); PROTHROMBIN TIME (PATIENT) 15.1 SEC (9.7-13.0)
[2019-11-30 07:47] LABS: BLOOD UREA NITROGEN 18.3 mg/dL (7-18); CALCIUM 7.6 mg/dL (8.5-10.1); CREATININE 0.7 mg/dL (0.55-1.3); POTASSIUM 3.7 mmol/L (3.5-5.1)
--- NOTE | 2019-11-30 08:43 | PN ---
Progress Note (short form) - Note Progress Note: Stable Hb dropped as per chart Apyrexial CVS Stable Resp Clear ABD Soft Mskeletal Drainage as per chart approx 100mls overnight Bandage dry No NVD ASSESS Improving status PLAN For IVC filter Coagulation evaluation by hematology PT attempt getting into a chair Hold Lovenox another 24 hrs ga bleeding experienced is prodigious To discuss insertion of a picc line
[2019-11-30] MEDS: BUDESONIDE/FORMETEROL FUMARATE 80/4.5 mcg INHALER IH SCH ×2 (10:57→21:02)
[2019-11-30] MEDS: FINASTERIDE 5 MG TABLET (FP) PO SCH (10:57)
[2019-11-30] MEDS: PANTOPRAZOLE 40 MG TABLET PO SCH (10:57)
[2019-11-30] MEDS: LACTOBACILLUS ACIDOPHILUS 1 TABLET PO SCH (10:57)
[2019-11-30] MEDS: TAMSULOSIN HCL 0.4 MG CAP PO SCH (10:57)
[2019-11-30] MEDS: SENNOSIDES/DOCUSATE COMBO (SENNA PLUS) TABLET (UD) PO SCH ×2 (10:57→21:11)
--- NOTE | 2019-11-30 14:08 | PN ---
Progress Note, Physician History of Present Illness: stable s/p washout plan for ivc filter repeat cx noted - Current Medication List Current Medications: Active Medications Acetaminophen (Tylenol -) 650 mg PO Q6H PRN PRN Reason: Fever Al Hydroxide/Mg Hydroxide (Mylanta Oral Suspension -) 30 ml PO Q4H PRN PRN Reason: DYSPEPSIA Budesonide/Formoterol Fumarate (Symbicort 80/4.5mcg -) 2 puff IH BID [facility] Last Admin: 11/30/19 10:57 Dose: 2 inh Documented by: Finasteride (Proscar -) 5 mg PO DAILY [facility] Last Admin: 11/30/19 10:57 Dose: 5 mg Documented by: Hydromorphone HCl (Hydromorphone 10 Mg/50 Ml-Ns) 10 mg ACCOUNTING INSTRUCTOR ACCOUNTING INSTRUCTOR [facility]; Protocol Stop: 12/05/19 11:36 Last Admin: 11/28/19 12:55 Dose: 10 mg Documented by: Lactated Ringer's (Lactated Ringers Solution) 1,000 mls @ 125 mls/hr IV ASDIR [facility] Last Admin: 11/30/19 00:06 Dose: 125 mls/hr Documented by: Piperacillin Sod/Tazobactam (Sod 3.375 gm/ Dextrose) 50 mls @ 100 mls/hr IVPB Q8H-IV [facility]; Protocol Last Admin: 11/30/19 10:57 Dose: 100 mls/hr Documented by: Lactobacillus Acidophilus (Bacid -) 1 tab PO DAILY [facility] Last Admin: 11/30/19 10:57 Dose: 1 tab Documented by: Magnesium Hydroxide (Milk Of Magnesia -) 30 ml PO PRN PRN PRN Reason: CONSTIPATION Metoprolol Succinate (Toprol Xl -) 50 mg PO DAILY [facility] Last Admin: 11/30/19 10:57 Dose: 50 mg Documented by: Pantoprazole Sodium (Protonix -) 40 mg PO DAILY [facility] Last Admin: 11/30/19 10:57 Dose: 40 mg Documented by: Phenytoin Sodium (Dilantin -) 500 mg PO [facility] Last Admin: 11/29/19 21:28 Dose: 500 mg Documented by: Senna/Docusate Sodium (Pericolace -) 2 tablet PO BID [facility] Last Admin: 11/30/19 10:57 Dose: Not Given Documented by: Tamsulosin HCl (Flomax -) 0.4 mg PO DAILY@0830 [facility] Last Admin: 11/30/19 10:57 Dose: 0.4 mg Documented by: - Objective Vital Signs: Vital Signs Temperature 99 F 11/30/19 10:00 Pulse Rate 102 H 11/30/19 10:00 Respiratory Rate 20 11/30/19 10:00 Blood Pressure 122/65 11/30/19 10:00 O2 Sat by Pulse Oximetry (%) 100 11/30/19 10:00 Constitutional: Yes: No Distress, Calm Cardiovascular: Yes: S1, S2 Respiratory: Yes: Regular, CTA Bilaterally Gastrointestinal: Yes: Normal Bowel Sounds, Soft Musculoskeletal: Yes: WNL Extremities: Yes: Other Wound/Incision: Yes: Dressing Dry and Intact Neurological: Yes: Alert, Oriented Psychiatric: Yes: Alert, Oriented Labs: CBC, BMP 11/30/19 05:25 11/30/19 05:25 INR, PTT INR 1.28 (0.83-1.09) H 11/30/19 05:25 Assessment/Plan Problem List - Problems (1) Acute blood loss anemia Code(s): D62 - ACUTE POSTHEMORRHAGIC ANEMIA (2) Infection of prosthetic left knee joint Code(s): T84.54XA - INFECT/INFLM REACTION DUE TO INTERNAL LEFT KNEE PROSTH, INIT (3) Left leg DVT Code(s): I82.402 - ACUTE EMBOLISM AND THOMBOS UNSP DEEP VEINS OF L LOW EXTREM (4) Seizure disorder Code(s): G40.909 - EPILEPSY, UNSP, NOT INTRACTABLE, WITHOUT STATUS EPILEPTICUS (5) Anemia Code(s): D64.9 - ANEMIA, UNSPECIFIED (6) BPH (benign prostatic hyperplasia) Code(s): N40.0 - BENIGN PROSTATIC HYPERPLASIA WITHOUT LOWER URINRY TRACT SYMP (7) Hypercholesteremia Code(s): E78.00 - PURE HYPERCHOLESTEROLEMIA, UNSPECIFIED (8) Osteoarthritis of left knee Code(s): M17.12 - UNILATERAL PRIMARY OSTEOARTHRITIS, LEFT KNEE Assessment/Plan Lt knee prosthesis infection s/p hardware removal s/p washout/I+D/spacer POD #1 LLE DVT -- continue Zosyn for ivc filter 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 continue current mgmt
--- NOTE | 2019-11-30 14:38 | PN ---
Physical Exam: SUBJECTIVE: Patient seen and examined. Stated that pain is controlled on medication. Denies fevers, chills, SOB, c/p. No acute events overnight. OBJECTIVE: Vital Signs Period Temp Pulse Resp BP Sys/Gee Pulse Ox Last 24 Hr 98.2 F-99.4 F 96-102 18-20 114-134/63-77 99-100 GENERAL: AAOx3, not in acute distress. HEENT: NCAT, EOMI, moist mucus membranes. CARDIAC: regular rate and rhythm. S1, S2 present. No murmurs. RESPIRATORY: CTA b/l, no wheezes. ABDOMEN: Obese, non-distended, non-tender to palpation. Normoactive bowel sounds. EXTREMITIES: LLE bandaged and immobilized. 3 drains visible next to leg. Draining sanguineous fluid. SKIN: Warm, dry. NEUROLOGICAL: Sensation and movement intact. Moves toes spontaneously. Laboratory Last Values WBC 7.2 K/mm3 (4.0-10.0) 11/30/19 05:25 RBC 2.58 M/mm3 (4.00-5.60) L 11/30/19 05:25 Hgb 8.0 GM/dL (11.7-16.9) L 11/30/19 05:25 Hct 24.1 % (35.4-49) L 11/30/19 05:25 MCV 93.3 fl (80-96) 11/30/19 05:25 MCH 31.0 pg (25.7-33.7) 11/30/19 05:25 MCHC 33.3 g/dl (32.0-35.9) 11/30/19 05:25 RDW 16.1 % (11.9-15.9) H 11/30/19 05:25 Plt Count 246 K/MM3 (134-434) 11/30/19 05:25 MPV 7.3 fl (7.5-11.1) L 11/30/19 05:25 Absolute Neuts (auto) 5.4 K/mm3 (1.5-8.0) 11/30/19 05:25 Neutrophils % 74.5 % (42.8-82.8) 11/30/19 05:25 Lymphocytes % 12.9 % (8-40) D 11/30/19 05:25 Monocytes % 9.0 % (3.8-10.2) 11/30/19 05:25 Eosinophils % 2.9 % (0-4.5) D 11/30/19 05:25 Basophils % 0.7 % (0-2.0) 11/30/19 05:25 Nucleated RBC % 0 % (0-0) 11/30/19 05:25 PT with INR 15.10 SEC (9.7-13.0) H 11/30/19 05:25 INR 1.28 (0.83-1.09) H 11/30/19 05:25 PTT (Actin FS) 27.0 SECONDS (25.2-36.5) 11/19/19 05:30 Sodium 137 mmol/L (136-145) 11/30/19 05:25 Potassium 3.7 mmol/L (3.5-5.1) 11/30/19 05:25 Chloride 101 mmol/L (98-107) 11/30/19 05:25 Carbon Dioxide 30 mmol/L (21-32) 11/30/19 05:25 Anion Gap 5 MMOL/L (8-16) L 11/30/19 05:25 BUN 18.3 mg/dL (7-18) H 11/30/19 05:25 Creatinine 0.7 mg/dL (0.55-1.3) 11/30/19 05:25 Est GFR (CKD-EPI)AfAm 110.82 11/30/19 05:25 Est GFR (CKD-EPI)NonAf 95.61 11/30/19 05:25 POC Glucometer 142 UNITS (80-120) 11/22/19 18:29 Random Glucose 97 mg/dL (74-106) 11/30/19 05:25 Lactic Acid 1.2 mmol/L (0.4-2.0) 11/20/19 19:50 Calcium 7.6 mg/dL (8.5-10.1) L 11/30/19 05:25 Phosphorus 2.0 mg/dL (2.5-4.9) L 11/22/19 06:11 Magnesium 2.0 mg/dL (1.8-2.4) 11/22/19 06:11 Total Bilirubin 1.1 mg/dL (0.2-1) H 11/27/19 06:03 AST 46 U/L (15-37) H 11/27/19 06:03 ALT 44 U/L (13-61) 11/27/19 06:03 Alkaline Phosphatase 203 U/L (45-117) H 11/27/19 06:03 Total Protein 6.0 g/dl (6.4-8.2) L 11/27/19 06:03 Albumin 1.7 g/dl (3.4-5.0) L 11/27/19 06:03 Urine Color Yellow 11/21/19 06:00 Urine Appearance Clear 11/21/19 06:00 Urine pH 5.5 (5.0-8.0) 11/21/19 06:00 Ur Specific [place] 1.015 (1.010-1.035) 11/21/19 06:00 Urine Protein Negative (NEGATIVE) 11/21/19 06:00 Urine Glucose (UA) Negative (NEGATIVE) 11/21/19 06:00 Urine Ketones Negative (NEGATIVE) 11/21/19 06:00 Urine Blood Negative (NEGATIVE) 11/21/19 06:00 Urine Nitrite Negative (NEGATIVE) 11/21/19 06:00 Urine Bilirubin Negative (NEGATIVE) 11/21/19 06:00 Urine Urobilinogen 1.0 mg/dL (0.2-1.0) 11/21/19 06:00 Ur Leukocyte Esterase Negative (NEGATIVE) 11/21/19 06:00 Vancomycin Pre-Dose 11.5 ug/ml (5-10) H 11/18/19 12:30 Phenytoin 7.9 11/26/19 06:48 COVID-19 (CRYSTAL) Not detected (Not Detected) 11/26/19 15:45 Blood Type A POSITIVE 11/26/19 14:45 Antibody Screen Negative 11/26/19 14:45 Crossmatch See Detail 11/26/19 14:45 Active Medications Acetaminophen (Tylenol -) 650 mg PO Q6H PRN PRN Reason: Fever Al Hydroxide/Mg Hydroxide (Mylanta Oral Suspension -) 30 ml PO Q4H PRN PRN Reason: DYSPEPSIA Budesonide/Formoterol Fumarate (Symbicort 80/4.5mcg -) 2 puff IH BID [facility] Last Admin: 11/30/19 10:57 Dose: 2 inh Documented by: Finasteride (Proscar -) 5 mg PO DAILY [facility] Last Admin: 11/30/19 10:57 Dose: 5 mg Documented by: Hydromorphone HCl (Hydromorphone 10 Mg/50 Ml-Ns) 10 mg INVENTORY CONTROL CLERK INVENTORY CONTROL CLERK [facility]; Protocol Stop: 12/05/19 11:36 Last Admin: 11/28/19 12:55 Dose: 10 mg Documented by: Lactated Ringer's (Lactated Ringers Solution) 1,000 mls @ 125 mls/hr IV ASDIR [facility] Last Admin: 11/30/19 00:06 Dose: 125 mls/hr Documented by: Piperacillin Sod/Tazobactam (Sod 3.375 gm/ Dextrose) 50 mls @ 100 mls/hr IVPB Q8H-IV [facility]; Protocol Last Admin: 11/30/19 10:57 Dose: 100 mls/hr Documented by: Lactobacillus Acidophilus (Bacid -) 1 tab PO DAILY [facility] Last Admin: 11/30/19 10:57 Dose: 1 tab Documented by: Magnesium Hydroxide (Milk Of Magnesia -) 30 ml PO PRN PRN PRN Reason: CONSTIPATION Metoprolol Succinate (Toprol Xl -) 50 mg PO DAILY [facility] Last Admin: 11/30/19 10:57 Dose: 50 mg Documented by: Pantoprazole Sodium (Protonix -) 40 mg PO DAILY [facility] Last Admin: 11/30/19 10:57 Dose: 40 mg Documented by: Phenytoin Sodium (Dilantin -) 500 mg PO HS [facility] Last Admin: 11/29/19 21:28 Dose: 500 mg Documented by: Senna/Docusate Sodium (Pericolace -) 2 tablet PO BID [facility] Last Admin: 11/30/19 10:57 Dose: Not Given Documented by: Tamsulosin HCl (Flomax -) 0.4 mg PO DAILY@0830 [facility] Last Admin: 11/30/19 10:57 Dose: 0.4 mg Documented by: ASSESSMENT/PLAN: 68 year old M PMH L TKR 2019, DVT 2017 (on coumadin s/p IVC filter), HTN, hypercholesterolemia, GERD, seizure disorder, BPH, OA who presented with worsening L knee pain and swelling with drainage for several weeks. Pt admitted for infected L knee. He is s/p I&D of L knee, L TKA hardware removal, tibial tubercle osteotomy, and placement of L knee abx spacer on 11/18/2019. S/p I&D and exchange of abx spacer on 11/27. L infected periprosthetic knee - Pt s/p I&D left knee, removal L TKA hardware, placement left knee antibiotic spacer, tibial tubercle osteotomy on 11/17 - Monitor drain output, I/O's - Cultures: Ucx negative. Bcx negative thus far. -11/27 L knee wound negative -11/17 Tissue cx growing proteus, prevotella disiens, -11/16 L knee wound grew serratia, enterococcus faecalis, proteus. Bcx negative. Ucx negative. - c/w Zosyn, started 11/20/2019. Today is day 11. - Ortho following. Discussed case. - POD #2 for I&D and abx spacer exchange. 2U pRBC given in OR. Hold AC for now. - Heme/Onc consulted. Pending recommendations. - Pain control w/ INVENTORY CONTROL CLERK - c/w bowel regimen - PICC line placement - ID consulted. Recommended c/w zosyn. - c/w symbicort - c/w probiotics Anemia, improved - f/u CBC - Heme consulted. Recommended due to post-op, pt at high risk for acute DVT. If concern that therapeutic anticoagulation is causing significant bleeding, it can be stopped. However, recommended prophylactic chemical anticoagulation b/c pt high risk. Would also recommend vascular surgery input as patient may need IVC filter in the future. (KUB 11/19 did not show IVC). -1U FFP given. Seizure disorder -c/w dilantin 500 qHS H/o DVT - Duplex lower extremity shows L popliteal vein DVT that is old, but persistent - abdominal Xray did not detect IVC filter, however, not all can be detected with Xray - f/u repeat duplex Lower extremities, US abd to assess for IVC filter - records show h/o IVC placed here in 06/30/[address] Evans. Discussed case with Dr. Evans. Recommended no AC, due to IVC placed. HTN, Hypercholesterolemia - c/w metoprolol succinate 50 qD - resume home dose antihypertensives when possible BPH -c/w home tamsulosin, finasteride FEN - LR @ 125 - Monitor and replete electrolytes - Regular diet Ppx - DVT: SCDs - GI: Protonix Dispo: monitor in telemetry. Visit type - Emergency Visit Emergency Visit: Yes ED Registration Date: 11/17/19 Care time: The patient presented to the Emergency Department on the above date and was hospitalized for further evaluation of their emergent condition. - New Patient This patient is new to me today: No - Critical Care Critical Care patient: No - Medication Review Med list reviewed for High Risk Meds patients 65 and older: Yes ATTENDING PHYSICIAN STATEMENT I saw and evaluated the patient. I reviewed the resident's note and discussed the case with the resident. I agree with the resident's findings and plan as documented. SUBJECTIVE: OBJECTIVE: ASSESSMENT AND PLAN:
--- NOTE | 2019-11-30 16:09 | PN ---
Teaching Attending Note Name of Resident: Dilcia Gonzalez ATTENDING PHYSICIAN STATEMENT I saw and evaluated the patient. I reviewed the resident's note and discussed the case with the resident. I agree with the resident's findings and plan as documented. SUBJECTIVE: Patient is comfortable. NAd OBJECTIVE: Vital Signs Temperature 99 F 11/30/19 10:00 Pulse Rate 102 H 11/30/19 10:00 Respiratory Rate 20 11/30/19 10:00 Blood Pressure 122/65 11/30/19 10:00 O2 Sat by Pulse Oximetry (%) 100 11/30/19 10:00 PE:per resident's note Positive left knee draining blood. CBCD WBC 7.2 K/mm3 (4.0-10.0) 11/30/19 05:25 RBC 2.58 M/mm3 (4.00-5.60) L 11/30/19 05:25 Hgb 8.0 GM/dL (11.7-16.9) L 11/30/19 05:25 Hct 24.1 % (35.4-49) L 11/30/19 05:25 MCV 93.3 fl (80-96) 11/30/19 05:25 MCHC 33.3 g/dl (32.0-35.9) 11/30/19 05:25 RDW 16.1 % (11.9-15.9) H 11/30/19 05:25 Plt Count 246 K/MM3 (134-434) 11/30/19 05:25 MPV 7.3 fl (7.5-11.1) L 11/30/19 05:25 CMP Sodium 137 mmol/L (136-145) 11/30/19 05:25 Potassium 3.7 mmol/L (3.5-5.1) 11/30/19 05:25 Chloride 101 mmol/L (98-107) 11/30/19 05:25 Carbon Dioxide 30 mmol/L (21-32) 11/30/19 05:25 Anion Gap 5 MMOL/L (8-16) L 11/30/19 05:25 BUN 18.3 mg/dL (7-18) H 11/30/19 05:25 Creatinine 0.7 mg/dL (0.55-1.3) 11/30/19 05:25 Random Glucose 97 mg/dL (74-106) 11/30/19 05:25 Calcium 7.6 mg/dL (8.5-10.1) L 11/30/19 05:25 Total Bilirubin 1.1 mg/dL (0.2-1) H 11/27/19 06:03 AST 46 U/L (15-37) H 11/27/19 06:03 ALT 44 U/L (13-61) 11/27/19 06:03 Alkaline Phosphatase 203 U/L (45-117) H 11/27/19 06:03 Total Protein 6.0 g/dl (6.4-8.2) L 11/27/19 06:03 Albumin 1.7 g/dl (3.4-5.0) L 11/27/19 06:03 Current Medications Generic Name Dose Route Start Last Admin Trade Name Freq PRN Reason Stop Dose Admin Acetaminophen 650 mg 11/28/19 13:25 Tylenol - PO Q6H PRN Fever Al Hydroxide/Mg Hydroxide 30 ml 11/28/19 13:25 Mylanta Oral Suspension - PO Q4H PRN DYSPEPSIA Budesonide/Formoterol Fumarate 2 puff 11/28/19 22:00 11/30/19 10:57 Symbicort 80/4.5mcg - IH 2 inh BID [facility] Administration Finasteride 5 mg 11/29/19 10:00 11/30/19 10:57 Proscar - PO 5 mg DAILY [facility] Administration Hydromorphone HCl 10 mg 11/28/19 13:25 11/28/19 12:55 Hydromorphone 10 Mg/50 Ml-Ns [employer] CONTROLLER 12/05/19 11:36 10 mg CITY CONTROLLER [facility] Administration Protocol Lactated Ringer's 1,000 mls @ 125 mls/hr 11/28/19 13:25 11/30/19 00:06 Lactated Ringers Solution IV 125 mls/hr ASDIR [facility] Administration Piperacillin Sod/Tazobactam 50 mls @ 100 mls/hr 11/28/19 18:00 11/30/19 10:57 Sod 3.375 gm/ Dextrose IVPB 100 mls/hr Q8H-IV [facility] Administration Protocol Lactobacillus Acidophilus 1 tab 11/29/19 10:00 11/30/19 10:57 Bacid - PO 1 tab DAILY [facility] Administration Magnesium Hydroxide 30 ml 11/28/19 13:25 Milk Of Magnesia - PO PRN PRN CONSTIPATION Metoprolol Succinate 50 mg 11/29/19 10:00 11/30/19 10:57 Toprol Xl - PO 50 mg DAILY [facility] Administration Pantoprazole Sodium 40 mg 11/29/19 10:00 11/30/19 10:57 Protonix - PO 40 mg DAILY [facility] Administration Phenytoin Sodium 500 mg 11/28/19 22:00 11/29/19 21:28 Dilantin - PO 500 mg HS [facility] Administration Senna/Docusate Sodium 2 tablet 11/28/19 22:00 11/30/19 10:57 Pericolace - PO Not Given BID [facility] Tamsulosin HCl 0.4 mg 11/29/19 08:30 11/30/19 10:57 Flomax - PO 0.4 mg DAILY@0830 [facility] Administration Home Medications Medication Instructions Recorded Phenytoin Sodium Extended 500 mg PO HS #90 capsule 07/15/18 Warfarin Na [Coumadin -] 3 mg PO HS 07/24/18 Amlodipine-Olmesartan 10-40 mg 1 tab PO DAILY 11/11/19 Enoxaparin [Lovenox -] 60 mg SQ Q12H 11/11/19 Finasteride [Proscar] 5 mg PO DAILY 11/11/19 Fluticasone/Vilanterol [Breo 1 each IH HS 11/11/19 Ellipta 100-25 Mcg INH] Hydrochlorothiazide [Hctz -] 12.5 mg PO DAILY 11/11/19 Metoprolol Succinate 50 mg PO DAILY 11/11/19 Tamsulosin HCl [Flomax] 0.4 mg PO DAILY 11/11/19 Tramadol HCl 50 mg PO TID 11/18/19 Microbiology 11/28/19 11:13 Knee - Left Gram Stain - Final 11/28/19 11:13 Knee - Left Wound Culture - Preliminary No growth. 11/18/19 18:31 Tissue-Other AFB Smear Concentration - Final 11/18/19 18:31 Tissue-Other Mycobacterial Culture - Preliminary 11/20/19 19:35 Blood - Peripheral Venous Blood Culture - Final NO GROWTH AFTER 5 DAYS INCUBATION 11/20/19 19:50 Blood - Peripheral Venous Blood Culture - Final NO GROWTH AFTER 5 DAYS INCUBATION 11/18/19 18:31 Tissue-Other Gram Stain - Final 11/18/19 18:31 Tissue-Other Tissue Culture - Final Proteus Mirabilis 11/18/19 18:31 Tissue-Other Anaerobic Culture - Final Prevotella Disiens 11/18/19 18:31 Tissue-Other LIDIA Preparation - Preliminary 11/18/19 18:31 Tissue-Other Fungal Culture - Preliminary 11/17/19 23:20 Blood - Peripheral Venous Blood Culture - Final NO GROWTH AFTER 5 DAYS INCUBATION 11/17/19 23:20 Blood - Peripheral Venous Blood Culture - Final NO GROWTH AFTER 5 DAYS INCUBATION 11/18/19 16:37 Knee - Left AFB Smear Concentration - Final 11/18/19 16:37 Knee - Left Mycobacterial Culture - Preliminary 11/21/19 06:00 Urine - Urine Clean Catch Urine Culture - Final NO GROWTH OBTAINED 11/18/19 16:37 Knee - Left Gram Stain - Final 11/18/19 16:37 Knee - Left Wound Culture - Final Proteus Mirabilis 11/17/19 23:20 Knee - Left Gram Stain - Final 11/17/19 23:20 Knee - Left Wound Culture - Final Serratia Marcescens Enterococcus Faecalis Proteus Mirabilis 11/18/19 19:51 Urine - Urine - Catheterized Urine Culture - Final NO GROWTH OBTAINED 11/18/19 16:37 Knee - Left LIDIA Preparation - Preliminary 11/18/19 16:37 Knee - Left Fungal Culture - Preliminary ASSESSMENT AND PLAN: This patient is a 68yom with PMHx of Left TKR 2019, DVT 2017 (on coumadin s/p IVC filter), HTN, HLD, GERD, seizure disorder, BPH, OA who presented with worsening L knee pain and swelling with drainage for several weeks. Pt is admitted for infected L knee. He is s/p I&D of L knee, L TKA hardware removal, tibial tubercle osteotomy, and placement of L knee abx spacer on 11/19/2019. # POD#11 s/p I&D with removal of hardware of left knee due to having L infected periprosthetic knee s/p placement left knee antibiotic spacer on IV zosyn , ID on the case , POD#1 Hematoma of left knee, patient has hx of h ematoma since last year 2019 admissions, also has hx of chronic DVT with IVC filter was placed by Dr Evans in 06/30/2018. as per Dr Evans no AC is needed. will give him another unit of FFp since continues to drain bloody drainage. follow H/H and transfuse and FFp as needed. #s/p Acute blood loss: type and screen for 2 units , repeat level q12h, transfuse below 8.0. # Seizure disorder continue dilantin , dilantin level 7.9 # H/o DVT: Duplex lower extremity shows L popliteal vein DVT that is old, but persistent, dc'd coumadin and Lovenox ,and aspirin , patient has an IVC filter. continue to monitor H/H and transfuse and FFp as needed ,follow PT/INR in am #Hx of HTN, HLD, continue home meds # Hx of BPH continue home tamsulosin, finasteride DVT Px: no ac since patient is bleeding in his left knee GI Px: PPI INR ,cbc in am, transfuse if hemoglobin below 8
[2019-11-30] MEDS: HYDROmorphone *PCA* 10MG/50ML DISP.SYRIN PCA SCH ×2 (20:52→20:58)
[2019-11-30] MEDS: PHENYTOIN NA EXTENDED 100 MG CAPSULE (FP) PO SCH (21:01)
[2019-12-01] MEDS ORDERED: DEXTROSE 5%-WATER - 50 ML IVPB ONE ×3 (02:10→16:31)
[2019-12-01] MEDS ORDERED: PIPERACILLIN/TAZOBACTAM 3.375 GM VIAL IVPB ONE ×3 (02:10→16:31)
[2019-12-01] MEDS: PIPERACILLIN/TAZOB 3.375 GM 3.375 GM in DEXTROSE 5%-WATER - 50 ML IVPB SCH ×3 (02:15→16:59)
[2019-12-01 07:03] LABS: HEMATOCRIT 24.3 % (35.4-49); HEMOGLOBIN 8.1 GM/dL (11.7-16.9); MCH 31.9 pg (25.7-33.7); MCHC 33.4 g/dl (32.0-35.9); MEAN CELL VOLUME 95.5 fl (80-96); PLATELET COUNT 246 K/MM3 (134-434); RBC 2.54 M/mm3 (4.00-5.60); RDW 17.5 % (11.9-15.9); WHITE BLOOD COUNT 6.9 K/mm3 (4.0-10.0)
[2019-12-01 07:31] LABS: BLOOD UREA NITROGEN 14.1 mg/dL (7-18); CALCIUM 7.7 mg/dL (8.5-10.1); CREATININE 0.6 mg/dL (0.55-1.3); POTASSIUM 3.5 mmol/L (3.5-5.1)
--- NOTE | 2019-12-01 08:50 | PN ---
Progress Note, Physician History of Present Illness: stable s/p washout repeat cx noted - Current Medication List Current Medications: Active Medications Acetaminophen (Tylenol -) 650 mg PO Q6H PRN PRN Reason: Fever Al Hydroxide/Mg Hydroxide (Mylanta Oral Suspension -) 30 ml PO Q4H PRN PRN Reason: DYSPEPSIA Budesonide/Formoterol Fumarate (Symbicort 80/4.5mcg -) 2 puff IH BID [facility] Last Admin: 11/30/19 21:02 Dose: 2 puff Documented by: Finasteride (Proscar -) 5 mg PO DAILY [facility] Last Admin: 11/30/19 10:57 Dose: 5 mg Documented by: Hydromorphone HCl (Hydromorphone 10 Mg/50 Ml-Ns) 10 mg WATCH MECHANIC WATCH MECHANIC [facility]; Protocol Stop: 12/05/19 11:36 Last Admin: 11/30/19 20:58 Dose: Not Given Documented by: Lactated Ringer's (Lactated Ringers Solution) 1,000 mls @ 125 mls/hr IV ASDIR [facility] Last Admin: 11/30/19 22:34 Dose: 125 mls/hr Documented by: Piperacillin Sod/Tazobactam (Sod 3.375 gm/ Dextrose) 50 mls @ 100 mls/hr IVPB Q8H-IV [facility]; Protocol Last Admin: 12/01/19 02:15 Dose: 100 mls/hr Documented by: Lactobacillus Acidophilus (Bacid -) 1 tab PO DAILY [facility] Last Admin: 11/30/19 10:57 Dose: 1 tab Documented by: Magnesium Hydroxide (Milk Of Magnesia -) 30 ml PO PRN PRN PRN Reason: CONSTIPATION Metoprolol Succinate (Toprol Xl -) 50 mg PO DAILY [facility] Last Admin: 11/30/19 10:57 Dose: 50 mg Documented by: Pantoprazole Sodium (Protonix -) 40 mg PO DAILY [facility] Last Admin: 11/30/19 10:57 Dose: 40 mg Documented by: Phenytoin Sodium (Dilantin -) 500 mg PO [facility] Last Admin: 11/30/19 21:01 Dose: 500 mg Documented by: Senna/Docusate Sodium (Pericolace -) 2 tablet PO BID [facility] Last Admin: 11/30/19 21:11 Dose: Not Given Documented by: Tamsulosin HCl (Flomax -) 0.4 mg PO DAILY@0830 [facility] Last Admin: 11/30/19 10:57 Dose: 0.4 mg Documented by: - Objective Vital Signs: Vital Signs Temperature 98.8 F 12/01/19 05:32 Pulse Rate 93 H 12/01/19 06:00 Respiratory Rate 18 12/01/19 06:00 Blood Pressure 125/73 12/01/19 06:00 O2 Sat by Pulse Oximetry (%) 95 12/01/19 06:00 Constitutional: Yes: No Distress, Calm Cardiovascular: Yes: S1, S2 Respiratory: Yes: Regular, CTA Bilaterally Gastrointestinal: Yes: Normal Bowel Sounds, Soft Musculoskeletal: Yes: WNL Extremities: Yes: Other Wound/Incision: Yes: Dressing Dry and Intact Neurological: Yes: Alert, Oriented Psychiatric: Yes: Alert, Oriented Labs: CBC, BMP 12/01/19 06:35 12/01/19 06:35 INR, PTT INR 1.28 (0.83-1.09) H 11/30/19 05:25 Assessment/Plan Problem List - Problems (1) Acute blood loss anemia Code(s): D62 - ACUTE POSTHEMORRHAGIC ANEMIA (2) Infection of prosthetic left knee joint Code(s): T84.54XA - INFECT/INFLM REACTION DUE TO INTERNAL LEFT KNEE PROSTH, INIT (3) Left leg DVT Code(s): I82.402 - ACUTE EMBOLISM AND THOMBOS UNSP DEEP VEINS OF L LOW EXTREM (4) Seizure disorder Code(s): G40.909 - EPILEPSY, UNSP, NOT INTRACTABLE, WITHOUT STATUS EPILEPTICUS (5) Anemia Code(s): D64.9 - ANEMIA, UNSPECIFIED (6) BPH (benign prostatic hyperplasia) Code(s): N40.0 - BENIGN PROSTATIC HYPERPLASIA WITHOUT LOWER URINRY TRACT SYMP (7) Hypercholesteremia Code(s): E78.00 - PURE HYPERCHOLESTEROLEMIA, UNSPECIFIED (8) Osteoarthritis of left knee Code(s): M17.12 - UNILATERAL PRIMARY OSTEOARTHRITIS, LEFT KNEE Assessment/Plan Lt knee prosthesis infection s/p hardware removal s/p washout/I+D/spacer POD #1 LLE DVT -- continue Zosyn complete the course
[2019-12-01] MEDS: TAMSULOSIN HCL 0.4 MG CAP PO SCH (09:42)
[2019-12-01] MEDS: PANTOPRAZOLE 40 MG TABLET PO SCH (09:42)
[2019-12-01] MEDS: FINASTERIDE 5 MG TABLET (FP) PO SCH (09:42)
[2019-12-01] MEDS: SENNOSIDES/DOCUSATE COMBO (SENNA PLUS) TABLET (UD) PO SCH ×2 (09:42→21:24)
[2019-12-01] MEDS: BUDESONIDE/FORMETEROL FUMARATE 80/4.5 mcg INHALER IH SCH ×2 (09:45→21:20)
[2019-12-01] MEDS: LACTOBACILLUS ACIDOPHILUS 1 TABLET PO SCH (09:45)
[2019-12-01] MEDS: HYDROmorphone *PCA* 10MG/50ML DISP.SYRIN PCA SCH ×2 (14:16→22:12)
[2019-12-01] MEDS: LACTATED RINGERS SOLUTION 1,000 ML IV SCH (14:17)
--- NOTE | 2019-12-01 14:42 | PN ---
Progress Note (short form) - Note Progress Note: Surgery POD #3 Hematoma evacuation of left knee s/p 1. I&D left knee. 2. Removal L TKA hardware. 3. Placement left knee antibiotic spacer. 4. Tibial tubercle osteotomy Patient seen and examined on rounds. He is sleeping comfortably but wakes for the exam. He says his pain has greatly improved since the washout over the weekens and is now being controlled with FISHER DIVING. His H&H has remained stable since all his AC has been stopped. He is tolerating his diet and he denies any dizziness, blurred vision, CP, SOB, N/V, fever or chills. EMR records show h/o IVC placed here in 06/30/[address] Evans at [place] [address]. Case reviewed with Dr. Evans. Recommended no AC, due to IVC placed. Vital Signs Temp 98.9 F 12/01/19 09:00 Pulse 95 H 12/01/19 09:00 Resp 20 12/01/19 09:00 BP 129/69 12/01/19 09:00 Pulse Ox 95 12/01/19 09:00 Intake & Output 11/30/19 12/01/19 12/01/19 23:59 11:59 23:59 Intake Total 1900 1375 Output Total 400 500 Balance 1500 875 Intake: IV 1000 1375 Lactated Ringers Solution 1000 1375 1,000 ml @ 125 mls/hr IV ASDIR FERNANDA Rx#: [id number] IVPB 100 Oral 800 Output: Urine 400 500 Void 400 500 Other: Voiding Method Urinal Urinal # Unmeasured Voids Void 4 Bowel Movement No # Bowel Movements 4 Body Mass Index (BMI) 34.8 CBC, BMP 12/01/19 06:35 12/01/19 06:35 Total drain output 135cc @ 24 hours PE: A&Ox3, NAD Unlabored resp on RA Left LE: dressing c/d/i with dipak wrap Diffuse edema throughout, Three hemavac drains in good position and draining. Foot and toes warm and well perfused with +2 dp pulse and PT pulses patient able to move toes without limitation. Right LE compartments soft, supple and non-tender with +2 DP pulses Problem List - Problems (1) Infection of prosthetic left knee joint Assessment/Plan: A/P: 68 yo male POD #3 hematoma evacuation and s/p I&D left knee. Removal L TKA hardware. Placement left knee antibiotic spacer. Tibial tubercle osteotomy. Prosthetic joint infection with acute blood loss anemia, s/p multiple transfusions, now with H&H stable. IVF filter placement confirmed. -Continue to hold all AC- IVC filter in place - Trend daily labs, include coags -Elevate Left LE while in bed -Pain control FISHER DIVING -DVT PPx: -hematology reviewed and appreciated- chronic L popliteal vein DVT with no acute intervention-follow up with vascular as outpatient. -Mechanical: BARB's, SCD's, IVC Filter -Incentive spirometry q15 min. -Pack knee with Ice- keep dressings dry -PT/OT/Rehab, OOB. and OOB to chair for meals -Strict NWB LLE. -IV Abx per ID - Patient will need PICC line upon d/c -f/u drains output. -Care per medical hospitalist Evaluation and plan discussed with Dr. Hilario Langston, Dr. Jonathan Langston, and medical team. Code(s): T84.54XA - INFECT/INFLM REACTION DUE TO INTERNAL LEFT KNEE PROSTH, INIT (2) Left leg DVT Code(s): I82.402 - ACUTE EMBOLISM AND THOMBOS UNSP DEEP VEINS OF L LOW EXTREM (3) Wound dehiscence Code(s): T81.30XA - DISRUPTION OF WOUND, UNSPECIFIED, INITIAL ENCOUNTER
--- NOTE | 2019-12-01 16:20 | PN ---
Physical Exam: SUBJECTIVE: Patient seen and examined. No acute events overnight. Pain rated 5/10. Stated that DEAN is helping control his pain. OBJECTIVE: Vital Signs Period Temp Pulse Resp BP Sys/Gee Pulse Ox Last 24 Hr 98.8 F-99.5 F 90-101 18-20 109-129/60-74 93-100 GENERAL: AAOx3, not in acute distress. HEENT: NCAT, EOMI, moist mucus membranes. CARDIAC: regular rate and rhythm. S1, S2 present. No murmurs. RESPIRATORY: CTA b/l, no wheezes. ABDOMEN: Obese, non-distended, non-tender to palpation. Normoactive bowel sounds. EXTREMITIES: LLE bandaged and immobilized. 3 drains visible next to leg. Draining sanguineous fluid. SKIN: Warm, dry. NEUROLOGICAL: Sensation and movement intact. Moves toes spontaneously. CBC, BMP 12/01/19 06:35 12/01/19 06:35 Active Medications Acetaminophen (Tylenol -) 650 mg PO Q6H PRN PRN Reason: Fever Al Hydroxide/Mg Hydroxide (Mylanta Oral Suspension -) 30 ml PO Q4H PRN PRN Reason: DYSPEPSIA Budesonide/Formoterol Fumarate (Symbicort 80/4.5mcg -) 2 puff IH BID [facility] Last Admin: 12/01/19 09:45 Dose: 2 puff Documented by: Finasteride (Proscar -) 5 mg PO DAILY [facility] Last Admin: 12/01/19 09:42 Dose: 5 mg Documented by: Hydromorphone HCl (Hydromorphone 10 Mg/50 Ml-Ns) 10 mg DEAN DEAN [facility]; Protocol Stop: 12/05/19 11:36 Last Admin: 12/01/19 14:16 Dose: Not Given Documented by: Lactated Ringer's (Lactated Ringers Solution) 1,000 mls @ 125 mls/hr IV ASDIR [facility] Last Admin: 12/01/19 14:17 Dose: 125 mls/hr Documented by: Piperacillin Sod/Tazobactam (Sod 3.375 gm/ Dextrose) 50 mls @ 100 mls/hr IVPB Q8H-IV [facility]; Protocol Last Admin: 12/01/19 16:59 Dose: 100 mls/hr Documented by: Lactobacillus Acidophilus (Bacid -) 1 tab PO DAILY [facility] Last Admin: 12/01/19 09:45 Dose: 1 tab Documented by: Magnesium Hydroxide (Milk Of Magnesia -) 30 ml PO PRN PRN PRN Reason: CONSTIPATION Metoprolol Succinate (Toprol Xl -) 50 mg PO DAILY [facility] Last Admin: 12/01/19 09:42 Dose: 50 mg Documented by: Pantoprazole Sodium (Protonix -) 40 mg PO DAILY [facility] Last Admin: 12/01/19 09:42 Dose: 40 mg Documented by: Phenytoin Sodium (Dilantin -) 500 mg PO HS [facility] Last Admin: 11/30/19 21:01 Dose: 500 mg Documented by: Senna/Docusate Sodium (Pericolace -) 2 tablet PO BID [facility] Last Admin: 12/01/19 09:42 Dose: Not Given Documented by: Tamsulosin HCl (Flomax -) 0.4 mg PO DAILY@0830 [facility] Last Admin: 12/01/19 09:42 Dose: 0.4 mg Documented by: ASSESSMENT/PLAN: 68 year old M PMH L TKR 2019, DVT 2017 (on coumadin s/p IVC filter), HTN, hypercholesterolemia, GERD, seizure disorder, BPH, OA who presented with worsening L knee pain and swelling with drainage for several weeks. Pt admitted for infected L knee. He is s/p I&D of L knee, L TKA hardware removal, tibial tubercle osteotomy, and placement of L knee abx spacer on 11/18/2019. S/p I&D and exchange of abx spacer on 11/27. L infected periprosthetic knee - Pt s/p I&D left knee, removal L TKA hardware, placement left knee antibiotic spacer, tibial tubercle osteotomy on 11/17 - Monitor drain output, I/O's - Cultures: Ucx negative. Bcx negative thus far. -11/27 L knee wound negative -11/17 Tissue cx growing proteus, prevotella disiens, -11/16 L knee wound grew serratia, enterococcus faecalis, proteus. Bcx negative. Ucx negative. - c/w Zosyn, started 11/20/2019. Today is day 12. - Ortho following. Discussed case. - POD #3 for I&D and abx spacer exchange. - Possible d/c drains tomorrow - 2nd stage revision in approximately 3 months depending on skin - Pain control w/ DEAN - c/w bowel regimen - PICC line placement - ID consulted. Recommended c/w zosyn. - c/w symbicort - c/w probiotics - c/w tylenol PRN fever/pain Anemia, improved - f/u CBC - Heme consulted. Recommended due to post-op, pt at high risk for acute DVT. If concern that therapeutic anticoagulation is causing significant bleeding, it can be stopped. However, recommended prophylactic chemical anticoagulation b/c pt high risk. Would also recommend vascular surgery input as patient may need IVC filter in the future. (KUB 11/19 did not show IVC). -1U FFP given. Seizure disorder -c/w dilantin 500 qHS H/o DVT - Duplex lower extremity shows L popliteal vein DVT that is old, but persistent - abdominal Xray did not detect IVC filter, however, not all can be detected with Xray - records show h/o IVC placed here in 06/30/[address] Evans. Discussed case with Dr. Evans. Recommended no AC, due to IVC placed. HTN, Hypercholesterolemia - c/w metoprolol succinate 50 qD - resume home dose antihypertensives when possible BPH -c/w home tamsulosin, finasteride FEN - No standing fluids - Monitor and replete electrolytes - Regular diet Ppx - DVT: SCDs, IVC filter - GI: Protonix Called (Ginger) and updated her on pt's status. Dispo: transfer to med/surg. Visit type - Emergency Visit Emergency Visit: Yes ED Registration Date: 11/17/19 Care time: The patient presented to the Emergency Department on the above date and was hospitalized for further evaluation of their emergent condition. - New Patient This patient is new to me today: No - Critical Care Critical Care patient: No - Medication Review Med list reviewed for High Risk Meds patients 65 and older: Yes ATTENDING PHYSICIAN STATEMENT I saw and evaluated the patient. I reviewed the resident's note and discussed the case with the resident. I agree with the resident's findings and plan as documented. SUBJECTIVE: OBJECTIVE: ASSESSMENT AND PLAN:
--- NOTE | 2019-12-01 17:52 | PN ---
Progress Note (short form) - Note Progress Note: On Telemetry Monitored setting Apyrexial WCC normal Cultures no growth CVS Not hyperdynamic Perfusing well Urine output 1100 Stable RESP AE equal bilaterally ABD Soft Neuro Motor sensory fully intact MSkeletal Drains in situ all <50 mls Duplex -ve Limb bandage dry Knee immobilzer in situ Labs Hb holding above 8 ASSESS Doing well Bleeding appears to be cotrolled No DVT Infection appears to be controlled PLAN ? D/C drains tomorrow Continue Antibiotics D/C planning needs placemrnt PICC line For 2nd stage revision inapprox 3 months depending on skin
--- NOTE | 2019-12-01 19:46 | PN ---
Teaching Attending Note Name of Resident: Dilcia Gonzalez ATTENDING PHYSICIAN STATEMENT I saw and evaluated the patient. I reviewed the resident's note and discussed the case with the resident. I agree with the resident's findings and plan as documented. SUBJECTIVE: has pain in L knee. no abd pain, cp or SOB OBJECTIVE: NAd. awake alert, CV: RRR Lungs: CATB Abd: sfot, NT, Nd, NL BS LLE in a long dressing and a brace from upper thigh to foot. can move toes, has nl sensation in L toes. 3 drains with blood in bag and tubes RLE with no edema o erythema . ASSESSMENT AND PLAN: Unfortunate 68 y/o man with Left TKR 2018, DVT 2016 (on coumadin s/p IVC filter), HTN, HLD, GERD, seizure disorder, BPH, OA who presented with pain in L knee and was found to have prosthetic infection , now s/p I&D, removal of prosthesis and Abx spaced on 11/17, then evacuation of hematoma and revision of spaced on 11/27. 1- L knee prosthesis infection : s/p I&D, removal of prosthesis and Abx spaced on 11/17. 2- S/p L knee hematoma , s/p evacuation of hematoma and revision of spaced on 11/27. 3- s/p acute blood loss anemia 4- chronic L popletial DVT. s/p IVC filter 07/04 5- h/o seizure DO plan : - cxs reviewed. - cont zosyn - cont to hold AC due to L knee hematom and persistent bloody drainage - per Dr. Sampson d/w Dr. amaya, No need fro AC as has IVCF - no Weight barinf . can move to chair - cont dilaudid [employer] - US of L and RLE reviewed. - Monitor HB - cont home dilantin - cont home finasteride and flomax - SCD to R leg - Wound care and dressing changes on L per surgery - cont toprol - dc IVF LR T
[2019-12-01] MEDS: PHENYTOIN NA EXTENDED 100 MG CAPSULE (FP) PO SCH (21:18)
[2019-12-02] MEDS ORDERED: PIPERACILLIN/TAZOBACTAM 3.375 GM VIAL IVPB ONE ×3 (02:44→17:00)
[2019-12-02] MEDS ORDERED: DEXTROSE 5%-WATER - 50 ML IVPB ONE ×3 (02:45→17:00)
[2019-12-02] MEDS: PIPERACILLIN/TAZOB 3.375 GM 3.375 GM in DEXTROSE 5%-WATER - 50 ML IVPB SCH ×3 (02:47→17:23)
[2019-12-02] MEDS: FINASTERIDE 5 MG TABLET (FP) PO SCH (09:36)
[2019-12-02] MEDS: PANTOPRAZOLE 40 MG TABLET PO SCH (09:37)
[2019-12-02] MEDS: BUDESONIDE/FORMETEROL FUMARATE 80/4.5 mcg INHALER IH SCH ×2 (09:37→21:49)
[2019-12-02] MEDS: TAMSULOSIN HCL 0.4 MG CAP PO SCH (09:37)
[2019-12-02] MEDS: LACTOBACILLUS ACIDOPHILUS 1 TABLET PO SCH (09:37)
[2019-12-02] MEDS: SENNOSIDES/DOCUSATE COMBO (SENNA PLUS) TABLET (UD) PO SCH ×2 (09:38→21:49)
[2019-12-02 09:41] LABS: HEMOGLOBIN 9.3 GM/dL (11.7-16.9); MCH 31.9 pg (25.7-33.7); MCHC 33.3 g/dl (32.0-35.9); MEAN CELL VOLUME 95.7 fl (80-96); MEAN PLT VOLUME 7.3 fl (7.5-11.1); PLATELET COUNT 271 K/MM3 (134-434); RBC 2.92 M/mm3 (4.00-5.60); RDW 17.9 % (11.9-15.9); WHITE BLOOD COUNT 7.5 K/mm3 (4.0-10.0)
[2019-12-02 10:12] LABS: BLOOD UREA NITROGEN 13.8 mg/dL (7-18); CALCIUM 7.7 mg/dL (8.5-10.1); CREATININE 0.8 mg/dL (0.55-1.3); POTASSIUM 3.8 mmol/L (3.5-5.1)
[2019-12-02] MEDS ORDERED: MORPHINE SULFATE 2 MG/ML VIAL IVPUSH PRN (13:12)
[2019-12-02] MEDS ORDERED: oxyCODONE HCL 5 MG TABLET PO PRN (13:35)
--- NOTE | 2019-12-02 15:19 | PN ---
Physical Exam: SUBJECTIVE: Patient seen and examined. Stated that his LLE pain is 3/10 today. Denies fevers, chills, SOB, c/p. OBJECTIVE: Vital Signs Period Temp Pulse Resp BP Sys/Gee Pulse Ox Last 24 Hr 97.9 F-98.9 F 86-102 18-18 120-150/65-95 95-99 GENERAL: Somnolent, but arousable. HEENT: NCAT, EOMI, moist mucus membranes. CARDIAC: regular rate and rhythm. S1, S2 present. No murmurs. RESPIRATORY: CTA b/l, no accessory muscle use ABDOMEN: Obese, non-distended, non-tender to palpation. Normoactive bowel sounds. EXTREMITIES: LLE bandaged and immobilized. 3 drains visible next to leg. Draining sanguineous fluid. SKIN: Warm, dry. NEUROLOGICAL: Sensation and movement intact. Moves toes spontaneously. CBC, BMP 12/02/19 08:30 12/02/19 08:30 Active Medications Acetaminophen (Tylenol -) 650 mg PO Q6H PRN PRN Reason: Fever Acetaminophen (Tylenol -) 325 mg PO Q4H PRN PRN Reason: PAIN 1-3 Al Hydroxide/Mg Hydroxide (Mylanta Oral Suspension -) 30 ml PO Q4H PRN PRN Reason: DYSPEPSIA Budesonide/Formoterol Fumarate (Symbicort 80/4.5mcg -) 2 puff IH BID [facility] Last Admin: 12/02/19 09:37 Dose: 2 puff Documented by: Finasteride (Proscar -) 5 mg PO DAILY [facility] Last Admin: 12/02/19 09:36 Dose: 5 mg Documented by: Piperacillin Sod/Tazobactam (Sod 3.375 gm/ Dextrose) 50 mls @ 100 mls/hr IVPB Q8H-IV [facility]; Protocol Last Admin: 12/02/19 09:38 Dose: 100 mls/hr Documented by: Lactobacillus Acidophilus (Bacid -) 1 tab PO DAILY [facility] Last Admin: 12/02/19 09:37 Dose: 1 tab Documented by: Magnesium Hydroxide (Milk Of Magnesia -) 30 ml PO PRN PRN PRN Reason: CONSTIPATION Metoprolol Succinate (Toprol Xl -) 50 mg PO DAILY [facility] Last Admin: 12/02/19 09:36 Dose: 50 mg Documented by: Morphine Sulfate (Morphine Sulfate) 2 mg IVPUSH Q4H PRN PRN Reason: PAIN LEVEL 4-6 Oxycodone HCl (Roxicodone -) 5 mg PO Q6H PRN PRN Reason: PAIN 1-3 Pantoprazole Sodium (Protonix -) 40 mg PO DAILY [facility] Last Admin: 12/02/19 09:37 Dose: 40 mg Documented by: Phenytoin Sodium (Dilantin -) 500 mg PO HS [facility] Last Admin: 12/01/19 21:18 Dose: 500 mg Documented by: Senna/Docusate Sodium (Pericolace -) 2 tablet PO BID [facility] Last Admin: 12/02/19 09:38 Dose: Not Given Documented by: Tamsulosin HCl (Flomax -) 0.4 mg PO DAILY@0830 [facility] Last Admin: 12/02/19 09:37 Dose: 0.4 mg Documented by: ASSESSMENT/PLAN: 68 year old M PMH L TKR 2018, DVT 2017 (on coumadin s/p IVC filter), HTN, hypercholesterolemia, GERD, seizure disorder, BPH, OA who presented with worsening L knee pain and swelling with drainage for several weeks. Pt admitted for infected L knee. He is s/p I&D of L knee, L TKA hardware removal, tibial tubercle osteotomy, and placement of L knee abx spacer on 11/18/2019. S/p I&D and exchange of abx spacer on 11/27. L infected periprosthetic knee - Pt s/p I&D left knee, removal L TKA hardware, placement left knee antibiotic spacer, tibial tubercle osteotomy on 11/17 - Monitor drain output, I/O's - L knee wound culture negative - ID consulted. - will c/w Zosyn, started 11/20/2019. Today is day 13. - will have PICC line placement at some point - Ortho consulted. Pending recommendations. -To remove drain when appropriate. Can be OOB to chair during meals, strict non-weight bearing of LLE. 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 Pain control w/ oxycodone 5mg q6H, acetaminophen 325 PRN; IV morphine 2mg q4H PRN - will c/w bowel regimen - c/w symbicort - c/w probiotics - c/w tylenol PRN fever/pain Anemia, improved - f/u CBC -d/c AC as per Dr. Evans (vascular) Seizure disorder -c/w dilantin 500 qHS H/o DVT - records show h/o IVC placed here in 06/30/[address] Evans. Discussed case with Dr. Evans. Recommended no AC, due to IVC placed. HTN, Hypercholesterolemia - c/w metoprolol succinate 50 qD, HCTZ 12.5mg qD BPH -c/w home tamsulosin, finasteride FEN - No standing fluids - Monitor and replete electrolytes - Regular diet Ppx - DVT: SCD R leg, IVC filter - GI: Protonix Dispo: Continue to monitor. Visit type - Emergency Visit Emergency Visit: Yes ED Registration Date: 11/17/19 Care time: The patient presented to the Emergency Department on the above date and was hospitalized for further evaluation of their emergent condition. - New Patient This patient is new to me today: No - Critical Care Critical Care patient: No - Medication Review Med list reviewed for High Risk Meds patients 65 and older: Yes ATTENDING PHYSICIAN STATEMENT I saw and evaluated the patient. I reviewed the resident's note and discussed the case with the resident. I agree with the resident's findings and plan as documented. SUBJECTIVE: OBJECTIVE: ASSESSMENT AND PLAN:
--- NOTE | 2019-12-02 16:13 | PN ---
Progress Note (short form) - Note Progress Note: Pt is resting L drains in place, sanguinous last transfusion 9/12 h/h up today per vascular IVCF in place duplex- no RLE dvt Imp: s/p knee procedure w post-op bleeding. Bkd chronic dvts on long-term a/c. holding a/c w plans to resume once no further bleeding
--- NOTE | 2019-12-02 18:15 | PN ---
Teaching Attending Note Name of Resident: Dilcia Gonzalez ATTENDING PHYSICIAN STATEMENT I saw and evaluated the patient. I reviewed the resident's note and discussed the case with the resident. I agree with the resident's findings and plan as documented. SUBJECTIVE: No fever or chills, has R sided knee pain. no SOb , no N/V OBJECTIVE: NAd. awake alert, cooperative CV: RRR Lungs: CATB Abd: soft, NT, Nd, NL BS LLE in a long dressing and a brace from upper thigh to foot. can move toes, has nl sensation in L toes. 3 drains with blood in bag and tubes RLE with no edema or erythema . ASSESSMENT AND PLAN: Unfortunate 68 y/o man with Left TKR 2018, DVT 2016 (on coumadin s/p IVC filter), HTN, HLD, GERD, seizure disorder, BPH, OA who presented with pain in L knee and was found to have prosthetic infection , now s/p I&D, removal of prosthesis and Abx spaced on 11/17, then evacuation of hematoma and revision of spaced on 11/27. 1- L knee prosthesis infection : s/p I&D, removal of prosthesis and Abx spaced on 11/17. 2- S/p L knee hematoma , s/p evacuation of hematoma and revision of spaced on 11/27. 3- s/p acute blood loss anemia 4- chronic L popletial DVT. s/p IVC filter 07/04 5- h/o seizure DO plan : - Dc dilaudid [employer]GER. - start IV morphine and percocet PRN - cont zosyn - cont to hold AC due to L knee hematoma and persistent bloody drainage - has IVCF - no Weight barinf . can move to chair - Monitor HB - cont home dilantin - cont home finasteride and flomax - SCD to R leg - Wound care and dressing changes on L per surgery - cont toprol
[2019-12-02] MEDS: PHENYTOIN NA EXTENDED 100 MG CAPSULE (FP) PO SCH (21:44)
[2019-12-03] MEDS ORDERED: PIPERACILLIN/TAZOBACTAM 3.375 GM VIAL IVPB ONE ×3 (03:25→17:40)
[2019-12-03] MEDS ORDERED: DEXTROSE 5%-WATER - 50 ML IVPB ONE ×3 (03:25→17:40)
[2019-12-03] MEDS: PIPERACILLIN/TAZOB 3.375 GM 3.375 GM in DEXTROSE 5%-WATER - 50 ML IVPB SCH ×3 (03:30→17:41)
[2019-12-03] MEDS: oxyCODONE HCL 5 MG TABLET PO PRN ×2 (06:55→14:38)
[2019-12-03] MEDS: ACETAMINOPHEN 325 MG TABLET (FP) PO PRN ×2 (06:55→14:38)
[2019-12-03 08:02] LABS: HEMATOCRIT 26.8 % (35.4-49); HEMOGLOBIN 8.9 GM/dL (11.7-16.9); MCH 31.2 pg (25.7-33.7); MCHC 33.1 g/dl (32.0-35.9); MEAN CELL VOLUME 94.3 fl (80-96); MEAN PLT VOLUME 7.1 fl (7.5-11.1); PLATELET COUNT 267 K/MM3 (134-434); RBC 2.85 M/mm3 (4.00-5.60); RDW 17.5 % (11.9-15.9); WHITE BLOOD COUNT 7.3 K/mm3 (4.0-10.0)
[2019-12-03] MEDS: FINASTERIDE 5 MG TABLET (FP) PO SCH (09:43)
[2019-12-03] MEDS: TAMSULOSIN HCL 0.4 MG CAP PO SCH (09:43)
[2019-12-03] MEDS: HYDROCHLOROTHIAZIDE 12.5 MG CAPSULE (FP) PO SCH (09:43)
[2019-12-03] MEDS: PANTOPRAZOLE 40 MG TABLET PO SCH (09:43)
[2019-12-03] MEDS: LACTOBACILLUS ACIDOPHILUS 1 TABLET PO SCH (09:43)
[2019-12-03] MEDS: SENNOSIDES/DOCUSATE COMBO (SENNA PLUS) TABLET (UD) PO SCH ×2 (09:44→21:37)
[2019-12-03] MEDS: BUDESONIDE/FORMETEROL FUMARATE 80/4.5 mcg INHALER IH SCH ×2 (09:44→21:38)
--- NOTE | 2019-12-03 13:46 | PN ---
Progress Note, Physician History of Present Illness: stable no new issues - Current Medication List Current Medications: Active Medications Acetaminophen (Tylenol -) 325 mg PO Q4H PRN PRN Reason: PAIN 1-3 Last Admin: 12/03/19 06:55 Dose: 325 mg Documented by: Al Hydroxide/Mg Hydroxide (Mylanta Oral Suspension -) 30 ml PO Q4H PRN PRN Reason: DYSPEPSIA Budesonide/Formoterol Fumarate (Symbicort 80/4.5mcg -) 2 puff IH BID [facility] Last Admin: 12/03/19 09:44 Dose: 2 puff Documented by: Finasteride (Proscar -) 5 mg PO DAILY [facility] Last Admin: 12/03/19 09:43 Dose: 5 mg Documented by: Hydrochlorothiazide (Hctz -) 12.5 mg PO DAILY [facility] Last Admin: 12/03/19 09:43 Dose: 12.5 mg Documented by: Piperacillin Sod/Tazobactam (Sod 3.375 gm/ Dextrose) 50 mls @ 100 mls/hr IVPB Q8H-IV [facility]; Protocol Last Admin: 12/03/19 09:44 Dose: 100 mls/hr Documented by: Lactobacillus Acidophilus (Bacid -) 1 tab PO DAILY [facility] Last Admin: 12/03/19 09:43 Dose: 1 tab Documented by: Magnesium Hydroxide (Milk Of Magnesia -) 30 ml PO PRN PRN PRN Reason: CONSTIPATION Metoprolol Succinate (Toprol Xl -) 50 mg PO DAILY [facility] Last Admin: 12/03/19 09:43 Dose: 50 mg Documented by: Morphine Sulfate (Morphine Sulfate) 2 mg IVPUSH Q4H PRN PRN Reason: PAIN LEVEL 4-6 Last Admin: 12/03/19 09:41 Dose: 2 mg Documented by: Oxycodone HCl (Roxicodone -) 5 mg PO Q4H PRN PRN Reason: PAIN 1-3 Last Admin: 12/03/19 06:55 Dose: 5 mg Documented by: Pantoprazole Sodium (Protonix -) 40 mg PO DAILY [facility] Last Admin: 12/03/19 09:43 Dose: 40 mg Documented by: Phenytoin Sodium (Dilantin -) 500 mg PO HS [facility] Last Admin: 12/02/19 21:44 Dose: 500 mg Documented by: Senna/Docusate Sodium (Pericolace -) 2 tablet PO BID [facility] Last Admin: 12/03/19 09:44 Dose: Not Given Documented by: Tamsulosin HCl (Flomax -) 0.4 mg PO DAILY@0830 [facility] Last Admin: 12/03/19 09:43 Dose: 0.4 mg Documented by: - Objective Vital Signs: Vital Signs Temperature 97 F L 12/03/19 10:00 Pulse Rate 106 H 12/03/19 10:00 Respiratory Rate 20 12/03/19 10:00 Blood Pressure 140/79 12/03/19 10:00 O2 Sat by Pulse Oximetry (%) 97 12/03/19 09:00 Constitutional: Yes: No Distress, Calm Cardiovascular: Yes: S1, S2 Respiratory: Yes: Regular, CTA Bilaterally Gastrointestinal: Yes: Normal Bowel Sounds, Soft Musculoskeletal: Yes: WNL Extremities: Yes: Other Wound/Incision: Yes: Dressing Dry and Intact, Other (hemovac in place) Neurological: Yes: Alert, Oriented Psychiatric: Yes: Alert, Oriented Labs: CBC, BMP 12/03/19 07:25 12/02/19 08:30 INR, PTT INR 1.28 (0.83-1.09) H 11/30/19 05:25 Assessment/Plan Problem List - Problems (1) Acute blood loss anemia Code(s): D62 - ACUTE POSTHEMORRHAGIC ANEMIA (2) Infection of prosthetic left knee joint Code(s): T84.54XA - INFECT/INFLM REACTION DUE TO INTERNAL LEFT KNEE PROSTH, INIT (3) Left leg DVT Code(s): I82.402 - ACUTE EMBOLISM AND THOMBOS UNSP DEEP VEINS OF L LOW EXTREM (4) Seizure disorder Code(s): G40.909 - EPILEPSY, UNSP, NOT INTRACTABLE, WITHOUT STATUS EPILEPTICUS (5) Anemia Code(s): D64.9 - ANEMIA, UNSPECIFIED (6) BPH (benign prostatic hyperplasia) Code(s): N40.0 - BENIGN PROSTATIC HYPERPLASIA WITHOUT LOWER URINRY TRACT SYMP (7) Hypercholesteremia Code(s): E78.00 - PURE HYPERCHOLESTEROLEMIA, UNSPECIFIED (8) Osteoarthritis of left knee Code(s): M17.12 - UNILATERAL PRIMARY OSTEOARTHRITIS, LEFT KNEE Assessment/Plan Lt knee prosthesis infection s/p hardware removal s/p washout/I+D/spacer POD #1 LLE DVT -- continue Zosyn complete the course
--- NOTE | 2019-12-03 13:56 | PN ---
Progress Note, Physician History of Present Illness: says he is not able to hold his stools having loose bm - Current Medication List Current Medications: Active Medications Acetaminophen (Tylenol -) 325 mg PO Q4H PRN PRN Reason: PAIN 1-3 Last Admin: 12/03/19 06:55 Dose: 325 mg Documented by: Al Hydroxide/Mg Hydroxide (Mylanta Oral Suspension -) 30 ml PO Q4H PRN PRN Reason: DYSPEPSIA Budesonide/Formoterol Fumarate (Symbicort 80/4.5mcg -) 2 puff IH BID [facility] Last Admin: 12/03/19 09:44 Dose: 2 puff Documented by: Finasteride (Proscar -) 5 mg PO DAILY [facility] Last Admin: 12/03/19 09:43 Dose: 5 mg Documented by: Hydrochlorothiazide (Hctz -) 12.5 mg PO DAILY [facility] Last Admin: 12/03/19 09:43 Dose: 12.5 mg Documented by: Piperacillin Sod/Tazobactam (Sod 3.375 gm/ Dextrose) 50 mls @ 100 mls/hr IVPB Q8H-IV [facility]; Protocol Last Admin: 12/03/19 09:44 Dose: 100 mls/hr Documented by: Lactobacillus Acidophilus (Bacid -) 1 tab PO DAILY [facility] Last Admin: 12/03/19 09:43 Dose: 1 tab Documented by: Magnesium Hydroxide (Milk Of Magnesia -) 30 ml PO PRN PRN PRN Reason: CONSTIPATION Metoprolol Succinate (Toprol Xl -) 50 mg PO DAILY [facility] Last Admin: 12/03/19 09:43 Dose: 50 mg Documented by: Morphine Sulfate (Morphine Sulfate) 2 mg IVPUSH Q4H PRN PRN Reason: PAIN LEVEL 4-6 Last Admin: 12/03/19 09:41 Dose: 2 mg Documented by: Oxycodone HCl (Roxicodone -) 5 mg PO Q4H PRN PRN Reason: PAIN 1-3 Last Admin: 12/03/19 06:55 Dose: 5 mg Documented by: Pantoprazole Sodium (Protonix -) 40 mg PO DAILY [facility] Last Admin: 12/03/19 09:43 Dose: 40 mg Documented by: Phenytoin Sodium (Dilantin -) 500 mg PO HS [facility] Last Admin: 12/02/19 21:44 Dose: 500 mg Documented by: Senna/Docusate Sodium (Pericolace -) 2 tablet PO BID [facility] Last Admin: 12/03/19 09:44 Dose: Not Given Documented by: Tamsulosin HCl (Flomax -) 0.4 mg PO DAILY@0830 [facility] Last Admin: 12/03/19 09:43 Dose: 0.4 mg Documented by: - Objective Vital Signs: Vital Signs Temperature 97 F L 12/03/19 10:00 Pulse Rate 106 H 12/03/19 10:00 Respiratory Rate 20 12/03/19 10:00 Blood Pressure 140/79 12/03/19 10:00 O2 Sat by Pulse Oximetry (%) 97 12/03/19 09:00 Constitutional: Yes: Calm, Mild Distress, Obese Eyes: Yes: Conjunctiva Clear HENT: Yes: Atraumatic Cardiovascular: Yes: S1, S2 Respiratory: Yes: Other Gastrointestinal: Yes: Other (dirrhoea) Musculoskeletal: Yes: WNL Extremities: Yes: WNL Neurological: Yes: Alert, Oriented Labs: CBC, BMP 12/03/19 07:25 12/02/19 08:30 INR, PTT INR 1.28 (0.83-1.09) H 11/30/19 05:25 Assessment/Plan Problem List - Problems (1) Acute blood loss anemia Code(s): D62 - ACUTE POSTHEMORRHAGIC ANEMIA (2) Infection of prosthetic left knee joint Code(s): T84.54XA - INFECT/INFLM REACTION DUE TO INTERNAL LEFT KNEE PROSTH, INIT (3) Left leg DVT Code(s): I82.402 - ACUTE EMBOLISM AND THOMBOS UNSP DEEP VEINS OF L LOW EXTREM (4) Seizure disorder Code(s): G40.909 - EPILEPSY, UNSP, NOT INTRACTABLE, WITHOUT STATUS EPILEPTICUS (5) Anemia Code(s): D64.9 - ANEMIA, UNSPECIFIED (6) BPH (benign prostatic hyperplasia) Code(s): N40.0 - BENIGN PROSTATIC HYPERPLASIA WITHOUT LOWER URINRY TRACT SYMP (7) Hypercholesteremia Code(s): E78.00 - PURE HYPERCHOLESTEROLEMIA, UNSPECIFIED (8) Osteoarthritis of left knee Code(s): M17.12 - UNILATERAL PRIMARY OSTEOARTHRITIS, LEFT KNEE Assessment/Plan Lt knee prosthesis infection s/p hardware removal s/p washout/I+D/spacer POD #1 LLE DVT -- continue Zosyn complete the course will send stool for cdiff 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
--- NOTE | 2019-12-03 15:23 | PN ---
Physical Exam: SUBJECTIVE: Patient seen and examined. Pain rated 4/10 today. NO acute events overnight. OBJECTIVE: Vital Signs Period Temp Pulse Resp BP Sys/Gee Pulse Ox Last 24 Hr 97 F-99.4 F 97-131 20-20 122-142/63-85 93-97 GENERAL: AAOx3, not in acute distress. HEENT: NCAT, EOMI, moist mucus membranes. CARDIAC: regular rate and rhythm. S1, S2 present. No murmurs. RESPIRATORY: CTA b/l, no wheezes. ABDOMEN: Obese, non-distended, non-tender to palpation. Normoactive bowel sounds. EXTREMITIES: LLE bandaged and immobilized. 3 drains visible next to leg. Draining sanguineous fluid. SKIN: Stage 2 sacral ulcer observed. NEUROLOGICAL: Sensation and movement intact. Moves toes spontaneously. CBC, BMP 12/03/19 07:25 12/02/19 08:30 Active Medications Acetaminophen (Tylenol -) 325 mg PO Q4H PRN PRN Reason: PAIN 1-3 Last Admin: 12/03/19 14:38 Dose: 325 mg Documented by: Al Hydroxide/Mg Hydroxide (Mylanta Oral Suspension -) 30 ml PO Q4H PRN PRN Reason: DYSPEPSIA Budesonide/Formoterol Fumarate (Symbicort 80/4.5mcg -) 2 puff IH BID [facility] Last Admin: 12/03/19 09:44 Dose: 2 puff Documented by: Finasteride (Proscar -) 5 mg PO DAILY [facility] Last Admin: 12/03/19 09:43 Dose: 5 mg Documented by: Hydrochlorothiazide (Hctz -) 12.5 mg PO DAILY [facility] Last Admin: 12/03/19 09:43 Dose: 12.5 mg Documented by: Piperacillin Sod/Tazobactam (Sod 3.375 gm/ Dextrose) 50 mls @ 100 mls/hr IVPB Q8H-IV [facility]; Protocol Last Admin: 12/03/19 17:41 Dose: 100 mls/hr Documented by: Lactobacillus Acidophilus (Bacid -) 1 tab PO DAILY [facility] Last Admin: 12/03/19 09:43 Dose: 1 tab Documented by: Magnesium Hydroxide (Milk Of Magnesia -) 30 ml PO PRN PRN PRN Reason: CONSTIPATION Metoprolol Succinate (Toprol Xl -) 50 mg PO DAILY [facility] Last Admin: 12/03/19 09:43 Dose: 50 mg Documented by: Morphine Sulfate (Morphine Sulfate) 2 mg IVPUSH Q4H PRN PRN Reason: PAIN LEVEL 4-6 Last Admin: 12/03/19 09:41 Dose: 2 mg Documented by: Oxycodone HCl (Roxicodone -) 5 mg PO Q4H PRN PRN Reason: PAIN 1-3 Last Admin: 12/03/19 14:38 Dose: 5 mg Documented by: Pantoprazole Sodium (Protonix -) 40 mg PO DAILY [facility] Last Admin: 12/03/19 09:43 Dose: 40 mg Documented by: Phenytoin Sodium (Dilantin -) 500 mg PO HS [facility] Last Admin: 12/02/19 21:44 Dose: 500 mg Documented by: Senna/Docusate Sodium (Pericolace -) 2 tablet PO BID [facility] Last Admin: 12/03/19 09:44 Dose: Not Given Documented by: Tamsulosin HCl (Flomax -) 0.4 mg PO DAILY@0830 [facility] Last Admin: 12/03/19 09:43 Dose: 0.4 mg Documented by: ASSESSMENT/PLAN: 68 year old M PMH L TKR 2019, DVT 2017 (on coumadin s/p IVC filter), HTN, hypercholesterolemia, GERD, seizure disorder, BPH, OA who presented with worsening L knee pain and swelling with drainage for several weeks. Pt admitted for infected L knee. He is s/p I&D of L knee, L TKA hardware removal, tibial tubercle osteotomy, and placement of L knee abx spacer on 11/18/2019. S/p I&D and exchange of abx spacer on 11/27. L infected periprosthetic knee - Monitor drain output, I/O's - L knee wound culture negative - ID consulted. - will c/w Zosyn, started 11/20/2019. Today is day 14. - will have PICC line placement at some point - Ortho consulted. -To remove drain when appropriate. Can be OOB to chair during meals, strict non-weight bearing of LLE. C/w PT. - c/w pain control w/ oxycodone 5mg q6H, acetaminophen 325 PRN; IV morphine 2mg q4H PRN -To d/c morphine tomorrow - will c/w bowel regimen - c/w symbicort - c/w probiotics - c/w tylenol PRN fever/pain Anemia, improved - f/u CBC -d/c AC as per Dr. Evans (vascular) Seizure disorder -c/w dilantin 500 qHS H/o DVT - IVC filter on 06/2018. No need to resume AC. HTN, Hypercholesterolemia - c/w metoprolol succinate 50 qD, HCTZ 12.5mg qD BPH -PT voided successfully. No residual. -c/w home tamsulosin, finasteride FEN - No standing fluids - Monitor and replete electrolytes - Regular diet Ppx - DVT: SCD R leg, IVC filter - GI: Protonix Dispo: Continue to monitor. Visit type - Emergency Visit Emergency Visit: Yes ED Registration Date: 11/17/19 Care time: The patient presented to the Emergency Department on the above date and was hospitalized for further evaluation of their emergent condition. - New Patient This patient is new to me today: No - Critical Care Critical Care patient: No - Medication Review Med list reviewed for High Risk Meds patients 65 and older: Yes ATTENDING PHYSICIAN STATEMENT I saw and evaluated the patient. I reviewed the resident's note and discussed the case with the resident. I agree with the resident's findings and plan as documented. SUBJECTIVE: OBJECTIVE: ASSESSMENT AND PLAN:
--- NOTE | 2019-12-03 16:37 | PN ---
Progress Note (short form) - Note Progress Note: SURGERY s/p Hematoma evacuation of left knee s/p 1. I&D left knee. 2. Removal L TKA hardware. 3. Placement left knee antibiotic spacer. 4. Tibial tubercle osteotomy Patient seen and examined on rounds. He says his pain has greatly improved since the washout over the weekens and is now being controlled. His H&H has remained stable since all his AC has been stopped. He is tolerating his diet and he denies any dizziness, blurred vision, CP, SOB, N/V, fever or chills. Pt getting OOB with PT Vital Signs Temp 98.6 F 12/03/19 14:00 Pulse 97 H 12/03/19 14:00 Resp 20 12/03/19 14:00 BP 122/63 12/03/19 14:00 Pulse Ox 97 12/03/19 09:00 Intake & Output 12/02/19 12/03/19 12/03/19 23:59 11:59 23:59 Intake Total 240 200 50 Output Total 400 765 600 Balance -160 565 -550 Intake: IVPB 100 50 Oral 240 100 Output: Drainage 165 left knee #1 15 left knee #2 100 left knee #3 50 Urine 400 600 600 Void 400 600 600 Other: Voiding Method Urinal Urinal # Unmeasured Voids Void 1 Bowel Movement Yes: small Yes # Bowel Movements 1 1 Total drain output 165cc @ 24 hours PE: A&Ox3, NAD Unlabored resp on RA Left LE: dressing c/d/i with dipak wrap Diffuse edema throughout, Three hemavac drains in good position and draining. Foot and toes warm and well perfused with +2 dp pulse and PT pulses patient able to move toes without limitation. Right LE compartments soft, supple and non-tender with +2 DP pulses Problem List - Problems (1) Infection of prosthetic left knee joint Assessment/Plan: A/P: 68 yo male POD #5 hematoma evacuation and s/p I&D left knee. Removal L TKA hardware. Placement left knee antibiotic spacer. Tibial tubercle osteotomy. Prosthetic joint infection with acute blood loss anemia, s/p multiple transfusions, now with H&H stable. IVF filter placement confirmed. Will consider remove 1 or more drains tomorrow morning. -Continue to hold all AC- IVC filter in place - Trend daily labs, include coags -Elevate Left LE while in bed -Pain control [employer] -DVT PPx: -hematology reviewed and appreciated- chronic L popliteal vein DVT with no acute intervention-follow up with vascular as outpatient. -Mechanical: BARB's, SCD's, IVC Filter -Incentive spirometry q15 min. -Pack knee with Ice- keep dressings dry -PT/OT/Rehab, OOB. and OOB to chair for meals -Strict NWB LLE. -IV Abx per ID - Patient will need PICC line upon d/c -f/u drains output. -Care per medical hospitalist
--- NOTE | 2019-12-03 17:52 | PN ---
Teaching Attending Note Name of Resident: Dilcia Gonzalez ATTENDING PHYSICIAN STATEMENT I saw and evaluated the patient. I reviewed the resident's note and discussed the case with the resident. I agree with the resident's findings and plan as documented. SUBJECTIVE:seen at 8 am No fever or chills. no LUU , has abd discomfort . could not urinate in am . OBJECTIVE: NAD. awake alert, cooperative CV: RRR Lungs: CATB Abd: soft, TTP in suprapubic area. bladder is percussed just below the umbilicus LLE in a dressing and a brace from upper thigh to foot. can move toes. no edema on R LE e ASSESSMENT AND PLAN: Unfortunate 68 y/o man with Left TKR 2018, DVT 2016 (on coumadin s/p IVC filter), HTN, HLD, GERD, seizure disorder, BPH, OA who presented with pain in L knee and was found to have prosthetic infection , now s/p I&D, removal of prosthesis and Abx spaced on 11/17, then evacuation of hematoma and revision of spaced on 11/27. 1- L knee prosthesis infection : s/p I&D, removal of prosthesis and Abx spaced on 11/17. 2- S/p L knee hematoma , s/p evacuation of hematoma and revision of spaced on 11/27. 3- S/p acute blood loss anemia 4- chronic L popletial DVT. s/p IVC filter 07/04 5- H/o seizure DO 6- Urinary retention. Plan: - bladder scan showed large residual . straight cath done. then patient voided successfully - cont pain meds .c an dc morphine tomorrow - cont zosyn - d/w surgical team, Kym. Dr. Nathan hernandes is pending. ? need for venogram to evaluate IVC filter - cont to hold AC due to L knee hematoma and persistent bloody drainage - no Weight baring. did not do well with PT - cont home dilantin - cont home finasteride and flomax - SCD to R leg - Wound care and dressing changes on L per surgery - cont toprol
--- NOTE | 2019-12-03 18:55 | PN ---
Progress Note (short form) - Note Progress Note: Vascular Surgery 68 year old male with extensive orthopedic surgery to left knee. Pt had a left lower extremity dvt in past and had a IVC filter placed 06/30/18. Pt now off AC due to bleeding after the knee surgery DVT is now chronic. Pt is well protected with IVC filter. No need for AC at this point. Cont present care Segundo Evans DO
[2019-12-03] MEDS: PHENYTOIN NA EXTENDED 100 MG CAPSULE (FP) PO SCH (21:43)
[2019-12-04] MEDS ORDERED: PIPERACILLIN/TAZOBACTAM 3.375 GM VIAL IVPB ONE ×3 (01:32→17:02)
[2019-12-04] MEDS ORDERED: DEXTROSE 5%-WATER - 50 ML IVPB ONE ×3 (01:32→17:02)
[2019-12-04] MEDS: PIPERACILLIN/TAZOB 3.375 GM 3.375 GM in DEXTROSE 5%-WATER - 50 ML IVPB SCH ×3 (01:36→17:11)
[2019-12-04] MEDS ORDERED: MAGNESIUM HYDROX 2400MG/30ML ORAL SUSPENSION 30 ML CUP PO PRN (04:09)
[2019-12-04] MEDS ORDERED: PT OWN MED DRAWER 7, Y5N ONE ×2 (09:28→21:25)
[2019-12-04] MEDS: TAMSULOSIN HCL 0.4 MG CAP PO SCH (09:36)
[2019-12-04 09:37] LABS: HEMATOCRIT 29.7 % (35.4-49); HEMOGLOBIN 9.6 GM/dL (11.7-16.9); MCHC 32.5 g/dl (32.0-35.9); MEAN CELL VOLUME 95.3 fl (80-96); PLATELET COUNT 283 K/MM3 (134-434); RBC 3.11 M/mm3 (4.00-5.60); RDW 18.8 % (11.9-15.9); WHITE BLOOD COUNT 7.6 K/mm3 (4.0-10.0)
[2019-12-04] MEDS: HYDROCHLOROTHIAZIDE 12.5 MG CAPSULE (FP) PO SCH (09:37)
[2019-12-04] MEDS: LACTOBACILLUS ACIDOPHILUS 1 TABLET PO SCH (09:37)
[2019-12-04] MEDS: PANTOPRAZOLE 40 MG TABLET PO SCH (09:38)
[2019-12-04] MEDS: FINASTERIDE 5 MG TABLET (FP) PO SCH (09:38)
[2019-12-04] MEDS: SENNOSIDES/DOCUSATE COMBO (SENNA PLUS) TABLET (UD) PO SCH ×2 (09:38→22:03)
[2019-12-04] MEDS: BUDESONIDE/FORMETEROL FUMARATE 80/4.5 mcg INHALER IH SCH ×2 (09:39→22:03)
--- NOTE | 2019-12-04 11:11 | PN ---
Progress Note, Physician History of Present Illness: stable no new issues - Current Medication List Current Medications: Active Medications Acetaminophen (Tylenol -) 325 mg PO Q4H PRN PRN Reason: PAIN 1-3 Last Admin: 12/03/19 14:38 Dose: 325 mg Documented by: Al Hydroxide/Mg Hydroxide (Mylanta Oral Suspension -) 30 ml PO Q4H PRN PRN Reason: DYSPEPSIA Budesonide/Formoterol Fumarate (Symbicort 80/4.5mcg -) 2 puff IH BID [facility] Last Admin: 12/04/19 09:39 Dose: 2 puff Documented by: Finasteride (Proscar -) 5 mg PO DAILY [facility] Last Admin: 12/04/19 09:38 Dose: 5 mg Documented by: Hydrochlorothiazide (Hctz -) 12.5 mg PO DAILY [facility] Last Admin: 12/04/19 09:37 Dose: 12.5 mg Documented by: Piperacillin Sod/Tazobactam (Sod 3.375 gm/ Dextrose) 50 mls @ 100 mls/hr IVPB Q8H-IV [facility]; Protocol Last Admin: 12/04/19 09:38 Dose: 100 mls/hr Documented by: Lactobacillus Acidophilus (Bacid -) 1 tab PO DAILY [facility] Last Admin: 12/04/19 09:37 Dose: 1 tab Documented by: Magnesium Hydroxide (Milk Of Magnesia -) 30 ml PO PRN PRN PRN Reason: CONSTIPATION Metoprolol Succinate (Toprol Xl -) 50 mg PO DAILY [facility] Last Admin: 12/04/19 09:38 Dose: 50 mg Documented by: Oxycodone HCl (Roxicodone -) 5 mg PO Q4H PRN PRN Reason: PAIN 1-3 Last Admin: 12/03/19 14:38 Dose: 5 mg Documented by: Pantoprazole Sodium (Protonix -) 40 mg PO DAILY [facility] Last Admin: 12/04/19 09:38 Dose: 40 mg Documented by: Phenytoin Sodium (Dilantin -) 500 mg PO [facility] Senna/Docusate Sodium (Pericolace -) 2 tablet PO BID [facility] Last Admin: 12/04/19 09:38 Dose: 2 tablet Documented by: Tamsulosin HCl (Flomax -) 0.4 mg PO DAILY@0830 [facility] Last Admin: 12/04/19 09:36 Dose: 0.4 mg Documented by: - Objective Vital Signs: Vital Signs Temperature 99.7 F H 12/04/19 06:00 Pulse Rate 97 H 12/04/19 06:00 Respiratory Rate 12/04/19 06:00 Blood Pressure 143/76 12/04/19 06:00 O2 Sat by Pulse Oximetry (%) 95 12/03/19 21:00 Constitutional: Yes: No Distress, Calm Cardiovascular: Yes: S1, S2 Respiratory: Yes: Regular, CTA Bilaterally Gastrointestinal: Yes: Normal Bowel Sounds, Soft Musculoskeletal: Yes: WNL Extremities: Yes: Other Wound/Incision: Yes: Other (hemovac in place) Labs: CBC, BMP 12/04/19 09:15 12/02/19 08:30 INR, PTT INR 1.28 (0.83-1.09) H 11/30/19 05:25 Assessment/Plan Problem List - Problems (1) Acute blood loss anemia Code(s): D62 - ACUTE POSTHEMORRHAGIC ANEMIA (2) Infection of prosthetic left knee joint Code(s): T84.54XA - INFECT/INFLM REACTION DUE TO INTERNAL LEFT KNEE PROSTH, INIT (3) Left leg DVT Code(s): I82.402 - ACUTE EMBOLISM AND THOMBOS UNSP DEEP VEINS OF L LOW EXTREM (4) Seizure disorder Code(s): G40.909 - EPILEPSY, UNSP, NOT INTRACTABLE, WITHOUT STATUS EPILEPTICUS (5) Anemia Code(s): D64.9 - ANEMIA, UNSPECIFIED (6) BPH (benign prostatic hyperplasia) Code(s): N40.0 - BENIGN PROSTATIC HYPERPLASIA WITHOUT LOWER URINRY TRACT SYMP (7) Hypercholesteremia Code(s): E78.00 - PURE HYPERCHOLESTEROLEMIA, UNSPECIFIED (8) Osteoarthritis of left knee Code(s): M17.12 - UNILATERAL PRIMARY OSTEOARTHRITIS, LEFT KNEE Assessment/Plan Lt knee prosthesis infection s/p hardware removal s/p washout/I+D/spacer POD #1 LLE DVT -- continue Zosyn complete the course
[2019-12-04] MEDS: MAG HYDROX/AL HYDROX/SIMETH 30 ML UNIT-DOSE CUP PO PRN (16:57)
--- NOTE | 2019-12-04 18:10 | PN ---
Progress Note (short form) - Note Progress Note: Looks really well ie Facies An important clinical sign often forgotten Sitting eating a hearty meal Apyrexial General parameters all good Hb 9.6 LLE Immobilizer in tact Bandage dry No NVD Still some H VAC drainage Not Will review tomorrow re D/C drains
--- NOTE | 2019-12-04 18:38 | PN ---
Physical Exam: SUBJECTIVE: Patient seen and examined. Rated pain 4/10. OBJECTIVE: Vital Signs Period Temp Pulse Resp BP Sys/Gee Pulse Ox Last 24 Hr 99.4 F-99.7 F 94-102 20-20 129-163/76-96 93-95 GENERAL: Alert, awake, in mild distress due to pain HEENT: NCAT, EOMI, moist mucus membranes. CARDIAC: regular rate and rhythm. S1, S2 present. No murmurs. RESPIRATORY: CTA b/l, no wheezes. ABDOMEN: Obese, non-distended, non-tender to palpation. Normoactive bowel sounds. EXTREMITIES: LLE bandaged and immobilized. 3 drains visible next to leg. Draining sanguineous fluid. SKIN: Stage 2 sacral ulcer observed. NEUROLOGICAL: Sensation and movement intact. Moves toes spontaneously. Laboratory Results - last 24 hr 12/04/19 09:15 WBC 7.6 RBC 3.11 L Hgb 9.6 L Hct 29.7 L MCV 95.3 MCH 31.0 MCHC 32.5 RDW 18.8 H Plt Count 283 MPV 7.0 L Active Medications Active Medications Acetaminophen (Tylenol -) 325 mg PO Q4H PRN PRN Reason: PAIN 1-3 Last Admin: 12/05/19 04:03 Dose: 325 mg Documented by: Al Hydroxide/Mg Hydroxide (Mylanta Oral Suspension -) 30 ml PO Q4H PRN PRN Reason: DYSPEPSIA Last Admin: 12/05/19 14:30 Dose: 30 ml Documented by: Budesonide/Formoterol Fumarate (Symbicort 80/4.5mcg -) 2 puff IH BID [facility] Last Admin: 12/05/19 09:50 Dose: 2 puff Documented by: Finasteride (Proscar -) 5 mg PO DAILY [facility] Last Admin: 12/05/19 09:49 Dose: 5 mg Documented by: Hydrochlorothiazide (Hctz -) 12.5 mg PO DAILY [facility] Last Admin: 12/05/19 09:49 Dose: 12.5 mg Documented by: Piperacillin Sod/Tazobactam (Sod 3.375 gm/ Dextrose) 50 mls @ 100 mls/hr IVPB Q8H-IV [facility]; Protocol Last Admin: 12/05/19 17:32 Dose: 100 mls/hr Documented by: Lactobacillus Acidophilus (Bacid -) 1 tab PO DAILY [facility] Last Admin: 12/05/19 09:49 Dose: 1 tab Documented by: Magnesium Hydroxide (Milk Of Magnesia -) 30 ml PO PRN PRN PRN Reason: CONSTIPATION Last Admin: 12/04/19 23:04 Dose: 30 ml Documented by: Metoprolol Succinate (Toprol Xl -) 50 mg PO DAILY [facility] Last Admin: 12/05/19 09:49 Dose: 50 mg Documented by: Oxycodone HCl (Roxicodone -) 5 mg PO Q4H PRN PRN Reason: PAIN 1-3 Last Admin: 12/05/19 04:03 Dose: 5 mg Documented by: Pantoprazole Sodium (Protonix -) 40 mg PO DAILY [facility] Last Admin: 12/05/19 09:50 Dose: 40 mg Documented by: Phenytoin Sodium (Dilantin -) 500 mg PO HS [facility] Last Admin: 12/04/19 22:03 Dose: 500 mg Documented by: Senna/Docusate Sodium (Pericolace -) 2 tablet PO BID PRN PRN Reason: CONSTIPATION Tamsulosin HCl (Flomax -) 0.4 mg PO DAILY@0830 [facility] Last Admin: 12/05/19 09:49 Dose: 0.4 mg Documented by: ASSESSMENT/PLAN: 68 year old M PMH L TKR 2019, DVT 2017 (on coumadin s/p IVC filter), HTN, hypercholesterolemia, GERD, seizure disorder, BPH, OA who presented with worsening L knee pain and swelling with drainage for several weeks. Pt admitted for infected L knee. He is s/p I&D of L knee, L TKA hardware removal, tibial tubercle osteotomy, and placement of L knee abx spacer on 11/18/2019. S/p I&D and exchange of abx spacer on 11/27. L infected periprosthetic knee - Monitor drain output, I/O's - L knee wound culture negative - ID consulted. - will c/w Zosyn, started 11/20/2019. Today is day 15. - will have PICC line placement at some point - Ortho consulted. -To remove drain when appropriate. Can be OOB to chair during meals, strict non-weight bearing of LLE. C/w PT. - c/w pain control w/ oxycodone 5mg q6H, acetaminophen 325 PRN - will c/w bowel regimen - c/w symbicort - c/w probiotics - c/w tylenol PRN fever/pain Anemia, improved - f/u CBC -d/c AC as per Dr. Evans (vascular) Seizure disorder -c/w dilantin 500 qHS H/o DVT - IVC filter on 06/2018. No need to resume AC. HTN, Hypercholesterolemia - c/w metoprolol succinate 50 qD, HCTZ 12.5mg qD BPH -PT voided successfully. No residual. -c/w home tamsulosin, finasteride FEN - No standing fluids - Monitor and replete electrolytes - Regular diet Ppx - DVT: SCD R leg, IVC filter - GI: Protonix Dispo: Continue to monitor. Visit type - Emergency Visit Emergency Visit: Yes ED Registration Date: 11/17/19 Care time: The patient presented to the Emergency Department on the above date and was hospitalized for further evaluation of their emergent condition. - New Patient This patient is new to me today: No - Critical Care Critical Care patient: No - Medication Review Med list reviewed for High Risk Meds patients 65 and older: Yes ATTENDING PHYSICIAN STATEMENT I saw and evaluated the patient. I reviewed the resident's note and discussed the case with the resident. I agree with the resident's findings and plan as documented. SUBJECTIVE: OBJECTIVE: ASSESSMENT AND PLAN:
--- NOTE | 2019-12-04 18:45 | PN ---
Teaching Attending Note Name of Resident: Scarlett Burnette ATTENDING PHYSICIAN STATEMENT I saw and evaluated the patient. I reviewed the resident's note and discussed the case with the resident. I agree with the resident's findings and plan as documented. SUBJECTIVE: prefers not to be examined as on bed huerta OBJECTIVE: NAD Unfortunate 68 y/o man with Left TKR 2018, DVT 2016 (on coumadin s/p IVC filter), HTN, HLD, GERD, seizure disorder, BPH, OA who presented with pain in L knee and was found to have prosthetic infection , now s/p I&D, removal of prosthesis and Abx spaced on 11/17, then evacuation of hematoma and revision of spaced on 11/27. 1- L knee prosthesis infection : s/p I&D, removal of prosthesis and Abx spaced on 11/17. 2- S/p L knee hematoma , s/p evacuation of hematoma and revision of spaced on 11/27. 3- S/p acute blood loss anemia 4- chronic L popletial DVT. s/p IVC filter 07/04 5- H/o seizure DO 6- Urinary retention. resolved Plan: - dc morphine - cont zosyn - vascular note reviewed. case was d/w Dr. amaya by team. no need for vanogram to evaluate IVCF function - cont to hold AC due to L knee hematoma and persistent bloody drainage and h/o previous hematoma in knee - no Weight baring on L LE - cont home dilantin - cont home finasteride and flomax - SCD to R leg - Wound care and dressing changes on L per surgery - cont toprol ASSESSMENT AND PLAN:
[2019-12-04] MEDS: PHENYTOIN NA EXTENDED 100 MG CAPSULE (FP) PO SCH (22:03)
[2019-12-05] MEDS ORDERED: DEXTROSE 5%-WATER - 50 ML IVPB ONE ×3 (02:42→17:28)
[2019-12-05] MEDS ORDERED: PIPERACILLIN/TAZOBACTAM 3.375 GM VIAL IVPB ONE ×3 (02:42→17:28)
[2019-12-05] MEDS: PIPERACILLIN/TAZOB 3.375 GM 3.375 GM in DEXTROSE 5%-WATER - 50 ML IVPB SCH ×3 (02:45→17:32)
[2019-12-05] MEDS: ACETAMINOPHEN 325 MG TABLET (FP) PO PRN (04:03)
[2019-12-05] MEDS: oxyCODONE HCL 5 MG TABLET PO PRN (04:03)
[2019-12-05 07:46] LABS: HEMATOCRIT 28.3 % (35.4-49); HEMOGLOBIN 9.4 GM/dL (11.7-16.9); MCH 31.7 pg (25.7-33.7); MCHC 33.4 g/dl (32.0-35.9); MEAN CELL VOLUME 94.8 fl (80-96); MEAN PLT VOLUME 7.4 fl (7.5-11.1); PLATELET COUNT 270 K/MM3 (134-434); RBC 2.98 M/mm3 (4.00-5.60); RDW 18.9 % (11.9-15.9); WHITE BLOOD COUNT 6.8 K/mm3 (4.0-10.0)
[2019-12-05] MEDS ORDERED: PT OWN MED DRAWER 7, Y5N ONE ×2 (09:42→21:59)
[2019-12-05] MEDS: SENNOSIDES/DOCUSATE COMBO (SENNA PLUS) TABLET (UD) PO SCH (09:48)
[2019-12-05] MEDS: MAG HYDROX/AL HYDROX/SIMETH 30 ML UNIT-DOSE CUP PO PRN ×2 (09:49→14:30)
[2019-12-05] MEDS: HYDROCHLOROTHIAZIDE 12.5 MG CAPSULE (FP) PO SCH (09:49)
[2019-12-05] MEDS: LACTOBACILLUS ACIDOPHILUS 1 TABLET PO SCH (09:49)
[2019-12-05] MEDS: TAMSULOSIN HCL 0.4 MG CAP PO SCH (09:49)
[2019-12-05] MEDS: FINASTERIDE 5 MG TABLET (FP) PO SCH (09:49)
[2019-12-05] MEDS: PANTOPRAZOLE 40 MG TABLET PO SCH (09:50)
[2019-12-05] MEDS: BUDESONIDE/FORMETEROL FUMARATE 80/4.5 mcg INHALER IH SCH ×2 (09:50→23:06)
--- NOTE | 2019-12-05 10:29 | PN ---
Physical Exam: SUBJECTIVE: Patient seen and examined at bedside. There were no acute events overnight. This AM he states he is generally uncomfortable, otherwise no new concerns. OBJECTIVE: Vital Signs Period Temp Pulse Resp BP Sys/Gee Pulse Ox Last 24 Hr 98.2 F-99.5 F 91-95 18-20 140-146/71-85 95-96 GENERAL: The patient is awake, alert, and fully oriented, in no acute distress. HEAD: Normal with no signs of trauma. EYES: PERRL, extraocular movements intact, sclera anicteric, conjunctiva clear. No ptosis. ENT: Ears normal, nares patent, oropharynx clear without exudates, moist mucous membranes. NECK: Trachea midline, full range of motion, supple. LUNGS: Breath sounds equal, clear to auscultation bilaterally, no wheezes, no crackles, no accessory muscle use. HEART: Regular rate and rhythm, S1, S2 without murmur, rub or gallop. ABDOMEN: Soft, nontender, nondistended, normoactive bowel sounds, no guarding, no rebound, no hepatosplenomegaly, no masses. EXTREMITIES: LLE x3 drains with blood in tubes. 2+ pulses, warm, well-perfused, no edema. NEUROLOGICAL: Cranial nerves II through XII grossly intact. Normal speech, gait not observed. PSYCH: Normal mood, normal affect. SKIN: Warm, dry, normal turgor, no rashes or lesions noted Laboratory Results - last 24 hr 12/05/19 06:55 WBC 6.8 RBC 2.98 L Hgb 9.4 L Hct 28.3 L MCV 94.8 MCH 31.7 MCHC 33.4 RDW 18.9 H Plt Count 270 MPV 7.4 L Active Medications Generic Name Dose Route Start Last Admin Trade Name Freq PRN Reason Stop Dose Admin Acetaminophen 325 mg 12/02/19 13:45 12/05/19 04:03 Tylenol - PO 325 mg Q4H PRN Administration PAIN 1-3 Al Hydroxide/Mg Hydroxide 30 ml 12/04/19 04:09 12/05/19 09:49 Mylanta Oral Suspension - PO 30 ml Q4H PRN Administration DYSPEPSIA Budesonide/Formoterol Fumarate 2 puff 12/04/19 10:00 12/05/19 09:50 Symbicort 80/4.5mcg - IH 2 puff BID [facility] Administration Finasteride 5 mg 12/04/19 10:00 12/05/19 09:49 Proscar - PO 5 mg DAILY [facility] Administration Hydrochlorothiazide 12.5 mg 12/03/19 10:00 12/05/19 09:49 Hctz - PO 12.5 mg DAILY [facility] Administration Piperacillin Sod/Tazobactam 50 mls @ 100 mls/hr 12/04/19 10:00 12/05/19 09:49 Sod 3.375 gm/ Dextrose IVPB 100 mls/hr Q8H-IV [facility] Administration Protocol Lactobacillus Acidophilus 1 tab 12/04/19 10:00 12/05/19 09:49 Bacid - PO 1 tab DAILY [facility] Administration Magnesium Hydroxide 30 ml 12/04/19 04:09 12/04/19 23:04 Milk Of Magnesia - PO 30 ml PRN PRN Administration CONSTIPATION Metoprolol Succinate 50 mg 12/04/19 10:00 12/05/19 09:49 Toprol Xl - PO 50 mg DAILY [facility] Administration Oxycodone HCl 5 mg 12/02/19 18:12 12/05/19 04:03 Roxicodone - PO 5 mg Q4H PRN Administration PAIN 1-3 Pantoprazole Sodium 40 mg 12/04/19 10:00 12/05/19 09:50 Protonix - PO 40 mg DAILY [facility] Administration Phenytoin Sodium 500 mg 12/04/19 22:00 12/04/19 22:03 Dilantin - PO 500 mg HS [facility] Administration Senna/Docusate Sodium 2 tablet 12/04/19 10:00 12/05/19 09:48 Pericolace - PO Not Given BID [facility] Tamsulosin HCl 0.4 mg 12/04/19 08:30 12/05/19 09:49 Flomax - PO 0.4 mg DAILY@0830 [facility] Administration ASSESSMENT/PLAN: 68 y/o male PMH TKR 2019, DVT 2017 (on coumadin s/p IVC filter), HTN, hypercholesterolemia, GERD, seizure disorder, BPH, OA who presented with worsening LEFT knee pain, admitted for infected LEFT knee prosthesis. He is s/p I&D of LEFT knee, LEFT TKA hardware removal, tibial tubercle osteotomy, and placement of LEFT knee abx spacer on 11/18/2019. S/p I&D and exchange of abx spacer on 11/27. # LEFT infected periprosthetic knee - Zosyn day 16 - Oxycodone 5mg q6H, acetaminophen 325 PRN - Surgery, ID consulted. # Bowel regimen - Pt experiencing alternating loose stools/constipation - Make stool softeners PRN # Seizure disorder - Dilantin 500 qHS # H/o DVT - IVC filter on 06/2018 - No need to resume AC. # HTN - Metoprolol succinate 50 mg qd, HCTZ 12.5mg qd # Hypercholesterolemia # BPH - Tamsulosin, finasteride # FEN - PO - Cont. to monitor - Low sodium diet # DVT ppx - IVC filter, SCD on RIGHT leg # Disposition - Med/surg Visit type - Emergency Visit Emergency Visit: No - New Patient This patient is new to me today: Yes Date on this admission: 12/05/19 - Critical Care Critical Care patient: No - Medication Review Med list reviewed for High Risk Meds patients 65 and older: Yes ATTENDING PHYSICIAN STATEMENT I saw and evaluated the patient. I reviewed the resident's note and discussed the case with the resident. I agree with the resident's findings and plan as documented. SUBJECTIVE: OBJECTIVE: ASSESSMENT AND PLAN:
[2019-12-05] MEDS ORDERED: SENNOSIDES/DOCUSATE COMBO (SENNA PLUS) TABLET (UD) PO PRN (11:53)
[2019-12-05 12:12] LABS: ALBUMIN 1.7 g/dl (3.4-5.0); BILIRUBIN,TOTAL 0.5 mg/dL (0.2-1); BLOOD UREA NITROGEN 12.6 mg/dL (7-18); CALCIUM 7.8 mg/dL (8.5-10.1); CREATININE 0.8 mg/dL (0.55-1.3); MAGNESIUM 2.3 mg/dL (1.8-2.4); PHOSPHOROUS 3.3 mg/dL (2.5-4.9); POTASSIUM 4.1 mmol/L (3.5-5.1)
--- NOTE | 2019-12-05 12:20 | PN ---
Teaching Attending Note Name of Resident: Kyrie Lind ATTENDING PHYSICIAN STATEMENT I saw and evaluated the patient. I reviewed the resident's note and discussed the case with the resident. I agree with the resident's findings and plan as documented. SUBJECTIVE: No fever or chills . No diarrhea, no LUU , uncomfortable in bed and has some pain in L knee denies SOB , no SOB OBJECTIVE: NAD, awake, alert CV: RRR Lungs: CTAB Abd: sfot, NT, ND , NL BS Ext : No edema or erythema on RLE, or upper extremities. LLE in in a long dressing and a splint, with 3 ERIN drains ( bloody fluid ) . can move toes and has normal sensation Unfortunate 68 y/o man with Left TKR 2018, DVT 2016 (on coumadin s/p IVC filter), HTN, HLD, GERD, seizure disorder, BPH, OA who presented with pain in L knee and was found to have prosthetic infection , now s/p I&D, removal of prosthesis and Abx spaced on 11/17, then evacuation of hematoma and revision of spaced on 11/27. 1- L knee prosthesis infection : s/p I&D, removal of prosthesis and Abx spaced on 11/17. 2- S/p L knee hematoma , s/p evacuation of hematoma and revision of spaced on 11/27. 3- S/p acute blood loss anemia 4- chronic L popletial DVT. s/p IVC filter 07/04 5- H/o seizure DO 6- Urinary retention. resolved Plan: - cont zosyn - drain management per dr. Langston - cont to hold AC due to L knee hematoma and persistent bloody drainage and h/o previous hematoma in knee - no Weight baring on L LE - cont home dilantin - cont home finasteride and flomax - SCD to R leg - Wound care and dressing changes on L per surgery - cont toprol - no need to check C diff , no diarreha. - make colace PRN .
--- NOTE | 2019-12-05 12:32 | PN ---
Progress Note, Physician History of Present Illness: stable no new issues - Current Medication List Current Medications: Active Medications Acetaminophen (Tylenol -) 325 mg PO Q4H PRN PRN Reason: PAIN 1-3 Last Admin: 12/05/19 04:03 Dose: 325 mg Documented by: Al Hydroxide/Mg Hydroxide (Mylanta Oral Suspension -) 30 ml PO Q4H PRN PRN Reason: DYSPEPSIA Last Admin: 12/05/19 09:49 Dose: 30 ml Documented by: Budesonide/Formoterol Fumarate (Symbicort 80/4.5mcg -) 2 puff IH BID [facility] Last Admin: 12/05/19 09:50 Dose: 2 puff Documented by: Finasteride (Proscar -) 5 mg PO DAILY [facility] Last Admin: 12/05/19 09:49 Dose: 5 mg Documented by: Hydrochlorothiazide (Hctz -) 12.5 mg PO DAILY [facility] Last Admin: 12/05/19 09:49 Dose: 12.5 mg Documented by: Piperacillin Sod/Tazobactam (Sod 3.375 gm/ Dextrose) 50 mls @ 100 mls/hr IVPB Q8H-IV [facility]; Protocol Last Admin: 12/05/19 09:49 Dose: 100 mls/hr Documented by: Lactobacillus Acidophilus (Bacid -) 1 tab PO DAILY [facility] Last Admin: 12/05/19 09:49 Dose: 1 tab Documented by: Magnesium Hydroxide (Milk Of Magnesia -) 30 ml PO PRN PRN PRN Reason: CONSTIPATION Last Admin: 12/04/19 23:04 Dose: 30 ml Documented by: Metoprolol Succinate (Toprol Xl -) 50 mg PO DAILY [facility] Last Admin: 12/05/19 09:49 Dose: 50 mg Documented by: Oxycodone HCl (Roxicodone -) 5 mg PO Q4H PRN PRN Reason: PAIN 1-3 Last Admin: 12/05/19 04:03 Dose: 5 mg Documented by: Pantoprazole Sodium (Protonix -) 40 mg PO DAILY [facility] Last Admin: 12/05/19 09:50 Dose: 40 mg Documented by: Phenytoin Sodium (Dilantin -) 500 mg PO [facility] Last Admin: 12/04/19 22:03 Dose: 500 mg Documented by: Senna/Docusate Sodium (Pericolace -) 2 tablet PO BID PRN PRN Reason: CONSTIPATION Tamsulosin HCl (Flomax -) 0.4 mg PO DAILY@0830 [facility] Last Admin: 12/05/19 09:49 Dose: 0.4 mg Documented by: - Objective Vital Signs: Vital Signs Temperature 98.2 F 12/05/19 06:00 Pulse Rate 91 H 12/05/19 06:00 Respiratory Rate 18 12/05/19 06:00 Blood Pressure 142/85 12/05/19 06:00 O2 Sat by Pulse Oximetry (%) 96 12/05/19 01:43 Constitutional: Yes: No Distress, Calm Cardiovascular: Yes: S1, S2 Respiratory: Yes: Regular, CTA Bilaterally Gastrointestinal: Yes: Normal Bowel Sounds, Soft Musculoskeletal: Yes: WNL Extremities: Yes: Other Neurological: Yes: Alert, Oriented Psychiatric: Yes: Alert, Oriented Labs: CBC, BMP 12/05/19 06:55 12/05/19 06:55 INR, PTT INR 1.28 (0.83-1.09) H 11/30/19 05:25 Assessment/Plan Problem List - Problems (1) Acute blood loss anemia Code(s): D62 - ACUTE POSTHEMORRHAGIC ANEMIA (2) Infection of prosthetic left knee joint Code(s): T84.54XA - INFECT/INFLM REACTION DUE TO INTERNAL LEFT KNEE PROSTH, INIT (3) Left leg DVT Code(s): I82.402 - ACUTE EMBOLISM AND THOMBOS UNSP DEEP VEINS OF L LOW EXTREM (4) Seizure disorder Code(s): G40.909 - EPILEPSY, UNSP, NOT INTRACTABLE, WITHOUT STATUS EPILEPTICUS (5) Anemia Code(s): D64.9 - ANEMIA, UNSPECIFIED (6) BPH (benign prostatic hyperplasia) Code(s): N40.0 - BENIGN PROSTATIC HYPERPLASIA WITHOUT LOWER URINRY TRACT SYMP (7) Hypercholesteremia Code(s): E78.00 - PURE HYPERCHOLESTEROLEMIA, UNSPECIFIED (8) Osteoarthritis of left knee Code(s): M17.12 - UNILATERAL PRIMARY OSTEOARTHRITIS, LEFT KNEE Assessment/Plan Lt knee prosthesis infection s/p hardware removal s/p washout/I+D/spacer POD #1 LLE DVT -- continue Zosyn complete the course
--- NOTE | 2019-12-05 16:32 | PN ---
Progress Note (short form) - Note Progress Note: Feeling well Apyrexial Stable general medical status Hb and WCC normal Bandage dry No neurovascular deficit Drains still greater than 50 mls Drains have not Plan Continue all medical Mx ? drains out tomorrow PT Attempt at sitting in chair Flap feet Dorsi/Plantar flexion throughout the day hold anticoagulation
[2019-12-05] MEDS: PHENYTOIN NA EXTENDED 100 MG CAPSULE (FP) PO SCH (23:06)
[2019-12-06] MEDS: MAG HYDROX/AL HYDROX/SIMETH 30 ML UNIT-DOSE CUP PO PRN ×2 (00:23→09:22)
[2019-12-06] MEDS ORDERED: PIPERACILLIN/TAZOBACTAM 3.375 GM VIAL IVPB ONE ×3 (02:30→17:32)
[2019-12-06] MEDS ORDERED: DEXTROSE 5%-WATER - 50 ML IVPB ONE ×3 (02:31→17:32)
[2019-12-06] MEDS: PIPERACILLIN/TAZOB 3.375 GM 3.375 GM in DEXTROSE 5%-WATER - 50 ML IVPB SCH ×3 (02:34→17:56)
--- NOTE | 2019-12-06 07:43 | PN ---
Progress Note, Physician History of Present Illness: still with dirrhoea looks good hemovac still draining - Current Medication List Current Medications: Active Medications Acetaminophen (Tylenol -) 325 mg PO Q4H PRN PRN Reason: PAIN 1-3 Last Admin: 12/05/19 04:03 Dose: 325 mg Documented by: Al Hydroxide/Mg Hydroxide (Mylanta Oral Suspension -) 30 ml PO Q4H PRN PRN Reason: DYSPEPSIA Last Admin: 12/06/19 00:23 Dose: 30 ml Documented by: Budesonide/Formoterol Fumarate (Symbicort 80/4.5mcg -) 2 puff IH BID [facility] Last Admin: 12/05/19 23:06 Dose: 2 puff Documented by: Finasteride (Proscar -) 5 mg PO DAILY [facility] Last Admin: 12/05/19 09:49 Dose: 5 mg Documented by: Hydrochlorothiazide (Hctz -) 12.5 mg PO DAILY [facility] Last Admin: 12/05/19 09:49 Dose: 12.5 mg Documented by: Piperacillin Sod/Tazobactam (Sod 3.375 gm/ Dextrose) 50 mls @ 100 mls/hr IVPB Q8H-IV [facility]; Protocol Last Admin: 12/06/19 02:34 Dose: 100 mls/hr Documented by: Lactobacillus Acidophilus (Bacid -) 1 tab PO DAILY [facility] Last Admin: 12/05/19 09:49 Dose: 1 tab Documented by: Magnesium Hydroxide (Milk Of Magnesia -) 30 ml PO PRN PRN PRN Reason: CONSTIPATION Last Admin: 12/04/19 23:04 Dose: 30 ml Documented by: Metoprolol Succinate (Toprol Xl -) 50 mg PO DAILY [facility] Last Admin: 12/05/19 09:49 Dose: 50 mg Documented by: Oxycodone HCl (Roxicodone -) 5 mg PO Q4H PRN PRN Reason: PAIN 1-3 Last Admin: 12/05/19 04:03 Dose: 5 mg Documented by: Pantoprazole Sodium (Protonix -) 40 mg PO DAILY [facility] Last Admin: 12/05/19 09:50 Dose: 40 mg Documented by: Phenytoin Sodium (Dilantin -) 500 mg PO [facility] Last Admin: 12/05/19 23:06 Dose: 500 mg Documented by: Senna/Docusate Sodium (Pericolace -) 2 tablet PO BID PRN PRN Reason: CONSTIPATION Tamsulosin HCl (Flomax -) 0.4 mg PO DAILY@0830 [facility] Last Admin: 12/05/19 09:49 Dose: 0.4 mg Documented by: - Objective Vital Signs: Vital Signs Temperature 99 F 12/06/19 06:43 Pulse Rate 99 H 12/06/19 06:43 Respiratory Rate 20 12/06/19 06:43 Blood Pressure 133/78 12/06/19 06:43 O2 Sat by Pulse Oximetry (%) 107 H 12/06/19 06:43 Constitutional: Yes: No Distress, Calm, Obese HENT: Yes: Atraumatic Neck: Yes: Supple, Trachea Midline Cardiovascular: Yes: Regular Rate and Rhythm Respiratory: Yes: Regular Gastrointestinal: Yes: Normal Bowel Sounds, Soft Musculoskeletal: Yes: WNL Extremities: Yes: Other Wound/Incision: Yes: Dressing Dry and Intact, Other (hemovac in place) Neurological: Yes: Alert, Oriented Psychiatric: Yes: Alert, Oriented Labs: CBC, BMP 12/05/19 06:55 12/05/19 06:55 INR, PTT INR 1.28 (0.83-1.09) H 11/30/19 05:25 Assessment/Plan Problem List - Problems (1) Acute blood loss anemia Code(s): D62 - ACUTE POSTHEMORRHAGIC ANEMIA (2) Infection of prosthetic left knee joint Code(s): T84.54XA - INFECT/INFLM REACTION DUE TO INTERNAL LEFT KNEE PROSTH, INIT (3) Left leg DVT Code(s): I82.402 - ACUTE EMBOLISM AND THOMBOS UNSP DEEP VEINS OF L LOW EXTREM (4) Seizure disorder Code(s): G40.909 - EPILEPSY, UNSP, NOT INTRACTABLE, WITHOUT STATUS EPILEPTICUS (5) Anemia Code(s): D64.9 - ANEMIA, UNSPECIFIED (6) BPH (benign prostatic hyperplasia) Code(s): N40.0 - BENIGN PROSTATIC HYPERPLASIA WITHOUT LOWER URINRY TRACT SYMP (7) Hypercholesteremia Code(s): E78.00 - PURE HYPERCHOLESTEROLEMIA, UNSPECIFIED (8) Osteoarthritis of left knee Code(s): M17.12 - UNILATERAL PRIMARY OSTEOARTHRITIS, LEFT KNEE Assessment/Plan Lt knee prosthesis infection s/p hardware removal s/p washout/I+D/spacer POD #1 LLE DVT -- continue Zosyn complete the course
[2019-12-06 08:34] LABS: HEMATOCRIT 30.2 % (35.4-49); MCH 31.1 pg (25.7-33.7); MEAN CELL VOLUME 94.3 fl (80-96); MEAN PLT VOLUME 7.5 fl (7.5-11.1); PLATELET COUNT 299 K/MM3 (134-434); RDW 18.4 % (11.9-15.9); WHITE BLOOD COUNT 7.4 K/mm3 (4.0-10.0)
[2019-12-06 09:07] LABS: ALBUMIN 1.8 g/dl (3.4-5.0); BILIRUBIN,DIRECT 0.4 mg/dL (0.0-0.2); BILIRUBIN,TOTAL 0.5 mg/dL (0.2-1); TOT PROT 6.6 g/dl (6.4-8.2)
[2019-12-06] MEDS ORDERED: PT OWN MED DRAWER 7, Y5N ONE ×2 (09:14→21:10)
[2019-12-06] MEDS: PANTOPRAZOLE 40 MG TABLET PO SCH (09:22)
[2019-12-06] MEDS: HYDROCHLOROTHIAZIDE 12.5 MG CAPSULE (FP) PO SCH (09:22)
[2019-12-06] MEDS: FINASTERIDE 5 MG TABLET (FP) PO SCH (09:22)
[2019-12-06] MEDS: LACTOBACILLUS ACIDOPHILUS 1 TABLET PO SCH (09:22)
[2019-12-06] MEDS: TAMSULOSIN HCL 0.4 MG CAP PO SCH (09:22)
[2019-12-06] MEDS: BUDESONIDE/FORMETEROL FUMARATE 80/4.5 mcg INHALER IH SCH ×2 (09:24→21:13)
--- NOTE | 2019-12-06 10:40 | PN ---
Progress Note (short form) - Note Progress Note: Feeling well Apyrexial Stable general medical status Hb and WCC normal Bandage dry No neurovascular deficit Diarrhoea persists Drains still greater than 120 mls Drains have not Plan Continue all medical Mx Review tomorrow PT Attempt at sitting in chair Flap feet Dorsi/Plantar flexion throughout the day hold anticoagulation
[2019-12-06] MEDS: oxyCODONE HCL 5 MG TABLET PO PRN ×2 (11:00→21:13)
[2019-12-06] MEDS: ACETAMINOPHEN 325 MG TABLET (FP) PO PRN ×2 (11:00→21:14)
--- NOTE | 2019-12-06 14:26 | PN ---
Progress Note (short form) - Note Progress Note: Subjective: no fever or chills. pain in LLE . has no CP or SOB. had very loose BM today No abd pain Objective: Vital Signs: Last Vital Signs Temp Pulse Resp BP Pulse Ox 99 F 99 H 20 133/78 91 L 12/06/19 06:43 12/06/19 06:43 12/06/19 09:00 12/06/19 06:43 12/06/19 09:00 Laboratory Results - last 24 hr 12/06/19 12/06/19 07:15 07:50 WBC 7.4 RBC 3.20 L Hgb 10.0 L Hct 30.2 L MCV 94.3 MCH 31.1 MCHC 33.0 RDW 18.4 H Plt Count 299 MPV 7.5 Total Bilirubin 0.5 Direct Bilirubin 0.4 H AST 55 H ALT 70 H Alkaline Phosphatase 223 H Total Protein 6.6 Albumin 1.8 L Physical Exam: NAD, awake, alert CV: RRR Lungs: CTAB Abd: soft, NT, ND , NL BS Ext : No edema or erythema on RLE, or upper extremities. LLE in in a long dressing and a splint, with 3 ERIN drains ( bloody fluid ) . can move toes and has normal sensation Unfortunate 68 y/o man with Left TKR 2018, DVT 2017 (on coumadin s/p IVC filter), HTN, HLD, GERD, seizure disorder, BPH, OA who presented with pain in L knee and was found to have prosthetic infection , now s/p I&D, removal of prosthesis and Abx spaced on 11/17, then evacuation of hematoma and revision of spaced on 11/27. 1- L knee prosthesis infection : s/p I&D, removal of prosthesis and Abx spaced on 11/17. 2- S/p L knee hematoma , s/p evacuation of hematoma and revision of spaced on 11/27. 3- S/p acute blood loss anemia 4- chronic L popletial DVT. s/p IVC filter 07/04 5- H/o seizure DO 6- Urinary retention. resolved 7- Mild transaminitis : possible due to Abx Plan: - cont zosyn - drain management per dr. Langston - cont to hold AC due to L knee hematoma and persistent bloody drainage and h/o previous hematoma in knee - no Weight baring on L LE - dc mylanta and milk of magnesia - cont home dilantin - cont home finasteride and flomax - SCD to R leg - Wound care and dressing changes on L per surgery - cont toprol - colace PRN . - repeat LFTs tomorrow. mild elevation , hepatocellular pattern , could be due to Abx dispo: HLOC until drains are removed , then PICC and IV Abx after dc Visit type - Emergency Visit Emergency Visit: Yes ED Registration Date: 11/17/19 Care time: The patient presented to the Emergency Department on the above date and was hospitalized for further evaluation of their emergent condition. - New Patient This patient is new to me today: No - Critical Care Critical Care patient: No - Medication Review Med list reviewed for High Risk Meds patients 65 and older: Yes
[2019-12-06] MEDS: MINERAL OIL/PET HY-PHL TOPICAL OINTMENT 454 GM JAR TP SCH (21:12)
[2019-12-06] MEDS: PHENYTOIN NA EXTENDED 100 MG CAPSULE (FP) PO SCH (21:12)
[2019-12-07] MEDS ORDERED: DEXTROSE 5%-WATER - 50 ML IVPB ONE ×3 (01:18→18:14)
[2019-12-07] MEDS ORDERED: PIPERACILLIN/TAZOBACTAM 3.375 GM VIAL IVPB ONE ×3 (01:18→18:14)
[2019-12-07] MEDS: PIPERACILLIN/TAZOB 3.375 GM 3.375 GM in DEXTROSE 5%-WATER - 50 ML IVPB SCH ×3 (01:21→18:18)
[2019-12-07] MEDS: LACTOBACILLUS ACIDOPHILUS 1 TABLET PO SCH (10:56)
[2019-12-07] MEDS: PANTOPRAZOLE 40 MG TABLET PO SCH (10:56)
[2019-12-07] MEDS: TAMSULOSIN HCL 0.4 MG CAP PO SCH (10:56)
[2019-12-07] MEDS: FINASTERIDE 5 MG TABLET (FP) PO SCH (10:56)
[2019-12-07] MEDS: HYDROCHLOROTHIAZIDE 12.5 MG CAPSULE (FP) PO SCH (10:56)
[2019-12-07] MEDS: BUDESONIDE/FORMETEROL FUMARATE 80/4.5 mcg INHALER IH SCH ×2 (10:57→21:57)
[2019-12-07] MEDS: MINERAL OIL/PET HY-PHL TOPICAL OINTMENT 454 GM JAR TP SCH ×2 (10:59→21:57)
[2019-12-07 11:08] LABS: ALBUMIN 1.9 g/dl (3.4-5.0); BILIRUBIN,DIRECT 0.3 mg/dL (0.0-0.2); BILIRUBIN,TOTAL 0.6 mg/dL (0.2-1); TOT PROT 6.9 g/dl (6.4-8.2)
--- NOTE | 2019-12-07 12:00 | PN ---
Progress Note, Physician History of Present Illness: still with dirrhoea looks good hemovac still draining - Current Medication List Current Medications: Active Medications Acetaminophen (Tylenol -) 325 mg PO Q4H PRN PRN Reason: PAIN 1-3 Last Admin: 12/06/19 21:14 Dose: 325 mg Documented by: Budesonide/Formoterol Fumarate (Symbicort 80/4.5mcg -) 2 puff IH BID [facility] Last Admin: 12/07/19 10:57 Dose: 2 puff Documented by: Emollient Ointment (Aquaphor -) 1 applic TP BID [facility] Last Admin: 12/07/19 10:59 Dose: 1 applic Documented by: Finasteride (Proscar -) 5 mg PO DAILY [facility] Last Admin: 12/07/19 10:56 Dose: 5 mg Documented by: Hydrochlorothiazide (Hctz -) 12.5 mg PO DAILY [facility] Last Admin: 12/07/19 10:56 Dose: 12.5 mg Documented by: Piperacillin Sod/Tazobactam (Sod 3.375 gm/ Dextrose) 50 mls @ 100 mls/hr IVPB Q8H-IV [facility]; Protocol Last Admin: 12/07/19 10:56 Dose: 100 mls/hr Documented by: Lactobacillus Acidophilus (Bacid -) 1 tab PO DAILY [facility] Last Admin: 12/07/19 10:56 Dose: 1 tab Documented by: Metoprolol Succinate (Toprol Xl -) 50 mg PO DAILY [facility] Last Admin: 12/07/19 10:56 Dose: 50 mg Documented by: Oxycodone HCl (Roxicodone -) 5 mg PO Q4H PRN PRN Reason: PAIN 1-3 Last Admin: 12/06/19 21:13 Dose: 5 mg Documented by: Pantoprazole Sodium (Protonix -) 40 mg PO DAILY [facility] Last Admin: 12/07/19 10:56 Dose: 40 mg Documented by: Phenytoin Sodium (Dilantin -) 500 mg PO HS [facility] Last Admin: 12/06/19 21:12 Dose: 500 mg Documented by: Senna/Docusate Sodium (Pericolace -) 2 tablet PO BID PRN PRN Reason: CONSTIPATION Tamsulosin HCl (Flomax -) 0.4 mg PO DAILY@0830 [facility] Last Admin: 12/07/19 10:56 Dose: 0.4 mg Documented by: - Objective Vital Signs: Vital Signs Temperature 98.5 F 12/07/19 05:34 Pulse Rate 103 H 12/07/19 05:34 Respiratory Rate 20 12/07/19 05:34 Blood Pressure 122/68 12/07/19 05:34 O2 Sat by Pulse Oximetry (%) 95 12/07/19 05:34 Constitutional: Yes: No Distress, Calm Cardiovascular: Yes: S1, S2 Respiratory: Yes: Regular, CTA Bilaterally Gastrointestinal: Yes: Normal Bowel Sounds, Soft Musculoskeletal: Yes: WNL Extremities: Yes: Other Integumentary: Yes: Other Wound/Incision: Yes: Dressing Dry and Intact, Other (hemovac in place) Labs: CBC, BMP 12/06/19 07:50 12/05/19 06:55 INR, PTT INR 1.28 (0.83-1.09) H 11/30/19 05:25 Assessment/Plan Problem List - Problems (1) Acute blood loss anemia Code(s): D62 - ACUTE POSTHEMORRHAGIC ANEMIA (2) Infection of prosthetic left knee joint Code(s): T84.54XA - INFECT/INFLM REACTION DUE TO INTERNAL LEFT KNEE PROSTH, INIT (3) Left leg DVT Code(s): I82.402 - ACUTE EMBOLISM AND THOMBOS UNSP DEEP VEINS OF L LOW EXTREM (4) Seizure disorder Code(s): G40.909 - EPILEPSY, UNSP, NOT INTRACTABLE, WITHOUT STATUS EPILEPTICUS (5) Anemia Code(s): D64.9 - ANEMIA, UNSPECIFIED (6) BPH (benign prostatic hyperplasia) Code(s): N40.0 - BENIGN PROSTATIC HYPERPLASIA WITHOUT LOWER URINRY TRACT SYMP (7) Hypercholesteremia Code(s): E78.00 - PURE HYPERCHOLESTEROLEMIA, UNSPECIFIED (8) Osteoarthritis of left knee Code(s): M17.12 - UNILATERAL PRIMARY OSTEOARTHRITIS, LEFT KNEE Assessment/Plan Lt knee prosthesis infection s/p hardware removal s/p washout/I+D/spacer POD #1 LLE DVT -- continue Zosyn complete the course
--- NOTE | 2019-12-07 14:26 | PN ---
Physical Exam: SUBJECTIVE: Patient seen and examined. Rated pain 5/10. Had 2 loose BM overnight. OBJECTIVE: Vital Signs Period Temp Pulse Resp BP Sys/Gee Pulse Ox Last 24 Hr 98.0 F-99.0 F 102-110 16-20 111-145/68-83 92-98 GENERAL: Somnolent, but arousable. In mild distress due to pain. HEENT: NCAT, EOMI, moist mucus membranes. CARDIAC: regular rate and rhythm. S1, S2 present. No murmurs. RESPIRATORY: CTA b/l, no wheezes. ABDOMEN: Obese, non-distended, non-tender to palpation. Normoactive bowel sounds. EXTREMITIES: LLE bandaged and immobilized. 3 drains visible next to leg. Draining serosanguineous fluid. NEUROLOGICAL: Sensation and movement intact. Moves toes spontaneously. CBC, BMP 12/06/19 07:50 12/05/19 06:55 Active Medications Acetaminophen (Tylenol -) 325 mg PO Q4H PRN PRN Reason: PAIN 1-3 Last Admin: 12/06/19 21:14 Dose: 325 mg Documented by: Budesonide/Formoterol Fumarate (Symbicort 80/4.5mcg -) 2 puff IH BID [facility] Last Admin: 12/07/19 10:57 Dose: 2 puff Documented by: Emollient Ointment (Aquaphor -) 1 applic TP BID [facility] Last Admin: 12/07/19 10:59 Dose: 1 applic Documented by: Finasteride (Proscar -) 5 mg PO DAILY [facility] Last Admin: 12/07/19 10:56 Dose: 5 mg Documented by: Hydrochlorothiazide (Hctz -) 12.5 mg PO DAILY [facility] Last Admin: 12/07/19 10:56 Dose: 12.5 mg Documented by: Piperacillin Sod/Tazobactam (Sod 3.375 gm/ Dextrose) 50 mls @ 100 mls/hr IVPB Q8H-IV [facility]; Protocol Last Admin: 12/07/19 10:56 Dose: 100 mls/hr Documented by: Lactobacillus Acidophilus (Bacid -) 1 tab PO DAILY [facility] Last Admin: 12/07/19 10:56 Dose: 1 tab Documented by: Metoprolol Succinate (Toprol Xl -) 50 mg PO DAILY [facility] Last Admin: 12/07/19 10:56 Dose: 50 mg Documented by: Oxycodone HCl (Roxicodone -) 5 mg PO Q4H PRN PRN Reason: PAIN 1-3 Last Admin: 12/06/19 21:13 Dose: 5 mg Documented by: Pantoprazole Sodium (Protonix -) 40 mg PO DAILY [facility] Last Admin: 12/07/19 10:56 Dose: 40 mg Documented by: Phenytoin Sodium (Dilantin -) 500 mg PO HS [facility] Last Admin: 12/06/19 21:12 Dose: 500 mg Documented by: Senna/Docusate Sodium (Pericolace -) 2 tablet PO BID PRN PRN Reason: CONSTIPATION Tamsulosin HCl (Flomax -) 0.4 mg PO DAILY@0830 [facility] Last Admin: 12/07/19 10:56 Dose: 0.4 mg Documented by: ASSESSMENT/PLAN: 68 year old M PMH L TKR 2018, DVT 2017 (on coumadin s/p IVC filter), HTN, hypercholesterolemia, GERD, seizure disorder, BPH, OA who presented with worsening L knee pain and swelling with drainage for several weeks. Pt admitted for infected L knee. He is s/p I&D of L knee, L TKA hardware removal, tibial tubercle osteotomy, and placement of L knee abx spacer on 11/18/2019. S/p I&D and exchange of abx spacer on 11/27. L infected periprosthetic knee - will c/w Zosyn, started 11/20/2019. Today is day 18. - pending PICC placement - Ortho consulted. - Drain removed at 5:30PM by ortho team. Strict NWB LLE. - will c/w PT - c/w pain control w/ oxycodone 5mg q6H, acetaminophen 325 PRN - c/w symbicort - c/w probiotics Sacral ulcer -c/w aquaphor - continue to monitor Anemia, resolved - f/u CBC Seizure disorder -c/w dilantin 500 qHS H/o DVT - IVC filter on 06/2018. No need to resume AC. HTN, Hypercholesterolemia - c/w metoprolol succinate 50 qD, HCTZ 12.5mg qD BPH -c/w home tamsulosin, finasteride FEN - No standing fluids - Monitor and replete electrolytes - Regular diet Ppx - DVT: SCD's - GI: Protonix Dispo: Continue to monitor Visit type - Emergency Visit Emergency Visit: Yes ED Registration Date: 11/17/19 Care time: The patient presented to the Emergency Department on the above date and was hospitalized for further evaluation of their emergent condition. - New Patient This patient is new to me today: No - Critical Care Critical Care patient: No - Medication Review Med list reviewed for High Risk Meds patients 65 and older: Yes ATTENDING PHYSICIAN STATEMENT I saw and evaluated the patient. I reviewed the resident's note and discussed the case with the resident. I agree with the resident's findings and plan as documented. SUBJECTIVE: OBJECTIVE: ASSESSMENT AND PLAN:
--- NOTE | 2019-12-07 17:30 | PN ---
Progress Note (short form) - Note Progress Note: 68M s/p I&D left knee, removal of infected left knee hardware, and placement of antibiotic spacer. Feeling well Apyrexial Diarrhoea persists Stable general medical status Hb and WCC normal Left knee: Dressing C/D/I. NVI. Drains removed on rounds today. 68M s/p I&D left knee, removal of infected left knee hardware, and placement of antibiotic spacer. -Pt. needs PICC line inserted w/chest x-ray for line placement confirmation prior to discharge. -Pain control. -DVT PPx: -Chemical: ASA 81mg PO BID x 6 weeks; recommend outpatient follow-up with hematology team for workup of undiagnosed coagulopathy. -Mechanical: BARB's, SCD's. -Incentive spirometry q15 min. -PT/OT/Rehab, OOB. -Strict NWB LLE. -Continue IV antibiotics as per Dr. Bangura (infectious disease team) -f/u AM labs. -Diet as tolerated. -Care per medical hospitalist, hematology, & ID teams. -Discharge planning: rehab; IV antibiotics via PICC line; strict NWB LLE; will follow. Jonathan Langston MD (Orthopaedic Surgery).
--- NOTE | 2019-12-07 18:32 | PN ---
Teaching Attending Note Name of Resident: Dilcia Gonzalez ATTENDING PHYSICIAN STATEMENT I saw and evaluated the patient. I reviewed the resident's note and discussed the case with the resident. I agree with the resident's findings and plan as documented. SUBJECTIVE: he feels very tired and uncomfortable OBJECTIVE: NAD, awake, alert CV: RRR Lungs: CTAB Abd: soft, NT, ND , NL BS Ext : No edema or erythema on RLE, or upper extremities. LLE in in a long dressing and a splint, with 3 ERIN drains ( bloody fluid ) . can move toes and has normal sensation A/P Unfortunate 68 y/o man with Left TKR 2018, DVT 2017 (on coumadin s/p IVC filter), HTN, HLD, GERD, seizure disorder, BPH, OA who presented with pain in L knee and was found to have prosthetic infection , now s/p I&D, removal of prosthesis and Abx spaced on 11/17, then evacuation of hematoma and revision of spaced on 11/27. 1- L knee prosthesis infection : s/p I&D, removal of prosthesis and Abx spaced on 11/17. 2- S/p L knee hematoma , s/p evacuation of hematoma and revision of spaced on 11/27. 3- S/p acute blood loss anemia 4- chronic L popletial DVT. s/p IVC filter 07/04 5- H/o seizure DO 6- Urinary retention. resolved 7- Mild transaminitis : possible due to Abx Plan: - cont zosyn - drain management per dr. Langston - cont to hold AC due to L knee hematoma and persistent bloody drainage and h/o previous hematoma in knee - no Weight baring on L LE - cont home dilantin - cont home finasteride and flomax - SCD to R leg - cont toprol - colace PRN . - f//u LFTs
[2019-12-07] MEDS: oxyCODONE HCL 5 MG TABLET PO PRN ×2 (18:46→21:58)
[2019-12-07] MEDS: ACETAMINOPHEN 325 MG TABLET (FP) PO PRN ×2 (18:48→21:57)
[2019-12-07] MEDS: PHENYTOIN NA EXTENDED 100 MG CAPSULE (FP) PO SCH (21:56)
[2019-12-08] MEDS ORDERED: DEXTROSE 5%-WATER - 50 ML IVPB ONE ×3 (01:44→17:44)
[2019-12-08] MEDS ORDERED: PIPERACILLIN/TAZOBACTAM 3.375 GM VIAL IVPB ONE ×3 (01:44→17:44)
[2019-12-08] MEDS: PIPERACILLIN/TAZOB 3.375 GM 3.375 GM in DEXTROSE 5%-WATER - 50 ML IVPB SCH ×3 (02:04→18:06)
[2019-12-08 07:37] LABS: HEMATOCRIT 29.8 % (35.4-49); HEMOGLOBIN 9.7 GM/dL (11.7-16.9); MCH 31.1 pg (25.7-33.7); MCHC 32.6 g/dl (32.0-35.9); MEAN CELL VOLUME 95.4 fl (80-96); MEAN PLT VOLUME 7.5 fl (7.5-11.1); PLATELET COUNT 246 K/MM3 (134-434); RBC 3.12 M/mm3 (4.00-5.60); RDW 19.5 % (11.9-15.9)
[2019-12-08 08:04] LABS: ALBUMIN 1.7 g/dl (3.4-5.0); BILIRUBIN,DIRECT 0.3 mg/dL (0.0-0.2); BILIRUBIN,TOTAL 0.5 mg/dL (0.2-1); TOT PROT 6.3 g/dl (6.4-8.2)
[2019-12-08] MEDS: TAMSULOSIN HCL 0.4 MG CAP PO SCH (09:08)
[2019-12-08] MEDS: LACTOBACILLUS ACIDOPHILUS 1 TABLET PO SCH (09:08)
[2019-12-08] MEDS: HYDROCHLOROTHIAZIDE 12.5 MG CAPSULE (FP) PO SCH (09:08)
[2019-12-08] MEDS: BUDESONIDE/FORMETEROL FUMARATE 80/4.5 mcg INHALER IH SCH ×2 (09:09→21:27)
[2019-12-08] MEDS: FINASTERIDE 5 MG TABLET (FP) PO SCH (09:09)
[2019-12-08] MEDS: MINERAL OIL/PET HY-PHL TOPICAL OINTMENT 454 GM JAR TP SCH ×2 (09:09→21:26)
[2019-12-08] MEDS: PANTOPRAZOLE 40 MG TABLET PO SCH (09:09)
--- NOTE | 2019-12-08 10:35 | RAPID ---
Physical Examination Vital Signs: Vital Signs Temperature 99.1 F 12/08/19 06:00 Pulse Rate 95 H 12/08/19 06:00 Respiratory Rate 20 12/08/19 06:00 Blood Pressure 134/74 12/08/19 06:00 O2 Sat by Pulse Oximetry (%) 98 12/08/19 06:00 Labs: CBC, BMP 12/08/19 07:05 12/05/19 06:55 Rapid Response - Rapid Response Assessment: Rapid response called overhead. train caller team arrived immediately. Upon arrival patient was complaining of midaxillary Right chest pain that was tender to palpitation. Primary team notified and made aware. Vitals: BP: 167/59 Pulse: 110 MAP: 123 SpO2: 95% A/P: #Chest Pain -stat EKG ordered -stat CBC ordered -stat cardiac profile ordered -transferred to telemetry as per primary teams request for cardiac monitoring
--- NOTE | 2019-12-08 11:40 | PN ---
Progress Note, Physician History of Present Illness: patient has rt sided chest pain drain tubes removed patient burping a lot - Current Medication List Current Medications: Active Medications Acetaminophen (Tylenol -) 325 mg PO Q4H PRN PRN Reason: PAIN 1-3 Last Admin: 12/07/19 21:57 Dose: 325 mg Documented by: Budesonide/Formoterol Fumarate (Symbicort 80/4.5mcg -) 2 puff IH BID [facility] Last Admin: 12/08/19 09:09 Dose: 2 puff Documented by: Emollient Ointment (Aquaphor -) 1 applic TP BID [facility] Last Admin: 12/08/19 09:09 Dose: 1 applic Documented by: Famotidine (Pepcid -) 20 mg PO DAILY [facility] Finasteride (Proscar -) 5 mg PO DAILY [facility] Last Admin: 12/08/19 09:09 Dose: 5 mg Documented by: Hydrochlorothiazide (Hctz -) 12.5 mg PO DAILY [facility] Last Admin: 12/08/19 09:08 Dose: 12.5 mg Documented by: Piperacillin Sod/Tazobactam (Sod 3.375 gm/ Dextrose) 50 mls @ 100 mls/hr IVPB Q8H-IV [facility]; Protocol Last Admin: 12/08/19 09:09 Dose: 100 mls/hr Documented by: Lactobacillus Acidophilus (Bacid -) 1 tab PO DAILY [facility] Last Admin: 12/08/19 09:08 Dose: 1 tab Documented by: Metoprolol Succinate (Toprol Xl -) 50 mg PO DAILY [facility] Last Admin: 12/08/19 09:08 Dose: 50 mg Documented by: Oxycodone HCl (Roxicodone -) 5 mg PO Q4H PRN PRN Reason: PAIN 1-3 Last Admin: 12/07/19 21:58 Dose: 5 mg Documented by: Pantoprazole Sodium (Protonix -) 40 mg PO DAILY [facility] Last Admin: 12/08/19 09:09 Dose: 40 mg Documented by: Phenytoin Sodium (Dilantin -) 500 mg PO [facility] Last Admin: 12/07/19 21:56 Dose: 500 mg Documented by: Senna/Docusate Sodium (Pericolace -) 2 tablet PO BID PRN PRN Reason: CONSTIPATION Tamsulosin HCl (Flomax -) 0.4 mg PO DAILY@0830 [facility] Last Admin: 12/08/19 09:08 Dose: 0.4 mg Documented by: - Objective Vital Signs: Vital Signs Temperature 99.1 F 12/08/19 06:00 Pulse Rate 95 H 12/08/19 06:00 Respiratory Rate 12/08/19 06:00 Blood Pressure 134/74 12/08/19 06:00 O2 Sat by Pulse Oximetry (%) 94 L 12/08/19 09:00 Constitutional: Yes: No Distress, Calm Cardiovascular: Yes: S1, S2 Respiratory: Yes: Regular, CTA Bilaterally Gastrointestinal: Yes: Normal Bowel Sounds, Soft Musculoskeletal: Yes: WNL Extremities: Yes: Other Wound/Incision: Yes: Dressing Dry and Intact Neurological: Yes: Alert Labs: CBC, BMP 12/08/19 07:05 INR, PTT INR 1.28 (0.83-1.09) H 11/30/19 05:25 Assessment/Plan Problem List - Problems (1) Acute blood loss anemia Code(s): D62 - ACUTE POSTHEMORRHAGIC ANEMIA (2) Infection of prosthetic left knee joint Code(s): T84.54XA - INFECT/INFLM REACTION DUE TO INTERNAL LEFT KNEE PROSTH, INIT (3) Left leg DVT Code(s): I82.402 - ACUTE EMBOLISM AND THOMBOS UNSP DEEP VEINS OF L LOW EXTREM (4) Seizure disorder Code(s): G40.909 - EPILEPSY, UNSP, NOT INTRACTABLE, WITHOUT STATUS EPILEPTICUS (5) Anemia Code(s): D64.9 - ANEMIA, UNSPECIFIED (6) BPH (benign prostatic hyperplasia) Code(s): N40.0 - BENIGN PROSTATIC HYPERPLASIA WITHOUT LOWER URINRY TRACT SYMP (7) Hypercholesteremia Code(s): E78.00 - PURE HYPERCHOLESTEROLEMIA, UNSPECIFIED (8) Osteoarthritis of left knee Code(s): M17.12 - UNILATERAL PRIMARY OSTEOARTHRITIS, LEFT KNEE Assessment/Plan Lt knee prosthesis infection s/p hardware removal s/p washout/I+D/spacer POD #1 LLE DVT -- continue Zosyn complete the course
[2019-12-08] MEDS: FAMOTIDINE 20 MG TABLET PO SCH (12:09)
[2019-12-08 12:13] LABS: ALBUMIN 1.8 g/dl (3.4-5.0); ALK PHOS 214 U/L (45-117); ANION GAP 5 MMOL/L (8-16); BILIRUBIN,TOTAL 0.3 mg/dL (0.2-1); CALCIUM 7.8 mg/dL (8.5-10.1); CHLORIDE 105 mmol/L (98-107); CO2 29 mmol/L (21-32); CREATININE 0.8 mg/dL (0.55-1.3); GLUCOSE,RANDOM 114 mg/dL (74-106); MAGNESIUM 2.2 mg/dL (1.8-2.4); POTASSIUM 3.7 mmol/L (3.5-5.1); SGOT/AST 48 U/L (15-37); SGPT/ALT 74 U/L (13-61); SODIUM 139 mmol/L (136-145); TOT PROT 6.4 g/dl (6.4-8.2)
--- NOTE | 2019-12-08 12:29 | EKG ---
Test Reason : Blood Pressure : / mmHG Vent. Rate : 109 BPM Atrial Rate : 109 BPM P-R Int : 194 ms QRS Dur : 108 ms QT Int : 440 ms P-R-T Axes : 035 -45 033 degrees QTc Int : 592 ms SINUS TACHYCARDIA LEFT AXIS DEVIATION SEPTAL INFARCT (CITED ON OR BEFORE 26-JUN-2018) T WAVE ABNORMALITY, CONSIDER ANTERIOR ISCHEMIA PROLONGED QT ABNORMAL ECG WHEN COMPARED WITH ECG OF 18-NOV-2019 00:23, [place] INTERVAL HAS DECREASED VENT. RATE HAS INCREASED BY 36 BPM T WAVE INVERSION NOW EVIDENT IN ANTERIOR LEADS QT HAS LENGTHENED Confirmed by Bari Dominguez MD ([id number]) on 12/08/2019 12:29:35 PM Referred By: Jonathon ODOM Confirmed By:Bari Dominguez MD
[2019-12-08 12:42] LABS: ANISOCYTOSIS 1+; MACROCYTOSIS 1+; PLATELET ESTIMATE NORMAL
--- NOTE | 2019-12-08 13:07 | CON.CARD ---
Cardiology Consult (text) - Consultation Consultation Note: Consult Specialty:: Cardiology Referred by:: Medicine Reason for Consultation:: chest pain - History of Present Illness Chief Complaint: chest pain History of Present Illness: 69M h/o HTN, HLD, h/o DVT lower extremity on warfarin, seizure disorder, and osteoarthritis of the left knee s/p left total knee replacement p/w knee pain, with infection of prosthesis now s/p surgery and placement of spacer. He was admitted 11/16. Today he complained of R sided chest pain after eating, felt like gas. Pain in lower R chest, not radiating, worse with palpation. no dyspnea, palps, dizziness - Alcohol/Substance Use Hx Alcohol Use: No - Smoking History Smoking history: Never smoked Have you smoked in the past 12 months: No Home Medications - Allergies Allergies/Adverse Reactions: Allergies Allergy/AdvReac Type Severity Reaction Status Date / Time No Known Allergies Allergy Verified 11/11/19 16:05 Home Medications Medication Instructions Recorded Phenytoin Sodium Extended 500 mg PO HS #90 capsule 07/15/18 Warfarin Na [Coumadin -] 3 mg PO HS 07/24/18 Amlodipine-Olmesartan 10-40 mg 1 tab PO DAILY 11/11/19 Enoxaparin [Lovenox -] 60 mg SQ Q12H 11/11/19 Finasteride [Proscar] 5 mg PO DAILY 11/11/19 Fluticasone/Vilanterol [Breo 1 each IH HS 11/11/19 Ellipta 100-25 Mcg INH] Hydrochlorothiazide [Hctz -] 12.5 mg PO DAILY 11/11/19 Metoprolol Succinate 50 mg PO DAILY 11/11/19 Tamsulosin HCl [Flomax] 0.4 mg PO DAILY 11/11/19 Tramadol HCl 50 mg PO TID 11/18/19 Family Disease History - Family Disease History Family History: Unremarkable Review of Systems - Review of Systems Constitutional: reports: No Symptoms Eyes: reports: No Symptoms HENT: reports: No Symptoms Neck: reports: No Symptoms Cardiovascular: reports: No Symptoms Respiratory: reports: No Symptoms Gastrointestinal: reports: No Symptoms Genitourinary: reports: No Symptoms Musculoskeletal: reports: No Symptoms Integumentary: reports: No Symptoms Neurological: reports: No Symptoms Endocrine: reports: No Symptoms Hematology/Lymphatic: reports: No Symptoms Psychiatric: reports: No Symptoms Vital Signs: Vital Signs Period Temp Pulse Resp BP Sys/Gee Pulse Ox Last 24 Hr 99.0 F-100.2 F 95-103 20-20 111-142/70-83 92-99 Constitutional: Yes: No Distress, Calm Eyes: Yes: Conjunctiva Clear, EOM Intact HENT: Yes: Atraumatic, Normocephalic Neck: Yes: Supple, Trachea Midline Respiratory: Yes: Regular, CTA Bilaterally Gastrointestinal: Yes: Normal Bowel Sounds, Soft Cardiovascular: Yes: Regular Rate and Rhythm JVD: No Carotid Bruit: No PMI: Non-Displaced Heart Sounds: Yes: S1, S2 Murmur: No: Systolic Murmur Musculoskeletal: No: Back Pain Extremities: No: Cold Edema: No Integumentary: No: Jaundice Neurological: Yes: Alert, Oriented Psychiatric: No: Agitated Assessment/Plan EKG: sinus tach, prolonged QTc, new TWI V2-3 69M h/o HTN, HLD, h/o DVT with infected TKR prosthesis now with chest pain chest pain - atypical symptoms, likely GI - trop neg x 1, EKG with new TWI - trend trop, monitoring on tele hx DVT - anticoagulation has been held post op - manage per primary HTN - cont current meds s/p L TKR with prosthetic infection - s/p removal of prothesis and placement of antibiotic spacer 11/17, evacuation of hematoma and revision of spacer on 11/27 - manage per ortho anemia - 2/2 blood loss - holding ac
--- NOTE | 2019-12-08 14:25 | PN ---
Physical Exam: SUBJECTIVE: Patient seen and examined. Rated pain 5/10 currently. Denies fevers, chills, SOB, c/p. Rapid response today due to chest discomfort. Stated he feels it is gastric reflux. OBJECTIVE: Vital Signs Period Temp Pulse Resp BP Sys/Gee Pulse Ox Last 24 Hr 99.1 F-100.2 F 95-100 20-20 133-142/70-77 94-99 GENERAL: Awake and alert, not in acute distress. HEENT: NCAT, EOMI, moist mucus membranes. CARDIAC: regular rate and rhythm. S1, S2 present. No murmurs. RESPIRATORY: CTA b/l, no wheezes. ABDOMEN: Obese, non-distended, non-tender to palpation. Normoactive bowel sounds. EXTREMITIES: LLE bandaged and immobilized. Clean, dry bandages. NEUROLOGICAL: Sensation and movement intact. Moves toes spontaneously. CBC, BMP 12/08/19 07:05 12/08/19 11:23 Active Medications Acetaminophen (Tylenol -) 325 mg PO Q4H PRN PRN Reason: PAIN 1-3 Amino Acids (Prosource No Carb Liquid Pkt) 30 ml PO BID@0800,1730 [facility] Ascorbic Acid (Vitamin C -) 250 mg PO BID [facility] Budesonide/Formoterol Fumarate (Symbicort 80/4.5mcg -) 2 puff IH BID [facility] Last Admin: 12/08/19 09:09 Dose: 2 puff Documented by: Emollient Ointment (Aquaphor -) 1 applic TP BID [facility] Last Admin: 12/08/19 09:09 Dose: 1 applic Documented by: Famotidine (Pepcid -) 20 mg PO DAILY [facility] Last Admin: 12/08/19 12:09 Dose: 20 mg Documented by: Finasteride (Proscar -) 5 mg PO DAILY [facility] Last Admin: 12/08/19 09:09 Dose: 5 mg Documented by: Hydrochlorothiazide (Hctz -) 12.5 mg PO DAILY [facility] Last Admin: 12/08/19 09:08 Dose: 12.5 mg Documented by: Piperacillin Sod/Tazobactam (Sod 3.375 gm/ Dextrose) 50 mls @ 100 mls/hr IVPB Q8H-IV [facility]; Protocol Last Admin: 12/08/19 09:09 Dose: 100 mls/hr Documented by: Famotidine/Sodium Chloride (Pepcid 20 Mg Premixed Ivpb -) 20 mg in 50 mls @ 100 mls/hr IVPB BID [facility] Lactobacillus Acidophilus (Bacid -) 1 tab PO DAILY [facility] Last Admin: 12/08/19 09:08 Dose: 1 tab Documented by: Metoprolol Succinate (Toprol Xl -) 50 mg PO DAILY [facility] Last Admin: 12/08/19 09:08 Dose: 50 mg Documented by: Multivitamins/Minerals (Certavite-Antioxidant Liquid) 15 ml PO DAILY [facility] Pantoprazole Sodium (Protonix -) 40 mg PO DAILY [facility] Last Admin: 12/08/19 09:09 Dose: 40 mg Documented by: Phenytoin Sodium (Dilantin -) 500 mg PO HS [facility] Last Admin: 12/07/19 21:56 Dose: 500 mg Documented by: Senna/Docusate Sodium (Pericolace -) 2 tablet PO BID PRN PRN Reason: CONSTIPATION Tamsulosin HCl (Flomax -) 0.4 mg PO DAILY@0830 [facility] Last Admin: 12/08/19 09:08 Dose: 0.4 mg Documented by: ASSESSMENT/PLAN: 68 year old M PMH L TKR 2019, DVT 2017 (on coumadin s/p IVC filter), HTN, hypercholesterolemia, GERD, seizure disorder, BPH, OA who presented with worsening L knee pain and swelling with drainage for several weeks. Pt admitted for infected L knee. He is s/p I&D of L knee, L TKA hardware removal, tibial tubercle osteotomy, and placement of L knee abx spacer on 11/18/2019. S/p I&D and exchange of abx spacer on 11/27. Chest discomfort, atypical presentation. Likely GI in nature -Rapid response called -Cardio consulted - trop negative x1 - EKG w/ prolonged Qtc, new T wave inversion in v2 and v3 - repeat EKG in the morning L infected periprosthetic knee - will c/w Zosyn, started 11/20/2019. Today is day 19. - pending PICC placement - Ortho consulted. - will c/w PT - c/w pain control w/ oxycodone 5mg q6H, acetaminophen 325 PRN - c/w symbicort - c/w probiotics Sacral ulcer -c/w aquaphor - continue to monitor Anemia, resolved - f/u CBC Seizure disorder -c/w dilantin 500 qHS H/o DVT - IVC filter on 06/2018. No need to resume AC. HTN, Hypercholesterolemia - c/w metoprolol succinate 50 qD, HCTZ 12.5mg qD BPH -c/w home tamsulosin, finasteride FEN - No standing fluids - Monitor and replete electrolytes - Regular diet Ppx - DVT: SCD's on R leg - GI: Protonix Dispo: Monitor in tele Visit type - Emergency Visit Emergency Visit: Yes ED Registration Date: 11/17/19 Care time: The patient presented to the Emergency Department on the above date and was hospitalized for further evaluation of their emergent condition. - New Patient This patient is new to me today: No - Critical Care Critical Care patient: No - Medication Review Med list reviewed for High Risk Meds patients 65 and older: Yes ATTENDING PHYSICIAN STATEMENT I saw and evaluated the patient. I reviewed the resident's note and discussed the case with the resident. I agree with the resident's findings and plan as documented. SUBJECTIVE: OBJECTIVE: ASSESSMENT AND PLAN:
[2019-12-08] MEDS ORDERED: ACETAMINOPHEN 325 MG TABLET (FP) PO PRN (14:51)
[2019-12-08] MEDS: AMINO ACIDS/PROTEIN HYDROLYS 30 ML LIQUID.PKT PO SCH (18:06)
--- NOTE | 2019-12-08 18:10 | PN ---
Teaching Attending Note Name of Resident: Dilcia Gonzalez ATTENDING PHYSICIAN STATEMENT I saw and evaluated the patient. I reviewed the resident's note and discussed the case with the resident. I agree with the resident's findings and plan as documented. SUBJECTIVE: Patient is comfortable with NAD, c/o having indigestion, patient was transferred to [facility] for further close monitoring. OBJECTIVE: Vital Signs Temperature 98.5 F 12/08/19 14:00 Pulse Rate 103 H 12/08/19 14:00 Respiratory Rate 12/08/19 06:00 Blood Pressure 138/78 12/08/19 14:00 O2 Sat by Pulse Oximetry (%) 94 L 12/08/19 09:00 PE: per resident's note Right knee , drainage is out CBCD WBC 7.0 K/mm3 (4.0-10.0) 12/08/19 07:05 WBC Cancelled 12/08/19 07:05 RBC 3.12 M/mm3 (4.00-5.60) L 12/08/19 07:05 RBC Cancelled 12/08/19 07:05 Hgb 9.7 GM/dL (11.7-16.9) L 12/08/19 07:05 Hgb Cancelled 12/08/19 07:05 Hct 29.8 % (35.4-49) L 12/08/19 07:05 Hct Cancelled 12/08/19 07:05 MCV 95.4 fl (80-96) 12/08/19 07:05 MCV Cancelled 12/08/19 07:05 MCHC 32.6 g/dl (32.0-35.9) 12/08/19 07:05 MCHC Cancelled 12/08/19 07:05 RDW 19.5 % (11.9-15.9) H 12/08/19 07:05 RDW Cancelled 12/08/19 07:05 Plt Count 246 K/MM3 (134-434) 12/08/19 07:05 Plt Count Cancelled 12/08/19 07:05 MPV 7.5 fl (7.5-11.1) 12/08/19 07:05 MPV Cancelled 12/08/19 07:05 CMP Sodium 139 mmol/L (136-145) 12/08/19 11:23 Potassium 3.7 mmol/L (3.5-5.1) 12/08/19 11:23 Chloride 105 mmol/L (98-107) 12/08/19 11:23 Carbon Dioxide 29 mmol/L (21-32) 12/08/19 11:23 Anion Gap 5 MMOL/L (8-16) L 12/08/19 11:23 BUN 14.0 mg/dL (7-18) 12/08/19 11:23 Creatinine 0.8 mg/dL (0.55-1.3) 12/08/19 11:23 Random Glucose 114 mg/dL (74-106) H 12/08/19 11:23 Calcium 7.8 mg/dL (8.5-10.1) L 12/08/19 11:23 Total Bilirubin 0.3 mg/dL (0.2-1) 12/08/19 11:23 AST 48 U/L (15-37) H 12/08/19 11:23 ALT 74 U/L (13-61) H 12/08/19 11:23 Alkaline Phosphatase 214 U/L (45-117) H 12/08/19 11:23 Total Protein 6.4 g/dl (6.4-8.2) 12/08/19 11:23 Albumin 1.8 g/dl (3.4-5.0) L 12/08/19 11:23 CARDIAC ENZYMES Creatine Kinase 51 U/L (26-308) 12/08/19 11:23 Troponin I < 0.02 ng/ml (0.00-0.05) 12/08/19 11:23 Current Medications Generic Name Dose Route Start Last Admin Trade Name Sabine PRN Reason Stop Dose Admin Acetaminophen 325 mg 12/08/19 14:51 Tylenol - PO Q4H PRN PAIN 1-3 Amino Acids 30 ml 12/08/19 17:30 12/08/19 18:06 Prosource No Carb Liquid Pkt PO 30 ml BID@0800,1730 [facility] Administration Ascorbic Acid 250 mg 12/08/19 22:00 Vitamin C - PO BID [facility] Budesonide/Formoterol Fumarate 2 puff 12/04/19 10:00 12/08/19 09:09 Symbicort 80/4.5mcg - IH 2 puff BID [facility] Administration Emollient Ointment 1 applic 12/06/19 22:00 12/08/19 09:09 Aquaphor - TP 1 applic BID [facility] Administration Famotidine 20 mg 12/08/19 10:45 12/08/19 12:09 Pepcid - PO 20 mg DAILY [facility] Administration Finasteride 5 mg 12/04/19 10:00 12/08/19 09:09 Proscar - PO 5 mg DAILY [facility] Administration Hydrochlorothiazide 12.5 mg 12/03/19 10:00 12/08/19 09:08 Hctz - PO 12.5 mg DAILY [facility] Administration Piperacillin Sod/Tazobactam 50 mls @ 100 mls/hr 12/04/19 10:00 12/08/19 18:06 Sod 3.375 gm/ Dextrose IVPB 100 mls/hr Q8H-IV [facility] Administration Protocol Famotidine/Sodium Chloride 20 mg in 50 mls @ 100 mls/hr 12/08/19 22:00 Pepcid 20 Mg Premixed Ivpb - IVPB BID [facility] Lactobacillus Acidophilus 1 tab 12/04/19 10:00 12/08/19 09:08 Bacid - PO 1 tab DAILY [facility] Administration Metoprolol Succinate 50 mg 12/04/19 10:00 12/08/19 09:08 Toprol Xl - PO 50 mg DAILY [facility] Administration Multivitamins/Minerals 15 ml 12/09/19 10:00 Certavite-Antioxidant Liquid PO DAILY [facility] Pantoprazole Sodium 40 mg 12/04/19 10:00 12/08/19 09:09 Protonix - PO 40 mg DAILY [facility] Administration Phenytoin Sodium 500 mg 12/04/19 22:00 12/07/19 21:56 Dilantin - PO 500 mg HS [facility] Administration Senna/Docusate Sodium 2 tablet 12/05/19 11:53 Pericolace - PO BID PRN [facility] Tamsulosin HCl 0.4 mg 12/04/19 08:30 12/08/19 09:08 Flomax - PO 0.4 mg DAILY@0830 [facility] Administration Home Medications Medication Instructions Recorded Phenytoin Sodium Extended 500 mg PO HS #90 capsule 07/15/18 Warfarin Na [Coumadin -] 3 mg PO HS 07/24/18 Amlodipine-Olmesartan 10-40 mg 1 tab PO DAILY 11/11/19 Enoxaparin [Lovenox -] 60 mg SQ Q12H 11/11/19 Finasteride [Proscar] 5 mg PO DAILY 11/11/19 Fluticasone/Vilanterol [Breo 1 each IH HS 11/11/19 Ellipta 100-25 Mcg INH] Hydrochlorothiazide [Hctz -] 12.5 mg PO DAILY 11/11/19 Metoprolol Succinate 50 mg PO DAILY 11/11/19 Tamsulosin HCl [Flomax] 0.4 mg PO DAILY 11/11/19 Tramadol HCl 50 mg PO TID 11/18/19 Microbiology 11/28/19 11:13 Knee - Left Gram Stain - Final 11/28/19 11:13 Knee - Left Wound Culture - Preliminary No growth. 11/18/19 18:31 Tissue-Other AFB Smear Concentration - Final 11/18/19 18:31 Tissue-Other Mycobacterial Culture - Preliminary 11/20/19 19:35 Blood - Peripheral Venous Blood Culture - Final NO GROWTH AFTER 5 DAYS INCUBATION 11/20/19 19:50 Blood - Peripheral Venous Blood Culture - Final NO GROWTH AFTER 5 DAYS INCUBATION 11/18/19 18:31 Tissue-Other Gram Stain - Final 11/18/19 18:31 Tissue-Other Tissue Culture - Final Proteus Mirabilis 11/18/19 18:31 Tissue-Other Anaerobic Culture - Final Prevotella Disiens 11/18/19 18:31 Tissue-Other LIDIA Preparation - Preliminary 11/18/19 18:31 Tissue-Other Fungal Culture - Preliminary 11/17/19 23:20 Blood - Peripheral Venous Blood Culture - Final NO GROWTH AFTER 5 DAYS INCUBATION 11/17/19 23:20 Blood - Peripheral Venous Blood Culture - Final NO GROWTH AFTER 5 DAYS INCUBATION 11/18/19 16:37 Knee - Left AFB Smear Concentration - Final 11/18/19 16:37 Knee - Left Mycobacterial Culture - Preliminary 11/21/19 06:00 Urine - Urine Clean Catch Urine Culture - Final NO GROWTH OBTAINED 11/18/19 16:37 Knee - Left Gram Stain - Final 11/18/19 16:37 Knee - Left Wound Culture - Final Proteus Mirabilis 11/17/19 23:20 Knee - Left Gram Stain - Final 11/17/19 23:20 Knee - Left Wound Culture - Final Serratia Marcescens Enterococcus Faecalis Proteus Mirabilis 11/18/19 19:51 Urine - Urine - Catheterized Urine Culture - Final NO GROWTH OBTAINED 11/18/19 16:37 Knee - Left LIDIA Preparation - Preliminary 11/18/19 16:37 Knee - Left Fungal Culture - Preliminary ASSESSMENT AND PLAN: This patient is a 68yom with Pmhx of Left TKR 2018, DVT 2016 (on coumadin s/p IVC filter by Dr Segundo Amaya in 06/2018), HTN, HLD, GERD, seizure disorder, BPH, OA who presented with pain in L knee and was found to have prosthetic infection , now s/p I&D, removal of prosthesis and Abx spaced on 11/17, then evacuation of hematoma. # L knee prosthesis infection : s/p I&D, removal of prosthesis and Abx spaced on 11/17, on IV zosyn continue # S/p L knee hematoma , s/p evacuation of hematoma and revision , no further bleeding, h/h stable , drainage were removed by the surgical team, patient of Dr dangelo. will continue to monitor H/H, no Weight baring on L LE as per dr Dangelo # S/p acute blood loss anemia : stable now , no further bleed, # chronic L popletial DVT. s/p IVC filter 07/04 , as per dr amaya , no need for further Ac # H/o seizure DO continue dilantin # Urinary retention. resolved cont home finasteride and flomax # Mild transaminitis : possible due to Abx SCD to R leg Monitor LFTs
[2019-12-08] MEDS: ASCORBIC ACID 250 MG TABLET (FP) PO SCH (21:26)
[2019-12-08] MEDS: FAMOTIDINE 20 MG/50 ML IVPB 20 MG/50 ML MG IVPB SCH (21:26)
[2019-12-08] MEDS: PHENYTOIN NA EXTENDED 100 MG CAPSULE (FP) PO SCH (21:26)
[2019-12-09] MEDS ORDERED: PIPERACILLIN/TAZOBACTAM 3.375 GM VIAL IVPB ONE ×3 (02:17→16:42)
[2019-12-09] MEDS ORDERED: DEXTROSE 5%-WATER - 50 ML IVPB ONE ×3 (02:17→16:42)
[2019-12-09] MEDS: PIPERACILLIN/TAZOB 3.375 GM 3.375 GM in DEXTROSE 5%-WATER - 50 ML IVPB SCH ×3 (03:24→17:04)
[2019-12-09 07:33] LABS: HEMATOCRIT 29.1 % (35.4-49); HEMOGLOBIN 9.8 GM/dL (11.7-16.9); MCHC 33.5 g/dl (32.0-35.9); MEAN CELL VOLUME 95.6 fl (80-96); MEAN PLT VOLUME 7.6 fl (7.5-11.1); PLATELET COUNT 230 K/MM3 (134-434); RBC 3.05 M/mm3 (4.00-5.60); RDW 18.9 % (11.9-15.9); WHITE BLOOD COUNT 7.3 K/mm3 (4.0-10.0)
[2019-12-09 07:42] LABS: ANION GAP 5 MMOL/L (8-16); BLOOD UREA NITROGEN 14.3 mg/dL (7-18); CALCIUM 7.8 mg/dL (8.5-10.1); CHLORIDE 104 mmol/L (98-107); CO2 29 mmol/L (21-32); CREATININE 0.8 mg/dL (0.55-1.3); GLUCOSE,RANDOM 92 mg/dL (74-106); POTASSIUM 4.1 mmol/L (3.5-5.1); SODIUM 138 mmol/L (136-145)
[2019-12-09] MEDS: TAMSULOSIN HCL 0.4 MG CAP PO SCH (07:46)
[2019-12-09] MEDS: AMINO ACIDS/PROTEIN HYDROLYS 30 ML LIQUID.PKT PO SCH ×2 (07:46→16:44)
[2019-12-09] MEDS: FINASTERIDE 5 MG TABLET (FP) PO SCH (10:41)
[2019-12-09] MEDS: ASCORBIC ACID 250 MG TABLET (FP) PO SCH ×2 (10:41→21:19)
[2019-12-09] MEDS: PANTOPRAZOLE 40 MG TABLET PO SCH (10:41)
[2019-12-09] MEDS: FAMOTIDINE 20 MG/50 ML IVPB 20 MG/50 ML MG IVPB SCH (10:41)
[2019-12-09] MEDS: FAMOTIDINE 20 MG TABLET PO SCH (10:41)
[2019-12-09] MEDS: LACTOBACILLUS ACIDOPHILUS 1 TABLET PO SCH (10:41)
[2019-12-09] MEDS: HYDROCHLOROTHIAZIDE 12.5 MG CAPSULE (FP) PO SCH (10:41)
[2019-12-09] MEDS: BUDESONIDE/FORMETEROL FUMARATE 80/4.5 mcg INHALER IH SCH ×2 (10:42→21:16)
[2019-12-09] MEDS: MINERAL OIL/PET HY-PHL TOPICAL OINTMENT 454 GM JAR TP SCH ×2 (10:42→21:20)
[2019-12-09] MEDS ORDERED: PT OWN MED DRAWER 7, Y5N ONE ×2 (10:44→12:51)
--- NOTE | 2019-12-09 12:10 | PN ---
Progress Note, Physician History of Present Illness: stable no new issues - Current Medication List Current Medications: Active Medications Acetaminophen (Tylenol -) 325 mg PO Q4H PRN PRN Reason: PAIN 1-3 Amino Acids (Prosource No Carb Liquid Pkt) 30 ml PO BID@0800,1730 [facility] Last Admin: 12/09/19 07:46 Dose: 30 ml Documented by: Ascorbic Acid (Vitamin C -) 250 mg PO BID [facility] Last Admin: 12/09/19 10:41 Dose: 250 mg Documented by: Budesonide/Formoterol Fumarate (Symbicort 80/4.5mcg -) 2 puff IH BID [facility] Last Admin: 12/09/19 10:42 Dose: 2 puff Documented by: Emollient Ointment (Aquaphor -) 1 applic TP BID [facility] Last Admin: 12/09/19 10:42 Dose: 1 applic Documented by: Famotidine (Pepcid -) 20 mg PO DAILY [facility] Last Admin: 12/09/19 10:41 Dose: 20 mg Documented by: Finasteride (Proscar -) 5 mg PO DAILY [facility] Last Admin: 12/09/19 10:41 Dose: 5 mg Documented by: Hydrochlorothiazide (Hctz -) 12.5 mg PO DAILY [facility] Last Admin: 12/09/19 10:41 Dose: 12.5 mg Documented by: Piperacillin Sod/Tazobactam (Sod 3.375 gm/ Dextrose) 50 mls @ 100 mls/hr IVPB Q8H-IV [facility]; Protocol Last Admin: 12/09/19 10:40 Dose: 100 mls/hr Documented by: Famotidine/Sodium Chloride (Pepcid 20 Mg Premixed Ivpb -) 20 mg in 50 mls @ 100 mls/hr IVPB BID [facility] Last Admin: 12/09/19 10:41 Dose: 100 mls/hr Documented by: Lactobacillus Acidophilus (Bacid -) 1 tab PO DAILY [facility] Last Admin: 12/09/19 10:41 Dose: 1 tab Documented by: Metoprolol Succinate (Toprol Xl -) 50 mg PO DAILY [facility] Last Admin: 12/09/19 10:45 Dose: 50 mg Documented by: Multivitamins/Minerals (Certavite-Antioxidant Liquid) 15 ml PO DAILY [facility] Pantoprazole Sodium (Protonix -) 40 mg PO DAILY [facility] Last Admin: 12/09/19 10:41 Dose: 40 mg Documented by: Phenytoin Sodium (Dilantin -) 500 mg PO HS [facility] Last Admin: 12/08/19 21:26 Dose: 500 mg Documented by: Senna/Docusate Sodium (Pericolace -) 2 tablet PO BID PRN PRN Reason: CONSTIPATION Tamsulosin HCl (Flomax -) 0.4 mg PO DAILY@0830 [facility] Last Admin: 12/09/19 07:46 Dose: 0.4 mg Documented by: - Objective Vital Signs: Vital Signs Temperature 97.8 F 12/09/19 06:00 Pulse Rate 96 H 12/09/19 06:00 Respiratory Rate 20 12/09/19 06:00 Blood Pressure 140/79 12/09/19 06:00 O2 Sat by Pulse Oximetry (%) 96 12/09/19 06:00 Constitutional: Yes: No Distress, Calm Cardiovascular: Yes: S1, S2 Respiratory: Yes: Regular, CTA Bilaterally Gastrointestinal: Yes: Normal Bowel Sounds, Soft Musculoskeletal: Yes: WNL Extremities: Yes: Other Neurological: Yes: Alert, Oriented Psychiatric: Yes: Alert, Oriented Labs: CBC, BMP 12/09/19 05:40 12/09/19 05:40 INR, PTT INR 1.28 (0.83-1.09) H 11/30/19 05:25 Assessment/Plan Problem List - Problems (1) Acute blood loss anemia Code(s): D62 - ACUTE POSTHEMORRHAGIC ANEMIA (2) Infection of prosthetic left knee joint Code(s): T84.54XA - INFECT/INFLM REACTION DUE TO INTERNAL LEFT KNEE PROSTH, INIT (3) Left leg DVT Code(s): I82.402 - ACUTE EMBOLISM AND THOMBOS UNSP DEEP VEINS OF L LOW EXTREM (4) Seizure disorder Code(s): G40.909 - EPILEPSY, UNSP, NOT INTRACTABLE, WITHOUT STATUS EPILEPTICUS (5) Anemia Code(s): D64.9 - ANEMIA, UNSPECIFIED (6) BPH (benign prostatic hyperplasia) Code(s): N40.0 - BENIGN PROSTATIC HYPERPLASIA WITHOUT LOWER URINRY TRACT SYMP (7) Hypercholesteremia Code(s): E78.00 - PURE HYPERCHOLESTEROLEMIA, UNSPECIFIED (8) Osteoarthritis of left knee Code(s): M17.12 - UNILATERAL PRIMARY OSTEOARTHRITIS, LEFT KNEE Assessment/Plan Lt knee prosthesis infection s/p hardware removal s/p washout/I+D/spacer POD #1 LLE DVT -- continue Zos[facility] complete the course
--- NOTE | 2019-12-09 12:17 | PN ---
Progress Note (short form) - Note Progress Note: cc: chest pain s: chest/R side pain resolved. no dyspnea, palps, dizziness, dyspnea Current Medications Generic Name Dose Route Start Last Admin Trade Name Freq PRN Reason Stop Dose Admin Acetaminophen 325 mg 12/08/19 14:51 Tylenol - PO Q4H PRN PAIN 1-3 Amino Acids 30 ml 12/08/19 17:30 12/09/19 07:46 Prosource No Carb Liquid Pkt PO 30 ml BID@0800,1730 [facility] Administration Ascorbic Acid 250 mg 12/08/19 22:00 12/09/19 10:41 Vitamin C - PO 250 mg BID [facility] Administration Budesonide/Formoterol Fumarate 2 puff 12/04/19 10:00 12/09/19 10:42 Symbicort 80/4.5mcg - IH 2 puff BID [facility] Administration Emollient Ointment 1 applic 12/06/19 22:00 12/09/19 10:42 Aquaphor - TP 1 applic BID [facility] Administration Famotidine 40 mg 12/09/19 12:12 Pepcid - PO DAILY [facility]NA[facility] Finasteride 5 mg 12/04/19 10:00 12/09/19 10:41 Proscar - PO 5 mg DAILY [facility] Administration Hydrochlorothiazide 12.5 mg 12/03/19 10:00 12/09/19 10:41 Hctz - PO 12.5 mg DAILY [facility] Administration Piperacillin Sod/Tazobactam 50 mls @ 100 mls/hr 12/04/19 10:00 12/09/19 10:40 Sod 3.375 gm/ Dextrose IVPB 100 mls/hr Q8H-IV [facility] Administration Protocol Famotidine/Sodium Chloride 20 mg in 50 mls @ 100 mls/hr 12/08/19 22:00 12/09/19 10:41 Pepcid 20 Mg Premixed Ivpb - IVPB 100 mls/hr BID [facility] Administration Lactobacillus Acidophilus 1 tab 12/04/19 10:00 12/09/19 10:41 Bacid - PO 1 tab DAILY [facility] Administration Metoprolol Succinate 50 mg 12/04/19 10:00 12/09/19 10:45 Toprol Xl - PO 50 mg DAILY [facility] Administration Multivitamins/Minerals 15 ml 12/09/19 10:00 Certavite-Antioxidant Liquid PO DAILY [facility] Pantoprazole Sodium 40 mg 12/04/19 10:00 12/09/19 10:41 Protonix - PO 40 mg DAILY [facility] Administration Phenytoin Sodium 500 mg 12/04/19 22:00 12/08/19 21:26 Dilantin - PO 500 mg HS [facility] Administration Senna/Docusate Sodium 2 tablet 12/05/19 11:53 Pericolace - PO BID PRN CONSTIPATION Tamsulosin HCl 0.4 mg 12/04/19 08:30 12/09/19 07:46 Flomax - PO 0.4 mg DAILY@0830 [facility] Administration Vital Signs Period Temp Pulse Resp BP Sys/Gee Pulse Ox Last 24 Hr 97.8 F-100.2 F 93-103 20-20 111-141/66-79 93-97 Constitutional: Yes: No Distress, Calm Eyes: Yes: Conjunctiva Clear, EOM Intact HENT: Yes: Atraumatic, Normocephalic Neck: Yes: Supple, Trachea Midline Respiratory: Yes: Regular, CTA Bilaterally Gastrointestinal: Yes: Normal Bowel Sounds, Soft Cardiovascular: Yes: Regular Rate and Rhythm JVD: No Carotid Bruit: No PMI: Non-Displaced Heart Sounds: Yes: S1, S2 Murmur: No: Systolic Murmur Musculoskeletal: No: Back Pain Extremities: No: Cold Edema: No Integumentary: No: Jaundice Neurological: Yes: Alert, Oriented Psychiatric: No: Agitated Assessment/Plan EKG: sinus tach, prolonged QTc, new TWI V2-3 tele: sinus 69M h/o HTN, HLD, h/o DVT with infected TKR prosthesis with chest pain chest pain - atypical symptoms with pain in R lower chest after eating, likely GI - trop neg x 2, EKG with new TWI - tele unremarkable - resolved, unlikely ACS hx DVT - anticoagulation has been held post op - manage per primary HTN - cont current meds s/p L TKR with prosthetic infection - s/p removal of prothesis and placement of antibiotic spacer 11/17, evacuation of hematoma and revision of spacer on 11/27 - manage per ortho anemia - 04/19 blood loss - holding ac
[2019-12-09] MEDS: MULTIVIT-MINERALS ORAL LIQUID PO SCH (12:53)
--- NOTE | 2019-12-09 13:55 | EKG ---
Test Reason : Blood Pressure : / mmHG Vent. Rate : 101 BPM Atrial Rate : 101 BPM P-R Int : 210 ms QRS Dur : 108 ms QT Int : 362 ms P-R-T Axes : 060 -43 012 degrees QTc Int : 469 ms SINUS TACHYCARDIA WITH 1ST DEGREE A-V BLOCK LEFT AXIS DEVIATION SEPTAL INFARCT (CITED ON OR BEFORE 26-JUN-2018) ABNORMAL ECG WHEN COMPARED WITH ECG OF 08-DEC-2019 10:48, T WAVE INVERSION NO LONGER EVIDENT IN ANTERIOR LEADS QT HAS SHORTENED Confirmed by Clem Funes ([id number]) on 12/09/2019 1:55:05 PM Referred By: Jonathon ODOM Confirmed By:Clem Funes
--- NOTE | 2019-12-09 16:04 | PN ---
Physical Exam: SUBJECTIVE: Patient seen and examined. No acute telemetry events overnight. Pt seen sitting at edge of bed. Pain rated 4/10. No complains of chest discomfort today. Denies fevers, chills, n/v. Admits to loose bowel movements, but less compared to yesterday. OBJECTIVE: Vital Signs Period Temp Pulse Resp BP Sys/Gee Pulse Ox Last 24 Hr 97.8 F-100.2 F 93-103 20-20 110-141/66-79 93-100 GENERAL: Awake and alert, not in acute distress. HEENT: NCAT, EOMI, moist mucus membranes. CARDIAC: regular rate and rhythm. S1, S2 present. No murmurs. RESPIRATORY: CTA b/l, no wheezes. ABDOMEN: Obese, non-distended, non-tender to palpation. Normoactive bowel sounds. EXTREMITIES: LLE bandaged and immobilized. Clean, dry bandages. NEUROLOGICAL: Sensation and movement intact. Moves toes spontaneously. CBC, BMP 12/09/19 05:40 12/09/19 05:40 Active Medications Acetaminophen (Tylenol -) 325 mg PO Q4H PRN PRN Reason: PAIN 1-3 Amino Acids (Prosource No Carb Liquid Pkt) 30 ml PO BID@0800,1730 [facility] Last Admin: 12/09/19 07:46 Dose: 30 ml Documented by: Ascorbic Acid (Vitamin C -) 250 mg PO BID [facility] Last Admin: 12/09/19 10:41 Dose: 250 mg Documented by: Budesonide/Formoterol Fumarate (Symbicort 80/4.5mcg -) 2 puff IH BID [facility] Last Admin: 12/09/19 10:42 Dose: 2 puff Documented by: Emollient Ointment (Aquaphor -) 1 applic TP BID [facility] Last Admin: 12/09/19 10:42 Dose: 1 applic Documented by: Famotidine (Pepcid -) 40 mg PO DAILY [facility] Finasteride (Proscar -) 5 mg PO DAILY [facility] Last Admin: 12/09/19 10:41 Dose: 5 mg Documented by: Hydrochlorothiazide (Hctz -) 12.5 mg PO DAILY [facility] Last Admin: 12/09/19 10:41 Dose: 12.5 mg Documented by: Piperacillin Sod/Tazobactam (Sod 3.375 gm/ Dextrose) 50 mls @ 100 mls/hr IVPB Q8H-IV [facility]; Protocol Last Admin: 12/09/19 10:40 Dose: 100 mls/hr Documented by: Lactobacillus Acidophilus (Bacid -) 1 tab PO DAILY [facility] Last Admin: 12/09/19 10:41 Dose: 1 tab Documented by: Metoprolol Succinate (Toprol Xl -) 50 mg PO DAILY [facility] Last Admin: 12/09/19 10:45 Dose: 50 mg Documented by: Multivitamins/Minerals (Certavite-Antioxidant Liquid) 15 ml PO DAILY [facility] Last Admin: 12/09/19 12:53 Dose: 15 ml Documented by: Pantoprazole Sodium (Protonix -) 40 mg PO DAILY [facility] Last Admin: 12/09/19 10:41 Dose: 40 mg Documented by: Phenytoin Sodium (Dilantin -) 500 mg PO HS [facility] Last Admin: 12/08/19 21:26 Dose: 500 mg Documented by: Senna/Docusate Sodium (Pericolace -) 2 tablet PO BID PRN PRN Reason: CONSTIPATION Tamsulosin HCl (Flomax -) 0.4 mg PO DAILY@0830 [facility] Last Admin: 12/09/19 07:46 Dose: 0.4 mg Documented by: ASSESSMENT/PLAN: 68 year old M PMH L TKR 2019, DVT 2017 (on coumadin s/p IVC filter), HTN, hypercholesterolemia, GERD, seizure disorder, BPH, OA who presented with worsening L knee pain and swelling with drainage for several weeks. Pt admitted for infected L knee. He is s/p I&D of L knee, L TKA hardware removal, tibial tubercle osteotomy, and placement of L knee abx spacer on 11/18/2019. S/p I&D and exchange of abx spacer on 11/27. Chest discomfort, atypical presentation. Likely GI in nature -Cardio consulted - trop negative x2 - New T wave inversions found in EKG -c/w pepcid, protonix L infected periprosthetic knee - will c/w Zosyn, started 11/20/2019. Today is day 20. -PICC placement tomorrow w/CXR for line placement confirmation prior to discharge -c/w antibiotics for total 6 weeks - Ortho consulted. - will c/w PT - c/w pain control w/ oxycodone 5mg q6H, acetaminophen 325 PRN - c/w symbicort - c/w probiotics Sacral ulcer -c/w aquaphor - continue to monitor Anemia, resolved - f/u CBC Seizure disorder -c/w dilantin 500 qHS H/o DVT - IVC filter on 06/2018. No need to resume AC. HTN, Hypercholesterolemia - c/w metoprolol succinate 50 qD, HCTZ 12.5mg qD BPH -c/w home tamsulosin, finasteride FEN - No standing fluids - Monitor and replete electrolytes - Regular diet Ppx - DVT: SCD's on R leg - GI: Protonix Dispo: Continue to monitor in tele. PICC tomorrow. Possible DC to SNF Visit type - Emergency Visit Emergency Visit: Yes ED Registration Date: 11/17/19 Care time: The patient presented to the Emergency Department on the above date and was hospitalized for further evaluation of their emergent condition. - New Patient This patient is new to me today: No - Critical Care Critical Care patient: No - Medication Review Med list reviewed for High Risk Meds patients 65 and older: Yes ATTENDING PHYSICIAN STATEMENT I saw and evaluated the patient. I reviewed the resident's note and discussed the case with the resident. I agree with the resident's findings and plan as documented. SUBJECTIVE: OBJECTIVE: ASSESSMENT AND PLAN:
--- NOTE | 2019-12-09 18:15 | PN ---
Teaching Attending Note Name of Resident: Dilcia Gonzalez ATTENDING PHYSICIAN STATEMENT I saw and evaluated the patient. I reviewed the resident's note and discussed the case with the resident. I agree with the resident's findings and plan as documented. SUBJECTIVE: OBJECTIVE: Vital Signs Temperature 98.7 F 12/09/19 14:05 Pulse Rate 101 H 12/09/19 14:05 Respiratory Rate 20 12/09/19 14:05 Blood Pressure 110/77 12/09/19 14:05 O2 Sat by Pulse Oximetry (%) 100 12/09/19 10:00 PE;per resident's note LLE in a mobilizer since the knee replacement last year. CBCD WBC 7.3 K/mm3 (4.0-10.0) 12/09/19 05:40 RBC 3.05 M/mm3 (4.00-5.60) L 12/09/19 05:40 Hgb 9.8 GM/dL (11.7-16.9) L 12/09/19 05:40 Hct 29.1 % (35.4-49) L 12/09/19 05:40 MCV 95.6 fl (80-96) 12/09/19 05:40 MCHC 33.5 g/dl (32.0-35.9) 12/09/19 05:40 RDW 18.9 % (11.9-15.9) H 12/09/19 05:40 Plt Count 230 K/MM3 (134-434) 12/09/19 05:40 MPV 7.6 fl (7.5-11.1) 12/09/19 05:40 CMP Sodium 138 mmol/L (136-145) 12/09/19 05:40 Potassium 4.1 mmol/L (3.5-5.1) 12/09/19 05:40 Chloride 104 mmol/L (98-107) 12/09/19 05:40 Carbon Dioxide 29 mmol/L (21-32) 12/09/19 05:40 Anion Gap 5 MMOL/L (8-16) L 12/09/19 05:40 BUN 14.3 mg/dL (7-18) 12/09/19 05:40 Creatinine 0.8 mg/dL (0.55-1.3) 12/09/19 05:40 Random Glucose 92 mg/dL (74-106) 12/09/19 05:40 Calcium 7.8 mg/dL (8.5-10.1) L 12/09/19 05:40 Total Bilirubin 0.3 mg/dL (0.2-1) 12/08/19 11:23 AST 48 U/L (15-37) H 12/08/19 11:23 ALT 74 U/L (13-61) H 12/08/19 11:23 Alkaline Phosphatase 214 U/L (45-117) H 12/08/19 11:23 Total Protein 6.4 g/dl (6.4-8.2) 12/08/19 11:23 Albumin 1.8 g/dl (3.4-5.0) L 12/08/19 11:23 CARDIAC ENZYMES Creatine Kinase 51 U/L (26-308) 12/08/19 11:23 Troponin I < 0.02 ng/ml (0.00-0.05) 12/09/19 05:40 Current Medications Generic Name Dose Route Start Last Admin Trade Name [place]ine PRN Reason Stop Dose Admin Acetaminophen 325 mg 12/08/19 14:51 Tylenol - PO Q4H PRN PAIN 1-3 Amino Acids 30 ml 12/08/19 17:30 12/09/19 16:44 Prosource No Carb Liquid Pkt PO 30 ml BID@0800,1730 [facility] Administration Ascorbic Acid 250 mg 12/08/19 22:00 12/09/19 10:41 Vitamin C - PO 250 mg BID [facility] Administration Budesonide/Formoterol Fumarate 2 puff 12/04/19 10:00 12/09/19 10:42 Symbicort 80/4.5mcg - IH 2 puff BID [facility] Administration Emollient Ointment 1 applic 12/06/19 22:00 12/09/19 10:42 Aquaphor - TP 1 applic BID [facility] Administration Famotidine 40 mg 12/09/19 12:12 Pepcid - PO DAILY [facility] Finasteride 5 mg 12/04/19 10:00 12/09/19 10:41 Proscar - PO 5 mg DAILY [facility] Administration Hydrochlorothiazide 12.5 mg 12/03/19 10:00 12/09/19 10:41 Hctz - PO 12.5 mg DAILY [facility] Administration Piperacillin Sod/Tazobactam 50 mls @ 100 mls/hr 12/04/19 10:00 12/09/19 17:04 Sod 3.375 gm/ Dextrose IVPB 100 mls/hr Q8H-IV [facility] Administration Protocol Lactobacillus Acidophilus 1 tab 12/04/19 10:00 12/09/19 10:41 Bacid - PO 1 tab DAILY [facility] Administration Metoprolol Succinate 50 mg 12/04/19 10:00 12/09/19 10:45 Toprol Xl - PO 50 mg DAILY [facility] Administration Multivitamins/Minerals 15 ml 12/09/19 10:00 12/09/19 12:53 Certavite-Antioxidant Liquid PO 15 ml DAILY [facility] Administration Pantoprazole Sodium 40 mg 12/04/19 10:00 12/09/19 10:41 Protonix - PO 40 mg DAILY [facility] Administration Phenytoin Sodium 500 mg 12/04/19 22:00 12/08/19 21:26 Dilantin - PO 500 mg HS [facility] Administration Senna/Docusate Sodium 2 tablet 12/05/19 11:53 Pericolace - PO BID PRN CONSTIPATION Tamsulosin HCl 0.4 mg 12/04/19 08:30 12/09/19 07:46 Flomax - PO 0.4 mg DAILY@0830 [facility] Administration Home Medications Medication Instructions Recorded Phenytoin Sodium Extended 500 mg PO HS #90 capsule 07/15/18 Warfarin Na [Coumadin -] 3 mg PO HS 07/24/18 Amlodipine-Olmesartan 10-40 mg 1 tab PO DAILY 11/11/19 Enoxaparin [Lovenox -] 60 mg SQ Q12H 11/11/19 Finasteride [Proscar] 5 mg PO DAILY 11/11/19 Fluticasone/Vilanterol [Breo 1 each IH HS 11/11/19 Ellipta 100-25 Mcg INH] Hydrochlorothiazide [Hctz -] 12.5 mg PO DAILY 11/11/19 Metoprolol Succinate 50 mg PO DAILY 11/11/19 Tamsulosin HCl [Flomax] 0.4 mg PO DAILY 11/11/19 Tramadol HCl 50 mg PO TID 11/18/19 Famotidine [Pepcid -] 40 mg PO DAILY tablet 12/09/19 Mineral Oil/Pet Hy-Phl [Aquaphor -] 1 applic TP BID #1 jar 12/09/19 Piperacillin/Tazob 3.375 gm [Zosyn 3.375 gm IVPB Q8H 22 Days bag 12/09/19 3.375GM Ivpb (Pre-Docked)] oxyCODONE HCL [Roxicodone -] 5 mg PO Q4H PRN #30 tablet MDD 30 12/09/19 Microbiology 11/28/19 11:13 Knee - Left Gram Stain - Final 11/28/19 11:13 Knee - Left Wound Culture - Preliminary No growth. 11/18/19 18:31 Tissue-Other AFB Smear Concentration - Final 11/18/19 18:31 Tissue-Other Mycobacterial Culture - Preliminary 11/20/19 19:35 Blood - Peripheral Venous Blood Culture - Final NO GROWTH AFTER 5 DAYS INCUBATION 11/20/19 19:50 Blood - Peripheral Venous Blood Culture - Final NO GROWTH AFTER 5 DAYS INCUBATION 11/18/19 18:31 Tissue-Other Gram Stain - Final 11/18/19 18:31 Tissue-Other Tissue Culture - Final Proteus Mirabilis 11/18/19 18:31 Tissue-Other Anaerobic Culture - Final Prevotella Disiens 11/18/19 18:31 Tissue-Other LIDIA Preparation - Preliminary 11/18/19 18:31 Tissue-Other Fungal Culture - Preliminary 11/17/19 23:20 Blood - Peripheral Venous Blood Culture - Final NO GROWTH AFTER 5 DAYS INCUBATION 11/17/19 23:20 Blood - Peripheral Venous Blood Culture - Final NO GROWTH AFTER 5 DAYS INCUBATION 11/18/19 16:37 Knee - Left AFB Smear Concentration - Final 11/18/19 16:37 Knee - Left Mycobacterial Culture - Preliminary 11/21/19 06:00 Urine - Urine Clean Catch Urine Culture - Final NO GROWTH OBTAINED 11/18/19 16:37 Knee - Left Gram Stain - Final 11/18/19 16:37 Knee - Left Wound Culture - Final Proteus Mirabilis 11/17/19 23:20 Knee - Left Gram Stain - Final 11/17/19 23:20 Knee - Left Wound Culture - Final Serratia Marcescens Enterococcus Faecalis Proteus Mirabilis 11/18/19 19:51 Urine - Urine - Catheterized Urine Culture - Final NO GROWTH OBTAINED 11/18/19 16:37 Knee - Left LIDIA Preparation - Preliminary 11/18/19 16:37 Knee - Left Fungal Culture - Preliminary ASSESSMENT AND PLAN: This patient is a 68yom with Pmhx of Left TKR 2019, DVT 2016 (on coumadin s/p IVC filter by Dr Segundo Amaya in 06/2018), HTN, HLD, GERD, seizure disorder, BPH, OA who presented with pain in L knee and was found to have prosthetic infection , now s/p I&D, removal of prosthesis and Abx spaced on 11/17, then evacuation of hematoma. # L knee prosthesis infection : s/p I&D, removal of prosthesis and Abx spaced on 11/17, on IV zosyn continue will check with ID the duration of IV antibiotics # S/p L knee hematoma , s/p evacuation of hematoma and revision , no further bleeding, h/h stable 9.8 , drainage were removed by the surgical team, patient of Dr dangelo. will continue to monitor H/H, no Weight baring on LLE as per dr Dangelo # S/p acute blood loss anemia : stable now , no further bleed, # chronic L popletial DVT. s/p IVC filter 07/04 , as per dr amaya , no need for further Ac # H/o seizure DO continue dilantin # Urinary retention. resolved cont home finasteride and flomax # Mild transaminitis : possible due to Abx, continue to monitor SCD to R leg possible dc if stable
--- NOTE | 2019-12-09 19:13 | PN ---
Progress Note (short form) - Note Progress Note: 68M s/p I&D left knee, removal of infected left knee hardware, and placement of antibiotic spacer. Now in telemetry Feeling well Apyrexial Diarrhoea persists Stable general medical status Looks and feels well Hb and WCC normal Left knee: Dressing C/D/I. NVI. Drains removed on rounds today. 68M s/p I&D left knee, removal of infected left knee hardware, and placement of antibiotic spacer. -Pt. needs PICC line inserted w/chest x-ray for line placement confirmation prior to discharge. -Pain control. -DVT PPx: -Chemical: ASA 81mg PO BID x 6 weeks; recommend outpatient follow-up with hematology team for workup of undiagnosed coagulopathy. -Mechanical: BARB's, SCD's. -Incentive spirometry q15 min. -PT/OT/Rehab, OOB. -Strict NWB LLE. -Continue IV antibiotics as per Dr. Bangura (infectious disease team) -f/u AM labs. -Diet as tolerated. -Care per medical hospitalist, hematology, & ID teams. Will take down dressings and go ahead with wound inspection tomorrow if ok D/C to rehab -Discharge planning: rehab; IV antibiotics via PICC line; strict NWB LLE; will follow. Jonathan Langston MD (Orthopaedic Surgery).
[2019-12-09] MEDS: PHENYTOIN NA EXTENDED 100 MG CAPSULE (FP) PO SCH (21:18)
[2019-12-10] MEDS ORDERED: DEXTROSE 5%-WATER - 50 ML IVPB ONE ×3 (00:52→15:19)
[2019-12-10] MEDS ORDERED: PIPERACILLIN/TAZOBACTAM 3.375 GM VIAL IVPB ONE ×3 (00:52→15:19)
[2019-12-10] MEDS: PIPERACILLIN/TAZOB 3.375 GM 3.375 GM in DEXTROSE 5%-WATER - 50 ML IVPB SCH ×3 (01:14→17:17)
[2019-12-10 06:43] LABS: HEMATOCRIT 29.4 % (35.4-49); HEMOGLOBIN 9.8 GM/dL (11.7-16.9); MCH 31.2 pg (25.7-33.7); MCHC 33.2 g/dl (32.0-35.9); MEAN CELL VOLUME 93.8 fl (80-96); MEAN PLT VOLUME 7.3 fl (7.5-11.1); PLATELET COUNT 245 K/MM3 (134-434); RBC 3.13 M/mm3 (4.00-5.60); RDW 18.4 % (11.9-15.9); WHITE BLOOD COUNT 6.7 K/mm3 (4.0-10.0)
[2019-12-10 07:50] LABS: ALBUMIN 1.8 g/dl (3.4-5.0); TOT PROT 6.4 g/dl (6.4-8.2)
[2019-12-10 07:52] LABS: BILIRUBIN,DIRECT 0.3 mg/dL (0.0-0.2)
[2019-12-10 07:55] LABS: BILIRUBIN,TOTAL 0.4 mg/dL (0.2-1)
--- NOTE | 2019-12-10 07:57 | DS ---
Physical Exam: SUBJECTIVE: Patient seen and examined OBJECTIVE: Vital Signs Period Temp Pulse Resp BP Sys/Gee Pulse Ox Last 24 Hr 97.8 F-99.3 F 96-102 17-20 110-139/66-77 94-100 PHYSICAL EXAM LABS Laboratory Results - last 24 hr 12/08/19 12/09/19 12/10/19 13:45 05:40 05:46 WBC 6.7 RBC 3.13 L Hgb 9.8 L Hct 29.4 L MCV 93.8 MCH 31.2 MCHC 33.2 RDW 18.4 H Plt Count 245 MPV 7.3 L Sodium 138 Potassium 4.1 Chloride 104 Carbon Dioxide 29 Anion Gap 5 L BUN 14.3 Creatinine 0.8 Est GFR (CKD-EPI)AfAm 104.17 Est GFR (CKD-EPI)NonAf 89.88 Random Glucose 92 Calcium 7.8 L Total Bilirubin Direct Bilirubin AST ALT Alkaline Phosphatase Troponin I < 0.02 Total Protein Albumin COVID-19 ([facility]) Not detected 12/10/19 05:46 WBC RBC Hgb Hct MCV MCH MCHC RDW Plt Count MPV Sodium Potassium Chloride Carbon Dioxide Anion Gap BUN Creatinine Est GFR (CKD-EPI)AfAm Est GFR (CKD-EPI)NonAf Random Glucose Calcium Total Bilirubin 0.4 Direct Bilirubin 0.3 H AST 54 H ALT 79 H Alkaline Phosphatase 217 H Troponin I Total Protein 6.4 Albumin 1.8 L COVID-19 ([facility]) HOSPITAL COURSE: Date of Admission:11/17/19 Date of Discharge: 12/10/19 Minutes to complete discharge: 36 Discharge Summary Problems reviewed: Yes Reason For Visit: POSTOPERATIVE COMPLICATION, DEEP VEIN THROMBOSIS Current Active Problems Acute blood loss anemia (Acute) Encounter for screening laboratory testing for COVID-19 virus (Acute) Infection of prosthetic left knee joint (Acute) Left leg DVT (Acute) Post-operative complication (Acute) Seizure disorder (Acute) Condition: Stable - Instructions Diet, Activity, Other Instructions: Your visit: You were admitted to the hospital for infected left knee. We did imaging of your chest and knee. You had no concerning findings in your chest. However, you had some swelling in your left knee. You were found to have bacteria growing in your knee. You had a surgery to remove the hardware, given pain medication and you were placed on antibiotics with improvement of your symptoms. You will need long-term antibiotics through a PICC line. You will need to have it removed after your completion of your antibiotics. Medications changes: -Please continue to take Zosyn through your PICC line for the next 22 days for a total of 6 weeks of antibiotics. -You may take oxycodone 5 mg every 4 hours as needed. -Continue to take all other home medications as prescribed. Follow up: - Please follow-up with your orthopedic surgeon, Dr. Langston, in 1 week. -Please follow up with your irrigator sprinkling system, Dr. José, in 1 week. You will need to have your clotting disorder assessed. -Please follow up with your infectious disease doctor, Dr. Bangura, in 1 week. - Please follow up with the interventional radiologist, Dr. Morris, in 22 days to remove your PICC line after the completion of your antibiotics. - Visit with your Primary Care Provider in 2 weeks. If you do not have a primary care provider you may make an appointment with Dr. Gonzalez at the [facility] located at [address] [place] [address] ([phone]). Additional Instructions: -You are being discharged to your a senior care facility. -Please return to the Emergency Department if you experience worsening pain, fevers, chills, shortness of breath, or chest pain, or if you experience any worsening, new or concerning symptoms. Referrals: [facility] [place] [Provider Group] - 2 Weeks (Please follow with Dr. Gonzalez) Alia Bangura MD [Staff Physician] - 1 Week Edilberto Morris MD [Staff Physician] - 12/23/19 (Please follow up to remove your PICC line 4-6 weeks after the completion of your antibiotics.) Ken José MD [Staff Physician] - 1 Week Jonathan Langston MD [Primary Care Provider] - 1 Week Disposition: LONGTERM FACILITY - Home Medications Comprehensive Discharge Medication List: Ambulatory Orders Phenytoin Sodium Extended 500 mg PO HS #90 capsule 07/15/18 Warfarin Na [Coumadin -] 3 mg PO HS 07/24/18 Amlodipine-Olmesartan 10-40 mg 1 tab PO DAILY 11/11/19 Enoxaparin [Lovenox -] 60 mg SQ Q12H 11/11/19 Finasteride [Proscar] 5 mg PO DAILY 11/11/19 Fluticasone/Vilanterol [Breo Ellipta 100-25 Mcg INH] 1 each IH HS 11/11/19 Hydrochlorothiazide [Hctz -] 12.5 mg PO DAILY 11/11/19 Metoprolol Succinate 50 mg PO DAILY 11/11/19 Tamsulosin HCl [Flomax] 0.4 mg PO DAILY 11/11/19 Tramadol HCl 50 mg PO TID 11/18/19 Famotidine [Pepcid -] 40 mg PO DAILY tablet 12/09/19 Mineral Oil/Pet Hy-Phl [Aquaphor -] 1 applic TP BID #1 jar 12/09/19 Piperacillin/Tazob 3.375 gm [Zosyn 3.375GM Ivpb (Pre-Docked)] 3.375 gm IVPB Q8H 22 Days bag 12/09/19 oxyCODONE HCL [Roxicodone -] 5 mg PO Q4H PRN #30 tablet MDD 30 12/09/19 - Discharge Referral Referred to [facility] No ATTENDING PHYSICIAN STATEMENT I saw and evaluated the patient. I reviewed the resident's note and discussed the case with the resident. I agree with the resident's findings and plan as documented. SUBJECTIVE: OBJECTIVE: ASSESSMENT AND PLAN:
[2019-12-10] MEDS: TAMSULOSIN HCL 0.4 MG CAP PO SCH (08:12)
[2019-12-10] MEDS: AMINO ACIDS/PROTEIN HYDROLYS 30 ML LIQUID.PKT PO SCH ×2 (08:12→17:17)
[2019-12-10] MEDS: FINASTERIDE 5 MG TABLET (FP) PO SCH (09:43)
[2019-12-10] MEDS: LACTOBACILLUS ACIDOPHILUS 1 TABLET PO SCH (09:43)
[2019-12-10] MEDS: HYDROCHLOROTHIAZIDE 12.5 MG CAPSULE (FP) PO SCH (09:43)
[2019-12-10] MEDS: MINERAL OIL/PET HY-PHL TOPICAL OINTMENT 454 GM JAR TP SCH (09:43)
[2019-12-10] MEDS: FAMOTIDINE 20 MG TABLET PO SCH (09:44)
[2019-12-10] MEDS: PANTOPRAZOLE 40 MG TABLET PO SCH (09:44)
[2019-12-10] MEDS: BUDESONIDE/FORMETEROL FUMARATE 80/4.5 mcg INHALER IH SCH ×2 (09:44→22:00)
[2019-12-10] MEDS: ASCORBIC ACID 250 MG TABLET (FP) PO SCH ×2 (09:44→21:59)
[2019-12-10] MEDS ORDERED: PT OWN MED DRAWER 7, Y5N ONE (09:46)
[2019-12-10] MEDS: MULTIVIT-MINERALS ORAL LIQUID PO SCH (09:47)
--- NOTE | 2019-12-10 10:21 | PN ---
Progress Note, Physician History of Present Illness: stable no new issues - Current Medication List Current Medications: Active Medications Acetaminophen (Tylenol -) 325 mg PO Q4H PRN PRN Reason: PAIN 1-3 Amino Acids (Prosource No Carb Liquid Pkt) 30 ml PO BID@0800,1730 [facility] Last Admin: 12/10/19 08:12 Dose: 30 ml Documented by: Ascorbic Acid (Vitamin C -) 250 mg PO BID [facility] Last Admin: 12/10/19 09:44 Dose: 250 mg Documented by: Budesonide/Formoterol Fumarate (Symbicort 80/4.5mcg -) 2 puff IH BID [facility] Last Admin: 12/10/19 09:44 Dose: 2 puff Documented by: Emollient Ointment (Aquaphor -) 1 applic TP BID [facility] Last Admin: 12/10/19 09:43 Dose: 1 applic Documented by: Famotidine (Pepcid -) 40 mg PO DAILY [facility] Last Admin: 12/10/19 09:44 Dose: 40 mg Documented by: Finasteride (Proscar -) 5 mg PO DAILY [facility] Last Admin: 12/10/19 09:43 Dose: 5 mg Documented by: Hydrochlorothiazide (Hctz -) 12.5 mg PO DAILY [facility] Last Admin: 12/10/19 09:43 Dose: 12.5 mg Documented by: Piperacillin Sod/Tazobactam (Sod 3.375 gm/ Dextrose) 50 mls @ 100 mls/hr IVPB Q8H-IV [facility]; Protocol Last Admin: 12/10/19 09:47 Dose: 100 mls/hr Documented by: Lactobacillus Acidophilus (Bacid -) 1 tab PO DAILY [facility] Last Admin: 12/10/19 09:43 Dose: 1 tab Documented by: Metoprolol Succinate (Toprol Xl -) 50 mg PO DAILY [facility] Last Admin: 12/10/19 09:43 Dose: 50 mg Documented by: Multivitamins/Minerals (Certavite-Antioxidant Liquid) 15 ml PO DAILY [facility] Last Admin: 12/10/19 09:47 Dose: 15 ml Documented by: Pantoprazole Sodium (Protonix -) 40 mg PO DAILY [facility] Last Admin: 12/10/19 09:44 Dose: 40 mg Documented by: Phenytoin Sodium (Dilantin -) 500 mg PO HS [facility] Last Admin: 12/09/19 21:18 Dose: 500 mg Documented by: Senna/Docusate Sodium (Pericolace -) 2 tablet PO BID PRN PRN Reason: CONSTIPATION Tamsulosin HCl (Flomax -) 0.4 mg PO DAILY@0830 [facility] Last Admin: 12/10/19 08:12 Dose: 0.4 mg Documented by: - Objective Vital Signs: Vital Signs Temperature 98.8 F 12/10/19 09:10 Pulse Rate 107 H 12/10/19 09:10 Respiratory Rate 17 12/10/19 09:10 Blood Pressure 129/68 12/10/19 09:10 O2 Sat by Pulse Oximetry (%) 97 12/10/19 09:10 Constitutional: Yes: No Distress, Calm Cardiovascular: Yes: S1, S2 Respiratory: Yes: Regular, CTA Bilaterally Gastrointestinal: Yes: Normal Bowel Sounds, Soft Musculoskeletal: Yes: WNL Extremities: Yes: WNL Neurological: Yes: Alert, Oriented Psychiatric: Yes: Alert, Oriented Labs: CBC, BMP 12/10/19 05:46 12/09/19 05:40 INR, PTT INR 1.28 (0.83-1.09) H 11/30/19 05:25 Assessment/Plan Problem List - Problems (1) Acute blood loss anemia Code(s): D62 - ACUTE POSTHEMORRHAGIC ANEMIA (2) Infection of prosthetic left knee joint Code(s): T84.54XA - INFECT/INFLM REACTION DUE TO INTERNAL LEFT KNEE PROSTH, INIT (3) Left leg DVT Code(s): I82.402 - ACUTE EMBOLISM AND THOMBOS UNSP DEEP VEINS OF L LOW EXTREM (4) Seizure disorder Code(s): G40.909 - EPILEPSY, UNSP, NOT INTRACTABLE, WITHOUT STATUS EPILEPTICUS (5) Anemia Code(s): D64.9 - ANEMIA, UNSPECIFIED (6) BPH (benign prostatic hyperplasia) Code(s): N40.0 - BENIGN PROSTATIC HYPERPLASIA WITHOUT LOWER URINRY TRACT SYMP (7) Hypercholesteremia Code(s): E78.00 - PURE HYPERCHOLESTEROLEMIA, UNSPECIFIED (8) Osteoarthritis of left knee Code(s): M17.12 - UNILATERAL PRIMARY OSTEOARTHRITIS, LEFT KNEE Assessment/Plan Lt knee prosthesis infection s/p hardware removal s/p washout/I+D/spacer POD #1 LLE DVT -- continue Zosyn complete the course i think patient has 22 to 24 days left
--- NOTE | 2019-12-10 11:06 | PN ---
Progress Note (short form) - Note Progress Note: cc: chest pain s: chest/R side pain resolved. no dyspnea, palps, dizziness, dyspnea Current Medications Generic Name Dose Route Start Last Admin Trade Name Freq PRN Reason Stop Dose Admin Acetaminophen 325 mg 12/08/19 14:51 Tylenol - PO Q4H PRN PAIN 1-3 Amino Acids 30 ml 12/08/19 17:30 12/10/19 08:12 Prosource No Carb Liquid Pkt PO 30 ml BID@0800,1730 [facility] Administration Ascorbic Acid 250 mg 12/08/19 22:00 12/10/19 09:44 Vitamin C - PO 250 mg BID [facility] Administration Budesonide/Formoterol Fumarate 2 puff 12/04/19 10:00 12/10/19 09:44 Symbicort 80/4.5mcg - IH 2 puff BID [facility] Administration Emollient Ointment 1 applic 12/06/19 22:00 12/10/19 09:43 Aquaphor - TP 1 applic BID [facility] Administration Famotidine 40 mg 12/09/19 12:12 12/10/19 09:44 Pepcid - PO 40 mg DAILY [facility] Administration Finasteride 5 mg 12/04/19 10:00 12/10/19 09:43 Proscar - PO 5 mg DAILY [facility] Administration Hydrochlorothiazide 12.5 mg 12/03/19 10:00 12/10/19 09:43 Hctz - PO 12.5 mg DAILY [facility] Administration Piperacillin Sod/Tazobactam 50 mls @ 100 mls/hr 12/04/19 10:00 12/10/19 09:47 Sod 3.375 gm/ Dextrose IVPB 100 mls/hr Q8H-IV [facility] Administration Protocol Lactobacillus Acidophilus 1 tab 12/04/19 10:00 12/10/19 09:43 Bacid - PO 1 tab DAILY [facility] Administration Metoprolol Succinate 50 mg 12/04/19 10:00 12/10/19 09:43 Toprol Xl - PO 50 mg DAILY [facility] Administration Multivitamins/Minerals 15 ml 12/09/19 10:00 12/10/19 09:47 Certavite-Antioxidant Liquid PO 15 ml DAILY [facility] Administration Pantoprazole Sodium 40 mg 12/04/19 10:00 12/10/19 09:44 Protonix - PO 40 mg DAILY [facility] Administration Phenytoin Sodium 500 mg 12/04/19 22:00 12/09/19 21:18 Dilantin - PO 500 mg HS [facility] Administration Senna/Docusate Sodium 2 tablet 12/05/19 11:53 Pericolace - PO BID PRN CONSTIPATION Tamsulosin HCl 0.4 mg 12/04/19 08:30 12/10/19 08:12 Flomax - PO 0.4 mg DAILY@0830 [facility] Administration Vital Signs Period Temp Pulse Resp BP Sys/Gee Pulse Ox Last 24 Hr 98.1 F-99.3 F 96-107 17- 110-132/66-77 94-97 Constitutional: Yes: No Distress, Calm Eyes: Yes: Conjunctiva Clear Respiratory: Yes: Regular, CTA Bilaterally Gastrointestinal: Yes: Normal Bowel Sounds, Soft Cardiovascular: Yes: Regular Rate and Rhythm JVD: No Carotid Bruit: No Heart Sounds: Yes: S1, S2 Murmur: No: Systolic Murmur Musculoskeletal: No: Back Pain Extremities: No: Cold Edema: No Integumentary: No: Jaundice Neurological: Yes: Alert, Oriented Psychiatric: No: Agitated CBC, BMP 12/10/19 05:46 12/09/19 05:40 Assessment/Plan EKG: sinus tach, prolonged QTc, new TWI V2-3 tele: sinus 69M h/o HTN, HLD, h/o DVT with infected TKR prosthesis with chest pain chest pain - atypical symptoms with pain in R lower chest after eating, likely GI - trop neg x 2, EKG with new TWI - tele unremarkable - resolved, unlikely ACS hx DVT - anticoagulation has been held post op - manage per primary HTN - cont current meds s/p L TKR with prosthetic infection - s/p removal of prothesis and placement of antibiotic spacer 11/17, evacuation of hematoma and revision of spacer on 11/27 - manage per ortho anemia - /2 blood loss - holding ac cardiac barrera stable for dc
--- NOTE | 2019-12-10 11:46 | PN.HO ---
Progress Note (short form) - Note Progress Note: 68M with L knee I&D after infected hardware c/b bleeding episodes. Patient was on coumadin for many years for a chronic DVT. Ortho is recommending ASA x 6 weeks for ppx. Patient is high risk for DVT 2/2 recent surgery and agree he should be on some kind of ppx. Would default choice of anticoagulation to Orthopedics since they have been managing his care post op. Patient can follow up with vascular surgery as outpatient for management of his chronic DVT. Heme to sign off. Please reconsult as needed.
--- NOTE | 2019-12-10 15:06 | PN ---
Physical Exam: SUBJECTIVE: Patient seen and examined. Stated that pain has improved. OBJECTIVE: Vital Signs Period Temp Pulse Resp BP Sys/Gee Pulse Ox Last 24 Hr 98.1 F-99.3 F 96-107 17-20 127-132/66-74 94-97 GENERAL: Awake and alert, not in acute distress. HEENT: NCAT, EOMI, moist mucus membranes. CARDIAC: regular rate and rhythm. S1, S2 present. No murmurs. RESPIRATORY: CTA b/l, no wheezes. ABDOMEN: Obese, non-distended, non-tender to palpation. Normoactive bowel sounds. EXTREMITIES: LLE bandaged and immobilized. Clean, dry bandages. NEUROLOGICAL: Sensation and movement intact. Moves toes spontaneously. CBC, BMP 12/10/19 05:46 12/09/19 05:40 Active Medications Acetaminophen (Tylenol -) 325 mg PO Q4H PRN PRN Reason: PAIN 1-3 Amino Acids (Prosource No Carb Liquid Pkt) 30 ml PO BID@0800,1730 [facility] Last Admin: 12/10/19 08:12 Dose: 30 ml Documented by: Ascorbic Acid (Vitamin C -) 250 mg PO BID [facility] Last Admin: 12/10/19 09:44 Dose: 250 mg Documented by: Budesonide/Formoterol Fumarate (Symbicort 80/4.5mcg -) 2 puff IH BID [facility] Last Admin: 12/10/19 09:44 Dose: 2 puff Documented by: Emollient Ointment (Aquaphor -) 1 applic TP BID [facility] Last Admin: 12/10/19 09:43 Dose: 1 applic Documented by: Famotidine (Pepcid -) 40 mg PO DAILY [facility] Last Admin: 12/10/19 09:44 Dose: 40 mg Documented by: Finasteride (Proscar -) 5 mg PO DAILY [facility] Last Admin: 12/10/19 09:43 Dose: 5 mg Documented by: Hydrochlorothiazide (Hctz -) 12.5 mg PO DAILY [facility] Last Admin: 12/10/19 09:43 Dose: 12.5 mg Documented by: Piperacillin Sod/Tazobactam (Sod 3.375 gm/ Dextrose) 50 mls @ 100 mls/hr IVPB Q8H-IV [facility]; Protocol Last Admin: 12/10/19 09:47 Dose: 100 mls/hr Documented by: Lactobacillus Acidophilus (Bacid -) 1 tab PO DAILY [facility] Last Admin: 12/10/19 09:43 Dose: 1 tab Documented by: Metoprolol Succinate (Toprol Xl -) 50 mg PO DAILY [facility] Last Admin: 12/10/19 09:43 Dose: 50 mg Documented by: Multivitamins/Minerals (Certavite-Antioxidant Liquid) 15 ml PO DAILY [facility] Last Admin: 12/10/19 09:47 Dose: 15 ml Documented by: Pantoprazole Sodium (Protonix -) 40 mg PO DAILY [facility] Last Admin: 12/10/19 09:44 Dose: 40 mg Documented by: Phenytoin Sodium (Dilantin -) 500 mg PO HS [facility] Last Admin: 12/09/19 21:18 Dose: 500 mg Documented by: Senna/Docusate Sodium (Pericolace -) 2 tablet PO BID PRN PRN Reason: CONSTIPATION Tamsulosin HCl (Flomax -) 0.4 mg PO DAILY@0830 [facility] Last Admin: 12/10/19 08:12 Dose: 0.4 mg Documented by: ASSESSMENT/PLAN: 68 year old M PMH L TKR 2019, DVT 2017 (on coumadin s/p IVC filter), HTN, hypercholesterolemia, GERD, seizure disorder, BPH, OA who presented with worsening L knee pain and swelling with drainage for several weeks. Pt admitted for infected L knee. He is s/p I&D of L knee, L TKA hardware removal, tibial tubercle osteotomy, and placement of L knee abx spacer on 11/18/2019. S/p I&D and exchange of abx spacer on 11/27. Chest discomfort, resolved - happened after eating meal. Likely GI etiology. Unlikely ACS -Cardio consulted. - trop negative x2 - New T wave inversions found in EKG -c/w pepcid, protonix L infected periprosthetic knee - will c/w Zosyn, started 11/20/2019. Today is day 21. -PICC placement tomorrow w/CXR for line placement confirmation prior to discharge -c/w antibiotics for total 6 weeks - Ortho consulted. -Discussed over phone. Will remove and replace dressing. -Will schedule for appointment at Dr. Langston's office - will c/w PT - c/w pain control w/ oxycodone 5mg q6H, acetaminophen 325 PRN - c/w symbicort - c/w probiotics Sacral ulcer -c/w aquaphor - continue to monitor Anemia, resolved - f/u CBC Seizure disorder -c/w dilantin 500 qHS H/o DVT - IVC filter on 06/2018. No need to resume AC as per Dr. Evans (vascular surgery) -Heme consulted. Recommended c/w prophylaxis. Will defer to choice of AC to orthopedics -pt is high risk for DVT secondary to recent surgery, however, pt had bleeding through surgical site during hospital course. - Hold AC for now. HTN - c/w home dose metoprolol succinate 50 qD, HCTZ 12.5mg qD BPH -c/w home tamsulosin, finasteride FEN - No standing fluids - Monitor and replete electrolytes - Regular diet Ppx - DVT: SCD's on R leg - GI: Protonix Dispo: Continue to monitor in tele. PICC tomorrow. Possible DC to SNF Visit type - Emergency Visit Emergency Visit: Yes ED Registration Date: 11/17/19 Care time: The patient presented to the Emergency Department on the above date and was hospitalized for further evaluation of their emergent condition. - New Patient This patient is new to me today: No - Critical Care Critical Care patient: No - Medication Review Med list reviewed for High Risk Meds patients 65 and older: Yes ATTENDING PHYSICIAN STATEMENT I saw and evaluated the patient. I reviewed the resident's note and discussed the case with the resident. I agree with the resident's findings and plan as documented. SUBJECTIVE: OBJECTIVE: ASSESSMENT AND PLAN:
--- NOTE | 2019-12-10 17:48 | PN ---
Teaching Attending Note Name of Resident: Dilcia Gonzalez ATTENDING PHYSICIAN STATEMENT I saw and evaluated the patient. I reviewed the resident's note and discussed the case with the resident. I agree with the resident's findings and plan as documented. SUBJECTIVE: Patient feels better with NAD OBJECTIVE: Vital Signs Temperature 98.5 F 12/10/19 17:37 Pulse Rate 98 H 12/10/19 17:37 Respiratory Rate 20 12/10/19 17:37 Blood Pressure 133/76 12/10/19 17:37 O2 Sat by Pulse Oximetry (%) 96 12/10/19 17:37 PE:per resident's note CBCD WBC 6.7 K/mm3 (4.0-10.0) 12/10/19 05:46 RBC 3.13 M/mm3 (4.00-5.60) L 12/10/19 05:46 Hgb 9.8 GM/dL (11.7-16.9) L 12/10/19 05:46 Hct 29.4 % (35.4-49) L 12/10/19 05:46 MCV 93.8 fl (80-96) 12/10/19 05:46 MCHC 33.2 g/dl (32.0-35.9) 12/10/19 05:46 RDW 18.4 % (11.9-15.9) H 12/10/19 05:46 Plt Count 245 K/MM3 (134-434) 12/10/19 05:46 MPV 7.3 fl (7.5-11.1) L 12/10/19 05:46 CMP Sodium 138 mmol/L (136-145) 12/09/19 05:40 Potassium 4.1 mmol/L (3.5-5.1) 12/09/19 05:40 Chloride 104 mmol/L (98-107) 12/09/19 05:40 Carbon Dioxide 29 mmol/L (21-32) 12/09/19 05:40 Anion Gap 5 MMOL/L (8-16) L 12/09/19 05:40 BUN 14.3 mg/dL (7-18) 12/09/19 05:40 Creatinine 0.8 mg/dL (0.55-1.3) 12/09/19 05:40 Random Glucose 92 mg/dL (74-106) 12/09/19 05:40 Calcium 7.8 mg/dL (8.5-10.1) L 12/09/19 05:40 Total Bilirubin 0.4 mg/dL (0.2-1) 12/10/19 05:46 AST 54 U/L (15-37) H 12/10/19 05:46 ALT 79 U/L (13-61) H 12/10/19 05:46 Alkaline Phosphatase 217 U/L (45-117) H 12/10/19 05:46 Total Protein 6.4 g/dl (6.4-8.2) 12/10/19 05:46 Albumin 1.8 g/dl (3.4-5.0) L 12/10/19 05:46 CARDIAC ENZYMES Creatine Kinase 51 U/L (26-308) 12/08/19 11:23 Troponin I < 0.02 ng/ml (0.00-0.05) 12/09/19 05:40 Current Medications Generic Name Dose Route Start Last Admin Trade Name Freq PRN Reason Stop Dose Admin Acetaminophen 325 mg 12/08/19 14:51 Tylenol - PO Q4H PRN PAIN 1-3 Amino Acids 30 ml 12/08/19 17:30 12/10/19 17:17 Prosource No Carb Liquid Pkt PO 30 ml BID@0800,1730 [facility] Administration Ascorbic Acid 250 mg 12/08/19 22:00 12/10/19 09:44 Vitamin C - PO 250 mg BID [facility] Administration Budesonide/Formoterol Fumarate 2 puff 12/04/19 10:00 12/10/19 09:44 Symbicort 80/4.5mcg - IH 2 puff BID [facility] Administration Emollient Ointment 1 applic 12/06/19 22:00 12/10/19 09:43 Aquaphor - TP 1 applic BID [facility] Administration Famotidine 40 mg 12/09/19 12:12 12/10/19 09:44 Pepcid - PO 40 mg DAILY [facility] Administration Finasteride 5 mg 12/04/19 10:00 12/10/19 09:43 Proscar - PO 5 mg DAILY [facility] Administration Hydrochlorothiazide 12.5 mg 12/03/19 10:00 12/10/19 09:43 Hctz - PO 12.5 mg DAILY [facility] Administration Piperacillin Sod/Tazobactam 50 mls @ 100 mls/hr 12/04/19 10:00 12/10/19 17:17 Sod 3.375 gm/ Dextrose IVPB 100 mls/hr Q8H-IV [facility] Administration Protocol Lactobacillus Acidophilus 1 tab 12/04/19 10:00 12/10/19 09:43 Bacid - PO 1 tab DAILY [facility] Administration Metoprolol Succinate 50 mg 12/04/19 10:00 12/10/19 09:43 Toprol Xl - PO 50 mg DAILY [facility] Administration Multivitamins/Minerals 15 ml 12/09/19 10:00 12/10/19 09:47 Certavite-Antioxidant Liquid PO 15 ml DAILY [facility] Administration Pantoprazole Sodium 40 mg 12/04/19 10:00 12/10/19 09:44 Protonix - PO 40 mg DAILY [facility] Administration Phenytoin Sodium 500 mg 12/04/19 22:00 12/09/19 21:18 Dilantin - PO 500 mg HS [facility] Administration Senna/Docusate Sodium 2 tablet 12/05/19 11:53 Pericolace - PO BID PRN [facility]ST[facility] Tamsulosin HCl 0.4 mg 12/04/19 08:30 12/10/19 08:12 Flomax - PO 0.4 mg DAILY@0830 [facility] Administration Home Medications Medication Instructions Recorded Phenytoin Sodium Extended 500 mg PO HS #90 capsule 07/15/18 Amlodipine-Olmesartan 10-40 mg 1 tab PO DAILY 11/11/19 Finasteride [Proscar] 5 mg PO DAILY 11/11/19 Fluticasone/Vilanterol [Breo 1 each IH HS 11/11/19 Ellipta 100-25 Mcg INH] Metoprolol Succinate 50 mg PO DAILY 11/11/19 Tamsulosin HCl [Flomax -] 0.4 mg PO DAILY 11/11/19 Piperacillin/Tazob 3.375 gm [Zosyn 3.375 gm IVPB Q8H 22 Days bag 12/09/19 3.375GM Ivpb (Pre-Docked)] Phenytoin Na Extended [Dilantin -] 500 mg PO HS capsule 12/10/19 Microbiology 11/28/19 11:13 Knee - Left Gram Stain - Final 11/28/19 11:13 Knee - Left Wound Culture - Preliminary No growth. 11/18/19 18:31 Tissue-Other AFB Smear Concentration - Final 11/18/19 18:31 Tissue-Other Mycobacterial Culture - Preliminary 11/20/19 19:35 Blood - Peripheral Venous Blood Culture - Final NO GROWTH AFTER 5 DAYS INCUBATION 11/20/19 19:50 Blood - Peripheral Venous Blood Culture - Final NO GROWTH AFTER 5 DAYS INCUBATION 11/18/19 18:31 Tissue-Other Gram Stain - Final 11/18/19 18:31 Tissue-Other Tissue Culture - Final Proteus Mirabilis 11/18/19 18:31 Tissue-Other Anaerobic Culture - Final Prevotella Disiens 11/18/19 18:31 Tissue-Other LIDIA Preparation - Preliminary 11/18/19 18:31 Tissue-Other Fungal Culture - Preliminary 11/17/19 23:20 Blood - Peripheral Venous Blood Culture - Final NO GROWTH AFTER 5 DAYS INCUBATION 11/17/19 23:20 Blood - Peripheral Venous Blood Culture - Final NO GROWTH AFTER 5 DAYS INCUBATION 11/18/19 16:37 Knee - Left AFB Smear Concentration - Final 11/18/19 16:37 Knee - Left Mycobacterial Culture - Preliminary 11/21/19 06:00 Urine - Urine Clean Catch Urine Culture - Final NO GROWTH OBTAINED 11/18/19 16:37 Knee - Left Gram Stain - Final 11/18/19 16:37 Knee - Left Wound Culture - Final Proteus Mirabilis 11/17/19 23:20 Knee - Left Gram Stain - Final 11/17/19 23:20 Knee - Left Wound Culture - Final Serratia Marcescens Enterococcus Faecalis Proteus Mirabilis 11/18/19 19:51 Urine - Urine - Catheterized Urine Culture - Final NO GROWTH OBTAINED 11/18/19 16:37 Knee - Left LIDIA Preparation - Preliminary 11/18/19 16:37 Knee - Left Fungal Culture - Preliminary ASSESSMENT AND PLAN: This patient is a 68yom with Pmhx of Left TKR 2019, DVT 2016 (on coumadin s/p IVC filter by Dr Segundo Amaya in 06/2018), HTN, HLD, GERD, seizure disorder, BPH, OA who presented with pain in L knee and was found to have prosthetic infection , now s/p I&D, removal of prosthesis and Abx spaced on 11/17, then evacuation of hematoma. # L knee prosthesis infection : s/p I&D, removal of prosthesis and Abx spaced on 11/17, on IV zosyn as per ID for 22 more days # S/p L knee hematoma , s/p evacuation of hematoma and revision , no further bleed, h/h stable 9.8 , drainage were removed by the surgical team, patient of Dr dangelo. will continue to monitor H/H, no Weight baring on LLE as per dr Dangelo. Patient was on coumadin for many years for a chronic DVT. Ortho is recommending ASA x 6 weeks for ppx. Patient is high risk for DVT with recent surgery and patient should be on some kind of ppx. as per ortho, patient has chronic DVT with IVC filter, full AC was discontinued by ortho ,and is recommended by ortho to have 6 weeks of aspirin 81mg bid and will default choice of anticoagulation to Orthopedics since they have been managing his post op care . Patient can follow up with vascular surgery as outpatient for management of his chronic DVT. repeat CBC and CMP this Saturday12/14/2019 # S/p acute blood loss anemia : stable now , no further bleed, # chronic L popletial DVT. s/p IVC filter 07/04 , as per dr amaya , no need for further Ac # H/o seizure DO continue dilantin # Urinary retention. resolved cont home finasteride and flomax # Mild transaminitis : possible due to Abx, continue to monitor , tylenol discontinued SCD to R leg dc patient to rehab Picc line
[2019-12-10] MEDS: PHENYTOIN NA EXTENDED 100 MG CAPSULE (FP) PO SCH (21:59)
[2019-12-11] MEDS ORDERED: PIPERACILLIN/TAZOBACTAM 3.375 GM VIAL IVPB ONE ×2 (01:05→09:22)
[2019-12-11] MEDS ORDERED: DEXTROSE 5%-WATER - 50 ML IVPB ONE ×2 (01:05→09:22)
[2019-12-11] MEDS: PIPERACILLIN/TAZOB 3.375 GM 3.375 GM in DEXTROSE 5%-WATER - 50 ML IVPB SCH ×3 (01:37→17:17)
--- NOTE | 2019-12-11 05:58 | PN ---
Progress Note, Physician Chief Complaint: denies CP/SOB/palps - Current Medication List Current Medications: Active Medications Acetaminophen (Tylenol -) 325 mg PO Q4H PRN PRN Reason: PAIN 1-3 Amino Acids (Prosource No Carb Liquid Pkt) 30 ml PO BID@0800,1730 [facility] Last Admin: 12/10/19 17:17 Dose: 30 ml Documented by: Ascorbic Acid (Vitamin C -) 250 mg PO BID [facility] Last Admin: 12/10/19 21:59 Dose: 250 mg Documented by: Budesonide/Formoterol Fumarate (Symbicort 80/4.5mcg -) 2 puff IH BID [facility] Last Admin: 12/10/19 22:00 Dose: 2 puff Documented by: Emollient Ointment (Aquaphor -) 1 applic TP BID [facility] Last Admin: 12/10/19 09:43 Dose: 1 applic Documented by: Famotidine (Pepcid -) 40 mg PO DAILY [facility] Last Admin: 12/10/19 09:44 Dose: 40 mg Documented by: Finasteride (Proscar -) 5 mg PO DAILY [facility] Last Admin: 12/10/19 09:43 Dose: 5 mg Documented by: Hydrochlorothiazide (Hctz -) 12.5 mg PO DAILY [facility] Last Admin: 12/10/19 09:43 Dose: 12.5 mg Documented by: Piperacillin Sod/Tazobactam (Sod 3.375 gm/ Dextrose) 50 mls @ 100 mls/hr IVPB Q8H-IV [facility]; Protocol Last Admin: 12/11/19 01:37 Dose: 100 mls/hr Documented by: Lactobacillus Acidophilus (Bacid -) 1 tab PO DAILY [facility] Last Admin: 12/10/19 09:43 Dose: 1 tab Documented by: Metoprolol Succinate (Toprol Xl -) 50 mg PO DAILY [facility] Last Admin: 12/10/19 09:43 Dose: 50 mg Documented by: Multivitamins/Minerals (Certavite-Antioxidant Liquid) 15 ml PO DAILY [facility] Last Admin: 12/10/19 09:47 Dose: 15 ml Documented by: Pantoprazole Sodium (Protonix -) 40 mg PO DAILY [facility] Last Admin: 12/10/19 09:44 Dose: 40 mg Documented by: Phenytoin Sodium (Dilantin -) 500 mg PO [facility] Last Admin: 12/10/19 21:59 Dose: 500 mg Documented by: Senna/Docusate Sodium (Pericolace -) 2 tablet PO BID PRN PRN Reason: CONSTIPATION Tamsulosin HCl (Flomax -) 0.4 mg PO DAILY@0830 [facility] Last Admin: 12/10/19 08:12 Dose: 0.4 mg Documented by: - Objective Vital Signs: Vital Signs Temperature 98.2 F 12/11/19 05:08 Pulse Rate 98 H 12/11/19 05:08 Respiratory Rate 12/11/19 05:08 Blood Pressure 130/70 12/11/19 05:08 O2 Sat by Pulse Oximetry (%) 95 12/11/19 05:08 Constitutional: Yes: No Distress, Calm Neck: Yes: Supple, Trachea Midline Cardiovascular: Yes: Regular Rate and Rhythm Respiratory: Yes: CTA Bilaterally Gastrointestinal: Yes: Soft (nt) Edema: No Neurological: Yes: Alert Labs: CBC, BMP 12/10/19 05:46 12/09/19 05:40 INR, PTT INR 1.28 (0.83-1.09) H 11/30/19 05:25 Microbiology 11/20/19 19:50 Blood - Peripheral Venous Blood Culture - Final NO GROWTH AFTER 5 DAYS INCUBATION 11/20/19 19:35 Blood - Peripheral Venous Blood Culture - Final NO GROWTH AFTER 5 DAYS INCUBATION Laboratory Tests 11/30/19 12/08/19 12/09/19 05:25 11:23 05:40 WBC Hgb Plt Count INR 1.28 H Troponin I < 0.02 < 0.02 12/11/19 07:45 WBC 5.5 Hgb 10.7 L Plt Count 213 INR Troponin I - ....Imaging EKG: Image Reviewed (TELE: NSR) Assessment/Plan Assessment/Plan tele: sinus, no V ectopy 69M h/o HTN, HLD, h/o DVT with infected TKR prosthesis with chest pain chest pain: completely resolved - atypical symptoms with pain in R lower chest after eating, likely GI - trop neg x 2, EKG with new TWI which are nonspecific. - tele unremarkable - unlikely ACS -Recommend outpatient f/u with cardiology. hx DVT - anticoagulation has been held post op - manage per primary, resume when able from surgical standpoint. HTN: - cont current meds s/p L TKR with prosthetic infection: - s/p removal of prothesis and placement of antibiotic spacer 11/17, evacuation of hematoma and revision of spacer on 11/27 - manage per ortho anemia: - 2/2 blood loss - holding ac, resume as per primary team and ortho Prolonged QT: -Resolved on f/u ECG -Tele without sig V ectopy -Lytes ok; enzymes negative -avoid QT prolonging meds -Recommend outpatient f/u with Cardiology for possible extended outpatient monitor and echo if one has not recently been done. Patient can f/u with Dr. Diaz [phone] as outpatient.
[2019-12-11 08:05] LABS: HEMATOCRIT 32.4 % (35.4-49); HEMOGLOBIN 10.7 GM/dL (11.7-16.9); MCH 31.7 pg (25.7-33.7); MCHC 33.2 g/dl (32.0-35.9); MEAN CELL VOLUME 95.6 fl (80-96); MEAN PLT VOLUME 7.6 fl (7.5-11.1); PLATELET COUNT 213 K/MM3 (134-434); RBC 3.38 M/mm3 (4.00-5.60); WHITE BLOOD COUNT 5.5 K/mm3 (4.0-10.0)
[2019-12-11 08:31] LABS: ALBUMIN 1.8 g/dl (3.4-5.0); BILIRUBIN,DIRECT 0.2 mg/dL (0.0-0.2); BILIRUBIN,TOTAL 0.4 mg/dL (0.2-1); TOT PROT 6.7 g/dl (6.4-8.2)
--- NOTE | 2019-12-11 09:43 | DS ---
Physical Exam: SUBJECTIVE: Patient seen and examined. Pt stated he feels well. Denies pain today. Pt is to receive PICC line today and discharged to nursing facility. Bandage change as per Dr. Langston's team. OBJECTIVE: Vital Signs Period Temp Pulse Resp BP Sys/Gee Pulse Ox Last 24 Hr 98.2 F-98.9 F 98-99 18-20 130-134/70-76 95-96 PHYSICAL EXAM GENERAL: Awake and alert, not in acute distress HEENT: NCAT, EOMI, moist mucus membranes CARDIAC: RRR, S1, S2 present. No murmurs RESPIRATORY: CTA b/l, no wheezes ABDOMEN: Obese, soft, nondistended. Normoactive bowel sounds. Nontender to palp ation. EXTREMITIES: LLE immobilized and bandaged. Clean, dry and intact. SKIN: Warm, dry. LABS CBC, BMP 12/11/19 07:45 12/09/19 05:40 HOSPITAL COURSE: 68 year old M PMH L TKR 2018, DVT 2017 (on coumadin s/p IVC filter), HTN, hypercholesterolemia, GERD, seizure disorder, BPH, OA who presented with worsening L knee pain and swelling with drainage for several weeks. Pt admitted for infected L knee. He is s/p I&D of L knee, L TKA hardware removal, tibial tubercle osteotomy, and placement of L knee abx spacer on 11/18/2019. He is also s/p I&D and exchange of abx spacer on 11/27. Pt was treated with Zosyn for 22 days. Pt is to continue zosyn for another 21 days via PICC line. Wound care was done through Dr. Langston's team. Pt was evaluated by Heme/Onc due to history of DVT. Pt had history of IVC filter placed on 06/2018 and AC was held due to excessive bleeding through knee wound. Bleeding stopped and H/H stabilized. Deferred AC management to Orthopedic surgery. Pt is hemodynamically stable and medically optimized for discharge to senior living facility for further care. He is to follow up with Dr. Langston on 12/20/2019 at 4PM for further knee care. Instructed pt to call office should any issues occur before appointment. Date of Admission:11/17/19 Date of Discharge: 12/11/19 Minutes to complete discharge: 36 Discharge Summary Problems reviewed: Yes Reason For Visit: POSTOPERATIVE COMPLICATION, DEEP VEIN THROMBOSIS Current Active Problems Acute blood loss anemia (Acute) Encounter for screening laboratory testing for COVID-19 virus (Acute) Infection of prosthetic left knee joint (Acute) Left leg DVT (Acute) Post-operative complication (Acute) Seizure disorder (Acute) Condition: Stable - Instructions Diet, Activity, Other Instructions: Your visit: You came to to the hospital for swelling of the left knee and were admitted to the hospital for care of an infection of the left knee. During your stay, you received antibiotics and had a surgery to remove the infected knee hardware. You will now need long-term antibiotics through a peripherally inserted central cat heter (PICC) line. You are now stable and may continue your care in a senior living facility. Medications changes: -Please continue to take Zosyn through your PICC line for the next 21 days for a total of 6 weeks. -Please take EC Aspirin 81mg 2x per day as per 's orthopedic recommendations. Please follow hemoglobin on a daily level if it Drops the level call Dr Langston's office and inform them. -Continue to take all other home medications as prescribed. -Patient is having soft stool since patient was on Stool softener, if continues to have more liquidy diarrhea then please do Cdiff testing on the patient since has been on IV antibiotics. Follow up: - Please follow-up with your orthopedic surgeon, Dr. Langston, on 12/24/2019 at 4PM. Use this appointment to discuss appropriate weight bearing on your left knee. - Please follow up with your telemarketing representative, Dr. José, in 1 week. You will need to have your clotting disorder assessed. - Please follow up with the interventional radiologist, Dr. Morris, in 21 days to remove your PICC line after the completion of your antibiotics. -Please follow up with your eye physician, Dr. Diaz, in 2 weeks. - Visit with your Primary Care Provider in 2 weeks. If you do not have a primary care provider you may make an appointment with Dr. Gonzalez at the [facility] clinic located at [address] [place] [address] ([phone]). Additional Instructions: Please return to the Emergency Department if you experience worsening pain, fevers, chills, shortness of breath, or chest pain, or if you experience any worsening, new or concerning symptoms. -Please DO NOT bear weight on your left knee, strictly. Wear knee immobilizer at all times. -If you are experiencing any pain or have any concern regarding your left leg, please reach out to his office as soon as possible to be seen sooner. Wound care Keep incision clean and dry. Do not apply lotion or ointments to the incisions. The danny and sutures will be removed by your surgeon in the office. Apply Xeroform, 4x4, small amount of webril and KELSEA wrap to knee. Diet There are no dietary restrictions. Eat healthy, high-fiber foods. Drink 6 to 8 glasses of liquid each day. This will assist in keeping your bowels are regular. Severe pain not relieved by medication Fever of 101 or higher Excessive bleeding or drainage on dressing Inability to urinate If you experience any chest pain or shortness of breath please seek emergency tr eatment Referrals: [facility] [Provider Group] - 2 Weeks (Please follow with Dr. Gonzalez) Edilberto Morris MD [Staff Physician] - 12/23/19 (Please follow up to remove your PICC line 4-6 weeks after the completion of your antibiotics.) Sherry Diaz MD [Staff Physician] - 2 Weeks Ken José MD [Staff Physician] - 1 Week Jonathan Langston MD [Primary Care Provider] - 12/24/19 (Infected Left knee. Incision and drainage, antibiotic spacer placement.) [facility]position: [facility] - Home Medications Comprehensive Discharge Medication List: Ambulatory Orders Phenytoin Sodium Extended 500 mg PO HS #90 capsule 07/15/18 Amlodipine-Olmesartan 10-40 mg 1 tab PO DAILY 11/11/19 Finasteride [Proscar] 5 mg PO DAILY 11/11/19 Fluticasone/Vilanterol [Breo Ellipta 100-25 Mcg INH] 1 each IH HS 11/11/19 Metoprolol Succinate 50 mg PO DAILY 11/11/19 Tamsulosin HCl [Flomax -] 0.4 mg PO DAILY 11/11/19 Piperacillin/Tazob 3.375 gm [Zosyn 3.375GM Ivpb (Pre-Docked)] 3.375 gm IVPB Q8H 22 Days bag 12/09/19 Phenytoin Na Extended [Dilantin -] 500 mg PO HS capsule 12/10/19 This patient is new to me today: No Emergency Visit: Yes ED Registration Date: 11/17/19 Care time: The patient presented to the Emergency Department on the above date and was hospitalized for further evaluation of their emergent condition. Critical Care patient: No - Discharge Referral Referred to [facility] No ATTENDING PHYSICIAN STATEMENT I saw and evaluated the patient. I reviewed the resident's note and discussed the case with the resident. I agree with the resident's findings and plan as documented. SUBJECTIVE: OBJECTIVE: ASSESSMENT AND PLAN:
[2019-12-11] MEDS: TAMSULOSIN HCL 0.4 MG CAP PO SCH (10:49)
[2019-12-11] MEDS: AMINO ACIDS/PROTEIN HYDROLYS 30 ML LIQUID.PKT PO SCH ×2 (10:49→17:17)
[2019-12-11] MEDS: LACTOBACILLUS ACIDOPHILUS 1 TABLET PO SCH (10:49)
[2019-12-11] MEDS: MINERAL OIL/PET HY-PHL TOPICAL OINTMENT 454 GM JAR TP SCH (10:49)
[2019-12-11] MEDS: MULTIVIT-MINERALS ORAL LIQUID PO SCH (10:50)
[2019-12-11] MEDS: ASCORBIC ACID 250 MG TABLET (FP) PO SCH (10:50)
[2019-12-11] MEDS: FINASTERIDE 5 MG TABLET (FP) PO SCH (10:50)
[2019-12-11] MEDS: HYDROCHLOROTHIAZIDE 12.5 MG CAPSULE (FP) PO SCH (10:50)
[2019-12-11] MEDS: FAMOTIDINE 20 MG TABLET PO SCH (10:50)
[2019-12-11] MEDS: BUDESONIDE/FORMETEROL FUMARATE 80/4.5 mcg INHALER IH SCH (10:50)
[2019-12-11] MEDS: PANTOPRAZOLE 40 MG TABLET PO SCH (10:50)
--- NOTE | 2019-12-11 11:28 | PN ---
Progress Note, Physician - Current Medication List Current Medications: Active Medications Acetaminophen (Tylenol -) 325 mg PO Q4H PRN PRN Reason: PAIN 1-3 Amino Acids (Prosource No Carb Liquid Pkt) 30 ml PO BID@0800,1730 [facility] Last Admin: 12/11/19 10:49 Dose: 30 ml Documented by: Ascorbic Acid (Vitamin C -) 250 mg PO BID [facility] Last Admin: 12/11/19 10:50 Dose: 250 mg Documented by: Budesonide/Formoterol Fumarate (Symbicort 80/4.5mcg -) 2 puff IH BID [facility] Last Admin: 12/11/19 10:50 Dose: 2 puff Documented by: Emollient Ointment (Aquaphor -) 1 applic TP BID [facility] Last Admin: 12/11/19 10:49 Dose: 1 applic Documented by: Famotidine (Pepcid -) 40 mg PO DAILY [facility] Last Admin: 12/11/19 10:50 Dose: 40 mg Documented by: Finasteride (Proscar -) 5 mg PO DAILY [facility] Last Admin: 12/11/19 10:50 Dose: 5 mg Documented by: Hydrochlorothiazide (Hctz -) 12.5 mg PO DAILY [facility] Last Admin: 12/11/19 10:50 Dose: 12.5 mg Documented by: Piperacillin Sod/Tazobactam (Sod 3.375 gm/ Dextrose) 50 mls @ 100 mls/hr IVPB Q8H-IV [facility]; Protocol Last Admin: 12/11/19 10:50 Dose: 100 mls/hr Documented by: Lactobacillus Acidophilus (Bacid -) 1 tab PO DAILY [facility] Last Admin: 12/11/19 10:49 Dose: 1 tab Documented by: Metoprolol Succinate (Toprol Xl -) 50 mg PO DAILY [facility] Last Admin: 12/11/19 10:50 Dose: 50 mg Documented by: Multivitamins/Minerals (Certavite-Antioxidant Liquid) 15 ml PO DAILY [facility] Last Admin: 12/11/19 10:50 Dose: Not Given Documented by: Pantoprazole Sodium (Protonix -) 40 mg PO DAILY [facility] Last Admin: 12/11/19 10:50 Dose: 40 mg Documented by: Phenytoin Sodium (Dilantin -) 500 mg PO HS [facility] Last Admin: 12/10/19 21:59 Dose: 500 mg Documented by: Senna/Docusate Sodium (Pericolace -) 2 tablet PO BID PRN PRN Reason: CONSTIPATION Tamsulosin HCl (Flomax -) 0.4 mg PO DAILY@0830 [facility] Last Admin: 12/11/19 10:49 Dose: 0.4 mg Documented by: - Objective Vital Signs: Vital Signs Temperature 98.2 F 12/11/19 05:08 Pulse Rate 98 H 12/11/19 05:08 Respiratory Rate 20 12/11/19 05:08 Blood Pressure 130/70 12/11/19 05:08 O2 Sat by Pulse Oximetry (%) 95 12/11/19 05:08 Labs: CBC, BMP 12/11/19 07:45 12/09/19 05:40 INR, PTT INR 1.28 (0.83-1.09) H 11/30/19 05:25
--- NOTE | 2019-12-11 12:53 | PN ---
Teaching Attending Note Name of Resident: Dilcia Gonzalez ATTENDING PHYSICIAN STATEMENT I saw and evaluated the patient. I reviewed the resident's note and discussed the case with the resident. I agree with the resident's findings and plan as documented. SUBJECTIVE: Patient feels better with NAD. OBJECTIVE: Vital Signs Temperature 98.2 F 12/11/19 05:08 Pulse Rate 98 H 12/11/19 05:08 Respiratory Rate 20 12/11/19 05:08 Blood Pressure 130/70 12/11/19 05:08 O2 Sat by Pulse Oximetry (%) 95 12/11/19 05:08 PE:per resident's note CBCD WBC 5.5 K/mm3 (4.0-10.0) 12/11/19 07:45 RBC 3.38 M/mm3 (4.00-5.60) L 12/11/19 07:45 Hgb 10.7 GM/dL (11.7-16.9) L 12/11/19 07:45 Hct 32.4 % (35.4-49) L 12/11/19 07:45 MCV 95.6 fl (80-96) 12/11/19 07:45 MCHC 33.2 g/dl (32.0-35.9) 12/11/19 07:45 RDW 18.0 % (11.9-15.9) H 12/11/19 07:45 Plt Count 213 K/MM3 (134-434) 12/11/19 07:45 MPV 7.6 fl (7.5-11.1) 12/11/19 07:45 CMP Sodium 138 mmol/L (136-145) 12/09/19 05:40 Potassium 4.1 mmol/L (3.5-5.1) 12/09/19 05:40 Chloride 104 mmol/L (98-107) 12/09/19 05:40 Carbon Dioxide 29 mmol/L (21-32) 12/09/19 05:40 Anion Gap 5 MMOL/L (8-16) L 12/09/19 05:40 BUN 14.3 mg/dL (7-18) 12/09/19 05:40 Creatinine 0.8 mg/dL (0.55-1.3) 12/09/19 05:40 Random Glucose 92 mg/dL (74-106) 12/09/19 05:40 Calcium 7.8 mg/dL (8.5-10.1) L 12/09/19 05:40 Total Bilirubin 0.4 mg/dL (0.2-1) 12/11/19 07:45 AST 64 U/L (15-37) H 12/11/19 07:45 ALT 86 U/L (13-61) H 12/11/19 07:45 Alkaline Phosphatase 251 U/L (45-117) H 12/11/19 07:45 Total Protein 6.7 g/dl (6.4-8.2) 12/11/19 07:45 Albumin 1.8 g/dl (3.4-5.0) L 12/11/19 07:45 CARDIAC ENZYMES Creatine Kinase 51 U/L (26-308) 12/08/19 11:23 Troponin I < 0.02 ng/ml (0.00-0.05) 12/09/19 05:40 Current Medications Generic Name Dose Route Start Last Admin Trade Name Freq PRN Reason Stop Dose Admin Acetaminophen 325 mg 12/08/19 14:51 Tylenol - PO Q4H PRN PAIN 1-3 Amino Acids 30 ml 12/08/19 17:30 12/11/19 10:49 Prosource No Carb Liquid Pkt PO 30 ml BID@0800,1730 [facility] Administration Ascorbic Acid 250 mg 12/08/19 22:00 12/11/19 10:50 Vitamin C - PO 250 mg BID [facility] Administration Budesonide/Formoterol Fumarate 2 puff 12/04/19 10:00 12/11/19 10:50 Symbicort 80/4.5mcg - IH 2 puff BID [facility] Administration Emollient Ointment 1 applic 12/06/19 22:00 12/11/19 10:49 Aquaphor - TP 1 applic BID [facility] Administration Famotidine 40 mg 12/09/19 12:12 12/11/19 10:50 Pepcid - PO 40 mg DAILY [facility] Administration Finasteride 5 mg 12/04/19 10:00 12/11/19 10:50 Proscar - PO 5 mg DAILY [facility] Administration Hydrochlorothiazide 12.5 mg 12/03/19 10:00 12/11/19 10:50 Hctz - PO 12.5 mg DAILY [facility] Administration Piperacillin Sod/Tazobactam 50 mls @ 100 mls/hr 12/04/19 10:00 12/11/19 10:50 Sod 3.375 gm/ Dextrose IVPB 100 mls/hr Q8H-IV [facility] Administration Protocol Lactobacillus Acidophilus 1 tab 12/04/19 10:00 12/11/19 10:49 Bacid - PO 1 tab DAILY [facility] Administration Metoprolol Succinate 50 mg 12/04/19 10:00 12/11/19 10:50 Toprol Xl - PO 50 mg DAILY [facility] Administration Multivitamins/Minerals 15 ml 12/09/19 10:00 12/11/19 10:50 Certavite-Antioxidant Liquid PO Not Given DAILY [facility] Pantoprazole Sodium 40 mg 12/04/19 10:00 12/11/19 10:50 Protonix - PO 40 mg DAILY [facility] Administration Phenytoin Sodium 500 mg 12/04/19 22:00 12/10/19 21:59 Dilantin - PO 500 mg HS [facility] Administration Senna/Docusate Sodium 2 tablet 12/05/19 11:53 Pericolace - PO BID PRN [facility] Tamsulosin HCl 0.4 mg 12/04/19 08:30 12/11/19 10:49 Flomax - PO 0.4 mg DAILY@0830 [facility] Administration Home Medications Medication Instructions Recorded Phenytoin Sodium Extended 500 mg PO HS #90 capsule 07/15/18 Amlodipine-Olmesartan 10-40 mg 1 tab PO DAILY 11/11/19 Finasteride [Proscar] 5 mg PO DAILY 11/11/19 Fluticasone/Vilanterol [Breo 1 each IH HS 11/11/19 Ellipta 100-25 Mcg INH] Metoprolol Succinate 50 mg PO DAILY 11/11/19 Tamsulosin HCl [Flomax -] 0.4 mg PO DAILY 11/11/19 Piperacillin/Tazob 3.375 gm [Zosyn 3.375 gm IVPB Q8H 22 Days bag 12/09/19 3.375GM Ivpb (Pre-Docked)] Phenytoin Na Extended [Dilantin -] 500 mg PO HS capsule 12/10/19 Microbiology 11/28/19 11:13 Knee - Left Gram Stain - Final 11/28/19 11:13 Knee - Left Wound Culture - Preliminary No growth. 11/18/19 18:31 Tissue-Other AFB Smear Concentration - Final 11/18/19 18:31 Tissue-Other Mycobacterial Culture - Preliminary 11/20/19 19:35 Blood - Peripheral Venous Blood Culture - Final NO GROWTH AFTER 5 DAYS INCUBATION 11/20/19 19:50 Blood - Peripheral Venous Blood Culture - Final NO GROWTH AFTER 5 DAYS INCUBATION 11/18/19 18:31 Tissue-Other Gram Stain - Final 11/18/19 18:31 Tissue-Other Tissue Culture - Final Proteus Mirabilis 11/18/19 18:31 Tissue-Other Anaerobic Culture - Final Prevotella Disiens 11/18/19 18:31 Tissue-Other LIDIA Preparation - Preliminary 11/18/19 18:31 Tissue-Other Fungal Culture - Preliminary 11/17/19 23:20 Blood - Peripheral Venous Blood Culture - Final NO GROWTH AFTER 5 DAYS INCUBATION 11/17/19 23:20 Blood - Peripheral Venous Blood Culture - Final NO GROWTH AFTER 5 DAYS INCUBATION 11/18/19 16:37 Knee - Left AFB Smear Concentration - Final 11/18/19 16:37 Knee - Left Mycobacterial Culture - Preliminary 11/21/19 06:00 Urine - Urine Clean Catch Urine Culture - Final NO GROWTH OBTAINED 11/18/19 16:37 Knee - Left Gram Stain - Final 11/18/19 16:37 Knee - Left Wound Culture - Final Proteus Mirabilis 11/17/19 23:20 Knee - Left Gram Stain - Final 11/17/19 23:20 Knee - Left Wound Culture - Final Serratia Marcescens Enterococcus Faecalis Proteus Mirabilis 11/18/19 19:51 Urine - Urine - Catheterized Urine Culture - Final NO GROWTH OBTAINED 11/18/19 16:37 Knee - Left LIDIA Preparation - Preliminary 11/18/19 16:37 Knee - Left Fungal Culture - Preliminary ASSESSMENT AND PLAN: This patient is a 68yom with Pmhx of Left TKR 2019, DVT 2016 (on coumadin s/p IVC filter by Dr Segundo Amaya in 06/2018), HTN, HLD, GERD, seizure disorder, BPH, OA who presented with pain in L knee and was found to have prosthetic infection , now s/p I&D, removal of prosthesis and Abx spaced on 11/17, and s/p evacuation of hematoma. # L knee prosthesis infection : s/p I&D, removal of prosthesis and Abx spaced on 11/17, on IV zosyn for 22 more days # S/p L knee hematoma , s/p evacuation of hematoma and revision , no further bleeding, h/h stable 9.8 , drainage were removed by the surgical team, patient of Dr dangelo. will continue to monitor H/H, no Weight baring on LLE as per dr Dangelo , also as per dr dangelo's recommendations: to give ECASA 81mg po bid for 6 weeks for PPx. Patient is a high risk for DVT since had a recent surgery and should be on some kind of AC as per Ortho, since he is a high risk for rebleed, ortho is recommending Asa 81mg bid x 6 weeks. Explained to the patient the risk and benefit and the risk of possible rebleed the knee due to aspirin , patient understands the risks of aspirin . Patient has an IVC filter that was placed by Dr amaya on 06/2018. Further recommendations by Dr Dangelo. Would default choice of anticoagulation to Orthopedics since they have been managing his care post op. # S/p acute blood loss anemia : stable now , no further bleed, # chronic L popletial DVT. s/p IVC filter 07/04 , as per dr amaya , no need for further Ac # H/o seizure DO continue dilantin # Urinary retention. resolved cont home finasteride and flomax # Mild transaminitis : possible due to Abx, continue to monitor , liver function test in 2 days and notify ID and Dr dangelo SCD to R leg possible dc if stable Picc line then to rehab
--- NOTE | 2019-12-11 12:57 | PN ---
Progress Note (short form) - Note Progress Note: Surgery Dressing change: Patient with no complaints Left LE dressings removed: Diffuse edema throughout continues to improve, mild effusion. incision c/d/i with sutures and danny in situ. surrounding tissue intact with no tracking erythema or evidence of collection or d/c. LE compartment soft supple and non-tender. foot warm and well perfused with +2 DP. Xeroform, 4x4, webril and dipak applied with new knee immobilizer. Problem List - Problems (1) Infection of prosthetic left knee joint Code(s): T84.54XA - INFECT/INFLM REACTION DUE TO INTERNAL LEFT KNEE PROSTH, INIT (2) Left leg DVT Code(s): I82.402 - ACUTE EMBOLISM AND THOMBOS UNSP DEEP VEINS OF L LOW EXTREM (3) Wound dehiscence Code(s): T81.30XA - DISRUPTION OF WOUND, UNSPECIFIED, INITIAL ENCOUNTER
[2019-12-11] MEDS ORDERED: CHOLESTYRAMINE/ASPARTAME 4 GM PACKET PO SCH (14:00)
[2019-12-11 15:09] VITALS: BP 140/77; PULSE 101; TEMP 98.4
[2019-12-11] MEDS ORDERED: ACETAMINOPHEN 325 MG TABLET (FP) ONE (17:00)
[2019-12-11] MEDS ORDERED: LACTOBACILLUS ACIDOPHILUS 1 TABLET PO SCH (22:00)
== END 2019-12-11 17:38 | DRG 313 ==
LOC: JER 21:13 → JERBED 23:06 → J5S 11-18 02:12 → JICU 11-18 21:59 → J2C 11-19 04:47 → J4W 11-19 11:06 → J8W 12-03 17:22 → J4W 12-08 12:18
PROVIDERS: ADMIT Internal Medicine; ATTEND Internal Medicine
PROC: 0SPD0JZ Removal of Synthetic Substitute from Left Knee Joint, Open Approach (ICD-10-PCS; 2019-11-18)
PROC: 0SBD0ZZ Excision of Left Knee Joint, Open Approach (ICD-10-PCS; 2019-11-18)
PROC: 0JQP0ZZ Repair Left Lower Leg Subcutaneous Tissue and Fascia, Open Approach (ICD-10-PCS; 2019-11-18)
PROC: 0SW Lower Joints, Revision (ICD-10-PCS; principal; 2019-11-18 14:30)
PROC: 0S9D0ZZ Drainage of Left Knee Joint, Open Approach (ICD-10-PCS; 2019-11-19)
PROC: 0JQP0ZZ Repair Left Lower Leg Subcutaneous Tissue and Fascia, Open Approach (ICD-10-PCS; 2019-11-19)
PROC: 30233N1 Transfusion of Nonautologous Red Blood Cells into Peripheral Vein, Percutaneous Approach (ICD-10-PCS; 2019-11-27)
PROC: 30233L1 Transfusion of Nonautologous Fresh Plasma into Peripheral Vein, Percutaneous Approach (ICD-10-PCS; 2019-11-27)
PROC: 30233K1 Transfusion of Nonautologous Frozen Plasma into Peripheral Vein, Percutaneous Approach (ICD-10-PCS; 2019-11-27)
PROC: 02HV33Z Insertion of Infusion Device into Superior Vena Cava, Percutaneous Approach (ICD-10-PCS; 2019-12-11)
DX: T84.54XA Infection and inflammatory reaction due to internal left knee prosthesis, initial encounter (principal); T84.83XA Hemorrhage due to internal orthopedic prosthetic devices, implants and grafts, initial encounter; Y83.9 Surgical procedure, unspecified as the cause of abnormal reaction of the patient, or of later complication, without mention of misadventure at the time of the procedure; D62 Acute posthemorrhagic anemia; R33.9 Retention of urine, unspecified; R74.0 Nonspecific elevation of levels of transaminase and lactic acid dehydrogenase [LDH]; K21.9 Gastro-esophageal reflux disease without esophagitis; I10 Essential (primary) hypertension; N40.0 Benign prostatic hyperplasia without lower urinary tract symptoms; I82.402 Acute embolism and thrombosis of unspecified deep veins of left lower extremity; T81.30XA Disruption of wound, unspecified, initial encounter; G40.909 Epilepsy, unspecified, not intractable, without status epilepticus; E78.5 Hyperlipidemia, unspecified; R07.9 Chest pain, unspecified; E66.01 Morbid (severe) obesity due to excess calories; Z68.34 Body mass index [BMI] 34.0-34.9, adult
CPT/HCPCS: 36415; 36430; 36569; 71045-TC-FY; 73560-TC-LT-FY; 73562-TC-LT-FY; 74018-TC-FY; 77001-TC-FY; 80048; 80053; 80076; 80185; 81003; 82550; 82962; 83605; 83735; 84100; 84484; 85025; 85027; 85610; 85730; 86850; 86900; 86901; 86922; 87040; 87070; 87075; 87076; 87086; 87102; 87116; 87186; 87205; 87206; 87210; 87324; 87449; 88300-TC; 88304-TC; 93005; 93010; 93970-TC; 93971-TC; 94010; 94760; 97116-GP; 97162-GP; 99285-25; C1751; G0480; P9017; P9058; Q9968; U0003

== ENCOUNTER 2020-02-12 04:16 | Inpatient (IN) | payer OTHER ==
[2020-02-15 13:22] LABS: INR 1.12 (0.83-1.09); PROTHROMBIN TIME (PATIENT) 13.5 SEC (9.7-13.0)
[2020-02-15 13:25] LABS: ACTIVATED PTT 25.7 SECONDS (25.2-36.5)
[2020-02-15] MEDS ORDERED: HEPARIN NA (PORCINE) 5,000 UNITS/ML 1ML VIAL ONE (14:11)
[2020-02-15] MEDS ORDERED: MIDAZOLAM HCL 2 MG/2 ML SINGLE DOSE VIAL ONE ×5 (14:41→20:38)
[2020-02-15] MEDS ORDERED: PROPOFOL 20 ML ONE ×10 (15:07→19:48)
[2020-02-15] MEDS ORDERED: VANCOMYCIN 1,000 MG VIAL (RESTRICTED TO ID ONLY) IVPB ONE (15:35)
[2020-02-15] MEDS ORDERED: ceFAZolin SODIUM 1 GM VIAL IVPB ONE ×3 (15:40→19:00)
[2020-02-15] MEDS ORDERED: SUCCINYLCHOLINE CHLORIDE 200 MG/10 ML SYRINGE ONE ×2 (15:49→17:25)
[2020-02-15] MEDS ORDERED: ROCURONIUM BROMIDE 50 MG/5 ML SYRINGE ONE (15:50)
[2020-02-15] MEDS ORDERED: MAGNESIUM HYDROX 2400MG/30ML ORAL SUSPENSION 30 ML CUP PO PRN (21:26)
[2020-02-15] MEDS ORDERED: MAG HYDROX/AL HYDROX/SIMETH 30 ML UNIT-DOSE CUP PO PRN (21:26)
[2020-02-15] MEDS ORDERED: ONDANSETRON 4 MG/2 ML VIAL IVPUSH PRN (21:26)
[2020-02-15] MEDS ORDERED: LACTATED RINGERS SOLUTION 1,000 ML IV SCH (21:30)
[2020-02-15] MEDS ORDERED: oxyCODONE HCL 5 MG TABLET PO PRN (21:32)
[2020-02-15] MEDS ORDERED: ENOXAPARIN NA (PORCINE) 40 MG/0.4 ML DISP.SYRIN SQ ONE (22:29)
[2020-02-15] MEDS: ENOXAPARIN NA (PORCINE) 40 MG/0.4 ML DISP.SYRIN SQ SCH (22:30)
[2020-02-16] MEDS: ENOXAPARIN NA (PORCINE) 40 MG/0.4 ML DISP.SYRIN SQ SCH (01:07)
[2020-02-16] MEDS: ACETAMINOPHEN 325 MG TABLET (FP) PO SCH ×5 (01:23→23:24)
[2020-02-16] MEDS: SENNOSIDES/DOCUSATE COMBO (SENNA PLUS) TABLET (UD) PO SCH ×3 (01:23→23:20)
[2020-02-16] MEDS: PHENYTOIN NA EXTENDED 100 MG CAPSULE (FP) PO SCH ×2 (01:41→23:23)
[2020-02-16 02:05] LABS: HEMATOCRIT 38.1 % (35.4-49); HEMOGLOBIN 12.5 GM/dL (11.7-16.9); MCH 30.4 pg (25.7-33.7); MCHC 32.7 g/dl (32.0-35.9); PLATELET COUNT 153 K/MM3 (134-434); RDW 14.9 % (11.9-15.9); WHITE BLOOD COUNT 9.6 K/mm3 (4.0-10.0)
[2020-02-16 02:14] LABS: INR 1.14 (0.83-1.09); PROTHROMBIN TIME (PATIENT) 13.7 SEC (9.7-13.0)
[2020-02-16 02:19] LABS: BLOOD UREA NITROGEN 17.5 mg/dL (7-18); CALCIUM 8.5 mg/dL (8.5-10.1)
[2020-02-16 02:22] LABS: CREATININE 0.9 mg/dL (0.55-1.3)
[2020-02-16] MEDS ORDERED: SODIUM CHLORIDE 500 ML IV STA (02:51)
[2020-02-16] MEDS: LACTATED RINGERS SOLUTION 1,000 ML/1,000 ML INFUS.BAG IV SCH (07:00)
[2020-02-16 08:32] LABS: HEMATOCRIT 33.6 % (35.4-49); MCH 30.3 pg (25.7-33.7); MCHC 32.6 g/dl (32.0-35.9); MEAN PLT VOLUME 9.5 fl (7.5-11.1); PLATELET COUNT 136 K/MM3 (134-434); RBC 3.61 M/mm3 (4.00-5.60); RDW 14.7 % (11.9-15.9); WHITE BLOOD COUNT 8.7 K/mm3 (4.0-10.0)
[2020-02-16 09:01] LABS: BLOOD UREA NITROGEN 17.4 mg/dL (7-18); CALCIUM 7.9 mg/dL (8.5-10.1); MAGNESIUM 2.1 mg/dL (1.8-2.4)
[2020-02-16 09:04] LABS: PHOSPHOROUS 4.4 mg/dL (2.5-4.9)
[2020-02-16] MEDS: FINASTERIDE 5 MG TABLET (FP) PO SCH (09:32)
[2020-02-16] MEDS: PANTOPRAZOLE 40 MG TABLET PO SCH (09:32)
[2020-02-16] MEDS: TAMSULOSIN HCL 0.4 MG CAP PO SCH (09:32)
[2020-02-16] MEDS: CELECOXIB 200 MG CAPSULE PO SCH (09:50)
[2020-02-16] MEDS: UMECLIDINIUM/VILANTEROL (ANORO) 62.5/25 MCG INHALER IH SCH (09:50)
[2020-02-16] MEDS ORDERED: amLODIPine BESYLATE 10 MG TABLET (FP) PO SCH (10:00)
[2020-02-16] MEDS ORDERED: VALSARTAN 160 MG TABLET PO SCH (10:00)
[2020-02-16] MEDS ORDERED: TAMSULOSIN HCL 0.4 MG CAP PO SCH (10:00)
[2020-02-16] MEDS ORDERED: AMLODIPINE OLMESARTAN PO SCH (10:00)
[2020-02-16 14:32] LABS: INR 1.24 (0.83-1.09); PROTHROMBIN TIME (PATIENT) 15.2 SEC (9.7-13.0)
[2020-02-16] MEDS ORDERED: PIPERACILLIN/TAZOBACTAM 3.375 GM VIAL IVPB ONE (16:19)
[2020-02-16] MEDS ORDERED: DEXTROSE 5%-WATER - 50 ML IVPB ONE (16:19)
[2020-02-16] MEDS: PIPERACILLIN/TAZOB 3.375 GM 3.375 GM in DEXTROSE 5%-WATER - 50 ML IVPB SCH ×2 (16:32→18:47)
[2020-02-17] MEDS: PIPERACILLIN/TAZOB 3.375 GM 3.375 GM in DEXTROSE 5%-WATER - 50 ML IVPB SCH ×4 (02:59→19:19)
[2020-02-17] MEDS: ACETAMINOPHEN 325 MG TABLET (FP) PO SCH ×4 (04:46→23:09)
[2020-02-17] MEDS ORDERED: PIPERACILLIN/TAZOBACTAM 3.375 GM VIAL IVPB ONE ×3 (05:17→18:51)
[2020-02-17] MEDS ORDERED: DEXTROSE 5%-WATER - 50 ML IVPB ONE ×3 (05:17→18:51)
[2020-02-17] MEDS: LACTATED RINGERS SOLUTION 1,000 ML/1,000 ML INFUS.BAG IV SCH ×2 (05:34→23:07)
[2020-02-17 08:23] LABS: MCH 30.1 pg (25.7-33.7); MCHC 33.4 g/dl (32.0-35.9); MEAN CELL VOLUME 90.4 fl (80-96); MEAN PLT VOLUME 9.3 fl (7.5-11.1); PLATELET COUNT 94 K/MM3 (134-434); RBC 2.65 M/mm3 (4.00-5.60); RDW 14.3 % (11.9-15.9); WHITE BLOOD COUNT 5.6 K/mm3 (4.0-10.0)
[2020-02-17 08:25] LABS: INR 1.23 (0.83-1.09); PROTHROMBIN TIME (PATIENT) 14.8 SEC (9.7-13.0)
[2020-02-17 08:49] LABS: ALBUMIN 2.2 g/dl (3.4-5.0); BLOOD UREA NITROGEN 27.6 mg/dL (7-18); CALCIUM 7.3 mg/dL (8.5-10.1)
[2020-02-17 08:52] LABS: CREATININE 1.1 mg/dL (0.55-1.3)
[2020-02-17 08:53] LABS: BILIRUBIN,TOTAL 0.7 mg/dL (0.2-1); TOT PROT 5.3 g/dl (6.4-8.2)
[2020-02-17] MEDS: TAMSULOSIN HCL 0.4 MG CAP PO SCH (09:29)
[2020-02-17] MEDS: SENNOSIDES/DOCUSATE COMBO (SENNA PLUS) TABLET (UD) PO SCH ×2 (09:30→23:08)
[2020-02-17] MEDS: PANTOPRAZOLE 40 MG TABLET PO SCH (09:30)
[2020-02-17] MEDS: FINASTERIDE 5 MG TABLET (FP) PO SCH (09:30)
[2020-02-17] MEDS: ENOXAPARIN NA (PORCINE) 40 MG/0.4 ML DISP.SYRIN SQ SCH (09:31)
[2020-02-17] MEDS: CELECOXIB 200 MG CAPSULE PO SCH (09:32)
[2020-02-17] MEDS: UMECLIDINIUM/VILANTEROL (ANORO) 62.5/25 MCG INHALER IH SCH (09:32)
[2020-02-17] MEDS ORDERED: POLYETHYLENE GLYCOL 3350 119 GM BTL PO SCH (11:45)
[2020-02-17 12:12] LABS: BASO % 0.7 % (0-2.0); EOS % 6.9 % (0-4.5); HEMATOCRIT 21.2 % (35.4-49); LYMPH % 10.9 % (8-40); MCH 30.5 pg (25.7-33.7); MCHC 33.1 g/dl (32.0-35.9); MEAN CELL VOLUME 92.3 fl (80-96); MEAN PLT VOLUME 9.2 fl (7.5-11.1); MONO % 13.1 % (3.8-10.2); NEUT % 68.4 % (42.8-82.8); PLATELET COUNT 88 K/MM3 (134-434); RDW 14.9 % (11.9-15.9); WHITE BLOOD COUNT 5.4 K/mm3 (4.0-10.0)
[2020-02-17] MEDS ORDERED: oxyCODONE HCL 5 MG TABLET PO PRN (20:56)
[2020-02-17] MEDS ORDERED: MAG HYDROX/AL HYDROX/SIMETH 30 ML UNIT-DOSE CUP PO PRN (20:56)
[2020-02-17] MEDS ORDERED: ONDANSETRON 4 MG/2 ML VIAL IVPUSH PRN (20:56)
[2020-02-17] MEDS ORDERED: MAGNESIUM HYDROX 2400MG/30ML ORAL SUSPENSION 30 ML CUP PO PRN (20:56)
[2020-02-17] MEDS ORDERED: SENNOSIDES 8.6MG TABLET (FP) PO SCH ×2 (22:00)
[2020-02-17] MEDS: FERROUS SO4 325 MG TABLET (FP) PO SCH (23:08)
[2020-02-17] MEDS: PHENYTOIN NA EXTENDED 100 MG CAPSULE (FP) PO SCH (23:08)
[2020-02-18] MEDS: PIPERACILLIN/TAZOB 3.375 GM 3.375 GM in DEXTROSE 5%-WATER - 50 ML IVPB SCH ×3 (02:00→17:44)
[2020-02-18] MEDS ORDERED: DEXTROSE 5%-WATER - 50 ML IVPB ONE ×4 (03:43→22:41)
[2020-02-18] MEDS ORDERED: PIPERACILLIN/TAZOBACTAM 3.375 GM VIAL IVPB ONE ×4 (03:43→22:38)
[2020-02-18 04:25] LABS: BASO % 0.7 % (0-2.0); EOS % 6.9 % (0-4.5); HEMATOCRIT 24.8 % (35.4-49); HEMOGLOBIN 8.3 GM/dL (11.7-16.9); LYMPH % 14.3 % (8-40); MCHC 33.3 g/dl (32.0-35.9); MEAN PLT VOLUME 8.9 fl (7.5-11.1); MONO % 14.1 % (3.8-10.2); PLATELET COUNT 89 K/MM3 (134-434); RBC 2.76 M/mm3 (4.00-5.60); RDW 15.4 % (11.9-15.9)
[2020-02-18] MEDS: ACETAMINOPHEN 325 MG TABLET (FP) PO SCH ×3 (06:34→17:43)
[2020-02-18 07:36] LABS: INR 1.15 (0.83-1.09); PROTHROMBIN TIME (PATIENT) 13.8 SEC (9.7-13.0)
[2020-02-18 07:55] LABS: CALCIUM 7.4 mg/dL (8.5-10.1)
[2020-02-18 07:56] LABS: BLOOD UREA NITROGEN 19.2 mg/dL (7-18)
[2020-02-18 07:58] LABS: CREATININE 0.9 mg/dL (0.55-1.3)
[2020-02-18 08:00] LABS: BILIRUBIN,TOTAL 0.7 mg/dL (0.2-1); TOT PROT 5.1 g/dl (6.4-8.2)
[2020-02-18 08:19] LABS: HEMOGLOBIN 8.3 GM/dL (11.7-16.9); MCH 29.4 pg (25.7-33.7); MCHC 33.3 g/dl (32.0-35.9); MEAN CELL VOLUME 88.3 fl (80-96); MEAN PLT VOLUME 8.8 fl (7.5-11.1); PLATELET COUNT 97 K/MM3 (134-434); RBC 2.83 M/mm3 (4.00-5.60); RDW 15.8 % (11.9-15.9); WHITE BLOOD COUNT 5.1 K/mm3 (4.0-10.0)
[2020-02-18] MEDS ORDERED: ENOXAPARIN NA (PORCINE) 60 MG/0.6 ML DISP.SYRIN SQ ONE (08:30)
[2020-02-18] MEDS: VALSARTAN 160 MG TABLET PO SCH ×2 (09:26→09:39)
[2020-02-18] MEDS: SENNOSIDES/DOCUSATE COMBO (SENNA PLUS) TABLET (UD) PO SCH ×2 (09:27→22:23)
[2020-02-18] MEDS: FERROUS SO4 325 MG TABLET (FP) PO SCH ×2 (09:27→22:27)
[2020-02-18] MEDS: PANTOPRAZOLE 40 MG TABLET PO SCH (09:27)
[2020-02-18] MEDS: amLODIPine BESYLATE 10 MG TABLET (FP) PO SCH ×2 (09:27→09:40)
[2020-02-18] MEDS: FINASTERIDE 5 MG TABLET (FP) PO SCH (09:28)
[2020-02-18] MEDS: UMECLIDINIUM/VILANTEROL (ANORO) 62.5/25 MCG INHALER IH SCH (09:28)
[2020-02-18] MEDS: TAMSULOSIN HCL 0.4 MG CAP PO SCH (09:28)
[2020-02-18] MEDS: POLYETHYLENE GLYCOL 3350 119 GM BTL PO SCH (09:29)
[2020-02-18] MEDS ORDERED: PT OWN MED DRAWER 7, Y5N ONE (09:32)
[2020-02-18] MEDS ORDERED: ENOXAPARIN NA (PORCINE) 40 MG/0.4 ML DISP.SYRIN SQ SCH (10:00)
[2020-02-18] MEDS ORDERED: CELECOXIB 200 MG CAPSULE PO SCH (10:00)
[2020-02-18] MEDS: PHENYTOIN NA EXTENDED 100 MG CAPSULE (FP) PO SCH (22:22)
[2020-02-19] MEDS: PIPERACILLIN/TAZOB 3.375 GM 3.375 GM in DEXTROSE 5%-WATER - 50 ML IVPB SCH ×3 (01:03→17:08)
[2020-02-19] MEDS: ACETAMINOPHEN 325 MG TABLET (FP) PO SCH ×4 (01:03→17:07)
[2020-02-19] MEDS: LACTATED RINGERS SOLUTION 1,000 ML/1,000 ML INFUS.BAG IV SCH (07:00)
[2020-02-19 08:49] LABS: HEMOGLOBIN 8.2 GM/dL (11.7-16.9); MCH 29.1 pg (25.7-33.7); MCHC 32.8 g/dl (32.0-35.9); MEAN CELL VOLUME 88.9 fl (80-96); MEAN PLT VOLUME 8.7 fl (7.5-11.1); PLATELET COUNT 122 K/MM3 (134-434); RBC 2.81 M/mm3 (4.00-5.60); WHITE BLOOD COUNT 4.3 K/mm3 (4.0-10.0)
[2020-02-19 08:56] LABS: INR 1.07 (0.83-1.09); PROTHROMBIN TIME (PATIENT) 12.9 SEC (9.7-13.0)
[2020-02-19 09:16] LABS: BLOOD UREA NITROGEN 14.1 mg/dL (7-18); CALCIUM 7.7 mg/dL (8.5-10.1)
[2020-02-19 09:17] LABS: MAGNESIUM 2.3 mg/dL (1.8-2.4)
[2020-02-19 09:20] LABS: CREATININE 0.8 mg/dL (0.55-1.3); PHOSPHOROUS 2.6 mg/dL (2.5-4.9)
[2020-02-19] MEDS ORDERED: PIPERACILLIN/TAZOBACTAM 3.375 GM VIAL IVPB ONE ×3 (09:39→23:58)
[2020-02-19] MEDS ORDERED: DEXTROSE 5%-WATER - 50 ML IVPB ONE ×3 (09:40→23:59)
[2020-02-19] MEDS: VALSARTAN 160 MG TABLET PO SCH (10:24)
[2020-02-19] MEDS: PANTOPRAZOLE 40 MG TABLET PO SCH (10:24)
[2020-02-19] MEDS: SENNOSIDES/DOCUSATE COMBO (SENNA PLUS) TABLET (UD) PO SCH (10:25)
[2020-02-19] MEDS: amLODIPine BESYLATE 10 MG TABLET (FP) PO SCH (10:25)
[2020-02-19] MEDS: FINASTERIDE 5 MG TABLET (FP) PO SCH (10:25)
[2020-02-19] MEDS: FERROUS SO4 325 MG TABLET (FP) PO SCH ×2 (10:25→22:02)
[2020-02-19] MEDS: TAMSULOSIN HCL 0.4 MG CAP PO SCH (10:25)
[2020-02-19] MEDS: POLYETHYLENE GLYCOL 3350 119 GM BTL PO SCH (10:25)
[2020-02-19] MEDS: UMECLIDINIUM/VILANTEROL (ANORO) 62.5/25 MCG INHALER IH SCH (10:51)
[2020-02-19] MEDS ORDERED: FLU VACCINE (FLULAVAL) PF 60 MCG/0.5 ML SYRINGE 2020-2021 IM ONE (14:00)
[2020-02-19] MEDS ORDERED: WARFARIN NA 5 MG TABLET PO SCH (18:00)
[2020-02-19] MEDS ORDERED: WARFARIN NA 5 MG TABLET PO ONE (18:00)
[2020-02-19] MEDS: PHENYTOIN NA EXTENDED 100 MG CAPSULE (FP) PO SCH (22:01)
[2020-02-20] MEDS: SENNOSIDES/DOCUSATE COMBO (SENNA PLUS) TABLET (UD) PO SCH ×3 (02:11→22:07)
[2020-02-20] MEDS: PIPERACILLIN/TAZOB 3.375 GM 3.375 GM in DEXTROSE 5%-WATER - 50 ML IVPB SCH ×3 (02:11→17:41)
[2020-02-20] MEDS: LACTATED RINGERS SOLUTION 1,000 ML/1,000 ML INFUS.BAG IV SCH (02:11)
[2020-02-20] MEDS: ACETAMINOPHEN 325 MG TABLET (FP) PO SCH ×4 (02:12→22:08)
[2020-02-20] MEDS ORDERED: DEXTROSE 5%-WATER - 50 ML IVPB ONE ×2 (09:19→17:22)
[2020-02-20] MEDS ORDERED: PIPERACILLIN/TAZOBACTAM 3.375 GM VIAL IVPB ONE ×2 (09:19→17:22)
[2020-02-20] MEDS ORDERED: FLU VACCINE (FLULAVAL) PF 60 MCG/0.5 ML SYRINGE 2020-2021 IM ONE (10:00)
[2020-02-20] MEDS: PANTOPRAZOLE 40 MG TABLET PO SCH (10:07)
[2020-02-20] MEDS: amLODIPine BESYLATE 10 MG TABLET (FP) PO SCH (10:07)
[2020-02-20] MEDS: VALSARTAN 160 MG TABLET PO SCH (10:07)
[2020-02-20] MEDS: TAMSULOSIN HCL 0.4 MG CAP PO SCH (10:07)
[2020-02-20] MEDS: FINASTERIDE 5 MG TABLET (FP) PO SCH (10:07)
[2020-02-20] MEDS: FERROUS SO4 325 MG TABLET (FP) PO SCH ×2 (10:07→22:00)
[2020-02-20] MEDS: UMECLIDINIUM/VILANTEROL (ANORO) 62.5/25 MCG INHALER IH SCH (10:08)
[2020-02-20] MEDS: POLYETHYLENE GLYCOL 3350 119 GM BTL PO SCH (10:08)
[2020-02-20 13:28] LABS: BASO % 0.8 % (0-2.0); EOS % 8.6 % (0-4.5); HEMOGLOBIN 8.6 GM/dL (11.7-16.9); LYMPH % 19.2 % (8-40); MCH 29.9 pg (25.7-33.7); MEAN CELL VOLUME 90.7 fl (80-96); MEAN PLT VOLUME 8.2 fl (7.5-11.1); MONO % 12.1 % (3.8-10.2); NEUT % 59.3 % (42.8-82.8); PLATELET COUNT 163 K/MM3 (134-434); RBC 2.87 M/mm3 (4.00-5.60); RDW 15.9 % (11.9-15.9)
[2020-02-20 13:34] LABS: PROTHROMBIN TIME (PATIENT) 12.3 SEC (9.7-13.0)
[2020-02-20 14:00] LABS: ALBUMIN 2.3 g/dl (3.4-5.0); CALCIUM 7.7 mg/dL (8.5-10.1)
[2020-02-20 14:01] LABS: BLOOD UREA NITROGEN 10.4 mg/dL (7-18)
[2020-02-20 14:04] LABS: CREATININE 0.7 mg/dL (0.55-1.3)
[2020-02-20 14:05] LABS: BILIRUBIN,TOTAL 0.2 mg/dL (0.2-1); TOT PROT 5.9 g/dl (6.4-8.2)
[2020-02-20] MEDS ORDERED: WARFARIN NA 3 MG TABLET PO ONE (18:00)
[2020-02-20] MEDS: PHENYTOIN NA EXTENDED 100 MG CAPSULE (FP) PO SCH (22:10)
[2020-02-21] MEDS ORDERED: PIPERACILLIN/TAZOBACTAM 3.375 GM VIAL IVPB ONE ×3 (03:03→16:26)
[2020-02-21] MEDS: PIPERACILLIN/TAZOB 3.375 GM 3.375 GM in DEXTROSE 5%-WATER - 50 ML IVPB SCH ×3 (03:18→17:46)
[2020-02-21] MEDS: LACTATED RINGERS SOLUTION 1,000 ML/1,000 ML INFUS.BAG IV SCH ×2 (05:35→22:30)
[2020-02-21] MEDS: TAMSULOSIN HCL 0.4 MG CAP PO SCH (08:50)
[2020-02-21] MEDS ORDERED: DEXTROSE 5%-WATER - 50 ML IVPB ONE ×2 (09:10→16:26)
[2020-02-21] MEDS: amLODIPine BESYLATE 10 MG TABLET (FP) PO SCH (09:45)
[2020-02-21] MEDS: SENNOSIDES/DOCUSATE COMBO (SENNA PLUS) TABLET (UD) PO SCH ×2 (09:45→22:51)
[2020-02-21] MEDS: FERROUS SO4 325 MG TABLET (FP) PO SCH ×2 (09:45→22:52)
[2020-02-21] MEDS: VALSARTAN 160 MG TABLET PO SCH (09:45)
[2020-02-21] MEDS: PANTOPRAZOLE 40 MG TABLET PO SCH (09:45)
[2020-02-21] MEDS: FINASTERIDE 5 MG TABLET (FP) PO SCH (09:45)
[2020-02-21] MEDS: POLYETHYLENE GLYCOL 3350 119 GM BTL PO SCH (09:46)
[2020-02-21] MEDS: UMECLIDINIUM/VILANTEROL (ANORO) 62.5/25 MCG INHALER IH SCH (09:46)
[2020-02-21 12:24] LABS: BASO % 0.5 % (0-2.0); EOS % 6.8 % (0-4.5); HEMATOCRIT 27.2 % (35.4-49); LYMPH % 14.6 % (8-40); MCH 30.2 pg (25.7-33.7); MCHC 33.1 g/dl (32.0-35.9); MEAN CELL VOLUME 91.2 fl (80-96); MEAN PLT VOLUME 8.2 fl (7.5-11.1); NEUT % 66.1 % (42.8-82.8); PLATELET COUNT 178 K/MM3 (134-434); RBC 2.98 M/mm3 (4.00-5.60); RDW 15.8 % (11.9-15.9); WHITE BLOOD COUNT 5.2 K/mm3 (4.0-10.0)
[2020-02-21 12:33] LABS: INR 1.08 (0.83-1.09)
[2020-02-21 12:59] LABS: CALCIUM 8.1 mg/dL (8.5-10.1)
[2020-02-21 13:00] LABS: ALBUMIN 2.3 g/dl (3.4-5.0); BLOOD UREA NITROGEN 9.3 mg/dL (7-18)
[2020-02-21 13:03] LABS: CREATININE 0.8 mg/dL (0.55-1.3)
[2020-02-21 13:04] LABS: BILIRUBIN,TOTAL 0.6 mg/dL (0.2-1)
[2020-02-21] MEDS ORDERED: WARFARIN NA 5 MG TABLET PO ONE (18:00)
[2020-02-21] MEDS: PHENYTOIN NA EXTENDED 100 MG CAPSULE (FP) PO SCH (22:47)
[2020-02-22] MEDS ORDERED: DEXTROSE 5%-WATER - 50 ML IVPB ONE ×3 (01:24→17:15)
[2020-02-22] MEDS ORDERED: PIPERACILLIN/TAZOBACTAM 3.375 GM VIAL IVPB ONE ×3 (01:24→17:14)
[2020-02-22] MEDS: PIPERACILLIN/TAZOB 3.375 GM 3.375 GM in DEXTROSE 5%-WATER - 50 ML IVPB SCH ×3 (02:44→17:29)
[2020-02-22 07:56] LABS: BASO % 0.9 % (0-2.0); EOS % 7.7 % (0-4.5); HEMATOCRIT 26.5 % (35.4-49); HEMOGLOBIN 8.7 GM/dL (11.7-16.9); LYMPH % 22.2 % (8-40); MCH 29.5 pg (25.7-33.7); MCHC 32.9 g/dl (32.0-35.9); MEAN CELL VOLUME 89.7 fl (80-96); MONO % 14.1 % (3.8-10.2); NEUT % 55.1 % (42.8-82.8); PLATELET COUNT 195 K/MM3 (134-434); RBC 2.95 M/mm3 (4.00-5.60); RDW 15.8 % (11.9-15.9); WHITE BLOOD COUNT 5.5 K/mm3 (4.0-10.0)
[2020-02-22 08:02] LABS: INR 1.09 (0.83-1.09); PROTHROMBIN TIME (PATIENT) 13.4 SEC (9.7-13.0)
[2020-02-22 08:09] LABS: BLOOD UREA NITROGEN 10.8 mg/dL (7-18); CALCIUM 7.7 mg/dL (8.5-10.1)
[2020-02-22 08:13] LABS: CREATININE 0.9 mg/dL (0.55-1.3)
[2020-02-22] MEDS ORDERED: PT OWN MED DRAWER 7, Y5N ONE (09:54)
[2020-02-22] MEDS: SENNOSIDES/DOCUSATE COMBO (SENNA PLUS) TABLET (UD) PO SCH ×2 (10:23→21:11)
[2020-02-22] MEDS: amLODIPine BESYLATE 10 MG TABLET (FP) PO SCH (10:23)
[2020-02-22] MEDS: FERROUS SO4 325 MG TABLET (FP) PO SCH ×2 (10:23→21:11)
[2020-02-22] MEDS: VALSARTAN 160 MG TABLET PO SCH (10:23)
[2020-02-22] MEDS: PANTOPRAZOLE 40 MG TABLET PO SCH (10:23)
[2020-02-22] MEDS: TAMSULOSIN HCL 0.4 MG CAP PO SCH (10:24)
[2020-02-22] MEDS: POLYETHYLENE GLYCOL 3350 119 GM BTL PO SCH (10:24)
[2020-02-22] MEDS: FINASTERIDE 5 MG TABLET (FP) PO SCH (10:24)
[2020-02-22] MEDS: LACTATED RINGERS SOLUTION 1,000 ML/1,000 ML INFUS.BAG IV SCH ×2 (10:24→21:15)
[2020-02-22] MEDS: ENOXAPARIN NA (PORCINE) 40 MG/0.4 ML DISP.SYRIN SQ SCH (10:24)
[2020-02-22] MEDS: UMECLIDINIUM/VILANTEROL (ANORO) 62.5/25 MCG INHALER IH SCH (10:25)
[2020-02-22] MEDS ORDERED: WARFARIN NA 3 MG TABLET PO SCH (18:00)
[2020-02-22] MEDS: PHENYTOIN NA EXTENDED 100 MG CAPSULE (FP) PO SCH (21:11)
[2020-02-23] MEDS ORDERED: PIPERACILLIN/TAZOBACTAM 3.375 GM VIAL IVPB ONE ×3 (00:40→16:40)
[2020-02-23] MEDS ORDERED: DEXTROSE 5%-WATER - 50 ML IVPB ONE ×3 (00:40→16:40)
[2020-02-23] MEDS ORDERED: ACETAMINOPHEN 325 MG TABLET (FP) PO PRN (00:47)
[2020-02-23] MEDS: PIPERACILLIN/TAZOB 3.375 GM 3.375 GM in DEXTROSE 5%-WATER - 50 ML IVPB SCH ×4 (01:00→17:39)
[2020-02-23] MEDS ORDERED: oxyCODONE HCL 5 MG TABLET PO PRN ×2 (09:07)
[2020-02-23] MEDS ORDERED: PT OWN MED DRAWER 7, Y5N ONE ×2 (09:52→21:30)
[2020-02-23] MEDS: ENOXAPARIN NA (PORCINE) 40 MG/0.4 ML DISP.SYRIN SQ SCH (10:22)
[2020-02-23] MEDS: FINASTERIDE 5 MG TABLET (FP) PO SCH (10:23)
[2020-02-23] MEDS: amLODIPine BESYLATE 10 MG TABLET (FP) PO SCH (10:23)
[2020-02-23] MEDS: SENNOSIDES/DOCUSATE COMBO (SENNA PLUS) TABLET (UD) PO SCH ×3 (10:23→21:42)
[2020-02-23] MEDS: VALSARTAN 160 MG TABLET PO SCH (10:23)
[2020-02-23] MEDS: FERROUS SO4 325 MG TABLET (FP) PO SCH ×2 (10:23→21:36)
[2020-02-23] MEDS: PANTOPRAZOLE 40 MG TABLET PO SCH (10:28)
[2020-02-23] MEDS: POLYETHYLENE GLYCOL 3350 119 GM BTL PO SCH (10:28)
[2020-02-23] MEDS: TAMSULOSIN HCL 0.4 MG CAP PO SCH (10:28)
[2020-02-23] MEDS: UMECLIDINIUM/VILANTEROL (ANORO) 62.5/25 MCG INHALER IH SCH (10:28)
[2020-02-23 11:20] LABS: INR 1.09 (0.83-1.09); PROTHROMBIN TIME (PATIENT) 13.1 SEC (9.7-13.0)
[2020-02-23 11:25] LABS: BASO % 0.8 % (0-2.0); EOS % 6.5 % (0-4.5); HEMATOCRIT 29.6 % (35.4-49); HEMOGLOBIN 9.5 GM/dL (11.7-16.9); LYMPH % 19.3 % (8-40); MCH 29.3 pg (25.7-33.7); MCHC 32.1 g/dl (32.0-35.9); MEAN CELL VOLUME 91.3 fl (80-96); MEAN PLT VOLUME 7.3 fl (7.5-11.1); MONO % 14.3 % (3.8-10.2); NEUT % 59.1 % (42.8-82.8); PLATELET COUNT 248 K/MM3 (134-434); RBC 3.24 M/mm3 (4.00-5.60); RDW 16.3 % (11.9-15.9); WHITE BLOOD COUNT 5.7 K/mm3 (4.0-10.0)
[2020-02-23 11:31] LABS: ALBUMIN 2.5 g/dl (3.4-5.0)
[2020-02-23 11:32] LABS: BLOOD UREA NITROGEN 11.2 mg/dL (7-18)
[2020-02-23 11:35] LABS: BILIRUBIN,TOTAL 0.5 mg/dL (0.2-1); CREATININE 0.8 mg/dL (0.55-1.3); TOT PROT 6.3 g/dl (6.4-8.2)
[2020-02-23 15:10] VITALS: BMI 36.0
[2020-02-23] MEDS ORDERED: WARFARIN NA 5 MG TABLET PO SCH (18:00)
[2020-02-23] MEDS: PHENYTOIN NA EXTENDED 100 MG CAPSULE (FP) PO SCH (22:40)
[2020-02-24] MEDS ORDERED: PIPERACILLIN/TAZOBACTAM 3.375 GM VIAL IVPB ONE ×5 (00:58→23:55)
[2020-02-24] MEDS ORDERED: DEXTROSE 5%-WATER - 50 ML IVPB ONE ×5 (00:58→23:55)
[2020-02-24] MEDS: PIPERACILLIN/TAZOB 3.375 GM 3.375 GM in DEXTROSE 5%-WATER - 50 ML IVPB SCH ×3 (01:11→18:54)
[2020-02-24 07:54] LABS: BASO % 0.7 % (0-2.0); EOS % 6.8 % (0-4.5); HEMATOCRIT 27.7 % (35.4-49); LYMPH % 20.3 % (8-40); MCH 29.7 pg (25.7-33.7); MCHC 32.7 g/dl (32.0-35.9); MEAN PLT VOLUME 7.2 fl (7.5-11.1); NEUT % 58.2 % (42.8-82.8); PLATELET COUNT 263 K/MM3 (134-434); RBC 3.04 M/mm3 (4.00-5.60); WHITE BLOOD COUNT 5.6 K/mm3 (4.0-10.0)
[2020-02-24 08:06] LABS: INR 1.12 (0.83-1.09); PROTHROMBIN TIME (PATIENT) 13.5 SEC (9.7-13.0)
[2020-02-24 08:16] LABS: ALBUMIN 2.3 g/dl (3.4-5.0); BLOOD UREA NITROGEN 11.2 mg/dL (7-18); CALCIUM 7.8 mg/dL (8.5-10.1)
[2020-02-24 08:19] LABS: CREATININE 0.9 mg/dL (0.55-1.3)
[2020-02-24 08:22] LABS: BILIRUBIN,TOTAL 0.3 mg/dL (0.2-1); TOT PROT 5.8 g/dl (6.4-8.2)
[2020-02-24] MEDS: ENOXAPARIN NA (PORCINE) 40 MG/0.4 ML DISP.SYRIN SQ SCH (09:51)
[2020-02-24] MEDS: amLODIPine BESYLATE 10 MG TABLET (FP) PO SCH (09:51)
[2020-02-24] MEDS: VALSARTAN 160 MG TABLET PO SCH (09:52)
[2020-02-24] MEDS: TAMSULOSIN HCL 0.4 MG CAP PO SCH (09:52)
[2020-02-24] MEDS: PANTOPRAZOLE 40 MG TABLET PO SCH (09:52)
[2020-02-24] MEDS: POLYETHYLENE GLYCOL 3350 119 GM BTL PO SCH (09:53)
[2020-02-24] MEDS: SENNOSIDES/DOCUSATE COMBO (SENNA PLUS) TABLET (UD) PO SCH ×2 (09:53→20:59)
[2020-02-24] MEDS: FINASTERIDE 5 MG TABLET (FP) PO SCH (09:54)
[2020-02-24] MEDS: UMECLIDINIUM/VILANTEROL (ANORO) 62.5/25 MCG INHALER IH SCH (09:54)
[2020-02-24] MEDS: FERROUS SO4 325 MG TABLET (FP) PO SCH ×2 (09:54→20:59)
[2020-02-24] MEDS ORDERED: WARFARIN NA 5 MG TABLET PO ONE (18:00)
[2020-02-24] MEDS ORDERED: PT OWN MED DRAWER 7, Y5N ONE (20:21)
[2020-02-24] MEDS: PHENYTOIN NA EXTENDED 100 MG CAPSULE (FP) PO SCH (20:59)
[2020-02-25 07:43] LABS: INR 1.09 (0.83-1.09); PROTHROMBIN TIME (PATIENT) 13.4 SEC (9.7-13.0)
[2020-02-25 07:50] LABS: BASO % 0.9 % (0-2.0); HEMATOCRIT 30.2 % (35.4-49); HEMOGLOBIN 9.8 GM/dL (11.7-16.9); LYMPH % 20.9 % (8-40); MCH 29.7 pg (25.7-33.7); MCHC 32.4 g/dl (32.0-35.9); MEAN CELL VOLUME 91.7 fl (80-96); MEAN PLT VOLUME 7.3 fl (7.5-11.1); MONO % 13.4 % (3.8-10.2); NEUT % 56.8 % (42.8-82.8); PLATELET COUNT 311 K/MM3 (134-434); RDW 16.2 % (11.9-15.9); WHITE BLOOD COUNT 5.4 K/mm3 (4.0-10.0)
[2020-02-25 08:11] LABS: ALBUMIN 2.5 g/dl (3.4-5.0); BLOOD UREA NITROGEN 13.8 mg/dL (7-18)
[2020-02-25 08:13] LABS: CALCIUM 8.1 mg/dL (8.5-10.1)
[2020-02-25 08:14] LABS: CREATININE 0.9 mg/dL (0.55-1.3)
[2020-02-25 08:16] LABS: BILIRUBIN,TOTAL 0.3 mg/dL (0.2-1); TOT PROT 6.4 g/dl (6.4-8.2)
[2020-02-25] MEDS: ENOXAPARIN NA (PORCINE) 40 MG/0.4 ML DISP.SYRIN SQ SCH (10:04)
[2020-02-25] MEDS: TAMSULOSIN HCL 0.4 MG CAP PO SCH (10:05)
[2020-02-25] MEDS: SENNOSIDES/DOCUSATE COMBO (SENNA PLUS) TABLET (UD) PO SCH ×2 (10:05→21:08)
[2020-02-25] MEDS: FINASTERIDE 5 MG TABLET (FP) PO SCH (10:05)
[2020-02-25] MEDS: UMECLIDINIUM/VILANTEROL (ANORO) 62.5/25 MCG INHALER IH SCH (10:05)
[2020-02-25] MEDS: PANTOPRAZOLE 40 MG TABLET PO SCH (10:05)
[2020-02-25] MEDS: amLODIPine BESYLATE 10 MG TABLET (FP) PO SCH (10:05)
[2020-02-25] MEDS: POLYETHYLENE GLYCOL 3350 119 GM BTL PO SCH ×2 (10:05→10:16)
[2020-02-25] MEDS: VALSARTAN 160 MG TABLET PO SCH (10:05)
[2020-02-25] MEDS: FERROUS SO4 325 MG TABLET (FP) PO SCH ×2 (10:05→21:07)
[2020-02-25] MEDS ORDERED: WARFARIN NA 10 MG TABLET PO ONE (18:00)
[2020-02-25] MEDS: PHENYTOIN NA EXTENDED 100 MG CAPSULE (FP) PO SCH (21:07)
[2020-02-26] MEDS ORDERED: PT OWN MED DRAWER 7, Y5N ONE (04:30)
[2020-02-26 07:43] LABS: BASO % 0.6 % (0-2.0); EOS % 7.7 % (0-4.5); HEMATOCRIT 31.2 % (35.4-49); HEMOGLOBIN 9.8 GM/dL (11.7-16.9); LYMPH % 22.8 % (8-40); MCH 28.9 pg (25.7-33.7); MCHC 31.5 g/dl (32.0-35.9); MEAN CELL VOLUME 91.7 fl (80-96); MEAN PLT VOLUME 7.1 fl (7.5-11.1); MONO % 12.1 % (3.8-10.2); NEUT % 56.8 % (42.8-82.8); PLATELET COUNT 353 K/MM3 (134-434); RDW 16.2 % (11.9-15.9); WHITE BLOOD COUNT 6.8 K/mm3 (4.0-10.0)
[2020-02-26 07:52] LABS: INR 1.15 (0.83-1.09); PROTHROMBIN TIME (PATIENT) 13.9 SEC (9.7-13.0)
[2020-02-26 08:00] LABS: ALBUMIN 2.6 g/dl (3.4-5.0); BLOOD UREA NITROGEN 14.8 mg/dL (7-18); CALCIUM 8.7 mg/dL (8.5-10.1)
[2020-02-26 08:03] LABS: CREATININE 0.9 mg/dL (0.55-1.3)
[2020-02-26 08:05] LABS: BILIRUBIN,TOTAL 0.7 mg/dL (0.2-1); TOT PROT 6.7 g/dl (6.4-8.2)
[2020-02-26] MEDS: SENNOSIDES/DOCUSATE COMBO (SENNA PLUS) TABLET (UD) PO SCH ×2 (09:40→21:39)
[2020-02-26] MEDS: POLYETHYLENE GLYCOL 3350 119 GM BTL PO SCH (09:40)
[2020-02-26] MEDS: ENOXAPARIN NA (PORCINE) 40 MG/0.4 ML DISP.SYRIN SQ SCH (09:47)
[2020-02-26] MEDS: FERROUS SO4 325 MG TABLET (FP) PO SCH ×2 (09:47→21:38)
[2020-02-26] MEDS: VALSARTAN 160 MG TABLET PO SCH (09:48)
[2020-02-26] MEDS: amLODIPine BESYLATE 10 MG TABLET (FP) PO SCH (09:48)
[2020-02-26] MEDS: PANTOPRAZOLE 40 MG TABLET PO SCH (09:48)
[2020-02-26] MEDS: FINASTERIDE 5 MG TABLET (FP) PO SCH (09:48)
[2020-02-26] MEDS: TAMSULOSIN HCL 0.4 MG CAP PO SCH (09:48)
[2020-02-26] MEDS: ACETAMINOPHEN 500 MG TABLET (FP) PO PRN (14:26)
[2020-02-26] MEDS: UMECLIDINIUM/VILANTEROL (ANORO) 62.5/25 MCG INHALER IH SCH (18:02)
[2020-02-26] MEDS: WARFARIN NA 10 MG TABLET PO SCH (18:02)
[2020-02-26] MEDS: PHENYTOIN NA EXTENDED 100 MG CAPSULE (FP) PO SCH (21:38)
[2020-02-27] MEDS: ENOXAPARIN NA (PORCINE) 40 MG/0.4 ML DISP.SYRIN SQ SCH (09:06)
[2020-02-27] MEDS: TAMSULOSIN HCL 0.4 MG CAP PO SCH (09:07)
[2020-02-27] MEDS: FERROUS SO4 325 MG TABLET (FP) PO SCH ×2 (09:08→21:10)
[2020-02-27] MEDS: amLODIPine BESYLATE 10 MG TABLET (FP) PO SCH (09:08)
[2020-02-27] MEDS: VALSARTAN 160 MG TABLET PO SCH (09:08)
[2020-02-27] MEDS: PANTOPRAZOLE 40 MG TABLET PO SCH (09:09)
[2020-02-27] MEDS: POLYETHYLENE GLYCOL 3350 119 GM BTL PO SCH (09:09)
[2020-02-27] MEDS: FINASTERIDE 5 MG TABLET (FP) PO SCH (09:09)
[2020-02-27] MEDS: SENNOSIDES/DOCUSATE COMBO (SENNA PLUS) TABLET (UD) PO SCH ×2 (09:09→21:10)
[2020-02-27] MEDS: UMECLIDINIUM/VILANTEROL (ANORO) 62.5/25 MCG INHALER IH SCH (09:11)
[2020-02-27 13:17] LABS: BASO % 0.7 % (0-2.0); EOS % 5.8 % (0-4.5); HEMATOCRIT 29.6 % (35.4-49); HEMOGLOBIN 9.6 GM/dL (11.7-16.9); LYMPH % 14.5 % (8-40); MCH 29.9 pg (25.7-33.7); MCHC 32.5 g/dl (32.0-35.9); MEAN CELL VOLUME 92.1 fl (80-96); MONO % 10.2 % (3.8-10.2); NEUT % 68.8 % (42.8-82.8); PLATELET COUNT 351 K/MM3 (134-434); RBC 3.21 M/mm3 (4.00-5.60); RDW 16.8 % (11.9-15.9); WHITE BLOOD COUNT 7.5 K/mm3 (4.0-10.0)
[2020-02-27 13:30] LABS: INR 1.82 (0.83-1.09); PROTHROMBIN TIME (PATIENT) 21.6 SEC (9.7-13.0)
[2020-02-27] MEDS: WARFARIN NA 10 MG TABLET PO SCH (17:28)
[2020-02-27] MEDS ORDERED: PT OWN MED DRAWER 7, Y5N ONE (20:19)
[2020-02-27] MEDS: PHENYTOIN NA EXTENDED 100 MG CAPSULE (FP) PO SCH (21:10)
[2020-02-27] MEDS: ACETAMINOPHEN 500 MG TABLET (FP) PO PRN (22:00)
[2020-02-28 07:30] LABS: BASO % 0.7 % (0-2.0); EOS % 5.8 % (0-4.5); HEMATOCRIT 29.5 % (35.4-49); HEMOGLOBIN 9.5 GM/dL (11.7-16.9); LYMPH % 16.3 % (8-40); MCH 29.8 pg (25.7-33.7); MCHC 32.4 g/dl (32.0-35.9); MEAN CELL VOLUME 92.2 fl (80-96); MONO % 8.7 % (3.8-10.2); NEUT % 68.5 % (42.8-82.8); PLATELET COUNT 363 K/MM3 (134-434); RDW 16.8 % (11.9-15.9)
[2020-02-28 07:40] LABS: INR 2.45 (0.83-1.09); PROTHROMBIN TIME (PATIENT) 28.9 SEC (9.7-13.0)
[2020-02-28 07:53] LABS: CALCIUM 8.4 mg/dL (8.5-10.1)
[2020-02-28 07:54] LABS: ALBUMIN 2.4 g/dl (3.4-5.0); BLOOD UREA NITROGEN 15.1 mg/dL (7-18)
[2020-02-28 07:57] LABS: CREATININE 0.8 mg/dL (0.55-1.3)
[2020-02-28 07:58] LABS: BILIRUBIN,TOTAL 0.9 mg/dL (0.2-1); TOT PROT 6.2 g/dl (6.4-8.2)
[2020-02-28] MEDS ORDERED: WARFARIN NA 10 MG TABLET PO SCH (09:21)
[2020-02-28] MEDS: TAMSULOSIN HCL 0.4 MG CAP PO SCH (09:51)
[2020-02-28] MEDS: UMECLIDINIUM/VILANTEROL (ANORO) 62.5/25 MCG INHALER IH SCH (09:52)
[2020-02-28] MEDS: VALSARTAN 160 MG TABLET PO SCH (09:52)
[2020-02-28] MEDS: FINASTERIDE 5 MG TABLET (FP) PO SCH (09:52)
[2020-02-28] MEDS: FERROUS SO4 325 MG TABLET (FP) PO SCH ×2 (09:52→21:31)
[2020-02-28] MEDS: amLODIPine BESYLATE 10 MG TABLET (FP) PO SCH (09:52)
[2020-02-28] MEDS: POLYETHYLENE GLYCOL 3350 119 GM BTL PO SCH (09:53)
[2020-02-28] MEDS: SENNOSIDES/DOCUSATE COMBO (SENNA PLUS) TABLET (UD) PO SCH ×2 (09:53→21:31)
[2020-02-28] MEDS: PANTOPRAZOLE 40 MG TABLET PO SCH (09:55)
[2020-02-28] MEDS ORDERED: DEXTROSE 5%-WATER - 50 ML IVPB ONE ×2 (11:53→14:44)
[2020-02-28] MEDS ORDERED: PIPERACILLIN/TAZOBACTAM 3.375 GM VIAL IVPB ONE ×2 (11:53→14:43)
[2020-02-28] MEDS: PIPERACILLIN/TAZOB 3.375 GM 3.375 GM in DEXTROSE 5%-WATER - 50 ML IVPB SCH ×2 (12:43→17:26)
[2020-02-28] MEDS ORDERED: WARFARIN NA 5 MG TABLET ONE (16:39)
[2020-02-28] MEDS ORDERED: WARFARIN NA 3 MG TABLET ONE (16:40)
[2020-02-28] MEDS ORDERED: WARFARIN NA 5 MG, WARFARIN NA 3 MG PO SCH (18:00)
[2020-02-28] MEDS: PHENYTOIN NA EXTENDED 100 MG CAPSULE (FP) PO SCH (21:30)
[2020-02-29] MEDS ORDERED: PIPERACILLIN/TAZOBACTAM 3.375 GM VIAL IVPB ONE ×2 (00:45→09:53)
[2020-02-29] MEDS ORDERED: DEXTROSE 5%-WATER - 50 ML IVPB ONE ×2 (00:45→09:53)
[2020-02-29] MEDS: PIPERACILLIN/TAZOB 3.375 GM 3.375 GM in DEXTROSE 5%-WATER - 50 ML IVPB SCH ×2 (01:00→09:58)
[2020-02-29 07:47] LABS: INR 2.97 (0.83-1.09); PROTHROMBIN TIME (PATIENT) 35.4 SEC (9.7-13.0)
[2020-02-29 07:48] LABS: EOS % 5.6 % (0-4.5); HEMATOCRIT 29.5 % (35.4-49); HEMOGLOBIN 9.7 GM/dL (11.7-16.9); MCHC 32.7 g/dl (32.0-35.9); MEAN CELL VOLUME 91.5 fl (80-96); MEAN PLT VOLUME 7.1 fl (7.5-11.1); MONO % 11.4 % (3.8-10.2); PLATELET COUNT 362 K/MM3 (134-434); RBC 3.22 M/mm3 (4.00-5.60); RDW 17.1 % (11.9-15.9); WHITE BLOOD COUNT 6.3 K/mm3 (4.0-10.0)
[2020-02-29] MEDS ORDERED: WARFARIN NA 3 MG TABLET PO SCH (07:54)
[2020-02-29 08:06] LABS: CALCIUM 8.5 mg/dL (8.5-10.1)
[2020-02-29 08:07] LABS: ALBUMIN 2.5 g/dl (3.4-5.0); BLOOD UREA NITROGEN 15.4 mg/dL (7-18)
[2020-02-29 08:10] LABS: CREATININE 0.9 mg/dL (0.55-1.3)
[2020-02-29 08:12] LABS: BILIRUBIN,TOTAL 0.7 mg/dL (0.2-1); TOT PROT 6.2 g/dl (6.4-8.2)
[2020-02-29] MEDS: FINASTERIDE 5 MG TABLET (FP) PO SCH (09:58)
[2020-02-29] MEDS: PANTOPRAZOLE 40 MG TABLET PO SCH (09:58)
[2020-02-29] MEDS: VALSARTAN 160 MG TABLET PO SCH (09:59)
[2020-02-29] MEDS: amLODIPine BESYLATE 10 MG TABLET (FP) PO SCH (09:59)
[2020-02-29] MEDS: TAMSULOSIN HCL 0.4 MG CAP PO SCH (09:59)
[2020-02-29] MEDS: FERROUS SO4 325 MG TABLET (FP) PO SCH (09:59)
[2020-02-29] MEDS: SENNOSIDES/DOCUSATE COMBO (SENNA PLUS) TABLET (UD) PO SCH (10:06)
[2020-02-29] MEDS: POLYETHYLENE GLYCOL 3350 119 GM BTL PO SCH (10:06)
[2020-02-29] MEDS: UMECLIDINIUM/VILANTEROL (ANORO) 62.5/25 MCG INHALER IH SCH (10:06)
[2020-02-29 14:52] VITALS: BP 121/76; PULSE 96; TEMP 98.2
== END 2020-02-29 17:42 | DRG 467 ==
LOC: J2C 04:16 → UNDOADMIN 04:16 → J2C 02-15 04:11 → J4W 02-15 23:44 → J7W 02-23 12:23
PROVIDERS: ADMIT Orthopaedic Surgery Orthopaedic Surgery of the Spine; ATTEND Student in an Organized Health Care Education/Training Program
PROC: 0SPD0JZ Removal of Synthetic Substitute from Left Knee Joint, Open Approach (ICD-10-PCS; principal; 2020-02-15)
PROC: 0SRD0J9 Replacement of Left Knee Joint with Synthetic Substitute, Cemented, Open Approach (ICD-10-PCS; 2020-02-15)
PROC: 0QBC0ZZ Excision of Left Lower Femur, Open Approach (ICD-10-PCS; 2020-02-15)
PROC: 0QBH0ZZ Excision of Left Tibia, Open Approach (ICD-10-PCS; 2020-02-15)
PROC: 0JBP0ZX Excision of Left Lower Leg Subcutaneous Tissue and Fascia, Open Approach, Diagnostic (ICD-10-PCS; 2020-02-15)
PROC: 30233N1 Transfusion of Nonautologous Red Blood Cells into Peripheral Vein, Percutaneous Approach (ICD-10-PCS; 2020-02-17)
PROC: 02HV33Z Insertion of Infusion Device into Superior Vena Cava, Percutaneous Approach (ICD-10-PCS; 2020-02-29)
PROC: B518ZZA Fluoroscopy of Superior Vena Cava, Guidance (ICD-10-PCS; 2020-02-29)
DX: T84.54XA Infection and inflammatory reaction due to internal left knee prosthesis, initial encounter (principal); D62 Acute posthemorrhagic anemia; Z47.1 Aftercare following joint replacement surgery; M89.562 Osteolysis, left lower leg; Y83.8 Other surgical procedures as the cause of abnormal reaction of the patient, or of later complication, without mention of misadventure at the time of the procedure; I10 Essential (primary) hypertension; N40.0 Benign prostatic hyperplasia without lower urinary tract symptoms; J44.9 Chronic obstructive pulmonary disease, unspecified; G40.909 Epilepsy, unspecified, not intractable, without status epilepticus; K21.9 Gastro-esophageal reflux disease without esophagitis; Z86.718 Personal history of other venous thrombosis and embolism; Z96.652 Presence of left artificial knee joint
CPT/HCPCS: 36415; 36430; 36569; 73560-TC-LT-FY; 77001-TC-FY; 80048; 80053; 82962; 83735; 84100; 85025; 85027; 85610; 85730; 86022; 86850; 86900; 86901; 86922; 87070; 87102; 87116; 87205; 87206; 87210; 88304-TC; 88305-TC; 88311-TC; 88331-TC; 94760; 97116-GP; 97162-GP; C1751; C9803; J1644; P9058; Q2036; U0003